=== PATIENT | female | born 1960 | race American Indian/Alaskan Native ===

== ENCOUNTER 2016-11-22 06:56 | Inpatient (IN) | payer MEDICARE ==
[2016-11-22] MEDS ORDERED: ECOTRIN PO ONE (07:26)
[2016-11-22 07:51] LABS: Basophils % (Auto) 0.6 % (0.0-1.8); Eosinophils % (Auto) 2.3 % (0.0-4.3); Hematocrit 30.7 % (30.3-42.9); Hemoglobin 10.2 gm/dl (10.1-14.3); Mean Corpuscular HGB Conc 33 % (30-34); Mean Corpuscular Hemoglobin 29 pg (28-32); Mean Corpuscular Volume 87 fl (79-97); Platelet Count 161 K/mm3 (140-440); Red Blood Count 3.52 M/mm3 (3.65-5.03); Red Cell Distribution Width 13.9 % (13.2-15.2); White Blood Count 5.9 K/mm3 (4.5-11.0)
[2016-11-22 07:53] LABS: INR 1.14 (0.87-1.13)
[2016-11-22 07:54] LABS: BUN/Creatinine Ratio 17.85; Calcium 9.1 mg/dL (8.4-10.2); Potassium 4.9 mmol/L (3.6-5.0)
[2016-11-22] MEDS ORDERED: NACL 0.9% 500 ML 500 ML IV SCH (08:00)
[2016-11-22] MEDS ORDERED: PLAVIX PO ONE (08:56)
[2016-11-22] MEDS ORDERED: NITROGLYCERIN SYRINGE 3 ML ONE (09:05)
[2016-11-22] MEDS ORDERED: VERSED ONE (09:05)
[2016-11-22] MEDS ORDERED: HEPARIN/NS 5000 UNIT/500ML(CATH LAB) 1,000 ML IR ONE (09:05)
[2016-11-22] MEDS ORDERED: XYLOCAINE 2% INFILTRATI ONE (09:05)
[2016-11-22] MEDS ORDERED: HEPARIN/NS 5000 UNIT/500ML(CATH LAB) 500 ML IR ONE (09:05)
[2016-11-22] MEDS: SUBLIMAZE ONE ×3 (10:06→10:37)
[2016-11-22] MEDS: HEPARIN 10,000 UNITS/10 ML ONE ×2 (10:31→10:35)
[2016-11-22] MEDS ORDERED: PLAVIX ONE (10:55)
[2016-11-22] MEDS ORDERED: ALUM-MAG HYDROX-SIMETH 200-200-20MG/5ML ONE (10:55)
--- NOTE | 2016-11-22 12:10 | Cardiac Catherization Report ---
CARDIAC CATHETERIZATION AND CORONARY ANGIOPLASTY REPORT REASON FOR PROCEDURE: The patient is a 56-year-old woman, status post 4-way coronary artery bypass done in 2003. She presents with unstable angina, abnormal outpatient stress test, was recommended for a right and left heart catheterization with bypass grafts. PROCEDURES: 1. Right heart catheterization. 2. Left heart catheterization with coronary angiography. 3. Saphenous vein and left internal mammary artery graft angiography. 4. Left ventriculography. 5. Coronary intervention with coronary stent implantation to the saphenous vein graft to the right coronary artery. The patient was prepped and draped in a sterile fashion after informed consent. The right femoral artery and vein were both entered using the Seldinger technique followed by placement of a 6-Venezuelan sheath in the artery and an 8-Venezuelan sheath in the vein. A [place]-Heri catheterization was performed with a [place]-Heri catheter advanced to the pulmonary artery position. A pigtail catheter was then advanced into the left ventricle. Cardiac output was measured using the thermodilution method. Simultaneous right and left heart filling pressures were then measured. The right heart [place]-Heri catheter was then withdrawn and right-sided filling pressures were measured in the right ventricle and the right atrial positions. Left ventricular angiography was then performed following which the pigtail catheter was withdrawn across the aortic valve and transaortic pressures were measured. Following this, simultaneous left and right coronary angiography was performed using #4 left Gabriela catheter and a #4 right Gabriela catheter. The right Gabriela catheter was then used for saphenous vein angiography. Following this, a left internal mammary artery catheter was used for left internal mammary artery graft angiography. FINDINGS: HEMODYNAMICS: The mean right atrial pressure was 20. Right ventricular pressure was 60/20-25. Pulmonary artery pressure was 60/30. The mean pulmonary artery wedge pressure was 25. Left ventricular end diastolic pressure was 25-30. Ascending aortic pressure was 177/81. There was no significant pressure gradient on pullback across the aortic valve. Cardiac output was 4.8 liters per minute. LEFT VENTRICULAR ANGIOGRAPHY: There was mild left ventricular systolic dysfunction, estimated ejection fraction of 40-45%. CORONARY ANGIOGRAPHY: The left main coronary artery contained mild irregularities. The left anterior descending artery was completely occluded at its ostium. This was a long segment of chronic total occlusion. The left internal mammary artery graft to the LAD was patent with good anastomosis to the mid LAD and good distal runoff. The saphenous vein graft that was described to the diagonal branch of the LAD was occluded at its ostium. The tanacross circumflex was a fairly large system, that terminated in two large obtuse marginal branches. There was a long segment of moderately severe disease of the proximal AV groove circumflex leading to these large terminal obtuse marginals. In the proximal circumflex, there was an up to 75-80% stenosis. The saphenous vein graft to the circumflex system was occluded at its ostium and nonfunctioning. The tanacross right coronary artery was dominant. This vessel was also occluded in its proximal segment. This was a long segment of chronic total occlusion. The saphenous vein graft to the distal right coronary artery contained a proximal, greater than 99% stenosis associated with delayed antegrade flow. CORONARY ANGIOPLASTY AND STENTING: After review of the angiograms, we recommended two targets for percutaneous revascularization. At this setting, we were concerned about subtotal occlusion of the vein graft to the distal right coronary artery. This was recommended for ad hoc coronary intervention followed by staged intervention at a later date to the tanacross proximal circumflex. We selected a right Gabriela guiding catheter and advanced to the ostium of the right coronary vein graft. A 0.014 inch Wine Maker 50 guidewire was then introduced across the stenotic segment. Following wire placement, in a primary stenting maneuver, we deployed a 3.0 x 15 mm Resolute drug-eluting stent, and inflated the stent to optimal pressures. Following stenting, angiograms revealed an excellent angiographic result at the treated segment, 0 residual stenosis and HANK 3 flow was restored down the vein graft. It also revealed that there was diffuse disease of this vein graft, with moderate narrowing of the distal segment before its anastomosis into the right posterior descending branch. No additional interventions were done to the diffuse moderate disease of the distal segments of the vein graft. HANK 3 flow was established and there was an excellent angiographic result at the primary treated lesion at the proximal graft. The procedure was well tolerated by the patient and there were no complications. The catheters were removed, sheath removed, hemostasis achieved using manual compression. The patient was returned to the postprocedure unit in stable condition. CONCLUSIONS: 1. Moderate to severe elevation of the right and left heart filling pressures, moderate to severe pulmonary hypertension. 2. Severe 3-vessel coronary artery disease. 3. Patent left internal mammary artery graft to the LAD. 4. Occluded saphenous vein grafts x 2, intended targets were the diagonal branch of the LAD and the obtuse marginal branch of the circumflex. 5. Subtotal occlusion, 99% stenosis of the proximal segment of the saphenous vein graft to the distal right coronary artery. 6. Mild left ventricular systolic dysfunction, ejection fraction 40-45%. 7. Successful ad hoc angioplasty and stenting of the saphenous vein graft to the right coronary artery, excellent angiographic results following deployment of a 3.0 mm drug-eluting stent. The patient will be recommended for elective staged coronary intervention to the proximal AV groove circumflex. [facility]# [id number] [place]/NT[place]
[2016-11-22] MEDS ORDERED: CATAPRES PO PRN (12:53)
--- NOTE | 2016-11-22 12:57 | Event Note ---
Date: 11/22/16 Outpatient cardiac cath with successful PCI of SVG to RCA, 99% to 0% with 3.0mm DE stent. Admit overnight for post PCI observation. Check Cr level in am before discharge on meds.
[2016-11-22] MEDS ORDERED: NON-FORMULARY (Losartan/Hydrochlorothiazide [Losartan-Hctz 100-25 Mg Tab] 1 EACH) PO SCH (13:00)
[2016-11-22] MEDS: ULTRAM PO PRN ×2 (13:45→17:16)
[2016-11-22] MEDS ORDERED: CATAPRES ONE (14:29)
[2016-11-22] MEDS ORDERED: NACL 0.9% 1000 ML 1,000 ML ONE (15:52)
[2016-11-22] MEDS: NACL 0.9% 1000 ML 1,000 ML IV SCH ×2 (15:55→17:41)
[2016-11-22] MEDS: HCTZ PO SCH (17:17)
[2016-11-22] MEDS: COZAAR PO SCH (17:18)
[2016-11-22] MEDS: IMDUR PO SCH (17:42)
[2016-11-22] MEDS: NORVASC PO SCH (17:42)
[2016-11-22] MEDS ORDERED: NON-FORMULARY (Rosuvastatin (Nf) 10 MG) PO SCH (22:00)
[2016-11-22] MEDS: COREG PO SCH (22:05)
[2016-11-22] MEDS: LASIX PO SCH (22:09)
[2016-11-23] MEDS: ULTRAM PO PRN ×2 (01:36→05:53)
[2016-11-23 07:29] LABS: Basophils % (Auto) 0.9 % (0.0-1.8); Eosinophils % (Auto) 3.4 % (0.0-4.3); Hematocrit 23.8 % (30.3-42.9); Hemoglobin 7.7 gm/dl (10.1-14.3); Mean Corpuscular HGB Conc 32 % (30-34); Mean Corpuscular Hemoglobin 28 pg (28-32); Mean Corpuscular Volume 87 fl (79-97); Platelet Count 135 K/mm3 (140-440); Red Blood Count 2.74 M/mm3 (3.65-5.03); Red Cell Distribution Width 13.7 % (13.2-15.2); White Blood Count 4.1 K/mm3 (4.5-11.0)
--- NOTE | 2016-11-23 07:32 | Admit Criteria Form ---
Admission Criteria Documentation: TELEMETRY CARE Telemetry Admission Guidelines (Place 'X' for any and all applicable criteria): Admission to telemetry [A] may be indicated for ANY ONE of the following(1)(2)(3 )(4)(5): [X ]I. Cardiac disease, including ANY ONE of the following (9)(10)(11)(12)( 13): [ ]a) Postacute [place] [ ]b) Low-risk patients with ST-segment elevation [place] who have undergone successful percutaneous coronary intervention [ ]c) Unstable angina [ ]d) Suspected [place] (until it is ruled out) [ ]e) Post cardiac surgery (first 48 to 72 hours unless complications occur) [ ]f) Acute arrhythmias (including significant tachycardia or bradycardia) [B] [ ]g) Firing of an implantable cardioverter defibrillator [C] [ ]h) Suspected pacemaker or implantable cardioverter defibrillator malfunction (10) [ ]i) New administration or adjustment of an antiarrhythmic drug [D ] [ ]j) Child admitted for acute congestive heart failure [ ]j) Long QT syndrome [ ]k) Advanced heart block (eg, second-degree Mobitz type II, third- degree heart block) [ ]l) Acute myocarditis or pericarditis [X ]m) Short-term (ambulatory or inpatient) monitoring after a cardiac procedure as indicated by ANY ONE of the following [E]: [ ]i) Electrophysiologic studies [X ]ii) Percutaneous coronary intervention with stent placement [ ]iii) Pacemaker placement with cardiac conduction defect [ ]iv) Implantable cardiac defibrillator placement [ ]II. Drug overdose or poisoning with substance that causes arrhythmias or QT prolongation (eg, phenothiazines, sympathomimetic agents, cyclic antidepressants, digitalis, antiarrhythmic drugs)(15) [ ]III. Short-term (ambulatory or inpatient) monitoring after therapeutic or diagnostic procedure requiring conscious sedation or anesthesia (eg, endoscopy, elective cardioversion) [ ]IV. Acute cerebrovascular even[F](18) [ ]V. Massive blood transfusion (eg, at least 10 units of packed red blood cells in 24 hours) [ ]. Variceal bleeding after endoscopy, sclerotherapy, or IV vasopressin [ ]VII. Uncorrected electrolyte abnormalities associated with an increased risk of dangerous arrhythmia [G]; examples include [ ]a) Hyperkalemia with attributable ECG changes [ ]b) Potassium greater than 6.5 mmol/L (mEq/L) in a patient without history of chronic renal disease [ ]c) Prolonged QT attributed to hypokalemia, hypomagnesemia, or hypocalcemia [ ]VIII.Unexplained syncope or other neurologic event suspected of being due to arrhythmia due to a finding that increases risk; examples include(19)(20)(21): [ ]a) High-risk ECG findings (eg, bifascicular block, bradycardia, abnormal QT interval, ventricular pre- excitation) [ ]b) History of previous syncope due to arrhythmia [ ]c) Abnormal ventricular function (eg, reduced ejection fraction ) [ ]d) Exertional or supine syncope [ ]e) Concerning syncope characteristics (eg, sudden loss of consciousness without prodrome) [ ]f) Family history of sudden [ ]g) Use of arrhythmogenic medication [ ]h) Suspected cardiac ischemia [ ]i) Known channelopathy (eg, long QT syndrome, Brugada syndrome, or catecholaminergic paroxysmal ventricular tachycardia) [ ]j) Known structural heart disease (eg, hypertrophic cardiomyopathy , severe valvular disease) [ ]k) Palpitations preceding syncope The original [employer] content created by [employer] has been revised. The portions of the content which have been revised are identified through the use of italic text or in bold, and [email or web address] has neither reviewed nor approved the modified material. All other unmodified content is copyright [employer]. Please see references footnoted in the original [employer] edition 2016 Admission Criteria Met: Yes
[2016-11-23 08:03] LABS: Chloride 106.5 mmol/L (98-107); Potassium 4.9 mmol/L (3.6-5.0)
--- NOTE | 2016-11-23 08:19 | XRay Report ---
AP CHEST : 11/23/16 CLINICAL: Status post PCI. COMPARISON:None FINDINGS: Mild cardiomegaly with redistribution of pulmonary blood flow to the upper lobes. Median sternotomy wires and mediastinal surgical clips. The lungs are normally expanded and clear. The bones and soft tissues are unremarkable. IMPRESSION: Mild cardiomegaly and pulmonary venous hypertension. No pulmonary edema.
[2016-11-23] MEDS: COREG PO SCH ×2 (09:58→22:27)
[2016-11-23] MEDS: IMDUR PO SCH (09:59)
[2016-11-23] MEDS: PLAVIX PO SCH (09:59)
[2016-11-23] MEDS: ECOTRIN PO SCH (09:59)
[2016-11-23] MEDS: COZAAR PO SCH (09:59)
[2016-11-23] MEDS: NORVASC PO SCH (09:59)
[2016-11-23] MEDS: LASIX PO SCH (10:00)
[2016-11-23] MEDS: HCTZ PO SCH (10:00)
--- NOTE | 2016-11-23 10:28 | Progress Note ---
Assessment and Plan Coronary artery disease with prior CABG Right and C findings: moderate to severe elevated left and right heart filling pressures; moderate to severe pulmonary HTN 3 vessel disease ESTRADA to LAD patent SVG x 2 occluded (Diag and OM) subtotal occlusion of proximal segment of SVG to RCA treated with a drug eluting stent EF 40-45% Acute renal failure Acute drop in H&H Ischemic Cardiomyopathy Hypertension Plan: Continue IV hydration. Will repeat a CBC. Daily labs. Subjective Date of service: 11/23/16 Interval history: Patient complains of nausea. Noted an acute drop in H&H. Cath site intact. Patient denies bleeding from any source. Objective Vital Signs Temp Pulse Pulse Pulse Resp BP BP 11/23/16 09:59 57 L 132/63 11/23/16 09:58 58 L 132/63 11/23/16 09:30 98.4 F 56 L 18 132/63 11/23/16 08:36 11/23/16 05:34 98 F 65 20 154/70 11/23/16 00:54 98 F 54 L 22 94/54 11/22/16 20:46 97.4 F L 52 L 20 121/65 11/22/16 17:42 60 11/22/16 17:41 60 11/22/16 17:18 58 L 11/22/16 16:25 97.5 F L 56 L 18 163/83 11/22/16 15:30 57 L 12 151/65 11/22/16 15:15 60 14 123/67 11/22/16 15:00 60 14 123/67 11/22/16 14:55 60 14 123/67 11/22/16 14:45 62 12 165/75 11/22/16 14:32 62 165/75 11/22/16 14:15 59 L 16 165/75 11/22/16 13:45 62 14 176/84 11/22/16 13:15 61 14 11/22/16 13:03 58 L 11/22/16 12:45 62 12 142/76 11/22/16 12:15 60 12 126/72 11/22/16 11:45 60 12 156/71 11/22/16 11:31 59 L 16 155/71 11/22/16 11:16 60 14 156/70 11/22/16 11:02 98.4 F 62 11 L 154/76 Pulse Ox 06/14/17 09:59 11/23/16 09:58 11/23/16 09:30 96 11/23/16 08:36 95 11/23/16 05:34 97 11/23/16 00:54 94 11/22/16 20:46 97 11/22/16 17:42 11/22/16 17:41 11/22/16 17:18 11/22/16 16:25 100 11/22/16 15:30 100 11/22/16 15:15 98 11/22/16 15:00 98 11/22/16 14:55 98 11/22/16 14:45 96 11/22/16 14:32 11/22/16 14:15 100 11/22/16 13:45 100 11/22/16 13:15 100 11/22/16 13:03 11/22/16 12:45 95 11/22/16 12:15 95 11/22/16 11:45 97 11/22/16 11:31 97 11/22/16 11:16 91 11/22/16 11:02 95 - Physical Examination General: No Apparent Distress HEENT: Positive: PERRL Neck: Positive: trachea midline Cardiac: Positive: Reg Rate and Rhythm Incision: Cardiac Cath Site - Labs and Meds CBC 11/23/16 Range/Units 06:49 WBC 4.1 L (4.5-11.0) K/mm3 RBC 2.74 L (3.65-5.03) M/mm3 Hgb 7.7 L (10.1-14.3) gm/dl Hct 23.8 L D (30.3-42.9) % Plt Count 135 L (140-440) K/mm3 Lymph # 1.2 (1.2-5.4) K/mm3 [place] # 0.6 (0.0-0.8) K/mm3 Eos # 0.1 (0.0-0.4) K/mm3 Baso # 0.0 (0.0-0.1) K/mm3 Comprehensive Metabolic Panel 11/23/16 Range/Units 06:49 Sodium 138 (137-145) mmol/L Potassium 4.9 (3.6-5.0) mmol/L Chloride 106.5 (98-107) mmol/L Carbon Dioxide 24 (22-30) mmol/L BUN 27 H (7-17) mg/dL Creatinine 1.8 H (0.7-1.2) mg/dL Glucose 137 H (65-100) mg/dL Calcium 8.0 L (8.4-10.2) mg/dL
[2016-11-23 11:39] LABS: Creatine Kinase MB 2.7 ng/mL (0.0-4.0)
[2016-11-23 11:46] LABS: Basophils % (Auto) 0.8 % (0.0-1.8); Eosinophils % (Auto) 2.7 % (0.0-4.3); Hematocrit 26.3 % (30.3-42.9); Hemoglobin 8.5 gm/dl (10.1-14.3); Mean Corpuscular HGB Conc 32 % (30-34); Mean Corpuscular Hemoglobin 29 pg (28-32); Mean Corpuscular Volume 88 fl (79-97); Platelet Count 150 K/mm3 (140-440); Red Blood Count 2.98 M/mm3 (3.65-5.03); Red Cell Distribution Width 14.2 % (13.2-15.2); White Blood Count 5.4 K/mm3 (4.5-11.0)
[2016-11-23] MEDS ORDERED: ZOFRAN PO PRN (12:00)
[2016-11-23] MEDS: ZOFRAN IV PRN ×2 (12:14→20:45)
[2016-11-23] MEDS: NACL 0.9% 1000 ML 1,000 ML IV SCH (12:56)
[2016-11-24 06:16] LABS: Hematocrit 26.8 % (30.3-42.9); Hemoglobin 8.6 gm/dl (10.1-14.3)
[2016-11-24 06:30] LABS: BUN/Creatinine Ratio 12.22; Calcium 8.4 mg/dL (8.4-10.2); Chloride 106.4 mmol/L (98-107); Potassium 5.9 mmol/L (3.6-5.0)
[2016-11-24 07:36] LABS: ISTAT Base Excess -8; ISTAT HCO3 19.3; ISTAT PCO2 42.6 (35-45); ISTAT PH 7.264 (7.35-7.45); ISTAT PO2 33 (80-105); ISTAT SO2 56; ISTAT TCO2 21
[2016-11-24 07:36] LABS: ISTAT Base Excess -8; ISTAT HCO3 18.8; ISTAT PCO2 39.5 (35-45); ISTAT PH 7.285 (7.35-7.45); ISTAT PO2 64 (80-105); ISTAT SO2 90; ISTAT TCO2 20
--- NOTE | 2016-11-24 07:36 | Cat Scan Report ---
CT HEAD WITHOUT CONTRAST: HISTORY: Altered mental status. No comparison at this facility. A large chronic infarct in the right posterior cerebral artery territory is identified. Chronic lacunar infarct in the right lateral thalamus measures 7 mm. Chronic lacunar infarcts in both sides of the ismael measure up to 7 mm. There is no evidence for hemorrhage, mass, extra-axial fluid collection or large area of acute ischemia on noncontrast CT. Ventricular size is within normal limits. The basal cisterns are clear. The visualized sinuses and mastoid air cells are normal. No calvarial abnormality. IMPRESSION: Multiple chronic infarcts as outlined above. No acute intracranial process is appreciated. If further evaluation is needed, MRI brain without contrast is recommended.
[2016-11-24 07:43] LABS: Albumin 3.5 g/dL (3.9-5); Albumin/Globulin Ratio 1.2 %; BUN/Creatinine Ratio 11.78; Bilirubin,Total 0.6 mg/dL (0.1-1.2); Calcium 8.5 mg/dL (8.4-10.2); Chloride 106.1 mmol/L (98-107); Potassium 5.8 mmol/L (3.6-5.0); Total Protein 6.5 g/dL (6.3-8.2)
--- NOTE | 2016-11-24 08:58 | Progress Note ---
Assessment and Plan Altered mental status Head CT shows no acute intracranial process Hyperkalemia Coronary artery disease with prior CABG Right and LHC findings: moderate to severe elevated left and right heart filling pressures; moderate to severe pulmonary HTN 3 vessel disease ESTRADA to LAD patent SVG x 2 occluded (Diag and OM) subtotal occlusion of proximal segment of SVG to RCA treated with a drug eluting stent EF 40-45% Acute renal failure Acute drop in H&H Ischemic Cardiomyopathy Hypertension Plan: Transfer to CCU for close monitoring. 12 lead ECG. Continue IV hydration. We will treat hyperkalemia with kayexalate 30gm once and get a Nephrology consultation. Monitor labs. Subjective Date of service: 11/24/16 Interval history: Patient reportedly became lethargic after she received zofran for nausea. Patient also noted to have an increase in creatinine and potassium. Objective Vital Signs Temp Pulse Pulse Pulse Pulse Resp BP 11/24/16 04:41 98.3 F 73 18 11/24/16 00:26 97.9 F 69 18 11/23/16 20:34 11/23/16 20:00 98.2 F 62 18 11/23/16 18:19 97.7 F 59 L 18 11/23/16 14:00 98.5 F 63 18 11/23/16 13:44 53 L 11/23/16 13:00 53 L 20 11/23/16 09:59 57 L 132/63 11/23/16 09:58 58 L 132/63 11/23/16 09:30 98.4 F 56 L 18 BP Pulse Ox 11/24/16 04:41 173/75 98 11/24/16 00:26 153/68 98 11/23/16 20:34 96 11/23/16 20:00 141/65 97 11/23/16 18:19 156/74 95 11/23/16 14:00 149/68 92 11/23/16 13:44 11/23/16 13:00 98 11/23/16 09:59 11/23/16 09:58 11/23/16 09:30 132/63 96 - Physical Examination General: No Apparent Distress HEENT: Positive: PERRL Neck: Positive: trachea midline Incision: Cardiac Cath Site - Labs and Meds Cardiac Enzymes 11/23/16 11/24/16 Range/Units 06:49 07:09 AST 100 H (5-40) units/L CK-MB (CK-2) 2.7 (0.0-4.0) ng/mL CBC 11/23/16 11/24/16 Range/Units 11:07 05:28 WBC 5.4 (4.5-11.0) K/mm3 RBC 2.98 L (3.65-5.03) M/mm3 Hgb 8.5 L 8.6 L (10.1-14.3) gm/dl Hct 26.3 L 26.8 L (30.3-42.9) % Plt Count 150 (140-440) K/mm3 Lymph # 1.3 (1.2-5.4) K/mm3 Motley # 0.7 (0.0-0.8) K/mm3 Eos # 0.1 (0.0-0.4) K/mm3 Baso # 0.0 (0.0-0.1) K/mm3 Comprehensive Metabolic Panel 11/24/16 11/24/16 Range/Units 05:28 07:09 Sodium 137 137 (137-145) mmol/L Potassium 5.9 H D 5.8 H (3.6-5.0) mmol/L Chloride 106.4 106.1 (98-107) mmol/L Carbon Dioxide 19 L 20 L (22-30) mmol/L BUN 33 H 33 H (7-17) mg/dL Creatinine 2.7 H 2.8 H (0.7-1.2) mg/dL Glucose 162 H 158 H (65-100) mg/dL Calcium 8.4 8.5 (8.4-10.2) mg/dL AST 100 H (5-40) units/L ALT 118 H (7-56) units/L Alkaline Phosphatase 110 (35-129) units/L Total Protein 6.5 (6.3-8.2) g/dL Albumin 3.5 L (3.9-5) g/dL
[2016-11-24] MEDS: NACL 0.9% 1000 ML 1,000 ML IV SCH ×2 (09:11→20:23)
[2016-11-24] MEDS ORDERED: KIONEX PO ONE (09:30)
--- NOTE | 2016-11-24 09:33 | Consultation ---
History of Present Illness - Reason for Consult Consult date: 11/24/16 - History of Present Illness pt was seen and examined. Discussed with pt's . K- high- hold ARB. Monitor K Medications and Allergies Allergies Allergy/AdvReac Type Severity Reaction Status Date / Time Penicillins Allergy Rash Verified 11/22/16 08:57 Home Medications Medication Instructions Recorded Confirmed Last Taken Type Aspirin [Aspirin TAB] 325 mg PO QDAY 11/22/16 11/22/16 11/22/16 History Carvedilol [Coreg] 25 mg PO BID 11/22/16 11/22/16 11/21/16 History Clopidogrel Bisulfate [Plavix] 75 mg PO DAILY 11/22/16 11/22/16 11/22/16 History Furosemide [Lasix] 20 mg PO BID 11/22/16 11/22/16 11/21/16 History ISOSORBIDE MONOnitrate [Imdur ER] 30 mg PO DAILY 11/22/16 11/22/16 11/21/16 History Insulin Glargine [Lantus] 10 unit SUB-Q QHS 11/22/16 11/22/16 11/21/16 History Losartan/Hydrochlorothiazide 1 each PO DAILY 11/22/16 11/22/16 11/21/16 History [Losartan-Hctz 100-25 mg Tab] Rosuvastatin (Nf) [Crestor] 10 mg PO QHS 11/22/16 11/22/16 11/21/16 History amLODIPine [Norvasc] 5 mg PO DAILY 11/22/16 11/22/16 11/21/16 History cloNIDine [Catapres] 0.1 mg PO DAILY 11/22/16 11/22/16 6 Months Ago History Active Meds: Active Medications Amlodipine Besylate (Norvasc) 5 mg PO DAILY [facility] Last Admin: 11/23/16 09:59 Dose: 5 mg Aspirin (Ecotrin) 325 mg PO QDAY [facility] Last Admin: 11/23/16 09:59 Dose: 325 mg Atorvastatin Calcium (Lipitor) 40 mg PO QHS [facility] Last Admin: 11/23/16 22:28 Dose: Not Given Carvedilol (Coreg) 25 mg PO BID [facility] Last Admin: 11/23/16 22:27 Dose: Not Given Clonidine HCl (Catapres) 0.1 mg PO Q4H PRN PRN Reason: SBP >150 Last Admin: 11/22/16 14:32 Dose: 0.1 mg Clopidogrel Bisulfate (Plavix) 75 mg PO DAILY [facility] Last Admin: 11/23/16 09:59 Dose: 75 mg Sodium Chloride (Nacl 0.9% 1000 Ml) 1,000 mls @ 100 mls/hr IV DIRECT ANGELLA Last Admin: 11/24/16 09:11 Dose: 100 mls/hr Insulin Human Regular (Novolin R) 0 units SUB-Q ACHS ANGELLA PRN Reason: Protocol Last Admin: 11/24/16 09:09 Dose: Not Given Isosorbide Mononitrate (Imdur) 30 mg PO DAILY [facility] Last Admin: 11/23/16 09:59 Dose: 30 mg Losartan Potassium (Cozaar) 100 mg PO QDAY [facility] Last Admin: 11/23/16 09:59 Dose: 100 mg Ondansetron HCl (Zofran) 4 mg IV Q8H PRN PRN Reason: Nausea And Vomiting Last Admin: 11/23/16 20:45 Dose: 4 mg Sodium Polystyrene Sulfonate (Kionex) 30 gm AR ONCE ONE Stop: 11/24/16 09:31 Tramadol HCl (Ultram) 50 mg PO Q4H PRN PRN Reason: Pain, Moderate (4-6) Last Admin: 11/23/16 05:53 Dose: 50 mg Exam - Constitutional Vitals: Temp Pulse Resp BP Pulse Ox 98.3 F 73 18 173/75 97 11/24/16 04:41 11/24/16 04:41 11/24/16 04:41 11/24/16 04:41 11/24/16 09:11 Results - Labs CBC & Chem 7: 11/24/16 05:28 11/24/16 15:24 Labs: Abnormal lab results 11/23/16 11/23/16 11/24/16 Range/Units 11:07 21:24 05:28 RBC 2.98 L (3.65-5.03) M/mm3 Hgb 8.5 L (10.1-14.3) gm/dl Hct 26.3 L (30.3-42.9) % Cottle % (Auto) 13.2 H (0.0-7.3) % POC ABG pH (7.35-7.45) POC ABG pO2 (80-105) Potassium 5.9 H D (3.6-5.0) mmol/L Carbon Dioxide 19 L (22-30) mmol/L BUN 33 H (7-17) mg/dL Creatinine 2.7 H (0.7-1.2) mg/dL Glucose 162 H (65-100) mg/dL POC Glucose 174 H (70-105) AST (5-40) units/L ALT (7-56) units/L Albumin (3.9-5) g/dL 11/24/16 11/24/16 11/24/16 Range/Units 05:28 06:23 07:05 RBC (3.65-5.03) M/mm3 Hgb 8.6 L (10.1-14.3) gm/dl Hct 26.8 L (30.3-42.9) % Cottle % (Auto) (0.0-7.3) % POC ABG pH 7.264 L (7.35-7.45) POC ABG pO2 33 L (80-105) Potassium (3.6-5.0) mmol/L Carbon Dioxide (22-30) mmol/L BUN (7-17) mg/dL Creatinine (0.7-1.2) mg/dL Glucose (65-100) mg/dL POC Glucose 209 H (70-105) AST (5-40) units/L ALT (7-56) units/L Albumin (3.9-5) g/dL 11/24/16 11/24/16 Range/Units 07:09 07:19 RBC (3.65-5.03) M/mm3 Hgb (10.1-14.3) gm/dl Hct (30.3-42.9) % Cottle % (Auto) (0.0-7.3) % POC ABG pH 7.285 L (7.35-7.45) POC ABG pO2 64 L (80-105) Potassium 5.8 H (3.6-5.0) mmol/L Carbon Dioxide 20 L (22-30) mmol/L BUN 33 H (7-17) mg/dL Creatinine 2.8 H (0.7-1.2) mg/dL Glucose 158 H (65-100) mg/dL POC Glucose (70-105) AST 100 H (5-40) units/L ALT 118 H (7-56) units/L Albumin 3.5 L (3.9-5) g/dL
[2016-11-24] MEDS: IMDUR PO SCH (10:00)
[2016-11-24] MEDS ORDERED: KIONEX PR NR (10:00)
[2016-11-24] MEDS: COREG PO SCH ×2 (10:00→23:56)
[2016-11-24] MEDS ORDERED: TRIDIL DRIP 50MG/250ML 50 MG/250 ML BOTTLE IV SCH (11:00)
[2016-11-24] MEDS: ECOTRIN PO SCH (12:58)
[2016-11-24] MEDS: PLAVIX PO SCH (12:59)
[2016-11-24] MEDS ORDERED: D50W (25GM) IV ONE ×2 (13:00→14:00)
[2016-11-24] MEDS ORDERED: NACL 0.9% 500 ML 500 ML IV NR (14:34)
[2016-11-24 16:08] LABS: BUN/Creatinine Ratio 12.33; Calcium 8.9 mg/dL (8.4-10.2); Chloride 105.2 mmol/L (98-107); Potassium 5.2 mmol/L (3.6-5.0)
[2016-11-24] MEDS: NORVASC PO SCH (20:19)
[2016-11-24] MEDS: ZOFRAN IV PRN (23:56)
--- NOTE | 2016-11-25 04:50 | Consultation ---
RENAL CONSULTATION REASON FOR CONSULTATION: Acute renal failure and hyperkalemia. HISTORY OF PRESENT ILLNESS: This 56-year-old -[place] female with a history of coronary artery disease, underwent cardiac catheterization on 11/22/2016 with successful PCI of SVG to RCA with a 3 mm Xience drug eluting stent. On 11/22/2016, BUN was 25, creatinine 1.4. On 11/23/2016, BUN 27, creatinine 1.8. Today on 11/24/2016, BUN 37, creatinine 3.0, potassium 5.2, AST 100, ALT 118. The patient's potassium was 5.8 earlier, which came down to 5.2 now. ABG showed pH of 7.28, pCO2 of 39, pO2 of 64. The patient has been lethargic. Unable to obtain much information from the patient. Discussed with the patient's at bedside. The patient was reported to have nausea and vomiting. CT scan of the head was reported to have no acute findings. She had a drop in hemoglobin and hematocrit from 10.2-8.5 on 11/23/2016. Today, hemoglobin 8.6. PAST MEDICAL HISTORY: Coronary artery disease status post CABG, hypertension, ischemic cardiomyopathy. PERSONAL HISTORY: No history of smoking, alcohol, or drug abuse. FAMILY HISTORY: No family history of kidney failure. ALLERGIES: PENICILLIN. CURRENT MEDICATIONS: Amlodipine 5 mg once a day, aspirin 325 mg once a day, atorvastatin 40 mg once a day, carvedilol 25 mg b.i.d., Plavix 75 mg once a day, insulin, isosorbide 30 mg once a day. REVIEW OF SYSTEMS: The patient is lethargic, unable to obtain much information. No reports of fever or chills or bleeding reported. PHYSICAL EXAMINATION: GENERAL: The patient is lethargic, but arousable, but not participating in conversation. VITAL SIGNS: Blood pressure 148/69, pulse 78, afebrile. HEENT: Head is normocephalic. Conjunctivae pale. Oral mucosa, tongue and lips are dry. NECK: No JVD. No thyroid enlargement. LUNGS: Clear. HEART: S1, S2 regular. A 2/6 systolic murmur along the left sternal border. ABDOMEN: Soft, bowel sounds present, nontender. No masses palpable. EXTREMITIES: No significant edema. DIAGNOSTIC DATA: Hemoglobin 8.6, hematocrit 26.8. Sodium 139, potassium 5.2, chloride 105, CO2 of 20, BUN 37, creatinine 3.0, glucose 144, AST 100, ALT 118, albumin 3.5. ASSESSMENT AND PLAN: 1. Acute on chronic kidney disease stage 3. 2. Status post cardiac catheterization on 11/22/2016. Acute worsening, may be secondary to contrast exposure with possible acute tubular necrosis. 3. Coronary artery disease status post stent. 4. Ischemic cardiomyopathy, left ventricular ejection fraction 40-45%. 5. Hyperkalemia. 6. Hypertension. 7. Anemia. Check urine studies. Adjust medications per renal function. Hold off on ARB at present. Medical treatment for hyperkalemia as ordered. Continue present IV hydration. Hold off on diuretics for now. Abnormal liver enzymes may be due to the above. Avoid hepatotoxic agents. Monitor liver enzymes closely. Discussed with the patient's about the above. Thank you for the consultation. JOB# [id number] REAGAN/TERE
[2016-11-25 04:54] LABS: Bilirubin,Urine NEG (Negative); Blood,Urine NEG (Negative); Ketones,Urine NEG (Negative); Leukocyte Esterase,Urine NEG (Negative); Nitrite,Urine NEG (Negative); Urobilinogen,Urine < 2.0 mg/dL (<2.0)
[2016-11-25 04:57] LABS: Potassium, Urine 70.2 mEq/L
[2016-11-25] MEDS: ZOFRAN IV PRN ×2 (05:15→22:45)
[2016-11-25 07:53] LABS: Basophils % (Auto) 0.4 % (0.0-1.8); Hemoglobin 9.5 gm/dl (10.1-14.3); Mean Corpuscular HGB Conc 33 % (30-34); Mean Corpuscular Hemoglobin 29 pg (28-32); Mean Corpuscular Volume 88 fl (79-97); Platelet Count 119 K/mm3 (140-440); Red Cell Distribution Width 13.8 % (13.2-15.2); White Blood Count 8.5 K/mm3 (4.5-11.0)
[2016-11-25 08:06] LABS: BUN/Creatinine Ratio 14.61; Calcium 8.2 mg/dL (8.4-10.2); Chloride 110.1 mmol/L (98-107); Potassium 4.8 mmol/L (3.6-5.0)
[2016-11-25] MEDS: PLAVIX PO SCH (10:52)
[2016-11-25] MEDS: IMDUR PO SCH (10:52)
[2016-11-25] MEDS: COREG PO SCH ×2 (10:52→22:25)
[2016-11-25] MEDS: ECOTRIN PO SCH (10:52)
[2016-11-25] MEDS: NORVASC PO SCH (10:52)
[2016-11-25] MEDS: NACL 0.9% 1000 ML 1,000 ML IV SCH (10:54)
--- NOTE | 2016-11-25 11:46 | Ultrasound Report ---
ULTRASOUND RENAL BILATERAL HISTORY: Acute renal failure. TECHNIQUE: transabdominal ultrasound with color Doppler interrogation. FINDINGS: The right kidney measures 11.2cm. Right renal cortex: 1.1cm. The left kidney measures 10.6cm. Left renal cortex: 1.0cm. The kidneys are normal size, contour and position. There is increased renal parenchymal echotexture bilaterally. Corticomedullary differentiation is preserved. No evidence for cystic disease, mass, hydronephrosis or perinephric fluid. The bladder is decompressed with a Pond catheter. Trace ascites in Peacock's pouch. IMPRESSION: Renal parenchymal disease. No focal renal lesion or hydronephrosis. Trace ascites.
--- NOTE | 2016-11-25 12:14 | Progress Note ---
Assessment and Plan Impression * Acute kidney injury. Most likely contrast nephropathy * Coronary artery disease. Status post angiogram and angioplasty. Patient also has a history of coronary artery bypass surgery * Uncontrolled Hypertension * Cardiomyopathy with an ejection fraction of 40-45% * Anemia Recommendations * Patient's renal function appears to be stabilizing. * Her baseline creatinine however is approximately 1.4 * Patient is currently nonoliguric * Her urine shows 2+ dipstick protein and fractional excretion of sodium is 0.13 % * Continue gentle hydration. He is also getting acidotic. Shall add bicarbonate to the IV fluid * Her hyperkalemia has been corrected * Avoid nephrotoxins * Monitor patient's renal function, fluid status and electrolytes closely Subjective Date of service: 11/25/16 Interval history: Patient was transferred to ICU yesterday because of uncontrolled hypertension. He is currently on a nitroglycerin drip. Patient denies any shortness of breath or chest pain. No nausea or vomiting Objective - Vital Signs Vital signs: Vital Signs - 12hr 11/25/16 11/25/16 11/25/16 00:16 00:30 00:46 Temperature Pulse Rate 69 68 67 Pulse Rate [ From Monitor] Respiratory 8 L 9 L 8 L Rate Blood Pressure 163/76 163/76 163/76 O2 Sat by Pulse 100 100 100 Oximetry 11/25/16 11/25/16 11/25/16 01:00 01:15 01:30 Temperature Pulse Rate 67 66 67 Pulse Rate [ From Monitor] Respiratory 11 L 11 L 8 L Rate Blood Pressure 153/70 153/74 148/75 O2 Sat by Pulse 99 100 100 Oximetry 11/25/16 11/25/16 11/25/16 01:45 02:00 02:15 Temperature 98.1 F 98 F Pulse Rate 70 69 68 Pulse Rate [ From Monitor] Respiratory 12 10 L 11 L Rate Blood Pressure 143/73 162/78 155/74 O2 Sat by Pulse 98 98 98 Oximetry 11/25/16 11/25/16 11/25/16 02:30 02:45 03:00 Temperature 99 F Pulse Rate 68 71 70 Pulse Rate [ From Monitor] Respiratory 11 L 12 9 L Rate Blood Pressure 155/71 168/75 168/75 O2 Sat by Pulse 97 100 97 Oximetry 11/25/16 11/25/16 11/25/16 03:15 03:30 03:45 Temperature 99 F 99 F Pulse Rate 70 71 70 Pulse Rate [ From Monitor] Respiratory 10 L 12 12 Rate Blood Pressure 166/82 149/74 165/74 O2 Sat by Pulse 97 96 96 Oximetry 11/25/16 11/25/16 11/25/16 04:00 04:15 04:30 Temperature 99 F 99 F Pulse Rate 70 72 71 Pulse Rate [ 69 From Monitor] Respiratory 16 11 L 10 L Rate Blood Pressure 167/78 169/80 166/69 O2 Sat by Pulse 99 94 82 L Oximetry 11/25/16 11/25/16 11/25/16 04:45 05:00 05:15 Temperature 99 F Pulse Rate 70 71 71 Pulse Rate [ From Monitor] Respiratory 10 L 13 12 Rate Blood Pressure 168/60 165/58 156/78 O2 Sat by Pulse 94 96 92 Oximetry 11/25/16 11/25/16 11/25/16 05:30 05:45 06:00 Temperature Pulse Rate 69 71 70 Pulse Rate [ From Monitor] Respiratory 13 10 L 12 Rate Blood Pressure 170/84 177/86 169/83 O2 Sat by Pulse 94 95 92 Oximetry 11/25/16 11/25/16 11/25/16 06:16 06:30 06:45 Temperature Pulse Rate 71 70 69 Pulse Rate [ From Monitor] Respiratory 10 L 11 L 9 L Rate Blood Pressure 165/79 166/80 161/84 O2 Sat by Pulse 90 94 90 Oximetry 11/25/16 11/25/16 11/25/16 07:00 07:16 07:30 Temperature Pulse Rate 75 69 70 Pulse Rate [ From Monitor] Respiratory 19 12 13 Rate Blood Pressure 161/84 161/84 146/72 O2 Sat by Pulse 86 91 98 Oximetry 11/25/16 11/25/16 11/25/16 07:45 08:00 09:15 Temperature 98.5 F Pulse Rate 67 71 Pulse Rate [ From Monitor] Respiratory 11 L 12 Rate Blood Pressure 162/76 157/78 O2 Sat by Pulse 96 96 99 Oximetry 11/25/16 11/25/16 09:28 10:52 Temperature Pulse Rate 71 Pulse Rate [ From Monitor] Respiratory Rate Blood Pressure 157/79 O2 Sat by Pulse 98 Oximetry - General Appearance General appearance: well-developed, well-nourished, appears stated age EENT: PERRL, mucous membranes moist Neck: no JVD, no thyromegaly, no carotid bruit, supple Respiratory: Present: Clear to Ascultation, Decreased Breath Sounds (at the bases) Cardiology: regular, normal heart rate, S1S2, no murmurs Gastrointestinal: normal, normoactive bowel sounds Integumentary: no rash, other (1+ edema) - Lab 11/25/16 07:00 11/25/16 07:00 Most recent lab results Calcium 8.2 mg/dL (8.4-10.2) L 11/25/16 07:00 Urine Creatinine 295.3 mg/dL (0.1-20.0) H 11/24/16 21:57 Urine Sodium 18 mEq/L 11/24/16 21:57
[2016-11-25 12:28] LABS: ISTAT Base Excess -7; ISTAT HCO3 18.6; ISTAT PCO2 35.5 (35-45); ISTAT PH 7.327 (7.35-7.45); ISTAT PO2 96 (80-105); ISTAT SO2 97; ISTAT TCO2 20
--- NOTE | 2016-11-25 12:44 | Progress Note ---
Assessment and Plan Coronary artery disease with prior CABG Right and C findings: moderate to severe elevated left and right heart filling pressures; moderate to severe pulmonary HTN 3 vessel disease ESTRADA to LAD patent SVG x 2 occluded (Diag and OM) subtotal occlusion of proximal segment of SVG to RCA treated with a drug eluting stent EF 40-45% Acute renal failure Acute drop in H&H No hematoma or bruit right groin Ischemic Cardiomyopathy Hypertension on IV nitroglycerin Altered mental status - improving Chronic infarcts on CT but no acute process Recommendations: Continue IV hydration - appreciate renal input Change norvasc to nifedipine for better blood pressure control Wean NTG to off while maintaining SBP < 160 Will continue to monitor closely Recheck labs in am Subjective Date of service: 11/25/16 Principal diagnosis: CAD Interval history: Patient continues to complain of nausea but denies chest pain or abdominal pain Objective Vital Signs Temp Pulse Pulse Pulse Pulse Resp BP 11/25/16 12:05 11/25/16 10:52 71 157/79 11/25/16 09:28 11/25/16 09:15 11/25/16 08:00 98.5 F 71 12 157/78 11/25/16 07:45 67 11 L 162/76 11/25/16 07:30 70 13 146/72 11/25/16 07:16 69 12 161/84 11/25/16 07:00 75 19 161/84 11/25/16 06:45 69 9 L 161/84 11/25/16 06:30 70 11 L 166/80 11/25/16 06:16 71 10 L 165/79 11/25/16 06:00 70 12 169/83 11/25/16 05:45 71 10 L 177/86 11/25/16 05:30 69 13 170/84 11/25/16 05:15 71 12 156/78 11/25/16 05:00 71 13 165/58 11/25/16 04:45 99 F 70 10 L 168/60 11/25/16 04:30 71 10 L 166/69 11/25/16 04:15 99 F 72 11 L 169/80 11/25/16 04:00 99 F 70 69 16 167/78 11/25/16 03:45 99 F 70 12 165/74 11/25/16 03:30 71 12 149/74 06/16/17 03:15 99 F 70 10 L 166/82 11/25/16 03:00 70 9 L 168/75 11/25/16 02:45 99 F 71 12 168/75 11/25/16 02:30 68 11 L 155/71 11/25/16 02:15 98 F 68 11 L 155/74 11/25/16 02:00 98.1 F 69 10 L 162/78 11/25/16 01:45 70 12 143/73 11/25/16 01:30 67 8 L 148/75 11/25/16 01:15 66 11 L 153/74 11/25/16 01:00 67 11 L 153/70 11/25/16 00:46 67 8 L 163/76 11/25/16 00:30 68 9 L 163/76 11/25/16 00:16 69 8 L 163/76 11/25/16 00:00 98.4 F 70 68 8 L 163/76 11/24/16 23:56 69 150/68 11/24/16 23:46 69 9 L 150/68 11/24/16 23:30 70 8 L 150/68 11/24/16 23:16 74 12 150/68 11/24/16 23:00 72 11 L 150/68 11/24/16 22:46 69 10 L 160/73 11/24/16 22:30 71 9 L 160/73 11/24/16 22:16 70 10 L 160/73 11/24/16 22:00 69 74 14 160/73 11/24/16 21:46 68 11 L 141/68 11/24/16 21:43 11/24/16 21:30 69 13 141/68 11/24/16 21:16 70 12 141/68 11/24/16 21:00 67 9 L 141/68 11/24/16 20:50 67 13 11/24/16 20:00 97.8 F 69 18 11/24/16 18:43 97.5 F L 70 18 11/24/16 13:23 97.6 F 74 18 BP Pulse Ox 11/25/16 12:05 100 11/25/16 10:52 11/25/16 09:28 98 11/25/16 09:15 99 11/25/16 08:00 96 11/25/16 07:45 96 11/25/16 07:30 98 11/25/16 07:16 91 11/25/16 07:00 86 11/25/16 06:45 90 11/25/16 06:30 94 11/25/16 06:16 90 11/25/16 06:00 92 11/25/16 05:45 95 11/25/16 05:30 94 11/25/16 05:15 92 11/25/16 05:00 96 11/25/16 04:45 94 11/25/16 04:30 82 L 11/25/16 04:15 94 11/25/16 04:00 99 11/25/16 03:45 96 11/25/16 03:30 96 11/25/16 03:15 97 11/25/16 03:00 97 11/25/16 02:45 100 11/25/16 02:30 97 11/25/16 02:15 98 11/25/16 02:00 98 11/25/16 01:45 98 11/25/16 01:30 100 11/25/16 01:15 100 11/25/16 01:00 99 11/25/16 00:46 100 11/25/16 00:30 100 11/25/16 00:16 100 11/25/16 00:00 99 11/24/16 23:56 11/24/16 23:46 100 11/24/16 23:30 100 11/24/16 23:16 100 11/24/16 23:00 99 11/24/16 22:46 100 11/24/16 22:30 100 11/24/16 22:16 100 11/24/16 22:00 100 11/24/16 21:46 99 11/24/16 21:43 99 11/24/16 21:30 100 11/24/16 21:16 99 11/24/16 21:00 99 11/24/16 20:50 98 11/24/16 20:00 187/86 98 11/24/16 18:43 146/71 99 11/24/16 13:23 169/81 95 - Physical Examination General: No Apparent Distress HEENT: Positive: PERRL Neck: Positive: trachea midline Cardiac: Positive: Reg Rate and Rhythm Lungs: Positive: Normal Exam Abdomen: Positive: Soft Incision: Cardiac Cath Site Extremities: Absent: edema - Labs and Meds CBC 11/25/16 Range/Units 07:00 WBC 8.5 (4.5-11.0) K/mm3 RBC 3.30 L (3.65-5.03) M/mm3 Hgb 9.5 L (10.1-14.3) gm/dl Hct 29.0 L (30.3-42.9) % Plt Count 119 L (140-440) K/mm3 Lymph # 1.2 (1.2-5.4) K/mm3 Starr # 0.8 (0.0-0.8) K/mm3 Eos # 0.3 (0.0-0.4) K/mm3 Baso # 0.0 (0.0-0.1) K/mm3 Comprehensive Metabolic Panel 11/24/16 11/25/16 Range/Units 15:24 07:00 Sodium 139 141 (137-145) mmol/L Potassium 5.2 H 4.8 (3.6-5.0) mmol/L Chloride 105.2 110.1 H (98-107) mmol/L Carbon Dioxide 20 L 18 L (22-30) mmol/L BUN 37 H 38 H (7-17) mg/dL Creatinine 3.0 H 2.6 H (0.7-1.2) mg/dL Glucose 144 H 123 H (65-100) mg/dL Calcium 8.9 8.2 L (8.4-10.2) mg/dL
[2016-11-25] MEDS: NACL 0.45% 1000 ML 1,000 ML with SODIUM BICARBONATE 75 MEQ IV SCH (15:01)
[2016-11-25] MEDS: PROCARDIA XL PO SCH ×2 (15:01→22:50)
[2016-11-25] MEDS ORDERED: LASIX IV ONE (16:00)
--- NOTE | 2016-11-25 17:38 | Consultation ---
History of Present Illness Consult date: 11/25/16 Requesting physician: TRINITY WAITE Reason for consult: other (Acute Coronary Syndrome; PATRIA; Acute Encephalopathy; Obesity) History of present illness: PULMONARY/CCM CONSULT NOTE (Full dictation # [id number]) Please see dictated notes for full details Medications and Allergies Allergies Allergy/AdvReac Type Severity Reaction Status Date / Time Penicillins Allergy Rash Verified 11/22/16 08:57 Home Medications Medication Instructions Recorded Confirmed Last Taken Type Aspirin [Aspirin TAB] 325 mg PO QDAY 11/22/16 11/22/16 11/22/16 History Carvedilol [Coreg] 25 mg PO BID 11/22/16 11/22/16 11/21/16 History Clopidogrel Bisulfate [Plavix] 75 mg PO DAILY 11/22/16 11/22/16 11/22/16 History Furosemide [Lasix] 20 mg PO BID 11/22/16 11/22/16 11/21/16 History ISOSORBIDE MONOnitrate [Imdur ER] 30 mg PO DAILY 11/22/16 11/22/16 11/21/16 History Insulin Glargine [Lantus] 10 unit SUB-Q QHS 11/22/16 11/22/16 11/21/16 History Losartan/Hydrochlorothiazide 1 each PO DAILY 11/22/16 11/22/16 11/21/16 History [Losartan-Hctz 100-25 mg Tab] Rosuvastatin (Nf) [Crestor] 10 mg PO QHS 11/22/16 11/22/16 11/21/16 History amLODIPine [Norvasc] 5 mg PO DAILY 11/22/16 11/22/16 11/21/16 History cloNIDine [Catapres] 0.1 mg PO DAILY 11/22/16 11/22/16 6 Months Ago History Active Meds: Active Medications Aspirin (Ecotrin) 325 mg PO QDAY [facility] Last Admin: 11/25/16 10:52 Dose: 325 mg Atorvastatin Calcium (Lipitor) 40 mg PO QHS [facility] Last Admin: 11/24/16 23:56 Dose: 40 mg Carvedilol (Coreg) 25 mg PO BID [facility] Last Admin: 11/25/16 10:52 Dose: 25 mg Clonidine HCl (Catapres) 0.1 mg PO Q4H PRN PRN Reason: SBP >150 Last Admin: 11/22/16 14:32 Dose: 0.1 mg Clopidogrel Bisulfate (Plavix) 75 mg PO DAILY [facility] Last Admin: 11/25/16 10:52 Dose: 75 mg Famotidine (Pepcid) 20 mg PO QDAY [facility] Heparin Sodium (Porcine) (Heparin) 5,000 unit SUB-Q Q12HR [facility] Nitroglycerin/Dextrose (Tridil Drip 50mg/250ml) 50 mg in 250 mls @ 3 mls/hr IV TITR ANGELLA; 10 MCG/MIN PRN Reason: Protocol Last Admin: 11/25/16 07:00 Dose: 10 mcg/min, 3 mls/hr Sodium Bicarbonate 75 meq/ (Sodium Chloride) 1,075 mls @ 75 mls/hr IV DIRECT ANGELLA Last Admin: 11/25/16 15:01 Dose: 75 mls/hr Insulin Human Regular (Novolin R) 0 units SUB-Q ACHS ANGELL[facility] PRN Reason: Protocol Last Admin: 11/25/16 16:53 Dose: Not Given Isosorbide Mononitrate (Imdur) 30 mg PO DAILY [facility] Last Admin: 11/25/16 10:52 Dose: 30 mg Nifedipine (Procardia Xl) 30 mg PO Q12HR [facility] Last Admin: 11/25/16 15:01 Dose: 30 mg Ondansetron HCl (Zofran) 4 mg IV Q8H PRN PRN Reason: Nausea And Vomiting Last Admin: 11/25/16 05:15 Dose: 4 mg Physical Examination Vital signs: Vital Signs Temp Pulse Resp BP Pulse Ox 98.5 F 60 18 168/81 100 11/22/16 09:27 11/22/16 09:27 11/22/16 09:27 11/22/16 09:27 11/22/16 09:27 Results - Laboratory Findings CBC and BMP: 11/25/16 07:00 11/25/16 07:00 ABG POC ABG pH 7.327 (7.35-7.45) L 11/25/16 12:17 POC ABG pCO2 35.5 (35-45) 11/25/16 12:17 POC ABG pO2 96 (80-105) 11/25/16 12:17 POC ABG HCO3 18.6 11/25/16 12:17 POC ABG Total CO2 20 11/25/16 12:17 POC ABG O2 Sat 97 11/25/16 12:17 PT/INR, D-dimer PT 14.5 Sec. (12.2-14.9) 11/22/16 07:20 INR 1.14 (0.87-1.13) H 11/22/16 07:20 Abnormal lab findings: Abnormal Labs 11/22/16 11/22/16 11/22/16 07:20 07:20 07:20 WBC RBC 3.52 L Hgb Hct Plt Count [place] % (Auto) 11.5 H Seg Neutrophils % INR 1.14 H APTT Activated Clotting Time POC ABG pH POC ABG pO2 Potassium Chloride 108.0 H Carbon Dioxide BUN 25 H Creatinine 1.4 H Glucose POC Glucose Calcium AST ALT Total Creatine Kinase Albumin Urine Creatinine Urine Chloride Crossmatch 11/22/16 11/22/16 11/22/16 07:37 13:13 14:25 WBC RBC Hgb Hct Plt Count [place] % (Auto) Seg Neutrophils % INR APTT 37.7 H Activated Clotting Time 202 H 175 H POC ABG pH POC ABG pO2 Potassium Chloride Carbon Dioxide BUN Creatinine Glucose POC Glucose Calcium AST ALT Total Creatine Kinase Albumin Urine Creatinine Urine Chloride Crossmatch 11/23/16 11/23/16 11/23/16 06:49 06:49 11:07 WBC 4.1 L RBC 2.74 L 2.98 L Hgb 7.7 L 8.5 L Hct 23.8 L D 26.3 L Plt Count 135 L [place] % (Auto) 13.8 H 13.2 H Seg Neutrophils % INR APTT Activated Clotting Time POC ABG pH POC ABG pO2 Potassium Chloride Carbon Dioxide BUN 27 H Creatinine 1.8 H Glucose 137 H POC Glucose Calcium 8.0 L AST ALT Total Creatine Kinase 183 H Albumin Urine Creatinine Urine Chloride Crossmatch 11/23/16 11/23/16 11/23/16 12:45 17:32 21:24 WBC RBC Hgb Hct Plt Count [place] % (Auto) Seg Neutrophils % INR APTT Activated Clotting Time POC ABG pH POC ABG pO2 Potassium Chloride Carbon Dioxide BUN Creatinine Glucose POC Glucose 134 H 171 H 174 H Calcium AST ALT Total Creatine Kinase Albumin Urine Creatinine Urine Chloride Crossmatch 11/24/16 11/24/16 11/24/16 05:28 05:28 06:23 WBC RBC Hgb 8.6 L Hct 26.8 L Plt Count [place] % (Auto) Seg Neutrophils % INR APTT Activated Clotting Time POC ABG pH POC ABG pO2 Potassium 5.9 H D Chloride Carbon Dioxide 19 L BUN 33 H Creatinine 2.7 H Glucose 162 H POC Glucose 209 H Calcium AST ALT Total Creatine Kinase Albumin Urine Creatinine Urine Chloride Crossmatch 11/24/16 11/24/16 11/24/16 07:05 07:09 07:19 WBC RBC Hgb Hct Plt Count [place] % (Auto) Seg Neutrophils % INR APTT Activated Clotting Time POC ABG pH 7.264 L 7.285 L POC ABG pO2 33 L 64 L Potassium 5.8 H Chloride Carbon Dioxide 20 L BUN 33 H Creatinine 2.8 H Glucose 158 H POC Glucose Calcium AST 100 H ALT 118 H Total Creatine Kinase Albumin 3.5 L Urine Creatinine Urine Chloride Crossmatch 11/24/16 11/24/16 11/24/16 15:24 15:32 17:14 WBC RBC Hgb Hct Plt Count [place] % (Auto) Seg Neutrophils % INR APTT Activated Clotting Time POC ABG pH POC ABG pO2 Potassium 5.2 H Chloride Carbon Dioxide 20 L BUN 37 H Creatinine 3.0 H Glucose 144 H POC Glucose 195 H Calcium AST ALT Total Creatine Kinase Albumin Urine Creatinine Urine Chloride Crossmatch See Detail 11/24/16 11/24/16 11/25/16 21:57 23:39 05:30 WBC RBC Hgb Hct Plt Count [place] % (Auto) Seg Neutrophils % INR APTT Activated Clotting Time POC ABG pH POC ABG pO2 Potassium Chloride Carbon Dioxide BUN Creatinine Glucose POC Glucose 112 H 129 H Calcium AST ALT Total Creatine Kinase Albumin Urine Creatinine 295.3 H Urine Chloride 31.3 L Crossmatch 11/25/16 11/25/16 11/25/16 07:00 07:00 12:17 WBC RBC 3.30 L Hgb 9.5 L Hct 29.0 L Plt Count 119 L [place] % (Auto) 9.5 H Seg Neutrophils % 72.7 H INR APTT Activated Clotting Time POC ABG pH 7.327 L POC ABG pO2 Potassium Chloride 110.1 H Carbon Dioxide 18 L BUN 38 H Creatinine 2.6 H Glucose 123 H POC Glucose Calcium 8.2 L AST ALT Total Creatine Kinase Albumin Urine Creatinine Urine Chloride Crossmatch
[2016-11-25 22:30] LABS: ISTAT Base Excess -4; ISTAT HCO3 21.3; ISTAT PCO2 38.1 (35-45); ISTAT PH 7.356 (7.35-7.45); ISTAT PO2 67 (80-105); ISTAT SO2 92; ISTAT TCO2 22
[2016-11-25] MEDS: HEPARIN SUB-Q SCH (22:45)
[2016-11-26 01:25] LABS: Basophils % (Auto) 0.4 % (0.0-1.8); Eosinophils % (Auto) 1.9 % (0.0-4.3); Hematocrit 27.9 % (30.3-42.9); Hemoglobin 9.2 gm/dl (10.1-14.3); Mean Corpuscular HGB Conc 33 % (30-34); Mean Corpuscular Hemoglobin 28 pg (28-32); Mean Corpuscular Volume 86 fl (79-97); Platelet Count 119 K/mm3 (140-440); Red Blood Count 3.23 M/mm3 (3.65-5.03); Red Cell Distribution Width 13.4 % (13.2-15.2); White Blood Count 8.3 K/mm3 (4.5-11.0)
[2016-11-26] MEDS: NACL 0.45% 1000 ML 1,000 ML with SODIUM BICARBONATE 75 MEQ IV SCH ×2 (05:30→22:27)
[2016-11-26 06:48] LABS: BUN/Creatinine Ratio 16.4; Calcium 8.1 mg/dL (8.4-10.2); Chloride 105.2 mmol/L (98-107); Potassium 4.5 mmol/L (3.6-5.0)
--- NOTE | 2016-11-26 07:29 | Consultation ---
CONSULTING PHYSICIAN: Dr. Allred REASON FOR CONSULTATION: 1. Acute coronary syndrome. The patient on nitroglycerin drip. 2. Acute kidney injury. 3. Altered mental status. CHIEF COMPLAINT AND HISTORY OF PRESENT ILLNESS: The patient is a 56-year-old -Cypriot female with history of coronary artery disease, apparently had an outpatient scheduled cardiac catheterization with successful PCI of saphenous vein graft to the right coronary artery. Prior to the procedure her creatinine level was about 1.4. She did proceed to develop an acute kidney injury. Creatinine slowly evan to about 1.8 and then peaked around 2.7. She became lethargic as a result of the Tridil drip and the altered mental status ICU admission was requested for close observation. When I stopped by to see her, she was resting in bed. She was lethargic, but gave appropriate answers when aroused. She denied any acute chest pain. She remained on nitro drip at about 20 mcg per minute at the time I saw her. She denies fevers or chills. She denied nausea, but she had vomited earlier. She denied any cough or expectoration. When asked about tobacco use/abuse history, she had denied any history of tobacco use or abuse whatsoever that really is as much of the history of presentation as I have. PAST MEDICAL HISTORY: Chronic kidney disease, hyperlipidemia, hypertension, coronary artery disease. She had congestive heart failure. A 2D echo 2013, ejection fraction of 40 to 50%. She is also obese. PAST SURGICAL HISTORY: She has had coronary artery bypass graft and quadruple bypass, a cholecystectomy, hysterectomy and she tells me she has also had a valve replaced. MEDICATIONS: She was on at the time I stopped by to see her, according to the medication administration record, included the following: She was on aspirin 325 mg p.o. daily, Lipitor 40 mg p.o. at bedtime, Coreg 25 mg p.o. b.i.d., clonidine 0.1 mg p.o. q.4h. p.r.n. systolic blood pressure greater than 150, Plavix 75 mg p.o. daily, Pepcid 20 mg p.o. daily, heparin 5000 units subQ q.12, insulin in via sliding scale, Imdur 30 mg p.o. daily, nifedipine 30 mg p.o. q.12h., Tridil drip was going at 20 mcg per minute, Zofran 4 mg IV q. 8 hours p.r.n. nausea and vomiting. She was also on a sodium chloride with 75 mEq of bicarbonate going at 75 mL per hour. ALLERGIES: PENICILLIN. Nature of this allergy is unknown. DIET: Obese lady. She denies significant weight loss or gain preceding few weeks to months. FAMILY AND SOCIAL HISTORY: Apparently lives in the community. She denied alcohol, tobacco or illicit drug use or abuse. REVIEW OF SYSTEMS: Difficult to obtain secondary to her mental status. She denies any acute chest pain. She has had some nausea and vomiting. She denies any gross hematochezia or melena since she has been here, no hematemesis. No hemoptysis. Complete review of systems obtained as best as I could. Pertinent positives and/or negatives as in body of history above, otherwise noncontributory. PHYSICAL EXAMINATION: VITAL SIGNS: At presentation, she was afebrile, temperature 98.5, pulse of 62, respiratory rate of 18, blood pressure 168/81, oxygen sats were 100%, inspired oxygen concentration was not recorded. She has remained afebrile. HEAD, EYES, EARS, NOSE AND THROAT: Pupils are equal, round believe about 3 mm reactive to light. Extraocular movements appeared intact. Grossly, there were no palpable lymph nodes in the supraclavicular or submandibular lymph node chains. Oropharynx is a Mallampati #3 oropharynx. No significant posterior oropharyngeal erythema. LUNGS: Auscultation of both lung valdez, diminished bilateral breath sounds, slightly prolonged expiratory phase, faint inspiratory crackles in the bases posteriorly. No wheezing. HEART: Sounds 1 and 2 are heard at the time of my evaluation, regular rate and rhythm. ABDOMEN: Soft, full, bowel sounds are positive, did not appear tender. EXTREMITIES: Without overt digital clubbing, cyanosis or pedal edema. NEUROLOGIC: She was lethargic, but moved all extremities. LABORATORY DATA: From my review are as follows: Admission labs, white cell count was 5900 on admission with a hemoglobin of 10.3, hematocrit of 30.7, platelets 161. INR was 1.14. Serum sodium was 143, potassium 4.9, chloride 108, bicarbonate 25, BUN was 25, creatinine was 1.4, glucose was 82. Post cath her creatinine appears to have peaked at 3.0 yesterday, today it is 2.6. Arterial blood gas was done it showed a pH of 7.33, pCO2 of 36 and pO2 of 96 with a base excess of -7. Microbiology: No microbiology studies, CT scan of the head was done yesterday. I have reviewed the radiologist's interpretation, multiple chronic infarcts, but no acute intracranial process. Chest x-ray was done, I am pulling up the image and I will be reviewing the image. I have reviewed the radiologist's interpretation. It mentions mild cardiomegaly and pulmonary venous hypertension without overt pulmonary edema and I do agree with that. Median sternotomy wires are also evident. No gross pneumothorax, no gross bony fractures. ASSESSMENT AND PLAN: We have a middle-aged lady in with a history of coronary artery disease in with an acute coronary syndrome, status post percutaneous coronary intervention and I believe stenting to the saphenous vein graft to the RCA, but also with an acute kidney injury, which is likely driving her metabolic acidosis and partially responsible for altered mental status at least. Respiratory cross though I do feel there may be an element of obstructive sleep apnea ____ this lady, which will avoid over sedation. Oxygen will be titrated to keep sats greater than or equal to about 92 to 94%. Aspiration precautions will be maintained. I will deploy bilevel positive air pressure ventilation therapy at bedtime, mainly to try and improve ventilatory effort to compensate for the metabolic acidosis, but also to treat in occult sleep apnea and I have recommended, although I will need to reiterate that when she is more alert that she will benefit from Sleep Clinic evaluation. From a cardiovascular standpoint, she remains on the Tridil drip and oral agents have been introduced. We will wean those Nik, Cardiology directions. She is status post catheterization on disease modifying medications. I will defer to Cardiology otherwise while following her clinically. From a renal standpoint, electrolytes are being followed and will be corrected as necessary. Inputs and outputs are also being followed. She is making urine, nonoliguric at this point, but not a whole lot of urine. Nephrology is on the case. I will defer to them. Hopefully, she has peaked and is beginning to show improvement, we may have some post-recovery diuresis down the road. From an infectious disease standpoint, no signs and symptoms of overwhelming sepsis. I doubt that her altered mental status is due to an occult sepsis picture; however, I will get a lactic acid level and a CRP level and if those are significantly elevated. Empiric antibiotics will be given after are cultures drawn. Otherwise, I will follow her clinically. From a [employer] standpoint, the neuro imaging is unremarkable we will watch her in the unit and watch her mental status. The exam is grossly nonfocal though. We will follow her clinically. From a general and hospital healthcare maintenance standpoint, she is going to be on GI and deep venous thrombosis prophylaxis. Flu and pneumonia vaccination will be per protocol. From a gastrointestinal standpoint, oral nutrition will be the feeding modality of choice and we will maintain aspiration precautions. Thank you very much for the consult Dr. Allred. We will follow along and make further recommendations as picture progresses/becomes clearer. At this time, I have spent about 35 minutes of critical care time without overlap and excluding any procedural time that may be necessary. She is critically ill on life-sustaining interventions including the Tridil drip and will be needing noninvasive ventilation and she is at risk for further deterioration including . JOB# [id number] YIFAN/TERE
[2016-11-26] MEDS: PROCARDIA XL PO SCH ×2 (09:59→22:00)
[2016-11-26] MEDS: HEPARIN SUB-Q SCH ×2 (09:59→22:28)
[2016-11-26] MEDS: ECOTRIN PO SCH (09:59)
[2016-11-26] MEDS: IMDUR PO SCH (09:59)
[2016-11-26] MEDS: PLAVIX PO SCH (09:59)
[2016-11-26] MEDS: COREG PO SCH ×2 (09:59→22:00)
[2016-11-26] MEDS: PEPCID PO SCH (09:59)
--- NOTE | 2016-11-26 10:22 | Progress Note ---
Assessment and Plan - Patient Problems (1) PATRIA (acute kidney injury) Current Visit: Yes Status: Acute (2) CKD (chronic kidney disease) Current Visit: Yes Status: Acute Qualifiers: Chronic kidney disease stage: C (3) CAD (coronary artery disease) of artery bypass graft Current Visit: Yes Status: Acute Qualifiers: [place] vs. transplanted heart: N Associated angina: A Plan to address problem: STABLE CV,,,IVFs,,, PER RENAL',,,MONITOR FOR CHF,,,F\U LABS (4) Anemia Current Visit: Yes Status: Acute Qualifiers: Anemia type: A Iron deficiency anemia type: I Vitamin B12 deficiency anemia type: V Folate deficiency anemia type: F Bone marrow failure anemia type: B Hemolytic anemia type: H Other causes of anemia: O Chronic kidney disease stage: C (5) Encephalopathy Current Visit: Yes Status: Acute Subjective Date of service: 11/26/16 Principal diagnosis: CAD Interval history: NO CV C\O,,,CONFUSED Objective Vital Signs Temp Pulse Pulse Pulse Pulse Pulse Pulse 11/26/16 09:15 71 11/26/16 09:00 71 11/26/16 08:45 72 11/26/16 08:30 71 11/26/16 08:15 72 11/26/16 08:00 98.7 F 70 11/26/16 07:45 70 11/26/16 07:30 71 11/26/16 07:15 69 11/26/16 07:00 70 11/26/16 06:45 68 11/26/16 06:30 71 11/26/16 06:15 70 11/26/16 06:00 72 11/26/16 05:51 71 11/26/16 05:45 71 11/26/16 05:30 69 11/26/16 05:15 71 11/26/16 05:00 71 11/26/16 04:45 73 11/26/16 04:30 72 11/26/16 04:15 72 11/26/16 04:00 99.8 F H 74 11/26/16 03:45 72 11/26/16 03:35 76 76 76 76 76 11/26/16 03:30 72 11/26/16 03:15 72 11/26/16 03:00 74 11/26/16 02:45 72 06/17/17 02:30 72 11/26/16 02:15 72 11/26/16 02:00 73 11/26/16 01:45 72 11/26/16 01:30 73 11/26/16 01:15 73 11/26/16 01:00 73 11/26/16 00:45 73 11/26/16 00:30 74 11/26/16 00:15 73 11/26/16 00:00 99.1 F 74 11/25/16 23:52 103 H 103 H 103 H 103 H 103 H 11/25/16 23:50 73 11/25/16 23:45 73 11/25/16 23:39 74 11/25/16 23:30 74 11/25/16 23:15 71 11/25/16 23:11 71 11/25/16 23:00 71 11/25/16 22:45 69 11/25/16 22:30 69 11/25/16 22:25 85 11/25/16 22:16 71 11/25/16 22:00 69 11/25/16 21:45 71 11/25/16 21:30 71 11/25/16 21:15 70 11/25/16 21:00 70 11/25/16 20:46 70 11/25/16 20:30 70 11/25/16 20:15 68 11/25/16 20:08 11/25/16 20:00 69 11/25/16 19:57 99 F 11/25/16 19:45 68 11/25/16 19:30 69 11/25/16 19:15 69 11/25/16 19:00 69 11/25/16 18:45 69 11/25/16 18:30 69 17 18:15 67 11/25/16 18:00 66 11/25/16 17:45 67 17 17:30 68 1617 17:15 68 17 17:00 66 11/25/16 16:45 68 11/25/16 16:30 68 17 16:15 69 11/25/16 16:00 98.0 F 67 11/25/16 15:45 67 1617 15:30 70 1617 15:15 67 17 15:00 68 11/25/16 14:45 69 11/25/16 14:30 69 11/25/16 14:15 67 11/25/16 14:00 69 11/25/16 13:45 69 11/25/16 13:30 67 11/25/16 13:15 67 11/25/16 13:00 70 11/25/16 12:45 67 11/25/16 12:30 69 11/25/16 12:16 47 L 11/25/16 12:05 11/25/16 12:00 98.5 F 68 11/25/16 11:45 70 11/25/16 11:30 69 11/25/16 11:15 71 11/25/16 11:00 70 11/25/16 10:52 71 11/25/16 10:45 71 11/25/16 10:30 72 Resp BP Pulse Ox 11/26/16 09:15 11 L 129/63 93 11/26/16 09:00 12 135/62 90 11/26/16 08:45 14 130/56 93 11/26/16 08:30 14 130/58 93 11/26/16 08:15 13 129/57 88 11/26/16 08:00 13 132/58 93 11/26/16 07:45 14 138/57 91 11/26/16 07:30 14 127/59 92 11/26/16 07:15 11 L 123/53 92 11/26/16 07:00 11 L 130/55 95 11/26/16 06:45 15 125/53 89 11/26/16 06:30 15 132/54 93 11/26/16 06:15 11 L 131/55 94 11/26/16 06:00 13 120/50 94 11/26/16 05:51 11/26/16 05:45 15 120/49 90 11/26/16 05:30 14 117/45 89 11/26/16 05:15 14 138/56 92 11/26/16 05:00 13 132/58 90 11/26/16 04:45 13 141/62 92 11/26/16 04:30 11 L 134/60 91 11/26/16 04:15 13 142/59 90 11/26/16 04:00 13 140/58 89 11/26/16 03:45 15 138/61 96 11/26/16 03:35 98 06/17/17 03:30 11 L 143/64 91 11/26/16 03:15 12 139/63 94 11/26/16 03:00 11 L 138/61 95 11/26/16 02:45 13 138/65 95 11/26/16 02:30 12 126/62 97 11/26/16 02:15 12 143/63 97 11/26/16 02:00 12 140/66 96 11/26/16 01:45 12 149/66 94 11/26/16 01:30 13 149/70 92 11/26/16 01:15 14 143/68 93 11/26/16 01:00 14 134/60 92 11/26/16 00:45 11 L 134/60 95 11/26/16 00:30 11 L 130/57 94 11/26/16 00:15 11 L 124/57 91 11/26/16 00:00 11 L 125/57 92 11/25/16 23:52 50 L 11/25/16 23:50 14 128/60 95 11/25/16 23:45 11 L 128/59 94 11/25/16 23:39 11 L 128/60 96 11/25/16 23:30 14 128/60 94 11/25/16 23:15 12 129/56 93 11/25/16 23:11 12 133/55 97 11/25/16 23:00 11 L 133/55 93 11/25/16 22:45 12 131/57 90 11/25/16 22:30 13 124/52 89 11/25/16 22:25 145/78 11/25/16 22:16 13 136/66 95 11/25/16 22:00 15 135/56 95 11/25/16 21:45 10 L 122/59 91 11/25/16 21:30 12 129/59 94 11/25/16 21:15 12 128/58 92 11/25/16 21:00 11 L 129/60 94 11/25/16 20:46 14 135/64 93 11/25/16 20:30 13 135/64 90 11/25/16 20:15 11 L 138/65 91 11/25/16 20:08 92 11/25/16 20:00 13 134/62 84 11/25/16 19:57 11/25/16 19:45 9 L 142/64 93 11/25/16 19:30 10 L 138/65 91 11/25/16 19:15 10 L 159/73 93 11/25/16 19:00 10 L 164/80 93 11/25/16 18:45 10 L 174/84 92 11/25/16 18:30 10 L 165/82 91 11/25/16 18:15 13 144/68 93 11/25/16 18:00 13 157/70 94 11/25/16 17:45 9 L 151/73 94 11/25/16 17:30 10 L 153/75 94 11/25/16 17:15 18 150/69 93 11/25/16 17:00 11 L 152/71 94 11/25/16 16:45 11 L 151/73 94 11/25/16 16:30 11 L 156/73 96 11/25/16 16:15 11 L 157/72 96 11/25/16 16:00 12 153/74 97 11/25/16 15:45 16 159/74 97 11/25/16 15:30 12 162/79 92 11/25/16 15:15 10 L 156/78 99 11/25/16 15:00 10 L 168/82 94 11/25/16 14:45 11 L 165/75 95 11/25/16 14:30 11 L 155/77 95 11/25/16 14:15 12 157/70 96 11/25/16 14:00 13 151/75 92 11/25/16 13:45 11 L 155/77 94 11/25/16 13:30 14 160/76 92 11/25/16 13:15 12 158/78 94 11/25/16 13:00 13 125/63 93 11/25/16 12:45 12 156/77 95 11/25/16 12:30 11 L 148/74 89 11/25/16 12:16 14 141/59 96 11/25/16 12:05 100 11/25/16 12:00 13 158/81 97 11/25/16 11:45 11 L 166/81 97 11/25/16 11:30 14 160/72 98 11/25/16 11:15 12 163/83 98 11/25/16 11:00 10 L 160/78 98 11/25/16 10:52 157/79 06/16/17 10:45 12 161/80 92 11/25/16 10:30 13 157/79 96 - Physical Examination General: No Apparent Distress, Other (CONFUSED) HEENT: Positive: PERRL Neck: Positive: trachea midline Cardiac: Positive: Reg Rate and Rhythm Lungs: Positive: clear to auscultation Abdomen: Positive: Soft Incision: Cardiac Cath Site Extremities: Present: normal. Absent: edema - Labs and Meds CBC 11/26/16 Range/Units 00:58 WBC 8.3 (4.5-11.0) K/mm3 RBC 3.23 L (3.65-5.03) M/mm3 Hgb 9.2 L (10.1-14.3) gm/dl Hct 27.9 L (30.3-42.9) % Plt Count 119 L (140-440) K/mm3 Lymph # 0.8 L (1.2-5.4) K/mm3 [place] # 0.6 (0.0-0.8) K/mm3 Eos # 0.2 (0.0-0.4) K/mm3 Baso # 0.0 (0.0-0.1) K/mm3 Comprehensive Metabolic Panel 11/26/16 Range/Units 06:11 Sodium 139 (137-145) mmol/L Potassium 4.5 (3.6-5.0) mmol/L Chloride 105.2 (98-107) mmol/L Carbon Dioxide 21 L (22-30) mmol/L BUN 41 H (7-17) mg/dL Creatinine 2.5 H (0.7-1.2) mg/dL Glucose 151 H (65-100) mg/dL Calcium 8.1 L (8.4-10.2) mg/dL
--- NOTE | 2016-11-26 14:16 | Progress Note ---
Assessment and Plan Impression * Acute kidney injury. Most likely contrast nephropathy * Coronary artery disease. Status post angiogram and angioplasty. Patient also has a history of coronary artery bypass surgery * Uncontrolled Hypertension * Cardiomyopathy with an ejection fraction of 40-45% * Anemia Recommendations * Patient's renal function appears to be stabilizing. * Her baseline creatinine however is approximately 1.4 * Patient is currently nonoliguric * Her urine shows 2+ dipstick protein and fractional excretion of sodium is 0.13 % * Continue gentle hydration. Acidosis is improving with bicarbonate drip * Her hyperkalemia has been corrected * Avoid nephrotoxins * Monitor patient's renal function, fluid status and electrolytes closely Subjective Date of service: 11/26/16 Principal diagnosis: CAD Interval history: Patient is comfortable today. Denies any shortness of breath. No nausea vomiting or diarrhea Objective - Vital Signs Vital signs: Vital Signs - 12hr 11/26/16 11/26/16 11/26/16 02:15 02:30 02:45 Temperature Pulse Rate 72 72 72 Pulse Rate [ From Monitor] Pulse Rate [ Left Dorsalis Pedis] Pulse Rate [ Left Radial] Pulse Rate [ Right Dorsalis Pedis] Pulse Rate [ Right Radial] Respiratory 12 12 13 Rate Blood Pressure 143/63 126/62 138/65 O2 Sat by Pulse 97 97 95 Oximetry 11/26/16 11/26/16 11/26/16 03:00 03:15 03:30 Temperature Pulse Rate 74 72 72 Pulse Rate [ From Monitor] Pulse Rate [ Left Dorsalis Pedis] Pulse Rate [ Left Radial] Pulse Rate [ Right Dorsalis Pedis] Pulse Rate [ Right Radial] Respiratory 11 L 12 11 L Rate Blood Pressure 138/61 139/63 143/64 O2 Sat by Pulse 95 94 91 Oximetry 11/26/16 11/26/16 11/26/16 03:35 03:45 04:00 Temperature 99.8 F H Pulse Rate 72 74 Pulse Rate [ 76 From Monitor] Pulse Rate [ 76 Left Dorsalis Pedis] Pulse Rate [ 76 Left Radial] Pulse Rate [ 76 Right Dorsalis Pedis] Pulse Rate [ 76 Right Radial] Respiratory 15 13 Rate Blood Pressure 138/61 140/58 O2 Sat by Pulse 98 96 89 Oximetry 11/26/16 11/26/16 11/26/16 04:15 04:30 04:45 Temperature Pulse Rate 72 72 73 Pulse Rate [ From Monitor] Pulse Rate [ Left Dorsalis Pedis] Pulse Rate [ Left Radial] Pulse Rate [ Right Dorsalis Pedis] Pulse Rate [ Right Radial] Respiratory 13 11 L 13 Rate Blood Pressure 142/59 134/60 141/62 O2 Sat by Pulse 90 91 92 Oximetry 11/26/16 11/26/16 11/26/16 05:00 05:15 05:30 Temperature Pulse Rate 71 71 69 Pulse Rate [ From Monitor] Pulse Rate [ Left Dorsalis Pedis] Pulse Rate [ Left Radial] Pulse Rate [ Right Dorsalis Pedis] Pulse Rate [ Right Radial] Respiratory 13 14 14 Rate Blood Pressure 132/58 138/56 117/45 O2 Sat by Pulse 90 92 89 Oximetry 11/26/16 11/26/16 11/26/16 05:45 05:51 06:00 Temperature Pulse Rate 71 71 72 Pulse Rate [ From Monitor] Pulse Rate [ Left Dorsalis Pedis] Pulse Rate [ Left Radial] Pulse Rate [ Right Dorsalis Pedis] Pulse Rate [ Right Radial] Respiratory 15 13 Rate Blood Pressure 120/49 120/50 O2 Sat by Pulse 90 94 Oximetry 11/26/16 11/26/16 11/26/16 06:15 06:30 06:45 Temperature Pulse Rate 70 71 68 Pulse Rate [ From Monitor] Pulse Rate [ Left Dorsalis Pedis] Pulse Rate [ Left Radial] Pulse Rate [ Right Dorsalis Pedis] Pulse Rate [ Right Radial] Respiratory 11 L 15 15 Rate Blood Pressure 131/55 132/54 125/53 O2 Sat by Pulse 94 93 89 Oximetry 11/26/16 11/26/16 11/26/16 07:00 07:15 07:30 Temperature Pulse Rate 70 69 71 Pulse Rate [ From Monitor] Pulse Rate [ Left Dorsalis Pedis] Pulse Rate [ Left Radial] Pulse Rate [ Right Dorsalis Pedis] Pulse Rate [ Right Radial] Respiratory 11 L 11 L 14 Rate Blood Pressure 130/55 123/53 127/59 O2 Sat by Pulse 95 92 92 Oximetry 11/26/16 11/26/16 11/26/16 07:45 08:00 08:15 Temperature 98.7 F Pulse Rate 70 70 72 Pulse Rate [ From Monitor] Pulse Rate [ Left Dorsalis Pedis] Pulse Rate [ Left Radial] Pulse Rate [ Right Dorsalis Pedis] Pulse Rate [ Right Radial] Respiratory 14 13 13 Rate Blood Pressure 138/57 132/58 129/57 O2 Sat by Pulse 91 93 88 Oximetry 11/26/16 11/26/16 11/26/16 08:30 08:45 09:00 Temperature Pulse Rate 71 72 71 Pulse Rate [ From Monitor] Pulse Rate [ Left Dorsalis Pedis] Pulse Rate [ Left Radial] Pulse Rate [ Right Dorsalis Pedis] Pulse Rate [ Right Radial] Respiratory 14 14 12 Rate Blood Pressure 130/58 130/56 135/62 O2 Sat by Pulse 93 93 90 Oximetry 11/26/16 11/26/16 11/26/16 09:15 09:30 09:46 Temperature Pulse Rate 71 71 70 Pulse Rate [ From Monitor] Pulse Rate [ Left Dorsalis Pedis] Pulse Rate [ Left Radial] Pulse Rate [ Right Dorsalis Pedis] Pulse Rate [ Right Radial] Respiratory 11 L 11 L 23 Rate Blood Pressure 129/63 120/66 130/65 O2 Sat by Pulse 93 93 94 Oximetry 11/26/16 11/26/16 11/26/16 10:00 10:15 10:30 Temperature Pulse Rate 71 71 69 Pulse Rate [ From Monitor] Pulse Rate [ Left Dorsalis Pedis] Pulse Rate [ Left Radial] Pulse Rate [ Right Dorsalis Pedis] Pulse Rate [ Right Radial] Respiratory 12 16 12 Rate Blood Pressure 132/60 136/67 147/66 O2 Sat by Pulse 89 95 92 Oximetry 11/26/16 11/26/16 11/26/16 10:45 11:00 11:15 Temperature Pulse Rate 68 71 69 Pulse Rate [ From Monitor] Pulse Rate [ Left Dorsalis Pedis] Pulse Rate [ Left Radial] Pulse Rate [ Right Dorsalis Pedis] Pulse Rate [ Right Radial] Respiratory 11 L 12 13 Rate Blood Pressure 136/65 143/66 137/56 O2 Sat by Pulse 93 95 92 Oximetry 11/26/16 11/26/16 11/26/16 11:30 11:43 11:45 Temperature Pulse Rate 67 65 Pulse Rate [ From Monitor] Pulse Rate [ Left Dorsalis Pedis] Pulse Rate [ Left Radial] Pulse Rate [ Right Dorsalis Pedis] Pulse Rate [ Right Radial] Respiratory 13 11 L Rate Blood Pressure 133/60 133/60 O2 Sat by Pulse 93 98 92 Oximetry 11/26/16 11/26/16 11/26/16 12:00 12:15 12:30 Temperature 98.8 F Pulse Rate 66 68 66 Pulse Rate [ From Monitor] Pulse Rate [ Left Dorsalis Pedis] Pulse Rate [ Left Radial] Pulse Rate [ Right Dorsalis Pedis] Pulse Rate [ Right Radial] Respiratory 12 17 14 Rate Blood Pressure 124/57 117/58 128/55 O2 Sat by Pulse 90 82 L 94 Oximetry 11/26/16 11/26/16 11/26/16 12:45 13:00 13:15 Temperature Pulse Rate 66 64 67 Pulse Rate [ From Monitor] Pulse Rate [ Left Dorsalis Pedis] Pulse Rate [ Left Radial] Pulse Rate [ Right Dorsalis Pedis] Pulse Rate [ Right Radial] Respiratory 11 L 12 15 Rate Blood Pressure 125/55 120/54 129/60 O2 Sat by Pulse 94 95 91 Oximetry 11/26/16 11/26/16 11/26/16 13:30 13:45 14:00 Temperature Pulse Rate 66 67 68 Pulse Rate [ From Monitor] Pulse Rate [ Left Dorsalis Pedis] Pulse Rate [ Left Radial] Pulse Rate [ Right Dorsalis Pedis] Pulse Rate [ Right Radial] Respiratory 17 19 Rate Blood Pressure 122/56 120/52 119/58 O2 Sat by Pulse 95 94 91 Oximetry - General Appearance General appearance: well-developed, well-nourished, appears stated age EENT: PERRL, mucous membranes moist Neck: no JVD, no thyromegaly, no carotid bruit, supple Respiratory: Present: Clear to Ascultation Cardiology: regular, normal heart rate Gastrointestinal: normal, normoactive bowel sounds Integumentary: no rash, other (no edema) - Lab 11/26/16 00:58 11/26/16 06:11 Most recent lab results Calcium 8.1 mg/dL (8.4-10.2) L 11/26/16 06:11 Urine Creatinine 295.3 mg/dL (0.1-20.0) H 11/24/16 21:57 Urine Sodium 18 mEq/L 11/24/16 21:57
--- NOTE | 2016-11-26 15:59 | Progress Note ---
Assessment and Plan - Patient Problems (1) Acute encephalopathy Current Visit: Yes Status: Acute Plan to address problem: - ventilation improved and can not blame on CO2 narcosis - suspect may be depression related element and may benefit from psychiatric evaluation - CT brain negative for acute process (2) PATRIA (acute kidney injury) Current Visit: Yes Status: Acute Plan to address problem: - non oliguric - element of contrast induced nephropathy - nephrology evaluation ongoing - follow I's & O's and electrolytes (3) Anemia Current Visit: Yes Status: Acute Qualifiers: Anemia type: A Iron deficiency anemia type: I Vitamin B12 deficiency anemia type: V Folate deficiency anemia type: F Bone marrow failure anemia type: B Hemolytic anemia type: H Other causes of anemia: O Chronic kidney disease stage: C Plan to address problem: - likely of chronic disease - iron studies - no acute indication for transfusion (4) CAD (coronary artery disease) of artery bypass graft Current Visit: Yes Status: Acute Qualifiers: [place] vs. transplanted heart: N Associated angina: A Plan to address problem: - s/p PCI with stenting - weaning of nitroglycerine drip - clinically chest pain free - medication adjustments per nutrition aides teacher (5) Discharge planning issues Current Visit: Yes Status: Acute Plan to address problem: - will keep her in ICU overnight as weaned of IV nitro drip and to ensure BIPAP tolerance / avoid CO2 narcosis and further decompensation ...re-evaluate in am & prn Subjective Date of service: 11/26/16 Principal diagnosis: CAD s/p PCI and Stenting; Obesity; Acute Encephaloopathy Interval history: Seen and examined at bedside; 24 hour events reviewed; nursing and respiratory care staff consulted; no adverse overnight events reported to me; resting peacefully in bed; was not placed on BIPAP overnight (due to nausea per RT); son in room; she is stil lethargic; denies acute chest pains or increased SOB Objective Vital Signs - 12hr 11/26/16 11/26/16 11/26/16 04:00 04:15 04:30 Temperature 99.8 F H Pulse Rate 74 72 72 Respiratory 13 13 11 L Rate Blood Pressure 140/58 142/59 134/60 O2 Sat by Pulse 89 90 91 Oximetry 11/26/16 11/26/16 11/26/16 04:45 05:00 05:15 Temperature Pulse Rate 73 71 71 Respiratory 13 13 14 Rate Blood Pressure 141/62 132/58 138/56 O2 Sat by Pulse 92 90 92 Oximetry 11/26/16 11/26/16 11/26/16 05:30 05:45 05:51 Temperature Pulse Rate 69 71 71 Respiratory 14 15 Rate Blood Pressure 117/45 120/49 O2 Sat by Pulse 89 90 Oximetry 11/26/16 11/26/16 11/26/16 06:00 06:15 06:30 Temperature Pulse Rate 72 70 71 Respiratory 13 11 L 15 Rate Blood Pressure 120/50 131/55 132/54 O2 Sat by Pulse 94 94 93 Oximetry 11/26/16 11/26/16 11/26/16 06:45 07:00 07:15 Temperature Pulse Rate 68 70 69 Respiratory 15 11 L 11 L Rate Blood Pressure 125/53 130/55 123/53 O2 Sat by Pulse 89 95 92 Oximetry 11/26/16 11/26/16 11/26/16 07:30 07:45 08:00 Temperature 98.7 F Pulse Rate 71 70 70 Respiratory 14 14 13 Rate Blood Pressure 127/59 138/57 132/58 O2 Sat by Pulse 92 91 93 Oximetry 11/26/16 11/26/16 11/26/16 08:15 08:30 08:45 Temperature Pulse Rate 72 71 72 Respiratory 13 14 14 Rate Blood Pressure 129/57 130/58 130/56 O2 Sat by Pulse 88 93 93 Oximetry 11/26/16 11/26/16 11/26/16 09:00 09:15 09:30 Temperature Pulse Rate 71 71 71 Respiratory 12 11 L 11 L Rate Blood Pressure 135/62 129/63 120/66 O2 Sat by Pulse 90 93 93 Oximetry 11/26/16 11/26/16 11/26/16 09:46 10:00 10:15 Temperature Pulse Rate 70 71 71 Respiratory 23 12 16 Rate Blood Pressure 130/65 132/60 136/67 O2 Sat by Pulse 94 89 95 Oximetry 11/26/16 11/26/16 11/26/16 10:30 10:45 11:00 Temperature Pulse Rate 69 68 71 Respiratory 12 11 L 12 Rate Blood Pressure 147/66 136/65 143/66 O2 Sat by Pulse 92 93 95 Oximetry 11/26/16 11/26/16 11/26/16 11:15 11:30 11:43 Temperature Pulse Rate 69 67 Respiratory 13 13 Rate Blood Pressure 137/56 133/60 O2 Sat by Pulse 92 93 98 Oximetry 11/26/16 11/26/16 11/26/16 11:45 12:00 12:15 Temperature 98.8 F Pulse Rate 65 66 68 Respiratory 11 L 12 17 Rate Blood Pressure 133/60 124/57 117/58 O2 Sat by Pulse 92 90 82 L Oximetry 11/26/16 11/26/16 11/26/16 12:30 12:45 13:00 Temperature Pulse Rate 66 66 64 Respiratory 14 11 L 12 Rate Blood Pressure 128/55 125/55 120/54 O2 Sat by Pulse 94 94 95 Oximetry 11/26/16 11/26/16 11/26/16 13:15 13:30 13:45 Temperature Pulse Rate 67 66 67 Respiratory 15 17 Rate Blood Pressure 129/60 122/56 120/52 O2 Sat by Pulse 91 95 94 Oximetry 11/26/16 11/26/16 11/26/16 14:00 14:15 14:30 Temperature Pulse Rate 68 64 64 Respiratory 19 12 14 Rate Blood Pressure 119/58 119/62 123/59 O2 Sat by Pulse 91 93 94 Oximetry 11/26/16 11/26/16 11/26/16 14:45 15:00 15:15 Temperature Pulse Rate 65 63 61 Respiratory 21 22 19 Rate Blood Pressure 122/59 121/58 126/56 O2 Sat by Pulse 93 93 93 Oximetry 11/26/16 15:30 Temperature Pulse Rate 64 Respiratory 18 Rate Blood Pressure 125/56 O2 Sat by Pulse 93 Oximetry Constitutional: no acute distress, lethargic Eyes: non-icteric ENT: oropharynx moist Neck: supple, no lymphadenopathy Effort: mildly labored Ascultation: Bilateral: diminished breath sounds, rales (scant in posterior bases) Cardiovascular: regular rate and rhythm Gastrointestinal: normoactive bowel sounds, soft, non-tender, non-distended Integumentary: normal Extremities: no cyanosis, no edema, pulses normal, no ischemia or petechiae Neurologic: non-focal exam, pupils equal and round, motor strength normal and, other Psychiatric: other (flat affect) CBC and BMP: 11/26/16 00:58 11/27/16 03:45 ABG, PT/INR, D-dimer: ABG POC ABG pH 7.356 (7.35-7.45) 11/25/16 22:20 POC ABG pCO2 38.1 (35-45) 11/25/16 22:20 POC ABG pO2 67 (80-105) L 11/25/16 22:20 POC ABG HCO3 21.3 11/25/16 22:20 POC ABG Total CO2 22 11/25/16 22:20 POC ABG O2 Sat 92 11/25/16 22:20 PT/INR, D-dimer PT 14.5 Sec. (12.2-14.9) 11/22/16 07:20 INR 1.14 (0.87-1.13) H 11/22/16 07:20 Abnormal lab findings: Abnormal Labs 11/22/16 11/22/16 11/22/16 07:20 07:20 07:20 WBC RBC 3.52 L Hgb Hct Plt Count Lymph % (Auto) [place] % (Auto) 11.5 H Lymph # Seg Neutrophils % INR 1.14 H APTT Activated Clotting Time POC ABG pH POC ABG pO2 Potassium Chloride 108.0 H Carbon Dioxide BUN 25 H Creatinine 1.4 H Glucose POC Glucose Calcium AST ALT Total Creatine Kinase Albumin Urine Creatinine Urine Chloride Crossmatch 11/22/16 11/22/16 11/22/16 07:37 13:13 14:25 WBC RBC Hgb Hct Plt Count Lymph % (Auto) [place] % (Auto) Lymph # Seg Neutrophils % INR APTT 37.7 H Activated Clotting Time 202 H 175 H POC ABG pH POC ABG pO2 Potassium Chloride Carbon Dioxide BUN Creatinine Glucose POC Glucose Calcium AST ALT Total Creatine Kinase Albumin Urine Creatinine Urine Chloride Crossmatch 11/23/16 11/23/16 11/23/16 06:49 06:49 11:07 WBC 4.1 L RBC 2.74 L 2.98 L Hgb 7.7 L 8.5 L Hct 23.8 L D 26.3 L Plt Count 135 L Lymph % (Auto) [place] % (Auto) 13.8 H 13.2 H Lymph # Seg Neutrophils % INR APTT Activated Clotting Time POC ABG pH POC ABG pO2 Potassium Chloride Carbon Dioxide BUN 27 H Creatinine 1.8 H Glucose 137 H POC Glucose Calcium 8.0 L AST ALT Total Creatine Kinase 183 H Albumin Urine Creatinine Urine Chloride Crossmatch 11/23/16 11/23/16 11/23/16 12:45 17:32 21:24 WBC RBC Hgb Hct Plt Count Lymph % (Auto) [place] % (Auto) Lymph # Seg Neutrophils % INR APTT Activated Clotting Time POC ABG pH POC ABG pO2 Potassium Chloride Carbon Dioxide BUN Creatinine Glucose POC Glucose 134 H 171 H 174 H Calcium AST ALT Total Creatine Kinase Albumin Urine Creatinine Urine Chloride Crossmatch 11/24/16 11/24/16 11/24/16 05:28 05:28 06:23 WBC RBC Hgb 8.6 L Hct 26.8 L Plt Count Lymph % (Auto) [place] % (Auto) Lymph # Seg Neutrophils % INR APTT Activated Clotting Time POC ABG pH POC ABG pO2 Potassium 5.9 H D Chloride Carbon Dioxide 19 L BUN 33 H Creatinine 2.7 H Glucose 162 H POC Glucose 209 H Calcium AST ALT Total Creatine Kinase Albumin Urine Creatinine Urine Chloride Crossmatch 11/24/16 11/24/16 11/24/16 07:05 07:09 07:19 WBC RBC Hgb Hct Plt Count Lymph % (Auto) [place] % (Auto) Lymph # Seg Neutrophils % INR APTT Activated Clotting Time POC ABG pH 7.264 L 7.285 L POC ABG pO2 33 L 64 L Potassium 5.8 H Chloride Carbon Dioxide 20 L BUN 33 H Creatinine 2.8 H Glucose 158 H POC Glucose Calcium AST 100 H ALT 118 H Total Creatine Kinase Albumin 3.5 L Urine Creatinine Urine Chloride Crossmatch 11/24/16 11/24/16 11/24/16 08:50 11:45 15:24 WBC RBC Hgb Hct Plt Count Lymph % (Auto) [place] % (Auto) Lymph # Seg Neutrophils % INR APTT Activated Clotting Time POC ABG pH POC ABG pO2 Potassium 5.2 H Chloride Carbon Dioxide 20 L BUN 37 H Creatinine 3.0 H Glucose 144 H POC Glucose 193 H 169 H Calcium AST ALT Total Creatine Kinase Albumin Urine Creatinine Urine Chloride Crossmatch 11/24/16 11/24/16 11/24/16 15:32 17:14 21:57 WBC RBC Hgb Hct Plt Count Lymph % (Auto) [place] % (Auto) Lymph # Seg Neutrophils % INR APTT Activated Clotting Time POC ABG pH POC ABG pO2 Potassium Chloride Carbon Dioxide BUN Creatinine Glucose POC Glucose 195 H Calcium AST ALT Total Creatine Kinase Albumin Urine Creatinine 295.3 H Urine Chloride 31.3 L Crossmatch See Detail 11/24/16 11/25/16 11/25/16 23:39 05:30 07:00 WBC RBC 3.30 L Hgb 9.5 L Hct 29.0 L Plt Count 119 L Lymph % (Auto) [place] % (Auto) 9.5 H Lymph # Seg Neutrophils % 72.7 H INR APTT Activated Clotting Time POC ABG pH POC ABG pO2 Potassium Chloride Carbon Dioxide BUN Creatinine Glucose POC Glucose 112 H 129 H Calcium AST ALT Total Creatine Kinase Albumin Urine Creatinine Urine Chloride Crossmatch 11/25/16 11/25/16 11/25/16 07:00 08:40 11:24 WBC RBC Hgb Hct Plt Count Lymph % (Auto) [place] % (Auto) Lymph # Seg Neutrophils % INR APTT Activated Clotting Time POC ABG pH POC ABG pO2 Potassium Chloride 110.1 H Carbon Dioxide 18 L BUN 38 H Creatinine 2.6 H Glucose 123 H POC Glucose 129 H 142 H Calcium 8.2 L AST ALT Total Creatine Kinase Albumin Urine Creatinine Urine Chloride Crossmatch 11/25/16 11/25/16 11/25/16 12:17 16:16 21:48 WBC RBC Hgb Hct Plt Count Lymph % (Auto) [place] % (Auto) Lymph # Seg Neutrophils % INR APTT Activated Clotting Time POC ABG pH 7.327 L POC ABG pO2 Potassium Chloride Carbon Dioxide BUN Creatinine Glucose POC Glucose 151 H 149 H Calcium AST ALT Total Creatine Kinase Albumin Urine Creatinine Urine Chloride Crossmatch 11/25/16 11/26/16 11/26/16 22:20 00:58 06:11 WBC RBC 3.23 L Hgb 9.2 L Hct 27.9 L Plt Count 119 L Lymph % (Auto) 10.2 L [place] % (Auto) 7.6 H Lymph # 0.8 L Seg Neutrophils % 79.9 H INR APTT Activated Clotting Time POC ABG pH POC ABG pO2 67 L Potassium Chloride Carbon Dioxide 21 L BUN 41 H Creatinine 2.5 H Glucose 151 H POC Glucose Calcium 8.1 L AST ALT Total Creatine Kinase Albumin Urine Creatinine Urine Chloride Crossmatch 11/26/16 11/26/16 07:40 11:28 WBC RBC Hgb Hct Plt Count Lymph % (Auto) [place] % (Auto) Lymph # Seg Neutrophils % INR APTT Activated Clotting Time POC ABG pH POC ABG pO2 Potassium Chloride Carbon Dioxide BUN Creatinine Glucose POC Glucose 144 H 168 H Calcium AST ALT Total Creatine Kinase Albumin Urine Creatinine Urine Chloride Crossmatch Chest x-ray: image reviewed
[2016-11-27 04:45] LABS: BUN/Creatinine Ratio 16.42; Calcium 8.1 mg/dL (8.4-10.2); Chloride 102.6 mmol/L (98-107); Potassium 4.3 mmol/L (3.6-5.0)
[2016-11-27] MEDS ORDERED: SODIUM BICARBONATE 75 MEQ in NACL 0.45% 1000 ML 1,000 ML IV ONE (07:00)
[2016-11-27] MEDS: ECOTRIN PO SCH (09:37)
[2016-11-27] MEDS: IMDUR PO SCH (09:37)
[2016-11-27] MEDS: PLAVIX PO SCH (09:37)
[2016-11-27] MEDS: HEPARIN SUB-Q SCH ×2 (09:38→22:42)
[2016-11-27] MEDS: PEPCID PO SCH (09:38)
[2016-11-27] MEDS: PROCARDIA XL PO SCH ×2 (09:38→22:41)
[2016-11-27] MEDS: COREG PO SCH ×2 (09:38→22:42)
--- NOTE | 2016-11-27 12:45 | Progress Note ---
Assessment and Plan Impression * Acute kidney injury. Most likely contrast nephropathy * Coronary artery disease. Status post angiogram and angioplasty. Patient also has a history of coronary artery bypass surgery * Uncontrolled Hypertension * Cardiomyopathy with an ejection fraction of 40-45% * Anemia Recommendations * Serum creatinine noted to be slightly higher today * Continue gentle hydration * Her baseline creatinine however is approximately 1.4 * Patient is currently nonoliguric * Her urine shows 2+ dipstick protein and fractional excretion of sodium is 0.13 % * Her hyperkalemia has been corrected * Her acidosis has been corrected as well * Avoid nephrotoxins * Monitor patient's renal function, fluid status and electrolytes closely Subjective Date of service: 11/27/16 Principal diagnosis: CAD Interval history: Patient is comfortable. Denies any shortness of breath. No nausea or vomiting Objective - Vital Signs Vital signs: Vital Signs - 12hr 11/27/16 11/27/16 11/27/16 00:46 01:00 01:16 Temperature Pulse Rate 64 65 63 Pulse Rate [ From Monitor] Respiratory 11 L 13 12 Rate Blood Pressure 124/58 129/58 129/58 O2 Sat by Pulse 100 98 100 Oximetry 11/27/16 11/27/16 11/27/16 01:30 01:46 02:00 Temperature Pulse Rate 64 66 63 Pulse Rate [ From Monitor] Respiratory 9 L 13 11 L Rate Blood Pressure 129/58 129/58 125/59 O2 Sat by Pulse 100 100 98 Oximetry 11/27/16 11/27/16 11/27/16 02:16 02:30 02:46 Temperature Pulse Rate 63 64 64 Pulse Rate [ From Monitor] Respiratory 10 L 10 L 12 Rate Blood Pressure 125/59 125/59 125/59 O2 Sat by Pulse 100 100 100 Oximetry 11/27/16 11/27/16 11/27/16 03:00 03:16 03:30 Temperature Pulse Rate 64 62 63 Pulse Rate [ From Monitor] Respiratory 10 L 11 L 12 Rate Blood Pressure 126/62 126/62 126/62 O2 Sat by Pulse 100 100 100 Oximetry 11/27/16 11/27/16 11/27/16 03:46 04:00 04:16 Temperature 99.0 F Pulse Rate 65 65 64 Pulse Rate [ 64 From Monitor] Respiratory 12 14 13 Rate Blood Pressure 126/62 128/64 128/64 O2 Sat by Pulse 99 98 100 Oximetry 0611/27/16 11/27/16 04:30 04:46 05:00 Temperature Pulse Rate 65 66 65 Pulse Rate [ From Monitor] Respiratory 14 12 13 Rate Blood Pressure 128/64 128/64 128/59 O2 Sat by Pulse 99 99 98 Oximetry 11/27/16 11/27/16 11/27/16 05:16 05:30 05:46 Temperature Pulse Rate 67 67 69 Pulse Rate [ From Monitor] Respiratory 15 12 15 Rate Blood Pressure 128/59 128/59 128/59 O2 Sat by Pulse 100 100 87 Oximetry 11/27/16 11/27/16 11/27/16 06:00 06:16 06:30 Temperature Pulse Rate 69 69 68 Pulse Rate [ From Monitor] Respiratory 15 15 14 Rate Blood Pressure 121/63 121/63 121/63 O2 Sat by Pulse 95 96 97 Oximetry 11/27/16 11/27/16 11/27/16 06:46 07:00 07:16 Temperature Pulse Rate 68 67 66 Pulse Rate [ From Monitor] Respiratory 14 13 12 Rate Blood Pressure 121/63 131/59 131/59 O2 Sat by Pulse 97 91 97 Oximetry 11/27/16 11/27/16 11/27/16 07:30 07:46 08:00 Temperature 99 F Pulse Rate 66 66 65 Pulse Rate [ From Monitor] Respiratory 14 12 14 Rate Blood Pressure 131/59 131/59 129/57 O2 Sat by Pulse 93 97 94 Oximetry 11/27/16 11/27/16 11/27/16 08:16 08:30 08:46 Temperature Pulse Rate 67 66 67 Pulse Rate [ From Monitor] Respiratory 18 16 16 Rate Blood Pressure 129/57 129/57 129/57 O2 Sat by Pulse 95 93 87 Oximetry 11/27/16 11/27/16 11/27/16 09:00 09:16 09:30 Temperature Pulse Rate 65 65 65 Pulse Rate [ From Monitor] Respiratory 14 10 L 14 Rate Blood Pressure 134/64 134/64 134/64 O2 Sat by Pulse 77 L 96 97 Oximetry 11/27/16 11/27/16 11/27/16 09:37 09:38 09:46 Temperature Pulse Rate 65 65 68 Pulse Rate [ From Monitor] Respiratory 18 Rate Blood Pressure 134/64 134/64 134/64 O2 Sat by Pulse 97 Oximetry 11/27/16 11/27/16 11/27/16 10:00 10:16 10:30 Temperature Pulse Rate 65 64 65 Pulse Rate [ 65 From Monitor] Respiratory 20 12 17 Rate Blood Pressure 134/58 134/58 134/58 O2 Sat by Pulse 94 97 100 Oximetry 11/27/16 11/27/16 11/27/16 10:46 11:00 11:16 Temperature Pulse Rate 65 64 67 Pulse Rate [ From Monitor] Respiratory 14 15 13 Rate Blood Pressure 134/58 120/51 120/51 O2 Sat by Pulse 100 95 97 Oximetry 11/27/16 11/27/16 11/27/16 11:30 11:46 12:00 Temperature 99 F Pulse Rate 65 65 63 Pulse Rate [ 64 From Monitor] Respiratory 14 13 14 Rate Blood Pressure 120/51 120/51 117/50 O2 Sat by Pulse 97 95 91 Oximetry 11/27/16 12:16 Temperature Pulse Rate 66 Pulse Rate [ From Monitor] Respiratory 11 L Rate Blood Pressure 117/50 O2 Sat by Pulse 95 Oximetry - General Appearance General appearance: well-developed, well-nourished, appears stated age EENT: PERRL, mucous membranes moist Neck: no JVD, no thyromegaly, no carotid bruit, supple Respiratory: Present: Decreased Breath Sounds (at the bases) Cardiology: regular, normal heart rate, S1S2, no murmurs Gastrointestinal: normal, normoactive bowel sounds Integumentary: no rash, other (no edema) - Lab 11/26/16 00:58 11/27/16 03:45 Most recent lab results Calcium 8.1 mg/dL (8.4-10.2) L 11/27/16 03:45 Urine Creatinine 295.3 mg/dL (0.1-20.0) H 11/24/16 21:57 Urine Sodium 18 mEq/L 11/24/16 21:57
--- NOTE | 2016-11-27 14:15 | Progress Note ---
Assessment and Plan - Patient Problems (1) PATRIA (acute kidney injury) Current Visit: Yes Status: Acute (2) CKD (chronic kidney disease) Current Visit: Yes Status: Acute Qualifiers: Chronic kidney disease stage: C (3) CAD (coronary artery disease) of artery bypass graft Current Visit: Yes Status: Acute Qualifiers: [place] vs. transplanted heart: N Associated angina: A Plan to address problem: STABLE CV,,,IVFs,,, PER RENAL',,,MONITOR FOR CHF,,,F\U LABS (4) Anemia Current Visit: Yes Status: Acute Qualifiers: Anemia type: A Iron deficiency anemia type: I Vitamin B12 deficiency anemia type: V Folate deficiency anemia type: F Bone marrow failure anemia type: B Hemolytic anemia type: H Other causes of anemia: O Chronic kidney disease stage: C (5) Encephalopathy Current Visit: Yes Status: Acute Subjective Date of service: 11/27/16 Principal diagnosis: CAD Interval history: NO CV C\O,,,CONFUSED Objective Vital Signs Temp Pulse Pulse Resp BP Pulse Ox 11/27/16 14:00 65 17 115/47 92 11/27/16 13:46 65 14 120/54 95 11/27/16 13:30 64 16 120/54 96 11/27/16 13:16 65 16 120/54 95 11/27/16 13:00 64 15 120/54 92 11/27/16 12:46 65 12 117/50 95 11/27/16 12:30 67 19 117/50 96 11/27/16 12:16 66 11 L 117/50 95 11/27/16 12:00 99 F 63 64 14 117/50 91 11/27/16 11:46 65 13 120/51 95 11/27/16 11:30 65 14 120/51 97 11/27/16 11:16 67 13 120/51 97 11/27/16 11:00 64 15 120/51 95 11/27/16 10:46 65 14 134/58 100 11/27/16 10:30 65 17 134/58 100 11/27/16 10:16 64 12 134/58 97 11/27/16 10:00 65 65 20 134/58 95 11/27/16 09:46 68 18 134/64 97 11/27/16 09:38 65 134/64 11/27/16 09:37 65 134/64 06/18/17 09:30 65 14 134/64 97 18/17 09:16 65 10 L 134/64 96 11/27/16 09:00 65 14 134/64 77 L 17 08:46 67 16 129/57 87 18/17 08:30 66 16 129/57 93 1817 08:16 67 18 129/57 95 1817 08:00 99 F 65 14 129/57 94 17 07:46 66 12 131/59 97 1817 07:30 66 14 131/59 93 17 07:16 66 12 131/59 97 11/27/17 07:00 67 13 131/59 91 11/27/16 06:46 68 14 121/63 97 11/27/16 06:30 68 14 121/63 97 11/27/16 06:16 69 15 121/63 96 11/27/17 06:00 69 15 121/63 95 11/27/16 05:46 69 15 128/59 87 17 05:30 67 12 128/59 100 18/17 05:16 67 15 128/59 100 11/27/17 05:00 65 13 128/59 98 18/17 04:46 66 12 128/64 99 18/17 04:30 65 14 128/64 99 11/27/ 04:16 64 13 128/64 100 17 04:00 99.0 F 65 64 14 128/64 98 18/17 03:46 65 12 126/62 99 18/17 03:30 63 12 126/62 100 1817 03:16 62 11 L 126/62 100 18/17 03:00 64 10 L 126/62 100 18/17 02:46 64 12 125/59 100 18/17 02:30 64 10 L 125/59 100 18/17 02:16 63 10 L 125/59 100 18/17 02:00 63 11 L 125/59 98 18/17 01:46 66 13 129/58 100 18/17 01:30 64 9 L 129/58 100 18/17 01:16 63 12 129/58 100 18/17 01:00 65 13 129/58 98 06/18/17 00:46 64 11 L 124/58 100 11/27/16 00:30 63 9 L 124/58 100 11/27/16 00:16 63 11 L 124/58 100 11/27/16 00:00 98.5 F 65 66 12 124/58 96 11/26/16 23:58 65 11 L 119/56 100 11/26/16 23:46 63 11 L 119/56 100 11/26/16 23:30 64 11 L 119/56 100 11/26/16 23:16 66 13 119/56 100 11/26/16 23:00 64 11 L 119/56 95 11/26/16 22:46 64 9 L 109/52 100 11/26/16 22:40 66 21 109/52 100 11/26/16 22:30 65 13 109/52 94 11/26/16 22:16 62 16 97/40 98 11/26/16 22:00 64 11 L 97/40 96 11/26/16 21:46 64 14 85/38 97 11/26/16 21:30 62 11 L 85/38 95 11/26/16 21:16 62 13 85/38 98 11/26/16 21:00 64 11 L 126/60 11/26/16 20:46 64 11 L 126/60 99 11/26/16 20:30 64 10 L 126/60 99 11/26/16 20:16 63 18 126/60 97 11/26/16 20:00 97.8 F 61 64 12 126/60 98 11/26/16 19:46 66 24 112/49 93 11/26/16 19:39 98 11/26/16 19:30 62 11 L 132/57 94 11/26/16 19:15 61 13 130/57 96 11/26/16 19:00 65 15 125/62 94 11/26/16 18:45 61 13 119/56 93 11/26/16 18:30 62 20 121/56 94 11/26/16 18:15 64 15 121/55 95 11/26/16 18:00 62 18 125/57 91 11/26/16 17:45 63 13 132/61 92 11/26/16 17:30 66 14 126/62 92 11/26/16 17:15 65 12 121/60 94 11/26/16 17:00 69 16 122/61 93 11/26/16 16:45 63 13 124/62 98 11/26/16 16:30 66 13 122/59 94 11/26/16 16:15 65 24 123/57 92 11/26/16 16:00 98.8 F 63 63 18 120/55 94 11/26/16 15:45 64 13 122/56 94 11/26/16 15:30 64 18 125/56 93 11/26/16 15:15 61 19 126/56 93 11/26/16 15:00 63 22 121/58 93 11/26/16 14:45 65 21 122/59 93 11/26/16 14:30 64 14 123/59 94 11/26/16 14:15 64 12 119/62 93 - Physical Examination General: No Apparent Distress, Other (CONFUSED) HEENT: Positive: PERRL Neck: Positive: trachea midline Cardiac: Positive: Reg Rate and Rhythm Lungs: Positive: clear to auscultation Neuro: Positive: Grossly Intact Abdomen: Positive: Soft Incision: Cardiac Cath Site Extremities: Present: normal. Absent: edema - Labs and Meds Comprehensive Metabolic Panel 11/27/16 Range/Units 03:45 Sodium 138 (137-145) mmol/L Potassium 4.3 (3.6-5.0) mmol/L Chloride 102.6 (98-107) mmol/L Carbon Dioxide 25 (22-30) mmol/L BUN 46 H (7-17) mg/dL Creatinine 2.8 H (0.7-1.2) mg/dL Glucose 147 H (65-100) mg/dL Calcium 8.1 L (8.4-10.2) mg/dL
--- NOTE | 2016-11-27 14:26 | Progress Note ---
Assessment and Plan (1) Acute encephalopathy Current Visit: Yes Status: Acute Plan to address problem: - ventilation improved and can not blame on CO2 narcosis - suspect may be depression related element and may benefit from psychiatric evaluation - CT brain negative for acute process - continue qhs BIPAP for likely SDB (2) PATRIA (acute kidney injury) Current Visit: Yes Status: Acute Plan to address problem: - non oliguric - element of contrast induced nephropathy - nephrology evaluation ongoing - follow I's & O's and electrolytes (3) Anemia Current Visit: Yes Status: Acute Qualifiers: Anemia type: A Iron deficiency anemia type: I Vitamin B12 deficiency anemia type: V Folate deficiency anemia type: F Bone marrow failure anemia type: B Hemolytic anemia type: H Other causes of anemia: O Chronic kidney disease stage: C Plan to address problem: - likely of chronic disease - iron studies - no acute indication for transfusion (4) CAD (coronary artery disease) of artery bypass graft Current Visit: Yes Status: Acute Qualifiers: [place] vs. 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 per skin washer (5) Discharge planning issues Current Visit: Yes Status: Acute Plan to address problem: - OK to transfer to telemetry floor ...re-evaluate in am & prn Subjective Date of service: 11/27/16 Principal diagnosis: CAD; Acute Encephalopathy Interval history: Seen and examined at bedside; 24 hour events reviewed; nursing and respiratory care staff consulted; no adverse overnight events reported to me; resting in bed ; used BIPAP overnight; states that she feels better; denies acute chest pains or increased SOB Objective Vital Signs - 12hr 11/27/16 11/27/16 11/27/16 02:30 02:46 03:00 Temperature Pulse Rate 64 64 64 Pulse Rate [ From Monitor] Respiratory 10 L 12 10 L Rate Blood Pressure 125/59 125/59 126/62 O2 Sat by Pulse 100 100 100 Oximetry 11/27/16 11/27/16 11/27/16 03:16 03:30 03:46 Temperature Pulse Rate 62 63 65 Pulse Rate [ From Monitor] Respiratory 11 L 12 12 Rate Blood Pressure 126/62 126/62 126/62 O2 Sat by Pulse 100 100 99 Oximetry 11/27/16 11/27/16 11/27/16 04:00 04:16 04:30 Temperature 99.0 F Pulse Rate 65 64 65 Pulse Rate [ 64 From Monitor] Respiratory 14 13 14 Rate Blood Pressure 128/64 128/64 128/64 O2 Sat by Pulse 98 100 99 Oximetry 11/27/16 11/27/16 11/27/16 04:46 05:00 05:16 Temperature Pulse Rate 66 65 67 Pulse Rate [ From Monitor] Respiratory 12 13 15 Rate Blood Pressure 128/64 128/59 128/59 O2 Sat by Pulse 99 98 100 Oximetry 11/27/16 11/27/16 11/27/16 05:30 05:46 06:00 Temperature Pulse Rate 67 69 69 Pulse Rate [ From Monitor] Respiratory 12 15 15 Rate Blood Pressure 128/59 128/59 121/63 O2 Sat by Pulse 100 87 95 Oximetry 11/27/16 11/27/16 11/27/16 06:16 06:30 06:46 Temperature Pulse Rate 69 68 68 Pulse Rate [ From Monitor] Respiratory 15 14 14 Rate Blood Pressure 121/63 121/63 121/63 O2 Sat by Pulse 96 97 97 Oximetry 11/27/16 11/27/16 11/27/16 07:00 07:16 07:30 Temperature Pulse Rate 67 66 66 Pulse Rate [ From Monitor] Respiratory 13 12 14 Rate Blood Pressure 131/59 131/59 131/59 O2 Sat by Pulse 91 97 93 Oximetry 11/27/16 11/27/16 11/27/16 07:46 08:00 08:16 Temperature 99 F Pulse Rate 66 65 67 Pulse Rate [ From Monitor] Respiratory 12 14 18 Rate Blood Pressure 131/59 129/57 129/57 O2 Sat by Pulse 97 94 95 Oximetry 11/27/16 11/27/16 11/27/16 08:30 08:46 09:00 Temperature Pulse Rate 66 67 65 Pulse Rate [ From Monitor] Respiratory 16 16 14 Rate Blood Pressure 129/57 129/57 134/64 O2 Sat by Pulse 93 87 77 L Oximetry 11/27/16 11/27/16 11/27/16 09:16 09:30 09:37 Temperature Pulse Rate 65 65 65 Pulse Rate [ From Monitor] Respiratory 10 L 14 Rate Blood Pressure 134/64 134/64 134/64 O2 Sat by Pulse 96 97 Oximetry 11/27/16 11/27/16 11/27/16 09:38 09:46 10:00 Temperature Pulse Rate 65 68 65 Pulse Rate [ 65 From Monitor] Respiratory 18 20 Rate Blood Pressure 134/64 134/64 134/58 O2 Sat by Pulse 97 95 Oximetry 11/27/16 11/27/16 11/27/16 10:16 10:30 10:46 Temperature Pulse Rate 64 65 65 Pulse Rate [ From Monitor] Respiratory 12 17 14 Rate Blood Pressure 134/58 134/58 134/58 O2 Sat by Pulse 97 100 100 Oximetry 11/27/16 11/27/16 11/27/16 11:00 11:16 11:30 Temperature Pulse Rate 64 67 65 Pulse Rate [ From Monitor] Respiratory 15 13 14 Rate Blood Pressure 120/51 120/51 120/51 O2 Sat by Pulse 95 97 97 Oximetry 11/27/16 11/27/16 11/27/16 11:46 12:00 12:16 Temperature 99 F Pulse Rate 65 63 66 Pulse Rate [ 64 From Monitor] Respiratory 13 14 11 L Rate Blood Pressure 120/51 117/50 117/50 O2 Sat by Pulse 95 91 95 Oximetry 11/27/16 11/27/16 11/27/16 12:30 12:46 13:00 Temperature Pulse Rate 67 65 64 Pulse Rate [ From Monitor] Respiratory 19 12 15 Rate Blood Pressure 117/50 117/50 120/54 O2 Sat by Pulse 96 95 92 Oximetry 11/27/16 11/27/16 11/27/16 13:16 13:30 13:46 Temperature Pulse Rate 65 64 65 Pulse Rate [ From Monitor] Respiratory 16 16 14 Rate Blood Pressure 120/54 120/54 120/54 O2 Sat by Pulse 95 96 95 Oximetry 11/27/16 14:00 Temperature Pulse Rate 65 Pulse Rate [ From Monitor] Respiratory 17 Rate Blood Pressure 115/47 O2 Sat by Pulse 92 Oximetry Constitutional: no acute distress, other (somnolent) Eyes: non-icteric ENT: oropharynx moist Neck: supple, no lymphadenopathy Effort: normal Ascultation: Bilateral: clear, diminished breath sounds Cardiovascular: regular rate and rhythm Gastrointestinal: normoactive bowel sounds, soft, non-tender, non-distended Integumentary: normal Extremities: no cyanosis, no edema, pulses normal, no ischemia or petechiae Neurologic: normal mental status, non-focal exam, pupils equal and round, motor strength normal and Psychiatric: depressed CBC and BMP: 11/26/16 00:58 11/27/16 03:45 ABG, PT/INR, D-dimer: ABG POC ABG pH 7.356 (7.35-7.45) 11/25/16 22:20 POC ABG pCO2 38.1 (35-45) 11/25/16 22:20 POC ABG pO2 67 (80-105) L 11/25/16 22:20 POC ABG HCO3 21.3 11/25/16 22:20 POC ABG Total CO2 22 11/25/16 22:20 POC ABG O2 Sat 92 11/25/16 22:20 PT/INR, D-dimer PT 14.5 Sec. (12.2-14.9) 11/22/16 07:20 INR 1.14 (0.87-1.13) H 11/22/16 07:20 Abnormal lab findings: Abnormal Labs 11/22/16 11/22/16 11/22/16 07:20 07:20 07:20 WBC RBC 3.52 L Hgb Hct Plt Count Lymph % (Auto) Dunn % (Auto) 11.5 H Lymph # Seg Neutrophils % INR 1.14 H APTT Activated Clotting Time POC ABG pH POC ABG pO2 Potassium Chloride 108.0 H Carbon Dioxide BUN 25 H Creatinine 1.4 H Glucose POC Glucose Calcium AST ALT Total Creatine Kinase Albumin Urine Creatinine Urine Chloride Crossmatch 11/22/16 11/22/16 11/22/16 07:37 13:13 14:25 WBC RBC Hgb Hct Plt Count Lymph % (Auto) Dunn % (Auto) Lymph # Seg Neutrophils % INR APTT 37.7 H Activated Clotting Time 202 H 175 H POC ABG pH POC ABG pO2 Potassium Chloride Carbon Dioxide BUN Creatinine Glucose POC Glucose Calcium AST ALT Total Creatine Kinase Albumin Urine Creatinine Urine Chloride Crossmatch 11/23/16 11/23/16 11/23/16 06:49 06:49 11:07 WBC 4.1 L RBC 2.74 L 2.98 L Hgb 7.7 L 8.5 L Hct 23.8 L D 26.3 L Plt Count 135 L Lymph % (Auto) Dunn % (Auto) 13.8 H 13.2 H Lymph # Seg Neutrophils % INR APTT Activated Clotting Time POC ABG pH POC ABG pO2 Potassium Chloride Carbon Dioxide BUN 27 H Creatinine 1.8 H Glucose 137 H POC Glucose Calcium 8.0 L AST ALT Total Creatine Kinase 183 H Albumin Urine Creatinine Urine Chloride Crossmatch 11/23/16 11/23/16 11/23/16 12:45 17:32 21:24 WBC RBC Hgb Hct Plt Count Lymph % (Auto) Dunn % (Auto) Lymph # Seg Neutrophils % INR APTT Activated Clotting Time POC ABG pH POC ABG pO2 Potassium Chloride Carbon Dioxide BUN Creatinine Glucose POC Glucose 134 H 171 H 174 H Calcium AST ALT Total Creatine Kinase Albumin Urine Creatinine Urine Chloride Crossmatch 11/24/16 11/24/16 11/24/16 05:28 05:28 06:23 WBC RBC Hgb 8.6 L Hct 26.8 L Plt Count Lymph % (Auto) Dunn % (Auto) Lymph # Seg Neutrophils % INR APTT Activated Clotting Time POC ABG pH POC ABG pO2 Potassium 5.9 H D Chloride Carbon Dioxide 19 L BUN 33 H Creatinine 2.7 H Glucose 162 H POC Glucose 209 H Calcium AST ALT Total Creatine Kinase Albumin Urine Creatinine Urine Chloride Crossmatch 11/24/16 11/24/16 11/24/16 07:05 07:09 07:19 WBC RBC Hgb Hct Plt Count Lymph % (Auto) Dunn % (Auto) Lymph # Seg Neutrophils % INR APTT Activated Clotting Time POC ABG pH 7.264 L 7.285 L POC ABG pO2 33 L 64 L Potassium 5.8 H Chloride Carbon Dioxide 20 L BUN 33 H Creatinine 2.8 H Glucose 158 H POC Glucose Calcium AST 100 H ALT 118 H Total Creatine Kinase Albumin 3.5 L Urine Creatinine Urine Chloride Crossmatch 11/24/16 11/24/16 11/24/16 08:50 11:45 15:24 WBC RBC Hgb Hct Plt Count Lymph % (Auto) Dunn % (Auto) Lymph # Seg Neutrophils % INR APTT Activated Clotting Time POC ABG pH POC ABG pO2 Potassium 5.2 H Chloride Carbon Dioxide 20 L BUN 37 H Creatinine 3.0 H Glucose 144 H POC Glucose 193 H 169 H Calcium AST ALT Total Creatine Kinase Albumin Urine Creatinine Urine Chloride Crossmatch 11/24/16 11/24/16 11/24/16 15:32 17:14 21:57 WBC RBC Hgb Hct Plt Count Lymph % (Auto) Dunn % (Auto) Lymph # Seg Neutrophils % INR APTT Activated Clotting Time POC ABG pH POC ABG pO2 Potassium Chloride Carbon Dioxide BUN Creatinine Glucose POC Glucose 195 H Calcium AST ALT Total Creatine Kinase Albumin Urine Creatinine 295.3 H Urine Chloride 31.3 L Crossmatch See Detail 11/24/16 11/25/16 11/25/16 23:39 05:30 07:00 WBC RBC 3.30 L Hgb 9.5 L Hct 29.0 L Plt Count 119 L Lymph % (Auto) Dunn % (Auto) 9.5 H Lymph # Seg Neutrophils % 72.7 H INR APTT Activated Clotting Time POC ABG pH POC ABG pO2 Potassium Chloride Carbon Dioxide BUN Creatinine Glucose POC Glucose 112 H 129 H Calcium AST ALT Total Creatine Kinase Albumin Urine Creatinine Urine Chloride Crossmatch 11/25/16 11/25/16 11/25/16 07:00 08:40 11:24 WBC RBC Hgb Hct Plt Count Lymph % (Auto) Dunn % (Auto) Lymph # Seg Neutrophils % INR APTT Activated Clotting Time POC ABG pH POC ABG pO2 Potassium Chloride 110.1 H Carbon Dioxide 18 L BUN 38 H Creatinine 2.6 H Glucose 123 H POC Glucose 129 H 142 H Calcium 8.2 L AST ALT Total Creatine Kinase Albumin Urine Creatinine Urine Chloride Crossmatch 11/25/16 11/25/16 11/25/16 12:17 16:16 21:48 WBC RBC Hgb Hct Plt Count Lymph % (Auto) Dunn % (Auto) Lymph # Seg Neutrophils % INR APTT Activated Clotting Time POC ABG pH 7.327 L POC ABG pO2 Potassium Chloride Carbon Dioxide BUN Creatinine Glucose POC Glucose 151 H 149 H Calcium AST ALT Total Creatine Kinase Albumin Urine Creatinine Urine Chloride Crossmatch 11/25/16 11/26/16 11/26/16 22:20 00:58 06:11 WBC RBC 3.23 L Hgb 9.2 L Hct 27.9 L Plt Count 119 L Lymph % (Auto) 10.2 L Dunn % (Auto) 7.6 H Lymph # 0.8 L Seg Neutrophils % 79.9 H INR APTT Activated Clotting Time POC ABG pH POC ABG pO2 67 L Potassium Chloride Carbon Dioxide 21 L BUN 41 H Creatinine 2.5 H Glucose 151 H POC Glucose Calcium 8.1 L AST ALT Total Creatine Kinase Albumin Urine Creatinine Urine Chloride Crossmatch 11/26/16 11/26/16 11/26/16 07:40 11:28 15:50 WBC RBC Hgb Hct Plt Count Lymph % (Auto) Dunn % (Auto) Lymph # Seg Neutrophils % INR APTT Activated Clotting Time POC ABG pH POC ABG pO2 Potassium Chloride Carbon Dioxide BUN Creatinine Glucose POC Glucose 144 H 168 H 153 H Calcium AST ALT Total Creatine Kinase Albumin Urine Creatinine Urine Chloride Crossmatch 11/27/16 11/27/16 11/27/16 00:03 03:45 06:26 WBC RBC Hgb Hct Plt Count Lymph % (Auto) Dunn % (Auto) Lymph # Seg Neutrophils % INR APTT Activated Clotting Time POC ABG pH POC ABG pO2 Potassium Chloride Carbon Dioxide BUN 46 H Creatinine 2.8 H Glucose 147 H POC Glucose 183 H 208 H Calcium 8.1 L AST ALT Total Creatine Kinase Albumin Urine Creatinine Urine Chloride Crossmatch 11/27/16 11/27/16 07:32 11:53 WBC RBC Hgb Hct Plt Count Lymph % (Auto) Dunn % (Auto) Lymph # Seg Neutrophils % INR APTT Activated Clotting Time POC ABG pH POC ABG pO2 Potassium Chloride Carbon Dioxide BUN Creatinine Glucose POC Glucose 193 H 180 H Calcium AST ALT Total Creatine Kinase Albumin Urine Creatinine Urine Chloride Crossmatch
[2016-11-27] MEDS: MORPHINE IV PRN (16:22)
[2016-11-28] MEDS: TYLENOL PO PRN (00:20)
[2016-11-28] MEDS: NACL 0.45% 1000 ML 1,000 ML IV SCH (00:21)
[2016-11-28] MEDS: COREG PO SCH ×2 (10:20→23:07)
[2016-11-28] MEDS: PEPCID PO SCH (10:20)
[2016-11-28] MEDS: PLAVIX PO SCH (10:20)
[2016-11-28] MEDS: ECOTRIN PO SCH (10:20)
[2016-11-28 10:21] LABS: Hematocrit 25.3 % (30.3-42.9); Hemoglobin 8.5 gm/dl (10.1-14.3)
[2016-11-28] MEDS: HEPARIN SUB-Q SCH ×2 (10:21→23:11)
--- NOTE | 2016-11-28 10:30 | Progress Note ---
Assessment and Plan Impression * Acute kidney injury. Most likely contrast nephropathy * Coronary artery disease. Status post angiogram and angioplasty. Patient also has a history of coronary artery bypass surgery * Uncontrolled Hypertension * Cardiomyopathy with an ejection fraction of 40-45% * Anemia Recommendations * Serum creatinine 2.8 and stable today, follow up am lytes * follow up daily lytes * Continue gentle hydration * Her baseline creatinine however is approximately 1.4 * Patient is currently nonoliguric * Her urine shows 2+ dipstick protein and fractional excretion of sodium is 0.13 % * Her hyperkalemia has been corrected * Her acidosis has been corrected as well * Avoid nephrotoxins * Monitor patient's renal function, fluid status and electrolytes closely * home once cr is stable or improving from renal standpoint Subjective Date of service: 11/28/16 Principal diagnosis: CAD; Acute Encephalopathy Interval history: resting well in bed today, on acute events Objective - Exam Narrative Exam: General appearance: well-developed, well-nourished, appears stated age EENT: PERRL, mucous membranes moist Neck: no JVD, no thyromegaly, no carotid bruit, supple Respiratory: Present: Decreased Breath Sounds (at the bases) Cardiology: regular, normal heart rate, S1S2, no murmurs Gastrointestinal: normal, normoactive bowel sounds Integumentary: no rash, other (no edema) - Vital Signs Vital signs: Vital Signs - 12hr 11/27/16 11/28/16 11/28/16 22:42 00:00 01:02 Temperature 98.2 F Pulse Rate 62 61 Pulse Rate [ From Monitor] Pulse Rate [ 61 Left Radial] Respiratory 18 20 Rate Blood Pressure 136/71 Blood Pressure 128/66 [Right Arm] O2 Sat by Pulse 97 98 Oximetry 11/28/16 11/28/16 11/28/16 01:08 06:00 06:03 Temperature 98.4 F Pulse Rate 50 L Pulse Rate [ From Monitor] Pulse Rate [ 60 Left Radial] Respiratory 18 Rate Blood Pressure Blood Pressure 102/54 [Right Arm] O2 Sat by Pulse 98 97 Oximetry 11/28/16 11/28/16 11/28/16 08:00 08:34 09:40 Temperature 98.1 F Pulse Rate Pulse Rate [ 59 L From Monitor] Pulse Rate [ Left Radial] Respiratory 20 Rate Blood Pressure Blood Pressure 112/56 [Right Arm] O2 Sat by Pulse 81 L 91 Oximetry 11/28/16 10:20 Temperature Pulse Rate 60 Pulse Rate [ From Monitor] Pulse Rate [ Left Radial] Respiratory Rate Blood Pressure 112/56 Blood Pressure [Right Arm] O2 Sat by Pulse Oximetry - Lab 11/28/16 10:01 11/28/16 10:01 Most recent lab results Calcium 8.1 mg/dL (8.4-10.2) L 11/27/16 03:45 Urine Creatinine 295.3 mg/dL (0.1-20.0) H 11/24/16 21:57 Urine Sodium 18 mEq/L 11/24/16 21:57
[2016-11-28 10:39] LABS: BUN/Creatinine Ratio 17.85; Calcium 8.1 mg/dL (8.4-10.2); Chloride 99.2 mmol/L (98-107); Potassium 4.2 mmol/L (3.6-5.0)
--- NOTE | 2016-11-28 12:25 | Progress Note ---
Assessment and Plan Altered mental status Head CT shows no acute intracranial process Hyperkalemia -resolved Coronary artery disease with prior CABG Right and LHC findings: moderate to severe elevated left and right heart filling pressures; moderate to severe pulmonary HTN 3 vessel disease ESTRADA to LAD patent SVG x 2 occluded (Diag and OM) subtotal occlusion of proximal segment of SVG to RCA treated with a drug eluting stent EF 40-45% Acute renal failure Acute drop in H&H s/p blood transfusion Ischemic Cardiomyopathy Hypertension Subjective Date of service: 11/28/16 Principal diagnosis: CAD; Acute Encephalopathy Interval history: Patient resting in bed comfortably. She has no complaints. Objective Vital Signs Temp Pulse Pulse Pulse Resp BP BP 11/28/16 10:20 60 112/56 11/28/16 09:40 11/28/16 08:34 11/28/16 08:00 98.1 F 59 L 20 112/56 11/28/16 06:03 98.4 F 60 18 102/54 11/28/16 06:00 50 L 11/28/16 01:08 11/28/16 01:02 61 20 11/28/16 00:00 98.2 F 61 18 128/66 11/27/16 22:42 62 136/71 11/27/16 22:00 64 11 L 131/78 11/27/16 21:56 62 17 138/73 11/27/16 21:50 66 15 133/72 11/27/16 21:45 62 15 118/54 11/27/16 21:40 63 10 L 124/61 11/27/16 21:36 63 12 124/61 11/27/16 21:30 60 17 124/61 11/27/16 21:16 64 12 124/61 11/27/16 21:00 65 15 124/61 11/27/16 20:46 63 13 107/45 11/27/16 20:30 61 15 107/45 11/27/16 20:16 64 15 107/45 11/27/16 20:00 97.9 F 64 14 107/45 11/27/16 19:46 64 14 120/44 11/27/16 19:30 64 15 120/44 11/27/16 19:16 64 13 120/44 11/27/16 19:00 63 17 120/44 11/27/16 18:46 63 15 97/44 11/27/16 18:30 63 16 97/44 18 18:16 67 15 97/44 11/27/16 18:00 63 13 97/44 11/27/16 17:46 65 14 112/55 1817 17:30 64 19 112/55 11/27/16 17:16 63 13 112/55 1817 17:00 64 18 112/55 11/27/16 16:46 63 15 104/47 11/27/16 16:30 65 16 104/47 11/27/16 16:16 64 17 104/47 11/27/16 16:00 99.1 F 66 15 104/47 18 15:46 63 16 101/47 11/27/16 15:30 63 15 101/47 11/27/16 15:16 64 17 101/47 11/27/16 15:00 64 20 101/47 1817 14:46 65 19 115/47 11/27/16 14:30 64 19 115/47 11/27/16 14:16 63 16 115/47 11/27/16 14:00 65 17 115/47 11/27/16 13:46 65 14 120/54 11/27/16 13:30 64 16 120/54 11/27/16 13:16 65 16 120/54 11/27/16 13:00 64 15 120/54 11/27/16 12:46 65 12 117/50 11/27/16 12:30 67 19 117/50 Pulse Ox 11/28/16 10:20 11/28/16 09:40 91 11/28/16 08:34 81 L 11/28/16 08:00 11/28/16 06:03 97 11/28/16 06:00 11/28/16 01:08 98 11/28/16 01:02 98 11/28/16 00:00 97 11/27/16 22:42 11/27/16 22:00 90 11/27/16 21:56 94 11/27/16 21:50 87 11/27/16 21:45 91 17 21:40 95 17 21:36 90 11/27/16 21:30 97 11/27/16 21:16 96 11/27/16 21:00 92 11/27/16 20:46 95 11/27/16 20:30 95 11/27/16 20:16 93 11/27/16 20:00 85 11/27/16 19:46 94 11/27/16 19:30 96 11/27/16 19:16 97 11/27/16 19:00 92 11/27/16 18:46 93 11/27/16 18:30 94 11/27/16 18:16 94 11/27/16 18:00 90 11/27/16 17:46 96 11/27/16 17:30 96 11/27/16 17:16 97 11/27/16 17:00 91 11/27/16 16:46 96 11/27/16 16:30 94 11/27/16 16:16 94 11/27/16 16:00 90 11/27/16 15:46 97 11/27/16 15:30 97 11/27/16 15:16 97 11/27/16 15:00 93 11/27/16 14:46 96 11/27/16 14:30 98 11/27/16 14:16 98 11/27/16 14:00 92 11/27/16 13:46 95 11/27/16 13:30 96 11/27/16 13:16 95 11/27/16 13:00 92 11/27/16 12:46 95 11/27/16 12:30 96 - Physical Examination General: No Apparent Distress HEENT: Positive: PERRL Neck: Positive: trachea midline Cardiac: Positive: Reg Rate and Rhythm Lungs: Positive: Decreased Breath Sounds Neuro: Positive: Grossly Intact - Labs and Meds CBC 11/28/16 Range/Units 10:01 Hgb 8.5 L (10.1-14.3) gm/dl Hct 25.3 L (30.3-42.9) % Comprehensive Metabolic Panel 11/28/16 Range/Units 10:01 Sodium 136 L (137-145) mmol/L Potassium 4.2 (3.6-5.0) mmol/L Chloride 99.2 (98-107) mmol/L Carbon Dioxide 25 (22-30) mmol/L BUN 50 H (7-17) mg/dL Creatinine 2.8 H (0.7-1.2) mg/dL Glucose 143 H (65-100) mg/dL Calcium 8.1 L (8.4-10.2) mg/dL
[2016-11-28] MEDS ORDERED: NACL 0.9% 500 ML 500 ML IV ONE ×2 (13:34→17:00)
[2016-11-28] MEDS: PROCARDIA XL PO SCH ×2 (13:43→23:07)
[2016-11-28] MEDS: IMDUR PO SCH (13:45)
[2016-11-28] MEDS ORDERED: BENADRYL IV ONE ×2 (14:00→17:00)
[2016-11-28] MEDS ORDERED: LASIX IV ONE ×2 (14:00→17:00)
[2016-11-28] MEDS ORDERED: NACL 0.9% 1000 ML 1,000 ML ONE (15:57)
--- NOTE | 2016-11-28 23:51 | Progress Note ---
Assessment and Plan Patient sleeping at this time. Patient is on nasal canula 3 litres O2 and O2 saturation 97%. BIPAP standby in the room. - Patient Problems (1) PATRIA (acute kidney injury) Current Visit: Yes Status: Acute Plan to address problem: Management as per nephrology. (2) Acute encephalopathy Current Visit: Yes Status: Acute Plan to address problem: Patient sleeping at this time. (3) Anemia Current Visit: Yes Status: Acute Qualifiers: Anemia type: A Iron deficiency anemia type: I Vitamin B12 deficiency anemia type: V Folate deficiency anemia type: F Bone marrow failure anemia type: B Hemolytic anemia type: H Other causes of anemia: O Chronic kidney disease stage: C Plan to address problem: Management as per primary care. (4) CAD (coronary artery disease) of artery bypass graft Current Visit: Yes Status: Acute Qualifiers: [place] vs. transplanted heart: N Associated angina: A Plan to address problem: Management as per cardiology. (5) Obesity (BMI 30-39.9) Current Visit: Yes Status: Acute Plan to address problem: Weight reduction diet. (6) Sleep apnea Current Visit: Yes Status: Acute Qualifiers: Sleep apnea type: S Plan to address problem: Possible sleep apnea. BIPAP standby in the room. Recommend sleep study. Subjective Date of service: 11/28/16 Principal diagnosis: CAD; Acute Encephalopathy Interval history: Patient sleeping at this time. Patient is on nasal canula 3 litres O2 and O2 saturation 97%. BIPAP standby in the room. Objective Vital Signs - 12hr 11/28/16 11/28/16 11/28/16 13:40 13:45 15:45 Temperature 98.7 F Pulse Rate 61 Pulse Rate [ 63 From Monitor] Pulse Rate [ Left Radial] Pulse Rate [ Right Dorsalis Pedis] Pulse Rate [ 61 Right Radial] Respiratory 20 Rate Blood Pressure 121/56 Blood Pressure 121/56 [Left Arm] Blood Pressure 123/59 [Right Arm] O2 Sat by Pulse Oximetry 11/28/16 11/28/16 11/28/16 18:23 18:38 19:08 Temperature 98.3 F 98.3 F 98.1 F Pulse Rate 65 64 Pulse Rate [ From Monitor] Pulse Rate [ 65 Left Radial] Pulse Rate [ Right Dorsalis Pedis] Pulse Rate [ Right Radial] Respiratory 16 16 18 Rate Blood Pressure 126/63 121/63 Blood Pressure [Left Arm] Blood Pressure 127/62 [Right Arm] O2 Sat by Pulse 96 100 100 Oximetry 11/28/16 11/28/16 11/28/16 19:38 19:49 20:08 Temperature 98.5 F 98.1 F 98.2 F Pulse Rate 65 65 Pulse Rate [ From Monitor] Pulse Rate [ Left Radial] Pulse Rate [ 63 Right Dorsalis Pedis] Pulse Rate [ Right Radial] Respiratory 16 18 18 Rate Blood Pressure 123/64 124/57 Blood Pressure [Left Arm] Blood Pressure 121/63 [Right Arm] O2 Sat by Pulse 98 100 98 Oximetry 11/28/16 11/28/16 11/28/16 20:38 21:24 22:00 Temperature 98.2 F 98.2 F Pulse Rate 65 64 66 Pulse Rate [ From Monitor] Pulse Rate [ Left Radial] Pulse Rate [ Right Dorsalis Pedis] Pulse Rate [ Right Radial] Respiratory 16 18 Rate Blood Pressure 104/58 101/59 Blood Pressure [Left Arm] Blood Pressure [Right Arm] O2 Sat by Pulse 99 100 Oximetry 11/28/16 11/28/16 22:05 23:07 Temperature Pulse Rate 64 Pulse Rate [ From Monitor] Pulse Rate [ Left Radial] Pulse Rate [ Right Dorsalis Pedis] Pulse Rate [ Right Radial] Respiratory Rate Blood Pressure 119/60 Blood Pressure [Left Arm] Blood Pressure [Right Arm] O2 Sat by Pulse 97 Oximetry Constitutional: no acute distress, other (somnolent) Eyes: non-icteric ENT: oropharynx moist Neck: supple, no lymphadenopathy Effort: normal Ascultation: Bilateral: diminished breath sounds, rales (scant in posterior bases) Cardiovascular: regular rate and rhythm Gastrointestinal: normoactive bowel sounds, soft, non-tender, non-distended Integumentary: normal Extremities: no cyanosis, no edema, pulses normal, no ischemia or petechiae Neurologic: normal mental status, non-focal exam, pupils equal and round, motor strength normal and Psychiatric: depressed CBC and BMP: 11/28/16 10:01 11/28/16 10:01 ABG, PT/INR, D-dimer: ABG POC ABG pH 7.356 (7.35-7.45) 11/25/16 22:20 POC ABG pCO2 38.1 (35-45) 11/25/16 22:20 POC ABG pO2 67 (80-105) L 11/25/16 22:20 POC ABG HCO3 21.3 11/25/16 22:20 POC ABG Total CO2 22 11/25/16 22:20 POC ABG O2 Sat 92 11/25/16 22:20 PT/INR, D-dimer PT 14.5 Sec. (12.2-14.9) 11/22/16 07:20 INR 1.14 (0.87-1.13) H 11/22/16 07:20 Abnormal lab findings: Abnormal Labs 11/22/16 11/22/16 11/22/16 07:20 07:20 07:20 WBC RBC 3.52 L Hgb Hct Plt Count Lymph % (Auto) [place] % (Auto) 11.5 H Lymph # Seg Neutrophils % INR 1.14 H APTT Activated Clotting Time POC ABG pH POC ABG pO2 Sodium Potassium Chloride 108.0 H Carbon Dioxide BUN 25 H Creatinine 1.4 H Glucose POC Glucose Calcium AST ALT Total Creatine Kinase Albumin Urine Creatinine Urine Chloride Crossmatch 11/22/16 11/22/16 11/22/16 07:37 10:46 13:13 WBC RBC Hgb Hct Plt Count Lymph % (Auto) [place] % (Auto) Lymph # Seg Neutrophils % INR APTT 37.7 H Activated Clotting Time 327 H 202 H POC ABG pH POC ABG pO2 Sodium Potassium Chloride Carbon Dioxide BUN Creatinine Glucose POC Glucose Calcium AST ALT Total Creatine Kinase Albumin Urine Creatinine Urine Chloride Crossmatch 11/22/16 11/23/16 11/23/16 14:25 06:49 06:49 WBC 4.1 L RBC 2.74 L Hgb 7.7 L Hct 23.8 L D Plt Count 135 L Lymph % (Auto) [place] % (Auto) 13.8 H Lymph # Seg Neutrophils % INR APTT Activated Clotting Time 175 H POC ABG pH POC ABG pO2 Sodium Potassium Chloride Carbon Dioxide BUN 27 H Creatinine 1.8 H Glucose 137 H POC Glucose Calcium 8.0 L AST ALT Total Creatine Kinase 183 H Albumin Urine Creatinine Urine Chloride Crossmatch 11/23/16 11/23/16 11/23/16 11:07 12:45 17:32 WBC RBC 2.98 L Hgb 8.5 L Hct 26.3 L Plt Count Lymph % (Auto) [place] % (Auto) 13.2 H Lymph # Seg Neutrophils % INR APTT Activated Clotting Time POC ABG pH POC ABG pO2 Sodium Potassium Chloride Carbon Dioxide BUN Creatinine Glucose POC Glucose 134 H 171 H Calcium AST ALT Total Creatine Kinase Albumin Urine Creatinine Urine Chloride Crossmatch 11/23/16 11/24/16 11/24/16 21:24 05:28 05:28 WBC RBC Hgb 8.6 L Hct 26.8 L Plt Count Lymph % (Auto) [place] % (Auto) Lymph # Seg Neutrophils % INR APTT Activated Clotting Time POC ABG pH POC ABG pO2 Sodium Potassium 5.9 H D Chloride Carbon Dioxide 19 L BUN 33 H Creatinine 2.7 H Glucose 162 H POC Glucose 174 H Calcium AST ALT Total Creatine Kinase Albumin Urine Creatinine Urine Chloride Crossmatch 11/24/16 11/24/16 11/24/16 06:23 07:05 07:09 WBC RBC Hgb Hct Plt Count Lymph % (Auto) [place] % (Auto) Lymph # Seg Neutrophils % INR APTT Activated Clotting Time POC ABG pH 7.264 L POC ABG pO2 33 L Sodium Potassium 5.8 H Chloride Carbon Dioxide 20 L BUN 33 H Creatinine 2.8 H Glucose 158 H POC Glucose 209 H Calcium AST 100 H ALT 118 H Total Creatine Kinase Albumin 3.5 L Urine Creatinine Urine Chloride Crossmatch 11/24/16 11/24/16 11/24/16 07:19 08:50 11:45 WBC RBC Hgb Hct Plt Count Lymph % (Auto) [place] % (Auto) Lymph # Seg Neutrophils % INR APTT Activated Clotting Time POC ABG pH 7.285 L POC ABG pO2 64 L Sodium Potassium Chloride Carbon Dioxide BUN Creatinine Glucose POC Glucose 193 H 169 H Calcium AST ALT Total Creatine Kinase Albumin Urine Creatinine Urine Chloride Crossmatch 11/24/16 11/24/16 11/24/16 15:24 15:32 17:14 WBC RBC Hgb Hct Plt Count Lymph % (Auto) [place] % (Auto) Lymph # Seg Neutrophils % INR APTT Activated Clotting Time POC ABG pH POC ABG pO2 Sodium Potassium 5.2 H Chloride Carbon Dioxide 20 L BUN 37 H Creatinine 3.0 H Glucose 144 H POC Glucose 195 H Calcium AST ALT Total Creatine Kinase Albumin Urine Creatinine Urine Chloride Crossmatch See Detail 11/24/16 11/24/16 11/25/16 21:57 23:39 05:30 WBC RBC Hgb Hct Plt Count Lymph % (Auto) [place] % (Auto) Lymph # Seg Neutrophils % INR APTT Activated Clotting Time POC ABG pH POC ABG pO2 Sodium Potassium Chloride Carbon Dioxide BUN Creatinine Glucose POC Glucose 112 H 129 H Calcium AST ALT Total Creatine Kinase Albumin Urine Creatinine 295.3 H Urine Chloride 31.3 L Crossmatch 11/25/16 11/25/16 11/25/16 07:00 07:00 08:40 WBC RBC 3.30 L Hgb 9.5 L Hct 29.0 L Plt Count 119 L Lymph % (Auto) [place] % (Auto) 9.5 H Lymph # Seg Neutrophils % 72.7 H INR APTT Activated Clotting Time POC ABG pH POC ABG pO2 Sodium Potassium Chloride 110.1 H Carbon Dioxide 18 L BUN 38 H Creatinine 2.6 H Glucose 123 H POC Glucose 129 H Calcium 8.2 L AST ALT Total Creatine Kinase Albumin Urine Creatinine Urine Chloride Crossmatch 11/25/16 11/25/16 11/25/16 11:24 12:17 16:16 WBC RBC Hgb Hct Plt Count Lymph % (Auto) [place] % (Auto) Lymph # Seg Neutrophils % INR APTT Activated Clotting Time POC ABG pH 7.327 L POC ABG pO2 Sodium Potassium Chloride Carbon Dioxide BUN Creatinine Glucose POC Glucose 142 H 151 H Calcium AST ALT Total Creatine Kinase Albumin Urine Creatinine Urine Chloride Crossmatch 11/25/16 11/25/16 11/26/16 21:48 22:20 00:58 WBC RBC 3.23 L Hgb 9.2 L Hct 27.9 L Plt Count 119 L Lymph % (Auto) 10.2 L [place] % (Auto) 7.6 H Lymph # 0.8 L Seg Neutrophils % 79.9 H INR APTT Activated Clotting Time POC ABG pH POC ABG pO2 67 L Sodium Potassium Chloride Carbon Dioxide BUN Creatinine Glucose POC Glucose 149 H Calcium AST ALT Total Creatine Kinase Albumin Urine Creatinine Urine Chloride Crossmatch 11/26/16 11/26/16 11/26/16 06:11 07:40 11:28 WBC RBC Hgb Hct Plt Count Lymph % (Auto) [place] % (Auto) Lymph # Seg Neutrophils % INR APTT Activated Clotting Time POC ABG pH POC ABG pO2 Sodium Potassium Chloride Carbon Dioxide 21 L BUN 41 H Creatinine 2.5 H Glucose 151 H POC Glucose 144 H 168 H Calcium 8.1 L AST ALT Total Creatine Kinase Albumin Urine Creatinine Urine Chloride Crossmatch 11/26/16 11/27/16 11/27/16 15:50 00:03 03:45 WBC RBC Hgb Hct Plt Count Lymph % (Auto) [place] % (Auto) Lymph # Seg Neutrophils % INR APTT Activated Clotting Time POC ABG pH POC ABG pO2 Sodium Potassium Chloride Carbon Dioxide BUN 46 H Creatinine 2.8 H Glucose 147 H POC Glucose 153 H 183 H Calcium 8.1 L AST ALT Total Creatine Kinase Albumin Urine Creatinine Urine Chloride Crossmatch 11/27/16 11/27/16 11/27/16 06:26 07:32 11:53 WBC RBC Hgb Hct Plt Count Lymph % (Auto) [place] % (Auto) Lymph # Seg Neutrophils % INR APTT Activated Clotting Time POC ABG pH POC ABG pO2 Sodium Potassium Chloride Carbon Dioxide BUN Creatinine Glucose POC Glucose 208 H 193 H 180 H Calcium AST ALT Total Creatine Kinase Albumin Urine Creatinine Urine Chloride Crossmatch 11/27/16 11/27/16 11/28/16 16:42 21:51 08:13 WBC RBC Hgb Hct Plt Count Lymph % (Auto) [place] % (Auto) Lymph # Seg Neutrophils % INR APTT Activated Clotting Time POC ABG pH POC ABG pO2 Sodium Potassium Chloride Carbon Dioxide BUN Creatinine Glucose POC Glucose 161 H 167 H 151 H Calcium AST ALT Total Creatine Kinase Albumin Urine Creatinine Urine Chloride Crossmatch 11/28/16 11/28/16 11/28/16 10:01 10:01 12:30 WBC RBC Hgb 8.5 L Hct 25.3 L Plt Count Lymph % (Auto) [place] % (Auto) Lymph # Seg Neutrophils % INR APTT Activated Clotting Time POC ABG pH POC ABG pO2 Sodium 136 L Potassium Chloride Carbon Dioxide BUN 50 H Creatinine 2.8 H Glucose 143 H POC Glucose 154 H Calcium 8.1 L AST ALT Total Creatine Kinase Albumin Urine Creatinine Urine Chloride Crossmatch 11/28/16 11/28/16 11/28/16 15:22 16:55 20:40 WBC RBC Hgb Hct Plt Count Lymph % (Auto) [place] % (Auto) Lymph # Seg Neutrophils % INR APTT Activated Clotting Time POC ABG pH POC ABG pO2 Sodium Potassium Chloride Carbon Dioxide BUN Creatinine Glucose POC Glucose 191 H 177 H Calcium AST ALT Total Creatine Kinase Albumin Urine Creatinine Urine Chloride Crossmatch See Detail Chest x-ray: report reviewed (Mild cardiomegaly and pulmonary venous hypertension.)
[2016-11-29] MEDS: NACL 0.45% 1000 ML 1,000 ML IV SCH (00:48)
[2016-11-29 07:58] LABS: Hematocrit 28.2 % (30.3-42.9); Hemoglobin 9.5 gm/dl (10.1-14.3)
[2016-11-29 08:38] LABS: BUN/Creatinine Ratio 18.88; Calcium 8.1 mg/dL (8.4-10.2); Chloride 102.2 mmol/L (98-107); Potassium 4.4 mmol/L (3.6-5.0)
[2016-11-29] MEDS: HEPARIN SUB-Q SCH ×2 (10:00→23:23)
--- NOTE | 2016-11-29 10:35 | Progress Note ---
Assessment and Plan Impression * Acute kidney injury. Most likely contrast nephropathy * Coronary artery disease. Status post angiogram and angioplasty. Patient also has a history of coronary artery bypass surgery * Uncontrolled Hypertension * Cardiomyopathy with an ejection fraction of 40-45% * Anemia Recommendations * Serum creatinine 2.7 and stable today, follow up am lytes * follow up daily lytes * stop gentle hydration, but patient was given iv lasix as well * Her baseline creatinine however is approximately 1.4 * Patient is currently nonoliguric * Her urine shows 2+ dipstick protein and fractional excretion of sodium is 0.13 % * Her hyperkalemia has been corrected * Her acidosis has been corrected as well * Avoid nephrotoxins * remove khan, pt to evaluate and treat * Monitor patient's renal function, fluid status and electrolytes closely * ok to dc home-- cr is stable or improving from renal standpoint * no emili or arb upon hospital discharge Subjective Date of service: 11/29/16 Principal diagnosis: CAD; Acute Encephalopathy Interval history: resting well in bed today, on acute events Objective - Exam Narrative Exam: General appearance: well-developed, well-nourished, appears stated age EENT: PERRL, mucous membranes moist Neck: no JVD, no thyromegaly, no carotid bruit, supple Respiratory: Present: Decreased Breath Sounds (at the bases) Cardiology: regular, normal heart rate, S1S2, no murmurs Gastrointestinal: normal, normoactive bowel sounds Integumentary: no rash, other (no edema) - Vital Signs Vital signs: Vital Signs - 12hr 11/28/16 11/29/16 11/29/16 23:07 00:18 01:00 Temperature 98 F Pulse Rate 64 65 Pulse Rate [ 76 Right Dorsalis Pedis] Respiratory 18 22 Rate Blood Pressure 119/60 Blood Pressure [Left Arm] Blood Pressure 118/60 [Right Arm] O2 Sat by Pulse 94 99 Oximetry 11/29/16 11/29/16 11/29/16 05:13 05:48 08:00 Temperature 97.9 F 99.2 F Pulse Rate 65 Pulse Rate [ 64 68 Right Dorsalis Pedis] Respiratory 18 20 Rate Blood Pressure Blood Pressure 118/57 111/59 [Left Arm] Blood Pressure [Right Arm] O2 Sat by Pulse 98 95 Oximetry 11/29/16 10:16 Temperature Pulse Rate Pulse Rate [ Right Dorsalis Pedis] Respiratory Rate Blood Pressure Blood Pressure [Left Arm] Blood Pressure [Right Arm] O2 Sat by Pulse 100 Oximetry - Lab 11/29/16 07:18 11/29/16 07:18 Most recent lab results Calcium 8.1 mg/dL (8.4-10.2) L 11/29/16 07:18 Urine Creatinine 295.3 mg/dL (0.1-20.0) H 11/24/16 21:57 Urine Sodium 18 mEq/L 11/24/16 21:57
[2016-11-29] MEDS: ECOTRIN PO SCH (11:22)
[2016-11-29] MEDS: IMDUR PO SCH (11:22)
[2016-11-29] MEDS: PEPCID PO SCH (11:22)
[2016-11-29] MEDS: PLAVIX PO SCH (11:22)
[2016-11-29] MEDS: PROCARDIA XL PO SCH ×2 (11:23→23:21)
[2016-11-29] MEDS: COREG PO SCH ×2 (11:23→23:21)
--- NOTE | 2016-11-29 12:15 | Progress Note ---
Assessment and Plan Altered mental status Head CT shows no acute intracranial process Hyperkalemia -resolved Coronary artery disease with prior CABG Right and LHC findings: moderate to severe elevated left and right heart filling pressures; moderate to severe pulmonary HTN 3 vessel disease ESTRADA to LAD patent SVG x 2 occluded (Diag and OM) subtotal occlusion of proximal segment of SVG to RCA treated with a drug eluting stent EF 40-45% Acute renal failure Acute drop in H&H s/p blood transfusion Ischemic Cardiomyopathy Hypertension Plan: PT evaluation and treat. Discharge planning in the next 24-48hrs. Subjective Date of service: 11/29/16 Principal diagnosis: CAD; Acute Encephalopathy Interval history: Patient resting in bed comfortably. She has no complaints. Objective Vital Signs Temp Pulse Pulse Pulse Pulse Pulse Resp 11/29/16 10:16 11/29/16 08:00 99.2 F 68 20 11/29/16 05:48 97.9 F 64 18 11/29/16 05:13 65 11/29/16 01:00 65 22 11/29/16 00:18 98 F 76 18 11/28/16 23:07 64 11/28/16 22:05 11/28/16 22:00 66 11/28/16 21:24 98.2 F 64 18 11/28/16 20:38 98.2 F 65 16 11/28/16 20:08 98.2 F 65 18 11/28/16 19:49 98.1 F 63 18 11/28/16 19:38 98.5 F 65 16 11/28/16 19:08 98.1 F 64 18 11/28/16 18:38 98.3 F 65 16 11/28/16 18:23 98.3 F 65 16 11/28/16 15:45 98.7 F 63 20 11/28/16 13:45 61 11/28/16 13:40 61 BP BP BP Pulse Ox 11/29/16 10:16 100 11/29/16 08:00 111/59 95 11/29/16 05:48 118/57 98 11/29/16 05:13 11/29/16 01:00 99 11/29/16 00:18 118/60 94 11/28/16 23:07 119/60 11/28/16 22:05 97 11/28/16 22:00 11/28/16 21:24 101/59 100 06/19/17 20:38 104/58 99 11/28/16 20:08 124/57 98 11/28/16 19:49 121/63 100 11/28/16 19:38 123/64 98 11/28/16 19:08 121/63 100 11/28/16 18:38 126/63 100 11/28/16 18:23 127/62 96 11/28/16 15:45 123/59 11/28/16 13:45 121/56 11/28/16 13:40 121/56 - Physical Examination General: No Apparent Distress Neck: Positive: trachea midline Cardiac: Positive: Reg Rate and Rhythm Lungs: Positive: Decreased Breath Sounds Neuro: Positive: Grossly Intact, Weakness Incision: Cardiac Cath Site Extremities: Absent: edema - Labs and Meds CBC 11/29/16 Range/Units 07:18 Hgb 9.5 L (10.1-14.3) gm/dl Hct 28.2 L (30.3-42.9) % Comprehensive Metabolic Panel 11/29/16 Range/Units 07:18 Sodium 136 L (137-145) mmol/L Potassium 4.4 (3.6-5.0) mmol/L Chloride 102.2 (98-107) mmol/L Carbon Dioxide 22 (22-30) mmol/L BUN 51 H (7-17) mg/dL Creatinine 2.7 H (0.7-1.2) mg/dL Glucose 120 H (65-100) mg/dL Calcium 8.1 L (8.4-10.2) mg/dL
--- NOTE | 2016-11-29 19:55 | Progress Note ---
Assessment and Plan Patient sleeping at this time. Patient is on nasal canula 3 litres O2 and O2 saturation 98%. BIPAP standby in the room. - Patient Problems (1) PATRIA (acute kidney injury) Current Visit: Yes Status: Acute Plan to address problem: Management as per nephrology. (2) Acute encephalopathy Current Visit: Yes Status: Acute Plan to address problem: Patient sleeping at this time. (3) Anemia Current Visit: Yes Status: Acute Qualifiers: Anemia type: A Iron deficiency anemia type: I Vitamin B12 deficiency anemia type: V Folate deficiency anemia type: F Bone marrow failure anemia type: B Hemolytic anemia type: H Other causes of anemia: O Chronic kidney disease stage: C Plan to address problem: Management as per primary care. (4) CAD (coronary artery disease) of artery bypass graft Current Visit: Yes Status: Acute Qualifiers: [place] vs. transplanted heart: N Associated angina: A Plan to address problem: Management as per cardiology. (5) Obesity (BMI 30-39.9) Current Visit: Yes Status: Acute Plan to address problem: Weight reduction diet. (6) Sleep apnea Current Visit: Yes Status: Acute Qualifiers: Sleep apnea type: S Plan to address problem: Possible sleep apnea. BIPAP standby in the room. Recommend sleep study. Subjective Date of service: 11/29/16 Principal diagnosis: CAD; Acute Encephalopathy Interval history: Patient sleeping at this time. Patient is on nasal canula 3 litres O2 and O2 saturation 98%. BIPAP standby in the room. Objective Vital Signs - 12hr 11/29/16 11/29/16 11/29/16 08:00 10:16 13:00 Temperature 99.2 F 98.4 F Pulse Rate Pulse Rate [ 68 74 Right Dorsalis Pedis] Respiratory 20 20 Rate Blood Pressure 111/59 [Left Arm] Blood Pressure 122/72 [Right Arm] O2 Sat by Pulse 95 100 99 Oximetry 11/29/16 11/29/16 17:00 18:30 Temperature 98.9 F Pulse Rate 74 Pulse Rate [ 69 Right Dorsalis Pedis] Respiratory 18 Rate Blood Pressure [Left Arm] Blood Pressure 127/61 [Right Arm] O2 Sat by Pulse 100 Oximetry Constitutional: no acute distress, other (somnolent) Eyes: non-icteric ENT: oropharynx moist Neck: supple, no lymphadenopathy Effort: normal Ascultation: Bilateral: diminished breath sounds, rales (scant in posterior bases) Cardiovascular: regular rate and rhythm Gastrointestinal: normoactive bowel sounds, soft, non-tender, non-distended Integumentary: normal Extremities: no cyanosis, no edema, pulses normal, no ischemia or petechiae Neurologic: normal mental status, non-focal exam, pupils equal and round, motor strength normal and Psychiatric: depressed CBC and BMP: 11/29/16 07:18 11/29/16 07:18 ABG, PT/INR, D-dimer: ABG POC ABG pH 7.356 (7.35-7.45) 11/25/16 22:20 POC ABG pCO2 38.1 (35-45) 11/25/16 22:20 POC ABG pO2 67 (80-105) L 11/25/16 22:20 POC ABG HCO3 21.3 11/25/16 22:20 POC ABG Total CO2 22 11/25/16 22:20 POC ABG O2 Sat 92 11/25/16 22:20 PT/INR, D-dimer PT 14.5 Sec. (12.2-14.9) 11/22/16 07:20 INR 1.14 (0.87-1.13) H 11/22/16 07:20 Abnormal lab findings: Abnormal Labs 11/22/16 11/22/16 11/22/16 07:20 07:20 07:20 WBC RBC 3.52 L Hgb Hct Plt Count Lymph % (Auto) [place] % (Auto) 11.5 H Lymph # Seg Neutrophils % INR 1.14 H APTT Activated Clotting Time POC ABG pH POC ABG pO2 Sodium Potassium Chloride 108.0 H Carbon Dioxide BUN 25 H Creatinine 1.4 H Glucose POC Glucose Calcium AST ALT Total Creatine Kinase Albumin Urine Creatinine Urine Chloride Crossmatch 11/22/16 11/22/16 11/22/16 07:37 10:46 13:13 WBC RBC Hgb Hct Plt Count Lymph % (Auto) [place] % (Auto) Lymph # Seg Neutrophils % INR APTT 37.7 H Activated Clotting Time 327 H 202 H POC ABG pH POC ABG pO2 Sodium Potassium Chloride Carbon Dioxide BUN Creatinine Glucose POC Glucose Calcium AST ALT Total Creatine Kinase Albumin Urine Creatinine Urine Chloride Crossmatch 11/22/16 11/23/16 11/23/16 14:25 06:49 06:49 WBC 4.1 L RBC 2.74 L Hgb 7.7 L Hct 23.8 L D Plt Count 135 L Lymph % (Auto) [place] % (Auto) 13.8 H Lymph # Seg Neutrophils % INR APTT Activated Clotting Time 175 H POC ABG pH POC ABG pO2 Sodium Potassium Chloride Carbon Dioxide BUN 27 H Creatinine 1.8 H Glucose 137 H POC Glucose Calcium 8.0 L AST ALT Total Creatine Kinase 183 H Albumin Urine Creatinine Urine Chloride Crossmatch 11/23/16 11/23/16 11/23/16 11:07 12:45 17:32 WBC RBC 2.98 L Hgb 8.5 L Hct 26.3 L Plt Count Lymph % (Auto) [place] % (Auto) 13.2 H Lymph # Seg Neutrophils % INR APTT Activated Clotting Time POC ABG pH POC ABG pO2 Sodium Potassium Chloride Carbon Dioxide BUN Creatinine Glucose POC Glucose 134 H 171 H Calcium AST ALT Total Creatine Kinase Albumin Urine Creatinine Urine Chloride Crossmatch 11/23/16 11/24/16 11/24/16 21:24 05:28 05:28 WBC RBC Hgb 8.6 L Hct 26.8 L Plt Count Lymph % (Auto) [place] % (Auto) Lymph # Seg Neutrophils % INR APTT Activated Clotting Time POC ABG pH POC ABG pO2 Sodium Potassium 5.9 H D Chloride Carbon Dioxide 19 L BUN 33 H Creatinine 2.7 H Glucose 162 H POC Glucose 174 H Calcium AST ALT Total Creatine Kinase Albumin Urine Creatinine Urine Chloride Crossmatch 11/24/16 11/24/16 11/24/16 06:23 07:05 07:09 WBC RBC Hgb Hct Plt Count Lymph % (Auto) [place] % (Auto) Lymph # Seg Neutrophils % INR APTT Activated Clotting Time POC ABG pH 7.264 L POC ABG pO2 33 L Sodium Potassium 5.8 H Chloride Carbon Dioxide 20 L BUN 33 H Creatinine 2.8 H Glucose 158 H POC Glucose 209 H Calcium AST 100 H ALT 118 H Total Creatine Kinase Albumin 3.5 L Urine Creatinine Urine Chloride Crossmatch 11/24/16 11/24/16 11/24/16 07:19 08:50 11:45 WBC RBC Hgb Hct Plt Count Lymph % (Auto) [place] % (Auto) Lymph # Seg Neutrophils % INR APTT Activated Clotting Time POC ABG pH 7.285 L POC ABG pO2 64 L Sodium Potassium Chloride Carbon Dioxide BUN Creatinine Glucose POC Glucose 193 H 169 H Calcium AST ALT Total Creatine Kinase Albumin Urine Creatinine Urine Chloride Crossmatch 11/24/16 11/24/16 11/24/16 15:24 15:32 17:14 WBC RBC Hgb Hct Plt Count Lymph % (Auto) [place] % (Auto) Lymph # Seg Neutrophils % INR APTT Activated Clotting Time POC ABG pH POC ABG pO2 Sodium Potassium 5.2 H Chloride Carbon Dioxide 20 L BUN 37 H Creatinine 3.0 H Glucose 144 H POC Glucose 195 H Calcium AST ALT Total Creatine Kinase Albumin Urine Creatinine Urine Chloride Crossmatch See Detail 11/24/16 11/24/16 11/25/16 21:57 23:39 05:30 WBC RBC Hgb Hct Plt Count Lymph % (Auto) [place] % (Auto) Lymph # Seg Neutrophils % INR APTT Activated Clotting Time POC ABG pH POC ABG pO2 Sodium Potassium Chloride Carbon Dioxide BUN Creatinine Glucose POC Glucose 112 H 129 H Calcium AST ALT Total Creatine Kinase Albumin Urine Creatinine 295.3 H Urine Chloride 31.3 L Crossmatch 11/25/16 11/25/16 11/25/16 07:00 07:00 08:40 WBC RBC 3.30 L Hgb 9.5 L Hct 29.0 L Plt Count 119 L Lymph % (Auto) [place] % (Auto) 9.5 H Lymph # Seg Neutrophils % 72.7 H INR APTT Activated Clotting Time POC ABG pH POC ABG pO2 Sodium Potassium Chloride 110.1 H Carbon Dioxide 18 L BUN 38 H Creatinine 2.6 H Glucose 123 H POC Glucose 129 H Calcium 8.2 L AST ALT Total Creatine Kinase Albumin Urine Creatinine Urine Chloride Crossmatch 11/25/16 11/25/16 11/25/16 11:24 12:17 16:16 WBC RBC Hgb Hct Plt Count Lymph % (Auto) [place] % (Auto) Lymph # Seg Neutrophils % INR APTT Activated Clotting Time POC ABG pH 7.327 L POC ABG pO2 Sodium Potassium Chloride Carbon Dioxide BUN Creatinine Glucose POC Glucose 142 H 151 H Calcium AST ALT Total Creatine Kinase Albumin Urine Creatinine Urine Chloride Crossmatch 11/25/16 11/25/16 11/26/16 21:48 22:20 00:58 WBC RBC 3.23 L Hgb 9.2 L Hct 27.9 L Plt Count 119 L Lymph % (Auto) 10.2 L [place] % (Auto) 7.6 H Lymph # 0.8 L Seg Neutrophils % 79.9 H INR APTT Activated Clotting Time POC ABG pH POC ABG pO2 67 L Sodium Potassium Chloride Carbon Dioxide BUN Creatinine Glucose POC Glucose 149 H Calcium AST ALT Total Creatine Kinase Albumin Urine Creatinine Urine Chloride Crossmatch 11/26/16 11/26/16 11/26/16 06:11 07:40 11:28 WBC RBC Hgb Hct Plt Count Lymph % (Auto) [place] % (Auto) Lymph # Seg Neutrophils % INR APTT Activated Clotting Time POC ABG pH POC ABG pO2 Sodium Potassium Chloride Carbon Dioxide 21 L BUN 41 H Creatinine 2.5 H Glucose 151 H POC Glucose 144 H 168 H Calcium 8.1 L AST ALT Total Creatine Kinase Albumin Urine Creatinine Urine Chloride Crossmatch 11/26/16 11/27/16 11/27/16 15:50 00:03 03:45 WBC RBC Hgb Hct Plt Count Lymph % (Auto) [place] % (Auto) Lymph # Seg Neutrophils % INR APTT Activated Clotting Time POC ABG pH POC ABG pO2 Sodium Potassium Chloride Carbon Dioxide BUN 46 H Creatinine 2.8 H Glucose 147 H POC Glucose 153 H 183 H Calcium 8.1 L AST ALT Total Creatine Kinase Albumin Urine Creatinine Urine Chloride Crossmatch 11/27/16 11/27/16 11/27/16 06:26 07:32 11:53 WBC RBC Hgb Hct Plt Count Lymph % (Auto) [place] % (Auto) Lymph # Seg Neutrophils % INR APTT Activated Clotting Time POC ABG pH POC ABG pO2 Sodium Potassium Chloride Carbon Dioxide BUN Creatinine Glucose POC Glucose 208 H 193 H 180 H Calcium AST ALT Total Creatine Kinase Albumin Urine Creatinine Urine Chloride Crossmatch 11/27/16 11/27/16 11/28/16 16:42 21:51 08:13 WBC RBC Hgb Hct Plt Count Lymph % (Auto) [place] % (Auto) Lymph # Seg Neutrophils % INR APTT Activated Clotting Time POC ABG pH POC ABG pO2 Sodium Potassium Chloride Carbon Dioxide BUN Creatinine Glucose POC Glucose 161 H 167 H 151 H Calcium AST ALT Total Creatine Kinase Albumin Urine Creatinine Urine Chloride Crossmatch 11/28/16 11/28/16 11/28/16 10:01 10:01 12:30 WBC RBC Hgb 8.5 L Hct 25.3 L Plt Count Lymph % (Auto) [place] % (Auto) Lymph # Seg Neutrophils % INR APTT Activated Clotting Time POC ABG pH POC ABG pO2 Sodium 136 L Potassium Chloride Carbon Dioxide BUN 50 H Creatinine 2.8 H Glucose 143 H POC Glucose 154 H Calcium 8.1 L AST ALT Total Creatine Kinase Albumin Urine Creatinine Urine Chloride Crossmatch 11/28/16 11/28/16 11/28/16 15:22 16:55 20:40 WBC RBC Hgb Hct Plt Count Lymph % (Auto) [place] % (Auto) Lymph # Seg Neutrophils % INR APTT Activated Clotting Time POC ABG pH POC ABG pO2 Sodium Potassium Chloride Carbon Dioxide BUN Creatinine Glucose POC Glucose 191 H 177 H Calcium AST ALT Total Creatine Kinase Albumin Urine Creatinine Urine Chloride Crossmatch See Detail 11/29/16 11/29/16 11/29/16 07:18 07:18 07:31 WBC RBC Hgb 9.5 L Hct 28.2 L Plt Count Lymph % (Auto) [place] % (Auto) Lymph # Seg Neutrophils % INR APTT Activated Clotting Time POC ABG pH POC ABG pO2 Sodium 136 L Potassium Chloride Carbon Dioxide BUN 51 H Creatinine 2.7 H Glucose 120 H POC Glucose 127 H Calcium 8.1 L AST ALT Total Creatine Kinase Albumin Urine Creatinine Urine Chloride Crossmatch 11/29/16 11/29/16 12:49 17:35 WBC RBC Hgb Hct Plt Count Lymph % (Auto) [place] % (Auto) Lymph # Seg Neutrophils % INR APTT Activated Clotting Time POC ABG pH POC ABG pO2 Sodium Potassium Chloride Carbon Dioxide BUN Creatinine Glucose POC Glucose 213 H 179 H Calcium AST ALT Total Creatine Kinase Albumin Urine Creatinine Urine Chloride Crossmatch
--- NOTE | 2016-11-30 10:04 | Progress Note ---
Assessment and Plan Impression * Acute kidney injury. Most likely contrast nephropathy * Coronary artery disease. Status post angiogram and angioplasty. Patient also has a history of coronary artery bypass surgery * Uncontrolled Hypertension * Cardiomyopathy with an ejection fraction of 40-45% * Anemia Recommendations * Serum creatinine 3.0 and worse today, follow up am lytes * follow up daily lytes * stop hydration,give lasix and albumin * check bladder scan * Her baseline creatinine however is approximately 1.4 * Patient is currently nonoliguric * Her urine shows 2+ dipstick protein and fractional excretion of sodium is 0.13 % * Her hyperkalemia has been corrected * Her acidosis has been corrected as well * Avoid nephrotoxins * remove khan, pt to evaluate and treat * Monitor patient's renal function, fluid status and electrolytes closely * would hold discharge * no emili or arb upon hospital discharge Subjective Date of service: 11/30/16 Principal diagnosis: CAD; Acute Encephalopathy Interval history: resting well in bed today, on acute events Objective - Exam Narrative Exam: General appearance: well-developed, well-nourished, appears stated age EENT: PERRL, mucous membranes moist Neck: no JVD, no thyromegaly, no carotid bruit, supple Respiratory: Present: Decreased Breath Sounds (at the bases) Cardiology: regular, normal heart rate, S1S2, no murmurs Gastrointestinal: normal, normoactive bowel sounds Integumentary: no rash, other (no edema) - Vital Signs Vital signs: Vital Signs - 12hr 11/29/16 11/30/16 11/30/16 23:21 01:09 05:00 Temperature 97.9 F Pulse Rate 66 65 Pulse Rate [ 67 Right Dorsalis Pedis] Respiratory 20 Rate Blood Pressure 117/57 Blood Pressure [Left] Blood Pressure 121/99 [Right Arm] O2 Sat by Pulse 100 Oximetry 11/30/16 11/30/16 11/30/16 05:45 08:00 08:39 Temperature 98.2 F 98.5 F Pulse Rate 84 70 Pulse Rate [ Right Dorsalis Pedis] Respiratory 18 18 Rate Blood Pressure Blood Pressure 111/85 127/62 [Left] Blood Pressure [Right Arm] O2 Sat by Pulse 100 96 Oximetry - Lab 11/29/16 07:18 11/30/16 09:52 Most recent lab results Calcium 8.1 mg/dL (8.4-10.2) L 11/29/16 07:18 Urine Creatinine 295.3 mg/dL (0.1-20.0) H 11/24/16 21:57 Urine Sodium 18 mEq/L 11/24/16 21:57
[2016-11-30 10:44] LABS: BUN/Creatinine Ratio 17.33; Potassium 4.1 mmol/L (3.6-5.0)
[2016-11-30 10:49] LABS: Calcium 8.6 mg/dL (8.4-10.2)
[2016-11-30] MEDS: PROCARDIA XL PO SCH ×2 (11:36→22:37)
[2016-11-30] MEDS: PLAVIX PO SCH (11:37)
[2016-11-30] MEDS: COREG PO SCH ×2 (11:37→22:37)
[2016-11-30] MEDS: HEPARIN SUB-Q SCH ×2 (11:37→22:37)
[2016-11-30] MEDS: ECOTRIN PO SCH (11:37)
[2016-11-30] MEDS: PEPCID PO SCH (11:37)
[2016-11-30] MEDS: IMDUR PO SCH (11:37)
[2016-11-30] MEDS ORDERED: ALBURX 25% (ALBUMIN) IV SCH (12:00)
--- NOTE | 2016-11-30 13:27 | Progress Note ---
Assessment and Plan Altered mental status Head CT shows no acute intracranial process Hyperkalemia -resolved Coronary artery disease with prior CABG Right and LHC findings: moderate to severe elevated left and right heart filling pressures; moderate to severe pulmonary HTN 3 vessel disease ESTRADA to LAD patent SVG x 2 occluded (Diag and OM) subtotal occlusion of proximal segment of SVG to RCA treated with a drug eluting stent EF 40-45% Acute renal failure Acute drop in H&H s/p blood transfusion Ischemic Cardiomyopathy Hypertension Deconditioning Agree with nephrology recommendations. Subjective Date of service: 11/30/16 Principal diagnosis: CAD; Acute Encephalopathy Interval history: Patient resting in bed comfortably. She complains of weakness. Elevation of creatinine at 3.0 today. Underwent PT evaluation this morning. Objective Vital Signs Temp Pulse Pulse Resp BP BP BP 11/30/16 12:00 98.7 F 68 20 122/64 11/30/16 08:39 11/30/16 08:00 98.5 F 70 18 127/62 11/30/16 05:45 98.2 F 84 18 111/85 11/30/16 05:00 65 11/30/16 01:09 97.9 F 67 20 121/99 11/29/16 23:21 66 117/57 11/29/16 21:16 11/29/16 20:05 98.2 F 66 18 117/57 11/29/16 18:30 74 11/29/16 17:00 98.9 F 69 18 127/61 Pulse Ox 11/30/16 12:00 100 11/30/16 08:39 96 11/30/16 08:00 100 11/30/16 05:45 11/30/16 05:00 11/30/16 01:09 100 11/29/16 23:21 11/29/16 21:16 98 11/29/16 20:05 97 11/29/16 18:30 11/29/16 17:00 100 - Physical Examination General: No Apparent Distress HEENT: Positive: PERRL Neck: Positive: trachea midline Cardiac: Positive: Reg Rate and Rhythm Lungs: Positive: Decreased Breath Sounds Neuro: Positive: Grossly Intact, Weakness Extremities: Absent: edema - Labs and Meds Comprehensive Metabolic Panel 11/30/16 Range/Units 09:52 Sodium 137 (137-145) mmol/L Potassium 4.1 (3.6-5.0) mmol/L Chloride 100.0 (98-107) mmol/L Carbon Dioxide 26 (22-30) mmol/L BUN 52 H (7-17) mg/dL Creatinine 3.0 H (0.7-1.2) mg/dL Glucose 156 H (65-100) mg/dL Calcium 8.6 (8.4-10.2) mg/dL
--- NOTE | 2016-11-30 15:41 | Ultrasound Report ---
ULTRASOUND BLADDER RESIDUAL: INDICATION: Renal failure. COMPARISON: None similar. FINDINGS: Sonographic estimation of pre- and postvoid urinary bladder volume performed. Prevoid urinary bladder volume is 114 cubic centimeters. Postvoid urinary bladder volume is 13.6 cubic centimeters. CONCLUSION: Small postvoid residual noted, as described. Please correlate. Thank you for the opportunity to participate in this patient's care.
[2016-11-30] MEDS ORDERED: LASIX IV SCH (18:00)
[2016-11-30] MEDS: MORPHINE IV PRN (18:28)
[2016-11-30] MEDS: LASIX IV SCH (18:28)
--- NOTE | 2016-11-30 19:18 | Progress Note ---
Assessment and Plan Patient awake. Patient says feeling sleepy.. Patient is on nasal canula 4 litres O2 and O2 saturation 93%. BIPAP standby in the room. - Patient Problems (1) PATRIA (acute kidney injury) Current Visit: Yes Status: Acute Plan to address problem: Management as per nephrology. (2) Acute encephalopathy Current Visit: Yes Status: Acute Plan to address problem: Patient says feeling sleepy all the time. (3) Anemia Current Visit: Yes Status: Acute Qualifiers: Anemia type: A Iron deficiency anemia type: I Vitamin B12 deficiency anemia type: V Folate deficiency anemia type: F Bone marrow failure anemia type: B Hemolytic anemia type: H Other causes of anemia: O Chronic kidney disease stage: C Plan to address problem: Management as per primary care. (4) CAD (coronary artery disease) of artery bypass graft Current Visit: Yes Status: Acute Qualifiers: [place] vs. transplanted heart: N Associated angina: A Plan to address problem: Management as per cardiology. (5) Obesity (BMI 30-39.9) Current Visit: Yes Status: Acute Plan to address problem: Weight reduction diet. (6) Sleep apnea Current Visit: Yes Status: Acute Qualifiers: Sleep apnea type: S Plan to address problem: Possible sleep apnea. BIPAP standby in the room. Recommend sleep study as out patient. Subjective Date of service: 11/30/16 Principal diagnosis: CAD; Acute Encephalopathy Interval history: Patient awake. Patient says she is sleepy.. Patient is on nasal canula 4 litres O2 and O2 saturation 93%. BIPAP standby in the room. Objective Vital Signs - 12hr 11/30/16 11/30/16 11/30/16 08:00 08:39 10:00 Temperature 98.5 F Pulse Rate 70 Respiratory 18 22 Rate Blood Pressure 127/62 [Left] O2 Sat by Pulse 100 96 97 Oximetry 11/30/16 11/30/16 11/30/16 12:00 13:00 16:30 Temperature 98.7 F 98.5 F Pulse Rate 68 68 66 Respiratory 20 18 Rate Blood Pressure 122/64 117/61 [Left] O2 Sat by Pulse 100 93 Oximetry 11/30/16 18:28 Temperature Pulse Rate Respiratory 22 Rate Blood Pressure [Left] O2 Sat by Pulse Oximetry Constitutional: no acute distress, other (somnolent) Eyes: non-icteric ENT: oropharynx moist Neck: supple, no lymphadenopathy Effort: normal Ascultation: Bilateral: diminished breath sounds, rales (scant in posterior bases) Cardiovascular: regular rate and rhythm Gastrointestinal: normoactive bowel sounds, soft, non-tender, non-distended Integumentary: normal Extremities: no cyanosis, no edema, pulses normal, no ischemia or petechiae Neurologic: normal mental status, non-focal exam, pupils equal and round, motor strength normal and Psychiatric: depressed CBC and BMP: 11/29/16 07:18 11/30/16 09:52 ABG, PT/INR, D-dimer: ABG POC ABG pH 7.356 (7.35-7.45) 11/25/16 22:20 POC ABG pCO2 38.1 (35-45) 11/25/16 22:20 POC ABG pO2 67 (80-105) L 11/25/16 22:20 POC ABG HCO3 21.3 11/25/16 22:20 POC ABG Total CO2 22 11/25/16 22:20 POC ABG O2 Sat 92 11/25/16 22:20 PT/INR, D-dimer PT 14.5 Sec. (12.2-14.9) 11/22/16 07:20 INR 1.14 (0.87-1.13) H 11/22/16 07:20 Abnormal lab findings: Abnormal Labs 11/22/16 11/22/16 11/22/16 07:20 07:20 07:20 WBC RBC 3.52 L Hgb Hct Plt Count Lymph % (Auto) [place] % (Auto) 11.5 H Lymph # Seg Neutrophils % INR 1.14 H APTT Activated Clotting Time POC ABG pH POC ABG pO2 Sodium Potassium Chloride 108.0 H Carbon Dioxide BUN 25 H Creatinine 1.4 H Glucose POC Glucose Calcium AST ALT Total Creatine Kinase Albumin Urine Creatinine Urine Chloride Crossmatch 11/22/16 11/22/16 11/22/16 07:37 10:46 13:13 WBC RBC Hgb Hct Plt Count Lymph % (Auto) [place] % (Auto) Lymph # Seg Neutrophils % INR APTT 37.7 H Activated Clotting Time 327 H 202 H POC ABG pH POC ABG pO2 Sodium Potassium Chloride Carbon Dioxide BUN Creatinine Glucose POC Glucose Calcium AST ALT Total Creatine Kinase Albumin Urine Creatinine Urine Chloride Crossmatch 11/22/16 11/23/16 11/23/16 14:25 06:49 06:49 WBC 4.1 L RBC 2.74 L Hgb 7.7 L Hct 23.8 L D Plt Count 135 L Lymph % (Auto) [place] % (Auto) 13.8 H Lymph # Seg Neutrophils % INR APTT Activated Clotting Time 175 H POC ABG pH POC ABG pO2 Sodium Potassium Chloride Carbon Dioxide BUN 27 H Creatinine 1.8 H Glucose 137 H POC Glucose Calcium 8.0 L AST ALT Total Creatine Kinase 183 H Albumin Urine Creatinine Urine Chloride Crossmatch 11/23/16 11/23/16 11/23/16 11:07 12:45 17:32 WBC RBC 2.98 L Hgb 8.5 L Hct 26.3 L Plt Count Lymph % (Auto) [place] % (Auto) 13.2 H Lymph # Seg Neutrophils % INR APTT Activated Clotting Time POC ABG pH POC ABG pO2 Sodium Potassium Chloride Carbon Dioxide BUN Creatinine Glucose POC Glucose 134 H 171 H Calcium AST ALT Total Creatine Kinase Albumin Urine Creatinine Urine Chloride Crossmatch 11/23/16 11/24/16 11/24/16 21:24 05:28 05:28 WBC RBC Hgb 8.6 L Hct 26.8 L Plt Count Lymph % (Auto) [place] % (Auto) Lymph # Seg Neutrophils % INR APTT Activated Clotting Time POC ABG pH POC ABG pO2 Sodium Potassium 5.9 H D Chloride Carbon Dioxide 19 L BUN 33 H Creatinine 2.7 H Glucose 162 H POC Glucose 174 H Calcium AST ALT Total Creatine Kinase Albumin Urine Creatinine Urine Chloride Crossmatch 11/24/16 11/24/16 11/24/16 06:23 07:05 07:09 WBC RBC Hgb Hct Plt Count Lymph % (Auto) [place] % (Auto) Lymph # Seg Neutrophils % INR APTT Activated Clotting Time POC ABG pH 7.264 L POC ABG pO2 33 L Sodium Potassium 5.8 H Chloride Carbon Dioxide 20 L BUN 33 H Creatinine 2.8 H Glucose 158 H POC Glucose 209 H Calcium AST 100 H ALT 118 H Total Creatine Kinase Albumin 3.5 L Urine Creatinine Urine Chloride Crossmatch 11/24/16 11/24/16 11/24/16 07:19 08:50 11:45 WBC RBC Hgb Hct Plt Count Lymph % (Auto) [place] % (Auto) Lymph # Seg Neutrophils % INR APTT Activated Clotting Time POC ABG pH 7.285 L POC ABG pO2 64 L Sodium Potassium Chloride Carbon Dioxide BUN Creatinine Glucose POC Glucose 193 H 169 H Calcium AST ALT Total Creatine Kinase Albumin Urine Creatinine Urine Chloride Crossmatch 11/24/16 11/24/16 11/24/16 15:24 15:32 17:14 WBC RBC Hgb Hct Plt Count Lymph % (Auto) [place] % (Auto) Lymph # Seg Neutrophils % INR APTT Activated Clotting Time POC ABG pH POC ABG pO2 Sodium Potassium 5.2 H Chloride Carbon Dioxide 20 L BUN 37 H Creatinine 3.0 H Glucose 144 H POC Glucose 195 H Calcium AST ALT Total Creatine Kinase Albumin Urine Creatinine Urine Chloride Crossmatch See Detail 11/24/16 11/24/16 11/25/16 21:57 23:39 05:30 WBC RBC Hgb Hct Plt Count Lymph % (Auto) [place] % (Auto) Lymph # Seg Neutrophils % INR APTT Activated Clotting Time POC ABG pH POC ABG pO2 Sodium Potassium Chloride Carbon Dioxide BUN Creatinine Glucose POC Glucose 112 H 129 H Calcium AST ALT Total Creatine Kinase Albumin Urine Creatinine 295.3 H Urine Chloride 31.3 L Crossmatch 11/25/16 11/25/16 11/25/16 07:00 07:00 08:40 WBC RBC 3.30 L Hgb 9.5 L Hct 29.0 L Plt Count 119 L Lymph % (Auto) [place] % (Auto) 9.5 H Lymph # Seg Neutrophils % 72.7 H INR APTT Activated Clotting Time POC ABG pH POC ABG pO2 Sodium Potassium Chloride 110.1 H Carbon Dioxide 18 L BUN 38 H Creatinine 2.6 H Glucose 123 H POC Glucose 129 H Calcium 8.2 L AST ALT Total Creatine Kinase Albumin Urine Creatinine Urine Chloride Crossmatch 11/25/16 11/25/16 11/25/16 11:24 12:17 16:16 WBC RBC Hgb Hct Plt Count Lymph % (Auto) [place] % (Auto) Lymph # Seg Neutrophils % INR APTT Activated Clotting Time POC ABG pH 7.327 L POC ABG pO2 Sodium Potassium Chloride Carbon Dioxide BUN Creatinine Glucose POC Glucose 142 H 151 H Calcium AST ALT Total Creatine Kinase Albumin Urine Creatinine Urine Chloride Crossmatch 11/25/16 11/25/16 11/26/16 21:48 22:20 00:58 WBC RBC 3.23 L Hgb 9.2 L Hct 27.9 L Plt Count 119 L Lymph % (Auto) 10.2 L [place] % (Auto) 7.6 H Lymph # 0.8 L Seg Neutrophils % 79.9 H INR APTT Activated Clotting Time POC ABG pH POC ABG pO2 67 L Sodium Potassium Chloride Carbon Dioxide BUN Creatinine Glucose POC Glucose 149 H Calcium AST ALT Total Creatine Kinase Albumin Urine Creatinine Urine Chloride Crossmatch 11/26/16 11/26/16 11/26/16 06:11 07:40 11:28 WBC RBC Hgb Hct Plt Count Lymph % (Auto) [place] % (Auto) Lymph # Seg Neutrophils % INR APTT Activated Clotting Time POC ABG pH POC ABG pO2 Sodium Potassium Chloride Carbon Dioxide 21 L BUN 41 H Creatinine 2.5 H Glucose 151 H POC Glucose 144 H 168 H Calcium 8.1 L AST ALT Total Creatine Kinase Albumin Urine Creatinine Urine Chloride Crossmatch 11/26/16 11/27/16 11/27/16 15:50 00:03 03:45 WBC RBC Hgb Hct Plt Count Lymph % (Auto) [place] % (Auto) Lymph # Seg Neutrophils % INR APTT Activated Clotting Time POC ABG pH POC ABG pO2 Sodium Potassium Chloride Carbon Dioxide BUN 46 H Creatinine 2.8 H Glucose 147 H POC Glucose 153 H 183 H Calcium 8.1 L AST ALT Total Creatine Kinase Albumin Urine Creatinine Urine Chloride Crossmatch 11/27/16 11/27/16 11/27/16 06:26 07:32 11:53 WBC RBC Hgb Hct Plt Count Lymph % (Auto) [place] % (Auto) Lymph # Seg Neutrophils % INR APTT Activated Clotting Time POC ABG pH POC ABG pO2 Sodium Potassium Chloride Carbon Dioxide BUN Creatinine Glucose POC Glucose 208 H 193 H 180 H Calcium AST ALT Total Creatine Kinase Albumin Urine Creatinine Urine Chloride Crossmatch 11/27/16 11/27/16 11/28/16 16:42 21:51 08:13 WBC RBC Hgb Hct Plt Count Lymph % (Auto) [place] % (Auto) Lymph # Seg Neutrophils % INR APTT Activated Clotting Time POC ABG pH POC ABG pO2 Sodium Potassium Chloride Carbon Dioxide BUN Creatinine Glucose POC Glucose 161 H 167 H 151 H Calcium AST ALT Total Creatine Kinase Albumin Urine Creatinine Urine Chloride Crossmatch 11/28/16 11/28/16 11/28/16 10:01 10:01 12:30 WBC RBC Hgb 8.5 L Hct 25.3 L Plt Count Lymph % (Auto) [place] % (Auto) Lymph # Seg Neutrophils % INR APTT Activated Clotting Time POC ABG pH POC ABG pO2 Sodium 136 L Potassium Chloride Carbon Dioxide BUN 50 H Creatinine 2.8 H Glucose 143 H POC Glucose 154 H Calcium 8.1 L AST ALT Total Creatine Kinase Albumin Urine Creatinine Urine Chloride Crossmatch 11/28/16 11/28/16 11/28/16 15:22 16:55 20:40 WBC RBC Hgb Hct Plt Count Lymph % (Auto) [place] % (Auto) Lymph # Seg Neutrophils % INR APTT Activated Clotting Time POC ABG pH POC ABG pO2 Sodium Potassium Chloride Carbon Dioxide BUN Creatinine Glucose POC Glucose 191 H 177 H Calcium AST ALT Total Creatine Kinase Albumin Urine Creatinine Urine Chloride Crossmatch See Detail 11/29/16 11/29/16 11/29/16 07:18 07:18 07:31 WBC RBC Hgb 9.5 L Hct 28.2 L Plt Count Lymph % (Auto) [place] % (Auto) Lymph # Seg Neutrophils % INR APTT Activated Clotting Time POC ABG pH POC ABG pO2 Sodium 136 L Potassium Chloride Carbon Dioxide BUN 51 H Creatinine 2.7 H Glucose 120 H POC Glucose 127 H Calcium 8.1 L AST ALT Total Creatine Kinase Albumin Urine Creatinine Urine Chloride Crossmatch 11/29/16 11/29/16 11/29/16 12:49 17:35 20:31 WBC RBC Hgb Hct Plt Count Lymph % (Auto) [place] % (Auto) Lymph # Seg Neutrophils % INR APTT Activated Clotting Time POC ABG pH POC ABG pO2 Sodium Potassium Chloride Carbon Dioxide BUN Creatinine Glucose POC Glucose 213 H 179 H 154 H Calcium AST ALT Total Creatine Kinase Albumin Urine Creatinine Urine Chloride Crossmatch 11/30/16 11/30/16 11/30/16 08:25 09:52 16:07 WBC RBC Hgb Hct Plt Count Lymph % (Auto) [place] % (Auto) Lymph # Seg Neutrophils % INR APTT Activated Clotting Time POC ABG pH POC ABG pO2 Sodium Potassium Chloride Carbon Dioxide BUN 52 H Creatinine 3.0 H Glucose 156 H POC Glucose 127 H 216 H Calcium AST ALT Total Creatine Kinase Albumin Urine Creatinine Urine Chloride Crossmatch
[2016-11-30] MEDS: ALBURX 25% (ALBUMIN) IV SCH (20:22)
[2016-12-01] MEDS: LASIX IV SCH ×2 (06:22→17:33)
[2016-12-01 09:28] LABS: BUN/Creatinine Ratio 16.66; Calcium 8.7 mg/dL (8.4-10.2); Chloride 99.2 mmol/L (98-107); Potassium 4.1 mmol/L (3.6-5.0)
--- NOTE | 2016-12-01 09:57 | Progress Note ---
Assessment and Plan Altered mental status -resolved Head CT shows no acute intracranial process Volume overload Hyperkalemia -resolved Coronary artery disease with prior CABG Right and LHC findings: moderate to severe elevated left and right heart filling pressures; moderate to severe pulmonary HTN 3 vessel disease ESTRADA to LAD patent SVG x 2 occluded (Diag and OM) subtotal occlusion of proximal segment of SVG to RCA treated with a drug eluting stent EF 40-45% Acute renal failure Acute drop in H&H s/p blood transfusion Ischemic Cardiomyopathy Hypertension Deconditioning Subjective Date of service: 12/01/16 Principal diagnosis: CAD; Acute Encephalopathy Interval history: No interval changes. Objective Vital Signs Temp Pulse Resp BP Pulse Ox 12/01/16 09:44 98.1 F 62 20 125/69 12/01/16 05:00 98.1 F 61 20 132/58 100 12/01/16 04:00 61 12/01/16 00:57 98.4 F 62 20 101/59 100 11/30/16 21:14 95 11/30/16 20:00 98.0 F 65 20 119/63 93 11/30/16 18:28 22 11/30/16 16:30 98.5 F 66 18 117/61 93 11/30/16 13:00 68 11/30/16 12:00 98.7 F 68 20 122/64 100 11/30/16 10:00 22 97 - Physical Examination General: No Apparent Distress Cardiac: Positive: Reg Rate and Rhythm Neuro: Positive: Weakness - Labs and Meds Comprehensive Metabolic Panel 11/30/16 12/01/16 Range/Units 09:52 08:34 Sodium 137 136 L (137-145) mmol/L Potassium 4.1 4.1 (3.6-5.0) mmol/L Chloride 100.0 99.2 (98-107) mmol/L Carbon Dioxide 26 24 (22-30) mmol/L BUN 52 H 50 H (7-17) mg/dL Creatinine 3.0 H 3.0 H (0.7-1.2) mg/dL Glucose 156 H 124 H (65-100) mg/dL Calcium 8.6 8.7 (8.4-10.2) mg/dL
[2016-12-01] MEDS: ECOTRIN PO SCH (10:46)
[2016-12-01] MEDS: IMDUR PO SCH (10:46)
[2016-12-01] MEDS: PEPCID PO SCH (10:46)
[2016-12-01] MEDS: PROCARDIA XL PO SCH ×2 (10:46→22:01)
[2016-12-01] MEDS: PLAVIX PO SCH (10:46)
[2016-12-01] MEDS: COREG PO SCH ×2 (10:46→22:01)
[2016-12-01] MEDS: HEPARIN SUB-Q SCH ×2 (10:47→22:00)
--- NOTE | 2016-12-01 11:22 | Progress Note ---
Assessment and Plan Impression * Acute kidney injury on CKD stage 3, Most likely contrast nephropathy * Coronary artery disease. Status post angiogram and angioplasty. Patient also has a history of coronary artery bypass surgery * Uncontrolled Hypertension * Cardiomyopathy with an ejection fraction of 40-45% * Anemia * anasarca Recommendations * Serum creatinine 3.0 and stable today, follow up am lytes * follow up daily lytes * continue iv lasix and albumin, if refractory may need pulp mixer * check bladder scan * Her baseline creatinine however is approximately 1.4 * Patient is currently nonoliguric * Her urine shows 2+ dipstick protein and fractional excretion of sodium is 0.13 % * Her hyperkalemia has been corrected * Her acidosis has been corrected as well * Avoid nephrotoxins * removed bill, pt to evaluate and treat * Monitor patient's renal function, fluid status and electrolytes closely * no emili or arb upon hospital discharge Subjective Date of service: 12/01/16 Principal diagnosis: CAD; Acute Encephalopathy Interval history: resting well in bed today, on acute events Objective - Exam Narrative Exam: General appearance: well-developed, well-nourished, appears stated age EENT: PERRL, mucous membranes moist Neck: no JVD, no thyromegaly, no carotid bruit, supple Respiratory: Present: Decreased Breath Sounds (at the bases) Cardiology: regular, normal heart rate, S1S2, no murmurs Gastrointestinal: normal, normoactive bowel sounds Integumentary: no rash, other (no edema) - Vital Signs Vital signs: Vital Signs - 12hr 12/01/16 12/01/16 12/01/16 00:57 04:00 05:00 Temperature 98.4 F 98.1 F Pulse Rate 62 61 61 Respiratory 20 20 Rate Blood Pressure Blood Pressure 101/59 132/58 [Left] O2 Sat by Pulse 100 100 Oximetry 12/01/16 12/01/16 09:44 10:46 Temperature 98.1 F Pulse Rate 62 62 Respiratory 20 Rate Blood Pressure 125/69 Blood Pressure 125/69 [Left] O2 Sat by Pulse Oximetry - Lab 11/29/16 07:18 12/01/16 08:34 Most recent lab results Calcium 8.7 mg/dL (8.4-10.2) 12/01/16 08:34 Urine Creatinine 295.3 mg/dL (0.1-20.0) H 11/24/16 21:57 Urine Sodium 18 mEq/L 11/24/16 21:57
[2016-12-01] MEDS ORDERED: CEPHULAC PO PRN (13:00)
[2016-12-01] MEDS: ALBURX 25% (ALBUMIN) IV SCH ×2 (14:58→22:33)
--- NOTE | 2016-12-01 15:56 | Progress Note ---
Assessment and Plan - Patient Problems (1) Acute encephalopathy Current Visit: Yes Status: Acute Plan to address problem: Resolved (2) Anemia Current Visit: Yes Status: Acute Qualifiers: Anemia type: A Iron deficiency anemia type: I Vitamin B12 deficiency anemia type: V Folate deficiency anemia type: F Bone marrow failure anemia type: B Hemolytic anemia type: H Other causes of anemia: O Chronic kidney disease stage: C Plan to address problem: Continue to monitor for bleeding and follow counts (3) CKD (chronic kidney disease) Current Visit: Yes Status: Acute Qualifiers: Chronic kidney disease stage: C Plan to address problem: Continue to avoid nephrotoxic agents, adjust all medications for GFR (4) CAD (coronary artery disease) of artery bypass graft Current Visit: Yes Status: Acute Qualifiers: [place] vs. transplanted heart: N Associated angina: A Plan to address problem: Cardioprotective measures (5) Obesity (BMI 30-39.9) Current Visit: Yes Status: Acute Plan to address problem: Lifestyle modifications, weight loss and exercise Subjective Date of service: 12/01/16 Principal diagnosis: CAD; Acute Encephalopathy Interval history: Seen and examined at bedside; 24 hour events reviewed; nursing and respiratory care staff consulted; no adverse overnight events reported to me; resting in bed ; used BIPAP overnight; states that she feels better; denies acute chest pains or increased SOB On oxygen via nasal cannula Objective - Exam Narrative Exam: General appearance: well-developed, well-nourished, appears stated age EENT: PERRL, mucous membranes moist Neck: no JVD, no thyromegaly, no carotid bruit, supple Respiratory: Present: Decreased Breath Sounds (at the bases) Cardiology: regular, normal heart rate, S1S2, no murmurs Gastrointestinal: normal, normoactive bowel sounds Integumentary: no rash,no edema, no cyanosis Pysch: Appropriate mood Vital Signs - 12hr 12/01/16 12/01/16 12/01/16 04:00 05:00 09:44 Temperature 98.1 F 98.1 F Pulse Rate 61 61 62 Pulse Rate [ Apical] Respiratory 20 20 Rate Blood Pressure Blood Pressure 132/58 125/69 [Left] O2 Sat by Pulse 100 Oximetry 12/01/16 12/01/16 12/01/16 10:00 10:46 12:03 Temperature Pulse Rate 62 63 Pulse Rate [ 63 Apical] Respiratory 22 Rate Blood Pressure 125/69 Blood Pressure [Left] O2 Sat by Pulse 100 Oximetry Constitutional: no acute distress, other (somnolent) Eyes: non-icteric ENT: oropharynx moist Neck: supple, no lymphadenopathy Effort: normal Ascultation: Bilateral: clear, diminished breath sounds, rales (scant in posterior bases) Cardiovascular: regular rate and rhythm Gastrointestinal: normoactive bowel sounds, soft, non-tender, non-distended Integumentary: normal Extremities: no cyanosis, no edema, pulses normal, no ischemia or petechiae Neurologic: normal mental status, non-focal exam, pupils equal and round, motor strength normal and Psychiatric: depressed CBC and BMP: 11/29/16 07:18 12/01/16 08:34 ABG, PT/INR, D-dimer: ABG POC ABG pH 7.356 (7.35-7.45) 11/25/16 22:20 POC ABG pCO2 38.1 (35-45) 11/25/16 22:20 POC ABG pO2 67 (80-105) L 11/25/16 22:20 POC ABG HCO3 21.3 11/25/16 22:20 POC ABG Total CO2 22 11/25/16 22:20 POC ABG O2 Sat 92 11/25/16 22:20 PT/INR, D-dimer PT 14.5 Sec. (12.2-14.9) 11/22/16 07:20 INR 1.14 (0.87-1.13) H 11/22/16 07:20 Abnormal lab findings: Abnormal Labs 11/22/16 11/22/16 11/22/16 07:20 07:20 07:20 WBC RBC 3.52 L Hgb Hct Plt Count Lymph % (Auto) [place] % (Auto) 11.5 H Lymph # Seg Neutrophils % INR 1.14 H APTT Activated Clotting Time POC ABG pH POC ABG pO2 Sodium Potassium Chloride 108.0 H Carbon Dioxide BUN 25 H Creatinine 1.4 H Glucose POC Glucose Calcium AST ALT Total Creatine Kinase Albumin Urine Creatinine Urine Chloride Crossmatch 11/22/16 11/22/16 11/22/16 07:37 10:46 13:13 WBC RBC Hgb Hct Plt Count Lymph % (Auto) [place] % (Auto) Lymph # Seg Neutrophils % INR APTT 37.7 H Activated Clotting Time 327 H 202 H POC ABG pH POC ABG pO2 Sodium Potassium Chloride Carbon Dioxide BUN Creatinine Glucose POC Glucose Calcium AST ALT Total Creatine Kinase Albumin Urine Creatinine Urine Chloride Crossmatch 11/22/16 11/23/16 11/23/16 14:25 06:49 06:49 WBC 4.1 L RBC 2.74 L Hgb 7.7 L Hct 23.8 L D Plt Count 135 L Lymph % (Auto) [place] % (Auto) 13.8 H Lymph # Seg Neutrophils % INR APTT Activated Clotting Time 175 H POC ABG pH POC ABG pO2 Sodium Potassium Chloride Carbon Dioxide BUN 27 H Creatinine 1.8 H Glucose 137 H POC Glucose Calcium 8.0 L AST ALT Total Creatine Kinase 183 H Albumin Urine Creatinine Urine Chloride Crossmatch 11/23/16 11/23/16 11/23/16 11:07 12:45 17:32 WBC RBC 2.98 L Hgb 8.5 L Hct 26.3 L Plt Count Lymph % (Auto) [place] % (Auto) 13.2 H Lymph # Seg Neutrophils % INR APTT Activated Clotting Time POC ABG pH POC ABG pO2 Sodium Potassium Chloride Carbon Dioxide BUN Creatinine Glucose POC Glucose 134 H 171 H Calcium AST ALT Total Creatine Kinase Albumin Urine Creatinine Urine Chloride Crossmatch 11/23/16 11/24/16 11/24/16 21:24 05:28 05:28 WBC RBC Hgb 8.6 L Hct 26.8 L Plt Count Lymph % (Auto) [place] % (Auto) Lymph # Seg Neutrophils % INR APTT Activated Clotting Time POC ABG pH POC ABG pO2 Sodium Potassium 5.9 H D Chloride Carbon Dioxide 19 L BUN 33 H Creatinine 2.7 H Glucose 162 H POC Glucose 174 H Calcium AST ALT Total Creatine Kinase Albumin Urine Creatinine Urine Chloride Crossmatch 11/24/16 11/24/16 11/24/16 06:23 07:05 07:09 WBC RBC Hgb Hct Plt Count Lymph % (Auto) [place] % (Auto) Lymph # Seg Neutrophils % INR APTT Activated Clotting Time POC ABG pH 7.264 L POC ABG pO2 33 L Sodium Potassium 5.8 H Chloride Carbon Dioxide 20 L BUN 33 H Creatinine 2.8 H Glucose 158 H POC Glucose 209 H Calcium AST 100 H ALT 118 H Total Creatine Kinase Albumin 3.5 L Urine Creatinine Urine Chloride Crossmatch 11/24/16 11/24/16 11/24/16 07:19 08:50 11:45 WBC RBC Hgb Hct Plt Count Lymph % (Auto) [place] % (Auto) Lymph # Seg Neutrophils % INR APTT Activated Clotting Time POC ABG pH 7.285 L POC ABG pO2 64 L Sodium Potassium Chloride Carbon Dioxide BUN Creatinine Glucose POC Glucose 193 H 169 H Calcium AST ALT Total Creatine Kinase Albumin Urine Creatinine Urine Chloride Crossmatch 11/24/16 11/24/16 11/24/16 15:24 15:32 17:14 WBC RBC Hgb Hct Plt Count Lymph % (Auto) [place] % (Auto) Lymph # Seg Neutrophils % INR APTT Activated Clotting Time POC ABG pH POC ABG pO2 Sodium Potassium 5.2 H Chloride Carbon Dioxide 20 L BUN 37 H Creatinine 3.0 H Glucose 144 H POC Glucose 195 H Calcium AST ALT Total Creatine Kinase Albumin Urine Creatinine Urine Chloride Crossmatch See Detail 11/24/16 11/24/16 11/25/16 21:57 23:39 05:30 WBC RBC Hgb Hct Plt Count Lymph % (Auto) [place] % (Auto) Lymph # Seg Neutrophils % INR APTT Activated Clotting Time POC ABG pH POC ABG pO2 Sodium Potassium Chloride Carbon Dioxide BUN Creatinine Glucose POC Glucose 112 H 129 H Calcium AST ALT Total Creatine Kinase Albumin Urine Creatinine 295.3 H Urine Chloride 31.3 L Crossmatch 11/25/16 11/25/16 11/25/16 07:00 07:00 08:40 WBC RBC 3.30 L Hgb 9.5 L Hct 29.0 L Plt Count 119 L Lymph % (Auto) [place] % (Auto) 9.5 H Lymph # Seg Neutrophils % 72.7 H INR APTT Activated Clotting Time POC ABG pH POC ABG pO2 Sodium Potassium Chloride 110.1 H Carbon Dioxide 18 L BUN 38 H Creatinine 2.6 H Glucose 123 H POC Glucose 129 H Calcium 8.2 L AST ALT Total Creatine Kinase Albumin Urine Creatinine Urine Chloride Crossmatch 11/25/16 11/25/16 11/25/16 11:24 12:17 16:16 WBC RBC Hgb Hct Plt Count Lymph % (Auto) [place] % (Auto) Lymph # Seg Neutrophils % INR APTT Activated Clotting Time POC ABG pH 7.327 L POC ABG pO2 Sodium Potassium Chloride Carbon Dioxide BUN Creatinine Glucose POC Glucose 142 H 151 H Calcium AST ALT Total Creatine Kinase Albumin Urine Creatinine Urine Chloride Crossmatch 11/25/16 11/25/16 11/26/16 21:48 22:20 00:58 WBC RBC 3.23 L Hgb 9.2 L Hct 27.9 L Plt Count 119 L Lymph % (Auto) 10.2 L [place] % (Auto) 7.6 H Lymph # 0.8 L Seg Neutrophils % 79.9 H INR APTT Activated Clotting Time POC ABG pH POC ABG pO2 67 L Sodium Potassium Chloride Carbon Dioxide BUN Creatinine Glucose POC Glucose 149 H Calcium AST ALT Total Creatine Kinase Albumin Urine Creatinine Urine Chloride Crossmatch 11/26/16 11/26/16 11/26/16 06:11 07:40 11:28 WBC RBC Hgb Hct Plt Count Lymph % (Auto) [place] % (Auto) Lymph # Seg Neutrophils % INR APTT Activated Clotting Time POC ABG pH POC ABG pO2 Sodium Potassium Chloride Carbon Dioxide 21 L BUN 41 H Creatinine 2.5 H Glucose 151 H POC Glucose 144 H 168 H Calcium 8.1 L AST ALT Total Creatine Kinase Albumin Urine Creatinine Urine Chloride Crossmatch 11/26/16 11/27/16 11/27/16 15:50 00:03 03:45 WBC RBC Hgb Hct Plt Count Lymph % (Auto) [place] % (Auto) Lymph # Seg Neutrophils % INR APTT Activated Clotting Time POC ABG pH POC ABG pO2 Sodium Potassium Chloride Carbon Dioxide BUN 46 H Creatinine 2.8 H Glucose 147 H POC Glucose 153 H 183 H Calcium 8.1 L AST ALT Total Creatine Kinase Albumin Urine Creatinine Urine Chloride Crossmatch 11/27/16 11/27/16 11/27/16 06:26 07:32 11:53 WBC RBC Hgb Hct Plt Count Lymph % (Auto) [place] % (Auto) Lymph # Seg Neutrophils % INR APTT Activated Clotting Time POC ABG pH POC ABG pO2 Sodium Potassium Chloride Carbon Dioxide BUN Creatinine Glucose POC Glucose 208 H 193 H 180 H Calcium AST ALT Total Creatine Kinase Albumin Urine Creatinine Urine Chloride Crossmatch 11/27/16 11/27/16 11/28/16 16:42 21:51 08:13 WBC RBC Hgb Hct Plt Count Lymph % (Auto) [place] % (Auto) Lymph # Seg Neutrophils % INR APTT Activated Clotting Time POC ABG pH POC ABG pO2 Sodium Potassium Chloride Carbon Dioxide BUN Creatinine Glucose POC Glucose 161 H 167 H 151 H Calcium AST ALT Total Creatine Kinase Albumin Urine Creatinine Urine Chloride Crossmatch 11/28/16 11/28/16 11/28/16 10:01 10:01 12:30 WBC RBC Hgb 8.5 L Hct 25.3 L Plt Count Lymph % (Auto) [place] % (Auto) Lymph # Seg Neutrophils % INR APTT Activated Clotting Time POC ABG pH POC ABG pO2 Sodium 136 L Potassium Chloride Carbon Dioxide BUN 50 H Creatinine 2.8 H Glucose 143 H POC Glucose 154 H Calcium 8.1 L AST ALT Total Creatine Kinase Albumin Urine Creatinine Urine Chloride Crossmatch 11/28/16 11/28/16 11/28/16 15:22 16:55 20:40 WBC RBC Hgb Hct Plt Count Lymph % (Auto) [place] % (Auto) Lymph # Seg Neutrophils % INR APTT Activated Clotting Time POC ABG pH POC ABG pO2 Sodium Potassium Chloride Carbon Dioxide BUN Creatinine Glucose POC Glucose 191 H 177 H Calcium AST ALT Total Creatine Kinase Albumin Urine Creatinine Urine Chloride Crossmatch See Detail 11/29/16 11/29/16 11/29/16 07:18 07:18 07:31 WBC RBC Hgb 9.5 L Hct 28.2 L Plt Count Lymph % (Auto) [place] % (Auto) Lymph # Seg Neutrophils % INR APTT Activated Clotting Time POC ABG pH POC ABG pO2 Sodium 136 L Potassium Chloride Carbon Dioxide BUN 51 H Creatinine 2.7 H Glucose 120 H POC Glucose 127 H Calcium 8.1 L AST ALT Total Creatine Kinase Albumin Urine Creatinine Urine Chloride Crossmatch 11/29/16 11/29/16 11/29/16 12:49 17:35 20:31 WBC RBC Hgb Hct Plt Count Lymph % (Auto) [place] % (Auto) Lymph # Seg Neutrophils % INR APTT Activated Clotting Time POC ABG pH POC ABG pO2 Sodium Potassium Chloride Carbon Dioxide BUN Creatinine Glucose POC Glucose 213 H 179 H 154 H Calcium AST ALT Total Creatine Kinase Albumin Urine Creatinine Urine Chloride Crossmatch 11/30/16 11/30/16 11/30/16 08:25 09:52 16:07 WBC RBC Hgb Hct Plt Count Lymph % (Auto) [place] % (Auto) Lymph # Seg Neutrophils % INR APTT Activated Clotting Time POC ABG pH POC ABG pO2 Sodium Potassium Chloride Carbon Dioxide BUN 52 H Creatinine 3.0 H Glucose 156 H POC Glucose 127 H 216 H Calcium AST ALT Total Creatine Kinase Albumin Urine Creatinine Urine Chloride Crossmatch 11/30/16 12/01/16 12/01/16 20:45 08:34 11:35 WBC RBC Hgb Hct Plt Count Lymph % (Auto) [place] % (Auto) Lymph # Seg Neutrophils % INR APTT Activated Clotting Time POC ABG pH POC ABG pO2 Sodium 136 L Potassium Chloride Carbon Dioxide BUN 50 H Creatinine 3.0 H Glucose 124 H POC Glucose 197 H 205 H Calcium AST ALT Total Creatine Kinase Albumin Urine Creatinine Urine Chloride Crossmatch
[2016-12-02 06:37] LABS: BUN/Creatinine Ratio 17.77; Chloride 98.9 mmol/L (98-107); Potassium 4.2 mmol/L (3.6-5.0)
[2016-12-02] MEDS: LASIX IV SCH ×2 (06:49→19:24)
--- NOTE | 2016-12-02 09:59 | Progress Note ---
Assessment and Plan Altered mental status -resolved Head CT shows no acute intracranial process Volume overload - improving Hyperkalemia - resolved Coronary artery disease with prior CABG Right and LHC findings: moderate to severe elevated left and right heart filling pressures; moderate to severe pulmonary HTN 3 vessel disease ESTRADA to LAD patent SVG x 2 occluded (Diag and OM) subtotal occlusion of proximal segment of SVG to RCA treated with a drug eluting stent EF 40-45% Acute renal failure - renal function seems to have stabilized Acute drop in H&H s/p blood transfusion Ischemic Cardiomyopathy Hypertension Deconditioning Recommendations: Repeat CBC and BMP in am Continue IV diuresis Continue PT/OT Anticipate discharge in 24-48 hours Subjective Date of service: 12/02/16 Principal diagnosis: CAD; Acute Encephalopathy Interval history: Patient denies chest pain or shortness of breath Objective Vital Signs Temp Pulse Pulse Resp BP BP Pulse Ox 12/02/16 07:03 65 12/02/16 04:00 98.4 F 65 18 133/60 98 12/02/16 02:02 22 12/02/16 00:00 98.3 F 63 18 111/65 98 12/01/16 22:01 65 135/71 12/01/16 22:00 97 12/01/16 20:00 98.1 F 65 18 135/71 97 12/01/16 18:31 98.4 F 64 20 134/51 12/01/16 12:03 63 12/01/16 10:46 62 125/69 12/01/16 10:00 63 22 100 - Physical Examination General: No Apparent Distress HEENT: Positive: PERRL Neck: Positive: trachea midline Cardiac: Positive: Reg Rate and Rhythm Lungs: Positive: Rales Neuro: Positive: Weakness Abdomen: Positive: Soft Incision: Cardiac Cath Site Extremities: Absent: edema - Labs and Meds Comprehensive Metabolic Panel 12/02/16 Range/Units 05:52 Sodium 137 (137-145) mmol/L Potassium 4.2 (3.6-5.0) mmol/L Chloride 98.9 (98-107) mmol/L Carbon Dioxide 22 (22-30) mmol/L BUN 48 H (7-17) mg/dL Creatinine 2.7 H (0.7-1.2) mg/dL Glucose 136 H (65-100) mg/dL Calcium 9.0 (8.4-10.2) mg/dL
[2016-12-02] MEDS: PLAVIX PO SCH (10:08)
[2016-12-02] MEDS: COREG PO SCH ×2 (10:09→22:23)
[2016-12-02] MEDS: IMDUR PO SCH (10:09)
[2016-12-02] MEDS: PROCARDIA XL PO SCH (10:09)
[2016-12-02] MEDS: PEPCID PO SCH (10:10)
[2016-12-02] MEDS: ECOTRIN PO SCH (10:10)
[2016-12-02] MEDS: HEPARIN SUB-Q SCH ×2 (10:10→22:24)
--- NOTE | 2016-12-02 11:12 | Progress Note ---
Assessment and Plan - Patient Problems (1) Acute encephalopathy Current Visit: Yes Status: Acute Plan to address problem: Resolved (2) Anemia Current Visit: Yes Status: Acute Qualifiers: Anemia type: A Iron deficiency anemia type: I Vitamin B12 deficiency anemia type: V Folate deficiency anemia type: F Bone marrow failure anemia type: B Hemolytic anemia type: H Other causes of anemia: O Chronic kidney disease stage: C Plan to address problem: Continue to monitor for bleeding and follow counts (3) CKD (chronic kidney disease) Current Visit: Yes Status: Acute Qualifiers: Chronic kidney disease stage: C Plan to address problem: Continue to avoid nephrotoxic agents, adjust all medications for GFR (4) CAD (coronary artery disease) of artery bypass graft Current Visit: Yes Status: Acute Qualifiers: [place] vs. transplanted heart: N Associated angina: A Plan to address problem: Cardioprotective measures (5) Obesity (BMI 30-39.9) Current Visit: Yes Status: Acute Plan to address problem: Lifestyle modifications, weight loss and exercise Subjective Date of service: 12/02/16 Principal diagnosis: CAD; Acute Encephalopathy Interval history: Seen and examined at bedside; 24 hour events reviewed; nursing and respiratory care staff consulted; no adverse overnight events reported to me; resting in bed ; used BIPAP overnight; states that she feels better; denies acute chest pains or increased SOB On oxygen via nasal cannula Objective - Exam Narrative Exam: General appearance: well-developed, well-nourished, appears stated age Legally blind EENT:, mucous membranes moist Neck: no JVD, no thyromegaly, no carotid bruit, supple Respiratory: Present: Decreased Breath Sounds (at the bases) Cardiology: regular, normal heart rate, S1S2, no murmurs Gastrointestinal: normal, normoactive bowel sounds Integumentary: no rash, other (no edema) Vital Signs - 12hr 12/02/16 12/02/16 12/02/16 00:00 02:02 04:00 Temperature 98.3 F 98.4 F Pulse Rate 63 65 Respiratory 18 22 18 Rate Blood Pressure Blood Pressure 111/65 133/60 [Left] O2 Sat by Pulse 98 98 Oximetry 12/02/16 12/02/16 12/02/16 07:03 10:00 10:09 Temperature 98.3 F Pulse Rate 65 64 65 Respiratory 20 Rate Blood Pressure 133/60 Blood Pressure 120/58 [Left] O2 Sat by Pulse 97 Oximetry Constitutional: no acute distress, other (somnolent) Eyes: non-icteric ENT: oropharynx moist Neck: supple, no lymphadenopathy Effort: normal Ascultation: Bilateral: clear, diminished breath sounds, rales (scant in posterior bases) Cardiovascular: regular rate and rhythm Gastrointestinal: normoactive bowel sounds, soft, non-tender, non-distended Integumentary: normal Extremities: no cyanosis, no edema, pulses normal, no ischemia or petechiae Neurologic: normal mental status, non-focal exam, pupils equal and round, motor strength normal and Psychiatric: depressed CBC and BMP: 12/03/16 05:58 12/03/16 05:58 ABG, PT/INR, D-dimer: ABG POC ABG pH 7.356 (7.35-7.45) 11/25/16 22:20 POC ABG pCO2 38.1 (35-45) 11/25/16 22:20 POC ABG pO2 67 (80-105) L 11/25/16 22:20 POC ABG HCO3 21.3 11/25/16 22:20 POC ABG Total CO2 22 11/25/16 22:20 POC ABG O2 Sat 92 11/25/16 22:20 PT/INR, D-dimer PT 14.5 Sec. (12.2-14.9) 11/22/16 07:20 INR 1.14 (0.87-1.13) H 11/22/16 07:20 Abnormal lab findings: Abnormal Labs 11/22/16 11/22/16 11/22/16 07:20 07:20 07:20 WBC RBC 3.52 L Hgb Hct Plt Count Lymph % (Auto) [place] % (Auto) 11.5 H Lymph # Seg Neutrophils % INR 1.14 H APTT Activated Clotting Time POC ABG pH POC ABG pO2 Sodium Potassium Chloride 108.0 H Carbon Dioxide BUN 25 H Creatinine 1.4 H Glucose POC Glucose Calcium AST ALT Total Creatine Kinase Albumin Urine Creatinine Urine Chloride Crossmatch 11/22/16 11/22/16 11/22/16 07:37 10:46 13:13 WBC RBC Hgb Hct Plt Count Lymph % (Auto) [place] % (Auto) Lymph # Seg Neutrophils % INR APTT 37.7 H Activated Clotting Time 327 H 202 H POC ABG pH POC ABG pO2 Sodium Potassium Chloride Carbon Dioxide BUN Creatinine Glucose POC Glucose Calcium AST ALT Total Creatine Kinase Albumin Urine Creatinine Urine Chloride Crossmatch 11/22/16 11/23/16 11/23/16 14:25 06:49 06:49 WBC 4.1 L RBC 2.74 L Hgb 7.7 L Hct 23.8 L D Plt Count 135 L Lymph % (Auto) [place] % (Auto) 13.8 H Lymph # Seg Neutrophils % INR APTT Activated Clotting Time 175 H POC ABG pH POC ABG pO2 Sodium Potassium Chloride Carbon Dioxide BUN 27 H Creatinine 1.8 H Glucose 137 H POC Glucose Calcium 8.0 L AST ALT Total Creatine Kinase 183 H Albumin Urine Creatinine Urine Chloride Crossmatch 11/23/16 11/23/16 11/23/16 11:07 12:45 17:32 WBC RBC 2.98 L Hgb 8.5 L Hct 26.3 L Plt Count Lymph % (Auto) [place] % (Auto) 13.2 H Lymph # Seg Neutrophils % INR APTT Activated Clotting Time POC ABG pH POC ABG pO2 Sodium Potassium Chloride Carbon Dioxide BUN Creatinine Glucose POC Glucose 134 H 171 H Calcium AST ALT Total Creatine Kinase Albumin Urine Creatinine Urine Chloride Crossmatch 11/23/16 11/24/16 11/24/16 21:24 05:28 05:28 WBC RBC Hgb 8.6 L Hct 26.8 L Plt Count Lymph % (Auto) [place] % (Auto) Lymph # Seg Neutrophils % INR APTT Activated Clotting Time POC ABG pH POC ABG pO2 Sodium Potassium 5.9 H D Chloride Carbon Dioxide 19 L BUN 33 H Creatinine 2.7 H Glucose 162 H POC Glucose 174 H Calcium AST ALT Total Creatine Kinase Albumin Urine Creatinine Urine Chloride Crossmatch 11/24/16 11/24/16 11/24/16 06:23 07:05 07:09 WBC RBC Hgb Hct Plt Count Lymph % (Auto) [place] % (Auto) Lymph # Seg Neutrophils % INR APTT Activated Clotting Time POC ABG pH 7.264 L POC ABG pO2 33 L Sodium Potassium 5.8 H Chloride Carbon Dioxide 20 L BUN 33 H Creatinine 2.8 H Glucose 158 H POC Glucose 209 H Calcium AST 100 H ALT 118 H Total Creatine Kinase Albumin 3.5 L Urine Creatinine Urine Chloride Crossmatch 11/24/16 11/24/16 11/24/16 07:19 08:50 11:45 WBC RBC Hgb Hct Plt Count Lymph % (Auto) [place] % (Auto) Lymph # Seg Neutrophils % INR APTT Activated Clotting Time POC ABG pH 7.285 L POC ABG pO2 64 L Sodium Potassium Chloride Carbon Dioxide BUN Creatinine Glucose POC Glucose 193 H 169 H Calcium AST ALT Total Creatine Kinase Albumin Urine Creatinine Urine Chloride Crossmatch 11/24/16 11/24/16 11/24/16 15:24 15:32 17:14 WBC RBC Hgb Hct Plt Count Lymph % (Auto) [place] % (Auto) Lymph # Seg Neutrophils % INR APTT Activated Clotting Time POC ABG pH POC ABG pO2 Sodium Potassium 5.2 H Chloride Carbon Dioxide 20 L BUN 37 H Creatinine 3.0 H Glucose 144 H POC Glucose 195 H Calcium AST ALT Total Creatine Kinase Albumin Urine Creatinine Urine Chloride Crossmatch See Detail 11/24/16 11/24/16 11/25/16 21:57 23:39 05:30 WBC RBC Hgb Hct Plt Count Lymph % (Auto) [place] % (Auto) Lymph # Seg Neutrophils % INR APTT Activated Clotting Time POC ABG pH POC ABG pO2 Sodium Potassium Chloride Carbon Dioxide BUN Creatinine Glucose POC Glucose 112 H 129 H Calcium AST ALT Total Creatine Kinase Albumin Urine Creatinine 295.3 H Urine Chloride 31.3 L Crossmatch 11/25/16 11/25/16 11/25/16 07:00 07:00 08:40 WBC RBC 3.30 L Hgb 9.5 L Hct 29.0 L Plt Count 119 L Lymph % (Auto) [place] % (Auto) 9.5 H Lymph # Seg Neutrophils % 72.7 H INR APTT Activated Clotting Time POC ABG pH POC ABG pO2 Sodium Potassium Chloride 110.1 H Carbon Dioxide 18 L BUN 38 H Creatinine 2.6 H Glucose 123 H POC Glucose 129 H Calcium 8.2 L AST ALT Total Creatine Kinase Albumin Urine Creatinine Urine Chloride Crossmatch 11/25/16 11/25/16 11/25/16 11:24 12:17 16:16 WBC RBC Hgb Hct Plt Count Lymph % (Auto) [place] % (Auto) Lymph # Seg Neutrophils % INR APTT Activated Clotting Time POC ABG pH 7.327 L POC ABG pO2 Sodium Potassium Chloride Carbon Dioxide BUN Creatinine Glucose POC Glucose 142 H 151 H Calcium AST ALT Total Creatine Kinase Albumin Urine Creatinine Urine Chloride Crossmatch 11/25/16 11/25/16 11/26/16 21:48 22:20 00:58 WBC RBC 3.23 L Hgb 9.2 L Hct 27.9 L Plt Count 119 L Lymph % (Auto) 10.2 L [place] % (Auto) 7.6 H Lymph # 0.8 L Seg Neutrophils % 79.9 H INR APTT Activated Clotting Time POC ABG pH POC ABG pO2 67 L Sodium Potassium Chloride Carbon Dioxide BUN Creatinine Glucose POC Glucose 149 H Calcium AST ALT Total Creatine Kinase Albumin Urine Creatinine Urine Chloride Crossmatch 11/26/16 11/26/16 11/26/16 06:11 07:40 11:28 WBC RBC Hgb Hct Plt Count Lymph % (Auto) [place] % (Auto) Lymph # Seg Neutrophils % INR APTT Activated Clotting Time POC ABG pH POC ABG pO2 Sodium Potassium Chloride Carbon Dioxide 21 L BUN 41 H Creatinine 2.5 H Glucose 151 H POC Glucose 144 H 168 H Calcium 8.1 L AST ALT Total Creatine Kinase Albumin Urine Creatinine Urine Chloride Crossmatch 11/26/16 11/27/16 11/27/16 15:50 00:03 03:45 WBC RBC Hgb Hct Plt Count Lymph % (Auto) [place] % (Auto) Lymph # Seg Neutrophils % INR APTT Activated Clotting Time POC ABG pH POC ABG pO2 Sodium Potassium Chloride Carbon Dioxide BUN 46 H Creatinine 2.8 H Glucose 147 H POC Glucose 153 H 183 H Calcium 8.1 L AST ALT Total Creatine Kinase Albumin Urine Creatinine Urine Chloride Crossmatch 11/27/16 11/27/16 11/27/16 06:26 07:32 11:53 WBC RBC Hgb Hct Plt Count Lymph % (Auto) [place] % (Auto) Lymph # Seg Neutrophils % INR APTT Activated Clotting Time POC ABG pH POC ABG pO2 Sodium Potassium Chloride Carbon Dioxide BUN Creatinine Glucose POC Glucose 208 H 193 H 180 H Calcium AST ALT Total Creatine Kinase Albumin Urine Creatinine Urine Chloride Crossmatch 11/27/16 11/27/16 11/28/16 16:42 21:51 08:13 WBC RBC Hgb Hct Plt Count Lymph % (Auto) [place] % (Auto) Lymph # Seg Neutrophils % INR APTT Activated Clotting Time POC ABG pH POC ABG pO2 Sodium Potassium Chloride Carbon Dioxide BUN Creatinine Glucose POC Glucose 161 H 167 H 151 H Calcium AST ALT Total Creatine Kinase Albumin Urine Creatinine Urine Chloride Crossmatch 11/28/16 11/28/16 11/28/16 10:01 10:01 12:30 WBC RBC Hgb 8.5 L Hct 25.3 L Plt Count Lymph % (Auto) [place] % (Auto) Lymph # Seg Neutrophils % INR APTT Activated Clotting Time POC ABG pH POC ABG pO2 Sodium 136 L Potassium Chloride Carbon Dioxide BUN 50 H Creatinine 2.8 H Glucose 143 H POC Glucose 154 H Calcium 8.1 L AST ALT Total Creatine Kinase Albumin Urine Creatinine Urine Chloride Crossmatch 11/28/16 11/28/16 11/28/16 15:22 16:55 20:40 WBC RBC Hgb Hct Plt Count Lymph % (Auto) [place] % (Auto) Lymph # Seg Neutrophils % INR APTT Activated Clotting Time POC ABG pH POC ABG pO2 Sodium Potassium Chloride Carbon Dioxide BUN Creatinine Glucose POC Glucose 191 H 177 H Calcium AST ALT Total Creatine Kinase Albumin Urine Creatinine Urine Chloride Crossmatch See Detail 11/29/16 11/29/16 11/29/16 07:18 07:18 07:31 WBC RBC Hgb 9.5 L Hct 28.2 L Plt Count Lymph % (Auto) [place] % (Auto) Lymph # Seg Neutrophils % INR APTT Activated Clotting Time POC ABG pH POC ABG pO2 Sodium 136 L Potassium Chloride Carbon Dioxide BUN 51 H Creatinine 2.7 H Glucose 120 H POC Glucose 127 H Calcium 8.1 L AST ALT Total Creatine Kinase Albumin Urine Creatinine Urine Chloride Crossmatch 11/29/16 11/29/16 11/29/16 12:49 17:35 20:31 WBC RBC Hgb Hct Plt Count Lymph % (Auto) [place] % (Auto) Lymph # Seg Neutrophils % INR APTT Activated Clotting Time POC ABG pH POC ABG pO2 Sodium Potassium Chloride Carbon Dioxide BUN Creatinine Glucose POC Glucose 213 H 179 H 154 H Calcium AST ALT Total Creatine Kinase Albumin Urine Creatinine Urine Chloride Crossmatch 11/30/16 11/30/16 11/30/16 08:25 09:52 16:07 WBC RBC Hgb Hct Plt Count Lymph % (Auto) [place] % (Auto) Lymph # Seg Neutrophils % INR APTT Activated Clotting Time POC ABG pH POC ABG pO2 Sodium Potassium Chloride Carbon Dioxide BUN 52 H Creatinine 3.0 H Glucose 156 H POC Glucose 127 H 216 H Calcium AST ALT Total Creatine Kinase Albumin Urine Creatinine Urine Chloride Crossmatch 11/30/16 12/01/16 12/01/16 20:45 08:34 08:48 WBC RBC Hgb Hct Plt Count Lymph % (Auto) [place] % (Auto) Lymph # Seg Neutrophils % INR APTT Activated Clotting Time POC ABG pH POC ABG pO2 Sodium 136 L Potassium Chloride Carbon Dioxide BUN 50 H Creatinine 3.0 H Glucose 124 H POC Glucose 197 H 136 H Calcium AST ALT Total Creatine Kinase Albumin Urine Creatinine Urine Chloride Crossmatch 12/01/16 12/01/16 12/02/16 11:35 22:08 05:52 WBC RBC Hgb Hct Plt Count Lymph % (Auto) [place] % (Auto) Lymph # Seg Neutrophils % INR APTT Activated Clotting Time POC ABG pH POC ABG pO2 Sodium Potassium Chloride Carbon Dioxide BUN 48 H Creatinine 2.7 H Glucose 136 H POC Glucose 205 H 157 H Calcium AST ALT Total Creatine Kinase Albumin Urine Creatinine Urine Chloride Crossmatch
--- NOTE | 2016-12-02 11:31 | Progress Note ---
Assessment and Plan Impression * Acute kidney injury on CKD stage 3, Most likely contrast nephropathy * Coronary artery disease. Status post angiogram and angioplasty. Patient also has a history of coronary artery bypass surgery * Uncontrolled Hypertension * Cardiomyopathy with an ejection fraction of 40-45% * Anemia * anasarca Recommendations * Serum creatinine 2.7 and better today, follow up am lytes * follow up daily lytes * continue iv lasix and albumin * check bladder scan * Her baseline creatinine however is approximately 1.4 * Patient is currently nonoliguric * Her urine shows 2+ dipstick protein and fractional excretion of sodium is 0.13 % * Her hyperkalemia has been corrected * Her acidosis has been corrected as well * Avoid nephrotoxins * pt to evaluate and treat * Monitor patient's renal function, fluid status and electrolytes closely * no emili or arb upon hospital discharge * likely ready for dc in next 24 to 48 hrs Subjective Date of service: 12/02/16 Principal diagnosis: CAD; Acute Encephalopathy Interval history: resting well in bed today, on acute events Objective - Exam Narrative Exam: General appearance: well-developed, well-nourished, appears stated age EENT: PERRL, mucous membranes moist Neck: no JVD, no thyromegaly, no carotid bruit, supple Respiratory: Present: Decreased Breath Sounds (at the bases) Cardiology: regular, normal heart rate, S1S2, no murmurs Gastrointestinal: normal, normoactive bowel sounds Integumentary: no rash, other (no edema) - Vital Signs Vital signs: Vital Signs - 12hr 12/02/16 12/02/16 12/02/16 00:00 02:02 04:00 Temperature 98.3 F 98.4 F Pulse Rate 63 65 Respiratory 18 22 18 Rate Blood Pressure Blood Pressure 111/65 133/60 [Left] O2 Sat by Pulse 98 98 Oximetry 12/02/16 12/02/16 12/02/16 07:03 10:00 10:09 Temperature 98.3 F Pulse Rate 65 64 65 Respiratory 20 Rate Blood Pressure 133/60 Blood Pressure 120/58 [Left] O2 Sat by Pulse 97 Oximetry - Lab 11/29/16 07:18 12/02/16 05:52 Most recent lab results Calcium 9.0 mg/dL (8.4-10.2) 12/02/16 05:52 Urine Creatinine 295.3 mg/dL (0.1-20.0) H 11/24/16 21:57 Urine Sodium 18 mEq/L 11/24/16 21:57
[2016-12-02] MEDS: ALBURX 25% (ALBUMIN) IV SCH (12:19)
[2016-12-03] MEDS: ALBURX 25% (ALBUMIN) IV SCH ×3 (04:23→23:30)
[2016-12-03] MEDS: PROCARDIA XL PO SCH ×3 (04:25→21:59)
[2016-12-03] MEDS: CEPHULAC PO PRN (04:26)
[2016-12-03 06:23] LABS: Hematocrit 29.4 % (30.3-42.9); Hemoglobin 9.7 gm/dl (10.1-14.3); Mean Corpuscular HGB Conc 33 % (30-34); Mean Corpuscular Hemoglobin 29 pg (28-32); Mean Corpuscular Volume 87 fl (79-97); Platelet Count 173 K/mm3 (140-440); Red Blood Count 3.37 M/mm3 (3.65-5.03); Red Cell Distribution Width 13.9 % (13.2-15.2); White Blood Count 4.2 K/mm3 (4.5-11.0)
[2016-12-03 06:33] LABS: BUN/Creatinine Ratio 17.4; Calcium 9.2 mg/dL (8.4-10.2); Chloride 98.8 mmol/L (98-107); Potassium 4.1 mmol/L (3.6-5.0)
--- NOTE | 2016-12-03 09:09 | Progress Note ---
Assessment and Plan - Patient Problems (1) Acute encephalopathy Current Visit: Yes Status: Acute Plan to address problem: Resolved (2) Anemia Current Visit: Yes Status: Acute Qualifiers: Anemia type: A Iron deficiency anemia type: I Vitamin B12 deficiency anemia type: V Folate deficiency anemia type: F Bone marrow failure anemia type: B Hemolytic anemia type: H Other causes of anemia: O Chronic kidney disease stage: C Plan to address problem: Continue to monitor for bleeding and follow counts (3) CKD (chronic kidney disease) Current Visit: Yes Status: Acute Qualifiers: Chronic kidney disease stage: C Plan to address problem: Continue to avoid nephrotoxic agents, adjust all medications for GFR (4) CAD (coronary artery disease) of artery bypass graft Current Visit: Yes Status: Acute Qualifiers: [place] vs. transplanted heart: N Associated angina: A Plan to address problem: Cardioprotective measures (5) Obesity (BMI 30-39.9) Current Visit: Yes Status: Acute Plan to address problem: Lifestyle modifications, weight loss and exercise Subjective Date of service: 12/03/16 Principal diagnosis: CAD; Acute Encephalopathy Interval history: Seen and examined at bedside; 24 hour events reviewed; nursing and respiratory care staff consulted; no adverse overnight events reported to me; resting in bed ;did not use BIPAP overnight; states that she feels better; denies acute chest pains or increased SOB On oxygen via nasal cannula Objective - Exam Narrative Exam: General appearance: well-developed, well-nourished, appears stated age Legally blind EENT:, mucous membranes moist Neck: no JVD, no thyromegaly, no carotid bruit, supple Respiratory: Present: Decreased Breath Sounds (at the bases),CTA Post strnotomy scar Cardiology: regular, normal heart rate, S1S2, no murmurs Gastrointestinal: normal, normoactive bowel sounds, NT, ND Integumentary: no rash, other (no edema) Neuro: Non-focal Vital Signs - 12hr 12/02/16 12/03/16 12/03/16 22:23 00:30 04:00 Temperature 98.4 F 97.7 F Pulse Rate 68 Pulse Rate [ 64 63 Apical] Pulse Rate [ 20 L 63 From Monitor] Respiratory 20 20 Rate Blood Pressure 139/72 Blood Pressure 127/59 111/56 [Right Arm] O2 Sat by Pulse 98 97 Oximetry 12/03/16 05:41 Temperature Pulse Rate 68 Pulse Rate [ Apical] Pulse Rate [ From Monitor] Respiratory Rate Blood Pressure Blood Pressure [Right Arm] O2 Sat by Pulse Oximetry Constitutional: no acute distress, other (somnolent) Eyes: non-icteric ENT: oropharynx moist Neck: supple, no lymphadenopathy Effort: normal Ascultation: Bilateral: clear, diminished breath sounds, rales (scant in posterior bases) Cardiovascular: regular rate and rhythm Gastrointestinal: normoactive bowel sounds, soft, non-tender, non-distended Integumentary: normal Extremities: no cyanosis, no edema, pulses normal, no ischemia or petechiae Neurologic: normal mental status, non-focal exam, pupils equal and round, motor strength normal and Psychiatric: depressed CBC and BMP: 12/03/16 05:58 12/03/16 05:58 ABG, PT/INR, D-dimer: ABG POC ABG pH 7.356 (7.35-7.45) 11/25/16 22:20 POC ABG pCO2 38.1 (35-45) 11/25/16 22:20 POC ABG pO2 67 (80-105) L 11/25/16 22:20 POC ABG HCO3 21.3 11/25/16 22:20 POC ABG Total CO2 22 11/25/16 22:20 POC ABG O2 Sat 92 11/25/16 22:20 PT/INR, D-dimer PT 14.5 Sec. (12.2-14.9) 11/22/16 07:20 INR 1.14 (0.87-1.13) H 11/22/16 07:20 Abnormal lab findings: Abnormal Labs 11/22/16 11/22/16 11/22/16 07:20 07:20 07:20 WBC RBC 3.52 L Hgb Hct Plt Count Lymph % (Auto) Bureau % (Auto) 11.5 H Lymph # Seg Neutrophils % INR 1.14 H APTT Activated Clotting Time POC ABG pH POC ABG pO2 Sodium Potassium Chloride 108.0 H Carbon Dioxide BUN 25 H Creatinine 1.4 H Glucose POC Glucose Calcium AST ALT Total Creatine Kinase Albumin Urine Creatinine Urine Chloride Crossmatch 11/22/16 11/22/16 11/22/16 07:37 10:46 13:13 WBC RBC Hgb Hct Plt Count Lymph % (Auto) Bureau % (Auto) Lymph # Seg Neutrophils % INR APTT 37.7 H Activated Clotting Time 327 H 202 H POC ABG pH POC ABG pO2 Sodium Potassium Chloride Carbon Dioxide BUN Creatinine Glucose POC Glucose Calcium AST ALT Total Creatine Kinase Albumin Urine Creatinine Urine Chloride Crossmatch 11/22/16 11/23/16 11/23/16 14:25 06:49 06:49 WBC 4.1 L RBC 2.74 L Hgb 7.7 L Hct 23.8 L D Plt Count 135 L Lymph % (Auto) Bureau % (Auto) 13.8 H Lymph # Seg Neutrophils % INR APTT Activated Clotting Time 175 H POC ABG pH POC ABG pO2 Sodium Potassium Chloride Carbon Dioxide BUN 27 H Creatinine 1.8 H Glucose 137 H POC Glucose Calcium 8.0 L AST ALT Total Creatine Kinase 183 H Albumin Urine Creatinine Urine Chloride Crossmatch 11/23/16 11/23/16 11/23/16 11:07 12:45 17:32 WBC RBC 2.98 L Hgb 8.5 L Hct 26.3 L Plt Count Lymph % (Auto) Bureau % (Auto) 13.2 H Lymph # Seg Neutrophils % INR APTT Activated Clotting Time POC ABG pH POC ABG pO2 Sodium Potassium Chloride Carbon Dioxide BUN Creatinine Glucose POC Glucose 134 H 171 H Calcium AST ALT Total Creatine Kinase Albumin Urine Creatinine Urine Chloride Crossmatch 11/23/16 11/24/16 11/24/16 21:24 05:28 05:28 WBC RBC Hgb 8.6 L Hct 26.8 L Plt Count Lymph % (Auto) Bureau % (Auto) Lymph # Seg Neutrophils % INR APTT Activated Clotting Time POC ABG pH POC ABG pO2 Sodium Potassium 5.9 H D Chloride Carbon Dioxide 19 L BUN 33 H Creatinine 2.7 H Glucose 162 H POC Glucose 174 H Calcium AST ALT Total Creatine Kinase Albumin Urine Creatinine Urine Chloride Crossmatch 11/24/16 11/24/16 11/24/16 06:23 07:05 07:09 WBC RBC Hgb Hct Plt Count Lymph % (Auto) Bureau % (Auto) Lymph # Seg Neutrophils % INR APTT Activated Clotting Time POC ABG pH 7.264 L POC ABG pO2 33 L Sodium Potassium 5.8 H Chloride Carbon Dioxide 20 L BUN 33 H Creatinine 2.8 H Glucose 158 H POC Glucose 209 H Calcium AST 100 H ALT 118 H Total Creatine Kinase Albumin 3.5 L Urine Creatinine Urine Chloride Crossmatch 11/24/16 11/24/16 11/24/16 07:19 08:50 11:45 WBC RBC Hgb Hct Plt Count Lymph % (Auto) Bureau % (Auto) Lymph # Seg Neutrophils % INR APTT Activated Clotting Time POC ABG pH 7.285 L POC ABG pO2 64 L Sodium Potassium Chloride Carbon Dioxide BUN Creatinine Glucose POC Glucose 193 H 169 H Calcium AST ALT Total Creatine Kinase Albumin Urine Creatinine Urine Chloride Crossmatch 11/24/16 11/24/16 11/24/16 15:24 15:32 17:14 WBC RBC Hgb Hct Plt Count Lymph % (Auto) Bureau % (Auto) Lymph # Seg Neutrophils % INR APTT Activated Clotting Time POC ABG pH POC ABG pO2 Sodium Potassium 5.2 H Chloride Carbon Dioxide 20 L BUN 37 H Creatinine 3.0 H Glucose 144 H POC Glucose 195 H Calcium AST ALT Total Creatine Kinase Albumin Urine Creatinine Urine Chloride Crossmatch See Detail 11/24/16 11/24/16 11/25/16 21:57 23:39 05:30 WBC RBC Hgb Hct Plt Count Lymph % (Auto) Bureau % (Auto) Lymph # Seg Neutrophils % INR APTT Activated Clotting Time POC ABG pH POC ABG pO2 Sodium Potassium Chloride Carbon Dioxide BUN Creatinine Glucose POC Glucose 112 H 129 H Calcium AST ALT Total Creatine Kinase Albumin Urine Creatinine 295.3 H Urine Chloride 31.3 L Crossmatch 11/25/16 11/25/16 11/25/16 07:00 07:00 08:40 WBC RBC 3.30 L Hgb 9.5 L Hct 29.0 L Plt Count 119 L Lymph % (Auto) Bureau % (Auto) 9.5 H Lymph # Seg Neutrophils % 72.7 H INR APTT Activated Clotting Time POC ABG pH POC ABG pO2 Sodium Potassium Chloride 110.1 H Carbon Dioxide 18 L BUN 38 H Creatinine 2.6 H Glucose 123 H POC Glucose 129 H Calcium 8.2 L AST ALT Total Creatine Kinase Albumin Urine Creatinine Urine Chloride Crossmatch 11/25/16 11/25/16 11/25/16 11:24 12:17 16:16 WBC RBC Hgb Hct Plt Count Lymph % (Auto) Bureau % (Auto) Lymph # Seg Neutrophils % INR APTT Activated Clotting Time POC ABG pH 7.327 L POC ABG pO2 Sodium Potassium Chloride Carbon Dioxide BUN Creatinine Glucose POC Glucose 142 H 151 H Calcium AST ALT Total Creatine Kinase Albumin Urine Creatinine Urine Chloride Crossmatch 11/25/16 11/25/16 11/26/16 21:48 22:20 00:58 WBC RBC 3.23 L Hgb 9.2 L Hct 27.9 L Plt Count 119 L Lymph % (Auto) 10.2 L Bureau % (Auto) 7.6 H Lymph # 0.8 L Seg Neutrophils % 79.9 H INR APTT Activated Clotting Time POC ABG pH POC ABG pO2 67 L Sodium Potassium Chloride Carbon Dioxide BUN Creatinine Glucose POC Glucose 149 H Calcium AST ALT Total Creatine Kinase Albumin Urine Creatinine Urine Chloride Crossmatch 11/26/16 11/26/16 11/26/16 06:11 07:40 11:28 WBC RBC Hgb Hct Plt Count Lymph % (Auto) Bureau % (Auto) Lymph # Seg Neutrophils % INR APTT Activated Clotting Time POC ABG pH POC ABG pO2 Sodium Potassium Chloride Carbon Dioxide 21 L BUN 41 H Creatinine 2.5 H Glucose 151 H POC Glucose 144 H 168 H Calcium 8.1 L AST ALT Total Creatine Kinase Albumin Urine Creatinine Urine Chloride Crossmatch 11/26/16 11/27/16 11/27/16 15:50 00:03 03:45 WBC RBC Hgb Hct Plt Count Lymph % (Auto) Bureau % (Auto) Lymph # Seg Neutrophils % INR APTT Activated Clotting Time POC ABG pH POC ABG pO2 Sodium Potassium Chloride Carbon Dioxide BUN 46 H Creatinine 2.8 H Glucose 147 H POC Glucose 153 H 183 H Calcium 8.1 L AST ALT Total Creatine Kinase Albumin Urine Creatinine Urine Chloride Crossmatch 11/27/16 11/27/16 11/27/16 06:26 07:32 11:53 WBC RBC Hgb Hct Plt Count Lymph % (Auto) Bureau % (Auto) Lymph # Seg Neutrophils % INR APTT Activated Clotting Time POC ABG pH POC ABG pO2 Sodium Potassium Chloride Carbon Dioxide BUN Creatinine Glucose POC Glucose 208 H 193 H 180 H Calcium AST ALT Total Creatine Kinase Albumin Urine Creatinine Urine Chloride Crossmatch 11/27/16 11/27/16 11/28/16 16:42 21:51 08:13 WBC RBC Hgb Hct Plt Count Lymph % (Auto) Bureau % (Auto) Lymph # Seg Neutrophils % INR APTT Activated Clotting Time POC ABG pH POC ABG pO2 Sodium Potassium Chloride Carbon Dioxide BUN Creatinine Glucose POC Glucose 161 H 167 H 151 H Calcium AST ALT Total Creatine Kinase Albumin Urine Creatinine Urine Chloride Crossmatch 11/28/16 11/28/16 11/28/16 10:01 10:01 12:30 WBC RBC Hgb 8.5 L Hct 25.3 L Plt Count Lymph % (Auto) Bureau % (Auto) Lymph # Seg Neutrophils % INR APTT Activated Clotting Time POC ABG pH POC ABG pO2 Sodium 136 L Potassium Chloride Carbon Dioxide BUN 50 H Creatinine 2.8 H Glucose 143 H POC Glucose 154 H Calcium 8.1 L AST ALT Total Creatine Kinase Albumin Urine Creatinine Urine Chloride Crossmatch 11/28/16 11/28/16 11/28/16 15:22 16:55 20:40 WBC RBC Hgb Hct Plt Count Lymph % (Auto) Bureau % (Auto) Lymph # Seg Neutrophils % INR APTT Activated Clotting Time POC ABG pH POC ABG pO2 Sodium Potassium Chloride Carbon Dioxide BUN Creatinine Glucose POC Glucose 191 H 177 H Calcium AST ALT Total Creatine Kinase Albumin Urine Creatinine Urine Chloride Crossmatch See Detail 11/29/16 11/29/16 11/29/16 07:18 07:18 07:31 WBC RBC Hgb 9.5 L Hct 28.2 L Plt Count Lymph % (Auto) Bureau % (Auto) Lymph # Seg Neutrophils % INR APTT Activated Clotting Time POC ABG pH POC ABG pO2 Sodium 136 L Potassium Chloride Carbon Dioxide BUN 51 H Creatinine 2.7 H Glucose 120 H POC Glucose 127 H Calcium 8.1 L AST ALT Total Creatine Kinase Albumin Urine Creatinine Urine Chloride Crossmatch 11/29/16 11/29/16 11/29/16 12:49 17:35 20:31 WBC RBC Hgb Hct Plt Count Lymph % (Auto) Bureau % (Auto) Lymph # Seg Neutrophils % INR APTT Activated Clotting Time POC ABG pH POC ABG pO2 Sodium Potassium Chloride Carbon Dioxide BUN Creatinine Glucose POC Glucose 213 H 179 H 154 H Calcium AST ALT Total Creatine Kinase Albumin Urine Creatinine Urine Chloride Crossmatch 11/30/16 11/30/16 11/30/16 08:25 09:52 16:07 WBC RBC Hgb Hct Plt Count Lymph % (Auto) Bureau % (Auto) Lymph # Seg Neutrophils % INR APTT Activated Clotting Time POC ABG pH POC ABG pO2 Sodium Potassium Chloride Carbon Dioxide BUN 52 H Creatinine 3.0 H Glucose 156 H POC Glucose 127 H 216 H Calcium AST ALT Total Creatine Kinase Albumin Urine Creatinine Urine Chloride Crossmatch 11/30/16 12/01/16 12/01/16 20:45 08:34 08:48 WBC RBC Hgb Hct Plt Count Lymph % (Auto) Bureau % (Auto) Lymph # Seg Neutrophils % INR APTT Activated Clotting Time POC ABG pH POC ABG pO2 Sodium 136 L Potassium Chloride Carbon Dioxide BUN 50 H Creatinine 3.0 H Glucose 124 H POC Glucose 197 H 136 H Calcium AST ALT Total Creatine Kinase Albumin Urine Creatinine Urine Chloride Crossmatch 12/01/16 12/01/16 12/01/16 11:35 16:56 22:08 WBC RBC Hgb Hct Plt Count Lymph % (Auto) Bureau % (Auto) Lymph # Seg Neutrophils % INR APTT Activated Clotting Time POC ABG pH POC ABG pO2 Sodium Potassium Chloride Carbon Dioxide BUN Creatinine Glucose POC Glucose 205 H 210 H 157 H Calcium AST ALT Total Creatine Kinase Albumin Urine Creatinine Urine Chloride Crossmatch 12/02/16 12/02/16 12/02/16 05:52 08:47 15:16 WBC RBC Hgb Hct Plt Count Lymph % (Auto) Bureau % (Auto) Lymph # Seg Neutrophils % INR APTT Activated Clotting Time POC ABG pH POC ABG pO2 Sodium Potassium Chloride Carbon Dioxide BUN 48 H Creatinine 2.7 H Glucose 136 H POC Glucose 134 H 226 H Calcium AST ALT Total Creatine Kinase Albumin Urine Creatinine Urine Chloride Crossmatch 12/02/16 12/03/16 12/03/16 22:53 05:58 05:58 WBC 4.2 L RBC 3.37 L Hgb 9.7 L Hct 29.4 L Plt Count Lymph % (Auto) Bureau % (Auto) Lymph # Seg Neutrophils % INR APTT Activated Clotting Time POC ABG pH POC ABG pO2 Sodium Potassium Chloride Carbon Dioxide BUN 47 H Creatinine 2.7 H Glucose 142 H POC Glucose 235 H Calcium AST ALT Total Creatine Kinase Albumin Urine Creatinine Urine Chloride Crossmatch
--- NOTE | 2016-12-03 10:02 | Progress Note ---
Assessment and Plan Impression * Acute kidney injury on CKD stage 3, Most likely contrast nephropathy * Coronary artery disease. Status post angiogram and angioplasty. Patient also has a history of coronary artery bypass surgery * Uncontrolled Hypertension * Cardiomyopathy with an ejection fraction of 40-45% * Anemia * anasarca Recommendations * Serum creatinine 2.7 and stable today, follow up am lytes * follow up daily lytes * continue diuresis as an outpatient * Her baseline creatinine however is approximately 1.4 * Patient is currently nonoliguric * Her urine shows 2+ dipstick protein and fractional excretion of sodium is 0.13 % * Her hyperkalemia has been corrected * Her acidosis has been corrected as well * Avoid nephrotoxins * pt to evaluate and treat * Monitor patient's renal function, fluid status and electrolytes closely * no emili or arb upon hospital discharge * likely ready for dc today, home with po diuretics and follow up office one week Subjective Date of service: 12/03/16 Principal diagnosis: CAD; Acute Encephalopathy Interval history: resting well in bed today, on acute events Objective - Exam Narrative Exam: General appearance: well-developed, well-nourished, appears stated age EENT: PERRL, mucous membranes moist Neck: no JVD, no thyromegaly, no carotid bruit, supple Respiratory: Present: Decreased Breath Sounds (at the bases) Cardiology: regular, normal heart rate, S1S2, no murmurs Gastrointestinal: normal, normoactive bowel sounds Integumentary: no rash, other (no edema) - Vital Signs Vital signs: Vital Signs - 12hr 12/02/16 12/03/16 12/03/16 22:23 00:30 04:00 Temperature 98.4 F 97.7 F Pulse Rate 68 Pulse Rate [ 64 63 Apical] Pulse Rate [ 20 L 63 From Monitor] Respiratory 20 20 Rate Blood Pressure 139/72 Blood Pressure 127/59 111/56 [Right Arm] O2 Sat by Pulse 98 97 Oximetry 12/03/16 05:41 Temperature Pulse Rate 68 Pulse Rate [ Apical] Pulse Rate [ From Monitor] Respiratory Rate Blood Pressure Blood Pressure [Right Arm] O2 Sat by Pulse Oximetry - Lab 12/03/16 05:58 12/03/16 05:58 Most recent lab results Calcium 9.2 mg/dL (8.4-10.2) 12/03/16 05:58 Urine Creatinine 295.3 mg/dL (0.1-20.0) H 11/24/16 21:57 Urine Sodium 18 mEq/L 11/24/16 21:57
[2016-12-03] MEDS: COREG PO SCH ×2 (10:37→21:58)
[2016-12-03] MEDS: ECOTRIN PO SCH (10:38)
[2016-12-03] MEDS: HEPARIN SUB-Q SCH ×2 (10:39→21:59)
[2016-12-03] MEDS: IMDUR PO SCH (10:40)
[2016-12-03] MEDS: PEPCID PO SCH (10:40)
[2016-12-03] MEDS: PLAVIX PO SCH (10:41)
--- NOTE | 2016-12-03 11:15 | Progress Note ---
Assessment and Plan 1. Arthrosclerotic heart disease status post CABG. 2. Status post cardiac cath and stenting SVG with a drug-eluting stent 3. Status post acute renal failure probably secondary to contrast nephropathy 4. Ischemic cardiomyopathy LV ejection fraction of 40% 5. Essential hypertension 6. Anemia 7. Legally blind Plan. Cardiac-cross stable continue present management Subjective Date of service: 12/03/16 Principal diagnosis: CAD; Acute Encephalopathy Interval history: No cardiac symptoms. Objective Vital Signs Temp Pulse Pulse Pulse Resp BP BP 12/03/16 10:40 82 102/61 12/03/16 10:37 82 102/61 12/03/16 07:40 98.5 F 63 63 14 102/61 12/03/16 05:41 68 12/03/16 04:00 97.7 F 63 63 20 111/56 12/03/16 00:30 98.4 F 64 20 L 20 127/59 12/02/16 22:23 68 139/72 12/02/16 20:00 97.9 F 62 62 20 115/58 12/02/16 16:00 98.2 F 64 64 18 118/59 12/02/16 12:00 98.6 F 64 64 18 142/60 Pulse Ox 12/03/16 10:40 12/03/16 10:37 12/03/16 07:40 82 L 12/03/16 05:41 12/03/16 04:00 97 12/03/16 00:30 98 12/02/16 22:23 12/02/16 20:00 96 12/02/16 16:00 97 12/02/16 12:00 93 - Physical Examination General: No Apparent Distress HEENT: Positive: PERRL Neck: Positive: neck supple, trachea midline. Negative: JVD/HJR Cardiac: Positive: Regular Rate, S1/S2, PMI, Laterally Displaced Lungs: Positive: clear to auscultation, No Wheeze, Rales, Rhonchi Neuro: Positive: Motor Function Intact, Weakness, No Lateralizing Findings Abdomen: Positive: Soft Incision: Cardiac Cath Site Extremities: Absent: edema - Labs and Meds CBC 12/03/16 Range/Units 05:58 WBC 4.2 L (4.5-11.0) K/mm3 RBC 3.37 L (3.65-5.03) M/mm3 Hgb 9.7 L (10.1-14.3) gm/dl Hct 29.4 L (30.3-42.9) % Plt Count 173 (140-440) K/mm3 Comprehensive Metabolic Panel 12/03/16 Range/Units 05:58 Sodium 139 (137-145) mmol/L Potassium 4.1 (3.6-5.0) mmol/L Chloride 98.8 (98-107) mmol/L Carbon Dioxide 23 (22-30) mmol/L BUN 47 H (7-17) mg/dL Creatinine 2.7 H (0.7-1.2) mg/dL Glucose 142 H (65-100) mg/dL Calcium 9.2 (8.4-10.2) mg/dL
[2016-12-03] MEDS: LASIX IV SCH (17:16)
[2016-12-03] MEDS ORDERED: CITRATE OF MAGNESIA PO ONE ×2 (19:15→21:00)
[2016-12-04] MEDS: LASIX IV SCH ×2 (06:54→18:21)
[2016-12-04] MEDS ORDERED: FLEET PR ONE (09:26)
[2016-12-04] MEDS: ALBURX 25% (ALBUMIN) IV SCH ×2 (09:59→23:06)
[2016-12-04] MEDS: COREG PO SCH ×2 (09:59→22:16)
[2016-12-04] MEDS: ECOTRIN PO SCH (10:00)
[2016-12-04] MEDS: IMDUR PO SCH (10:00)
[2016-12-04] MEDS: PEPCID PO SCH (10:00)
[2016-12-04] MEDS: HEPARIN SUB-Q SCH ×2 (10:00→22:15)
[2016-12-04] MEDS: PROCARDIA XL PO SCH ×2 (10:00→22:16)
[2016-12-04] MEDS: PLAVIX PO SCH (10:00)
--- NOTE | 2016-12-04 10:45 | Progress Note ---
Assessment and Plan 1. Arthrosclerotic heart disease status post CABG. 2. Status post cardiac cath and stenting SVG with a drug-eluting stent 3. Status post acute renal failure probably secondary to contrast nephropathy 4. Ischemic cardiomyopathy LV ejection fraction of 40% 5. Essential hypertension 6. Anemia 7. Legally blind Plan. Cardiac-cross stable continue present management Subjective Date of service: 12/04/16 Principal diagnosis: CAD; Acute Encephalopathy Interval history: No cardiac symptoms. Constipated Objective Vital Signs Temp Pulse Pulse Pulse Resp BP BP 12/04/16 10:00 86 176/80 12/04/16 09:59 86 146/70 12/04/16 08:00 98.2 F 62 18 128/69 12/04/16 04:14 97.6 F 62 20 147/64 12/03/16 23:48 97.3 F L 63 18 132/68 12/03/16 23:45 97.3 F L 63 18 132/68 12/03/16 23:30 97.5 F L 62 18 138/70 12/03/16 21:58 63 119/59 12/03/16 21:50 12/03/16 21:01 98.5 F 63 63 18 119/59 12/03/16 19:05 98.7 F 64 64 12 132/70 12/03/16 13:06 Pulse Ox 12/04/16 10:00 12/04/16 09:59 12/04/16 08:00 100 12/04/16 04:14 97 12/03/16 23:48 93 12/03/16 23:45 12/03/16 23:30 12/03/16 21:58 12/03/16 21:50 98 12/03/16 21:01 97 12/03/16 19:05 99 12/03/16 13:06 95 - Physical Examination General: No Apparent Distress HEENT: Positive: PERRL Neck: Positive: neck supple, trachea midline. Negative: JVD/HJR Cardiac: Positive: Regular Rate, S1/S2, S3 Lungs: Positive: clear to auscultation, No Wheeze, Rales, Rhonchi Neuro: Positive: Motor Function Intact, Weakness, No Lateralizing Findings Abdomen: Positive: Soft Incision: Cardiac Cath Site Extremities: Absent: edema - Telemetry EKG Rhythm: Sinus Rhythm
--- NOTE | 2016-12-04 10:50 | Progress Note ---
Assessment and Plan Impression * Acute kidney injury on CKD stage 3, Most likely contrast nephropathy * Coronary artery disease. Status post angiogram and angioplasty. Patient also has a history of coronary artery bypass surgery * Uncontrolled Hypertension * Cardiomyopathy with an ejection fraction of 40-45% * Anemia * anasarca Recommendations * Serum creatinine 2.7 at last check, labs pending today, follow up am lytes * follow up daily lytes * continue diuresis as an outpatient * Her baseline creatinine however is approximately 1.4 * Patient is currently nonoliguric * Her urine shows 2+ dipstick protein and fractional excretion of sodium is 0.13 % * Her hyperkalemia has been corrected * Her acidosis has been corrected as well * Avoid nephrotoxins * pt to evaluate and treat * Monitor patient's renal function, fluid status and electrolytes closely * no emili or arb upon hospital discharge * likely ready for dc today, home with po diuretics and follow up office one week Subjective Date of service: 12/04/16 Principal diagnosis: CAD; Acute Encephalopathy Interval history: resting well in bed today, on acute events Objective - Exam Narrative Exam: General appearance: well-developed, well-nourished, appears stated age EENT: PERRL, mucous membranes moist Neck: no JVD, no thyromegaly, no carotid bruit, supple Respiratory: Present: Decreased Breath Sounds (at the bases) Cardiology: regular, normal heart rate, S1S2, no murmurs Gastrointestinal: normal, normoactive bowel sounds Integumentary: no rash, other (no edema) - Vital Signs Vital signs: Vital Signs - 12hr 12/03/16 12/03/16 12/03/16 23:30 23:45 23:48 Temperature 97.5 F L 97.3 F L 97.3 F L Pulse Rate 62 63 Pulse Rate [ 63 From Monitor] Respiratory 18 18 18 Rate Blood Pressure 138/70 132/68 Blood Pressure 132/68 [Right Arm] O2 Sat by Pulse 93 Oximetry 12/04/16 12/04/16 12/04/16 04:14 08:00 09:59 Temperature 97.6 F 98.2 F Pulse Rate 86 Pulse Rate [ 62 62 From Monitor] Respiratory 20 18 Rate Blood Pressure 146/70 Blood Pressure 147/64 128/69 [Right Arm] O2 Sat by Pulse 97 100 Oximetry 12/04/16 10:00 Temperature Pulse Rate 86 Pulse Rate [ From Monitor] Respiratory Rate Blood Pressure 176/80 Blood Pressure [Right Arm] O2 Sat by Pulse Oximetry - Lab 12/03/16 05:58 12/03/16 05:58 Most recent lab results Calcium 9.2 mg/dL (8.4-10.2) 12/03/16 05:58 Urine Creatinine 295.3 mg/dL (0.1-20.0) H 11/24/16 21:57 Urine Sodium 18 mEq/L 11/24/16 21:57
[2016-12-04] MEDS ORDERED: CEPHULAC PR PRN (13:30)
--- NOTE | 2016-12-04 13:58 | XRay Report ---
CHEST TWO VIEWS: 12/04/16 CLINICAL: Respiratory failure. COMPARISON: 11/23/16 FINDINGS: Cardiomegaly and new central vascular congestion. The pulmonary vessels are also less distinct than on the prior exam. Patchy opacities in the left lower lobe on the frontal view. The lungs are otherwise clear. The bones and soft tissues are normal. IMPRESSION: Mild CHF.Left lower lobe atelectasis versus pneumonia.
[2016-12-04 14:48] LABS: Bacteria,Urine 2+ /HPF (Negative); Bilirubin,Urine NEG (Negative); Blood,Urine NEG (Negative); Ketones,Urine NEG (Negative); Leukocyte Esterase,Urine NEG (Negative); Nitrite,Urine NEG (Negative); Urobilinogen,Urine < 2.0 mg/dL (<2.0)
--- NOTE | 2016-12-04 17:14 | Progress Note ---
Assessment and Plan - Patient Problems (1) Acute encephalopathy Current Visit: Yes Status: Acute Plan to address problem: Resolved (2) Anemia Current Visit: Yes Status: Acute Qualifiers: Anemia type: A Iron deficiency anemia type: I Vitamin B12 deficiency anemia type: V Folate deficiency anemia type: F Bone marrow failure anemia type: B Hemolytic anemia type: H Other causes of anemia: O Chronic kidney disease stage: C Plan to address problem: Continue to monitor for bleeding and follow counts (3) CKD (chronic kidney disease) Current Visit: Yes Status: Acute Qualifiers: Chronic kidney disease stage: C Plan to address problem: Continue to avoid nephrotoxic agents, adjust all medications for GFR (4) CAD (coronary artery disease) of artery bypass graft Current Visit: Yes Status: Acute Qualifiers: [place] vs. transplanted heart: N Associated angina: A Plan to address problem: Cardioprotective measures (5) Obesity (BMI 30-39.9) Current Visit: Yes Status: Acute Plan to address problem: Lifestyle modifications, weight loss and exercise (6) Constipation Current Visit: Yes Status: Acute Qualifiers: Constipation type: C Plan to address problem: Tap water enema. Subjective Date of service: 12/04/16 Principal diagnosis: CAD; Acute Encephalopathy Interval history: Seen and examined at bedside; 24 hour events reviewed; nursing and respiratory care staff consulted; no adverse overnight events reported to me; resting in bed ; not using BIPAP ; states that she feels better; denies acute chest pains or increased SOB On room air with adequate saturations- complains of constipation. No bowl movements in the last 4 days, feels uncomfortable. Has had laxatives without clinical response Objective - Exam Narrative Exam: General appearance: well-developed, well-nourished, appears stated age Legally blind EENT:, mucous membranes moist Neck: no JVD, no thyromegaly, no carotid bruit, supple Respiratory: Present: Decreased Breath Sounds (at the bases),CTA Post strnotomy scar Cardiology: regular, normal heart rate, S1S2, no murmurs Gastrointestinal: normal, normoactive bowel sounds, NT, ND Integumentary: no rash, other (no edema) Neuro: Non-focal Vital Signs - 12hr 12/04/16 12/04/16 12/04/16 08:00 09:59 10:00 Temperature 98.2 F Pulse Rate 86 86 Pulse Rate [ 62 From Monitor] Respiratory 18 Rate Blood Pressure 146/70 176/80 Blood Pressure 128/69 [Right Arm] O2 Sat by Pulse 100 Oximetry 12/04/16 12:00 Temperature 98.4 F Pulse Rate Pulse Rate [ 63 From Monitor] Respiratory 20 Rate Blood Pressure Blood Pressure 121/57 [Right Arm] O2 Sat by Pulse 100 Oximetry Constitutional: no acute distress, other (somnolent) Eyes: non-icteric ENT: oropharynx moist Neck: supple, no lymphadenopathy Effort: normal Ascultation: Bilateral: clear, diminished breath sounds, rales (scant in posterior bases) Cardiovascular: regular rate and rhythm Gastrointestinal: normoactive bowel sounds, soft, non-tender, non-distended Integumentary: normal Extremities: no cyanosis, no edema, pulses normal, no ischemia or petechiae Neurologic: normal mental status, non-focal exam, pupils equal and round, motor strength normal and Psychiatric: depressed CBC and BMP: 12/03/16 05:58 12/03/16 05:58 ABG, PT/INR, D-dimer: ABG POC ABG pH 7.356 (7.35-7.45) 11/25/16 22:20 POC ABG pCO2 38.1 (35-45) 11/25/16 22:20 POC ABG pO2 67 (80-105) L 11/25/16 22:20 POC ABG HCO3 21.3 11/25/16 22:20 POC ABG Total CO2 22 11/25/16 22:20 POC ABG O2 Sat 92 11/25/16 22:20 PT/INR, D-dimer PT 14.5 Sec. (12.2-14.9) 11/22/16 07:20 INR 1.14 (0.87-1.13) H 11/22/16 07:20 Abnormal lab findings: Abnormal Labs 11/22/16 11/22/16 11/22/16 07:20 07:20 07:20 WBC RBC 3.52 L Hgb Hct Plt Count Lymph % (Auto) Simpson % (Auto) 11.5 H Lymph # Seg Neutrophils % INR 1.14 H APTT Activated Clotting Time POC ABG pH POC ABG pO2 Sodium Potassium Chloride 108.0 H Carbon Dioxide BUN 25 H Creatinine 1.4 H Glucose POC Glucose Calcium AST ALT Total Creatine Kinase Albumin Urine Creatinine Urine Chloride Crossmatch 11/22/16 11/22/16 11/22/16 07:37 10:46 13:13 WBC RBC Hgb Hct Plt Count Lymph % (Auto) Simpson % (Auto) Lymph # Seg Neutrophils % INR APTT 37.7 H Activated Clotting Time 327 H 202 H POC ABG pH POC ABG pO2 Sodium Potassium Chloride Carbon Dioxide BUN Creatinine Glucose POC Glucose Calcium AST ALT Total Creatine Kinase Albumin Urine Creatinine Urine Chloride Crossmatch 11/22/16 11/23/16 11/23/16 14:25 06:49 06:49 WBC 4.1 L RBC 2.74 L Hgb 7.7 L Hct 23.8 L D Plt Count 135 L Lymph % (Auto) Simpson % (Auto) 13.8 H Lymph # Seg Neutrophils % INR APTT Activated Clotting Time 175 H POC ABG pH POC ABG pO2 Sodium Potassium Chloride Carbon Dioxide BUN 27 H Creatinine 1.8 H Glucose 137 H POC Glucose Calcium 8.0 L AST ALT Total Creatine Kinase 183 H Albumin Urine Creatinine Urine Chloride Crossmatch 11/23/16 11/23/16 11/23/16 11:07 12:45 17:32 WBC RBC 2.98 L Hgb 8.5 L Hct 26.3 L Plt Count Lymph % (Auto) Simpson % (Auto) 13.2 H Lymph # Seg Neutrophils % INR APTT Activated Clotting Time POC ABG pH POC ABG pO2 Sodium Potassium Chloride Carbon Dioxide BUN Creatinine Glucose POC Glucose 134 H 171 H Calcium AST ALT Total Creatine Kinase Albumin Urine Creatinine Urine Chloride Crossmatch 11/23/16 11/24/16 11/24/16 21:24 05:28 05:28 WBC RBC Hgb 8.6 L Hct 26.8 L Plt Count Lymph % (Auto) Simpson % (Auto) Lymph # Seg Neutrophils % INR APTT Activated Clotting Time POC ABG pH POC ABG pO2 Sodium Potassium 5.9 H D Chloride Carbon Dioxide 19 L BUN 33 H Creatinine 2.7 H Glucose 162 H POC Glucose 174 H Calcium AST ALT Total Creatine Kinase Albumin Urine Creatinine Urine Chloride Crossmatch 11/24/16 11/24/16 11/24/16 06:23 07:05 07:09 WBC RBC Hgb Hct Plt Count Lymph % (Auto) Simpson % (Auto) Lymph # Seg Neutrophils % INR APTT Activated Clotting Time POC ABG pH 7.264 L POC ABG pO2 33 L Sodium Potassium 5.8 H Chloride Carbon Dioxide 20 L BUN 33 H Creatinine 2.8 H Glucose 158 H POC Glucose 209 H Calcium AST 100 H ALT 118 H Total Creatine Kinase Albumin 3.5 L Urine Creatinine Urine Chloride Crossmatch 11/24/16 11/24/16 11/24/16 07:19 08:50 11:45 WBC RBC Hgb Hct Plt Count Lymph % (Auto) Simpson % (Auto) Lymph # Seg Neutrophils % INR APTT Activated Clotting Time POC ABG pH 7.285 L POC ABG pO2 64 L Sodium Potassium Chloride Carbon Dioxide BUN Creatinine Glucose POC Glucose 193 H 169 H Calcium AST ALT Total Creatine Kinase Albumin Urine Creatinine Urine Chloride Crossmatch 11/24/16 11/24/16 11/24/16 15:24 15:32 17:14 WBC RBC Hgb Hct Plt Count Lymph % (Auto) Simpson % (Auto) Lymph # Seg Neutrophils % INR APTT Activated Clotting Time POC ABG pH POC ABG pO2 Sodium Potassium 5.2 H Chloride Carbon Dioxide 20 L BUN 37 H Creatinine 3.0 H Glucose 144 H POC Glucose 195 H Calcium AST ALT Total Creatine Kinase Albumin Urine Creatinine Urine Chloride Crossmatch See Detail 11/24/16 11/24/16 11/25/16 21:57 23:39 05:30 WBC RBC Hgb Hct Plt Count Lymph % (Auto) Simpson % (Auto) Lymph # Seg Neutrophils % INR APTT Activated Clotting Time POC ABG pH POC ABG pO2 Sodium Potassium Chloride Carbon Dioxide BUN Creatinine Glucose POC Glucose 112 H 129 H Calcium AST ALT Total Creatine Kinase Albumin Urine Creatinine 295.3 H Urine Chloride 31.3 L Crossmatch 11/25/16 11/25/16 11/25/16 07:00 07:00 08:40 WBC RBC 3.30 L Hgb 9.5 L Hct 29.0 L Plt Count 119 L Lymph % (Auto) Simpson % (Auto) 9.5 H Lymph # Seg Neutrophils % 72.7 H INR APTT Activated Clotting Time POC ABG pH POC ABG pO2 Sodium Potassium Chloride 110.1 H Carbon Dioxide 18 L BUN 38 H Creatinine 2.6 H Glucose 123 H POC Glucose 129 H Calcium 8.2 L AST ALT Total Creatine Kinase Albumin Urine Creatinine Urine Chloride Crossmatch 11/25/16 11/25/16 11/25/16 11:24 12:17 16:16 WBC RBC Hgb Hct Plt Count Lymph % (Auto) Simpson % (Auto) Lymph # Seg Neutrophils % INR APTT Activated Clotting Time POC ABG pH 7.327 L POC ABG pO2 Sodium Potassium Chloride Carbon Dioxide BUN Creatinine Glucose POC Glucose 142 H 151 H Calcium AST ALT Total Creatine Kinase Albumin Urine Creatinine Urine Chloride Crossmatch 11/25/16 11/25/16 11/26/16 21:48 22:20 00:58 WBC RBC 3.23 L Hgb 9.2 L Hct 27.9 L Plt Count 119 L Lymph % (Auto) 10.2 L Simpson % (Auto) 7.6 H Lymph # 0.8 L Seg Neutrophils % 79.9 H INR APTT Activated Clotting Time POC ABG pH POC ABG pO2 67 L Sodium Potassium Chloride Carbon Dioxide BUN Creatinine Glucose POC Glucose 149 H Calcium AST ALT Total Creatine Kinase Albumin Urine Creatinine Urine Chloride Crossmatch 11/26/16 11/26/16 11/26/16 06:11 07:40 11:28 WBC RBC Hgb Hct Plt Count Lymph % (Auto) Simpson % (Auto) Lymph # Seg Neutrophils % INR APTT Activated Clotting Time POC ABG pH POC ABG pO2 Sodium Potassium Chloride Carbon Dioxide 21 L BUN 41 H Creatinine 2.5 H Glucose 151 H POC Glucose 144 H 168 H Calcium 8.1 L AST ALT Total Creatine Kinase Albumin Urine Creatinine Urine Chloride Crossmatch 11/26/16 11/27/16 11/27/16 15:50 00:03 03:45 WBC RBC Hgb Hct Plt Count Lymph % (Auto) Simpson % (Auto) Lymph # Seg Neutrophils % INR APTT Activated Clotting Time POC ABG pH POC ABG pO2 Sodium Potassium Chloride Carbon Dioxide BUN 46 H Creatinine 2.8 H Glucose 147 H POC Glucose 153 H 183 H Calcium 8.1 L AST ALT Total Creatine Kinase Albumin Urine Creatinine Urine Chloride Crossmatch 11/27/16 11/27/16 11/27/16 06:26 07:32 11:53 WBC RBC Hgb Hct Plt Count Lymph % (Auto) Simpson % (Auto) Lymph # Seg Neutrophils % INR APTT Activated Clotting Time POC ABG pH POC ABG pO2 Sodium Potassium Chloride Carbon Dioxide BUN Creatinine Glucose POC Glucose 208 H 193 H 180 H Calcium AST ALT Total Creatine Kinase Albumin Urine Creatinine Urine Chloride Crossmatch 11/27/16 11/27/16 11/28/16 16:42 21:51 08:13 WBC RBC Hgb Hct Plt Count Lymph % (Auto) Simpson % (Auto) Lymph # Seg Neutrophils % INR APTT Activated Clotting Time POC ABG pH POC ABG pO2 Sodium Potassium Chloride Carbon Dioxide BUN Creatinine Glucose POC Glucose 161 H 167 H 151 H Calcium AST ALT Total Creatine Kinase Albumin Urine Creatinine Urine Chloride Crossmatch 11/28/16 11/28/16 11/28/16 10:01 10:01 12:30 WBC RBC Hgb 8.5 L Hct 25.3 L Plt Count Lymph % (Auto) Simpson % (Auto) Lymph # Seg Neutrophils % INR APTT Activated Clotting Time POC ABG pH POC ABG pO2 Sodium 136 L Potassium Chloride Carbon Dioxide BUN 50 H Creatinine 2.8 H Glucose 143 H POC Glucose 154 H Calcium 8.1 L AST ALT Total Creatine Kinase Albumin Urine Creatinine Urine Chloride Crossmatch 11/28/16 11/28/16 11/28/16 15:22 16:55 20:40 WBC RBC Hgb Hct Plt Count Lymph % (Auto) Simpson % (Auto) Lymph # Seg Neutrophils % INR APTT Activated Clotting Time POC ABG pH POC ABG pO2 Sodium Potassium Chloride Carbon Dioxide BUN Creatinine Glucose POC Glucose 191 H 177 H Calcium AST ALT Total Creatine Kinase Albumin Urine Creatinine Urine Chloride Crossmatch See Detail 11/29/16 11/29/16 11/29/16 07:18 07:18 07:31 WBC RBC Hgb 9.5 L Hct 28.2 L Plt Count Lymph % (Auto) Simpson % (Auto) Lymph # Seg Neutrophils % INR APTT Activated Clotting Time POC ABG pH POC ABG pO2 Sodium 136 L Potassium Chloride Carbon Dioxide BUN 51 H Creatinine 2.7 H Glucose 120 H POC Glucose 127 H Calcium 8.1 L AST ALT Total Creatine Kinase Albumin Urine Creatinine Urine Chloride Crossmatch 11/29/16 11/29/16 11/29/16 12:49 17:35 20:31 WBC RBC Hgb Hct Plt Count Lymph % (Auto) Simpson % (Auto) Lymph # Seg Neutrophils % INR APTT Activated Clotting Time POC ABG pH POC ABG pO2 Sodium Potassium Chloride Carbon Dioxide BUN Creatinine Glucose POC Glucose 213 H 179 H 154 H Calcium AST ALT Total Creatine Kinase Albumin Urine Creatinine Urine Chloride Crossmatch 11/30/16 11/30/16 11/30/16 08:25 09:52 16:07 WBC RBC Hgb Hct Plt Count Lymph % (Auto) Simpson % (Auto) Lymph # Seg Neutrophils % INR APTT Activated Clotting Time POC ABG pH POC ABG pO2 Sodium Potassium Chloride Carbon Dioxide BUN 52 H Creatinine 3.0 H Glucose 156 H POC Glucose 127 H 216 H Calcium AST ALT Total Creatine Kinase Albumin Urine Creatinine Urine Chloride Crossmatch 11/30/16 12/01/16 12/01/16 20:45 08:34 08:48 WBC RBC Hgb Hct Plt Count Lymph % (Auto) Simpson % (Auto) Lymph # Seg Neutrophils % INR APTT Activated Clotting Time POC ABG pH POC ABG pO2 Sodium 136 L Potassium Chloride Carbon Dioxide BUN 50 H Creatinine 3.0 H Glucose 124 H POC Glucose 197 H 136 H Calcium AST ALT Total Creatine Kinase Albumin Urine Creatinine Urine Chloride Crossmatch 12/01/16 12/01/16 12/01/16 11:35 16:56 22:08 WBC RBC Hgb Hct Plt Count Lymph % (Auto) Simpson % (Auto) Lymph # Seg Neutrophils % INR APTT Activated Clotting Time POC ABG pH POC ABG pO2 Sodium Potassium Chloride Carbon Dioxide BUN Creatinine Glucose POC Glucose 205 H 210 H 157 H Calcium AST ALT Total Creatine Kinase Albumin Urine Creatinine Urine Chloride Crossmatch 12/02/16 12/02/16 12/02/16 05:52 08:47 15:16 WBC RBC Hgb Hct Plt Count Lymph % (Auto) Simpson % (Auto) Lymph # Seg Neutrophils % INR APTT Activated Clotting Time POC ABG pH POC ABG pO2 Sodium Potassium Chloride Carbon Dioxide BUN 48 H Creatinine 2.7 H Glucose 136 H POC Glucose 134 H 226 H Calcium AST ALT Total Creatine Kinase Albumin Urine Creatinine Urine Chloride Crossmatch 12/02/16 12/03/16 12/03/16 22:53 05:58 05:58 WBC 4.2 L RBC 3.37 L Hgb 9.7 L Hct 29.4 L Plt Count Lymph % (Auto) Simpson % (Auto) Lymph # Seg Neutrophils % INR APTT Activated Clotting Time POC ABG pH POC ABG pO2 Sodium Potassium Chloride Carbon Dioxide BUN 47 H Creatinine 2.7 H Glucose 142 H POC Glucose 235 H Calcium AST ALT Total Creatine Kinase Albumin Urine Creatinine Urine Chloride Crossmatch 12/03/16 12/03/16 12/03/16 13:04 16:47 21:50 WBC RBC Hgb Hct Plt Count Lymph % (Auto) Simpson % (Auto) Lymph # Seg Neutrophils % INR APTT Activated Clotting Time POC ABG pH POC ABG pO2 Sodium Potassium Chloride Carbon Dioxide BUN Creatinine Glucose POC Glucose 135 H 140 H 170 H Calcium AST ALT Total Creatine Kinase Albumin Urine Creatinine Urine Chloride Crossmatch 12/04/16 12/04/16 07:26 12:21 WBC RBC Hgb Hct Plt Count Lymph % (Auto) Simpson % (Auto) Lymph # Seg Neutrophils % INR APTT Activated Clotting Time POC ABG pH POC ABG pO2 Sodium Potassium Chloride Carbon Dioxide BUN Creatinine Glucose POC Glucose 145 H 203 H Calcium AST ALT Total Creatine Kinase Albumin Urine Creatinine Urine Chloride Crossmatch
[2016-12-05] MEDS: LASIX IV SCH ×2 (05:50→18:52)
--- NOTE | 2016-12-05 07:15 | Progress Note ---
Subjective Principal diagnosis: CAD; Acute Encephalopathy Interval history: Patient was seen today for follow-up and multiple renal-related issuevaround 7: 45 in the morning laying in bed comfortably, no acute distress Denies any acute complaints Vitals labs, Intake output and medications were reviewed HEENT: Oral mucosa moist Neck: Supple. No thyromegaly or JVD Chest: Clear to auscultation. No crackles, rales or wheezes Heart: Regular rate and rhythm, S1, S2 normal Abdomen: Soft, nontender, bowel sounds present Extremity: Edema less than 1+ dry skin assessment and plan Acute kidney injury due to contrast-induced nephropathy, monitor renal function closely no acute emergent indication for renal replacement therapy avoid any follow-up nephrotoxic medication monitor renal function closely while on Lasix list of medication was reviewed today Patient needs lab done today Accelerated hypertension patient may likely have underlying renovascular hypertension given that she has a history of coronary artery disease Renal ultrasonogram shows evidence of renal parenchymal disease November 2006 She was taking losartan and hydrochlorothiazide in the outpatient setting which needs to be avoided for now Ejection fraction in the range of 40% Baseline creatinine has been around 1.4 currently between 2 and 3 Patient has been adequately counseled and educated regarding the severity of renal disorder Counseling and education was done regarding all renal-related issues. Patient does have good understanding of the renal-related issues. Well continue to follow and make recommendation from renal standpoint Objective - Vital Signs Vital signs: Vital Signs - 12hr 12/04/16 12/04/16 12/04/16 20:31 20:55 22:16 Temperature 97.6 F Pulse Rate 58 L 59 L Pulse Rate [ 59 L From Monitor] Respiratory 20 Rate Blood Pressure 121/77 Blood Pressure 121/68 [Right Arm] O2 Sat by Pulse 97 Oximetry 12/05/16 12/05/16 12/05/16 01:21 02:31 05:34 Temperature 98.2 F 98.2 F Pulse Rate Pulse Rate [ 58 L 58 L 54 L From Monitor] Respiratory 18 20 20 Rate Blood Pressure Blood Pressure 119/67 126/64 [Right Arm] O2 Sat by Pulse 98 98 98 Oximetry - Lab 12/05/16 07:54 12/05/16 07:54 Most recent lab results Calcium 9.2 mg/dL (8.4-10.2) 12/03/16 05:58 Urine Creatinine 295.3 mg/dL (0.1-20.0) H 11/24/16 21:57 Urine Sodium 18 mEq/L 11/24/16 21:57
[2016-12-05 08:24] LABS: Basophils % (Auto) 0.8 % (0.0-1.8); Eosinophils % (Auto) 5.3 % (0.0-4.3); Hematocrit 26.9 % (30.3-42.9); Mean Corpuscular HGB Conc 33 % (30-34); Mean Corpuscular Hemoglobin 29 pg (28-32); Mean Corpuscular Volume 87 fl (79-97); Platelet Count 193 K/mm3 (140-440); Red Cell Distribution Width 13.7 % (13.2-15.2); White Blood Count 4.5 K/mm3 (4.5-11.0)
[2016-12-05 08:34] LABS: BUN/Creatinine Ratio 13.78; Calcium 9.1 mg/dL (8.4-10.2); Chloride 99.3 mmol/L (98-107); Potassium 4.5 mmol/L (3.6-5.0)
[2016-12-05] MEDS: PLAVIX PO SCH (10:10)
[2016-12-05] MEDS: PROCARDIA XL PO SCH ×2 (10:10→22:05)
[2016-12-05] MEDS: COREG PO SCH ×2 (10:10→22:05)
[2016-12-05] MEDS: ECOTRIN PO SCH (10:10)
[2016-12-05] MEDS: IMDUR PO SCH (10:12)
[2016-12-05] MEDS: PEPCID PO SCH (10:12)
[2016-12-05] MEDS: ALBURX 25% (ALBUMIN) IV SCH ×2 (10:14→22:04)
[2016-12-05] MEDS: HEPARIN SUB-Q SCH ×2 (10:14→22:05)
--- NOTE | 2016-12-05 13:27 | Progress Note ---
Assessment and Plan Altered mental status -resolved Head CT shows no acute intracranial process Volume overload Hyperkalemia -resolved Coronary artery disease with prior CABG Right and LHC findings: moderate to severe elevated left and right heart filling pressures; moderate to severe pulmonary HTN 3 vessel disease ESTRADA to LAD patent SVG x 2 occluded (Diag and OM) subtotal occlusion of proximal segment of SVG to RCA treated with a drug eluting stent EF 40-45% Acute renal failure secondary to contrast nephropathy Acute drop in H&H s/p blood transfusion Ischemic Cardiomyopathy Hypertension Deconditioning Continue medical therapy for coronary artery disease, including dual oral antiplatelet therapy for recent coronary stent. Awaits nephrology recommendations. Discharge planning in process. Subjective Date of service: 12/05/16 Principal diagnosis: CAD; Acute Encephalopathy Interval history: Patient has no complaints. Noted a rise in creatinine from 2.7 to 3.7 today. Objective Vital Signs Temp Pulse Pulse Resp BP BP Pulse Ox 12/05/16 10:12 62 125/52 12/05/16 10:10 62 125/52 12/05/16 09:55 98.4 F 62 18 125/52 12/05/16 05:34 98.2 F 54 L 20 126/64 98 12/05/16 02:31 58 L 20 98 12/05/16 01:21 98.2 F 58 L 18 119/67 98 12/04/16 22:16 59 L 121/77 12/04/16 20:55 58 L 12/04/16 20:31 97.6 F 59 L 20 121/68 97 12/04/16 17:00 98.2 F 60 20 122/60 100 - Physical Examination General: No Apparent Distress Neck: Positive: trachea midline Cardiac: Positive: Reg Rate and Rhythm Neuro: Positive: Motor Function Intact, Weakness Extremities: Absent: edema - Labs and Meds CBC 12/05/16 Range/Units 07:54 WBC 4.5 (4.5-11.0) K/mm3 RBC 3.10 L (3.65-5.03) M/mm3 Hgb 9.0 L (10.1-14.3) gm/dl Hct 26.9 L (30.3-42.9) % Plt Count 193 (140-440) K/mm3 Lymph # 1.1 L (1.2-5.4) K/mm3 Clare # 0.6 (0.0-0.8) K/mm3 Eos # 0.2 (0.0-0.4) K/mm3 Baso # 0.0 (0.0-0.1) K/mm3 Comprehensive Metabolic Panel 12/05/16 Range/Units 07:54 Sodium 139 (137-145) mmol/L Potassium 4.5 (3.6-5.0) mmol/L Chloride 99.3 (98-107) mmol/L Carbon Dioxide 25 (22-30) mmol/L BUN 51 H (7-17) mg/dL Creatinine 3.7 H (0.7-1.2) mg/dL Glucose 132 H (65-100) mg/dL Calcium 9.1 (8.4-10.2) mg/dL
[2016-12-05] MEDS: MYLICON PO PRN ×2 (14:38→20:33)
--- NOTE | 2016-12-05 18:44 | Progress Note ---
Assessment and Plan Patient awake. Sitting by the side of the bed.No acute respiratory distress.. Patient is on room air at this time and O2 saturation 92%. - Patient Problems (1) PATRIA (acute kidney injury) Current Visit: Yes Status: Acute Plan to address problem: Management as per nephrology. (2) Acute encephalopathy Current Visit: Yes Status: Acute Plan to address problem: Patient more alert. Encephalopathy improving. (3) Anemia Current Visit: Yes Status: Acute Qualifiers: Anemia type: A Iron deficiency anemia type: I Vitamin B12 deficiency anemia type: V Folate deficiency anemia type: F Bone marrow failure anemia type: B Hemolytic anemia type: H Other causes of anemia: O Chronic kidney disease stage: C Plan to address problem: Management as per primary care. (4) CAD (coronary artery disease) of artery bypass graft Current Visit: Yes Status: Acute Qualifiers: [place] vs. transplanted heart: N Associated angina: A Plan to address problem: Management as per cardiology. (5) Obesity (BMI 30-39.9) Current Visit: Yes Status: Acute Plan to address problem: Weight reduction diet. (6) Sleep apnea Current Visit: Yes Status: Acute Qualifiers: Sleep apnea type: S Plan to address problem: Possible sleep apnea. BIPAP standby in the room. Recommend sleep study as out patient. Subjective Date of service: 12/05/16 Principal diagnosis: CAD; Acute Encephalopathy Interval history: Patient awake. Sitting by the side of the bed.No acute respiratory distress.. Patient is on room air at this time and O2 saturation 92%. Objective Vital Signs - 12hr 12/05/16 12/05/16 12/05/16 09:55 10:10 10:12 Temperature 98.4 F Pulse Rate 62 62 Pulse Rate [ 62 From Monitor] Respiratory 18 Rate Blood Pressure 125/52 125/52 Blood Pressure 125/52 [Right Arm] 12/05/16 12/05/16 13:47 17:39 Temperature 98.0 F 98.4 F Pulse Rate Pulse Rate [ 62 60 From Monitor] Respiratory 18 20 Rate Blood Pressure Blood Pressure 125/67 124/62 [Right Arm] Constitutional: no acute distress, other (somnolent) Eyes: non-icteric ENT: oropharynx moist Neck: supple, no lymphadenopathy Effort: normal Ascultation: Bilateral: diminished breath sounds, rales (scant in posterior bases) Cardiovascular: regular rate and rhythm Gastrointestinal: normoactive bowel sounds, soft, non-tender, non-distended Integumentary: normal Extremities: no cyanosis, no edema, pulses normal, no ischemia or petechiae Neurologic: normal mental status, non-focal exam, pupils equal and round, motor strength normal and Psychiatric: depressed CBC and BMP: 12/05/16 07:54 12/05/16 07:54 ABG, PT/INR, D-dimer: ABG POC ABG pH 7.356 (7.35-7.45) 11/25/16 22:20 POC ABG pCO2 38.1 (35-45) 11/25/16 22:20 POC ABG pO2 67 (80-105) L 11/25/16 22:20 POC ABG HCO3 21.3 11/25/16 22:20 POC ABG Total CO2 22 11/25/16 22:20 POC ABG O2 Sat 92 11/25/16 22:20 PT/INR, D-dimer PT 14.5 Sec. (12.2-14.9) 11/22/16 07:20 INR 1.14 (0.87-1.13) H 11/22/16 07:20 Abnormal lab findings: Abnormal Labs 11/22/16 11/22/16 11/22/16 07:20 07:20 07:20 WBC RBC 3.52 L Hgb Hct Plt Count Lymph % (Auto) [place] % (Auto) 11.5 H Eos % (Auto) Lymph # Seg Neutrophils % INR 1.14 H APTT Activated Clotting Time POC ABG pH POC ABG pO2 Sodium Potassium Chloride 108.0 H Carbon Dioxide BUN 25 H Creatinine 1.4 H Glucose POC Glucose Calcium AST ALT Total Creatine Kinase Albumin Urine Creatinine Urine Chloride Crossmatch 11/22/16 11/22/16 11/22/16 07:37 10:46 13:13 WBC RBC Hgb Hct Plt Count Lymph % (Auto) [place] % (Auto) Eos % (Auto) Lymph # Seg Neutrophils % INR APTT 37.7 H Activated Clotting Time 327 H 202 H POC ABG pH POC ABG pO2 Sodium Potassium Chloride Carbon Dioxide BUN Creatinine Glucose POC Glucose Calcium AST ALT Total Creatine Kinase Albumin Urine Creatinine Urine Chloride Crossmatch 11/22/16 11/23/16 11/23/16 14:25 06:49 06:49 WBC 4.1 L RBC 2.74 L Hgb 7.7 L Hct 23.8 L D Plt Count 135 L Lymph % (Auto) [place] % (Auto) 13.8 H Eos % (Auto) Lymph # Seg Neutrophils % INR APTT Activated Clotting Time 175 H POC ABG pH POC ABG pO2 Sodium Potassium Chloride Carbon Dioxide BUN 27 H Creatinine 1.8 H Glucose 137 H POC Glucose Calcium 8.0 L AST ALT Total Creatine Kinase 183 H Albumin Urine Creatinine Urine Chloride Crossmatch 11/23/16 11/23/16 11/23/16 11:07 12:45 17:32 WBC RBC 2.98 L Hgb 8.5 L Hct 26.3 L Plt Count Lymph % (Auto) [place] % (Auto) 13.2 H Eos % (Auto) Lymph # Seg Neutrophils % INR APTT Activated Clotting Time POC ABG pH POC ABG pO2 Sodium Potassium Chloride Carbon Dioxide BUN Creatinine Glucose POC Glucose 134 H 171 H Calcium AST ALT Total Creatine Kinase Albumin Urine Creatinine Urine Chloride Crossmatch 11/23/16 11/24/16 11/24/16 21:24 05:28 05:28 WBC RBC Hgb 8.6 L Hct 26.8 L Plt Count Lymph % (Auto) [place] % (Auto) Eos % (Auto) Lymph # Seg Neutrophils % INR APTT Activated Clotting Time POC ABG pH POC ABG pO2 Sodium Potassium 5.9 H D Chloride Carbon Dioxide 19 L BUN 33 H Creatinine 2.7 H Glucose 162 H POC Glucose 174 H Calcium AST ALT Total Creatine Kinase Albumin Urine Creatinine Urine Chloride Crossmatch 11/24/16 11/24/16 11/24/16 06:23 07:05 07:09 WBC RBC Hgb Hct Plt Count Lymph % (Auto) [place] % (Auto) Eos % (Auto) Lymph # Seg Neutrophils % INR APTT Activated Clotting Time POC ABG pH 7.264 L POC ABG pO2 33 L Sodium Potassium 5.8 H Chloride Carbon Dioxide 20 L BUN 33 H Creatinine 2.8 H Glucose 158 H POC Glucose 209 H Calcium AST 100 H ALT 118 H Total Creatine Kinase Albumin 3.5 L Urine Creatinine Urine Chloride Crossmatch 11/24/16 11/24/16 11/24/16 07:19 08:50 11:45 WBC RBC Hgb Hct Plt Count Lymph % (Auto) [place] % (Auto) Eos % (Auto) Lymph # Seg Neutrophils % INR APTT Activated Clotting Time POC ABG pH 7.285 L POC ABG pO2 64 L Sodium Potassium Chloride Carbon Dioxide BUN Creatinine Glucose POC Glucose 193 H 169 H Calcium AST ALT Total Creatine Kinase Albumin Urine Creatinine Urine Chloride Crossmatch 11/24/16 11/24/16 11/24/16 15:24 15:32 17:14 WBC RBC Hgb Hct Plt Count Lymph % (Auto) [place] % (Auto) Eos % (Auto) Lymph # Seg Neutrophils % INR APTT Activated Clotting Time POC ABG pH POC ABG pO2 Sodium Potassium 5.2 H Chloride Carbon Dioxide 20 L BUN 37 H Creatinine 3.0 H Glucose 144 H POC Glucose 195 H Calcium AST ALT Total Creatine Kinase Albumin Urine Creatinine Urine Chloride Crossmatch See Detail 11/24/16 11/24/16 11/25/16 21:57 23:39 05:30 WBC RBC Hgb Hct Plt Count Lymph % (Auto) [place] % (Auto) Eos % (Auto) Lymph # Seg Neutrophils % INR APTT Activated Clotting Time POC ABG pH POC ABG pO2 Sodium Potassium Chloride Carbon Dioxide BUN Creatinine Glucose POC Glucose 112 H 129 H Calcium AST ALT Total Creatine Kinase Albumin Urine Creatinine 295.3 H Urine Chloride 31.3 L Crossmatch 11/25/16 11/25/16 11/25/16 07:00 07:00 08:40 WBC RBC 3.30 L Hgb 9.5 L Hct 29.0 L Plt Count 119 L Lymph % (Auto) [place] % (Auto) 9.5 H Eos % (Auto) Lymph # Seg Neutrophils % 72.7 H INR APTT Activated Clotting Time POC ABG pH POC ABG pO2 Sodium Potassium Chloride 110.1 H Carbon Dioxide 18 L BUN 38 H Creatinine 2.6 H Glucose 123 H POC Glucose 129 H Calcium 8.2 L AST ALT Total Creatine Kinase Albumin Urine Creatinine Urine Chloride Crossmatch 11/25/16 11/25/16 11/25/16 11:24 12:17 16:16 WBC RBC Hgb Hct Plt Count Lymph % (Auto) [place] % (Auto) Eos % (Auto) Lymph # Seg Neutrophils % INR APTT Activated Clotting Time POC ABG pH 7.327 L POC ABG pO2 Sodium Potassium Chloride Carbon Dioxide BUN Creatinine Glucose POC Glucose 142 H 151 H Calcium AST ALT Total Creatine Kinase Albumin Urine Creatinine Urine Chloride Crossmatch 11/25/16 11/25/16 11/26/16 21:48 22:20 00:58 WBC RBC 3.23 L Hgb 9.2 L Hct 27.9 L Plt Count 119 L Lymph % (Auto) 10.2 L [place] % (Auto) 7.6 H Eos % (Auto) Lymph # 0.8 L Seg Neutrophils % 79.9 H INR APTT Activated Clotting Time POC ABG pH POC ABG pO2 67 L Sodium Potassium Chloride Carbon Dioxide BUN Creatinine Glucose POC Glucose 149 H Calcium AST ALT Total Creatine Kinase Albumin Urine Creatinine Urine Chloride Crossmatch 11/26/16 11/26/16 11/26/16 06:11 07:40 11:28 WBC RBC Hgb Hct Plt Count Lymph % (Auto) [place] % (Auto) Eos % (Auto) Lymph # Seg Neutrophils % INR APTT Activated Clotting Time POC ABG pH POC ABG pO2 Sodium Potassium Chloride Carbon Dioxide 21 L BUN 41 H Creatinine 2.5 H Glucose 151 H POC Glucose 144 H 168 H Calcium 8.1 L AST ALT Total Creatine Kinase Albumin Urine Creatinine Urine Chloride Crossmatch 11/26/16 11/27/16 11/27/16 15:50 00:03 03:45 WBC RBC Hgb Hct Plt Count Lymph % (Auto) [place] % (Auto) Eos % (Auto) Lymph # Seg Neutrophils % INR APTT Activated Clotting Time POC ABG pH POC ABG pO2 Sodium Potassium Chloride Carbon Dioxide BUN 46 H Creatinine 2.8 H Glucose 147 H POC Glucose 153 H 183 H Calcium 8.1 L AST ALT Total Creatine Kinase Albumin Urine Creatinine Urine Chloride Crossmatch 11/27/16 11/27/16 11/27/16 06:26 07:32 11:53 WBC RBC Hgb Hct Plt Count Lymph % (Auto) [place] % (Auto) Eos % (Auto) Lymph # Seg Neutrophils % INR APTT Activated Clotting Time POC ABG pH POC ABG pO2 Sodium Potassium Chloride Carbon Dioxide BUN Creatinine Glucose POC Glucose 208 H 193 H 180 H Calcium AST ALT Total Creatine Kinase Albumin Urine Creatinine Urine Chloride Crossmatch 11/27/16 11/27/16 11/28/16 16:42 21:51 08:13 WBC RBC Hgb Hct Plt Count Lymph % (Auto) [place] % (Auto) Eos % (Auto) Lymph # Seg Neutrophils % INR APTT Activated Clotting Time POC ABG pH POC ABG pO2 Sodium Potassium Chloride Carbon Dioxide BUN Creatinine Glucose POC Glucose 161 H 167 H 151 H Calcium AST ALT Total Creatine Kinase Albumin Urine Creatinine Urine Chloride Crossmatch 11/28/16 11/28/16 11/28/16 10:01 10:01 12:30 WBC RBC Hgb 8.5 L Hct 25.3 L Plt Count Lymph % (Auto) [place] % (Auto) Eos % (Auto) Lymph # Seg Neutrophils % INR APTT Activated Clotting Time POC ABG pH POC ABG pO2 Sodium 136 L Potassium Chloride Carbon Dioxide BUN 50 H Creatinine 2.8 H Glucose 143 H POC Glucose 154 H Calcium 8.1 L AST ALT Total Creatine Kinase Albumin Urine Creatinine Urine Chloride Crossmatch 11/28/16 11/28/16 11/28/16 15:22 16:55 20:40 WBC RBC Hgb Hct Plt Count Lymph % (Auto) [place] % (Auto) Eos % (Auto) Lymph # Seg Neutrophils % INR APTT Activated Clotting Time POC ABG pH POC ABG pO2 Sodium Potassium Chloride Carbon Dioxide BUN Creatinine Glucose POC Glucose 191 H 177 H Calcium AST ALT Total Creatine Kinase Albumin Urine Creatinine Urine Chloride Crossmatch See Detail 11/29/16 11/29/16 11/29/16 07:18 07:18 07:31 WBC RBC Hgb 9.5 L Hct 28.2 L Plt Count Lymph % (Auto) [place] % (Auto) Eos % (Auto) Lymph # Seg Neutrophils % INR APTT Activated Clotting Time POC ABG pH POC ABG pO2 Sodium 136 L Potassium Chloride Carbon Dioxide BUN 51 H Creatinine 2.7 H Glucose 120 H POC Glucose 127 H Calcium 8.1 L AST ALT Total Creatine Kinase Albumin Urine Creatinine Urine Chloride Crossmatch 11/29/16 11/29/16 11/29/16 12:49 17:35 20:31 WBC RBC Hgb Hct Plt Count Lymph % (Auto) [place] % (Auto) Eos % (Auto) Lymph # Seg Neutrophils % INR APTT Activated Clotting Time POC ABG pH POC ABG pO2 Sodium Potassium Chloride Carbon Dioxide BUN Creatinine Glucose POC Glucose 213 H 179 H 154 H Calcium AST ALT Total Creatine Kinase Albumin Urine Creatinine Urine Chloride Crossmatch 11/30/16 11/30/16 11/30/16 08:25 09:52 16:07 WBC RBC Hgb Hct Plt Count Lymph % (Auto) [place] % (Auto) Eos % (Auto) Lymph # Seg Neutrophils % INR APTT Activated Clotting Time POC ABG pH POC ABG pO2 Sodium Potassium Chloride Carbon Dioxide BUN 52 H Creatinine 3.0 H Glucose 156 H POC Glucose 127 H 216 H Calcium AST ALT Total Creatine Kinase Albumin Urine Creatinine Urine Chloride Crossmatch 11/30/16 12/01/16 12/01/16 20:45 08:34 08:48 WBC RBC Hgb Hct Plt Count Lymph % (Auto) [place] % (Auto) Eos % (Auto) Lymph # Seg Neutrophils % INR APTT Activated Clotting Time POC ABG pH POC ABG pO2 Sodium 136 L Potassium Chloride Carbon Dioxide BUN 50 H Creatinine 3.0 H Glucose 124 H POC Glucose 197 H 136 H Calcium AST ALT Total Creatine Kinase Albumin Urine Creatinine Urine Chloride Crossmatch 12/01/16 12/01/16 12/01/16 11:35 16:56 22:08 WBC RBC Hgb Hct Plt Count Lymph % (Auto) [place] % (Auto) Eos % (Auto) Lymph # Seg Neutrophils % INR APTT Activated Clotting Time POC ABG pH POC ABG pO2 Sodium Potassium Chloride Carbon Dioxide BUN Creatinine Glucose POC Glucose 205 H 210 H 157 H Calcium AST ALT Total Creatine Kinase Albumin Urine Creatinine Urine Chloride Crossmatch 12/02/16 12/02/16 12/02/16 05:52 08:47 15:16 WBC RBC Hgb Hct Plt Count Lymph % (Auto) [place] % (Auto) Eos % (Auto) Lymph # Seg Neutrophils % INR APTT Activated Clotting Time POC ABG pH POC ABG pO2 Sodium Potassium Chloride Carbon Dioxide BUN 48 H Creatinine 2.7 H Glucose 136 H POC Glucose 134 H 226 H Calcium AST ALT Total Creatine Kinase Albumin Urine Creatinine Urine Chloride Crossmatch 12/02/16 12/03/16 12/03/16 22:53 05:58 05:58 WBC 4.2 L RBC 3.37 L Hgb 9.7 L Hct 29.4 L Plt Count Lymph % (Auto) [place] % (Auto) Eos % (Auto) Lymph # Seg Neutrophils % INR APTT Activated Clotting Time POC ABG pH POC ABG pO2 Sodium Potassium Chloride Carbon Dioxide BUN 47 H Creatinine 2.7 H Glucose 142 H POC Glucose 235 H Calcium AST ALT Total Creatine Kinase Albumin Urine Creatinine Urine Chloride Crossmatch 12/03/16 12/03/16 12/03/16 13:04 16:47 21:50 WBC RBC Hgb Hct Plt Count Lymph % (Auto) [place] % (Auto) Eos % (Auto) Lymph # Seg Neutrophils % INR APTT Activated Clotting Time POC ABG pH POC ABG pO2 Sodium Potassium Chloride Carbon Dioxide BUN Creatinine Glucose POC Glucose 135 H 140 H 170 H Calcium AST ALT Total Creatine Kinase Albumin Urine Creatinine Urine Chloride Crossmatch 12/04/16 12/04/16 12/04/16 07:26 12:21 16:43 WBC RBC Hgb Hct Plt Count Lymph % (Auto) [place] % (Auto) Eos % (Auto) Lymph # Seg Neutrophils % INR APTT Activated Clotting Time POC ABG pH POC ABG pO2 Sodium Potassium Chloride Carbon Dioxide BUN Creatinine Glucose POC Glucose 145 H 203 H 210 H Calcium AST ALT Total Creatine Kinase Albumin Urine Creatinine Urine Chloride Crossmatch 12/04/16 12/05/16 12/05/16 21:41 07:54 07:54 WBC RBC 3.10 L Hgb 9.0 L Hct 26.9 L Plt Count Lymph % (Auto) [place] % (Auto) 13.8 H Eos % (Auto) 5.3 H Lymph # 1.1 L Seg Neutrophils % INR APTT Activated Clotting Time POC ABG pH POC ABG pO2 Sodium Potassium Chloride Carbon Dioxide BUN 51 H Creatinine 3.7 H Glucose 132 H POC Glucose 211 H Calcium AST ALT Total Creatine Kinase Albumin Urine Creatinine Urine Chloride Crossmatch 12/05/16 12/05/16 08:30 11:46 WBC RBC Hgb Hct Plt Count Lymph % (Auto) [place] % (Auto) Eos % (Auto) Lymph # Seg Neutrophils % INR APTT Activated Clotting Time POC ABG pH POC ABG pO2 Sodium Potassium Chloride Carbon Dioxide BUN Creatinine Glucose POC Glucose 140 H 225 H Calcium AST ALT Total Creatine Kinase Albumin Urine Creatinine Urine Chloride Crossmatch Chest x-ray: report reviewed (Mild CHF. Left lower lobe atelectasis or pneumonia.)
[2016-12-06] MEDS: TYLENOL PO PRN (05:01)
[2016-12-06] MEDS: MYLICON PO PRN (05:02)
[2016-12-06] MEDS: ALBURX 25% (ALBUMIN) IV SCH (05:04)
[2016-12-06] MEDS: LASIX IV SCH (06:20)
--- NOTE | 2016-12-06 09:37 | Progress Note ---
Subjective Principal diagnosis: CAD; Acute Encephalopathy Interval history: Patient was seen today for follow-up and multiple renal-related issues Patient denies any complaints of chest pain pressure or shortness of breath Events of 24 hours vitals labs intake output medications were reviewed Social history: Reviewed Family history: Reviewed Allergies: Reviewed Physical examination Vitals reviewed HEENT: Mild pallor no icterus Neck: Supple no JVD Chest: Clear to auscultation Heart: Regular rate and rhythm Abdomen soft nontender no renal bruit no CVA tenderness Extremity: Mild edema right skin Assessment and plan Acute kidney injury patient's creatinine is worse as of yesterday Like to discontinue albumen of Lasix Discussed with cardiology team Also will order labs today to evaluate Patient was adequately counseled and educated regarding renal-related issues All renal-related questions were answered We'll continue to follow and make recommendation from renal standpoint Objective - Vital Signs Vital signs: Vital Signs - 12hr 12/05/16 12/06/16 12/06/16 22:40 01:30 06:35 Temperature 98.0 F 98.2 F Pulse Rate [ 0 L 0 L From Monitor] Pulse Rate [ 61 62 Right Radial] Respiratory 20 20 Rate Blood Pressure 131/63 133/62 [Right Arm] O2 Sat by Pulse 100 93 91 Oximetry - Lab 12/05/16 07:54 12/05/16 07:54 Most recent lab results Calcium 9.1 mg/dL (8.4-10.2) 12/05/16 07:54 Urine Creatinine 295.3 mg/dL (0.1-20.0) H 11/24/16 21:57 Urine Sodium 18 mEq/L 11/24/16 21:57
--- NOTE | 2016-12-06 10:10 | Progress Note ---
Assessment and Plan Altered mental status -resolved Head CT shows no acute intracranial process Volume overload - improving Hyperkalemia - resolved Coronary artery disease with prior CABG Right and LHC findings: moderate to severe elevated left and right heart filling pressures; moderate to severe pulmonary HTN 3 vessel disease ESTRADA to LAD patent SVG x 2 occluded (Diag and OM) subtotal occlusion of proximal segment of SVG to RCA treated with a drug eluting stent EF 40-45% Acute renal failure Acute drop in H&H s/p blood transfusion Ischemic Cardiomyopathy Hypertension Deconditioning Recommendations: Repeat BMP If creatinine is trending down, will discharge patient home (discussed with Dr Pang) Discharge meds:asa, plavix, lipitor, coreg, imdur, nifedipine NO ACEi due to acute on chronic renal failure Follow-up cardiology and nephrology within 1 week post discharge Subjective Date of service: 12/06/16 Principal diagnosis: CAD; Acute Encephalopathy Interval history: Patient is doing well. She denies chest pain or shortness of breath. She wants to go home Objective Vital Signs Temp Pulse Pulse Pulse Resp BP BP 12/06/16 09:37 98.1 F 62 62 18 134/74 12/06/16 06:35 98.2 F 0 L 62 20 133/62 12/06/16 01:30 98.0 F 0 L 61 20 131/63 12/05/16 22:40 12/05/16 21:20 98.1 F 0 L 67 20 113/57 12/05/16 20:00 66 12/05/16 17:39 98.4 F 60 20 124/62 12/05/16 13:47 98.0 F 62 18 125/67 12/05/16 10:12 62 125/52 12/05/16 10:10 62 125/52 Pulse Ox 12/06/16 09:37 12/06/16 06:35 91 12/06/16 01:30 93 12/05/16 22:40 100 12/05/16 21:20 92 12/05/16 20:00 12/05/16 17:39 12/05/16 13:47 12/05/16 10:12 12/05/16 10:10 - Physical Examination General: No Apparent Distress HEENT: Positive: PERRL Neck: Positive: trachea midline Cardiac: Positive: Reg Rate and Rhythm Lungs: Positive: Decreased Breath Sounds (right base) Neuro: Positive: Motor Function Intact, Weakness Abdomen: Positive: Soft Incision: Cardiac Cath Site Extremities: Absent: edema
[2016-12-06 10:14] LABS: BUN/Creatinine Ratio 13.15; Calcium 9.5 mg/dL (8.4-10.2); Chloride 97.6 mmol/L (98-107); Potassium 4.4 mmol/L (3.6-5.0)
[2016-12-06] MEDS ORDERED: NACL 0.9% 1000 ML 1,000 ML IV SCH (11:00)
[2016-12-06] MEDS: ECOTRIN PO SCH (11:26)
[2016-12-06] MEDS: PLAVIX PO SCH (11:27)
[2016-12-06] MEDS: IMDUR PO SCH (11:27)
[2016-12-06] MEDS: PEPCID PO SCH (11:27)
[2016-12-06] MEDS: HEPARIN SUB-Q SCH ×2 (11:27→23:30)
[2016-12-06] MEDS: COREG PO SCH ×2 (11:28→23:29)
[2016-12-06] MEDS: PROCARDIA XL PO SCH ×2 (11:28→23:30)
--- NOTE | 2016-12-06 13:49 | Progress Note ---
Assessment and Plan Patient awake. Resting on 2 litres O2..No complaint of chest pain or shortness of breath.. O2 saturation 91%. - Patient Problems (1) PATRIA (acute kidney injury) Current Visit: Yes Status: Acute Plan to address problem: Management as per nephrology. (2) Acute encephalopathy Current Visit: Yes Status: Acute Plan to address problem: Patient more alert. Encephalopathy improving. (3) Anemia Current Visit: Yes Status: Acute Qualifiers: Anemia type: A Iron deficiency anemia type: I Vitamin B12 deficiency anemia type: V Folate deficiency anemia type: F Bone marrow failure anemia type: B Hemolytic anemia type: H Other causes of anemia: O Chronic kidney disease stage: C Plan to address problem: Management as per primary care. (4) CAD (coronary artery disease) of artery bypass graft Current Visit: Yes Status: Acute Qualifiers: [place] vs. transplanted heart: N Associated angina: A Plan to address problem: Management as per cardiology. (5) Obesity (BMI 30-39.9) Current Visit: Yes Status: Acute Plan to address problem: Weight reduction diet. (6) Sleep apnea Current Visit: Yes Status: Acute Qualifiers: Sleep apnea type: S Plan to address problem: Possible sleep apnea. BIPAP standby in the room. Recommend sleep study as out patient. Subjective Date of service: 12/06/16 Principal diagnosis: CAD; Acute Encephalopathy Interval history: Patient awake. Resting on 2 litres O2..No complaint of chest pain or shortness of breath.. O2 saturation 91%. Objective Vital Signs - 12hr 12/06/16 12/06/16 06:35 09:37 Temperature 98.2 F 98.1 F Pulse Rate [ 0 L 62 From Monitor] Pulse Rate [ 62 62 Right Radial] Respiratory 20 18 Rate Blood Pressure 133/62 134/74 [Right Arm] O2 Sat by Pulse 91 Oximetry Constitutional: no acute distress, other (somnolent) Eyes: non-icteric ENT: oropharynx moist Neck: supple, no lymphadenopathy Effort: normal Ascultation: Bilateral: diminished breath sounds, rales (scant in posterior bases) Cardiovascular: regular rate and rhythm Gastrointestinal: normoactive bowel sounds, soft, non-tender, non-distended Integumentary: normal Extremities: no cyanosis, no edema, pulses normal, no ischemia or petechiae Neurologic: normal mental status, non-focal exam, pupils equal and round, motor strength normal and Psychiatric: depressed CBC and BMP: 12/05/16 07:54 12/06/16 09:10 ABG, PT/INR, D-dimer: ABG POC ABG pH 7.356 (7.35-7.45) 11/25/16 22:20 POC ABG pCO2 38.1 (35-45) 11/25/16 22:20 POC ABG pO2 67 (80-105) L 11/25/16 22:20 POC ABG HCO3 21.3 11/25/16 22:20 POC ABG Total CO2 22 11/25/16 22:20 POC ABG O2 Sat 92 11/25/16 22:20 PT/INR, D-dimer PT 14.5 Sec. (12.2-14.9) 11/22/16 07:20 INR 1.14 (0.87-1.13) H 11/22/16 07:20 Abnormal lab findings: Abnormal Labs 11/22/16 11/22/16 11/22/16 07:20 07:20 07:20 WBC RBC 3.52 L Hgb Hct Plt Count Lymph % (Auto) [place] % (Auto) 11.5 H Eos % (Auto) Lymph # Seg Neutrophils % INR 1.14 H APTT Activated Clotting Time POC ABG pH POC ABG pO2 Sodium Potassium Chloride 108.0 H Carbon Dioxide BUN 25 H Creatinine 1.4 H Glucose POC Glucose Uric Acid Calcium AST ALT Total Creatine Kinase Albumin Urine Creatinine Urine Chloride Crossmatch 11/22/16 11/22/16 11/22/16 07:37 10:46 13:13 WBC RBC Hgb Hct Plt Count Lymph % (Auto) [place] % (Auto) Eos % (Auto) Lymph # Seg Neutrophils % INR APTT 37.7 H Activated Clotting Time 327 H 202 H POC ABG pH POC ABG pO2 Sodium Potassium Chloride Carbon Dioxide BUN Creatinine Glucose POC Glucose Uric Acid Calcium AST ALT Total Creatine Kinase Albumin Urine Creatinine Urine Chloride Crossmatch 11/22/16 11/23/16 11/23/16 14:25 06:49 06:49 WBC 4.1 L RBC 2.74 L Hgb 7.7 L Hct 23.8 L D Plt Count 135 L Lymph % (Auto) [place] % (Auto) 13.8 H Eos % (Auto) Lymph # Seg Neutrophils % INR APTT Activated Clotting Time 175 H POC ABG pH POC ABG pO2 Sodium Potassium Chloride Carbon Dioxide BUN 27 H Creatinine 1.8 H Glucose 137 H POC Glucose Uric Acid Calcium 8.0 L AST ALT Total Creatine Kinase 183 H Albumin Urine Creatinine Urine Chloride Crossmatch 11/23/16 11/23/16 11/23/16 11:07 12:45 17:32 WBC RBC 2.98 L Hgb 8.5 L Hct 26.3 L Plt Count Lymph % (Auto) [place] % (Auto) 13.2 H Eos % (Auto) Lymph # Seg Neutrophils % INR APTT Activated Clotting Time POC ABG pH POC ABG pO2 Sodium Potassium Chloride Carbon Dioxide BUN Creatinine Glucose POC Glucose 134 H 171 H Uric Acid Calcium AST ALT Total Creatine Kinase Albumin Urine Creatinine Urine Chloride Crossmatch 11/23/16 11/24/16 11/24/16 21:24 05:28 05:28 WBC RBC Hgb 8.6 L Hct 26.8 L Plt Count Lymph % (Auto) [place] % (Auto) Eos % (Auto) Lymph # Seg Neutrophils % INR APTT Activated Clotting Time POC ABG pH POC ABG pO2 Sodium Potassium 5.9 H D Chloride Carbon Dioxide 19 L BUN 33 H Creatinine 2.7 H Glucose 162 H POC Glucose 174 H Uric Acid Calcium AST ALT Total Creatine Kinase Albumin Urine Creatinine Urine Chloride Crossmatch 11/24/16 11/24/16 11/24/16 06:23 07:05 07:09 WBC RBC Hgb Hct Plt Count Lymph % (Auto) [place] % (Auto) Eos % (Auto) Lymph # Seg Neutrophils % INR APTT Activated Clotting Time POC ABG pH 7.264 L POC ABG pO2 33 L Sodium Potassium 5.8 H Chloride Carbon Dioxide 20 L BUN 33 H Creatinine 2.8 H Glucose 158 H POC Glucose 209 H Uric Acid Calcium AST 100 H ALT 118 H Total Creatine Kinase Albumin 3.5 L Urine Creatinine Urine Chloride Crossmatch 11/24/16 11/24/16 11/24/16 07:19 08:50 11:45 WBC RBC Hgb Hct Plt Count Lymph % (Auto) [place] % (Auto) Eos % (Auto) Lymph # Seg Neutrophils % INR APTT Activated Clotting Time POC ABG pH 7.285 L POC ABG pO2 64 L Sodium Potassium Chloride Carbon Dioxide BUN Creatinine Glucose POC Glucose 193 H 169 H Uric Acid Calcium AST ALT Total Creatine Kinase Albumin Urine Creatinine Urine Chloride Crossmatch 11/24/16 11/24/16 11/24/16 15:24 15:32 17:14 WBC RBC Hgb Hct Plt Count Lymph % (Auto) [place] % (Auto) Eos % (Auto) Lymph # Seg Neutrophils % INR APTT Activated Clotting Time POC ABG pH POC ABG pO2 Sodium Potassium 5.2 H Chloride Carbon Dioxide 20 L BUN 37 H Creatinine 3.0 H Glucose 144 H POC Glucose 195 H Uric Acid Calcium AST ALT Total Creatine Kinase Albumin Urine Creatinine Urine Chloride Crossmatch See Detail 11/24/16 11/24/16 11/25/16 21:57 23:39 05:30 WBC RBC Hgb Hct Plt Count Lymph % (Auto) [place] % (Auto) Eos % (Auto) Lymph # Seg Neutrophils % INR APTT Activated Clotting Time POC ABG pH POC ABG pO2 Sodium Potassium Chloride Carbon Dioxide BUN Creatinine Glucose POC Glucose 112 H 129 H Uric Acid Calcium AST ALT Total Creatine Kinase Albumin Urine Creatinine 295.3 H Urine Chloride 31.3 L Crossmatch 11/25/16 11/25/16 11/25/16 07:00 07:00 08:40 WBC RBC 3.30 L Hgb 9.5 L Hct 29.0 L Plt Count 119 L Lymph % (Auto) [place] % (Auto) 9.5 H Eos % (Auto) Lymph # Seg Neutrophils % 72.7 H INR APTT Activated Clotting Time POC ABG pH POC ABG pO2 Sodium Potassium Chloride 110.1 H Carbon Dioxide 18 L BUN 38 H Creatinine 2.6 H Glucose 123 H POC Glucose 129 H Uric Acid Calcium 8.2 L AST ALT Total Creatine Kinase Albumin Urine Creatinine Urine Chloride Crossmatch 11/25/16 11/25/16 11/25/16 11:24 12:17 16:16 WBC RBC Hgb Hct Plt Count Lymph % (Auto) [place] % (Auto) Eos % (Auto) Lymph # Seg Neutrophils % INR APTT Activated Clotting Time POC ABG pH 7.327 L POC ABG pO2 Sodium Potassium Chloride Carbon Dioxide BUN Creatinine Glucose POC Glucose 142 H 151 H Uric Acid Calcium AST ALT Total Creatine Kinase Albumin Urine Creatinine Urine Chloride Crossmatch 11/25/16 11/25/16 11/26/16 21:48 22:20 00:58 WBC RBC 3.23 L Hgb 9.2 L Hct 27.9 L Plt Count 119 L Lymph % (Auto) 10.2 L [place] % (Auto) 7.6 H Eos % (Auto) Lymph # 0.8 L Seg Neutrophils % 79.9 H INR APTT Activated Clotting Time POC ABG pH POC ABG pO2 67 L Sodium Potassium Chloride Carbon Dioxide BUN Creatinine Glucose POC Glucose 149 H Uric Acid Calcium AST ALT Total Creatine Kinase Albumin Urine Creatinine Urine Chloride Crossmatch 11/26/16 11/26/16 11/26/16 06:11 07:40 11:28 WBC RBC Hgb Hct Plt Count Lymph % (Auto) [place] % (Auto) Eos % (Auto) Lymph # Seg Neutrophils % INR APTT Activated Clotting Time POC ABG pH POC ABG pO2 Sodium Potassium Chloride Carbon Dioxide 21 L BUN 41 H Creatinine 2.5 H Glucose 151 H POC Glucose 144 H 168 H Uric Acid Calcium 8.1 L AST ALT Total Creatine Kinase Albumin Urine Creatinine Urine Chloride Crossmatch 11/26/16 11/27/16 11/27/16 15:50 00:03 03:45 WBC RBC Hgb Hct Plt Count Lymph % (Auto) [place] % (Auto) Eos % (Auto) Lymph # Seg Neutrophils % INR APTT Activated Clotting Time POC ABG pH POC ABG pO2 Sodium Potassium Chloride Carbon Dioxide BUN 46 H Creatinine 2.8 H Glucose 147 H POC Glucose 153 H 183 H Uric Acid Calcium 8.1 L AST ALT Total Creatine Kinase Albumin Urine Creatinine Urine Chloride Crossmatch 11/27/16 11/27/16 11/27/16 06:26 07:32 11:53 WBC RBC Hgb Hct Plt Count Lymph % (Auto) [place] % (Auto) Eos % (Auto) Lymph # Seg Neutrophils % INR APTT Activated Clotting Time POC ABG pH POC ABG pO2 Sodium Potassium Chloride Carbon Dioxide BUN Creatinine Glucose POC Glucose 208 H 193 H 180 H Uric Acid Calcium AST ALT Total Creatine Kinase Albumin Urine Creatinine Urine Chloride Crossmatch 11/27/16 11/27/16 11/28/16 16:42 21:51 08:13 WBC RBC Hgb Hct Plt Count Lymph % (Auto) [place] % (Auto) Eos % (Auto) Lymph # Seg Neutrophils % INR APTT Activated Clotting Time POC ABG pH POC ABG pO2 Sodium Potassium Chloride Carbon Dioxide BUN Creatinine Glucose POC Glucose 161 H 167 H 151 H Uric Acid Calcium AST ALT Total Creatine Kinase Albumin Urine Creatinine Urine Chloride Crossmatch 11/28/16 11/28/16 11/28/16 10:01 10:01 12:30 WBC RBC Hgb 8.5 L Hct 25.3 L Plt Count Lymph % (Auto) [place] % (Auto) Eos % (Auto) Lymph # Seg Neutrophils % INR APTT Activated Clotting Time POC ABG pH POC ABG pO2 Sodium 136 L Potassium Chloride Carbon Dioxide BUN 50 H Creatinine 2.8 H Glucose 143 H POC Glucose 154 H Uric Acid Calcium 8.1 L AST ALT Total Creatine Kinase Albumin Urine Creatinine Urine Chloride Crossmatch 11/28/16 11/28/16 11/28/16 15:22 16:55 20:40 WBC RBC Hgb Hct Plt Count Lymph % (Auto) [place] % (Auto) Eos % (Auto) Lymph # Seg Neutrophils % INR APTT Activated Clotting Time POC ABG pH POC ABG pO2 Sodium Potassium Chloride Carbon Dioxide BUN Creatinine Glucose POC Glucose 191 H 177 H Uric Acid Calcium AST ALT Total Creatine Kinase Albumin Urine Creatinine Urine Chloride Crossmatch See Detail 11/29/16 11/29/16 11/29/16 07:18 07:18 07:31 WBC RBC Hgb 9.5 L Hct 28.2 L Plt Count Lymph % (Auto) [place] % (Auto) Eos % (Auto) Lymph # Seg Neutrophils % INR APTT Activated Clotting Time POC ABG pH POC ABG pO2 Sodium 136 L Potassium Chloride Carbon Dioxide BUN 51 H Creatinine 2.7 H Glucose 120 H POC Glucose 127 H Uric Acid Calcium 8.1 L AST ALT Total Creatine Kinase Albumin Urine Creatinine Urine Chloride Crossmatch 11/29/16 11/29/16 11/29/16 12:49 17:35 20:31 WBC RBC Hgb Hct Plt Count Lymph % (Auto) [place] % (Auto) Eos % (Auto) Lymph # Seg Neutrophils % INR APTT Activated Clotting Time POC ABG pH POC ABG pO2 Sodium Potassium Chloride Carbon Dioxide BUN Creatinine Glucose POC Glucose 213 H 179 H 154 H Uric Acid Calcium AST ALT Total Creatine Kinase Albumin Urine Creatinine Urine Chloride Crossmatch 11/30/16 11/30/16 11/30/16 08:25 09:52 16:07 WBC RBC Hgb Hct Plt Count Lymph % (Auto) [place] % (Auto) Eos % (Auto) Lymph # Seg Neutrophils % INR APTT Activated Clotting Time POC ABG pH POC ABG pO2 Sodium Potassium Chloride Carbon Dioxide BUN 52 H Creatinine 3.0 H Glucose 156 H POC Glucose 127 H 216 H Uric Acid Calcium AST ALT Total Creatine Kinase Albumin Urine Creatinine Urine Chloride Crossmatch 11/30/16 12/01/16 12/01/16 20:45 08:34 08:48 WBC RBC Hgb Hct Plt Count Lymph % (Auto) [place] % (Auto) Eos % (Auto) Lymph # Seg Neutrophils % INR APTT Activated Clotting Time POC ABG pH POC ABG pO2 Sodium 136 L Potassium Chloride Carbon Dioxide BUN 50 H Creatinine 3.0 H Glucose 124 H POC Glucose 197 H 136 H Uric Acid Calcium AST ALT Total Creatine Kinase Albumin Urine Creatinine Urine Chloride Crossmatch 12/01/16 12/01/16 12/01/16 11:35 16:56 22:08 WBC RBC Hgb Hct Plt Count Lymph % (Auto) [place] % (Auto) Eos % (Auto) Lymph # Seg Neutrophils % INR APTT Activated Clotting Time POC ABG pH POC ABG pO2 Sodium Potassium Chloride Carbon Dioxide BUN Creatinine Glucose POC Glucose 205 H 210 H 157 H Uric Acid Calcium AST ALT Total Creatine Kinase Albumin Urine Creatinine Urine Chloride Crossmatch 12/02/16 12/02/16 12/02/16 05:52 08:47 15:16 WBC RBC Hgb Hct Plt Count Lymph % (Auto) [place] % (Auto) Eos % (Auto) Lymph # Seg Neutrophils % INR APTT Activated Clotting Time POC ABG pH POC ABG pO2 Sodium Potassium Chloride Carbon Dioxide BUN 48 H Creatinine 2.7 H Glucose 136 H POC Glucose 134 H 226 H Uric Acid Calcium AST ALT Total Creatine Kinase Albumin Urine Creatinine Urine Chloride Crossmatch 12/02/16 12/03/16 12/03/16 22:53 05:58 05:58 WBC 4.2 L RBC 3.37 L Hgb 9.7 L Hct 29.4 L Plt Count Lymph % (Auto) [place] % (Auto) Eos % (Auto) Lymph # Seg Neutrophils % INR APTT Activated Clotting Time POC ABG pH POC ABG pO2 Sodium Potassium Chloride Carbon Dioxide BUN 47 H Creatinine 2.7 H Glucose 142 H POC Glucose 235 H Uric Acid Calcium AST ALT Total Creatine Kinase Albumin Urine Creatinine Urine Chloride Crossmatch 12/03/16 12/03/16 12/03/16 13:04 16:47 21:50 WBC RBC Hgb Hct Plt Count Lymph % (Auto) [place] % (Auto) Eos % (Auto) Lymph # Seg Neutrophils % INR APTT Activated Clotting Time POC ABG pH POC ABG pO2 Sodium Potassium Chloride Carbon Dioxide BUN Creatinine Glucose POC Glucose 135 H 140 H 170 H Uric Acid Calcium AST ALT Total Creatine Kinase Albumin Urine Creatinine Urine Chloride Crossmatch 12/04/16 12/04/16 12/04/16 07:26 12:21 16:43 WBC RBC Hgb Hct Plt Count Lymph % (Auto) [place] % (Auto) Eos % (Auto) Lymph # Seg Neutrophils % INR APTT Activated Clotting Time POC ABG pH POC ABG pO2 Sodium Potassium Chloride Carbon Dioxide BUN Creatinine Glucose POC Glucose 145 H 203 H 210 H Uric Acid Calcium AST ALT Total Creatine Kinase Albumin Urine Creatinine Urine Chloride Crossmatch 12/04/16 12/05/16 12/05/16 21:41 07:54 07:54 WBC RBC 3.10 L Hgb 9.0 L Hct 26.9 L Plt Count Lymph % (Auto) [place] % (Auto) 13.8 H Eos % (Auto) 5.3 H Lymph # 1.1 L Seg Neutrophils % INR APTT Activated Clotting Time POC ABG pH POC ABG pO2 Sodium Potassium Chloride Carbon Dioxide BUN 51 H Creatinine 3.7 H Glucose 132 H POC Glucose 211 H Uric Acid Calcium AST ALT Total Creatine Kinase Albumin Urine Creatinine Urine Chloride Crossmatch 12/05/16 12/05/16 12/05/16 08:30 11:46 22:02 WBC RBC Hgb Hct Plt Count Lymph % (Auto) [place] % (Auto) Eos % (Auto) Lymph # Seg Neutrophils % INR APTT Activated Clotting Time POC ABG pH POC ABG pO2 Sodium Potassium Chloride Carbon Dioxide BUN Creatinine Glucose POC Glucose 140 H 225 H 165 H Uric Acid Calcium AST ALT Total Creatine Kinase Albumin Urine Creatinine Urine Chloride Crossmatch 12/06/16 12/06/16 09:10 09:10 WBC RBC Hgb Hct Plt Count Lymph % (Auto) [place] % (Auto) Eos % (Auto) Lymph # Seg Neutrophils % INR APTT Activated Clotting Time POC ABG pH POC ABG pO2 Sodium Potassium Chloride 97.6 L Carbon Dioxide BUN 50 H Creatinine 3.8 H Glucose 126 H POC Glucose Uric Acid 10.0 H Calcium AST ALT Total Creatine Kinase Albumin Urine Creatinine Urine Chloride Crossmatch
[2016-12-07 09:29] LABS: BUN/Creatinine Ratio 12.38; Calcium 9.3 mg/dL (8.4-10.2); Chloride 97.9 mmol/L (98-107); Potassium 4.8 mmol/L (3.6-5.0)
--- NOTE | 2016-12-07 09:41 | Progress Note ---
Assessment and Plan Altered mental status -resolved Head CT shows no acute intracranial process Volume overload Hyperkalemia -resolved Coronary artery disease with prior CABG Right and LHC findings: moderate to severe elevated left and right heart filling pressures; moderate to severe pulmonary HTN 3 vessel disease ESTRADA to LAD patent SVG x 2 occluded (Diag and OM) subtotal occlusion of proximal segment of SVG to RCA treated with a drug eluting stent EF 40-45% Acute renal failure secondary to contrast nephropathy Acute drop in H&H s/p blood transfusion Ischemic Cardiomyopathy Hypertension Deconditioning Continue medical therapy for coronary artery disease, including dual oral antiplatelet therapy for recent coronary stent. Awaits nephrology recommendations. Subjective Date of service: 12/07/16 Principal diagnosis: CAD; Acute Encephalopathy Interval history: Patient reports distended abdomen, edema upper and lower extremities and decreased urine output. Creatinine elevated from 3.7 yesterday to 4.2 today. Objective Vital Signs Temp Pulse Pulse Pulse Resp BP BP 12/07/16 06:43 98.2 F 0 L 67 20 118/64 12/07/16 01:21 98.3 F 0 L 65 20 130/58 12/06/16 23:29 61 123/60 12/06/16 22:04 98.0 F 0 L 61 20 123/60 12/06/16 22:00 20 12/06/16 19:17 97.8 F 62 62 18 113/64 12/06/16 14:50 98.4 F 60 60 18 148/64 12/06/16 10:00 20 12/06/16 09:37 98.1 F 62 62 18 134/74 Pulse Ox 12/07/16 06:43 94 12/07/16 01:21 93 12/06/16 23:29 12/06/16 22:04 98 12/06/16 22:00 97 12/06/16 19:17 12/06/16 14:50 12/06/16 10:00 97 12/06/16 09:37 - Physical Examination General: No Apparent Distress HEENT: Positive: PERRL Neck: Positive: trachea midline Cardiac: Positive: Reg Rate and Rhythm Neuro: Positive: Weakness Abdomen: Positive: Distended Extremities: Present: +1 Edema - Labs and Meds Comprehensive Metabolic Panel 12/06/16 12/07/16 Range/Units 09:10 08:49 Sodium 139 139 (137-145) mmol/L Potassium 4.4 4.8 (3.6-5.0) mmol/L Chloride 97.6 L 97.9 L (98-107) mmol/L Carbon Dioxide 26 23 (22-30) mmol/L BUN 50 H 52 H (7-17) mg/dL Creatinine 3.8 H 4.2 H (0.7-1.2) mg/dL Glucose 126 H 105 H (65-100) mg/dL Calcium 9.5 9.3 (8.4-10.2) mg/dL
--- NOTE | 2016-12-07 09:48 | Progress Note ---
Subjective Principal diagnosis: CAD; Acute Encephalopathy Interval history: Patient was seen today for follow-up and multiple renal-related issues She has been noted to have low urine output does complain of some abdominal discomfort Straight cath done yesterday and did not have much of urine output Patient denies any complaints of chest pain pressure or shortness of breath Events of 24 hours vitals labs intake output medications were reviewed Social history: Reviewed Family history: Reviewed Allergies: Reviewed Physical examination Vitals reviewed HEENT: Mild pallor no icterus Neck: Supple no JVD Chest: Clear to auscultation Heart: Regular rate and rhythm Abdomen soft nontender no renal bruit no CVA tenderness, dullness in the flank Extremity: Mild edema right skin Assessment and plan Acute kidney injury patient appears to have worsening of renal function, urine output has markedly declined Her Lasix and albumen has already been discontinued, patient likely may require renal replacement therapy in my opinion Ultrasonogram shows some evidence of ascites kidney is unremarkable We had a detailed discussion with patient as well as her at bedside today Plan is to start renal replacement therapy with the Vas-Cath as patient's urine output has markedly declined at renal function is rapidly deteriorating Patient as well as the agrees to start with renal replacement therapy procedure and procedure related complications were also discussed with patient Patient does appear to have ascites and in my opinion will benefit from GI evaluation and further workup unless it is felt to be due to right-sided heart failure. Cardiology to comment She will need more labs today Urine sodium was a little lower side only 18 Patient likely has acute tubular necrosis resulting from renal ischemia and radiocontrast Her renal prognosis is currently guarded to poor She should not be discharged with declining renal function at this time Will need daily labs I have discussed with patient about dialysis access as well as hemodialysis process The pressure is adequately controlled Patient was adequately counseled and educated regarding renal-related issues All renal-related questions were answered We'll continue to follow and make recommendation from renal standpoint Objective - Vital Signs Vital signs: Vital Signs - 12hr 12/06/16 12/06/16 12/06/16 22:00 22:04 23:29 Temperature 98.0 F Pulse Rate 61 Pulse Rate [ 0 L From Monitor] Pulse Rate [ 61 Right Radial] Respiratory 20 20 Rate Blood Pressure 123/60 Blood Pressure 123/60 [Right Arm] O2 Sat by Pulse 97 98 Oximetry 12/07/16 12/07/16 01:21 06:43 Temperature 98.3 F 98.2 F Pulse Rate Pulse Rate [ 0 L 0 L From Monitor] Pulse Rate [ 65 67 Right Radial] Respiratory 20 20 Rate Blood Pressure Blood Pressure 130/58 118/64 [Right Arm] O2 Sat by Pulse 93 94 Oximetry - Lab 12/05/16 07:54 12/07/16 08:49 Most recent lab results Calcium 9.3 mg/dL (8.4-10.2) 12/07/16 08:49 Urine Creatinine 295.3 mg/dL (0.1-20.0) H 11/24/16 21:57 Urine Sodium 18 mEq/L 11/24/16 21:57
[2016-12-07] MEDS: IMDUR PO SCH (09:53)
[2016-12-07] MEDS: COREG PO SCH ×2 (09:54→23:12)
[2016-12-07] MEDS: PLAVIX PO SCH (09:54)
[2016-12-07] MEDS: ECOTRIN PO SCH (09:54)
[2016-12-07] MEDS: PROCARDIA XL PO SCH ×2 (09:54→23:11)
[2016-12-07] MEDS: PEPCID PO SCH (09:54)
[2016-12-07] MEDS: HEPARIN SUB-Q SCH ×2 (09:55→23:13)
[2016-12-07 11:16] LABS: Uric Acid 10.3 mg/dL (3.5-7.6)
[2016-12-07] MEDS ORDERED: NACL 0.9% 100 ML IV PRN (12:39)
[2016-12-07 17:45] LABS: Bilirubin,Urine NEG (Negative); Blood,Urine NEG (Negative); Ketones,Urine NEG (Negative); Leukocyte Esterase,Urine NEG (Negative); Nitrite,Urine NEG (Negative); Urobilinogen,Urine < 2.0 mg/dL (<2.0)
--- NOTE | 2016-12-07 19:33 | Progress Note ---
Assessment and Plan Patient awake. No complaint of chest pain or shortness of breath..Patient is on room air and O2 saturation 91%.Recommend to stay on O2 2 litres. - Patient Problems (1) PATRIA (acute kidney injury) Current Visit: Yes Status: Acute Plan to address problem: Management as per nephrology. (2) Acute encephalopathy Current Visit: Yes Status: Acute Plan to address problem: Patient more alert. Encephalopathy improving. (3) Anemia Current Visit: Yes Status: Acute Qualifiers: Anemia type: A Iron deficiency anemia type: I Vitamin B12 deficiency anemia type: V Folate deficiency anemia type: F Bone marrow failure anemia type: B Hemolytic anemia type: H Other causes of anemia: O Chronic kidney disease stage: C Plan to address problem: Management as per primary care. (4) CAD (coronary artery disease) of artery bypass graft Current Visit: Yes Status: Acute Qualifiers: [place] vs. transplanted heart: N Associated angina: A Plan to address problem: Management as per cardiology. (5) Obesity (BMI 30-39.9) Current Visit: Yes Status: Acute Plan to address problem: Weight reduction diet. (6) Sleep apnea Current Visit: Yes Status: Acute Qualifiers: Sleep apnea type: S Plan to address problem: Possible sleep apnea. BIPAP standby in the room. Recommend sleep study as out patient. Subjective Date of service: 12/07/16 Principal diagnosis: CAD; Acute Encephalopathy Interval history: Patient awake. No complaint of chest pain or shortness of breath..Patient is on room air and O2 saturation 91%.Recommend to stay on O2 2 litres. Objective Vital Signs - 12hr 12/07/16 12/07/16 12/07/16 08:00 08:48 09:53 Temperature 97.5 F L Pulse Rate 66 76 Pulse Rate [ 67 Apical] Pulse Rate [ 67 From Monitor] Pulse Rate [ 67 Left Dorsalis Pedis] Pulse Rate [ 67 Left Radial] Pulse Rate [ 67 Right Dorsalis Pedis] Pulse Rate [ 67 Right Radial] Respiratory 18 Rate Blood Pressure 164/99 Blood Pressure 126/61 [Right Arm] O2 Sat by Pulse 93 Oximetry 12/07/16 12/07/16 12/07/16 10:00 12:00 16:00 Temperature 97.7 F 98.3 F Pulse Rate Pulse Rate [ 65 62 Apical] Pulse Rate [ 65 62 From Monitor] Pulse Rate [ 65 62 Left Dorsalis Pedis] Pulse Rate [ 65 62 Left Radial] Pulse Rate [ 65 62 Right Dorsalis Pedis] Pulse Rate [ 65 62 Right Radial] Respiratory 20 20 Rate Blood Pressure Blood Pressure 135/60 120/60 [Right Arm] O2 Sat by Pulse 97 95 97 Oximetry Constitutional: no acute distress, other (somnolent) Eyes: non-icteric ENT: oropharynx moist Neck: supple, no lymphadenopathy Effort: normal Ascultation: Bilateral: diminished breath sounds, rales (scant in posterior bases) Cardiovascular: regular rate and rhythm Gastrointestinal: normoactive bowel sounds, soft, non-tender, non-distended Integumentary: normal Extremities: no cyanosis, no edema, pulses normal, no ischemia or petechiae Neurologic: normal mental status, non-focal exam, pupils equal and round, motor strength normal and Psychiatric: depressed CBC and BMP: 12/05/16 07:54 12/07/16 08:49 ABG, PT/INR, D-dimer: ABG POC ABG pH 7.356 (7.35-7.45) 11/25/16 22:20 POC ABG pCO2 38.1 (35-45) 11/25/16 22:20 POC ABG pO2 67 (80-105) L 11/25/16 22:20 POC ABG HCO3 21.3 11/25/16 22:20 POC ABG Total CO2 22 11/25/16 22:20 POC ABG O2 Sat 92 11/25/16 22:20 PT/INR, D-dimer PT 14.5 Sec. (12.2-14.9) 11/22/16 07:20 INR 1.14 (0.87-1.13) H 11/22/16 07:20 Abnormal lab findings: Abnormal Labs 11/22/16 11/22/16 11/22/16 07:20 07:20 07:20 WBC RBC 3.52 L Hgb Hct Plt Count Lymph % (Auto) [place] % (Auto) 11.5 H Eos % (Auto) Lymph # Seg Neutrophils % INR 1.14 H APTT Activated Clotting Time POC ABG pH POC ABG pO2 Sodium Potassium Chloride 108.0 H Carbon Dioxide BUN 25 H Creatinine 1.4 H Glucose POC Glucose Uric Acid Calcium AST ALT Total Creatine Kinase Albumin Urine WBC (Auto) Urine Creatinine Urine Chloride Crossmatch 0611/22/16 11/22/16 07:37 10:46 13:13 WBC RBC Hgb Hct Plt Count Lymph % (Auto) [place] % (Auto) Eos % (Auto) Lymph # Seg Neutrophils % INR APTT 37.7 H Activated Clotting Time 327 H 202 H POC ABG pH POC ABG pO2 Sodium Potassium Chloride Carbon Dioxide BUN Creatinine Glucose POC Glucose Uric Acid Calcium AST ALT Total Creatine Kinase Albumin Urine WBC (Auto) Urine Creatinine Urine Chloride Crossmatch 11/22/16 11/23/16 11/23/16 14:25 06:49 06:49 WBC 4.1 L RBC 2.74 L Hgb 7.7 L Hct 23.8 L D Plt Count 135 L Lymph % (Auto) [place] % (Auto) 13.8 H Eos % (Auto) Lymph # Seg Neutrophils % INR APTT Activated Clotting Time 175 H POC ABG pH POC ABG pO2 Sodium Potassium Chloride Carbon Dioxide BUN 27 H Creatinine 1.8 H Glucose 137 H POC Glucose Uric Acid Calcium 8.0 L AST ALT Total Creatine Kinase 183 H Albumin Urine WBC (Auto) Urine Creatinine Urine Chloride Crossmatch 11/23/16 11/23/16 11/23/16 11:07 12:45 17:32 WBC RBC 2.98 L Hgb 8.5 L Hct 26.3 L Plt Count Lymph % (Auto) [place] % (Auto) 13.2 H Eos % (Auto) Lymph # Seg Neutrophils % INR APTT Activated Clotting Time POC ABG pH POC ABG pO2 Sodium Potassium Chloride Carbon Dioxide BUN Creatinine Glucose POC Glucose 134 H 171 H Uric Acid Calcium AST ALT Total Creatine Kinase Albumin Urine WBC (Auto) Urine Creatinine Urine Chloride Crossmatch 11/23/16 11/24/16 11/24/16 21:24 05:28 05:28 WBC RBC Hgb 8.6 L Hct 26.8 L Plt Count Lymph % (Auto) [place] % (Auto) Eos % (Auto) Lymph # Seg Neutrophils % INR APTT Activated Clotting Time POC ABG pH POC ABG pO2 Sodium Potassium 5.9 H D Chloride Carbon Dioxide 19 L BUN 33 H Creatinine 2.7 H Glucose 162 H POC Glucose 174 H Uric Acid Calcium AST ALT Total Creatine Kinase Albumin Urine WBC (Auto) Urine Creatinine Urine Chloride Crossmatch 11/24/16 11/24/16 11/24/16 06:23 07:05 07:09 WBC RBC Hgb Hct Plt Count Lymph % (Auto) [place] % (Auto) Eos % (Auto) Lymph # Seg Neutrophils % INR APTT Activated Clotting Time POC ABG pH 7.264 L POC ABG pO2 33 L Sodium Potassium 5.8 H Chloride Carbon Dioxide 20 L BUN 33 H Creatinine 2.8 H Glucose 158 H POC Glucose 209 H Uric Acid Calcium AST 100 H ALT 118 H Total Creatine Kinase Albumin 3.5 L Urine WBC (Auto) Urine Creatinine Urine Chloride Crossmatch 11/24/16 11/24/16 11/24/16 07:19 08:50 11:45 WBC RBC Hgb Hct Plt Count Lymph % (Auto) [place] % (Auto) Eos % (Auto) Lymph # Seg Neutrophils % INR APTT Activated Clotting Time POC ABG pH 7.285 L POC ABG pO2 64 L Sodium Potassium Chloride Carbon Dioxide BUN Creatinine Glucose POC Glucose 193 H 169 H Uric Acid Calcium AST ALT Total Creatine Kinase Albumin Urine WBC (Auto) Urine Creatinine Urine Chloride Crossmatch 11/24/16 11/24/16 11/24/16 15:24 15:32 17:14 WBC RBC Hgb Hct Plt Count Lymph % (Auto) [place] % (Auto) Eos % (Auto) Lymph # Seg Neutrophils % INR APTT Activated Clotting Time POC ABG pH POC ABG pO2 Sodium Potassium 5.2 H Chloride Carbon Dioxide 20 L BUN 37 H Creatinine 3.0 H Glucose 144 H POC Glucose 195 H Uric Acid Calcium AST ALT Total Creatine Kinase Albumin Urine WBC (Auto) Urine Creatinine Urine Chloride Crossmatch See Detail 11/24/16 11/24/16 11/25/16 21:57 23:39 05:30 WBC RBC Hgb Hct Plt Count Lymph % (Auto) [place] % (Auto) Eos % (Auto) Lymph # Seg Neutrophils % INR APTT Activated Clotting Time POC ABG pH POC ABG pO2 Sodium Potassium Chloride Carbon Dioxide BUN Creatinine Glucose POC Glucose 112 H 129 H Uric Acid Calcium AST ALT Total Creatine Kinase Albumin Urine WBC (Auto) Urine Creatinine 295.3 H Urine Chloride 31.3 L Crossmatch 11/25/16 11/25/16 11/25/16 07:00 07:00 08:40 WBC RBC 3.30 L Hgb 9.5 L Hct 29.0 L Plt Count 119 L Lymph % (Auto) [place] % (Auto) 9.5 H Eos % (Auto) Lymph # Seg Neutrophils % 72.7 H INR APTT Activated Clotting Time POC ABG pH POC ABG pO2 Sodium Potassium Chloride 110.1 H Carbon Dioxide 18 L BUN 38 H Creatinine 2.6 H Glucose 123 H POC Glucose 129 H Uric Acid Calcium 8.2 L AST ALT Total Creatine Kinase Albumin Urine WBC (Auto) Urine Creatinine Urine Chloride Crossmatch 11/25/16 11/25/16 11/25/16 11:24 12:17 16:16 WBC RBC Hgb Hct Plt Count Lymph % (Auto) [place] % (Auto) Eos % (Auto) Lymph # Seg Neutrophils % INR APTT Activated Clotting Time POC ABG pH 7.327 L POC ABG pO2 Sodium Potassium Chloride Carbon Dioxide BUN Creatinine Glucose POC Glucose 142 H 151 H Uric Acid Calcium AST ALT Total Creatine Kinase Albumin Urine WBC (Auto) Urine Creatinine Urine Chloride Crossmatch 11/25/16 11/25/16 11/26/16 21:48 22:20 00:58 WBC RBC 3.23 L Hgb 9.2 L Hct 27.9 L Plt Count 119 L Lymph % (Auto) 10.2 L [place] % (Auto) 7.6 H Eos % (Auto) Lymph # 0.8 L Seg Neutrophils % 79.9 H INR APTT Activated Clotting Time POC ABG pH POC ABG pO2 67 L Sodium Potassium Chloride Carbon Dioxide BUN Creatinine Glucose POC Glucose 149 H Uric Acid Calcium AST ALT Total Creatine Kinase Albumin Urine WBC (Auto) Urine Creatinine Urine Chloride Crossmatch 11/26/16 11/26/16 11/26/16 06:11 07:40 11:28 WBC RBC Hgb Hct Plt Count Lymph % (Auto) [place] % (Auto) Eos % (Auto) Lymph # Seg Neutrophils % INR APTT Activated Clotting Time POC ABG pH POC ABG pO2 Sodium Potassium Chloride Carbon Dioxide 21 L BUN 41 H Creatinine 2.5 H Glucose 151 H POC Glucose 144 H 168 H Uric Acid Calcium 8.1 L AST ALT Total Creatine Kinase Albumin Urine WBC (Auto) Urine Creatinine Urine Chloride Crossmatch 11/26/16 11/27/16 11/27/16 15:50 00:03 03:45 WBC RBC Hgb Hct Plt Count Lymph % (Auto) [place] % (Auto) Eos % (Auto) Lymph # Seg Neutrophils % INR APTT Activated Clotting Time POC ABG pH POC ABG pO2 Sodium Potassium Chloride Carbon Dioxide BUN 46 H Creatinine 2.8 H Glucose 147 H POC Glucose 153 H 183 H Uric Acid Calcium 8.1 L AST ALT Total Creatine Kinase Albumin Urine WBC (Auto) Urine Creatinine Urine Chloride Crossmatch 11/27/16 11/27/16 11/27/16 06:26 07:32 11:53 WBC RBC Hgb Hct Plt Count Lymph % (Auto) [place] % (Auto) Eos % (Auto) Lymph # Seg Neutrophils % INR APTT Activated Clotting Time POC ABG pH POC ABG pO2 Sodium Potassium Chloride Carbon Dioxide BUN Creatinine Glucose POC Glucose 208 H 193 H 180 H Uric Acid Calcium AST ALT Total Creatine Kinase Albumin Urine WBC (Auto) Urine Creatinine Urine Chloride Crossmatch 11/27/16 11/27/16 11/28/16 16:42 21:51 08:13 WBC RBC Hgb Hct Plt Count Lymph % (Auto) [place] % (Auto) Eos % (Auto) Lymph # Seg Neutrophils % INR APTT Activated Clotting Time POC ABG pH POC ABG pO2 Sodium Potassium Chloride Carbon Dioxide BUN Creatinine Glucose POC Glucose 161 H 167 H 151 H Uric Acid Calcium AST ALT Total Creatine Kinase Albumin Urine WBC (Auto) Urine Creatinine Urine Chloride Crossmatch 11/28/16 11/28/16 11/28/16 10:01 10:01 12:30 WBC RBC Hgb 8.5 L Hct 25.3 L Plt Count Lymph % (Auto) [place] % (Auto) Eos % (Auto) Lymph # Seg Neutrophils % INR APTT Activated Clotting Time POC ABG pH POC ABG pO2 Sodium 136 L Potassium Chloride Carbon Dioxide BUN 50 H Creatinine 2.8 H Glucose 143 H POC Glucose 154 H Uric Acid Calcium 8.1 L AST ALT Total Creatine Kinase Albumin Urine WBC (Auto) Urine Creatinine Urine Chloride Crossmatch 11/28/16 11/28/16 11/28/16 15:22 16:55 20:40 WBC RBC Hgb Hct Plt Count Lymph % (Auto) [place] % (Auto) Eos % (Auto) Lymph # Seg Neutrophils % INR APTT Activated Clotting Time POC ABG pH POC ABG pO2 Sodium Potassium Chloride Carbon Dioxide BUN Creatinine Glucose POC Glucose 191 H 177 H Uric Acid Calcium AST ALT Total Creatine Kinase Albumin Urine WBC (Auto) Urine Creatinine Urine Chloride Crossmatch See Detail 11/29/16 11/29/16 11/29/16 07:18 07:18 07:31 WBC RBC Hgb 9.5 L Hct 28.2 L Plt Count Lymph % (Auto) [place] % (Auto) Eos % (Auto) Lymph # Seg Neutrophils % INR APTT Activated Clotting Time POC ABG pH POC ABG pO2 Sodium 136 L Potassium Chloride Carbon Dioxide BUN 51 H Creatinine 2.7 H Glucose 120 H POC Glucose 127 H Uric Acid Calcium 8.1 L AST ALT Total Creatine Kinase Albumin Urine WBC (Auto) Urine Creatinine Urine Chloride Crossmatch 11/29/16 11/29/16 11/29/16 12:49 17:35 20:31 WBC RBC Hgb Hct Plt Count Lymph % (Auto) [place] % (Auto) Eos % (Auto) Lymph # Seg Neutrophils % INR APTT Activated Clotting Time POC ABG pH POC ABG pO2 Sodium Potassium Chloride Carbon Dioxide BUN Creatinine Glucose POC Glucose 213 H 179 H 154 H Uric Acid Calcium AST ALT Total Creatine Kinase Albumin Urine WBC (Auto) Urine Creatinine Urine Chloride Crossmatch 11/30/16 11/30/16 11/30/16 08:25 09:52 16:07 WBC RBC Hgb Hct Plt Count Lymph % (Auto) [place] % (Auto) Eos % (Auto) Lymph # Seg Neutrophils % INR APTT Activated Clotting Time POC ABG pH POC ABG pO2 Sodium Potassium Chloride Carbon Dioxide BUN 52 H Creatinine 3.0 H Glucose 156 H POC Glucose 127 H 216 H Uric Acid Calcium AST ALT Total Creatine Kinase Albumin Urine WBC (Auto) Urine Creatinine Urine Chloride Crossmatch 11/30/16 12/01/16 12/01/16 20:45 08:34 08:48 WBC RBC Hgb Hct Plt Count Lymph % (Auto) [place] % (Auto) Eos % (Auto) Lymph # Seg Neutrophils % INR APTT Activated Clotting Time POC ABG pH POC ABG pO2 Sodium 136 L Potassium Chloride Carbon Dioxide BUN 50 H Creatinine 3.0 H Glucose 124 H POC Glucose 197 H 136 H Uric Acid Calcium AST ALT Total Creatine Kinase Albumin Urine WBC (Auto) Urine Creatinine Urine Chloride Crossmatch 12/01/16 12/01/16 12/01/16 11:35 16:56 22:08 WBC RBC Hgb Hct Plt Count Lymph % (Auto) [place] % (Auto) Eos % (Auto) Lymph # Seg Neutrophils % INR APTT Activated Clotting Time POC ABG pH POC ABG pO2 Sodium Potassium Chloride Carbon Dioxide BUN Creatinine Glucose POC Glucose 205 H 210 H 157 H Uric Acid Calcium AST ALT Total Creatine Kinase Albumin Urine WBC (Auto) Urine Creatinine Urine Chloride Crossmatch 12/02/16 12/02/16 12/02/16 05:52 08:47 15:16 WBC RBC Hgb Hct Plt Count Lymph % (Auto) [place] % (Auto) Eos % (Auto) Lymph # Seg Neutrophils % INR APTT Activated Clotting Time POC ABG pH POC ABG pO2 Sodium Potassium Chloride Carbon Dioxide BUN 48 H Creatinine 2.7 H Glucose 136 H POC Glucose 134 H 226 H Uric Acid Calcium AST ALT Total Creatine Kinase Albumin Urine WBC (Auto) Urine Creatinine Urine Chloride Crossmatch 12/02/16 12/03/16 12/03/16 22:53 05:58 05:58 WBC 4.2 L RBC 3.37 L Hgb 9.7 L Hct 29.4 L Plt Count Lymph % (Auto) [place] % (Auto) Eos % (Auto) Lymph # Seg Neutrophils % INR APTT Activated Clotting Time POC ABG pH POC ABG pO2 Sodium Potassium Chloride Carbon Dioxide BUN 47 H Creatinine 2.7 H Glucose 142 H POC Glucose 235 H Uric Acid Calcium AST ALT Total Creatine Kinase Albumin Urine WBC (Auto) Urine Creatinine Urine Chloride Crossmatch 12/03/16 12/03/16 12/03/16 13:04 16:47 21:50 WBC RBC Hgb Hct Plt Count Lymph % (Auto) [place] % (Auto) Eos % (Auto) Lymph # Seg Neutrophils % INR APTT Activated Clotting Time POC ABG pH POC ABG pO2 Sodium Potassium Chloride Carbon Dioxide BUN Creatinine Glucose POC Glucose 135 H 140 H 170 H Uric Acid Calcium AST ALT Total Creatine Kinase Albumin Urine WBC (Auto) Urine Creatinine Urine Chloride Crossmatch 12/04/16 12/04/16 12/04/16 07:26 12:21 16:43 WBC RBC Hgb Hct Plt Count Lymph % (Auto) [place] % (Auto) Eos % (Auto) Lymph # Seg Neutrophils % INR APTT Activated Clotting Time POC ABG pH POC ABG pO2 Sodium Potassium Chloride Carbon Dioxide BUN Creatinine Glucose POC Glucose 145 H 203 H 210 H Uric Acid Calcium AST ALT Total Creatine Kinase Albumin Urine WBC (Auto) Urine Creatinine Urine Chloride Crossmatch 12/04/16 12/05/16 12/05/16 21:41 07:54 07:54 WBC RBC 3.10 L Hgb 9.0 L Hct 26.9 L Plt Count Lymph % (Auto) [place] % (Auto) 13.8 H Eos % (Auto) 5.3 H Lymph # 1.1 L Seg Neutrophils % INR APTT Activated Clotting Time POC ABG pH POC ABG pO2 Sodium Potassium Chloride Carbon Dioxide BUN 51 H Creatinine 3.7 H Glucose 132 H POC Glucose 211 H Uric Acid Calcium AST ALT Total Creatine Kinase Albumin Urine WBC (Auto) Urine Creatinine Urine Chloride Crossmatch 12/05/16 12/05/16 12/05/16 08:30 11:46 22:02 WBC RBC Hgb Hct Plt Count Lymph % (Auto) [place] % (Auto) Eos % (Auto) Lymph # Seg Neutrophils % INR APTT Activated Clotting Time POC ABG pH POC ABG pO2 Sodium Potassium Chloride Carbon Dioxide BUN Creatinine Glucose POC Glucose 140 H 225 H 165 H Uric Acid Calcium AST ALT Total Creatine Kinase Albumin Urine WBC (Auto) Urine Creatinine Urine Chloride Crossmatch 12/06/16 12/06/16 12/06/16 08:17 09:10 09:10 WBC RBC Hgb Hct Plt Count Lymph % (Auto) [place] % (Auto) Eos % (Auto) Lymph # Seg Neutrophils % INR APTT Activated Clotting Time POC ABG pH POC ABG pO2 Sodium Potassium Chloride 97.6 L Carbon Dioxide BUN 50 H Creatinine 3.8 H Glucose 126 H POC Glucose 166 H Uric Acid 10.0 H Calcium AST ALT Total Creatine Kinase Albumin Urine WBC (Auto) Urine Creatinine Urine Chloride Crossmatch 12/06/16 12/06/16 12/06/16 12:18 17:39 22:31 WBC RBC Hgb Hct Plt Count Lymph % (Auto) [place] % (Auto) Eos % (Auto) Lymph # Seg Neutrophils % INR APTT Activated Clotting Time POC ABG pH POC ABG pO2 Sodium Potassium Chloride Carbon Dioxide BUN Creatinine Glucose POC Glucose 188 H 176 H 157 H Uric Acid Calcium AST ALT Total Creatine Kinase Albumin Urine WBC (Auto) Urine Creatinine Urine Chloride Crossmatch 12/07/16 12/07/16 12/07/16 08:48 08:49 17:25 WBC RBC Hgb Hct Plt Count Lymph % (Auto) [place] % (Auto) Eos % (Auto) Lymph # Seg Neutrophils % INR APTT Activated Clotting Time POC ABG pH POC ABG pO2 Sodium Potassium Chloride 97.9 L Carbon Dioxide BUN 52 H Creatinine 4.2 H Glucose 105 H POC Glucose Uric Acid 10.3 H Calcium AST ALT Total Creatine Kinase 188 H Albumin Urine WBC (Auto) 9.0 H Urine Creatinine Urine Chloride Crossmatch 12/07/16 17:25 WBC RBC Hgb Hct Plt Count Lymph % (Auto) [place] % (Auto) Eos % (Auto) Lymph # Seg Neutrophils % INR APTT Activated Clotting Time POC ABG pH POC ABG pO2 Sodium Potassium Chloride Carbon Dioxide BUN Creatinine Glucose POC Glucose Uric Acid Calcium AST ALT Total Creatine Kinase Albumin Urine WBC (Auto) Urine Creatinine 336.8 H Urine Chloride Crossmatch
[2016-12-07] MEDS: ZOFRAN IV PRN (20:33)
--- NOTE | 2016-12-08 07:39 | Progress Note ---
Subjective Principal diagnosis: CAD; Acute Encephalopathy Objective - Vital Signs Vital signs: Vital Signs - 12hr 12/07/16 12/07/16 12/08/16 20:00 23:12 00:00 Temperature 98.7 F 98.2 F Pulse Rate 62 Pulse Rate [ 62 63 Apical] Pulse Rate [ 62 63 From Monitor] Pulse Rate [ 62 63 Left Dorsalis Pedis] Pulse Rate [ 62 63 Left Radial] Pulse Rate [ 62 63 Right Dorsalis Pedis] Pulse Rate [ 62 63 Right Radial] Respiratory 20 20 Rate Blood Pressure 115/61 Blood Pressure 115/61 117/59 [Right Arm] O2 Sat by Pulse 95 95 Oximetry 12/08/16 05:48 Temperature 98.2 F Pulse Rate Pulse Rate [ 62 Apical] Pulse Rate [ 62 From Monitor] Pulse Rate [ 62 Left Dorsalis Pedis] Pulse Rate [ 62 Left Radial] Pulse Rate [ 62 Right Dorsalis Pedis] Pulse Rate [ 62 Right Radial] Respiratory 20 Rate Blood Pressure Blood Pressure 111/55 [Right Arm] O2 Sat by Pulse 93 Oximetry - Lab 12/05/16 07:54 12/07/16 08:49 Most recent lab results Calcium 9.3 mg/dL (8.4-10.2) 12/07/16 08:49 Urine Creatinine 336.8 mg/dL (0.1-20.0) H 12/07/16 17:25 Urine Sodium 13 mEq/L 12/07/16 17:25
--- NOTE | 2016-12-08 08:21 | XRay Report ---
KUB: 12/07/16 17:53:00 CLINICAL: Abdominal distention. FINDINGS: Obese body habitus. Mild distention of the transverse colon and stomach. No small bowel distention. Mild gas in the rectum. Surgical clips in the right upper quadrant. No mass or suspicious calcifications. Arthritis of the hips. IMPRESSION: Negative abdomen with nonspecific distention of the transverse colon.
--- NOTE | 2016-12-08 08:37 | Event Note ---
Date: 12/08/16 This is a 56 year old female with multiple comorbidities including acute kidney injury. Her renal function and urine output have both been acutely declining. Nephrology has requested a Vas Cath placement. This will be done today. Relevant labs and history were reviewed.
[2016-12-08 08:38] LABS: Calcium 9.3 mg/dL (8.4-10.2); Chloride 99.3 mmol/L (98-107)
--- NOTE | 2016-12-08 09:30 | Progress Note ---
Subjective Principal diagnosis: CAD; Acute Encephalopathy Interval history: Patient was seen today for follow-up on multiple renal related issues She still continues to complain of some abdominal discomfort and distention Events of 24 hours vitals labs intake output medications were reviewed Patient is currently and uric She is currently pending Vas-Cath placement for initiation of renal replacement therapy Social history: Reviewed Family history: Reviewed Allergies: Reviewed Physical examination Vitals reviewed HEENT: Mild pallor no icterus Neck: Supple no JVD Chest: Clear to auscultation Heart: Regular rate and rhythm Abdomen soft nontender dullness in the flank some abdominal wall edema Extremity : Mild edema right skin Assessment and plan Acute kidney injury patient appears to have worsening of renal function, urine output has markedly declined Ultrasonogram shows evidence of chronic kidney disease/baseline creatinine however is around 1.4 Patient will need to be initiated on renal replacement therapy pending Vas-Cath placement Likely she will require daily dialysis for next few days to be evaluated in the morning as well Taken off Lasix as well as albumin which she was on/ urine protein was approximately 100 mg She does appear to have ascites that needs to be further worked up Patient agrees to proceed with renal placement therapy Likely etiology of her renal failure appears to be due to radiocontrast nephropathy rule out other causes some labs currently pending Patient as well as agreed for initiation renal placement therapy knowing the risk and benefit Would avoid any form of nephrotoxic medication Monitor for renal function recovery We'll continue to follow and make recommendation from renal standpoint All renal-related questions were answered Objective - Vital Signs Vital signs: Vital Signs - 12hr 12/07/16 12/08/16 12/08/16 23:12 00:00 05:48 Temperature 98.2 F 98.2 F Pulse Rate 62 Pulse Rate [ 63 62 Apical] Pulse Rate [ 63 62 From Monitor] Pulse Rate [ 63 62 Left Dorsalis Pedis] Pulse Rate [ 63 62 Left Radial] Pulse Rate [ 63 62 Right Dorsalis Pedis] Pulse Rate [ 63 62 Right Radial] Respiratory 20 20 Rate Blood Pressure 115/61 Blood Pressure 117/59 111/55 [Right Arm] O2 Sat by Pulse 95 93 Oximetry 12/08/16 08:00 Temperature Pulse Rate 63 Pulse Rate [ Apical] Pulse Rate [ From Monitor] Pulse Rate [ Left Dorsalis Pedis] Pulse Rate [ Left Radial] Pulse Rate [ Right Dorsalis Pedis] Pulse Rate [ Right Radial] Respiratory Rate Blood Pressure Blood Pressure [Right Arm] O2 Sat by Pulse Oximetry - Lab 12/05/16 07:54 12/08/16 08:05 Most recent lab results Calcium 9.3 mg/dL (8.4-10.2) 12/08/16 08:05 Urine Creatinine 336.8 mg/dL (0.1-20.0) H 12/07/16 17:25 Urine Sodium 13 mEq/L 12/07/16 17:25
--- NOTE | 2016-12-08 09:40 | Progress Note ---
Assessment and Plan Altered mental status -resolved Head CT shows no acute intracranial process Volume overload Hyperkalemia -resolved Coronary artery disease with prior CABG Right and LHC findings: moderate to severe elevated left and right heart filling pressures; moderate to severe pulmonary HTN 3 vessel disease ESTRADA to LAD patent SVG x 2 occluded (Diag and OM) subtotal occlusion of proximal segment of SVG to RCA treated with a drug eluting stent EF 40-45% Acute renal failure secondary to contrast nephropathy Acute drop in H&H s/p blood transfusion Ischemic Cardiomyopathy Hypertension Deconditioning Continue medical therapy for coronary artery disease, including dual oral antiplatelet therapy for recent coronary stent. Subjective Date of service: 12/08/16 Principal diagnosis: CAD; Acute Encephalopathy Interval history: Patient has multiple comorbidities, hospitalist agrees to take over primary care needs. She denies chest pain and shortness of breath. Awaits vas-cath placement. Objective Vital Signs Temp Pulse Pulse Pulse Pulse Pulse Pulse 12/08/16 08:00 63 12/08/16 05:48 98.2 F 62 62 62 62 62 12/08/16 00:00 98.2 F 63 63 63 63 63 12/07/16 23:12 62 12/07/16 20:00 98.7 F 62 62 62 62 62 12/07/16 16:00 98.3 F 62 62 62 62 62 12/07/16 12:00 97.7 F 65 65 65 65 65 12/07/16 10:00 12/07/16 09:53 76 Pulse Resp BP BP Pulse Ox 12/08/16 08:00 12/08/16 05:48 62 20 111/55 93 12/08/16 00:00 63 20 117/59 95 12/07/16 23:12 115/61 12/07/16 20:00 62 20 115/61 95 12/07/16 16:00 62 20 120/60 97 12/07/16 12:00 65 20 135/60 95 12/07/16 10:00 97 12/07/16 09:53 164/99 - Physical Examination General: No Apparent Distress Neck: Positive: trachea midline Cardiac: Positive: Reg Rate and Rhythm Lungs: Positive: Decreased Breath Sounds Neuro: Positive: Weakness Abdomen: Positive: Distended Extremities: Present: +1 Edema - Labs and Meds Comprehensive Metabolic Panel 12/08/16 Range/Units 08:05 Sodium 141 (137-145) mmol/L Potassium 5.0 (3.6-5.0) mmol/L Chloride 99.3 (98-107) mmol/L Carbon Dioxide 28 (22-30) mmol/L BUN 55 H (7-17) mg/dL Creatinine 5.0 H (0.7-1.2) mg/dL Glucose 142 H (65-100) mg/dL Calcium 9.3 (8.4-10.2) mg/dL
[2016-12-08] MEDS: COREG PO SCH ×2 (10:22→23:41)
[2016-12-08] MEDS: PROCARDIA XL PO SCH ×2 (10:24→23:41)
[2016-12-08] MEDS: IMDUR PO SCH (10:30)
[2016-12-08] MEDS: HEPARIN SUB-Q SCH ×2 (10:31→23:41)
[2016-12-08] MEDS: ECOTRIN PO SCH (10:33)
[2016-12-08] MEDS: PEPCID PO SCH (10:34)
[2016-12-08] MEDS: PLAVIX PO SCH (11:57)
--- NOTE | 2016-12-08 12:41 | Progress Note ---
Assessment and Plan (1) Acute encephalopathy Current Visit: Yes Status: Acute Plan to address problem: - ventilation improved and can not blame on CO2 narcosis - suspect may be depression related element and may benefit from psychiatric evaluation - CT brain negative for acute process - continue qhs BIPAP for likely SDB (2) PATRIA (acute kidney injury) Current Visit: Yes Status: Acute Plan to address problem: - element of contrast induced nephropathy - nephrology evaluation ongoing - follow I's & O's and electrolytes - tentatively to begin dialysis (3) Anemia Current Visit: Yes Status: Acute Qualifiers: Anemia type: A Iron deficiency anemia type: I Vitamin B12 deficiency anemia type: V Folate deficiency anemia type: F Bone marrow failure anemia type: B Hemolytic anemia type: H Other causes of anemia: O Chronic kidney disease stage: C Plan to address problem: - likely of chronic disease - iron studies - no acute indication for transfusion (4) CAD (coronary artery disease) of artery bypass graft Current Visit: Yes Status: Acute Qualifiers: [place] vs. 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 (5) Discharge planning issues Current Visit: Yes Status: Acute Plan to address problem: - to remains on telemetry; hopefully no volume overload issues down the line Subjective Date of service: 12/08/16 Principal diagnosis: CAD; Acute Encephalopathy Interval history: Seen and examined at bedside; 24 hour events reviewed; nursing and respiratory care staff consulted; no adverse overnight events reported to me; still with flat affect mostly; denies acute chest pains or increased SOB; No N/V/F/C; PATRIA is worsening with reduced urine output Objective Vital Signs - 12hr 12/08/16 12/08/16 12/08/16 05:48 08:00 09:53 Temperature 98.2 F 98.1 F Pulse Rate 63 Pulse Rate [ 62 Apical] Pulse Rate [ 62 From Monitor] Pulse Rate [ 62 Left Dorsalis Pedis] Pulse Rate [ 62 62 Left Radial] Pulse Rate [ 62 Right Dorsalis Pedis] Pulse Rate [ 62 Right Radial] Respiratory 20 16 Rate Blood Pressure 119/62 [Left Radial Artery] Blood Pressure 111/55 [Right Arm] O2 Sat by Pulse 93 0 L Oximetry Constitutional: no acute distress, other (somnolent) Eyes: non-icteric ENT: oropharynx moist Neck: supple, no lymphadenopathy Effort: normal Ascultation: Bilateral: diminished breath sounds, rales (scant in posterior bases) Cardiovascular: regular rate and rhythm Gastrointestinal: normoactive bowel sounds, soft, non-tender, non-distended Integumentary: normal Extremities: no cyanosis, no edema, pulses normal, no ischemia or petechiae Neurologic: normal mental status, non-focal exam, pupils equal and round, motor strength normal and Psychiatric: depressed CBC and BMP: 12/10/16 06:00 12/11/16 06:02 ABG, PT/INR, D-dimer: ABG POC ABG pH 7.356 (7.35-7.45) 11/25/16 22:20 POC ABG pCO2 38.1 (35-45) 11/25/16 22:20 POC ABG pO2 67 (80-105) L 11/25/16 22:20 POC ABG HCO3 21.3 11/25/16 22:20 POC ABG Total CO2 22 11/25/16 22:20 POC ABG O2 Sat 92 11/25/16 22:20 PT/INR, D-dimer PT 14.5 Sec. (12.2-14.9) 11/22/16 07:20 INR 1.14 (0.87-1.13) H 11/22/16 07:20 Abnormal lab findings: Abnormal Labs 11/22/16 11/22/16 11/22/16 07:20 07:20 07:20 WBC RBC 3.52 L Hgb Hct Plt Count Lymph % (Auto) Casey % (Auto) 11.5 H Eos % (Auto) Lymph # Seg Neutrophils % INR 1.14 H APTT Activated Clotting Time POC ABG pH POC ABG pO2 Sodium Potassium Chloride 108.0 H Carbon Dioxide BUN 25 H Creatinine 1.4 H Glucose POC Glucose Uric Acid Calcium AST ALT Total Creatine Kinase Albumin Urine WBC (Auto) Urine Creatinine Urine Chloride Crossmatch 11/22/16 11/22/16 11/22/16 07:37 10:46 13:13 WBC RBC Hgb Hct Plt Count Lymph % (Auto) Casey % (Auto) Eos % (Auto) Lymph # Seg Neutrophils % INR APTT 37.7 H Activated Clotting Time 327 H 202 H POC ABG pH POC ABG pO2 Sodium Potassium Chloride Carbon Dioxide BUN Creatinine Glucose POC Glucose Uric Acid Calcium AST ALT Total Creatine Kinase Albumin Urine WBC (Auto) Urine Creatinine Urine Chloride Crossmatch 11/22/16 11/23/16 11/23/16 14:25 06:49 06:49 WBC 4.1 L RBC 2.74 L Hgb 7.7 L Hct 23.8 L D Plt Count 135 L Lymph % (Auto) Casey % (Auto) 13.8 H Eos % (Auto) Lymph # Seg Neutrophils % INR APTT Activated Clotting Time 175 H POC ABG pH POC ABG pO2 Sodium Potassium Chloride Carbon Dioxide BUN 27 H Creatinine 1.8 H Glucose 137 H POC Glucose Uric Acid Calcium 8.0 L AST ALT Total Creatine Kinase 183 H Albumin Urine WBC (Auto) Urine Creatinine Urine Chloride Crossmatch 11/23/16 11/23/16 11/23/16 11:07 12:45 17:32 WBC RBC 2.98 L Hgb 8.5 L Hct 26.3 L Plt Count Lymph % (Auto) Casey % (Auto) 13.2 H Eos % (Auto) Lymph # Seg Neutrophils % INR APTT Activated Clotting Time POC ABG pH POC ABG pO2 Sodium Potassium Chloride Carbon Dioxide BUN Creatinine Glucose POC Glucose 134 H 171 H Uric Acid Calcium AST ALT Total Creatine Kinase Albumin Urine WBC (Auto) Urine Creatinine Urine Chloride Crossmatch 11/23/16 11/24/16 11/24/16 21:24 05:28 05:28 WBC RBC Hgb 8.6 L Hct 26.8 L Plt Count Lymph % (Auto) Casey % (Auto) Eos % (Auto) Lymph # Seg Neutrophils % INR APTT Activated Clotting Time POC ABG pH POC ABG pO2 Sodium Potassium 5.9 H D Chloride Carbon Dioxide 19 L BUN 33 H Creatinine 2.7 H Glucose 162 H POC Glucose 174 H Uric Acid Calcium AST ALT Total Creatine Kinase Albumin Urine WBC (Auto) Urine Creatinine Urine Chloride Crossmatch 11/24/16 11/24/16 11/24/16 06:23 07:05 07:09 WBC RBC Hgb Hct Plt Count Lymph % (Auto) Casey % (Auto) Eos % (Auto) Lymph # Seg Neutrophils % INR APTT Activated Clotting Time POC ABG pH 7.264 L POC ABG pO2 33 L Sodium Potassium 5.8 H Chloride Carbon Dioxide 20 L BUN 33 H Creatinine 2.8 H Glucose 158 H POC Glucose 209 H Uric Acid Calcium AST 100 H ALT 118 H Total Creatine Kinase Albumin 3.5 L Urine WBC (Auto) Urine Creatinine Urine Chloride Crossmatch 11/24/16 11/24/16 11/24/16 07:19 08:50 11:45 WBC RBC Hgb Hct Plt Count Lymph % (Auto) Casey % (Auto) Eos % (Auto) Lymph # Seg Neutrophils % INR APTT Activated Clotting Time POC ABG pH 7.285 L POC ABG pO2 64 L Sodium Potassium Chloride Carbon Dioxide BUN Creatinine Glucose POC Glucose 193 H 169 H Uric Acid Calcium AST ALT Total Creatine Kinase Albumin Urine WBC (Auto) Urine Creatinine Urine Chloride Crossmatch 11/24/16 11/24/16 11/24/16 15:24 15:32 17:14 WBC RBC Hgb Hct Plt Count Lymph % (Auto) Casey % (Auto) Eos % (Auto) Lymph # Seg Neutrophils % INR APTT Activated Clotting Time POC ABG pH POC ABG pO2 Sodium Potassium 5.2 H Chloride Carbon Dioxide 20 L BUN 37 H Creatinine 3.0 H Glucose 144 H POC Glucose 195 H Uric Acid Calcium AST ALT Total Creatine Kinase Albumin Urine WBC (Auto) Urine Creatinine Urine Chloride Crossmatch See Detail 11/24/16 11/24/16 11/25/16 21:57 23:39 05:30 WBC RBC Hgb Hct Plt Count Lymph % (Auto) Casey % (Auto) Eos % (Auto) Lymph # Seg Neutrophils % INR APTT Activated Clotting Time POC ABG pH POC ABG pO2 Sodium Potassium Chloride Carbon Dioxide BUN Creatinine Glucose POC Glucose 112 H 129 H Uric Acid Calcium AST ALT Total Creatine Kinase Albumin Urine WBC (Auto) Urine Creatinine 295.3 H Urine Chloride 31.3 L Crossmatch 11/25/16 11/25/16 11/25/16 07:00 07:00 08:40 WBC RBC 3.30 L Hgb 9.5 L Hct 29.0 L Plt Count 119 L Lymph % (Auto) Casey % (Auto) 9.5 H Eos % (Auto) Lymph # Seg Neutrophils % 72.7 H INR APTT Activated Clotting Time POC ABG pH POC ABG pO2 Sodium Potassium Chloride 110.1 H Carbon Dioxide 18 L BUN 38 H Creatinine 2.6 H Glucose 123 H POC Glucose 129 H Uric Acid Calcium 8.2 L AST ALT Total Creatine Kinase Albumin Urine WBC (Auto) Urine Creatinine Urine Chloride Crossmatch 11/25/16 11/25/1617 11:24 12:17 16:16 WBC RBC Hgb Hct Plt Count Lymph % (Auto) Casey % (Auto) Eos % (Auto) Lymph # Seg Neutrophils % INR APTT Activated Clotting Time POC ABG pH 7.327 L POC ABG pO2 Sodium Potassium Chloride Carbon Dioxide BUN Creatinine Glucose POC Glucose 142 H 151 H Uric Acid Calcium AST ALT Total Creatine Kinase Albumin Urine WBC (Auto) Urine Creatinine Urine Chloride Crossmatch 11/25/16 11/25/16 11/26/16 21:48 22:20 00:58 WBC RBC 3.23 L Hgb 9.2 L Hct 27.9 L Plt Count 119 L Lymph % (Auto) 10.2 L Casey % (Auto) 7.6 H Eos % (Auto) Lymph # 0.8 L Seg Neutrophils % 79.9 H INR APTT Activated Clotting Time POC ABG pH POC ABG pO2 67 L Sodium Potassium Chloride Carbon Dioxide BUN Creatinine Glucose POC Glucose 149 H Uric Acid Calcium AST ALT Total Creatine Kinase Albumin Urine WBC (Auto) Urine Creatinine Urine Chloride Crossmatch 11/26/16 11/26/16 11/26/16 06:11 07:40 11:28 WBC RBC Hgb Hct Plt Count Lymph % (Auto) Casey % (Auto) Eos % (Auto) Lymph # Seg Neutrophils % INR APTT Activated Clotting Time POC ABG pH POC ABG pO2 Sodium Potassium Chloride Carbon Dioxide 21 L BUN 41 H Creatinine 2.5 H Glucose 151 H POC Glucose 144 H 168 H Uric Acid Calcium 8.1 L AST ALT Total Creatine Kinase Albumin Urine WBC (Auto) Urine Creatinine Urine Chloride Crossmatch 11/26/16 11/27/16 11/27/16 15:50 00:03 03:45 WBC RBC Hgb Hct Plt Count Lymph % (Auto) Casey % (Auto) Eos % (Auto) Lymph # Seg Neutrophils % INR APTT Activated Clotting Time POC ABG pH POC ABG pO2 Sodium Potassium Chloride Carbon Dioxide BUN 46 H Creatinine 2.8 H Glucose 147 H POC Glucose 153 H 183 H Uric Acid Calcium 8.1 L AST ALT Total Creatine Kinase Albumin Urine WBC (Auto) Urine Creatinine Urine Chloride Crossmatch 11/27/16 11/27/16 11/27/16 06:26 07:32 11:53 WBC RBC Hgb Hct Plt Count Lymph % (Auto) Casey % (Auto) Eos % (Auto) Lymph # Seg Neutrophils % INR APTT Activated Clotting Time POC ABG pH POC ABG pO2 Sodium Potassium Chloride Carbon Dioxide BUN Creatinine Glucose POC Glucose 208 H 193 H 180 H Uric Acid Calcium AST ALT Total Creatine Kinase Albumin Urine WBC (Auto) Urine Creatinine Urine Chloride Crossmatch 11/27/16 11/27/16 11/28/16 16:42 21:51 08:13 WBC RBC Hgb Hct Plt Count Lymph % (Auto) [place] % (Auto) Eos % (Auto) Lymph # Seg Neutrophils % INR APTT Activated Clotting Time POC ABG pH POC ABG pO2 Sodium Potassium Chloride Carbon Dioxide BUN Creatinine Glucose POC Glucose 161 H 167 H 151 H Uric Acid Calcium AST ALT Total Creatine Kinase Albumin Urine WBC (Auto) Urine Creatinine Urine Chloride Crossmatch 11/28/16 11/28/16 11/28/16 10:01 10:01 12:30 WBC RBC Hgb 8.5 L Hct 25.3 L Plt Count Lymph % (Auto) Casey % (Auto) Eos % (Auto) Lymph # Seg Neutrophils % INR APTT Activated Clotting Time POC ABG pH POC ABG pO2 Sodium 136 L Potassium Chloride Carbon Dioxide BUN 50 H Creatinine 2.8 H Glucose 143 H POC Glucose 154 H Uric Acid Calcium 8.1 L AST ALT Total Creatine Kinase Albumin Urine WBC (Auto) Urine Creatinine Urine Chloride Crossmatch 11/28/16 11/28/16 11/28/16 15:22 16:55 20:40 WBC RBC Hgb Hct Plt Count Lymph % (Auto) Casey % (Auto) Eos % (Auto) Lymph # Seg Neutrophils % INR APTT Activated Clotting Time POC ABG pH POC ABG pO2 Sodium Potassium Chloride Carbon Dioxide BUN Creatinine Glucose POC Glucose 191 H 177 H Uric Acid Calcium AST ALT Total Creatine Kinase Albumin Urine WBC (Auto) Urine Creatinine Urine Chloride Crossmatch See Detail 11/29/16 11/29/16 11/29/16 07:18 07:18 07:31 WBC RBC Hgb 9.5 L Hct 28.2 L Plt Count Lymph % (Auto) Casey % (Auto) Eos % (Auto) Lymph # Seg Neutrophils % INR APTT Activated Clotting Time POC ABG pH POC ABG pO2 Sodium 136 L Potassium Chloride Carbon Dioxide BUN 51 H Creatinine 2.7 H Glucose 120 H POC Glucose 127 H Uric Acid Calcium 8.1 L AST ALT Total Creatine Kinase Albumin Urine WBC (Auto) Urine Creatinine Urine Chloride Crossmatch 11/29/16 11/29/16 11/29/16 12:49 17:35 20:31 WBC RBC Hgb Hct Plt Count Lymph % (Auto) Casey % (Auto) Eos % (Auto) Lymph # Seg Neutrophils % INR APTT Activated Clotting Time POC ABG pH POC ABG pO2 Sodium Potassium Chloride Carbon Dioxide BUN Creatinine Glucose POC Glucose 213 H 179 H 154 H Uric Acid Calcium AST ALT Total Creatine Kinase Albumin Urine WBC (Auto) Urine Creatinine Urine Chloride Crossmatch 11/30/16 11/30/16 11/30/16 08:25 09:52 16:07 WBC RBC Hgb Hct Plt Count Lymph % (Auto) Casey % (Auto) Eos % (Auto) Lymph # Seg Neutrophils % INR APTT Activated Clotting Time POC ABG pH POC ABG pO2 Sodium Potassium Chloride Carbon Dioxide BUN 52 H Creatinine 3.0 H Glucose 156 H POC Glucose 127 H 216 H Uric Acid Calcium AST ALT Total Creatine Kinase Albumin Urine WBC (Auto) Urine Creatinine Urine Chloride Crossmatch 11/30/16 12/01/16 12/01/16 20:45 08:34 08:48 WBC RBC Hgb Hct Plt Count Lymph % (Auto) Casey % (Auto) Eos % (Auto) Lymph # Seg Neutrophils % INR APTT Activated Clotting Time POC ABG pH POC ABG pO2 Sodium 136 L Potassium Chloride Carbon Dioxide BUN 50 H Creatinine 3.0 H Glucose 124 H POC Glucose 197 H 136 H Uric Acid Calcium AST ALT Total Creatine Kinase Albumin Urine WBC (Auto) Urine Creatinine Urine Chloride Crossmatch 12/01/16 12/01/16 12/01/16 11:35 16:56 22:08 WBC RBC Hgb Hct Plt Count Lymph % (Auto) [place] % (Auto) Eos % (Auto) Lymph # Seg Neutrophils % INR APTT Activated Clotting Time POC ABG pH POC ABG pO2 Sodium Potassium Chloride Carbon Dioxide BUN Creatinine Glucose POC Glucose 205 H 210 H 157 H Uric Acid Calcium AST ALT Total Creatine Kinase Albumin Urine WBC (Auto) Urine Creatinine Urine Chloride Crossmatch 12/02/16 12/02/16 12/02/16 05:52 08:47 15:16 WBC RBC Hgb Hct Plt Count Lymph % (Auto) [place] % (Auto) Eos % (Auto) Lymph # Seg Neutrophils % INR APTT Activated Clotting Time POC ABG pH POC ABG pO2 Sodium Potassium Chloride Carbon Dioxide BUN 48 H Creatinine 2.7 H Glucose 136 H POC Glucose 134 H 226 H Uric Acid Calcium AST ALT Total Creatine Kinase Albumin Urine WBC (Auto) Urine Creatinine Urine Chloride Crossmatch 12/02/16 12/03/16 12/03/16 22:53 05:58 05:58 WBC 4.2 L RBC 3.37 L Hgb 9.7 L Hct 29.4 L Plt Count Lymph % (Auto) [place] % (Auto) Eos % (Auto) Lymph # Seg Neutrophils % INR APTT Activated Clotting Time POC ABG pH POC ABG pO2 Sodium Potassium Chloride Carbon Dioxide BUN 47 H Creatinine 2.7 H Glucose 142 H POC Glucose 235 H Uric Acid Calcium AST ALT Total Creatine Kinase Albumin Urine WBC (Auto) Urine Creatinine Urine Chloride Crossmatch 12/03/16 12/03/16 12/03/16 13:04 16:47 21:50 WBC RBC Hgb Hct Plt Count Lymph % (Auto) [place] % (Auto) Eos % (Auto) Lymph # Seg Neutrophils % INR APTT Activated Clotting Time POC ABG pH POC ABG pO2 Sodium Potassium Chloride Carbon Dioxide BUN Creatinine Glucose POC Glucose 135 H 140 H 170 H Uric Acid Calcium AST ALT Total Creatine Kinase Albumin Urine WBC (Auto) Urine Creatinine Urine Chloride Crossmatch 12/04/16 12/04/16 12/04/16 07:26 12:21 16:43 WBC RBC Hgb Hct Plt Count Lymph % (Auto) Casey % (Auto) Eos % (Auto) Lymph # Seg Neutrophils % INR APTT Activated Clotting Time POC ABG pH POC ABG pO2 Sodium Potassium Chloride Carbon Dioxide BUN Creatinine Glucose POC Glucose 145 H 203 H 210 H Uric Acid Calcium AST ALT Total Creatine Kinase Albumin Urine WBC (Auto) Urine Creatinine Urine Chloride Crossmatch 12/04/16 12/05/16 12/05/16 21:41 07:54 07:54 WBC RBC 3.10 L Hgb 9.0 L Hct 26.9 L Plt Count Lymph % (Auto) [place] % (Auto) 13.8 H Eos % (Auto) 5.3 H Lymph # 1.1 L Seg Neutrophils % INR APTT Activated Clotting Time POC ABG pH POC ABG pO2 Sodium Potassium Chloride Carbon Dioxide BUN 51 H Creatinine 3.7 H Glucose 132 H POC Glucose 211 H Uric Acid Calcium AST ALT Total Creatine Kinase Albumin Urine WBC (Auto) Urine Creatinine Urine Chloride Crossmatch 12/05/16 12/05/16 12/05/16 08:30 11:46 22:02 WBC RBC Hgb Hct Plt Count Lymph % (Auto) Casey % (Auto) Eos % (Auto) Lymph # Seg Neutrophils % INR APTT Activated Clotting Time POC ABG pH POC ABG pO2 Sodium Potassium Chloride Carbon Dioxide BUN Creatinine Glucose POC Glucose 140 H 225 H 165 H Uric Acid Calcium AST ALT Total Creatine Kinase Albumin Urine WBC (Auto) Urine Creatinine Urine Chloride Crossmatch 12/06/16 12/06/16 12/06/16 08:17 09:10 09:10 WBC RBC Hgb Hct Plt Count Lymph % (Auto) [place] % (Auto) Eos % (Auto) Lymph # Seg Neutrophils % INR APTT Activated Clotting Time POC ABG pH POC ABG pO2 Sodium Potassium Chloride 97.6 L Carbon Dioxide BUN 50 H Creatinine 3.8 H Glucose 126 H POC Glucose 166 H Uric Acid 10.0 H Calcium AST ALT Total Creatine Kinase Albumin Urine WBC (Auto) Urine Creatinine Urine Chloride Crossmatch 12/06/16 12/06/16 12/06/16 12:18 17:39 22:31 WBC RBC Hgb Hct Plt Count Lymph % (Auto) Casey % (Auto) Eos % (Auto) Lymph # Seg Neutrophils % INR APTT Activated Clotting Time POC ABG pH POC ABG pO2 Sodium Potassium Chloride Carbon Dioxide BUN Creatinine Glucose POC Glucose 188 H 176 H 157 H Uric Acid Calcium AST ALT Total Creatine Kinase Albumin Urine WBC (Auto) Urine Creatinine Urine Chloride Crossmatch 12/07/16 12/07/16 12/07/16 08:48 08:49 09:01 WBC RBC Hgb Hct Plt Count Lymph % (Auto) Casey % (Auto) Eos % (Auto) Lymph # Seg Neutrophils % INR APTT Activated Clotting Time POC ABG pH POC ABG pO2 Sodium Potassium Chloride 97.9 L Carbon Dioxide BUN 52 H Creatinine 4.2 H Glucose 105 H POC Glucose 107 H Uric Acid 10.3 H Calcium AST ALT Total Creatine Kinase 188 H Albumin Urine WBC (Auto) Urine Creatinine Urine Chloride Crossmatch 12/07/16 12/07/16 12/07/16 12:27 16:59 17:25 WBC RBC Hgb Hct Plt Count Lymph % (Auto) Casey % (Auto) Eos % (Auto) Lymph # Seg Neutrophils % INR APTT Activated Clotting Time POC ABG pH POC ABG pO2 Sodium Potassium Chloride Carbon Dioxide BUN Creatinine Glucose POC Glucose 163 H 124 H Uric Acid Calcium AST ALT Total Creatine Kinase Albumin Urine WBC (Auto) 9.0 H Urine Creatinine Urine Chloride Crossmatch 12/07/16 12/07/16 12/08/16 17:25 22:04 07:53 WBC RBC Hgb Hct Plt Count Lymph % (Auto) [place] % (Auto) Eos % (Auto) Lymph # Seg Neutrophils % INR APTT Activated Clotting Time POC ABG pH POC ABG pO2 Sodium Potassium Chloride Carbon Dioxide BUN Creatinine Glucose POC Glucose 133 H 168 H Uric Acid Calcium AST ALT Total Creatine Kinase Albumin Urine WBC (Auto) Urine Creatinine 336.8 H Urine Chloride Crossmatch 12/08/16 08:05 WBC RBC Hgb Hct Plt Count Lymph % (Auto) [place] % (Auto) Eos % (Auto) Lymph # Seg Neutrophils % INR APTT Activated Clotting Time POC ABG pH POC ABG pO2 Sodium Potassium Chloride Carbon Dioxide BUN 55 H Creatinine 5.0 H Glucose 142 H POC Glucose Uric Acid Calcium AST ALT Total Creatine Kinase Albumin Urine WBC (Auto) Urine Creatinine Urine Chloride Crossmatch
[2016-12-08] MEDS ORDERED: VANCOMYCIN/NS 1 GM/250 ML 1 GM/250 ML BAG IV ONE (14:45)
[2016-12-08] MEDS ORDERED: SUBLIMAZE ONE (15:01)
[2016-12-08] MEDS ORDERED: XYLOCAINE 2% INFILTRATI ONE (15:01)
[2016-12-08] MEDS ORDERED: VERSED ONE (15:01)
[2016-12-08] MEDS ORDERED: HEPARIN/NS 5000 UNIT/500ML(CATH LAB) 500 ML IR ONE (15:01)
[2016-12-08] MEDS: HEPARIN 10,000 UNITS/10 ML ONE ×2 (15:19→15:20)
[2016-12-08] MEDS ORDERED: HEPARIN IV PRN (16:55)
[2016-12-08] MEDS ORDERED: NACL 0.9% 100 ML IV PRN (16:56)
--- NOTE | 2016-12-08 17:08 | Gastroenterology Consultation ---
History of Present Illness - Reason for Consult Consult date: 12/08/16 abdominal distention Requesting physician: SANDRA MARTINEZ - History of Present Illness Patient is a 56 yo female with h/o ischemic cardiomyopathy initially presenting with AMS and volume overload. Patient reports symptoms of abdominal bloating since hospitalization. She denies h/o liver disease. She reports constipation during hospitalization. C/o nausea. Past History Past Medical History: anemia, CAD, heart failure, hypertension Social history: no significant social history Family history: no significant family history Medications and Allergies Allergies Allergy/AdvReac Type Severity Reaction Status Date / Time Penicillins Allergy Rash Verified 11/22/16 08:57 Home Medications Medication Instructions Recorded Confirmed Last Taken Type Aspirin [Aspirin TAB] 325 mg PO QDAY 11/22/16 11/22/16 11/22/16 History Carvedilol [Coreg] 25 mg PO BID 11/22/16 11/22/16 11/21/16 History Clopidogrel Bisulfate [Plavix] 75 mg PO DAILY 11/22/16 11/22/16 11/22/16 History Furosemide [Lasix] 20 mg PO BID 11/22/16 11/22/16 11/21/16 History ISOSORBIDE MONOnitrate [Imdur ER] 30 mg PO DAILY 11/22/16 11/22/16 11/21/16 History Insulin Glargine [Lantus] 10 unit SUB-Q QHS 11/22/16 11/22/16 11/21/16 History Losartan/Hydrochlorothiazide 1 each PO DAILY 11/22/16 11/22/16 11/21/16 History [Losartan-Hctz 100-25 mg Tab] Rosuvastatin (Nf) [Crestor] 10 mg PO QHS 11/22/16 11/22/16 11/21/16 History amLODIPine [Norvasc] 5 mg PO DAILY 11/22/16 11/22/16 11/21/16 History cloNIDine [Catapres] 0.1 mg PO DAILY 11/22/16 11/22/16 6 Months Ago History Active Meds: Active Medications Acetaminophen (Tylenol) 650 mg PO Q6H PRN PRN Reason: Pain, Mild (1-3) Last Admin: 12/06/16 05:01 Dose: 650 mg Aspirin (Ecotrin) 325 mg PO QDAY [facility] Last Admin: 12/08/16 10:33 Dose: 325 mg Atorvastatin Calcium (Lipitor) 40 mg PO QHS [facility] Last Admin: 12/07/16 23:11 Dose: 40 mg Carvedilol (Coreg) 25 mg PO BID [facility] Last Admin: 12/08/16 10:22 Dose: Not Given Clonidine HCl (Catapres) 0.1 mg PO Q4H PRN PRN Reason: SBP >150 Last Admin: 11/22/16 14:32 Dose: 0.1 mg Clopidogrel Bisulfate (Plavix) 75 mg PO DAILY [facility] Last Admin: 12/08/16 11:57 Dose: Not Given Famotidine (Pepcid) 20 mg PO QDAY [facility] Last Admin: 12/08/16 10:34 Dose: 20 mg Heparin Sodium (Porcine) (Heparin) 5,000 unit SUB-Q Q12HR [facility] Last Admin: 12/08/16 10:31 Dose: Not Given Heparin Sodium (Porcine) (Heparin) 5,000 unit IV GINNY PRN PRN Reason: hemodialysis Sodium Chloride (Nacl 0.9% 1000 Ml) 1,000 mls @ 50 mls/hr IV DIRECT [facility] Last Admin: 12/06/16 11:26 Dose: 50 mls/hr Sodium Chloride (Nacl 0.9%) 100 mls @ 999 mls/hr IV GINNY PRN PRN Reason: Hypotension Insulin Human Regular (Novolin R) 0 units SUB-Q ACHS ANGELLA PRN Reason: Protocol Last Admin: 12/08/16 11:57 Dose: Not Given Isosorbide Mononitrate (Imdur) 30 mg PO DAILY [facility] Last Admin: 12/08/16 10:30 Dose: Not Given Lactulose (Cephulac) 20 gm PO Q6H PRN PRN Reason: Constipation Last Admin: 12/03/16 04:26 Dose: 20 gm Lactulose (Cephulac) 200 gm DE ONCE PRN PRN Reason: Constipation Morphine Sulfate (Morphine) 4 mg IV Q4H PRN PRN Reason: Pain , Severe (7-10) Last Admin: 11/30/16 18:28 Dose: 4 mg Nifedipine (Procardia Xl) 30 mg PO Q12HR [facility] Last Admin: 12/08/16 10:24 Dose: Not Given Ondansetron HCl (Zofran) 4 mg IV Q8H PRN PRN Reason: Nausea And Vomiting Last Admin: 12/07/16 20:33 Dose: 4 mg Simethicone (Mylicon) 80 mg PO Q6H PRN PRN Reason: Gas pain Last Admin: 12/06/16 05:02 Dose: 80 mg Review of Systems - Review of Systems All systems: negative Constitutional: fatigue, weakness, poor appetite Exam - Constitutional Vital Signs: Temp Pulse Resp BP Pulse Ox 98.8 F 67 20 153/70 100 12/08/16 15:45 12/08/16 16:45 12/08/16 15:45 12/08/16 16:45 12/08/16 14:01 General appearance: no acute distress - EENT Eyes: PERRL, EOM intact - Respiratory Respiratory effort: normal Respiratory: bilateral: CTA - Cardiovascular Rhythm: regular Heart Sounds: Present: S1 & S2 Extremity abnormal: edema - Gastrointestinal General gastrointestinal: Present: non-tender, distended, hypoactive bowel sounds - Neurologic Neurological: alert and oriented x3 - Psychiatric Psychiatric: appropriate mood/affect - Labs CBC & Chem 7: 12/05/16 07:54 12/08/16 08:05 Lab Results: Laboratory Results - last 24 hr 12/07/16 12/07/16 12/07/16 09:01 12:27 16:59 Sodium Potassium Chloride Carbon Dioxide Anion Gap BUN Creatinine Estimated GFR BUN/Creatinine Ratio Glucose POC Glucose 107 H 163 H 124 H Calcium Urine Color Urine Turbidity Urine pH Ur Specific [place] Urine Protein Urine Glucose (UA) Urine Ketones Urine Blood Urine Nitrite Urine Bilirubin Urine Urobilinogen Ur Leukocyte Esterase Urine WBC (Auto) Urine RBC (Auto) U Epithel Cells (Auto) Amorphous Crystals Hyaline Casts Urine Creatinine Urine Sodium 12/07/16 12/07/16 12/07/16 17:25 17:25 22:04 Sodium Potassium Chloride Carbon Dioxide Anion Gap BUN Creatinine Estimated GFR BUN/Creatinine Ratio Glucose POC Glucose 133 H Calcium Urine Color Yellow Urine Turbidity Slightly-cloudy Urine pH 5.0 Ur Specific [place] 1.018 Urine Protein 100 mg/dl Urine Glucose (UA) Neg Urine Ketones Neg Urine Blood Neg Urine Nitrite Neg Urine Bilirubin Neg Urine Urobilinogen < 2.0 Ur Leukocyte Esterase Neg Urine WBC (Auto) 9.0 H Urine RBC (Auto) 1.0 U Epithel Cells (Auto) 5.0 Amorphous Crystals Few Hyaline Casts 22 Urine Creatinine 336.8 H Urine Sodium 13 12/08/16 12/08/16 12/08/16 07:53 08:05 12:17 Sodium 141 Potassium 5.0 Chloride 99.3 Carbon Dioxide 28 Anion Gap 19 BUN 55 H Creatinine 5.0 H Estimated GFR 11 BUN/Creatinine Ratio 11.00 Glucose 142 H POC Glucose 168 H 140 H Calcium 9.3 Urine Color Urine Turbidity Urine pH Ur Specific [place] Urine Protein Urine Glucose (UA) Urine Ketones Urine Blood Urine Nitrite Urine Bilirubin Urine Urobilinogen Ur Leukocyte Esterase Urine WBC (Auto) Urine RBC (Auto) U Epithel Cells (Auto) Amorphous Crystals Hyaline Casts Urine Creatinine Urine Sodium Assessment and Plan Abdominal distention - obtain KUB for possible ileus. Abdominal/RUQ US to evaluate for liver disease or ascites. Start bowel regimen daily. Further recommendations following radiology results.
[2016-12-08] MEDS ORDERED: NACL 0.9 (PRIMING MACHINE ONLY DIALYSIS) MC ONE (17:25)
--- NOTE | 2016-12-08 18:14 | Consultation ---
History of Present Illness - Reason for Consult Consult date: 12/08/16 Gen. medical management, hypertension, abdominal pain Requesting physician: ÓSCAR JORGENSEN - History of Present Illness Patient is a 56-year-old female with past medical history of CKD with baseline creatnine of 1.8, hyperlipidemia, hypertension CAD and also congestive heart failure with ejection fraction of 40-50% in 2013 and also ischemic cardiomyopathy. Presented for an outpatient cardiac catheterization chest without PCI of SVG to RCA with 99% to 0% with 3.0 mm DE stent. Patient was kept overnight in the hospital to monitor creatinine before discharge. Repeat labs in the morning did reveal an increase in creatinine around 2.7. Patient was also lethargic with altered sensorium and was placed in the ICU for close observation. She was also on nitro drip but with no fever blood pressure was adequately controlled. Subsequently the Lasix was discontinued and HERO inhibitor due to the rise in creatinine. Nephrology was consulted and also pulmonary aspiration and ICU observation. Due to rising creatinine and it was determined that the patient will benefit from dialysis. Patient was subsequent transferred out of the ICU to the floor she remained stable. We'll being consulted to assist with management of other medical conditions for this patient. This morning on my exam the patient remains lethargic but with no further encephalopathy noted. She is awaiting access for dialysis. She did complain of mild abdominal pain for which of consulted GI to further assess and also obtained a KUB. She reports no bowel movement past 2 days. Which is abnormal for her. Family is at the bedside and patient denies again any chest pain, nausea, vomiting or diarrhea. No bright red blood per rectum. ROS Constitutional: No fever, fatigue or weight loss. Skin: No rash. Eyes: No recent vision problems or eye pain. ENT: No congestion, ear pain, or sore throat. Endocrine: No thyroid problems. Cardiovascular: No chest pain. Respiratory: No cough, shortness of breath, congestion, or wheezing. Gastrointestinal: Abdominal pain, constipation, no nausea, vomiting, or diarrhea. Genitourinary: No dysuria. Musculoskeletal: No joint swelling. Neurologic: No seizures. Hematologic: No unusual bruising or bleeding. Psychiatric: No psychiatric problems, hallucinations or depression. All other systems reviewed and otherwise negative. Past History Past Medical History: anemia, CAD, heart failure, hypertension, other (ckd, ischemic cardiomyopathy) Past Surgical History: PTCA Social history: no significant social history Family history: no significant family history Medications and Allergies Allergies Allergy/AdvReac Type Severity Reaction Status Date / Time Penicillins Allergy Rash Verified 11/22/16 08:57 Home Medications Medication Instructions Recorded Confirmed Last Taken Type Aspirin [Aspirin TAB] 325 mg PO QDAY 11/22/16 11/22/16 11/22/16 History Carvedilol [Coreg] 25 mg PO BID 11/22/16 11/22/16 11/21/16 History Clopidogrel Bisulfate [Plavix] 75 mg PO DAILY 11/22/16 11/22/16 11/22/16 History Furosemide [Lasix] 20 mg PO BID 11/22/16 11/22/16 11/21/16 History ISOSORBIDE MONOnitrate [Imdur ER] 30 mg PO DAILY 11/22/16 11/22/16 11/21/16 History Insulin Glargine [Lantus] 10 unit SUB-Q QHS 11/22/16 11/22/16 11/21/16 History Losartan/Hydrochlorothiazide 1 each PO DAILY 11/22/16 11/22/16 11/21/16 History [Losartan-Hctz 100-25 mg Tab] Rosuvastatin (Nf) [Crestor] 10 mg PO QHS 11/22/16 11/22/16 11/21/16 History amLODIPine [Norvasc] 5 mg PO DAILY 11/22/16 11/22/16 11/21/16 History cloNIDine [Catapres] 0.1 mg PO DAILY 11/22/16 11/22/16 6 Months Ago History Active Meds: Active Medications Acetaminophen (Tylenol) 650 mg PO Q6H PRN PRN Reason: Pain, Mild (1-3) Last Admin: 12/06/16 05:01 Dose: 650 mg Aspirin (Ecotrin) 325 mg PO QDAY [facility] Last Admin: 12/08/16 10:33 Dose: 325 mg Atorvastatin Calcium (Lipitor) 40 mg PO QHS [facility] Last Admin: 12/07/16 23:11 Dose: 40 mg Carvedilol (Coreg) 25 mg PO BID [facility] Last Admin: 12/08/16 10:22 Dose: Not Given Clonidine HCl (Catapres) 0.1 mg PO Q4H PRN PRN Reason: SBP >150 Last Admin: 11/22/16 14:32 Dose: 0.1 mg Clopidogrel Bisulfate (Plavix) 75 mg PO DAILY [facility] Last Admin: 12/08/16 11:57 Dose: Not Given Famotidine (Pepcid) 20 mg PO QDAY [facility] Last Admin: 12/08/16 10:34 Dose: 20 mg Heparin Sodium (Porcine) (Heparin) 5,000 unit SUB-Q Q12HR [facility] Last Admin: 12/08/16 10:31 Dose: Not Given Heparin Sodium (Porcine) (Heparin) 5,000 unit IV GINNY PRN PRN Reason: hemodialysis Sodium Chloride (Nacl 0.9% 1000 Ml) 1,000 mls @ 50 mls/hr IV DIRECT [facility] Last Admin: 12/06/16 11:26 Dose: 50 mls/hr Sodium Chloride (Nacl 0.9%) 100 mls @ 999 mls/hr IV GINNY PRN PRN Reason: Hypotension Insulin Human Regular (Novolin R) 0 units SUB-Q ACHS ANGELLA PRN Reason: Protocol Last Admin: 12/08/16 11:57 Dose: Not Given Isosorbide Mononitrate (Imdur) 30 mg PO DAILY [facility] Last Admin: 12/08/16 10:30 Dose: Not Given Lactulose (Cephulac) 20 gm PO Q6H PRN PRN Reason: Constipation Last Admin: 12/03/16 04:26 Dose: 20 gm Lactulose (Cephulac) 200 gm VT ONCE PRN PRN Reason: Constipation Morphine Sulfate (Morphine) 4 mg IV Q4H PRN PRN Reason: Pain , Severe (7-10) Last Admin: 11/30/16 18:28 Dose: 4 mg Nifedipine (Procardia Xl) 30 mg PO Q12HR [facility] Last Admin: 12/08/16 10:24 Dose: Not Given Ondansetron HCl (Zofran) 4 mg IV Q8H PRN PRN Reason: Nausea And Vomiting Last Admin: 12/07/16 20:33 Dose: 4 mg Simethicone (Mylicon) 80 mg PO Q6H PRN PRN Reason: Gas pain Last Admin: 12/06/16 05:02 Dose: 80 mg Exam - Physical Exam Narrative exam: VITAL SIGNS: Reviewed. GENERAL: The patient appeared well nourished and normally developed. Vital signs as documented. HEAD: No signs of head trauma. EYES: Pupils are equal. Extraocular motions intact. EARS: Hearing grossly intact. MOUTH: Oropharynx is normal. NECK: No adenopathy, no JVD. CHEST: Chest with clear breath sounds bilaterally. No wheezes, rales, or rhonchi. CARDIAC: Regular rate and rhythm. S1 and S2, without murmurs, gallops, or rubs. VASCULAR: Mild pitting edema. Peripheral pulses normal and equal in all extremities. ABDOMEN: Soft, without detectable tenderness. No sign of distention. No rebound or guarding, and no masses palpated. Bowel Sounds normal. MUSCULOSKELETAL: Good range of motion of all major joints. Extremities without clubbing, cyanosis or bilateral nonpitting edema. NEUROLOGIC EXAM: Alert and oriented x 3. No focal sensory or strength deficits. Speech normal. Follows commands. PSYCHIATRIC: Mood depressed. SKIN: Amol C hypotension for access intact with no overt drainage noted.. - Constitutional Vitals: Temp Pulse Resp BP Pulse Ox 98.8 F 69 20 161/71 100 12/08/16 15:45 12/08/16 18:00 12/08/16 15:45 12/08/16 18:00 12/08/16 14:01 Results - Labs CBC & Chem 7: 12/05/16 07:54 12/08/16 08:05 Labs: Abnormal lab results 12/07/16 12/07/16 12/07/16 Range/Units 09:01 12:27 16:59 BUN (7-17) mg/dL Creatinine (0.7-1.2) mg/dL Glucose (65-100) mg/dL POC Glucose 107 H 163 H 124 H (70-105) 12/07/16 12/08/16 12/08/16 Range/Units 22:04 07:53 08:05 BUN 55 H (7-17) mg/dL Creatinine 5.0 H (0.7-1.2) mg/dL Glucose 142 H (65-100) mg/dL POC Glucose 133 H 168 H (70-105) 12/08/16 Range/Units 12:17 BUN (7-17) mg/dL Creatinine (0.7-1.2) mg/dL Glucose (65-100) mg/dL POC Glucose 140 H (70-105) - Imaging and Cardiology Abdominal x-ray: image reviewed (mild distention of the transverse colon no overt obstruction noted.) Assessment and Plan Patient is a 56-year-old female with past medical history of CKD with baseline creatnine of 1.8, hyperlipidemia, hypertension CAD and also congestive heart failure with ejection fraction of 40-50% in 2013 and also ischemic cardiomyopathy. Presented for an outpatient cardiac catheterization chest without PCI of SVG to RCA with 99% to 0% with 3.0 mm DE stent. Patient was kept overnight in the hospital to monitor creatinine before discharge. Repeat labs in the morning did reveal an increase in creatinine around 2.7. Patient was also lethargic with altered sensorium and was placed in the ICU for close observation. She was also on nitro drip but with no fever blood pressure was adequately controlled. Subsequently the Lasix was discontinued and HERO inhibitor due to the rise in creatinine. Nephrology was consulted and also pulmonary aspiration and ICU observation. Due to rising creatinine and it was determined that the patient will benefit from dialysis. Patient was subsequent transferred out of the ICU to the floor she remained stable. We'll being consulted to assist with management of other medical conditions for this patient. This morning on my exam the patient remains lethargic but with no further encephalopathy noted. She is awaiting access for dialysis. She did complain of mild abdominal pain for which of consulted GI to further assess and also obtained a KUB. She reports no bowel movement past 2 days. Which is abnormal for her. Family is at the bedside and patient denies again any chest pain, nausea, vomiting or diarrhea. No bright red blood per rectum. * Ischemic cardiomyopathy status post PCI of SVG TO RCA: Cardiology following. Continue dual antiplatelet therapy * Abdominal pain: Likely constipation, no ascities noted as previously suspected , GI Consulted * Acute kidney injury on chronic kidney disease stage III likely contrast nephropathy.-Starting on dialysis, access to be placed today. Nephrology following. PER Nephrology no ACEI OR ARBS on DISCHARGE. * Acute toxic Metabolic encephalopathy- Resolved CT of the brain negative. * Acute blood loss anemia- S/P 2 units packed red blood cell transfusion. Hemoglobin is stable. We'll check intermittent. No GI bleed noted. * Hypertension * Anasarca-patient was initially treated with IV Lasix and albumin this has been since discontinued. Expect improvement with dialysis. * Moderate to severe pulmonary hypertension * DVT and GI prophylaxis * Plan of care discussed in detail with the patient and . We'll continue to follow.
[2016-12-08] MEDS: TYLENOL PO PRN (20:06)
[2016-12-09 08:16] LABS: BUN/Creatinine Ratio 7.41; Calcium 8.9 mg/dL (8.4-10.2); Potassium 4.7 mmol/L (3.6-5.0)
--- NOTE | 2016-12-09 08:36 | Progress Note ---
Assessment and Plan Assessment: * Oliguric PATRIA secondary to contrast induced nephropathy on Stage III CKD- HD initiation 12/08 --Baseline SCr 1.4mg/dL * CAD s/p LHC w/ PCI * Probable ileus * Cardiomyopathy - EF 40-43% * Hypertension * Anemia Plan: * Hemodialysis today and tomorrow; UF as tolerated * GI following - KUB pending * Transfuse pRBC per primary team * Avoid potential nephrotoxins * Dose medications for renal function * Monitor for evidence of recovery Subjective Date of service: 12/09/16 Principal diagnosis: CAD; Acute Encephalopathy Interval history: Patient denies SOB and nausea. States that she cannot recall yesterday's events. Objective - Vital Signs Vital signs: Vital Signs - 12hr 12/09/16 12/09/16 00:35 06:26 Temperature 99.3 F 98.9 F Pulse Rate [ 69 70 Left Radial] Respiratory 20 20 Rate Blood Pressure 130/62 134/64 [Left Radial Artery] O2 Sat by Pulse 100 99 Oximetry - General Appearance General appearance: well-developed, well-nourished EENT: ATNC Respiratory: Present: Decreased Breath Sounds Cardiology: regular, S1S2 Gastrointestinal: no tenderness, no distended, obese Integumentary: no rash Musculoskeletal: other (+edema) Psychiatric: cooperative - Lab 12/09/16 08:41 12/09/16 08:41 Most recent lab results Calcium 8.9 mg/dL (8.4-10.2) 12/09/16 06:40 Urine Creatinine 336.8 mg/dL (0.1-20.0) H 12/07/16 17:25 Urine Sodium 13 mEq/L 12/07/16 17:25
[2016-12-09 09:08] LABS: Hemoglobin 8.8 gm/dl (10.1-14.3); Mean Corpuscular HGB Conc 33 % (30-34); Mean Corpuscular Hemoglobin 29 pg (28-32); Mean Corpuscular Volume 88 fl (79-97); Platelet Count 186 K/mm3 (140-440); Red Blood Count 3.09 M/mm3 (3.65-5.03); Red Cell Distribution Width 14.2 % (13.2-15.2); White Blood Count 5.1 K/mm3 (4.5-11.0)
[2016-12-09 09:18] LABS: BUN/Creatinine Ratio 7.66; Calcium 8.8 mg/dL (8.4-10.2); Chloride 100.5 mmol/L (98-107); Potassium 4.5 mmol/L (3.6-5.0)
[2016-12-09 10:27] LABS: Blastocytes % (Manual) 0 %
[2016-12-09 10:28] LABS: Anisocytosis 1+; Diff Status Complete; Ovalocytes Few; Tear Drop Cells Few
[2016-12-09] MEDS: HEPARIN SUB-Q SCH ×2 (10:30→22:27)
[2016-12-09] MEDS: COREG PO SCH ×2 (10:30→22:27)
[2016-12-09] MEDS: IMDUR PO SCH (10:31)
[2016-12-09] MEDS: PROCARDIA XL PO SCH ×2 (10:32→22:27)
[2016-12-09] MEDS: PEPCID PO SCH (10:35)
[2016-12-09] MEDS: PLAVIX PO SCH (10:36)
[2016-12-09] MEDS: ECOTRIN PO SCH (10:36)
--- NOTE | 2016-12-09 10:52 | Progress Note ---
Assessment and Plan Assessment and plan: Patient is a 56-year-old female with past medical history of CKD with baseline creatnine of 1.8, hyperlipidemia, hypertension CAD and also congestive heart failure with ejection fraction of 40-50% in 2013 and also ischemic cardiomyopathy. Presented for an outpatient cardiac catheterization chest without PCI of SVG to RCA with 99% to 0% with 3.0 mm DE stent. Patient was kept overnight in the hospital to monitor creatinine before discharge. Repeat labs in the morning did reveal an increase in creatinine around 2.7. Patient was also lethargic with altered sensorium and was placed in the ICU for close observation. She was also on nitro drip but with no fever blood pressure was adequately controlled. Subsequently the Lasix was discontinued and HERO inhibitor due to the rise in creatinine. Nephrology was consulted and also pulmonary aspiration and ICU observation. Due to rising creatinine and it was determined that the patient will benefit from dialysis. Patient was subsequent transferred out of the ICU to the floor she remained stable. We'll being consulted to assist with management of other medical conditions for this patient. This morning on my exam the patient remains lethargic but with no further encephalopathy noted. She is awaiting access for dialysis. She did complain of mild abdominal pain for which of consulted GI to further assess and also obtained a KUB. She reports no bowel movement past 2 days. Which is abnormal for her. Family is at the bedside and patient denies again any chest pain, nausea, vomiting or diarrhea. No bright red blood per rectum. * Ischemic cardiomyopathy status post PCI of SVG TO RCA: Cardiology following. Continue dual antiplatelet therapy * Abdominal pain: Likely constipation, start on lactulose prn and also fleet enema. no ascities noted as previously suspected, GI Consulted * Acute kidney injury on chronic kidney disease stage III likely contrast nephropathy.-Starting on dialysis, creatinine improved to 3.1 postdialysis today. Patient with some urine output.. Nephrology following. PER Nephrology no ACEI OR ARBS on DISCHARGE. * Acute toxic Metabolic encephalopathy- Resolved CT of the brain negative. * Acute blood loss anemia- S/P 2 units packed red blood cell transfusion. Hemoglobin is stable. We'll check intermittent. No GI bleed noted. * Hypertension * Anasarca-patient was initially treated with IV Lasix and albumin this has been since discontinued. Expect improvement with dialysis. * Moderate to severe pulmonary hypertension * DVT and GI prophylaxis * Plan of care discussed in detail with the patient and . We'll continue to follow. History Interval history: Patient seen and examined today, reports some improvement. Denies any chest pain , still with constipation. No other adverse event reported. Hospitalist Physical - Physical exam Narrative exam: VITAL SIGNS: Reviewed. GENERAL: The patient appeared well nourished and normally developed. Vital signs as documented. HEAD: No signs of head trauma. EYES: Pupils are equal. Legally bleed EARS: Hearing grossly intact. MOUTH: Oropharynx is normal. NECK: No adenopathy, no JVD. CHEST: Chest with clear breath sounds bilaterally. No wheezes, rales, or rhonchi. CARDIAC: Regular rate and rhythm. S1 and S2, without murmurs, gallops, or rubs. VASCULAR: Mild pitting edema. Peripheral pulses normal and equal in all extremities. ABDOMEN: Soft, without detectable tenderness. No sign of distention. No rebound or guarding, and no masses palpated. Bowel Sounds normal. MUSCULOSKELETAL: Good range of motion of all major joints. Extremities without clubbing, cyanosis or bilateral nonpitting edema. NEUROLOGIC EXAM: Alert and oriented x 3. No focal sensory or strength deficits. Speech normal. Follows commands. PSYCHIATRIC: Mood depressed. SKIN: Access intact with no overt drainage noted. - Constitutional Vitals: Temp Pulse Resp BP Pulse Ox 99.0 F 64 16 149/68 98 12/09/16 09:11 12/09/16 09:11 12/09/16 09:11 12/09/16 09:11 12/09/16 09:11 Results - Labs CBC & Chem 7: 12/09/16 08:41 12/09/16 08:41 Labs: Laboratory Last Values WBC 5.1 K/mm3 (4.5-11.0) 12/09/16 08:41 RBC 3.09 M/mm3 (3.65-5.03) L 12/09/16 08:41 Hgb 8.8 gm/dl (10.1-14.3) L 12/09/16 08:41 Hct 27.0 % (30.3-42.9) L 12/09/16 08:41 MCV 88 fl (79-97) 12/09/16 08:41 MCH 29 pg (28-32) 12/09/16 08:41 MCHC 33 % (30-34) 12/09/16 08:41 RDW 14.2 % (13.2-15.2) 12/09/16 08:41 Plt Count 186 K/mm3 (140-440) 12/09/16 08:41 Lymph % (Auto) 23.2 % (13.4-35.0) 12/05/16 07:54 [place] % (Auto) Nurseryperson 12/09/16 08:41 Eos % (Auto) 5.3 % (0.0-4.3) H 12/05/16 07:54 Baso % (Auto) 0.8 % (0.0-1.8) 12/05/16 07:54 Lymph # 1.1 K/mm3 (1.2-5.4) L 12/05/16 07:54 [place] # 0.6 K/mm3 (0.0-0.8) 12/05/16 07:54 Eos # 0.2 K/mm3 (0.0-0.4) 12/05/16 07:54 Baso # 0.0 K/mm3 (0.0-0.1) 12/05/16 07:54 Add Manual Diff Complete 12/09/16 08:41 Total Counted 100 12/09/16 08:41 Seg Neutrophils % 56.9 % (40.0-70.0) 12/05/16 07:54 Seg Neuts % (Manual) 75.0 % (40.0-70.0) H 12/09/16 08:41 Band Neutrophils % 0 % 12/09/16 08:41 Lymphocytes % (Manual) 13.0 % (13.4-35.0) L 12/09/16 08:41 Reactive Lymphs % (Man) 0 % 12/09/16 08:41 Monocytes % (Manual) 8.0 % (0.0-7.3) H 12/09/16 08:41 Eosinophils % (Manual) 3.0 % (0.0-4.3) 12/09/16 08:41 Basophils % (Manual) 1.0 % (0.0-1.8) 12/09/16 08:41 Metamyelocytes % 0 % 12/09/16 08:41 Myelocytes % 0 % 12/09/16 08:41 Promyelocytes % 0 % 12/09/16 08:41 Blast Cells % 0 % 12/09/16 08:41 Nucleated RBC % Not Reportable 12/09/16 08:41 Seg Neutrophils # 2.6 K/mm3 (1.8-7.7) 12/05/16 07:54 Seg Neutrophils # Man 3.8 K/mm3 (1.8-7.7) 12/09/16 08:41 Band Neutrophils # 0.0 K/mm3 12/09/16 08:41 Lymphocytes # (Manual) 0.7 K/mm3 (1.2-5.4) L 12/09/16 08:41 Abs React Lymphs (Man) 0.0 K/mm3 12/09/16 08:41 Monocytes # (Manual) 0.4 K/mm3 (0.0-0.8) 12/09/16 08:41 Eosinophils # (Manual) 0.2 K/mm3 (0.0-0.4) 12/09/16 08:41 Basophils # (Manual) 0.1 K/mm3 (0.0-0.1) 12/09/16 08:41 Metamyelocytes # 0.0 K/mm3 12/09/16 08:41 Myelocytes # 0.0 K/mm3 12/09/16 08:41 Promyelocytes # 0.0 K/mm3 12/09/16 08:41 Blast Cells # 0.0 K/mm3 12/09/16 08:41 WBC Morphology Not Reportable 12/09/16 08:41 Hypersegmented Neuts Not Reportable 12/09/16 08:41 Hyposegmented Neuts Not Reportable 12/09/16 08:41 Hypogranular Neuts Not Reportable 12/09/16 08:41 Smudge Cells Not Reportable 12/09/16 08:41 Toxic Granulation Not Reportable 12/09/16 08:41 Toxic Vacuolation Not Reportable 12/09/16 08:41 Dohle Bodies Not Reportable 12/09/16 08:41 Pelger-Huet Anomaly Not Reportable 12/09/16 08:41 Rich Rods Not Reportable 12/09/16 08:41 Platelet Estimate Appears normal 12/09/16 08:41 Clumped Platelets Not Reportable 12/09/16 08:41 Plt Clumps, EDTA Not Reportable 12/09/16 08:41 Large Platelets Not Reportable 12/09/16 08:41 Giant Platelets Not Reportable 12/09/16 08:41 Platelet Satelliting Not Reportable 12/09/16 08:41 Plt Morphology Comment Not Reportable 12/09/16 08:41 RBC Morphology Not Reportable 12/09/16 08:41 Dimorphic RBCs Not Reportable 12/09/16 08:41 Polychromasia Not Reportable 12/09/16 08:41 Hypochromasia Not Reportable 12/09/16 08:41 Poikilocytosis Not Reportable 12/09/16 08:41 Anisocytosis 1+ 12/09/16 08:41 Microcytosis Not Reportable 12/09/16 08:41 Macrocytosis Not Reportable 12/09/16 08:41 Spherocytes Not Reportable 12/09/16 08:41 Pappenheimer Bodies Not Reportable 12/09/16 08:41 Sickle Cells Not Reportable 12/09/16 08:41 Target Cells Not Reportable 12/09/16 08:41 Tear Drop Cells Few 12/09/16 08:41 Ovalocytes Few 12/09/16 08:41 Helmet Cells Not Reportable 12/09/16 08:41 Beltran-Red [place]et Bodies Not Reportable 12/09/16 08:41 Rosman Rings Not Reportable 12/09/16 08:41 Dona Cells Not Reportable 12/09/16 08:41 Bite Cells Not Reportable 12/09/16 08:41 Crenated Cell Not Reportable 12/09/16 08:41 Elliptocytes Not Reportable 12/09/16 08:41 Acanthocytes (Spur) Not Reportable 12/09/16 08:41 Rouleaux Not Reportable 12/09/16 08:41 Hemoglobin C Crystals Not Reportable 12/09/16 08:41 Schistocytes Not Reportable 12/09/16 08:41 Malaria parasites Not Reportable 12/09/16 08:41 Gabe Bodies Not Reportable 12/09/16 08:41 Hem Pathologist Commnt No 12/09/16 08:41 PT 14.5 Sec. (12.2-14.9) 11/22/16 07:20 INR 1.14 (0.87-1.13) H 11/22/16 07:20 APTT 37.7 Sec. (24.2-36.6) H 11/22/16 07:37 Activated Clotting Time 175 (74-137) H 11/22/16 14:25 POC ABG pH 7.356 (7.35-7.45) 11/25/16 22:20 POC ABG pCO2 38.1 (35-45) 11/25/16 22:20 POC ABG pO2 67 (80-105) L 11/25/16 22:20 POC ABG HCO3 21.3 11/25/16 22:20 POC ABG Total CO2 22 11/25/16 22:20 POC ABG O2 Sat 92 11/25/16 22:20 POC ABG Base Excess -4 11/25/16 22:20 FiO2 32 % 11/25/16 22:20 Sodium 141 mmol/L (137-145) 12/09/16 08:41 Potassium 4.5 mmol/L (3.6-5.0) 12/09/16 08:41 Chloride 100.5 mmol/L (98-107) 12/09/16 08:41 Carbon Dioxide 27 mmol/L (22-30) 12/09/16 08:41 Anion Gap 18 mmol/L 12/09/16 08:41 BUN 23 mg/dL (7-17) H 12/09/16 08:41 Creatinine 3.0 mg/dL (0.7-1.2) H 12/09/16 08:41 Estimated GFR 19 ml/min 12/09/16 08:41 BUN/Creatinine Ratio 7.66 % 12/09/16 08:41 Glucose 108 mg/dL (65-100) H 12/09/16 08:41 POC Glucose 115 (70-105) H 12/09/16 07:47 Osmolality 304 Mosm/kg 12/07/16 10:49 Lactic Acid 1.00 mmol/L (0.7-2.0) 11/26/16 06:11 Uric Acid 10.3 mg/dL (3.5-7.6) H 12/07/16 08:48 Calcium 8.8 mg/dL (8.4-10.2) 12/09/16 08:41 Total Bilirubin 0.60 mg/dL (0.1-1.2) 11/24/16 07:09 AST 100 units/L (5-40) H 11/24/16 07:09 ALT 118 units/L (7-56) H 11/24/16 07:09 Alkaline Phosphatase 110 units/L (35-129) 11/24/16 07:09 Total Creatine Kinase 188 units/L (30-135) H 12/07/16 08:48 CK-MB (CK-2) 2.7 ng/mL (0.0-4.0) 11/23/16 06:49 CK-MB (CK-2) Rel Index 1.4 (0-4) 11/23/16 06:49 Troponin T 0.012 ng/mL (0.00-0.029) 11/23/16 06:49 C-Reactive Protein 1.20 mg/dL (0.00-1.30) 11/25/16 13:02 Total Protein 6.5 g/dL (6.3-8.2) 11/24/16 07:09 Albumin 3.5 g/dL (3.9-5) L 11/24/16 07:09 Albumin/Globulin Ratio 1.2 % 11/24/16 07:09 TSH 0.610 mlU/mL (0.270-4.200) 11/25/16 20:44 Urine Color Yellow (Yellow) 12/07/16 17:25 Urine Turbidity Slightly-cloudy (Clear) 12/07/16 17:25 Urine pH 5.0 (5.0-7.0) 12/07/16 17:25 Ur Specific [place] 1.018 (1.003-1.030) 12/07/16 17:25 Urine Protein 100 mg/dl mg/dL (Negative) 12/07/16 17:25 Urine Glucose (UA) Neg mg/dL (Negative) 12/07/16 17:25 Urine Ketones Neg mg/dL (Negative) 12/07/16 17:25 Urine Blood Neg (Negative) 12/07/16 17:25 Urine Nitrite Neg (Negative) 12/07/16 17:25 Urine Bilirubin Neg (Negative) 12/07/16 17:25 Urine Urobilinogen < 2.0 mg/dL (<2.0) 12/07/16 17:25 Ur Leukocyte Esterase Neg (Negative) 12/07/16 17:25 Urine WBC (Auto) 9.0 /HPF (0.0-6.0) H 12/07/16 17:25 Urine RBC (Auto) 1.0 /HPF (0.0-6.0) 12/07/16 17:25 U Epithel Cells (Auto) 5.0 /HPF (0-13.0) 12/07/16 17:25 Urine Bacteria (Auto) 2+ /HPF (Negative) 12/04/16 14:30 Amorphous Crystals Few 12/07/16 17:25 Hyaline Casts 22 /LPF 12/07/16 17:25 Urine Eosinophils None seen (None Seen) 12/04/16 14:30 Urine Creatinine 336.8 mg/dL (0.1-20.0) H 12/07/16 17:25 Urine Sodium 13 mEq/L 12/07/16 17:25 Urine Potassium 70.20 mEq/L 11/24/16 21:57 Urine Chloride 31.3 mEq/L (110-250) L 11/24/16 21:57 Blood Type O POSITIVE 11/28/16 15:22 Antibody Screen TNR 11/28/16 15:22 HUDSON Antibody Screen Negative 11/28/16 15:22 Crossmatch See Detail 11/28/16 15:22
--- NOTE | 2016-12-09 11:22 | Progress Note ---
Assessment and Plan Altered mental status -resolved Head CT shows no acute intracranial process Volume overload Hyperkalemia -resolved Coronary artery disease with prior CABG Right and LHC findings: moderate to severe elevated left and right heart filling pressures; moderate to severe pulmonary HTN 3 vessel disease ESTRADA to LAD patent SVG x 2 occluded (Diag and OM) subtotal occlusion of proximal segment of SVG to RCA treated with a drug eluting stent EF 40-45% Acute renal failure secondary to contrast nephropathy initiated on dialysis Acute drop in H&H s/p blood transfusion Ischemic Cardiomyopathy Hypertension Deconditioning Continue medical therapy for coronary artery disease, including dual oral antiplatelet therapy for recent coronary stent. Subjective Date of service: 12/09/16 Principal diagnosis: CAD; Acute Encephalopathy Interval history: Patient dialyzed overnight. Creatinine down to 3.0 today. Patient has no chest pain or shortness of breath. Objective Vital Signs Temp Pulse Pulse Pulse Resp BP BP 12/09/16 09:11 99.0 F 64 16 149/68 12/09/16 06:26 98.9 F 70 20 134/64 12/09/16 00:35 99.3 F 69 20 130/62 12/08/16 20:05 85 12/08/16 19:25 98.8 F 71 20 152/65 12/08/16 19:15 98.4 F 85 16 168/91 12/08/16 19:00 71 156/70 12/08/16 18:45 70 151/76 12/08/16 18:30 71 156/73 12/08/16 18:15 69 160/75 12/08/16 18:00 69 161/71 12/08/16 17:45 69 154/70 12/08/16 17:30 69 150/71 12/08/16 17:15 67 162/73 12/08/16 17:00 67 153/70 12/08/16 16:45 67 153/70 12/08/16 16:30 66 145/73 12/08/16 16:15 66 158/70 12/08/16 16:00 72 156/69 12/08/16 15:45 98.8 F 64 20 147/78 12/08/16 14:01 65 F L 82 18 129/64 12/08/16 13:43 99.3 F 67 67 18 139/68 Pulse Ox 12/09/16 09:11 98 12/09/16 06:26 99 12/09/16 00:35 100 12/08/16 20:05 12/08/16 19:25 100 12/08/16 19:15 12/08/16 19:00 12/08/16 18:45 12/08/16 18:30 12/08/16 18:15 12/08/16 18:00 12/08/16 17:45 12/08/16 17:30 12/08/16 17:15 12/08/16 17:00 12/08/16 16:45 12/08/16 16:30 12/08/16 16:15 12/08/16 16:00 12/08/16 15:45 12/08/16 14:01 100 12/08/16 13:43 94 - Physical Examination General: No Apparent Distress HEENT: Positive: PERRL Neck: Positive: trachea midline Cardiac: Positive: Reg Rate and Rhythm Lungs: Positive: Decreased Breath Sounds Neuro: Positive: Weakness Abdomen: Positive: Distended Extremities: Present: +1 Edema - Labs and Meds CBC 12/09/16 Range/Units 08:41 WBC 5.1 (4.5-11.0) K/mm3 RBC 3.09 L (3.65-5.03) M/mm3 Hgb 8.8 L (10.1-14.3) gm/dl Hct 27.0 L (30.3-42.9) % Plt Count 186 (140-440) K/mm3 Comprehensive Metabolic Panel 12/09/16 12/09/16 Range/Units 06:40 08:41 Sodium 142 141 (137-145) mmol/L Potassium 4.7 4.5 (3.6-5.0) mmol/L Chloride 101.0 100.5 (98-107) mmol/L Carbon Dioxide 28 27 (22-30) mmol/L BUN 23 H 23 H (7-17) mg/dL Creatinine 3.1 H 3.0 H (0.7-1.2) mg/dL Glucose 108 H 108 H (65-100) mg/dL Calcium 8.9 8.8 (8.4-10.2) mg/dL
[2016-12-09] MEDS ORDERED: NACL 0.9% 100 ML IV PRN (11:29)
--- NOTE | 2016-12-09 11:45 | Progress Note ---
Assessment and Plan (1) Acute encephalopathy Current Visit: Yes Status: Acute Plan to address problem: - ventilation improved and can not blame on CO2 narcosis - suspect may be depression related element and may benefit from psychiatric evaluation - CT brain negative for acute process - continue qhs BIPAP for likely SDB (2) PATRIA (acute kidney injury) Current Visit: Yes Status: Acute Plan to address problem: - element of contrast induced nephropathy - nephrology evaluation ongoing - follow I's & O's and electrolytes - tentatively to begin dialysis (3) Anemia Current Visit: Yes Status: Acute Qualifiers: Anemia type: A Iron deficiency anemia type: I Vitamin B12 deficiency anemia type: V Folate deficiency anemia type: F Bone marrow failure anemia type: B Hemolytic anemia type: H Other causes of anemia: O Chronic kidney disease stage: C Plan to address problem: - likely of chronic disease - iron studies - no acute indication for transfusion (4) CAD (coronary artery disease) of artery bypass graft Current Visit: Yes Status: Acute Qualifiers: [place] vs. 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 per vocational teacher (5) Discharge planning issues Current Visit: Yes Status: Acute Plan to address problem: - to remains on telemetry; hopefully no volume overload issues down the line - clinical exam suggestspulmonary edema which should hopefully improve with HD/ UF; will repeat CXR next 24-48hrs Subjective Date of service: 12/09/16 Principal diagnosis: CAD; Acute Encephalopathy Interval history: Seen and examined at bedside; 24 hour events reviewed; nursing and respiratory care staff consulted; no adverse overnight events reported to me; HD/UF today; resting in bed; no N/V/F/C Objective Vital Signs - 12hr 12/09/16 12/09/16 12/09/16 00:35 06:26 09:11 Temperature 99.3 F 98.9 F 99.0 F Pulse Rate [ 69 70 64 Left Radial] Respiratory 20 20 16 Rate Blood Pressure 130/62 134/64 149/68 [Left Radial Artery] O2 Sat by Pulse 100 99 98 Oximetry Constitutional: no acute distress, other (somnolent) Eyes: non-icteric ENT: oropharynx moist Neck: supple, no lymphadenopathy Effort: normal Ascultation: Bilateral: diminished breath sounds, rales (scant in posterior bases) Cardiovascular: regular rate and rhythm Gastrointestinal: normoactive bowel sounds, soft, non-tender, non-distended Integumentary: normal Extremities: no cyanosis, no edema, pulses normal, no ischemia or petechiae Neurologic: normal mental status, non-focal exam, pupils equal and round, motor strength normal and Psychiatric: depressed CBC and BMP: 12/10/16 06:00 12/11/16 06:02 ABG, PT/INR, D-dimer: ABG POC ABG pH 7.356 (7.35-7.45) 11/25/16 22:20 POC ABG pCO2 38.1 (35-45) 11/25/16 22:20 POC ABG pO2 67 (80-105) L 11/25/16 22:20 POC ABG HCO3 21.3 11/25/16 22:20 POC ABG Total CO2 22 11/25/16 22:20 POC ABG O2 Sat 92 11/25/16 22:20 PT/INR, D-dimer PT 14.5 Sec. (12.2-14.9) 11/22/16 07:20 INR 1.14 (0.87-1.13) H 11/22/16 07:20 Abnormal lab findings: Abnormal Labs 11/22/16 11/22/16 11/22/16 07:20 07:20 07:20 WBC RBC 3.52 L Hgb Hct Plt Count Lymph % (Auto) [place] % (Auto) 11.5 H Eos % (Auto) Lymph # Seg Neutrophils % Seg Neuts % (Manual) Lymphocytes % (Manual) Monocytes % (Manual) Lymphocytes # (Manual) INR 1.14 H APTT Activated Clotting Time POC ABG pH POC ABG pO2 Sodium Potassium Chloride 108.0 H Carbon Dioxide BUN 25 H Creatinine 1.4 H Glucose POC Glucose Uric Acid Calcium AST ALT Total Creatine Kinase Albumin Urine WBC (Auto) Urine Creatinine Urine Chloride Crossmatch 11/22/16 11/22/16 11/22/16 07:37 10:46 13:13 WBC RBC Hgb Hct Plt Count Lymph % (Auto) [place] % (Auto) Eos % (Auto) Lymph # Seg Neutrophils % Seg Neuts % (Manual) Lymphocytes % (Manual) Monocytes % (Manual) Lymphocytes # (Manual) INR APTT 37.7 H Activated Clotting Time 327 H 202 H POC ABG pH POC ABG pO2 Sodium Potassium Chloride Carbon Dioxide BUN Creatinine Glucose POC Glucose Uric Acid Calcium AST ALT Total Creatine Kinase Albumin Urine WBC (Auto) Urine Creatinine Urine Chloride Crossmatch 11/22/16 11/23/16 11/23/16 14:25 06:49 06:49 WBC 4.1 L RBC 2.74 L Hgb 7.7 L Hct 23.8 L D Plt Count 135 L Lymph % (Auto) [place] % (Auto) 13.8 H Eos % (Auto) Lymph # Seg Neutrophils % Seg Neuts % (Manual) Lymphocytes % (Manual) Monocytes % (Manual) Lymphocytes # (Manual) INR APTT Activated Clotting Time 175 H POC ABG pH POC ABG pO2 Sodium Potassium Chloride Carbon Dioxide BUN 27 H Creatinine 1.8 H Glucose 137 H POC Glucose Uric Acid Calcium 8.0 L AST ALT Total Creatine Kinase 183 H Albumin Urine WBC (Auto) Urine Creatinine Urine Chloride Crossmatch 11/23/16 11/23/16 11/23/16 11:07 12:45 17:32 WBC RBC 2.98 L Hgb 8.5 L Hct 26.3 L Plt Count Lymph % (Auto) [place] % (Auto) 13.2 H Eos % (Auto) Lymph # Seg Neutrophils % Seg Neuts % (Manual) Lymphocytes % (Manual) Monocytes % (Manual) Lymphocytes # (Manual) INR APTT Activated Clotting Time POC ABG pH POC ABG pO2 Sodium Potassium Chloride Carbon Dioxide BUN Creatinine Glucose POC Glucose 134 H 171 H Uric Acid Calcium AST ALT Total Creatine Kinase Albumin Urine WBC (Auto) Urine Creatinine Urine Chloride Crossmatch 11/23/16 11/24/16 11/24/16 21:24 05:28 05:28 WBC RBC Hgb 8.6 L Hct 26.8 L Plt Count Lymph % (Auto) [place] % (Auto) Eos % (Auto) Lymph # Seg Neutrophils % Seg Neuts % (Manual) Lymphocytes % (Manual) Monocytes % (Manual) Lymphocytes # (Manual) INR APTT Activated Clotting Time POC ABG pH POC ABG pO2 Sodium Potassium 5.9 H D Chloride Carbon Dioxide 19 L BUN 33 H Creatinine 2.7 H Glucose 162 H POC Glucose 174 H Uric Acid Calcium AST ALT Total Creatine Kinase Albumin Urine WBC (Auto) Urine Creatinine Urine Chloride Crossmatch 11/24/16 11/24/16 11/24/16 06:23 07:05 07:09 WBC RBC Hgb Hct Plt Count Lymph % (Auto) [place] % (Auto) Eos % (Auto) Lymph # Seg Neutrophils % Seg Neuts % (Manual) Lymphocytes % (Manual) Monocytes % (Manual) Lymphocytes # (Manual) INR APTT Activated Clotting Time POC ABG pH 7.264 L POC ABG pO2 33 L Sodium Potassium 5.8 H Chloride Carbon Dioxide 20 L BUN 33 H Creatinine 2.8 H Glucose 158 H POC Glucose 209 H Uric Acid Calcium AST 100 H ALT 118 H Total Creatine Kinase Albumin 3.5 L Urine WBC (Auto) Urine Creatinine Urine Chloride Crossmatch 11/24/16 11/24/16 11/24/16 07:19 08:50 11:45 WBC RBC Hgb Hct Plt Count Lymph % (Auto) [place] % (Auto) Eos % (Auto) Lymph # Seg Neutrophils % Seg Neuts % (Manual) Lymphocytes % (Manual) Monocytes % (Manual) Lymphocytes # (Manual) INR APTT Activated Clotting Time POC ABG pH 7.285 L POC ABG pO2 64 L Sodium Potassium Chloride Carbon Dioxide BUN Creatinine Glucose POC Glucose 193 H 169 H Uric Acid Calcium AST ALT Total Creatine Kinase Albumin Urine WBC (Auto) Urine Creatinine Urine Chloride Crossmatch 11/24/16 11/24/16 11/24/16 15:24 15:32 17:14 WBC RBC Hgb Hct Plt Count Lymph % (Auto) [place] % (Auto) Eos % (Auto) Lymph # Seg Neutrophils % Seg Neuts % (Manual) Lymphocytes % (Manual) Monocytes % (Manual) Lymphocytes # (Manual) INR APTT Activated Clotting Time POC ABG pH POC ABG pO2 Sodium Potassium 5.2 H Chloride Carbon Dioxide 20 L BUN 37 H Creatinine 3.0 H Glucose 144 H POC Glucose 195 H Uric Acid Calcium AST ALT Total Creatine Kinase Albumin Urine WBC (Auto) Urine Creatinine Urine Chloride Crossmatch See Detail 11/24/16 11/24/16 11/25/16 21:57 23:39 05:30 WBC RBC Hgb Hct Plt Count Lymph % (Auto) [place] % (Auto) Eos % (Auto) Lymph # Seg Neutrophils % Seg Neuts % (Manual) Lymphocytes % (Manual) Monocytes % (Manual) Lymphocytes # (Manual) INR APTT Activated Clotting Time POC ABG pH POC ABG pO2 Sodium Potassium Chloride Carbon Dioxide BUN Creatinine Glucose POC Glucose 112 H 129 H Uric Acid Calcium AST ALT Total Creatine Kinase Albumin Urine WBC (Auto) Urine Creatinine 295.3 H Urine Chloride 31.3 L Crossmatch 11/25/16 11/25/16 11/25/16 07:00 07:00 08:40 WBC RBC 3.30 L Hgb 9.5 L Hct 29.0 L Plt Count 119 L Lymph % (Auto) [place] % (Auto) 9.5 H Eos % (Auto) Lymph # Seg Neutrophils % 72.7 H Seg Neuts % (Manual) Lymphocytes % (Manual) Monocytes % (Manual) Lymphocytes # (Manual) INR APTT Activated Clotting Time POC ABG pH POC ABG pO2 Sodium Potassium Chloride 110.1 H Carbon Dioxide 18 L BUN 38 H Creatinine 2.6 H Glucose 123 H POC Glucose 129 H Uric Acid Calcium 8.2 L AST ALT Total Creatine Kinase Albumin Urine WBC (Auto) Urine Creatinine Urine Chloride Crossmatch 11/25/16 11/25/16 11/25/16 11:24 12:17 16:16 WBC RBC Hgb Hct Plt Count Lymph % (Auto) [place] % (Auto) Eos % (Auto) Lymph # Seg Neutrophils % Seg Neuts % (Manual) Lymphocytes % (Manual) Monocytes % (Manual) Lymphocytes # (Manual) INR APTT Activated Clotting Time POC ABG pH 7.327 L POC ABG pO2 Sodium Potassium Chloride Carbon Dioxide BUN Creatinine Glucose POC Glucose 142 H 151 H Uric Acid Calcium AST ALT Total Creatine Kinase Albumin Urine WBC (Auto) Urine Creatinine Urine Chloride Crossmatch 11/25/16 11/25/16 11/26/16 21:48 22:20 00:58 WBC RBC 3.23 L Hgb 9.2 L Hct 27.9 L Plt Count 119 L Lymph % (Auto) 10.2 L [place] % (Auto) 7.6 H Eos % (Auto) Lymph # 0.8 L Seg Neutrophils % 79.9 H Seg Neuts % (Manual) Lymphocytes % (Manual) Monocytes % (Manual) Lymphocytes # (Manual) INR APTT Activated Clotting Time POC ABG pH POC ABG pO2 67 L Sodium Potassium Chloride Carbon Dioxide BUN Creatinine Glucose POC Glucose 149 H Uric Acid Calcium AST ALT Total Creatine Kinase Albumin Urine WBC (Auto) Urine Creatinine Urine Chloride Crossmatch 11/26/16 11/26/16 11/26/16 06:11 07:40 11:28 WBC RBC Hgb Hct Plt Count Lymph % (Auto) [place] % (Auto) Eos % (Auto) Lymph # Seg Neutrophils % Seg Neuts % (Manual) Lymphocytes % (Manual) Monocytes % (Manual) Lymphocytes # (Manual) INR APTT Activated Clotting Time POC ABG pH POC ABG pO2 Sodium Potassium Chloride Carbon Dioxide 21 L BUN 41 H Creatinine 2.5 H Glucose 151 H POC Glucose 144 H 168 H Uric Acid Calcium 8.1 L AST ALT Total Creatine Kinase Albumin Urine WBC (Auto) Urine Creatinine Urine Chloride Crossmatch 11/26/16 11/27/16 11/27/16 15:50 00:03 03:45 WBC RBC Hgb Hct Plt Count Lymph % (Auto) [place] % (Auto) Eos % (Auto) Lymph # Seg Neutrophils % Seg Neuts % (Manual) Lymphocytes % (Manual) Monocytes % (Manual) Lymphocytes # (Manual) INR APTT Activated Clotting Time POC ABG pH POC ABG pO2 Sodium Potassium Chloride Carbon Dioxide BUN 46 H Creatinine 2.8 H Glucose 147 H POC Glucose 153 H 183 H Uric Acid Calcium 8.1 L AST ALT Total Creatine Kinase Albumin Urine WBC (Auto) Urine Creatinine Urine Chloride Crossmatch 11/27/16 11/27/16 11/27/16 06:26 07:32 11:53 WBC RBC Hgb Hct Plt Count Lymph % (Auto) [place] % (Auto) Eos % (Auto) Lymph # Seg Neutrophils % Seg Neuts % (Manual) Lymphocytes % (Manual) Monocytes % (Manual) Lymphocytes # (Manual) INR APTT Activated Clotting Time POC ABG pH POC ABG pO2 Sodium Potassium Chloride Carbon Dioxide BUN Creatinine Glucose POC Glucose 208 H 193 H 180 H Uric Acid Calcium AST ALT Total Creatine Kinase Albumin Urine WBC (Auto) Urine Creatinine Urine Chloride Crossmatch 11/27/16 11/27/16 11/28/16 16:42 21:51 08:13 WBC RBC Hgb Hct Plt Count Lymph % (Auto) [place] % (Auto) Eos % (Auto) Lymph # Seg Neutrophils % Seg Neuts % (Manual) Lymphocytes % (Manual) Monocytes % (Manual) Lymphocytes # (Manual) INR APTT Activated Clotting Time POC ABG pH POC ABG pO2 Sodium Potassium Chloride Carbon Dioxide BUN Creatinine Glucose POC Glucose 161 H 167 H 151 H Uric Acid Calcium AST ALT Total Creatine Kinase Albumin Urine WBC (Auto) Urine Creatinine Urine Chloride Crossmatch 11/28/16 11/28/16 11/28/16 10:01 10:01 12:30 WBC RBC Hgb 8.5 L Hct 25.3 L Plt Count Lymph % (Auto) [place] % (Auto) Eos % (Auto) Lymph # Seg Neutrophils % Seg Neuts % (Manual) Lymphocytes % (Manual) Monocytes % (Manual) Lymphocytes # (Manual) INR APTT Activated Clotting Time POC ABG pH POC ABG pO2 Sodium 136 L Potassium Chloride Carbon Dioxide BUN 50 H Creatinine 2.8 H Glucose 143 H POC Glucose 154 H Uric Acid Calcium 8.1 L AST ALT Total Creatine Kinase Albumin Urine WBC (Auto) Urine Creatinine Urine Chloride Crossmatch 11/28/16 11/28/16 11/28/16 15:22 16:55 20:40 WBC RBC Hgb Hct Plt Count Lymph % (Auto) [place] % (Auto) Eos % (Auto) Lymph # Seg Neutrophils % Seg Neuts % (Manual) Lymphocytes % (Manual) Monocytes % (Manual) Lymphocytes # (Manual) INR APTT Activated Clotting Time POC ABG pH POC ABG pO2 Sodium Potassium Chloride Carbon Dioxide BUN Creatinine Glucose POC Glucose 191 H 177 H Uric Acid Calcium AST ALT Total Creatine Kinase Albumin Urine WBC (Auto) Urine Creatinine Urine Chloride Crossmatch See Detail 11/29/16 11/29/16 11/29/16 07:18 07:18 07:31 WBC RBC Hgb 9.5 L Hct 28.2 L Plt Count Lymph % (Auto) [place] % (Auto) Eos % (Auto) Lymph # Seg Neutrophils % Seg Neuts % (Manual) Lymphocytes % (Manual) Monocytes % (Manual) Lymphocytes # (Manual) INR APTT Activated Clotting Time POC ABG pH POC ABG pO2 Sodium 136 L Potassium Chloride Carbon Dioxide BUN 51 H Creatinine 2.7 H Glucose 120 H POC Glucose 127 H Uric Acid Calcium 8.1 L AST ALT Total Creatine Kinase Albumin Urine WBC (Auto) Urine Creatinine Urine Chloride Crossmatch 11/29/16 11/29/16 11/29/16 12:49 17:35 20:31 WBC RBC Hgb Hct Plt Count Lymph % (Auto) [place] % (Auto) Eos % (Auto) Lymph # Seg Neutrophils % Seg Neuts % (Manual) Lymphocytes % (Manual) Monocytes % (Manual) Lymphocytes # (Manual) INR APTT Activated Clotting Time POC ABG pH POC ABG pO2 Sodium Potassium Chloride Carbon Dioxide BUN Creatinine Glucose POC Glucose 213 H 179 H 154 H Uric Acid Calcium AST ALT Total Creatine Kinase Albumin Urine WBC (Auto) Urine Creatinine Urine Chloride Crossmatch 11/30/16 11/30/16 11/30/16 08:25 09:52 16:07 WBC RBC Hgb Hct Plt Count Lymph % (Auto) [place] % (Auto) Eos % (Auto) Lymph # Seg Neutrophils % Seg Neuts % (Manual) Lymphocytes % (Manual) Monocytes % (Manual) Lymphocytes # (Manual) INR APTT Activated Clotting Time POC ABG pH POC ABG pO2 Sodium Potassium Chloride Carbon Dioxide BUN 52 H Creatinine 3.0 H Glucose 156 H POC Glucose 127 H 216 H Uric Acid Calcium AST ALT Total Creatine Kinase Albumin Urine WBC (Auto) Urine Creatinine Urine Chloride Crossmatch 11/30/16 12/01/16 12/01/16 20:45 08:34 08:48 WBC RBC Hgb Hct Plt Count Lymph % (Auto) [place] % (Auto) Eos % (Auto) Lymph # Seg Neutrophils % Seg Neuts % (Manual) Lymphocytes % (Manual) Monocytes % (Manual) Lymphocytes # (Manual) INR APTT Activated Clotting Time POC ABG pH POC ABG pO2 Sodium 136 L Potassium Chloride Carbon Dioxide BUN 50 H Creatinine 3.0 H Glucose 124 H POC Glucose 197 H 136 H Uric Acid Calcium AST ALT Total Creatine Kinase Albumin Urine WBC (Auto) Urine Creatinine Urine Chloride Crossmatch 12/01/16 12/01/16 12/01/16 11:35 16:56 22:08 WBC RBC Hgb Hct Plt Count Lymph % (Auto) [place] % (Auto) Eos % (Auto) Lymph # Seg Neutrophils % Seg Neuts % (Manual) Lymphocytes % (Manual) Monocytes % (Manual) Lymphocytes # (Manual) INR APTT Activated Clotting Time POC ABG pH POC ABG pO2 Sodium Potassium Chloride Carbon Dioxide BUN Creatinine Glucose POC Glucose 205 H 210 H 157 H Uric Acid Calcium AST ALT Total Creatine Kinase Albumin Urine WBC (Auto) Urine Creatinine Urine Chloride Crossmatch 12/02/16 12/02/16 12/02/16 05:52 08:47 15:16 WBC RBC Hgb Hct Plt Count Lymph % (Auto) [place] % (Auto) Eos % (Auto) Lymph # Seg Neutrophils % Seg Neuts % (Manual) Lymphocytes % (Manual) Monocytes % (Manual) Lymphocytes # (Manual) INR APTT Activated Clotting Time POC ABG pH POC ABG pO2 Sodium Potassium Chloride Carbon Dioxide BUN 48 H Creatinine 2.7 H Glucose 136 H POC Glucose 134 H 226 H Uric Acid Calcium AST ALT Total Creatine Kinase Albumin Urine WBC (Auto) Urine Creatinine Urine Chloride Crossmatch 12/02/16 12/03/16 12/03/16 22:53 05:58 05:58 WBC 4.2 L RBC 3.37 L Hgb 9.7 L Hct 29.4 L Plt Count Lymph % (Auto) [place] % (Auto) Eos % (Auto) Lymph # Seg Neutrophils % Seg Neuts % (Manual) Lymphocytes % (Manual) Monocytes % (Manual) Lymphocytes # (Manual) INR APTT Activated Clotting Time POC ABG pH POC ABG pO2 Sodium Potassium Chloride Carbon Dioxide BUN 47 H Creatinine 2.7 H Glucose 142 H POC Glucose 235 H Uric Acid Calcium AST ALT Total Creatine Kinase Albumin Urine WBC (Auto) Urine Creatinine Urine Chloride Crossmatch 12/03/16 12/03/16 12/03/16 13:04 16:47 21:50 WBC RBC Hgb Hct Plt Count Lymph % (Auto) [place] % (Auto) Eos % (Auto) Lymph # Seg Neutrophils % Seg Neuts % (Manual) Lymphocytes % (Manual) Monocytes % (Manual) Lymphocytes # (Manual) INR APTT Activated Clotting Time POC ABG pH POC ABG pO2 Sodium Potassium Chloride Carbon Dioxide BUN Creatinine Glucose POC Glucose 135 H 140 H 170 H Uric Acid Calcium AST ALT Total Creatine Kinase Albumin Urine WBC (Auto) Urine Creatinine Urine Chloride Crossmatch 12/04/16 12/04/16 12/04/16 07:26 12:21 16:43 WBC RBC Hgb Hct Plt Count Lymph % (Auto) [place] % (Auto) Eos % (Auto) Lymph # Seg Neutrophils % Seg Neuts % (Manual) Lymphocytes % (Manual) Monocytes % (Manual) Lymphocytes # (Manual) INR APTT Activated Clotting Time POC ABG pH POC ABG pO2 Sodium Potassium Chloride Carbon Dioxide BUN Creatinine Glucose POC Glucose 145 H 203 H 210 H Uric Acid Calcium AST ALT Total Creatine Kinase Albumin Urine WBC (Auto) Urine Creatinine Urine Chloride Crossmatch 12/04/16 12/05/16 12/05/16 21:41 07:54 07:54 WBC RBC 3.10 L Hgb 9.0 L Hct 26.9 L Plt Count Lymph % (Auto) [place] % (Auto) 13.8 H Eos % (Auto) 5.3 H Lymph # 1.1 L Seg Neutrophils % Seg Neuts % (Manual) Lymphocytes % (Manual) Monocytes % (Manual) Lymphocytes # (Manual) INR APTT Activated Clotting Time POC ABG pH POC ABG pO2 Sodium Potassium Chloride Carbon Dioxide BUN 51 H Creatinine 3.7 H Glucose 132 H POC Glucose 211 H Uric Acid Calcium AST ALT Total Creatine Kinase Albumin Urine WBC (Auto) Urine Creatinine Urine Chloride Crossmatch 12/05/16 12/05/16 12/05/16 08:30 11:46 22:02 WBC RBC Hgb Hct Plt Count Lymph % (Auto) [place] % (Auto) Eos % (Auto) Lymph # Seg Neutrophils % Seg Neuts % (Manual) Lymphocytes % (Manual) Monocytes % (Manual) Lymphocytes # (Manual) INR APTT Activated Clotting Time POC ABG pH POC ABG pO2 Sodium Potassium Chloride Carbon Dioxide BUN Creatinine Glucose POC Glucose 140 H 225 H 165 H Uric Acid Calcium AST ALT Total Creatine Kinase Albumin Urine WBC (Auto) Urine Creatinine Urine Chloride Crossmatch 12/06/16 12/06/16 12/06/16 08:17 09:10 09:10 WBC RBC Hgb Hct Plt Count Lymph % (Auto) [place] % (Auto) Eos % (Auto) Lymph # Seg Neutrophils % Seg Neuts % (Manual) Lymphocytes % (Manual) Monocytes % (Manual) Lymphocytes # (Manual) INR APTT Activated Clotting Time POC ABG pH POC ABG pO2 Sodium Potassium Chloride 97.6 L Carbon Dioxide BUN 50 H Creatinine 3.8 H Glucose 126 H POC Glucose 166 H Uric Acid 10.0 H Calcium AST ALT Total Creatine Kinase Albumin Urine WBC (Auto) Urine Creatinine Urine Chloride Crossmatch 12/06/16 12/06/16 12/06/16 12:18 17:39 22:31 WBC RBC Hgb Hct Plt Count Lymph % (Auto) [place] % (Auto) Eos % (Auto) Lymph # Seg Neutrophils % Seg Neuts % (Manual) Lymphocytes % (Manual) Monocytes % (Manual) Lymphocytes # (Manual) INR APTT Activated Clotting Time POC ABG pH POC ABG pO2 Sodium Potassium Chloride Carbon Dioxide BUN Creatinine Glucose POC Glucose 188 H 176 H 157 H Uric Acid Calcium AST ALT Total Creatine Kinase Albumin Urine WBC (Auto) Urine Creatinine Urine Chloride Crossmatch 12/07/16 12/07/16 12/07/16 08:48 08:49 09:01 WBC RBC Hgb Hct Plt Count Lymph % (Auto) [place] % (Auto) Eos % (Auto) Lymph # Seg Neutrophils % Seg Neuts % (Manual) Lymphocytes % (Manual) Monocytes % (Manual) Lymphocytes # (Manual) INR APTT Activated Clotting Time POC ABG pH POC ABG pO2 Sodium Potassium Chloride 97.9 L Carbon Dioxide BUN 52 H Creatinine 4.2 H Glucose 105 H POC Glucose 107 H Uric Acid 10.3 H Calcium AST ALT Total Creatine Kinase 188 H Albumin Urine WBC (Auto) Urine Creatinine Urine Chloride Crossmatch 12/07/16 12/07/16 12/07/16 12:27 16:59 17:25 WBC RBC Hgb Hct Plt Count Lymph % (Auto) [place] % (Auto) Eos % (Auto) Lymph # Seg Neutrophils % Seg Neuts % (Manual) Lymphocytes % (Manual) Monocytes % (Manual) Lymphocytes # (Manual) INR APTT Activated Clotting Time POC ABG pH POC ABG pO2 Sodium Potassium Chloride Carbon Dioxide BUN Creatinine Glucose POC Glucose 163 H 124 H Uric Acid Calcium AST ALT Total Creatine Kinase Albumin Urine WBC (Auto) 9.0 H Urine Creatinine Urine Chloride Crossmatch 12/07/16 12/07/16 12/08/16 17:25 22:04 07:53 WBC RBC Hgb Hct Plt Count Lymph % (Auto) [place] % (Auto) Eos % (Auto) Lymph # Seg Neutrophils % Seg Neuts % (Manual) Lymphocytes % (Manual) Monocytes % (Manual) Lymphocytes # (Manual) INR APTT Activated Clotting Time POC ABG pH POC ABG pO2 Sodium Potassium Chloride Carbon Dioxide BUN Creatinine Glucose POC Glucose 133 H 168 H Uric Acid Calcium AST ALT Total Creatine Kinase Albumin Urine WBC (Auto) Urine Creatinine 336.8 H Urine Chloride Crossmatch 12/08/16 12/08/16 12/08/16 08:05 12:17 22:09 WBC RBC Hgb Hct Plt Count Lymph % (Auto) [place] % (Auto) Eos % (Auto) Lymph # Seg Neutrophils % Seg Neuts % (Manual) Lymphocytes % (Manual) Monocytes % (Manual) Lymphocytes # (Manual) INR APTT Activated Clotting Time POC ABG pH POC ABG pO2 Sodium Potassium Chloride Carbon Dioxide BUN 55 H Creatinine 5.0 H Glucose 142 H POC Glucose 140 H 154 H Uric Acid Calcium AST ALT Total Creatine Kinase Albumin Urine WBC (Auto) Urine Creatinine Urine Chloride Crossmatch 12/09/16 12/09/16 12/09/16 06:40 07:47 08:41 WBC RBC 3.09 L Hgb 8.8 L Hct 27.0 L Plt Count Lymph % (Auto) [place] % (Auto) Eos % (Auto) Lymph # Seg Neutrophils % Seg Neuts % (Manual) 75.0 H Lymphocytes % (Manual) 13.0 L Monocytes % (Manual) 8.0 H Lymphocytes # (Manual) 0.7 L INR APTT Activated Clotting Time POC ABG pH POC ABG pO2 Sodium Potassium Chloride Carbon Dioxide BUN 23 H Creatinine 3.1 H Glucose 108 H POC Glucose 115 H Uric Acid Calcium AST ALT Total Creatine Kinase Albumin Urine WBC (Auto) Urine Creatinine Urine Chloride Crossmatch 12/09/16 08:41 WBC RBC Hgb Hct Plt Count Lymph % (Auto) [place] % (Auto) Eos % (Auto) Lymph # Seg Neutrophils % Seg Neuts % (Manual) Lymphocytes % (Manual) Monocytes % (Manual) Lymphocytes # (Manual) INR APTT Activated Clotting Time POC ABG pH POC ABG pO2 Sodium Potassium Chloride Carbon Dioxide BUN 23 H Creatinine 3.0 H Glucose 108 H POC Glucose Uric Acid Calcium AST ALT Total Creatine Kinase Albumin Urine WBC (Auto) Urine Creatinine Urine Chloride Crossmatch
--- NOTE | 2016-12-09 11:55 | Gastroenterology Progress Note ---
Assessment and Plan 1. ascites-abdominal distention -etiology of abdominal distention most likely due to volume overload from PATRIA and cardiomyopathy -vas cath placed with HD yesterday -KUB negative -denies recent BM-continue bowel regimen - will order abd u/s and check LFTs for evaluation of liver disease -further recommendations to follow Subjective Date of service: 12/09/16 Principal diagnosis: ascites Interval history: Patient resting in bed, family at bedside. No acute distress. Denies abd pain or N/V today. Objective - Constitutional Vitals: Temp Pulse Resp BP Pulse Ox 99.0 F 64 16 149/68 98 12/09/16 09:11 12/09/16 09:11 12/09/16 09:11 12/09/16 09:11 12/09/16 09:11 General appearance: no acute distress - EENT Eyes: PERRL, EOM intact ENT: hearing intact - Neck Neck: supple, normal ROM - Respiratory Respiratory: bilateral: diminished - Cardiovascular Rhythm: regular Heart Sounds: Present: S1 & S2 - Extremities Extremity abnormal: edema (+1 BLE), other - Gastrointestinal General gastrointestinal: Present: non-tender, distended, normal bowel sounds - Integumentary Integumentary: Present: warm, dry - Neurologic Neurological: alert and oriented x3 - Labs CBC & Chem 7: 12/09/16 08:41 12/09/16 08:41 Labs: Laboratory Results - last 24 hr 12/08/16 12/08/16 12/09/16 12:17 22:09 06:40 WBC RBC Hgb Hct MCV MCH MCHC RDW Plt Count [place] % (Auto) Add Manual Diff Total Counted Seg Neuts % (Manual) Band Neutrophils % Lymphocytes % (Manual) Reactive Lymphs % (Man) Monocytes % (Manual) Eosinophils % (Manual) Basophils % (Manual) Metamyelocytes % Myelocytes % Promyelocytes % Blast Cells % Nucleated RBC % Seg Neutrophils # Man Band Neutrophils # Lymphocytes # (Manual) Abs React Lymphs (Man) Monocytes # (Manual) Eosinophils # (Manual) Basophils # (Manual) Metamyelocytes # Myelocytes # Promyelocytes # Blast Cells # WBC Morphology Hypersegmented Neuts Hyposegmented Neuts Hypogranular Neuts Smudge Cells Toxic Granulation Toxic Vacuolation Dohle Bodies Pelger-Huet Anomaly Rich Rods Platelet Estimate Clumped Platelets Plt Clumps, EDTA Large Platelets Giant Platelets Platelet Satelliting Plt Morphology Comment RBC Morphology Dimorphic RBCs Polychromasia Hypochromasia Poikilocytosis Anisocytosis Microcytosis Macrocytosis Spherocytes Pappenheimer Bodies Sickle Cells Target Cells Tear Drop Cells Ovalocytes Helmet Cells Beltran-[place] Bodies [place] Rings [place] Cells Bite Cells Crenated Cell Elliptocytes Acanthocytes (Spur) Rouleaux Hemoglobin C Crystals Schistocytes Malaria parasites Gabe Bodies Hem Pathologist Commnt Sodium 142 Potassium 4.7 Chloride 101.0 Carbon Dioxide 28 Anion Gap 18 BUN 23 H Creatinine 3.1 H Estimated GFR 19 BUN/Creatinine Ratio 7.41 Glucose 108 H POC Glucose 140 H 154 H Calcium 8.9 12/09/16 12/09/16 12/09/16 07:47 08:41 08:41 WBC 5.1 RBC 3.09 L Hgb 8.8 L Hct 27.0 L MCV 88 MCH 29 MCHC 33 RDW 14.2 Plt Count 186 [place] % (Auto) Television Picture Tube Rebuilder Add Manual Diff Complete Total Counted 100 Seg Neuts % (Manual) 75.0 H Band Neutrophils % 0 Lymphocytes % (Manual) 13.0 L Reactive Lymphs % (Man) 0 Monocytes % (Manual) 8.0 H Eosinophils % (Manual) 3.0 Basophils % (Manual) 1.0 Metamyelocytes % 0 Myelocytes % 0 Promyelocytes % 0 Blast Cells % 0 Nucleated RBC % Not Reportable Seg Neutrophils # Man 3.8 Band Neutrophils # 0.0 Lymphocytes # (Manual) 0.7 L Abs React Lymphs (Man) 0.0 Monocytes # (Manual) 0.4 Eosinophils # (Manual) 0.2 Basophils # (Manual) 0.1 Metamyelocytes # 0.0 Myelocytes # 0.0 Promyelocytes # 0.0 Blast Cells # 0.0 WBC Morphology Not Reportable Hypersegmented Neuts Not Reportable Hyposegmented Neuts Not Reportable Hypogranular Neuts Not Reportable Smudge Cells Not Reportable Toxic Granulation Not Reportable Toxic Vacuolation Not Reportable Dohle Bodies Not Reportable Pelger-Huet Anomaly Not Reportable Rich Rods Not Reportable Platelet Estimate Appears normal Clumped Platelets Not Reportable Plt Clumps, EDTA Not Reportable Large Platelets Not Reportable Giant Platelets Not Reportable Platelet Satelliting Not Reportable Plt Morphology Comment Not Reportable RBC Morphology Not Reportable Dimorphic RBCs Not Reportable Polychromasia Not Reportable Hypochromasia Not Reportable Poikilocytosis Not Reportable Anisocytosis 1+ Microcytosis Not Reportable Macrocytosis Not Reportable Spherocytes Not Reportable Pappenheimer Bodies Not Reportable Sickle Cells Not Reportable Target Cells Not Reportable Tear Drop Cells Few Ovalocytes Few Helmet Cells Not Reportable Beltran-[place] Bodies Not Reportable [place] Rings Not Reportable Dona Cells Not Reportable Bite Cells Not Reportable Crenated Cell Not Reportable Elliptocytes Not Reportable Acanthocytes (Spur) Not Reportable Rouleaux Not Reportable Hemoglobin C Crystals Not Reportable Schistocytes Not Reportable Malaria parasites Not Reportable Gabe Bodies Not Reportable Hem Pathologist Commnt No Sodium 141 Potassium 4.5 Chloride 100.5 Carbon Dioxide 27 Anion Gap 18 BUN 23 H Creatinine 3.0 H Estimated GFR 19 BUN/Creatinine Ratio 7.66 Glucose 108 H POC Glucose 115 H Calcium 8.8
[2016-12-09] MEDS ORDERED: FLEET PR ONE (13:00)
--- NOTE | 2016-12-09 15:39 | Vascular Lab Report ---
MISCELLANEOUS VESSEL IDENTIFICATION: COMMENTS ON THE SCAN: The right internal jugular vein was identified and under real-time ultrasound guidance was cannulated. IMPRESSION: Successful ultrasound guided vein cannulation.
[2016-12-09] MEDS ORDERED: NACL 0.9 (PRIMING MACHINE ONLY DIALYSIS) MC ONE (19:17)
[2016-12-09] MEDS: CEPHULAC PO PRN (22:26)
[2016-12-10 06:35] LABS: Hematocrit 30.4 % (30.3-42.9); Hemoglobin 9.8 gm/dl (10.1-14.3); Mean Corpuscular HGB Conc 32 % (30-34); Mean Corpuscular Hemoglobin 28 pg (28-32); Mean Corpuscular Volume 88 fl (79-97); Platelet Count 204 K/mm3 (140-440); Red Blood Count 3.47 M/mm3 (3.65-5.03); Red Cell Distribution Width 14.2 % (13.2-15.2); White Blood Count 5.8 K/mm3 (4.5-11.0)
[2016-12-10 06:58] LABS: BUN/Creatinine Ratio 5.26; Calcium 9.3 mg/dL (8.4-10.2); Chloride 99.5 mmol/L (98-107); Potassium 4.1 mmol/L (3.6-5.0)
[2016-12-10 06:59] LABS: Albumin 5.1 g/dL (3.9-5); Albumin/Globulin Ratio 1.8 %; BUN/Creatinine Ratio 5.26; Bilirubin,Total 1.1 mg/dL (0.1-1.2); Calcium 9.4 mg/dL (8.4-10.2); Chloride 99.9 mmol/L (98-107); Total Protein 7.9 g/dL (6.3-8.2)
--- NOTE | 2016-12-10 09:42 | Progress Note ---
Assessment and Plan Altered mental status -resolved Head CT shows no acute intracranial process Volume overload Hyperkalemia -resolved Coronary artery disease with prior CABG Right and LHC findings: moderate to severe elevated left and right heart filling pressures; moderate to severe pulmonary HTN 3 vessel disease ESTRADA to LAD patent SVG x 2 occluded (Diag and OM) subtotal occlusion of proximal segment of SVG to RCA treated with a drug eluting stent EF 40-45% Acute renal failure secondary to contrast nephropathy initiated on dialysis Acute drop in H&H s/p blood transfusion Ischemic Cardiomyopathy Hypertension Deconditioning Ascites Continue medical therapy for coronary artery disease, including dual oral antiplatelet therapy for recent coronary stent. Subjective Date of service: 12/10/16 Principal diagnosis: ascites Interval history: No events overnight Objective Vital Signs Temp Pulse Pulse Resp BP BP Pulse Ox 12/10/16 08:00 97.8 F 64 18 131/65 94 12/10/16 05:43 97.8 F 61 20 131/58 96 12/10/16 04:00 97.8 F 61 20 131/58 96 12/10/16 01:37 99.1 F 66 20 144/65 93 12/09/16 20:45 71 12/09/16 20:06 100.2 F H 71 20 124/67 12/09/16 20:05 99.6 F 70 20 136/72 95 12/09/16 19:00 71 132/66 12/09/16 18:45 71 138/65 12/09/16 18:30 68 131/70 12/09/16 18:15 68 124/71 12/09/16 18:00 70 134/66 12/09/16 17:45 68 138/69 12/09/16 17:30 69 138/69 12/09/16 17:15 69 132/73 12/09/16 17:00 68 127/67 12/09/16 16:45 66 132/64 12/09/16 16:30 62 133/68 12/09/16 16:15 59 L 138/72 12/09/16 16:00 67 141/75 12/09/16 15:45 66 147/73 12/09/16 15:30 100.2 F H 66 20 145/73 12/09/16 14:05 98.9 F 69 16 139/67 98 12/09/16 10:00 98 - Physical Examination General: No Apparent Distress HEENT: Positive: PERRL, Normocephaly Neck: Positive: neck supple, trachea midline Cardiac: Positive: Reg Rate and Rhythm Lungs: Positive: clear to auscultation Neuro: Positive: Grossly Intact, Weakness Abdomen: Positive: Distended Incision: Cardiac Cath Site Extremities: Present: +1 Edema - Labs and Meds Cardiac Enzymes 12/10/16 Range/Units 06:00 AST 25 (5-40) units/L CBC 12/10/16 Range/Units 06:00 WBC 5.8 (4.5-11.0) K/mm3 RBC 3.47 L (3.65-5.03) M/mm3 Hgb 9.8 L (10.1-14.3) gm/dl Hct 30.4 (30.3-42.9) % Plt Count 204 (140-440) K/mm3 Comprehensive Metabolic Panel 12/10/16 12/10/16 Range/Units 06:00 06:00 Sodium 143 143 (137-145) mmol/L Potassium 4.1 4.0 (3.6-5.0) mmol/L Chloride 99.5 99.9 (98-107) mmol/L Carbon Dioxide 30 30 (22-30) mmol/L BUN 10 10 (7-17) mg/dL Creatinine 1.9 H 1.9 H (0.7-1.2) mg/dL Glucose 120 H 120 H (65-100) mg/dL Calcium 9.3 9.4 (8.4-10.2) mg/dL AST 25 (5-40) units/L ALT 25 (7-56) units/L Alkaline Phosphatase 84 (35-129) units/L Total Protein 7.9 (6.3-8.2) g/dL Albumin 5.1 H (3.9-5) g/dL
[2016-12-10] MEDS: PEPCID PO SCH (10:50)
--- NOTE | 2016-12-10 11:49 | Progress Note ---
Assessment and Plan Assessment and plan: Patient is a 56-year-old female with past medical history of CKD with baseline creatnine of 1.8, hyperlipidemia, hypertension CAD and also congestive heart failure with ejection fraction of 40-50% in 2013 and also ischemic cardiomyopathy. Presented for an outpatient cardiac catheterization chest without PCI of SVG to RCA with 99% to 0% with 3.0 mm DE stent. Patient was kept overnight in the hospital to monitor creatinine before discharge. Repeat labs in the morning did reveal an increase in creatinine around 2.7. Patient was also lethargic with altered sensorium and was placed in the ICU for close observation. She was also on nitro drip but with no fever blood pressure was adequately controlled. Subsequently the Lasix was discontinued and HERO inhibitor due to the rise in creatinine. Nephrology was consulted and also pulmonary aspiration and ICU observation. Due to rising creatinine and it was determined that the patient will benefit from dialysis. Patient was subsequent transferred out of the ICU to the floor she remained stable. We'll being consulted to assist with management of other medical conditions for this patient. This morning on my exam the patient remains lethargic but with no further encephalopathy noted. She is awaiting access for dialysis. She did complain of mild abdominal pain for which of consulted GI to further assess and also obtained a KUB. She reports no bowel movement past 2 days. Which is abnormal for her. Family is at the bedside and patient denies again any chest pain, nausea, vomiting or diarrhea. No bright red blood per rectum. * Ischemic cardiomyopathy status post PCI of SVG TO RCA: Cardiology following. Continue dual antiplatelet therapy * Abdominal pain: Likely constipation, resolved. lactulose prn and also fleet enema. no ascities noted as previously suspected, GI Consulted * Acute kidney injury on chronic kidney disease stage III likely contrast nephropathy.-improving, down to 1.9 today. Await Nephrology input, creatinine is Patient with some urine output. Nephrology following. PER Nephrology no ACEI OR ARBS on DISCHARGE. * Acute toxic Metabolic encephalopathy- Resolved CT of the brain negative. * Acute blood loss anemia- S/P 2 units packed red blood cell transfusion. Hemoglobin is stable. We'll check intermittent. No GI bleed noted. * Hypertension- Stable * Anasarca-patient was initially treated with IV Lasix and albumin this has been since discontinued. Expect improvement with dialysis. * Moderate to severe pulmonary hypertension- cardiology following. * DVT and GI prophylaxis * Plan of care discussed in detail with the patient and . We'll continue to follow. History Interval history: Patient seen and examined today, she was sitting up, and reports no further abdominal pain, she reports BM and urine output. She is very grateful. No other adverse events as reported. Hospitalist Physical - Physical exam Narrative exam: VITAL SIGNS: Reviewed. GENERAL: The patient appeared well nourished and normally developed. Vital signs as documented. HEAD: No signs of head trauma. EYES: Pupils are equal. Legally bleed EARS: Hearing grossly intact. MOUTH: Oropharynx is normal. NECK: No adenopathy, no JVD. CHEST: Chest with clear breath sounds bilaterally. No wheezes, rales, or rhonchi. CARDIAC: Regular rate and rhythm. S1 and S2, without murmurs, gallops, or rubs. VASCULAR: Mild pitting edema. Peripheral pulses normal and equal in all extremities. ABDOMEN: Soft, without detectable tenderness. No sign of distention. No rebound or guarding, and no masses palpated. Bowel Sounds normal. MUSCULOSKELETAL: Good range of motion of all major joints. Extremities without clubbing, cyanosis or bilateral nonpitting edema. NEUROLOGIC EXAM: Alert and oriented x 3. No focal sensory or strength deficits. Speech normal. Follows commands. PSYCHIATRIC: Mood depressed. SKIN: Access intact with no overt drainage noted. - Constitutional Vitals: Temp Pulse Resp BP Pulse Ox 97.8 F 64 18 131/65 94 12/10/16 08:00 12/10/16 08:00 12/10/16 08:00 12/10/16 08:00 12/10/16 08:00 Results - Labs CBC & Chem 7: 12/10/16 06:00 12/10/16 06:00 Labs: Laboratory Last Values WBC 5.8 K/mm3 (4.5-11.0) 12/10/16 06:00 RBC 3.47 M/mm3 (3.65-5.03) L 12/10/16 06:00 Hgb 9.8 gm/dl (10.1-14.3) L 12/10/16 06:00 Hct 30.4 % (30.3-42.9) 12/10/16 06:00 MCV 88 fl (79-97) 12/10/16 06:00 MCH 28 pg (28-32) 12/10/16 06:00 MCHC 32 % (30-34) 12/10/16 06:00 RDW 14.2 % (13.2-15.2) 12/10/16 06:00 Plt Count 204 K/mm3 (140-440) 12/10/16 06:00 Lymph % (Auto) 23.2 % (13.4-35.0) 12/05/16 07:54 [place] % (Auto) Bottom Filler 12/09/16 08:41 Eos % (Auto) 5.3 % (0.0-4.3) H 12/05/16 07:54 Baso % (Auto) 0.8 % (0.0-1.8) 12/05/16 07:54 Lymph # 1.1 K/mm3 (1.2-5.4) L 12/05/16 07:54 [place] # 0.6 K/mm3 (0.0-0.8) 12/05/16 07:54 Eos # 0.2 K/mm3 (0.0-0.4) 12/05/16 07:54 Baso # 0.0 K/mm3 (0.0-0.1) 12/05/16 07:54 Add Manual Diff Complete 12/09/16 08:41 Total Counted 100 12/09/16 08:41 Seg Neutrophils % 56.9 % (40.0-70.0) 12/05/16 07:54 Seg Neuts % (Manual) 75.0 % (40.0-70.0) H 12/09/16 08:41 Band Neutrophils % 0 % 12/09/16 08:41 Lymphocytes % (Manual) 13.0 % (13.4-35.0) L 12/09/16 08:41 Reactive Lymphs % (Man) 0 % 12/09/16 08:41 Monocytes % (Manual) 8.0 % (0.0-7.3) H 12/09/16 08:41 Eosinophils % (Manual) 3.0 % (0.0-4.3) 12/09/16 08:41 Basophils % (Manual) 1.0 % (0.0-1.8) 12/09/16 08:41 Metamyelocytes % 0 % 12/09/16 08:41 Myelocytes % 0 % 12/09/16 08:41 Promyelocytes % 0 % 12/09/16 08:41 Blast Cells % 0 % 12/09/16 08:41 Nucleated RBC % Not Reportable 12/09/16 08:41 Seg Neutrophils # 2.6 K/mm3 (1.8-7.7) 12/05/16 07:54 Seg Neutrophils # Man 3.8 K/mm3 (1.8-7.7) 12/09/16 08:41 Band Neutrophils # 0.0 K/mm3 12/09/16 08:41 Lymphocytes # (Manual) 0.7 K/mm3 (1.2-5.4) L 12/09/16 08:41 Abs React Lymphs (Man) 0.0 K/mm3 12/09/16 08:41 Monocytes # (Manual) 0.4 K/mm3 (0.0-0.8) 12/09/16 08:41 Eosinophils # (Manual) 0.2 K/mm3 (0.0-0.4) 12/09/16 08:41 Basophils # (Manual) 0.1 K/mm3 (0.0-0.1) 12/09/16 08:41 Metamyelocytes # 0.0 K/mm3 12/09/16 08:41 Myelocytes # 0.0 K/mm3 12/09/16 08:41 Promyelocytes # 0.0 K/mm3 12/09/16 08:41 Blast Cells # 0.0 K/mm3 12/09/16 08:41 WBC Morphology Not Reportable 12/09/16 08:41 Hypersegmented Neuts Not Reportable 12/09/16 08:41 Hyposegmented Neuts Not Reportable 12/09/16 08:41 Hypogranular Neuts Not Reportable 12/09/16 08:41 Smudge Cells Not Reportable 12/09/16 08:41 Toxic Granulation Not Reportable 12/09/16 08:41 Toxic Vacuolation Not Reportable 12/09/16 08:41 Dohle Bodies Not Reportable 12/09/16 08:41 Pelger-Huet Anomaly Not Reportable 12/09/16 08:41 Rich Rods Not Reportable 12/09/16 08:41 Platelet Estimate Appears normal 12/09/16 08:41 Clumped Platelets Not Reportable 12/09/16 08:41 Plt Clumps, EDTA Not Reportable 12/09/16 08:41 Large Platelets Not Reportable 12/09/16 08:41 Giant Platelets Not Reportable 12/09/16 08:41 Platelet Satelliting Not Reportable 12/09/16 08:41 Plt Morphology Comment Not Reportable 12/09/16 08:41 RBC Morphology Not Reportable 12/09/16 08:41 Dimorphic RBCs Not Reportable 12/09/16 08:41 Polychromasia Not Reportable 12/09/16 08:41 Hypochromasia Not Reportable 12/09/16 08:41 Poikilocytosis Not Reportable 12/09/16 08:41 Anisocytosis 1+ 12/09/16 08:41 Microcytosis Not Reportable 12/09/16 08:41 Macrocytosis Not Reportable 12/09/16 08:41 Spherocytes Not Reportable 12/09/16 08:41 Pappenheimer Bodies Not Reportable 12/09/16 08:41 Sickle Cells Not Reportable 12/09/16 08:41 Target Cells Not Reportable 12/09/16 08:41 Tear Drop Cells Few 12/09/16 08:41 Ovalocytes Few 12/09/16 08:41 Helmet Cells Not Reportable 12/09/16 08:41 [place] Bodies Not Reportable 12/09/16 08:41 [place] Rings Not Reportable 12/09/16 08:41 Dona Cells Not Reportable 12/09/16 08:41 Bite Cells Not Reportable 12/09/16 08:41 Crenated Cell Not Reportable 12/09/16 08:41 Elliptocytes Not Reportable 12/09/16 08:41 Acanthocytes (Spur) Not Reportable 12/09/16 08:41 Rouleaux Not Reportable 12/09/16 08:41 Hemoglobin C Crystals Not Reportable 12/09/16 08:41 Schistocytes Not Reportable 12/09/16 08:41 Malaria parasites Not Reportable 12/09/16 08:41 Gabe Bodies Not Reportable 12/09/16 08:41 Hem Pathologist Commnt No 12/09/16 08:41 PT 14.5 Sec. (12.2-14.9) 11/22/16 07:20 INR 1.14 (0.87-1.13) H 11/22/16 07:20 APTT 37.7 Sec. (24.2-36.6) H 11/22/16 07:37 Activated Clotting Time 175 (74-137) H 11/22/16 14:25 POC ABG pH 7.356 (7.35-7.45) 11/25/16 22:20 POC ABG pCO2 38.1 (35-45) 11/25/16 22:20 POC ABG pO2 67 (80-105) L 11/25/16 22:20 POC ABG HCO3 21.3 11/25/16 22:20 POC ABG Total CO2 22 11/25/16 22:20 POC ABG O2 Sat 92 11/25/16 22:20 POC ABG Base Excess -4 11/25/16 22:20 FiO2 32 % 11/25/16 22:20 Sodium 143 mmol/L (137-145) 12/10/16 06:00 Potassium 4.0 mmol/L (3.6-5.0) 12/10/16 06:00 Chloride 99.9 mmol/L (98-107) 12/10/16 06:00 Carbon Dioxide 30 mmol/L (22-30) 12/10/16 06:00 Anion Gap 17 mmol/L 12/10/16 06:00 BUN 10 mg/dL (7-17) 12/10/16 06:00 Creatinine 1.9 mg/dL (0.7-1.2) H 12/10/16 06:00 Estimated GFR 33 ml/min 12/10/16 06:00 BUN/Creatinine Ratio 5.26 % 12/10/16 06:00 Glucose 120 mg/dL (65-100) H 12/10/16 06:00 POC Glucose 137 (70-105) H 12/10/16 08:34 Osmolality 304 Mosm/kg 12/07/16 10:49 Lactic Acid 1.00 mmol/L (0.7-2.0) 11/26/16 06:11 Uric Acid 10.3 mg/dL (3.5-7.6) H 12/07/16 08:48 Calcium 9.4 mg/dL (8.4-10.2) 12/10/16 06:00 Total Bilirubin 1.10 mg/dL (0.1-1.2) 12/10/16 06:00 AST 25 units/L (5-40) 12/10/16 06:00 ALT 25 units/L (7-56) 12/10/16 06:00 Alkaline Phosphatase 84 units/L (35-129) 12/10/16 06:00 Total Creatine Kinase 188 units/L (30-135) H 12/07/16 08:48 CK-MB (CK-2) 2.7 ng/mL (0.0-4.0) 11/23/16 06:49 CK-MB (CK-2) Rel Index 1.4 (0-4) 11/23/16 06:49 Troponin T 0.012 ng/mL (0.00-0.029) 11/23/16 06:49 C-Reactive Protein 1.20 mg/dL (0.00-1.30) 11/25/16 13:02 Total Protein 7.9 g/dL (6.3-8.2) 12/10/16 06:00 Albumin 5.1 g/dL (3.9-5) H 12/10/16 06:00 Albumin/Globulin Ratio 1.8 % 12/10/16 06:00 TSH 0.610 mlU/mL (0.270-4.200) 11/25/16 20:44 Urine Color Yellow (Yellow) 12/07/16 17:25 Urine Turbidity Slightly-cloudy (Clear) 12/07/16 17:25 Urine pH 5.0 (5.0-7.0) 12/07/16 17:25 Ur Specific [place] 1.018 (1.003-1.030) 12/07/16 17:25 Urine Protein 100 mg/dl mg/dL (Negative) 12/07/16 17:25 Urine Glucose (UA) Neg mg/dL (Negative) 12/07/16 17:25 Urine Ketones Neg mg/dL (Negative) 12/07/16 17:25 Urine Blood Neg (Negative) 12/07/16 17:25 Urine Nitrite Neg (Negative) 12/07/16 17:25 Urine Bilirubin Neg (Negative) 12/07/16 17:25 Urine Urobilinogen < 2.0 mg/dL (<2.0) 12/07/16 17:25 Ur Leukocyte Esterase Neg (Negative) 12/07/16 17:25 Urine WBC (Auto) 9.0 /HPF (0.0-6.0) H 12/07/16 17:25 Urine RBC (Auto) 1.0 /HPF (0.0-6.0) 12/07/16 17:25 U Epithel Cells (Auto) 5.0 /HPF (0-13.0) 12/07/16 17:25 Urine Bacteria (Auto) 2+ /HPF (Negative) 12/04/16 14:30 Amorphous Crystals Few 12/07/16 17:25 Hyaline Casts 22 /LPF 12/07/16 17:25 Urine Eosinophils None seen (None Seen) 12/04/16 14:30 Urine Creatinine 336.8 mg/dL (0.1-20.0) H 12/07/16 17:25 Urine Sodium 13 mEq/L 12/07/16 17:25 Urine Potassium 70.20 mEq/L 11/24/16 21:57 Urine Chloride 31.3 mEq/L (110-250) L 11/24/16 21:57 Blood Type O POSITIVE 11/28/16 15:22 Antibody Screen TNR 11/28/16 15:22 [place]DSON Antibody Screen Negative 11/28/16 15:22 Crossmatch See Detail 11/28/16 15:22
[2016-12-10] MEDS ORDERED: NACL 0.9 (PRIMING MACHINE ONLY DIALYSIS) MC ONE (12:35)
--- NOTE | 2016-12-10 14:42 | Progress Note ---
Assessment and Plan Assessment: * Oliguric PATRIA secondary to contrast induced nephropathy on Stage III CKD- HD initiation 12/08 --Baseline SCr 1.4mg/dL * CAD s/p LHC w/ PCI * Probable ileus * Cardiomyopathy - EF 40-43% * Hypertension * Anemia Plan: * Hemodialysis today; UF as tolerated * SCr improved due to dialysis. Monitor UOP for evidence of recovery. * Reassess for HD on Monday * Transfuse pRBC per primary team * Cardiology recommendations noted * Avoid potential nephrotoxins * Dose medications for renal function * Monitor for evidence of recovery Subjective Date of service: 12/10/16 Principal diagnosis: ascites Interval history: Patient feels weak after dialysis today. Objective - Vital Signs Vital signs: Vital Signs - 12hr 12/10/16 12/10/16 12/10/16 04:00 05:43 08:00 Temperature 97.8 F 97.8 F 97.8 F Pulse Rate Pulse Rate [ 61 61 64 Left Radial] Respiratory 20 20 18 Rate Blood Pressure Blood Pressure 131/58 131/58 131/65 [Left Radial Artery] O2 Sat by Pulse 96 96 94 Oximetry 12/10/16 12/10/16 12/10/16 11:00 11:15 11:30 Temperature 98.2 F Pulse Rate 66 66 67 Pulse Rate [ Left Radial] Respiratory 18 Rate Blood Pressure 138/81 136/68 139/77 Blood Pressure [Left Radial Artery] O2 Sat by Pulse Oximetry 12/10/16 12/10/16 12/10/16 11:45 12:00 12:15 Temperature Pulse Rate 67 73 76 Pulse Rate [ Left Radial] Respiratory Rate Blood Pressure 147/75 153/75 163/62 Blood Pressure [Left Radial Artery] O2 Sat by Pulse Oximetry 12/10/16 12:30 Temperature Pulse Rate 69 Pulse Rate [ Left Radial] Respiratory Rate Blood Pressure 145/72 Blood Pressure [Left Radial Artery] O2 Sat by Pulse Oximetry - General Appearance General appearance: well-developed, well-nourished EENT: ATNC Respiratory: Present: Clear to Ascultation Cardiology: regular, S1S2 Gastrointestinal: obese Integumentary: no rash Musculoskeletal: other (+edema) Psychiatric: mood/affect appropriate, cooperative - Lab 12/10/16 06:00 12/10/16 06:00 Most recent lab results Calcium 9.4 mg/dL (8.4-10.2) 12/10/16 06:00 Urine Creatinine 336.8 mg/dL (0.1-20.0) H 12/07/16 17:25 Urine Sodium 13 mEq/L 12/07/16 17:25
--- NOTE | 2016-12-10 14:59 | Progress Note ---
Assessment and Plan (1) Acute encephalopathy Current Visit: Yes Status: Acute Plan to address problem: - ventilation improved and can not blame on CO2 narcosis - suspect may be depression related element and may benefit from psychiatric evaluation - CT brain negative for acute process - continue qhs BIPAP for likely SDB (2) PATRIA (acute kidney injury) Current Visit: Yes Status: Acute Plan to address problem: - element of contrast induced nephropathy - nephrology evaluation ongoing - follow I's & O's and electrolytes - tentatively to begin dialysis (3) Anemia Current Visit: Yes Status: Acute Qualifiers: Anemia type: A Iron deficiency anemia type: I Vitamin B12 deficiency anemia type: V Folate deficiency anemia type: F Bone marrow failure anemia type: B Hemolytic anemia type: H Other causes of anemia: O Chronic kidney disease stage: C Plan to address problem: - likely of chronic disease - iron studies - no acute indication for transfusion (4) CAD (coronary artery disease) of artery bypass graft Current Visit: Yes Status: Acute Qualifiers: [place] vs. 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 (5) Discharge planning issues Current Visit: Yes Status: Acute Plan to address problem: - to remain on telemetry; hopefully no volume overload issues down the line - clinical exam suggests pulmonary edema which should hopefully improve with HD/ UF; will repeat CXR next 24-48hrs Subjective Date of service: 12/10/16 Principal diagnosis: Acute Encephalopathy; PATRIA on Dialysis; CAD s/p PCI and stenting Interval history: Seen and examined at bedside; 24 hour events reviewed; nursing and respiratory care staff consulted; no adverse overnight events reported to me; looks depressed; denies acute chest pains or increased SOB; no emesis or overt aspiration Objective Vital Signs - 12hr 12/10/16 12/10/16 12/10/16 04:00 05:43 08:00 Temperature 97.8 F 97.8 F 97.8 F Pulse Rate Pulse Rate [ 61 61 64 Left Radial] Respiratory 20 20 18 Rate Blood Pressure Blood Pressure 131/58 131/58 131/65 [Left Radial Artery] O2 Sat by Pulse 96 96 94 Oximetry 12/10/16 12/10/16 12/10/16 11:00 11:15 11:30 Temperature 98.2 F Pulse Rate 66 66 67 Pulse Rate [ Left Radial] Respiratory 18 Rate Blood Pressure 138/81 136/68 139/77 Blood Pressure [Left Radial Artery] O2 Sat by Pulse Oximetry 12/10/16 12/10/16 12/10/16 11:45 12:00 12:15 Temperature Pulse Rate 67 73 76 Pulse Rate [ Left Radial] Respiratory Rate Blood Pressure 147/75 153/75 163/62 Blood Pressure [Left Radial Artery] O2 Sat by Pulse Oximetry 12/10/16 12:30 Temperature Pulse Rate 69 Pulse Rate [ Left Radial] Respiratory Rate Blood Pressure 145/72 Blood Pressure [Left Radial Artery] O2 Sat by Pulse Oximetry Constitutional: no acute distress, other (somnolent) Eyes: non-icteric ENT: oropharynx moist Neck: supple, no lymphadenopathy Effort: normal Ascultation: Bilateral: diminished breath sounds, rales (scant in posterior bases) Cardiovascular: regular rate and rhythm Gastrointestinal: normoactive bowel sounds, soft, non-tender, non-distended Integumentary: normal Extremities: no cyanosis, no edema, pulses normal, no ischemia or petechiae Neurologic: normal mental status, non-focal exam, pupils equal and round, motor strength normal and Psychiatric: depressed CBC and BMP: 12/17/16 07:52 12/17/16 07:52 ABG, PT/INR, D-dimer: ABG POC ABG pH 7.356 (7.35-7.45) 11/25/16 22:20 POC ABG pCO2 38.1 (35-45) 11/25/16 22:20 POC ABG pO2 67 (80-105) L 11/25/16 22:20 POC ABG HCO3 21.3 11/25/16 22:20 POC ABG Total CO2 22 11/25/16 22:20 POC ABG O2 Sat 92 11/25/16 22:20 PT/INR, D-dimer PT 14.5 Sec. (12.2-14.9) 11/22/16 07:20 INR 1.14 (0.87-1.13) H 11/22/16 07:20 Abnormal lab findings: Abnormal Labs 11/22/16 11/22/16 11/22/16 07:20 07:20 07:20 WBC RBC 3.52 L Hgb Hct Plt Count Lymph % (Auto) [place] % (Auto) 11.5 H Eos % (Auto) Lymph # Seg Neutrophils % Seg Neuts % (Manual) Lymphocytes % (Manual) Monocytes % (Manual) Lymphocytes # (Manual) INR 1.14 H APTT Activated Clotting Time POC ABG pH POC ABG pO2 Sodium Potassium Chloride 108.0 H Carbon Dioxide BUN 25 H Creatinine 1.4 H Glucose POC Glucose Uric Acid Calcium AST ALT Total Creatine Kinase Albumin Urine WBC (Auto) Urine Creatinine Urine Chloride Crossmatch 11/22/16 11/22/16 11/22/16 07:37 10:46 13:13 WBC RBC Hgb Hct Plt Count Lymph % (Auto) [place] % (Auto) Eos % (Auto) Lymph # Seg Neutrophils % Seg Neuts % (Manual) Lymphocytes % (Manual) Monocytes % (Manual) Lymphocytes # (Manual) INR APTT 37.7 H Activated Clotting Time 327 H 202 H POC ABG pH POC ABG pO2 Sodium Potassium Chloride Carbon Dioxide BUN Creatinine Glucose POC Glucose Uric Acid Calcium AST ALT Total Creatine Kinase Albumin Urine WBC (Auto) Urine Creatinine Urine Chloride Crossmatch 11/22/16 11/23/16 11/23/16 14:25 06:49 06:49 WBC 4.1 L RBC 2.74 L Hgb 7.7 L Hct 23.8 L D Plt Count 135 L Lymph % (Auto) [place] % (Auto) 13.8 H Eos % (Auto) Lymph # Seg Neutrophils % Seg Neuts % (Manual) Lymphocytes % (Manual) Monocytes % (Manual) Lymphocytes # (Manual) INR APTT Activated Clotting Time 175 H POC ABG pH POC ABG pO2 Sodium Potassium Chloride Carbon Dioxide BUN 27 H Creatinine 1.8 H Glucose 137 H POC Glucose Uric Acid Calcium 8.0 L AST ALT Total Creatine Kinase 183 H Albumin Urine WBC (Auto) Urine Creatinine Urine Chloride Crossmatch 11/23/16 11/23/16 11/23/16 11:07 12:45 17:32 WBC RBC 2.98 L Hgb 8.5 L Hct 26.3 L Plt Count Lymph % (Auto) [place] % (Auto) 13.2 H Eos % (Auto) Lymph # Seg Neutrophils % Seg Neuts % (Manual) Lymphocytes % (Manual) Monocytes % (Manual) Lymphocytes # (Manual) INR APTT Activated Clotting Time POC ABG pH POC ABG pO2 Sodium Potassium Chloride Carbon Dioxide BUN Creatinine Glucose POC Glucose 134 H 171 H Uric Acid Calcium AST ALT Total Creatine Kinase Albumin Urine WBC (Auto) Urine Creatinine Urine Chloride Crossmatch 11/23/16 11/24/16 11/24/16 21:24 05:28 05:28 WBC RBC Hgb 8.6 L Hct 26.8 L Plt Count Lymph % (Auto) [place] % (Auto) Eos % (Auto) Lymph # Seg Neutrophils % Seg Neuts % (Manual) Lymphocytes % (Manual) Monocytes % (Manual) Lymphocytes # (Manual) INR APTT Activated Clotting Time POC ABG pH POC ABG pO2 Sodium Potassium 5.9 H D Chloride Carbon Dioxide 19 L BUN 33 H Creatinine 2.7 H Glucose 162 H POC Glucose 174 H Uric Acid Calcium AST ALT Total Creatine Kinase Albumin Urine WBC (Auto) Urine Creatinine Urine Chloride Crossmatch 11/24/16 11/24/16 11/24/16 06:23 07:05 07:09 WBC RBC Hgb Hct Plt Count Lymph % (Auto) [place] % (Auto) Eos % (Auto) Lymph # Seg Neutrophils % Seg Neuts % (Manual) Lymphocytes % (Manual) Monocytes % (Manual) Lymphocytes # (Manual) INR APTT Activated Clotting Time POC ABG pH 7.264 L POC ABG pO2 33 L Sodium Potassium 5.8 H Chloride Carbon Dioxide 20 L BUN 33 H Creatinine 2.8 H Glucose 158 H POC Glucose 209 H Uric Acid Calcium AST 100 H ALT 118 H Total Creatine Kinase Albumin 3.5 L Urine WBC (Auto) Urine Creatinine Urine Chloride Crossmatch 11/24/16 11/24/16 11/24/16 07:19 08:50 11:45 WBC RBC Hgb Hct Plt Count Lymph % (Auto) [place] % (Auto) Eos % (Auto) Lymph # Seg Neutrophils % Seg Neuts % (Manual) Lymphocytes % (Manual) Monocytes % (Manual) Lymphocytes # (Manual) INR APTT Activated Clotting Time POC ABG pH 7.285 L POC ABG pO2 64 L Sodium Potassium Chloride Carbon Dioxide BUN Creatinine Glucose POC Glucose 193 H 169 H Uric Acid Calcium AST ALT Total Creatine Kinase Albumin Urine WBC (Auto) Urine Creatinine Urine Chloride Crossmatch 11/24/16 11/24/16 11/24/16 15:24 15:32 17:14 WBC RBC Hgb Hct Plt Count Lymph % (Auto) [place] % (Auto) Eos % (Auto) Lymph # Seg Neutrophils % Seg Neuts % (Manual) Lymphocytes % (Manual) Monocytes % (Manual) Lymphocytes # (Manual) INR APTT Activated Clotting Time POC ABG pH POC ABG pO2 Sodium Potassium 5.2 H Chloride Carbon Dioxide 20 L BUN 37 H Creatinine 3.0 H Glucose 144 H POC Glucose 195 H Uric Acid Calcium AST ALT Total Creatine Kinase Albumin Urine WBC (Auto) Urine Creatinine Urine Chloride Crossmatch See Detail 11/24/16 11/24/16 11/25/16 21:57 23:39 05:30 WBC RBC Hgb Hct Plt Count Lymph % (Auto) [place] % (Auto) Eos % (Auto) Lymph # Seg Neutrophils % Seg Neuts % (Manual) Lymphocytes % (Manual) Monocytes % (Manual) Lymphocytes # (Manual) INR APTT Activated Clotting Time POC ABG pH POC ABG pO2 Sodium Potassium Chloride Carbon Dioxide BUN Creatinine Glucose POC Glucose 112 H 129 H Uric Acid Calcium AST ALT Total Creatine Kinase Albumin Urine WBC (Auto) Urine Creatinine 295.3 H Urine Chloride 31.3 L Crossmatch 11/25/16 11/25/16 11/25/16 07:00 07:00 08:40 WBC RBC 3.30 L Hgb 9.5 L Hct 29.0 L Plt Count 119 L Lymph % (Auto) [place] % (Auto) 9.5 H Eos % (Auto) Lymph # Seg Neutrophils % 72.7 H Seg Neuts % (Manual) Lymphocytes % (Manual) Monocytes % (Manual) Lymphocytes # (Manual) INR APTT Activated Clotting Time POC ABG pH POC ABG pO2 Sodium Potassium Chloride 110.1 H Carbon Dioxide 18 L BUN 38 H Creatinine 2.6 H Glucose 123 H POC Glucose 129 H Uric Acid Calcium 8.2 L AST ALT Total Creatine Kinase Albumin Urine WBC (Auto) Urine Creatinine Urine Chloride Crossmatch 11/25/16 11/25/16 11/25/16 11:24 12:17 16:16 WBC RBC Hgb Hct Plt Count Lymph % (Auto) [place] % (Auto) Eos % (Auto) Lymph # Seg Neutrophils % Seg Neuts % (Manual) Lymphocytes % (Manual) Monocytes % (Manual) Lymphocytes # (Manual) INR APTT Activated Clotting Time POC ABG pH 7.327 L POC ABG pO2 Sodium Potassium Chloride Carbon Dioxide BUN Creatinine Glucose POC Glucose 142 H 151 H Uric Acid Calcium AST ALT Total Creatine Kinase Albumin Urine WBC (Auto) Urine Creatinine Urine Chloride Crossmatch 11/25/16 11/25/16 11/26/16 21:48 22:20 00:58 WBC RBC 3.23 L Hgb 9.2 L Hct 27.9 L Plt Count 119 L Lymph % (Auto) 10.2 L [place] % (Auto) 7.6 H Eos % (Auto) Lymph # 0.8 L Seg Neutrophils % 79.9 H Seg Neuts % (Manual) Lymphocytes % (Manual) Monocytes % (Manual) Lymphocytes # (Manual) INR APTT Activated Clotting Time POC ABG pH POC ABG pO2 67 L Sodium Potassium Chloride Carbon Dioxide BUN Creatinine Glucose POC Glucose 149 H Uric Acid Calcium AST ALT Total Creatine Kinase Albumin Urine WBC (Auto) Urine Creatinine Urine Chloride Crossmatch 11/26/16 11/26/16 11/26/16 06:11 07:40 11:28 WBC RBC Hgb Hct Plt Count Lymph % (Auto) [place] % (Auto) Eos % (Auto) Lymph # Seg Neutrophils % Seg Neuts % (Manual) Lymphocytes % (Manual) Monocytes % (Manual) Lymphocytes # (Manual) INR APTT Activated Clotting Time POC ABG pH POC ABG pO2 Sodium Potassium Chloride Carbon Dioxide 21 L BUN 41 H Creatinine 2.5 H Glucose 151 H POC Glucose 144 H 168 H Uric Acid Calcium 8.1 L AST ALT Total Creatine Kinase Albumin Urine WBC (Auto) Urine Creatinine Urine Chloride Crossmatch 11/26/16 11/27/16 11/27/16 15:50 00:03 03:45 WBC RBC Hgb Hct Plt Count Lymph % (Auto) [place] % (Auto) Eos % (Auto) Lymph # Seg Neutrophils % Seg Neuts % (Manual) Lymphocytes % (Manual) Monocytes % (Manual) Lymphocytes # (Manual) INR APTT Activated Clotting Time POC ABG pH POC ABG pO2 Sodium Potassium Chloride Carbon Dioxide BUN 46 H Creatinine 2.8 H Glucose 147 H POC Glucose 153 H 183 H Uric Acid Calcium 8.1 L AST ALT Total Creatine Kinase Albumin Urine WBC (Auto) Urine Creatinine Urine Chloride Crossmatch 11/27/16 11/27/16 11/27/16 06:26 07:32 11:53 WBC RBC Hgb Hct Plt Count Lymph % (Auto) [place] % (Auto) Eos % (Auto) Lymph # Seg Neutrophils % Seg Neuts % (Manual) Lymphocytes % (Manual) Monocytes % (Manual) Lymphocytes # (Manual) INR APTT Activated Clotting Time POC ABG pH POC ABG pO2 Sodium Potassium Chloride Carbon Dioxide BUN Creatinine Glucose POC Glucose 208 H 193 H 180 H Uric Acid Calcium AST ALT Total Creatine Kinase Albumin Urine WBC (Auto) Urine Creatinine Urine Chloride Crossmatch 11/27/16 11/27/16 11/28/16 16:42 21:51 08:13 WBC RBC Hgb Hct Plt Count Lymph % (Auto) [place] % (Auto) Eos % (Auto) Lymph # Seg Neutrophils % Seg Neuts % (Manual) Lymphocytes % (Manual) Monocytes % (Manual) Lymphocytes # (Manual) INR APTT Activated Clotting Time POC ABG pH POC ABG pO2 Sodium Potassium Chloride Carbon Dioxide BUN Creatinine Glucose POC Glucose 161 H 167 H 151 H Uric Acid Calcium AST ALT Total Creatine Kinase Albumin Urine WBC (Auto) Urine Creatinine Urine Chloride Crossmatch 11/28/16 11/28/16 11/28/16 10:01 10:01 12:30 WBC RBC Hgb 8.5 L Hct 25.3 L Plt Count Lymph % (Auto) [place] % (Auto) Eos % (Auto) Lymph # Seg Neutrophils % Seg Neuts % (Manual) Lymphocytes % (Manual) Monocytes % (Manual) Lymphocytes # (Manual) INR APTT Activated Clotting Time POC ABG pH POC ABG pO2 Sodium 136 L Potassium Chloride Carbon Dioxide BUN 50 H Creatinine 2.8 H Glucose 143 H POC Glucose 154 H Uric Acid Calcium 8.1 L AST ALT Total Creatine Kinase Albumin Urine WBC (Auto) Urine Creatinine Urine Chloride Crossmatch 11/28/16 11/28/16 11/28/16 15:22 16:55 20:40 WBC RBC Hgb Hct Plt Count Lymph % (Auto) [place] % (Auto) Eos % (Auto) Lymph # Seg Neutrophils % Seg Neuts % (Manual) Lymphocytes % (Manual) Monocytes % (Manual) Lymphocytes # (Manual) INR APTT Activated Clotting Time POC ABG pH POC ABG pO2 Sodium Potassium Chloride Carbon Dioxide BUN Creatinine Glucose POC Glucose 191 H 177 H Uric Acid Calcium AST ALT Total Creatine Kinase Albumin Urine WBC (Auto) Urine Creatinine Urine Chloride Crossmatch See Detail 11/29/16 11/29/16 11/29/16 07:18 07:18 07:31 WBC RBC Hgb 9.5 L Hct 28.2 L Plt Count Lymph % (Auto) [place] % (Auto) Eos % (Auto) Lymph # Seg Neutrophils % Seg Neuts % (Manual) Lymphocytes % (Manual) Monocytes % (Manual) Lymphocytes # (Manual) INR APTT Activated Clotting Time POC ABG pH POC ABG pO2 Sodium 136 L Potassium Chloride Carbon Dioxide BUN 51 H Creatinine 2.7 H Glucose 120 H POC Glucose 127 H Uric Acid Calcium 8.1 L AST ALT Total Creatine Kinase Albumin Urine WBC (Auto) Urine Creatinine Urine Chloride Crossmatch 11/29/16 11/29/16 11/29/16 12:49 17:35 20:31 WBC RBC Hgb Hct Plt Count Lymph % (Auto) [place] % (Auto) Eos % (Auto) Lymph # Seg Neutrophils % Seg Neuts % (Manual) Lymphocytes % (Manual) Monocytes % (Manual) Lymphocytes # (Manual) INR APTT Activated Clotting Time POC ABG pH POC ABG pO2 Sodium Potassium Chloride Carbon Dioxide BUN Creatinine Glucose POC Glucose 213 H 179 H 154 H Uric Acid Calcium AST ALT Total Creatine Kinase Albumin Urine WBC (Auto) Urine Creatinine Urine Chloride Crossmatch 11/30/16 11/30/16 11/30/16 08:25 09:52 16:07 WBC RBC Hgb Hct Plt Count Lymph % (Auto) [place] % (Auto) Eos % (Auto) Lymph # Seg Neutrophils % Seg Neuts % (Manual) Lymphocytes % (Manual) Monocytes % (Manual) Lymphocytes # (Manual) INR APTT Activated Clotting Time POC ABG pH POC ABG pO2 Sodium Potassium Chloride Carbon Dioxide BUN 52 H Creatinine 3.0 H Glucose 156 H POC Glucose 127 H 216 H Uric Acid Calcium AST ALT Total Creatine Kinase Albumin Urine WBC (Auto) Urine Creatinine Urine Chloride Crossmatch 11/30/16 12/01/16 12/01/16 20:45 08:34 08:48 WBC RBC Hgb Hct Plt Count Lymph % (Auto) [place] % (Auto) Eos % (Auto) Lymph # Seg Neutrophils % Seg Neuts % (Manual) Lymphocytes % (Manual) Monocytes % (Manual) Lymphocytes # (Manual) INR APTT Activated Clotting Time POC ABG pH POC ABG pO2 Sodium 136 L Potassium Chloride Carbon Dioxide BUN 50 H Creatinine 3.0 H Glucose 124 H POC Glucose 197 H 136 H Uric Acid Calcium AST ALT Total Creatine Kinase Albumin Urine WBC (Auto) Urine Creatinine Urine Chloride Crossmatch 12/01/16 12/01/16 12/01/16 11:35 16:56 22:08 WBC RBC Hgb Hct Plt Count Lymph % (Auto) [place] % (Auto) Eos % (Auto) Lymph # Seg Neutrophils % Seg Neuts % (Manual) Lymphocytes % (Manual) Monocytes % (Manual) Lymphocytes # (Manual) INR APTT Activated Clotting Time POC ABG pH POC ABG pO2 Sodium Potassium Chloride Carbon Dioxide BUN Creatinine Glucose POC Glucose 205 H 210 H 157 H Uric Acid Calcium AST ALT Total Creatine Kinase Albumin Urine WBC (Auto) Urine Creatinine Urine Chloride Crossmatch 12/02/16 12/02/16 12/02/16 05:52 08:47 15:16 WBC RBC Hgb Hct Plt Count Lymph % (Auto) [place] % (Auto) Eos % (Auto) Lymph # Seg Neutrophils % Seg Neuts % (Manual) Lymphocytes % (Manual) Monocytes % (Manual) Lymphocytes # (Manual) INR APTT Activated Clotting Time POC ABG pH POC ABG pO2 Sodium Potassium Chloride Carbon Dioxide BUN 48 H Creatinine 2.7 H Glucose 136 H POC Glucose 134 H 226 H Uric Acid Calcium AST ALT Total Creatine Kinase Albumin Urine WBC (Auto) Urine Creatinine Urine Chloride Crossmatch 12/02/16 12/03/16 12/03/16 22:53 05:58 05:58 WBC 4.2 L RBC 3.37 L Hgb 9.7 L Hct 29.4 L Plt Count Lymph % (Auto) [place] % (Auto) Eos % (Auto) Lymph # Seg Neutrophils % Seg Neuts % (Manual) Lymphocytes % (Manual) Monocytes % (Manual) Lymphocytes # (Manual) INR APTT Activated Clotting Time POC ABG pH POC ABG pO2 Sodium Potassium Chloride Carbon Dioxide BUN 47 H Creatinine 2.7 H Glucose 142 H POC Glucose 235 H Uric Acid Calcium AST ALT Total Creatine Kinase Albumin Urine WBC (Auto) Urine Creatinine Urine Chloride Crossmatch 12/03/16 12/03/16 12/03/16 13:04 16:47 21:50 WBC RBC Hgb Hct Plt Count Lymph % (Auto) [place] % (Auto) Eos % (Auto) Lymph # Seg Neutrophils % Seg Neuts % (Manual) Lymphocytes % (Manual) Monocytes % (Manual) Lymphocytes # (Manual) INR APTT Activated Clotting Time POC ABG pH POC ABG pO2 Sodium Potassium Chloride Carbon Dioxide BUN Creatinine Glucose POC Glucose 135 H 140 H 170 H Uric Acid Calcium AST ALT Total Creatine Kinase Albumin Urine WBC (Auto) Urine Creatinine Urine Chloride Crossmatch 12/04/16 12/04/16 12/04/16 07:26 12:21 16:43 WBC RBC Hgb Hct Plt Count Lymph % (Auto) [place] % (Auto) Eos % (Auto) Lymph # Seg Neutrophils % Seg Neuts % (Manual) Lymphocytes % (Manual) Monocytes % (Manual) Lymphocytes # (Manual) INR APTT Activated Clotting Time POC ABG pH POC ABG pO2 Sodium Potassium Chloride Carbon Dioxide BUN Creatinine Glucose POC Glucose 145 H 203 H 210 H Uric Acid Calcium AST ALT Total Creatine Kinase Albumin Urine WBC (Auto) Urine Creatinine Urine Chloride Crossmatch 12/04/16 12/05/16 12/05/16 21:41 07:54 07:54 WBC RBC 3.10 L Hgb 9.0 L Hct 26.9 L Plt Count Lymph % (Auto) [place] % (Auto) 13.8 H Eos % (Auto) 5.3 H Lymph # 1.1 L Seg Neutrophils % Seg Neuts % (Manual) Lymphocytes % (Manual) Monocytes % (Manual) Lymphocytes # (Manual) INR APTT Activated Clotting Time POC ABG pH POC ABG pO2 Sodium Potassium Chloride Carbon Dioxide BUN 51 H Creatinine 3.7 H Glucose 132 H POC Glucose 211 H Uric Acid Calcium AST ALT Total Creatine Kinase Albumin Urine WBC (Auto) Urine Creatinine Urine Chloride Crossmatch 12/05/16 12/05/16 12/05/16 08:30 11:46 22:02 WBC RBC Hgb Hct Plt Count Lymph % (Auto) [place] % (Auto) Eos % (Auto) Lymph # Seg Neutrophils % Seg Neuts % (Manual) Lymphocytes % (Manual) Monocytes % (Manual) Lymphocytes # (Manual) INR APTT Activated Clotting Time POC ABG pH POC ABG pO2 Sodium Potassium Chloride Carbon Dioxide BUN Creatinine Glucose POC Glucose 140 H 225 H 165 H Uric Acid Calcium AST ALT Total Creatine Kinase Albumin Urine WBC (Auto) Urine Creatinine Urine Chloride Crossmatch 12/06/16 12/06/16 12/06/16 08:17 09:10 09:10 WBC RBC Hgb Hct Plt Count Lymph % (Auto) [place] % (Auto) Eos % (Auto) Lymph # Seg Neutrophils % Seg Neuts % (Manual) Lymphocytes % (Manual) Monocytes % (Manual) Lymphocytes # (Manual) INR APTT Activated Clotting Time POC ABG pH POC ABG pO2 Sodium Potassium Chloride 97.6 L Carbon Dioxide BUN 50 H Creatinine 3.8 H Glucose 126 H POC Glucose 166 H Uric Acid 10.0 H Calcium AST ALT Total Creatine Kinase Albumin Urine WBC (Auto) Urine Creatinine Urine Chloride Crossmatch 12/06/16 12/06/16 12/06/16 12:18 17:39 22:31 WBC RBC Hgb Hct Plt Count Lymph % (Auto) [place] % (Auto) Eos % (Auto) Lymph # Seg Neutrophils % Seg Neuts % (Manual) Lymphocytes % (Manual) Monocytes % (Manual) Lymphocytes # (Manual) INR APTT Activated Clotting Time POC ABG pH POC ABG pO2 Sodium Potassium Chloride Carbon Dioxide BUN Creatinine Glucose POC Glucose 188 H 176 H 157 H Uric Acid Calcium AST ALT Total Creatine Kinase Albumin Urine WBC (Auto) Urine Creatinine Urine Chloride Crossmatch 12/07/16 12/07/16 12/07/16 08:48 08:49 09:01 WBC RBC Hgb Hct Plt Count Lymph % (Auto) [place] % (Auto) Eos % (Auto) Lymph # Seg Neutrophils % Seg Neuts % (Manual) Lymphocytes % (Manual) Monocytes % (Manual) Lymphocytes # (Manual) INR APTT Activated Clotting Time POC ABG pH POC ABG pO2 Sodium Potassium Chloride 97.9 L Carbon Dioxide BUN 52 H Creatinine 4.2 H Glucose 105 H POC Glucose 107 H Uric Acid 10.3 H Calcium AST ALT Total Creatine Kinase 188 H Albumin Urine WBC (Auto) Urine Creatinine Urine Chloride Crossmatch 12/07/16 12/07/16 12/07/16 12:27 16:59 17:25 WBC RBC Hgb Hct Plt Count Lymph % (Auto) [place] % (Auto) Eos % (Auto) Lymph # Seg Neutrophils % Seg Neuts % (Manual) Lymphocytes % (Manual) Monocytes % (Manual) Lymphocytes # (Manual) INR APTT Activated Clotting Time POC ABG pH POC ABG pO2 Sodium Potassium Chloride Carbon Dioxide BUN Creatinine Glucose POC Glucose 163 H 124 H Uric Acid Calcium AST ALT Total Creatine Kinase Albumin Urine WBC (Auto) 9.0 H Urine Creatinine Urine Chloride Crossmatch 12/07/16 12/07/16 12/08/16 17:25 22:04 07:53 WBC RBC Hgb Hct Plt Count Lymph % (Auto) [place] % (Auto) Eos % (Auto) Lymph # Seg Neutrophils % Seg Neuts % (Manual) Lymphocytes % (Manual) Monocytes % (Manual) Lymphocytes # (Manual) INR APTT Activated Clotting Time POC ABG pH POC ABG pO2 Sodium Potassium Chloride Carbon Dioxide BUN Creatinine Glucose POC Glucose 133 H 168 H Uric Acid Calcium AST ALT Total Creatine Kinase Albumin Urine WBC (Auto) Urine Creatinine 336.8 H Urine Chloride Crossmatch 12/08/16 12/08/16 12/08/16 08:05 12:17 22:09 WBC RBC Hgb Hct Plt Count Lymph % (Auto) [place] % (Auto) Eos % (Auto) Lymph # Seg Neutrophils % Seg Neuts % (Manual) Lymphocytes % (Manual) Monocytes % (Manual) Lymphocytes # (Manual) INR APTT Activated Clotting Time POC ABG pH POC ABG pO2 Sodium Potassium Chloride Carbon Dioxide BUN 55 H Creatinine 5.0 H Glucose 142 H POC Glucose 140 H 154 H Uric Acid Calcium AST ALT Total Creatine Kinase Albumin Urine WBC (Auto) Urine Creatinine Urine Chloride Crossmatch 12/09/16 12/09/16 12/09/16 06:40 07:47 08:41 WBC RBC 3.09 L Hgb 8.8 L Hct 27.0 L Plt Count Lymph % (Auto) [place] % (Auto) Eos % (Auto) Lymph # Seg Neutrophils % Seg Neuts % (Manual) 75.0 H Lymphocytes % (Manual) 13.0 L Monocytes % (Manual) 8.0 H Lymphocytes # (Manual) 0.7 L INR APTT Activated Clotting Time POC ABG pH POC ABG pO2 Sodium Potassium Chloride Carbon Dioxide BUN 23 H Creatinine 3.1 H Glucose 108 H POC Glucose 115 H Uric Acid Calcium AST ALT Total Creatine Kinase Albumin Urine WBC (Auto) Urine Creatinine Urine Chloride Crossmatch 12/09/16 12/09/16 12/09/16 08:41 12:26 22:19 WBC RBC Hgb Hct Plt Count Lymph % (Auto) [place] % (Auto) Eos % (Auto) Lymph # Seg Neutrophils % Seg Neuts % (Manual) Lymphocytes % (Manual) Monocytes % (Manual) Lymphocytes # (Manual) INR APTT Activated Clotting Time POC ABG pH POC ABG pO2 Sodium Potassium Chloride Carbon Dioxide BUN 23 H Creatinine 3.0 H Glucose 108 H POC Glucose 140 H 139 H Uric Acid Calcium AST ALT Total Creatine Kinase Albumin Urine WBC (Auto) Urine Creatinine Urine Chloride Crossmatch 12/10/16 12/10/16 12/10/16 06:00 06:00 06:00 WBC RBC 3.47 L Hgb 9.8 L Hct Plt Count Lymph % (Auto) [place] % (Auto) Eos % (Auto) Lymph # Seg Neutrophils % Seg Neuts % (Manual) Lymphocytes % (Manual) Monocytes % (Manual) Lymphocytes # (Manual) INR APTT Activated Clotting Time POC ABG pH POC ABG pO2 Sodium Potassium Chloride Carbon Dioxide BUN Creatinine 1.9 H 1.9 H Glucose 120 H 120 H POC Glucose Uric Acid Calcium AST ALT Total Creatine Kinase Albumin 5.1 H Urine WBC (Auto) Urine Creatinine Urine Chloride Crossmatch 12/10/16 08:34 WBC RBC Hgb Hct Plt Count Lymph % (Auto) [place] % (Auto) Eos % (Auto) Lymph # Seg Neutrophils % Seg Neuts % (Manual) Lymphocytes % (Manual) Monocytes % (Manual) Lymphocytes # (Manual) INR APTT Activated Clotting Time POC ABG pH POC ABG pO2 Sodium Potassium Chloride Carbon Dioxide BUN Creatinine Glucose POC Glucose 137 H Uric Acid Calcium AST ALT Total Creatine Kinase Albumin Urine WBC (Auto) Urine Creatinine Urine Chloride Crossmatch
[2016-12-10] MEDS: IMDUR PO SCH (15:30)
[2016-12-10] MEDS: COREG PO SCH ×2 (15:30→22:50)
[2016-12-10] MEDS: PLAVIX PO SCH (15:30)
[2016-12-10] MEDS: ECOTRIN PO SCH (15:30)
[2016-12-10] MEDS: PROCARDIA XL PO SCH ×2 (15:31→22:50)
[2016-12-10] MEDS: HEPARIN SUB-Q SCH ×2 (15:33→22:50)
--- NOTE | 2016-12-10 15:45 | Progress Note ---
Assessment and Plan 1. Abd bloating - etiology unclear. Pt has gained over 20# over the last several months. May be due to edema as well. - awaiting U/S results 2. Substernal burning - initiate PPI instead of H2 blockers. Likely due to weight gain. Subjective Date of service: 12/10/16 Principal diagnosis: ascites Interval history: Pt complains of mild SS burning discomfort. No abd pain. Objective - Constitutional Vitals: Vital Signs - 12hr 12/10/16 12/10/16 12/10/16 04:00 05:43 08:00 Temperature 97.8 F 97.8 F 97.8 F Pulse Rate Pulse Rate [ 61 61 64 Left Radial] Respiratory 20 20 18 Rate Blood Pressure Blood Pressure 131/58 131/58 131/65 [Left Radial Artery] O2 Sat by Pulse 96 96 94 Oximetry 12/10/16 12/10/16 12/10/16 11:00 11:15 11:30 Temperature 98.2 F Pulse Rate 66 66 67 Pulse Rate [ Left Radial] Respiratory 18 Rate Blood Pressure 138/81 136/68 139/77 Blood Pressure [Left Radial Artery] O2 Sat by Pulse Oximetry 12/10/16 12/10/16 12/10/16 11:45 12:00 12:15 Temperature Pulse Rate 67 73 76 Pulse Rate [ Left Radial] Respiratory Rate Blood Pressure 147/75 153/75 163/62 Blood Pressure [Left Radial Artery] O2 Sat by Pulse Oximetry 12/10/16 12:30 Temperature Pulse Rate 69 Pulse Rate [ Left Radial] Respiratory Rate Blood Pressure 145/72 Blood Pressure [Left Radial Artery] O2 Sat by Pulse Oximetry General appearance: Present: no acute distress - EENT Eyes: no PERRL (L eye blind, R eye RRL) ENT: hearing intact - Respiratory Respiratory effort: normal Extremity abnormal: edema (2+ edema) - Gastrointestinal General gastrointestinal: Present: soft, non-tender - Labs CBC & Chem 7: 12/10/16 06:00 12/10/16 06:00 Labs: Abnormal lab results 12/09/16 12/10/16 12/10/16 Range/Units 22:19 06:00 06:00 RBC 3.47 L (3.65-5.03) M/mm3 Hgb 9.8 L (10.1-14.3) gm/dl Creatinine 1.9 H (0.7-1.2) mg/dL Glucose 120 H (65-100) mg/dL POC Glucose 139 H (70-105) Albumin (3.9-5) g/dL 12/10/16 12/10/16 Range/Units 06:00 08:34 RBC (3.65-5.03) M/mm3 Hgb (10.1-14.3) gm/dl Creatinine 1.9 H (0.7-1.2) mg/dL Glucose 120 H (65-100) mg/dL POC Glucose 137 H (70-105) Albumin 5.1 H (3.9-5) g/dL
[2016-12-10] MEDS: HEPARIN IV PRN (16:23)
[2016-12-10] MEDS: TYLENOL PO PRN (17:12)
[2016-12-11 05:21] LABS: Albumin 4.3 g/dL (3.8-4.8); Gamma Globulin 0.8 g/dL (0.8-1.7)
[2016-12-11 07:13] LABS: BUN/Creatinine Ratio 3.47; Calcium 9.2 mg/dL (8.4-10.2); Potassium 4.2 mmol/L (3.6-5.0)
--- NOTE | 2016-12-11 10:02 | Progress Note ---
Assessment and Plan Altered mental status -resolved Head CT shows no acute intracranial process Volume overload Hyperkalemia -resolved Coronary artery disease with prior CABG Right and LHC findings: moderate to severe elevated left and right heart filling pressures; moderate to severe pulmonary HTN 3 vessel disease ESTRADA to LAD patent SVG x 2 occluded (Diag and OM) subtotal occlusion of proximal segment of SVG to RCA treated with a drug eluting stent EF 40-45% Acute renal failure secondary to contrast nephropathy initiated on dialysis Acute drop in H&H s/p blood transfusion Ischemic Cardiomyopathy Hypertension Deconditioning Ascites Continue medical therapy for coronary artery disease, including dual oral antiplatelet therapy for recent coronary stent. Subjective Date of service: 12/11/16 Principal diagnosis: ascites Interval history: No events overnight Objective Vital Signs Temp Pulse Pulse Resp BP BP Pulse Ox 12/11/16 05:57 98.1 F 61 20 99/54 100 12/11/16 00:10 98.6 F 63 20 129/68 100 12/10/16 22:50 69 120/59 12/10/16 20:00 99.5 F 72 20 120/59 96 12/10/16 17:45 63 12/10/16 16:00 100 F H 74 18 108/72 95 12/10/16 15:30 74 160/54 12/10/16 14:40 98.4 F 70 18 150/70 12/10/16 14:30 70 150/70 12/10/16 14:15 72 157/72 12/10/16 14:00 71 149/79 12/10/16 13:45 71 152/81 12/10/16 13:30 70 148/74 12/10/16 13:15 70 135/76 12/10/16 13:00 70 152/76 12/10/16 12:45 69 144/84 12/10/16 12:30 69 145/72 12/10/16 12:15 76 163/62 12/10/16 12:00 73 153/75 12/10/16 11:45 67 147/75 12/10/16 11:30 67 139/77 12/10/16 11:15 66 136/68 12/10/16 11:00 98.2 F 66 74 18 138/81 98 - Physical Examination Narrative exam: vitals reviewed No acute distress HENT- carotids no bruit CVS- S1 S2 heard no significant murmur RS- NVBS heard P/A- Soft BS heard [employer] - non focal Extremities- edema 2+ General: No Apparent Distress HEENT: Positive: PERRL, Normocephaly Neck: Positive: neck supple, trachea midline Neuro: Positive: Grossly Intact, Weakness Abdomen: Positive: Distended Incision: Cardiac Cath Site Extremities: Present: +1 Edema - Labs and Meds Comprehensive Metabolic Panel 12/07/16 12/11/16 Range/Units 10:49 06:02 Sodium 139 (137-145) mmol/L Potassium 4.2 (3.6-5.0) mmol/L Chloride 97.0 L (98-107) mmol/L Carbon Dioxide 31 H (22-30) mmol/L BUN 8 (7-17) mg/dL Creatinine 2.3 H (0.7-1.2) mg/dL Glucose 133 H (65-100) mg/dL Calcium 9.2 (8.4-10.2) mg/dL Albumin 4.3 (3.8-4.8) g/dL
[2016-12-11] MEDS: IMDUR PO SCH (10:15)
[2016-12-11] MEDS: ECOTRIN PO SCH (10:15)
[2016-12-11] MEDS: PLAVIX PO SCH (10:16)
[2016-12-11] MEDS: PROTONIX PO SCH (10:16)
[2016-12-11] MEDS: PROCARDIA XL PO SCH (10:17)
[2016-12-11] MEDS: HEPARIN SUB-Q SCH ×2 (10:18→22:36)
[2016-12-11] MEDS: COREG PO SCH ×2 (10:20→21:26)
--- NOTE | 2016-12-11 10:28 | Ultrasound Report ---
ULTRASOUND ABDOMEN COMPLETE: Technique: Transabdominal ultrasound with color Doppler interrogation. History: Ascites. Findings: The liver is normal size, contour and echotexture. The gallbladder has been surgically removed. The CBD measures 4.8 mm there is no biliary dilatation. The visualized portions of the pancreas including the head and proximal body are within normal limits. Both kidneys are slightly echogenic but normal size and position. No focal renal lesion or hydronephrosis. The spleen and aorta are within normal limits. No aneurysmal dilatation is noted. Trace ascites in all 4 quadrants and small right pleural effusion are noted. IMPRESSION: Trace ascites. Small right pleural effusion. Renal parenchymal disease.
--- NOTE | 2016-12-11 12:39 | Progress Note ---
Assessment and Plan 1. Abd bloating - etiology unclear, but likely due to volume overload and subQ edema. Also, pt has gained over 20# over the last several months, which could also be due to volume overload. - adjust dialysis appropriately 2. Substernal burning - Resolved on PPI. No further GI recommendations. Will sign off. Subjective Date of service: 12/11/16 Principal diagnosis: ascites Interval history: Pt feels well. Denies heartburn. Objective - Constitutional Vitals: Vital Signs - 12hr 12/11/16 12/11/16 12/11/16 05:57 08:00 10:15 Temperature 98.1 F 98.2 F Pulse Rate 68 Pulse Rate [ 61 68 Left Radial] Respiratory 20 18 Rate Blood Pressure 107/53 Blood Pressure 99/54 107/53 [Left Radial Artery] O2 Sat by Pulse 100 99 Oximetry 12/11/16 10:20 Temperature Pulse Rate 68 Pulse Rate [ Left Radial] Respiratory Rate Blood Pressure 107/53 Blood Pressure [Left Radial Artery] O2 Sat by Pulse Oximetry General appearance: Present: no acute distress - EENT ENT: hearing intact Extremity abnormal: edema (2+) - Gastrointestinal General gastrointestinal: Present: soft, non-tender - Labs CBC & Chem 7: 12/10/16 06:00 12/11/16 06:02 Labs: Abnormal lab results 12/10/16 12/11/16 Range/Units 21:00 06:02 Chloride 97.0 L (98-107) mmol/L Carbon Dioxide 31 H (22-30) mmol/L Creatinine 2.3 H (0.7-1.2) mg/dL Glucose 133 H (65-100) mg/dL POC Glucose 155 H (70-105)
--- NOTE | 2016-12-11 13:30 | Progress Note ---
Assessment and Plan Assessment and plan: Patient is a 56-year-old female with past medical history of CKD with baseline creatnine of 1.8, hyperlipidemia, hypertension CAD and also congestive heart failure with ejection fraction of 40-50% in 2013 and also ischemic cardiomyopathy. Presented for an outpatient cardiac catheterization chest without PCI of SVG to RCA with 99% to 0% with 3.0 mm DE stent. Patient was kept overnight in the hospital to monitor creatinine before discharge. Repeat labs in the morning did reveal an increase in creatinine around 2.7. Patient was also lethargic with altered sensorium and was placed in the ICU for close observation. She was also on nitro drip but with no fever blood pressure was adequately controlled. Subsequently the Lasix was discontinued and HERO inhibitor due to the rise in creatinine. Nephrology was consulted and also pulmonary aspiration and ICU observation. Due to rising creatinine and it was determined that the patient will benefit from dialysis. Patient was subsequent transferred out of the ICU to the floor she remained stable. We'll being consulted to assist with management of other medical conditions for this patient. This morning on my exam the patient remains lethargic but with no further encephalopathy noted. She is awaiting access for dialysis. She did complain of mild abdominal pain for which of consulted GI to further assess and also obtained a KUB. She reports no bowel movement past 2 days. Which is abnormal for her. Family is at the bedside and patient denies again any chest pain, nausea, vomiting or diarrhea. No bright red blood per rectum. * Ischemic cardiomyopathy status post PCI of SVG TO RCA: Cardiology following. Continue dual antiplatelet therapy * Abdominal pain: Likely constipation, resolved. lactulose prn and also fleet enema. no ascities noted as previously suspected, GI Consulted * Acute kidney injury on chronic kidney disease stage III likely contrast nephropathy.-improving, down to 1.9 today. Await Nephrology input, creatinine is Patient with some urine output. Nephrology following. PER Nephrology no ACEI OR ARBS on DISCHARGE. * Acute toxic Metabolic encephalopathy- Resolved CT of the brain negative. * Acute blood loss anemia- S/P 2 units packed red blood cell transfusion. Hemoglobin is stable. We'll check intermittent. No GI bleed noted. * Hypertension- Stable * Anasarca-patient was initially treated with IV Lasix and albumin this has been since discontinued. Expect improvement with dialysis. * Moderate to severe pulmonary hypertension- cardiology following. * DVT and GI prophylaxis * Plan of care discussed in detail with the patient and . We'll continue to follow. History Interval history: Patient seen and examined today, she was sitting up, and reports no further abdominal pain, she reports BM and urine output. Hospitalist Physical - Physical exam Narrative exam: VITAL SIGNS: Reviewed. GENERAL: The patient appeared well nourished and normally developed. Vital signs as documented. HEAD: No signs of head trauma. EYES: Pupils are equal. Legally bleed EARS: Hearing grossly intact. MOUTH: Oropharynx is normal. NECK: No adenopathy, no JVD. CHEST: Chest with clear breath sounds bilaterally. No wheezes, rales, or rhonchi. CARDIAC: Regular rate and rhythm. S1 and S2, without murmurs, gallops, or rubs. VASCULAR: Mild pitting edema. Peripheral pulses normal and equal in all extremities. ABDOMEN: Soft, without detectable tenderness. No sign of distention. No rebound or guarding, and no masses palpated. Bowel Sounds normal. MUSCULOSKELETAL: Good range of motion of all major joints. Extremities without clubbing, cyanosis or bilateral nonpitting edema. NEUROLOGIC EXAM: Alert and oriented x 3. No focal sensory or strength deficits. Speech normal. Follows commands. PSYCHIATRIC: Mood depressed. SKIN: Access intact with no overt drainage noted. - Constitutional Vitals: Temp Pulse Resp BP Pulse Ox 98.2 F 68 18 107/53 99 12/11/16 08:00 12/11/16 10:20 12/11/16 08:00 12/11/16 10:20 12/11/16 08:00 General appearance: Present: no acute distress Results - Labs CBC & Chem 7: 12/10/16 06:00 12/12/16 05:58 Labs: Laboratory Last Values WBC 5.8 K/mm3 (4.5-11.0) 12/10/16 06:00 RBC 3.47 M/mm3 (3.65-5.03) L 12/10/16 06:00 Hgb 9.8 gm/dl (10.1-14.3) L 12/10/16 06:00 Hct 30.4 % (30.3-42.9) 12/10/16 06:00 MCV 88 fl (79-97) 12/10/16 06:00 MCH 28 pg (28-32) 12/10/16 06:00 MCHC 32 % (30-34) 12/10/16 06:00 RDW 14.2 % (13.2-15.2) 12/10/16 06:00 Plt Count 204 K/mm3 (140-440) 12/10/16 06:00 Lymph % (Auto) 23.2 % (13.4-35.0) 12/05/16 07:54 Rogers % (Auto) Activated Sludge Operator 12/09/16 08:41 Eos % (Auto) 5.3 % (0.0-4.3) H 12/05/16 07:54 Baso % (Auto) 0.8 % (0.0-1.8) 12/05/16 07:54 Lymph # 1.1 K/mm3 (1.2-5.4) L 12/05/16 07:54 Rogers # 0.6 K/mm3 (0.0-0.8) 12/05/16 07:54 Eos # 0.2 K/mm3 (0.0-0.4) 12/05/16 07:54 Baso # 0.0 K/mm3 (0.0-0.1) 12/05/16 07:54 Add Manual Diff Complete 12/09/16 08:41 Total Counted 100 12/09/16 08:41 Seg Neutrophils % 56.9 % (40.0-70.0) 12/05/16 07:54 Seg Neuts % (Manual) 75.0 % (40.0-70.0) H 12/09/16 08:41 Band Neutrophils % 0 % 12/09/16 08:41 Lymphocytes % (Manual) 13.0 % (13.4-35.0) L 12/09/16 08:41 Reactive Lymphs % (Man) 0 % 12/09/16 08:41 Monocytes % (Manual) 8.0 % (0.0-7.3) H 12/09/16 08:41 Eosinophils % (Manual) 3.0 % (0.0-4.3) 12/09/16 08:41 Basophils % (Manual) 1.0 % (0.0-1.8) 12/09/16 08:41 Metamyelocytes % 0 % 12/09/16 08:41 Myelocytes % 0 % 12/09/16 08:41 Promyelocytes % 0 % 12/09/16 08:41 Blast Cells % 0 % 12/09/16 08:41 Nucleated RBC % Not Reportable 12/09/16 08:41 Seg Neutrophils # 2.6 K/mm3 (1.8-7.7) 12/05/16 07:54 Seg Neutrophils # Man 3.8 K/mm3 (1.8-7.7) 12/09/16 08:41 Band Neutrophils # 0.0 K/mm3 12/09/16 08:41 Lymphocytes # (Manual) 0.7 K/mm3 (1.2-5.4) L 12/09/16 08:41 Abs React Lymphs (Man) 0.0 K/mm3 12/09/16 08:41 Monocytes # (Manual) 0.4 K/mm3 (0.0-0.8) 12/09/16 08:41 Eosinophils # (Manual) 0.2 K/mm3 (0.0-0.4) 12/09/16 08:41 Basophils # (Manual) 0.1 K/mm3 (0.0-0.1) 12/09/16 08:41 Metamyelocytes # 0.0 K/mm3 12/09/16 08:41 Myelocytes # 0.0 K/mm3 12/09/16 08:41 Promyelocytes # 0.0 K/mm3 12/09/16 08:41 Blast Cells # 0.0 K/mm3 12/09/16 08:41 WBC Morphology Not Reportable 12/09/16 08:41 Hypersegmented Neuts Not Reportable 12/09/16 08:41 Hyposegmented Neuts Not Reportable 12/09/16 08:41 Hypogranular Neuts Not Reportable 12/09/16 08:41 Smudge Cells Not Reportable 12/09/16 08:41 Toxic Granulation Not Reportable 12/09/16 08:41 Toxic Vacuolation Not Reportable 12/09/16 08:41 Dohle Bodies Not Reportable 12/09/16 08:41 Pelger-Huet Anomaly Not Reportable 12/09/16 08:41 Rich Rods Not Reportable 12/09/16 08:41 Platelet Estimate Appears normal 12/09/16 08:41 Clumped Platelets Not Reportable 12/09/16 08:41 Plt Clumps, EDTA Not Reportable 12/09/16 08:41 Large Platelets Not Reportable 12/09/16 08:41 Giant Platelets Not Reportable 12/09/16 08:41 Platelet Satelliting Not Reportable 12/09/16 08:41 Plt Morphology Comment Not Reportable 12/09/16 08:41 RBC Morphology Not Reportable 12/09/16 08:41 Dimorphic RBCs Not Reportable 12/09/16 08:41 Polychromasia Not Reportable 12/09/16 08:41 Hypochromasia Not Reportable 12/09/16 08:41 Poikilocytosis Not Reportable 12/09/16 08:41 Anisocytosis 1+ 12/09/16 08:41 Microcytosis Not Reportable 12/09/16 08:41 Macrocytosis Not Reportable 12/09/16 08:41 Spherocytes Not Reportable 12/09/16 08:41 Pappenheimer Bodies Not Reportable 12/09/16 08:41 Sickle Cells Not Reportable 12/09/16 08:41 Target Cells Not Reportable 12/09/16 08:41 Tear Drop Cells Few 12/09/16 08:41 Ovalocytes Few 12/09/16 08:41 Helmet Cells Not Reportable 12/09/16 08:41 [place] Bodies Not Reportable 12/09/16 08:41 [place] Rings Not Reportable 12/09/16 08:41 Dona Cells Not Reportable 12/09/16 08:41 Bite Cells Not Reportable 12/09/16 08:41 Crenated Cell Not Reportable 12/09/16 08:41 Elliptocytes Not Reportable 12/09/16 08:41 Acanthocytes (Spur) Not Reportable 12/09/16 08:41 Rouleaux Not Reportable 12/09/16 08:41 Hemoglobin C Crystals Not Reportable 12/09/16 08:41 Schistocytes Not Reportable 12/09/16 08:41 Malaria parasites Not Reportable 12/09/16 08:41 Gabe Bodies Not Reportable 12/09/16 08:41 Hem Pathologist Commnt No 12/09/16 08:41 PT 14.5 Sec. (12.2-14.9) 11/22/16 07:20 INR 1.14 (0.87-1.13) H 11/22/16 07:20 APTT 37.7 Sec. (24.2-36.6) H 11/22/16 07:37 Activated Clotting Time 175 (74-137) H 11/22/16 14:25 POC ABG pH 7.356 (7.35-7.45) 11/25/16 22:20 POC ABG pCO2 38.1 (35-45) 11/25/16 22:20 POC ABG pO2 67 (80-105) L 11/25/16 22:20 POC ABG HCO3 21.3 11/25/16 22:20 POC ABG Total CO2 22 11/25/16 22:20 POC ABG O2 Sat 92 11/25/16 22:20 POC ABG Base Excess -4 11/25/16 22:20 FiO2 32 % 11/25/16 22:20 Sodium 139 mmol/L (137-145) 12/11/16 06:02 Potassium 4.2 mmol/L (3.6-5.0) 12/11/16 06:02 Chloride 97.0 mmol/L (98-107) L 12/11/16 06:02 Carbon Dioxide 31 mmol/L (22-30) H 12/11/16 06:02 Anion Gap 15 mmol/L 12/11/16 06:02 BUN 8 mg/dL (7-17) 12/11/16 06:02 Creatinine 2.3 mg/dL (0.7-1.2) H 12/11/16 06:02 Estimated GFR 26 ml/min 12/11/16 06:02 BUN/Creatinine Ratio 3.47 % 12/11/16 06:02 Glucose 133 mg/dL (65-100) H 12/11/16 06:02 POC Glucose 155 (70-105) H 12/10/16 21:00 Osmolality 304 Mosm/kg 12/07/16 10:49 Lactic Acid 1.00 mmol/L (0.7-2.0) 11/26/16 06:11 Uric Acid 10.3 mg/dL (3.5-7.6) H 12/07/16 08:48 Calcium 9.2 mg/dL (8.4-10.2) 12/11/16 06:02 Total Bilirubin 1.10 mg/dL (0.1-1.2) 12/10/16 06:00 AST 25 units/L (5-40) 12/10/16 06:00 ALT 25 units/L (7-56) 12/10/16 06:00 Alkaline Phosphatase 84 units/L (35-129) 12/10/16 06:00 Total Creatine Kinase 188 units/L (30-135) H 12/07/16 08:48 CK-MB (CK-2) 2.7 ng/mL (0.0-4.0) 11/23/16 06:49 CK-MB (CK-2) Rel Index 1.4 (0-4) 11/23/16 06:49 Troponin T 0.012 ng/mL (0.00-0.029) 11/23/16 06:49 C-Reactive Protein 1.20 mg/dL (0.00-1.30) 11/25/16 13:02 Serum Total Protein 6.7 g/dL (6.1-8.1) 12/07/16 10:49 Total Protein 7.9 g/dL (6.3-8.2) 12/10/16 06:00 Albumin 5.1 g/dL (3.9-5) H 12/10/16 06:00 Albumin/Globulin Ratio 1.8 % 12/10/16 06:00 Vduny-3-Yniaflhag 0.3 g/dL (0.2-0.3) 12/07/16 10:49 Rtzml-9-Bxhueajns 0.7 g/dL (0.5-0.9) 12/07/16 10:49 Beta Globulins 0.2 g/dL (0.2-0.5) 12/07/16 10:49 Gamma Globulins 0.8 g/dL (0.8-1.7) 12/07/16 10:49 Abnorm Protein Band 1 see below 12/07/16 10:49 PEP Interpretation see below 12/07/16 10:49 TSH 0.610 mlU/mL (0.270-4.200) 11/25/16 20:44 Urine Color Yellow (Yellow) 12/07/16 17:25 Urine Turbidity Slightly-cloudy (Clear) 12/07/16 17:25 Urine pH 5.0 (5.0-7.0) 12/07/16 17:25 Ur Specific [place] 1.018 (1.003-1.030) 12/07/16 17:25 Urine Protein 100 mg/dl mg/dL (Negative) 12/07/16 17:25 Urine Glucose (UA) Neg mg/dL (Negative) 12/07/16 17:25 Urine Ketones Neg mg/dL (Negative) 12/07/16 17:25 Urine Blood Neg (Negative) 12/07/16 17:25 Urine Nitrite Neg (Negative) 12/07/16 17:25 Urine Bilirubin Neg (Negative) 12/07/16 17:25 Urine Urobilinogen < 2.0 mg/dL (<2.0) 12/07/16 17:25 Ur Leukocyte Esterase Neg (Negative) 12/07/16 17:25 Urine WBC (Auto) 9.0 /HPF (0.0-6.0) H 12/07/16 17:25 Urine RBC (Auto) 1.0 /HPF (0.0-6.0) 12/07/16 17:25 U Epithel Cells (Auto) 5.0 /HPF (0-13.0) 12/07/16 17:25 Urine Bacteria (Auto) 2+ /HPF (Negative) 12/04/16 14:30 Amorphous Crystals Few 12/07/16 17:25 Hyaline Casts 22 /LPF 12/07/16 17:25 Urine Eosinophils None seen (None Seen) 12/04/16 14:30 Urine Creatinine 336.8 mg/dL (0.1-20.0) H 12/07/16 17:25 Urine Sodium 13 mEq/L 12/07/16 17:25 Urine Potassium 70.20 mEq/L 11/24/16 21:57 Urine Chloride 31.3 mEq/L (110-250) L 11/24/16 21:57 Blood Type O POSITIVE 11/28/16 15:22 Antibody Screen TNR 11/28/16 15:22 HUDSON Antibody Screen Negative 11/28/16 15:22 Crossmatch See Detail 11/28/16 15:22
--- NOTE | 2016-12-11 14:28 | Progress Note ---
Assessment and Plan Assessment: * Oliguric PATRIA secondary to contrast induced nephropathy on Stage III CKD- HD initiation 12/08 --Baseline SCr 1.4mg/dL * CAD s/p LHC w/ PCI * Cardiomyopathy - EF 40-43% * Hypertension * Anemia Plan: * Patient is s/p HD yesterday - no acute need for HD today * Reassess for HD on Monday * Transfuse pRBC per primary team * BP noted SBP in 90-100s - will decrease frequency of Nifedipine from BID to daily * Cardiology recommendations noted * Avoid potential nephrotoxins * Dose medications for renal function * Monitor for evidence of recovery * AM labs ordered Subjective Date of service: 12/11/16 Principal diagnosis: ascites Interval history: Patient requests food. Denies SOB. Feeling better. Objective - Vital Signs Vital signs: Vital Signs - 12hr 12/11/16 12/11/16 12/11/16 05:57 08:00 10:15 Temperature 98.1 F 98.2 F Pulse Rate 68 Pulse Rate [ 61 68 Left Radial] Respiratory 20 18 Rate Blood Pressure 107/53 Blood Pressure 99/54 107/53 [Left Radial Artery] O2 Sat by Pulse 100 99 Oximetry 12/11/16 12/11/16 10:20 12:00 Temperature 99.0 F Pulse Rate 68 Pulse Rate [ 67 Left Radial] Respiratory 18 Rate Blood Pressure 107/53 Blood Pressure 110/58 [Left Radial Artery] O2 Sat by Pulse 100 Oximetry - General Appearance General appearance: well-developed, well-nourished EENT: ATNC Respiratory: Present: Clear to Ascultation Cardiology: regular, S1S2 Gastrointestinal: no tenderness, no distended, obese Integumentary: no rash Musculoskeletal: other (trace edema) Psychiatric: cooperative - Lab 12/10/16 06:00 12/11/16 06:02 Most recent lab results Calcium 9.2 mg/dL (8.4-10.2) 12/11/16 06:02 Urine Creatinine 336.8 mg/dL (0.1-20.0) H 12/07/16 17:25 Urine Sodium 13 mEq/L 12/07/16 17:25
--- NOTE | 2016-12-11 15:45 | Progress Note ---
Assessment and Plan (1) Acute encephalopathy Current Visit: Yes Status: Acute Plan to address problem: - ventilation improved and can not blame on CO2 narcosis - suspect may be depression related element and may benefit from psychiatric evaluation - CT brain negative for acute process - continue qhs BIPAP for likely SDB - started effexor re: depression (2) PATRIA (acute kidney injury) Current Visit: Yes Status: Acute Plan to address problem: - element of contrast induced nephropathy - nephrology evaluation ongoing - follow I's & O's and electrolytes - tolerating dialysis well so far (3) Anemia Current Visit: Yes Status: Acute Qualifiers: Anemia type: A Iron deficiency anemia type: I Vitamin B12 deficiency anemia type: V Folate deficiency anemia type: F Bone marrow failure anemia type: B Hemolytic anemia type: H Other causes of anemia: O Chronic kidney disease stage: C Plan to address problem: - likely of chronic disease - iron studies - no acute indication for transfusion (4) CAD (coronary artery disease) of artery bypass graft Current Visit: Yes Status: Acute Qualifiers: [place] vs. 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 per horse buyer (5) Discharge planning issues Current Visit: Yes Status: Acute Plan to address problem: - to remain on telemetry; hopefully no volume overload issues down the line Subjective Date of service: 12/11/16 Principal diagnosis: ACS; PATRIA; Acute Encephalopathy Interval history: Seen and examined at bedside; 24 hour events reviewed; nursing and respiratory care staff consulted; no adverse overnight events reported to me; resting in bed ; admits to element of depression and wants to try anti-depressant; denies acute chest pains or increased SOB Objective Vital Signs - 12hr 12/11/16 12/11/16 12/11/16 05:57 08:00 10:15 Temperature 98.1 F 98.2 F Pulse Rate 68 Pulse Rate [ 61 68 Left Radial] Respiratory 20 18 Rate Blood Pressure 107/53 Blood Pressure 99/54 107/53 [Left Radial Artery] O2 Sat by Pulse 100 99 Oximetry 12/11/16 12/11/16 10:20 12:00 Temperature 99.0 F Pulse Rate 68 Pulse Rate [ 67 Left Radial] Respiratory 18 Rate Blood Pressure 107/53 Blood Pressure 110/58 [Left Radial Artery] O2 Sat by Pulse 100 Oximetry Constitutional: no acute distress, other (somnolent) Eyes: non-icteric ENT: oropharynx moist Neck: supple, no lymphadenopathy Effort: normal Ascultation: Bilateral: diminished breath sounds, rales (scant in posterior bases) Cardiovascular: regular rate and rhythm Gastrointestinal: normoactive bowel sounds, soft, non-tender, non-distended Integumentary: normal Extremities: no cyanosis, no edema, pulses normal, no ischemia or petechiae Neurologic: normal mental status, non-focal exam, pupils equal and round, motor strength normal and Psychiatric: depressed CBC and BMP: 12/17/16 07:52 12/17/16 07:52 ABG, PT/INR, D-dimer: ABG POC ABG pH 7.356 (7.35-7.45) 11/25/16 22:20 POC ABG pCO2 38.1 (35-45) 11/25/16 22:20 POC ABG pO2 67 (80-105) L 11/25/16 22:20 POC ABG HCO3 21.3 11/25/16 22:20 POC ABG Total CO2 22 11/25/16 22:20 POC ABG O2 Sat 92 11/25/16 22:20 PT/INR, D-dimer PT 14.5 Sec. (12.2-14.9) 11/22/16 07:20 INR 1.14 (0.87-1.13) H 11/22/16 07:20 Abnormal lab findings: Abnormal Labs 11/22/16 11/22/16 11/22/16 07:20 07:20 07:20 WBC RBC 3.52 L Hgb Hct Plt Count Lymph % (Auto) Stephens % (Auto) 11.5 H Eos % (Auto) Lymph # Seg Neutrophils % Seg Neuts % (Manual) Lymphocytes % (Manual) Monocytes % (Manual) Lymphocytes # (Manual) INR 1.14 H APTT Activated Clotting Time POC ABG pH POC ABG pO2 Sodium Potassium Chloride 108.0 H Carbon Dioxide BUN 25 H Creatinine 1.4 H Glucose POC Glucose Uric Acid Calcium AST ALT Total Creatine Kinase Albumin Urine WBC (Auto) Urine Creatinine Urine Chloride Crossmatch 11/22/16 11/22/16 11/22/16 07:37 10:46 13:13 WBC RBC Hgb Hct Plt Count Lymph % (Auto) Stephens % (Auto) Eos % (Auto) Lymph # Seg Neutrophils % Seg Neuts % (Manual) Lymphocytes % (Manual) Monocytes % (Manual) Lymphocytes # (Manual) INR APTT 37.7 H Activated Clotting Time 327 H 202 H POC ABG pH POC ABG pO2 Sodium Potassium Chloride Carbon Dioxide BUN Creatinine Glucose POC Glucose Uric Acid Calcium AST ALT Total Creatine Kinase Albumin Urine WBC (Auto) Urine Creatinine Urine Chloride Crossmatch 11/22/16 11/23/16 11/23/16 14:25 06:49 06:49 WBC 4.1 L RBC 2.74 L Hgb 7.7 L Hct 23.8 L D Plt Count 135 L Lymph % (Auto) Stephens % (Auto) 13.8 H Eos % (Auto) Lymph # Seg Neutrophils % Seg Neuts % (Manual) Lymphocytes % (Manual) Monocytes % (Manual) Lymphocytes # (Manual) INR APTT Activated Clotting Time 175 H POC ABG pH POC ABG pO2 Sodium Potassium Chloride Carbon Dioxide BUN 27 H Creatinine 1.8 H Glucose 137 H POC Glucose Uric Acid Calcium 8.0 L AST ALT Total Creatine Kinase 183 H Albumin Urine WBC (Auto) Urine Creatinine Urine Chloride Crossmatch 11/23/16 11/23/16 11/23/16 11:07 12:45 17:32 WBC RBC 2.98 L Hgb 8.5 L Hct 26.3 L Plt Count Lymph % (Auto) Stephens % (Auto) 13.2 H Eos % (Auto) Lymph # Seg Neutrophils % Seg Neuts % (Manual) Lymphocytes % (Manual) Monocytes % (Manual) Lymphocytes # (Manual) INR APTT Activated Clotting Time POC ABG pH POC ABG pO2 Sodium Potassium Chloride Carbon Dioxide BUN Creatinine Glucose POC Glucose 134 H 171 H Uric Acid Calcium AST ALT Total Creatine Kinase Albumin Urine WBC (Auto) Urine Creatinine Urine Chloride Crossmatch 11/23/16 11/24/16 11/24/16 21:24 05:28 05:28 WBC RBC Hgb 8.6 L Hct 26.8 L Plt Count Lymph % (Auto) Stephens % (Auto) Eos % (Auto) Lymph # Seg Neutrophils % Seg Neuts % (Manual) Lymphocytes % (Manual) Monocytes % (Manual) Lymphocytes # (Manual) INR APTT Activated Clotting Time POC ABG pH POC ABG pO2 Sodium Potassium 5.9 H D Chloride Carbon Dioxide 19 L BUN 33 H Creatinine 2.7 H Glucose 162 H POC Glucose 174 H Uric Acid Calcium AST ALT Total Creatine Kinase Albumin Urine WBC (Auto) Urine Creatinine Urine Chloride Crossmatch 11/24/16 11/24/16 11/24/16 06:23 07:05 07:09 WBC RBC Hgb Hct Plt Count Lymph % (Auto) Stephens % (Auto) Eos % (Auto) Lymph # Seg Neutrophils % Seg Neuts % (Manual) Lymphocytes % (Manual) Monocytes % (Manual) Lymphocytes # (Manual) INR APTT Activated Clotting Time POC ABG pH 7.264 L POC ABG pO2 33 L Sodium Potassium 5.8 H Chloride Carbon Dioxide 20 L BUN 33 H Creatinine 2.8 H Glucose 158 H POC Glucose 209 H Uric Acid Calcium AST 100 H ALT 118 H Total Creatine Kinase Albumin 3.5 L Urine WBC (Auto) Urine Creatinine Urine Chloride Crossmatch 11/24/16 11/24/16 11/24/16 07:19 08:50 11:45 WBC RBC Hgb Hct Plt Count Lymph % (Auto) Stephens % (Auto) Eos % (Auto) Lymph # Seg Neutrophils % Seg Neuts % (Manual) Lymphocytes % (Manual) Monocytes % (Manual) Lymphocytes # (Manual) INR APTT Activated Clotting Time POC ABG pH 7.285 L POC ABG pO2 64 L Sodium Potassium Chloride Carbon Dioxide BUN Creatinine Glucose POC Glucose 193 H 169 H Uric Acid Calcium AST ALT Total Creatine Kinase Albumin Urine WBC (Auto) Urine Creatinine Urine Chloride Crossmatch 11/24/16 11/24/16 11/24/16 15:24 15:32 17:14 WBC RBC Hgb Hct Plt Count Lymph % (Auto) Stephens % (Auto) Eos % (Auto) Lymph # Seg Neutrophils % Seg Neuts % (Manual) Lymphocytes % (Manual) Monocytes % (Manual) Lymphocytes # (Manual) INR APTT Activated Clotting Time POC ABG pH POC ABG pO2 Sodium Potassium 5.2 H Chloride Carbon Dioxide 20 L BUN 37 H Creatinine 3.0 H Glucose 144 H POC Glucose 195 H Uric Acid Calcium AST ALT Total Creatine Kinase Albumin Urine WBC (Auto) Urine Creatinine Urine Chloride Crossmatch See Detail 11/24/16 11/24/16 11/25/16 21:57 23:39 05:30 WBC RBC Hgb Hct Plt Count Lymph % (Auto) Stephens % (Auto) Eos % (Auto) Lymph # Seg Neutrophils % Seg Neuts % (Manual) Lymphocytes % (Manual) Monocytes % (Manual) Lymphocytes # (Manual) INR APTT Activated Clotting Time POC ABG pH POC ABG pO2 Sodium Potassium Chloride Carbon Dioxide BUN Creatinine Glucose POC Glucose 112 H 129 H Uric Acid Calcium AST ALT Total Creatine Kinase Albumin Urine WBC (Auto) Urine Creatinine 295.3 H Urine Chloride 31.3 L Crossmatch 11/25/16 11/25/16 11/25/16 07:00 07:00 08:40 WBC RBC 3.30 L Hgb 9.5 L Hct 29.0 L Plt Count 119 L Lymph % (Auto) Stephens % (Auto) 9.5 H Eos % (Auto) Lymph # Seg Neutrophils % 72.7 H Seg Neuts % (Manual) Lymphocytes % (Manual) Monocytes % (Manual) Lymphocytes # (Manual) INR APTT Activated Clotting Time POC ABG pH POC ABG pO2 Sodium Potassium Chloride 110.1 H Carbon Dioxide 18 L BUN 38 H Creatinine 2.6 H Glucose 123 H POC Glucose 129 H Uric Acid Calcium 8.2 L AST ALT Total Creatine Kinase Albumin Urine WBC (Auto) Urine Creatinine Urine Chloride Crossmatch 11/25/16 11/25/16 11/25/16 11:24 12:17 16:16 WBC RBC Hgb Hct Plt Count Lymph % (Auto) Stephens % (Auto) Eos % (Auto) Lymph # Seg Neutrophils % Seg Neuts % (Manual) Lymphocytes % (Manual) Monocytes % (Manual) Lymphocytes # (Manual) INR APTT Activated Clotting Time POC ABG pH 7.327 L POC ABG pO2 Sodium Potassium Chloride Carbon Dioxide BUN Creatinine Glucose POC Glucose 142 H 151 H Uric Acid Calcium AST ALT Total Creatine Kinase Albumin Urine WBC (Auto) Urine Creatinine Urine Chloride Crossmatch 11/25/16 11/25/16 11/26/16 21:48 22:20 00:58 WBC RBC 3.23 L Hgb 9.2 L Hct 27.9 L Plt Count 119 L Lymph % (Auto) 10.2 L Stephens % (Auto) 7.6 H Eos % (Auto) Lymph # 0.8 L Seg Neutrophils % 79.9 H Seg Neuts % (Manual) Lymphocytes % (Manual) Monocytes % (Manual) Lymphocytes # (Manual) INR APTT Activated Clotting Time POC ABG pH POC ABG pO2 67 L Sodium Potassium Chloride Carbon Dioxide BUN Creatinine Glucose POC Glucose 149 H Uric Acid Calcium AST ALT Total Creatine Kinase Albumin Urine WBC (Auto) Urine Creatinine Urine Chloride Crossmatch 11/26/16 11/26/16 11/26/16 06:11 07:40 11:28 WBC RBC Hgb Hct Plt Count Lymph % (Auto) [place] % (Auto) Eos % (Auto) Lymph # Seg Neutrophils % Seg Neuts % (Manual) Lymphocytes % (Manual) Monocytes % (Manual) Lymphocytes # (Manual) INR APTT Activated Clotting Time POC ABG pH POC ABG pO2 Sodium Potassium Chloride Carbon Dioxide 21 L BUN 41 H Creatinine 2.5 H Glucose 151 H POC Glucose 144 H 168 H Uric Acid Calcium 8.1 L AST ALT Total Creatine Kinase Albumin Urine WBC (Auto) Urine Creatinine Urine Chloride Crossmatch 11/26/16 11/27/16 11/27/16 15:50 00:03 03:45 WBC RBC Hgb Hct Plt Count Lymph % (Auto) Stephens % (Auto) Eos % (Auto) Lymph # Seg Neutrophils % Seg Neuts % (Manual) Lymphocytes % (Manual) Monocytes % (Manual) Lymphocytes # (Manual) INR APTT Activated Clotting Time POC ABG pH POC ABG pO2 Sodium Potassium Chloride Carbon Dioxide BUN 46 H Creatinine 2.8 H Glucose 147 H POC Glucose 153 H 183 H Uric Acid Calcium 8.1 L AST ALT Total Creatine Kinase Albumin Urine WBC (Auto) Urine Creatinine Urine Chloride Crossmatch 11/27/16 11/27/16 11/27/16 06:26 07:32 11:53 WBC RBC Hgb Hct Plt Count Lymph % (Auto) Stephens % (Auto) Eos % (Auto) Lymph # Seg Neutrophils % Seg Neuts % (Manual) Lymphocytes % (Manual) Monocytes % (Manual) Lymphocytes # (Manual) INR APTT Activated Clotting Time POC ABG pH POC ABG pO2 Sodium Potassium Chloride Carbon Dioxide BUN Creatinine Glucose POC Glucose 208 H 193 H 180 H Uric Acid Calcium AST ALT Total Creatine Kinase Albumin Urine WBC (Auto) Urine Creatinine Urine Chloride Crossmatch 11/27/16 11/27/16 11/28/16 16:42 21:51 08:13 WBC RBC Hgb Hct Plt Count Lymph % (Auto) Stephens % (Auto) Eos % (Auto) Lymph # Seg Neutrophils % Seg Neuts % (Manual) Lymphocytes % (Manual) Monocytes % (Manual) Lymphocytes # (Manual) INR APTT Activated Clotting Time POC ABG pH POC ABG pO2 Sodium Potassium Chloride Carbon Dioxide BUN Creatinine Glucose POC Glucose 161 H 167 H 151 H Uric Acid Calcium AST ALT Total Creatine Kinase Albumin Urine WBC (Auto) Urine Creatinine Urine Chloride Crossmatch 11/28/16 11/28/16 11/28/16 10:01 10:01 12:30 WBC RBC Hgb 8.5 L Hct 25.3 L Plt Count Lymph % (Auto) Stephens % (Auto) Eos % (Auto) Lymph # Seg Neutrophils % Seg Neuts % (Manual) Lymphocytes % (Manual) Monocytes % (Manual) Lymphocytes # (Manual) INR APTT Activated Clotting Time POC ABG pH POC ABG pO2 Sodium 136 L Potassium Chloride Carbon Dioxide BUN 50 H Creatinine 2.8 H Glucose 143 H POC Glucose 154 H Uric Acid Calcium 8.1 L AST ALT Total Creatine Kinase Albumin Urine WBC (Auto) Urine Creatinine Urine Chloride Crossmatch 11/28/16 11/28/16 11/28/16 15:22 16:55 20:40 WBC RBC Hgb Hct Plt Count Lymph % (Auto) Stephens % (Auto) Eos % (Auto) Lymph # Seg Neutrophils % Seg Neuts % (Manual) Lymphocytes % (Manual) Monocytes % (Manual) Lymphocytes # (Manual) INR APTT Activated Clotting Time POC ABG pH POC ABG pO2 Sodium Potassium Chloride Carbon Dioxide BUN Creatinine Glucose POC Glucose 191 H 177 H Uric Acid Calcium AST ALT Total Creatine Kinase Albumin Urine WBC (Auto) Urine Creatinine Urine Chloride Crossmatch See Detail 11/29/16 11/29/16 11/29/16 07:18 07:18 07:31 WBC RBC Hgb 9.5 L Hct 28.2 L Plt Count Lymph % (Auto) Stephens % (Auto) Eos % (Auto) Lymph # Seg Neutrophils % Seg Neuts % (Manual) Lymphocytes % (Manual) Monocytes % (Manual) Lymphocytes # (Manual) INR APTT Activated Clotting Time POC ABG pH POC ABG pO2 Sodium 136 L Potassium Chloride Carbon Dioxide BUN 51 H Creatinine 2.7 H Glucose 120 H POC Glucose 127 H Uric Acid Calcium 8.1 L AST ALT Total Creatine Kinase Albumin Urine WBC (Auto) Urine Creatinine Urine Chloride Crossmatch 11/29/16 11/29/16 11/29/16 12:49 17:35 20:31 WBC RBC Hgb Hct Plt Count Lymph % (Auto) Stephens % (Auto) Eos % (Auto) Lymph # Seg Neutrophils % Seg Neuts % (Manual) Lymphocytes % (Manual) Monocytes % (Manual) Lymphocytes # (Manual) INR APTT Activated Clotting Time POC ABG pH POC ABG pO2 Sodium Potassium Chloride Carbon Dioxide BUN Creatinine Glucose POC Glucose 213 H 179 H 154 H Uric Acid Calcium AST ALT Total Creatine Kinase Albumin Urine WBC (Auto) Urine Creatinine Urine Chloride Crossmatch 11/30/16 11/30/16 11/30/16 08:25 09:52 16:07 WBC RBC Hgb Hct Plt Count Lymph % (Auto) Stephens % (Auto) Eos % (Auto) Lymph # Seg Neutrophils % Seg Neuts % (Manual) Lymphocytes % (Manual) Monocytes % (Manual) Lymphocytes # (Manual) INR APTT Activated Clotting Time POC ABG pH POC ABG pO2 Sodium Potassium Chloride Carbon Dioxide BUN 52 H Creatinine 3.0 H Glucose 156 H POC Glucose 127 H 216 H Uric Acid Calcium AST ALT Total Creatine Kinase Albumin Urine WBC (Auto) Urine Creatinine Urine Chloride Crossmatch 11/30/16 12/01/16 12/01/16 20:45 08:34 08:48 WBC RBC Hgb Hct Plt Count Lymph % (Auto) Stephens % (Auto) Eos % (Auto) Lymph # Seg Neutrophils % Seg Neuts % (Manual) Lymphocytes % (Manual) Monocytes % (Manual) Lymphocytes # (Manual) INR APTT Activated Clotting Time POC ABG pH POC ABG pO2 Sodium 136 L Potassium Chloride Carbon Dioxide BUN 50 H Creatinine 3.0 H Glucose 124 H POC Glucose 197 H 136 H Uric Acid Calcium AST ALT Total Creatine Kinase Albumin Urine WBC (Auto) Urine Creatinine Urine Chloride Crossmatch 12/01/16 12/01/16 12/01/16 11:35 16:56 22:08 WBC RBC Hgb Hct Plt Count Lymph % (Auto) Stephens % (Auto) Eos % (Auto) Lymph # Seg Neutrophils % Seg Neuts % (Manual) Lymphocytes % (Manual) Monocytes % (Manual) Lymphocytes # (Manual) INR APTT Activated Clotting Time POC ABG pH POC ABG pO2 Sodium Potassium Chloride Carbon Dioxide BUN Creatinine Glucose POC Glucose 205 H 210 H 157 H Uric Acid Calcium AST ALT Total Creatine Kinase Albumin Urine WBC (Auto) Urine Creatinine Urine Chloride Crossmatch 12/02/16 12/02/16 12/02/16 05:52 08:47 15:16 WBC RBC Hgb Hct Plt Count Lymph % (Auto) Stephens % (Auto) Eos % (Auto) Lymph # Seg Neutrophils % Seg Neuts % (Manual) Lymphocytes % (Manual) Monocytes % (Manual) Lymphocytes # (Manual) INR APTT Activated Clotting Time POC ABG pH POC ABG pO2 Sodium Potassium Chloride Carbon Dioxide BUN 48 H Creatinine 2.7 H Glucose 136 H POC Glucose 134 H 226 H Uric Acid Calcium AST ALT Total Creatine Kinase Albumin Urine WBC (Auto) Urine Creatinine Urine Chloride Crossmatch 12/02/16 12/03/16 12/03/16 22:53 05:58 05:58 WBC 4.2 L RBC 3.37 L Hgb 9.7 L Hct 29.4 L Plt Count Lymph % (Auto) Stephens % (Auto) Eos % (Auto) Lymph # Seg Neutrophils % Seg Neuts % (Manual) Lymphocytes % (Manual) Monocytes % (Manual) Lymphocytes # (Manual) INR APTT Activated Clotting Time POC ABG pH POC ABG pO2 Sodium Potassium Chloride Carbon Dioxide BUN 47 H Creatinine 2.7 H Glucose 142 H POC Glucose 235 H Uric Acid Calcium AST ALT Total Creatine Kinase Albumin Urine WBC (Auto) Urine Creatinine Urine Chloride Crossmatch 12/03/16 12/03/16 12/03/16 13:04 16:47 21:50 WBC RBC Hgb Hct Plt Count Lymph % (Auto) Stephens % (Auto) Eos % (Auto) Lymph # Seg Neutrophils % Seg Neuts % (Manual) Lymphocytes % (Manual) Monocytes % (Manual) Lymphocytes # (Manual) INR APTT Activated Clotting Time POC ABG pH POC ABG pO2 Sodium Potassium Chloride Carbon Dioxide BUN Creatinine Glucose POC Glucose 135 H 140 H 170 H Uric Acid Calcium AST ALT Total Creatine Kinase Albumin Urine WBC (Auto) Urine Creatinine Urine Chloride Crossmatch 12/04/16 12/04/16 12/04/16 07:26 12:21 16:43 WBC RBC Hgb Hct Plt Count Lymph % (Auto) Stephens % (Auto) Eos % (Auto) Lymph # Seg Neutrophils % Seg Neuts % (Manual) Lymphocytes % (Manual) Monocytes % (Manual) Lymphocytes # (Manual) INR APTT Activated Clotting Time POC ABG pH POC ABG pO2 Sodium Potassium Chloride Carbon Dioxide BUN Creatinine Glucose POC Glucose 145 H 203 H 210 H Uric Acid Calcium AST ALT Total Creatine Kinase Albumin Urine WBC (Auto) Urine Creatinine Urine Chloride Crossmatch 12/04/16 12/05/16 12/05/16 21:41 07:54 07:54 WBC RBC 3.10 L Hgb 9.0 L Hct 26.9 L Plt Count Lymph % (Auto) Stephens % (Auto) 13.8 H Eos % (Auto) 5.3 H Lymph # 1.1 L Seg Neutrophils % Seg Neuts % (Manual) Lymphocytes % (Manual) Monocytes % (Manual) Lymphocytes # (Manual) INR APTT Activated Clotting Time POC ABG pH POC ABG pO2 Sodium Potassium Chloride Carbon Dioxide BUN 51 H Creatinine 3.7 H Glucose 132 H POC Glucose 211 H Uric Acid Calcium AST ALT Total Creatine Kinase Albumin Urine WBC (Auto) Urine Creatinine Urine Chloride Crossmatch 12/05/16 12/05/16 12/05/16 08:30 11:46 22:02 WBC RBC Hgb Hct Plt Count Lymph % (Auto) Stephens % (Auto) Eos % (Auto) Lymph # Seg Neutrophils % Seg Neuts % (Manual) Lymphocytes % (Manual) Monocytes % (Manual) Lymphocytes # (Manual) INR APTT Activated Clotting Time POC ABG pH POC ABG pO2 Sodium Potassium Chloride Carbon Dioxide BUN Creatinine Glucose POC Glucose 140 H 225 H 165 H Uric Acid Calcium AST ALT Total Creatine Kinase Albumin Urine WBC (Auto) Urine Creatinine Urine Chloride Crossmatch 12/06/16 12/06/16 12/06/16 08:17 09:10 09:10 WBC RBC Hgb Hct Plt Count Lymph % (Auto) Stephens % (Auto) Eos % (Auto) Lymph # Seg Neutrophils % Seg Neuts % (Manual) Lymphocytes % (Manual) Monocytes % (Manual) Lymphocytes # (Manual) INR APTT Activated Clotting Time POC ABG pH POC ABG pO2 Sodium Potassium Chloride 97.6 L Carbon Dioxide BUN 50 H Creatinine 3.8 H Glucose 126 H POC Glucose 166 H Uric Acid 10.0 H Calcium AST ALT Total Creatine Kinase Albumin Urine WBC (Auto) Urine Creatinine Urine Chloride Crossmatch 12/06/16 12/06/16 12/06/16 12:18 17:39 22:31 WBC RBC Hgb Hct Plt Count Lymph % (Auto) Stephens % (Auto) Eos % (Auto) Lymph # Seg Neutrophils % Seg Neuts % (Manual) Lymphocytes % (Manual) Monocytes % (Manual) Lymphocytes # (Manual) INR APTT Activated Clotting Time POC ABG pH POC ABG pO2 Sodium Potassium Chloride Carbon Dioxide BUN Creatinine Glucose POC Glucose 188 H 176 H 157 H Uric Acid Calcium AST ALT Total Creatine Kinase Albumin Urine WBC (Auto) Urine Creatinine Urine Chloride Crossmatch 12/07/16 12/07/16 12/07/16 08:48 08:49 09:01 WBC RBC Hgb Hct Plt Count Lymph % (Auto) Stephens % (Auto) Eos % (Auto) Lymph # Seg Neutrophils % Seg Neuts % (Manual) Lymphocytes % (Manual) Monocytes % (Manual) Lymphocytes # (Manual) INR APTT Activated Clotting Time POC ABG pH POC ABG pO2 Sodium Potassium Chloride 97.9 L Carbon Dioxide BUN 52 H Creatinine 4.2 H Glucose 105 H POC Glucose 107 H Uric Acid 10.3 H Calcium AST ALT Total Creatine Kinase 188 H Albumin Urine WBC (Auto) Urine Creatinine Urine Chloride Crossmatch 12/07/16 12/07/16 12/07/16 12:27 16:59 17:25 WBC RBC Hgb Hct Plt Count Lymph % (Auto) Stephens % (Auto) Eos % (Auto) Lymph # Seg Neutrophils % Seg Neuts % (Manual) Lymphocytes % (Manual) Monocytes % (Manual) Lymphocytes # (Manual) INR APTT Activated Clotting Time POC ABG pH POC ABG pO2 Sodium Potassium Chloride Carbon Dioxide BUN Creatinine Glucose POC Glucose 163 H 124 H Uric Acid Calcium AST ALT Total Creatine Kinase Albumin Urine WBC (Auto) 9.0 H Urine Creatinine Urine Chloride Crossmatch 12/07/16 12/07/16 12/08/16 17:25 22:04 07:53 WBC RBC Hgb Hct Plt Count Lymph % (Auto) Stephens % (Auto) Eos % (Auto) Lymph # Seg Neutrophils % Seg Neuts % (Manual) Lymphocytes % (Manual) Monocytes % (Manual) Lymphocytes # (Manual) INR APTT Activated Clotting Time POC ABG pH POC ABG pO2 Sodium Potassium Chloride Carbon Dioxide BUN Creatinine Glucose POC Glucose 133 H 168 H Uric Acid Calcium AST ALT Total Creatine Kinase Albumin Urine WBC (Auto) Urine Creatinine 336.8 H Urine Chloride Crossmatch 12/08/16 12/08/16 12/08/16 08:05 12:17 22:09 WBC RBC Hgb Hct Plt Count Lymph % (Auto) Stephens % (Auto) Eos % (Auto) Lymph # Seg Neutrophils % Seg Neuts % (Manual) Lymphocytes % (Manual) Monocytes % (Manual) Lymphocytes # (Manual) INR APTT Activated Clotting Time POC ABG pH POC ABG pO2 Sodium Potassium Chloride Carbon Dioxide BUN 55 H Creatinine 5.0 H Glucose 142 H POC Glucose 140 H 154 H Uric Acid Calcium AST ALT Total Creatine Kinase Albumin Urine WBC (Auto) Urine Creatinine Urine Chloride Crossmatch 12/09/16 12/09/16 12/09/16 06:40 07:47 08:41 WBC RBC 3.09 L Hgb 8.8 L Hct 27.0 L Plt Count Lymph % (Auto) Stephens % (Auto) Eos % (Auto) Lymph # Seg Neutrophils % Seg Neuts % (Manual) 75.0 H Lymphocytes % (Manual) 13.0 L Monocytes % (Manual) 8.0 H Lymphocytes # (Manual) 0.7 L INR APTT Activated Clotting Time POC ABG pH POC ABG pO2 Sodium Potassium Chloride Carbon Dioxide BUN 23 H Creatinine 3.1 H Glucose 108 H POC Glucose 115 H Uric Acid Calcium AST ALT Total Creatine Kinase Albumin Urine WBC (Auto) Urine Creatinine Urine Chloride Crossmatch 12/09/16 12/09/16 12/09/16 08:41 12:26 22:19 WBC RBC Hgb Hct Plt Count Lymph % (Auto) Stephens % (Auto) Eos % (Auto) Lymph # Seg Neutrophils % Seg Neuts % (Manual) Lymphocytes % (Manual) Monocytes % (Manual) Lymphocytes # (Manual) INR APTT Activated Clotting Time POC ABG pH POC ABG pO2 Sodium Potassium Chloride Carbon Dioxide BUN 23 H Creatinine 3.0 H Glucose 108 H POC Glucose 140 H 139 H Uric Acid Calcium AST ALT Total Creatine Kinase Albumin Urine WBC (Auto) Urine Creatinine Urine Chloride Crossmatch 12/10/16 12/10/16 12/10/16 06:00 06:00 06:00 WBC RBC 3.47 L Hgb 9.8 L Hct Plt Count Lymph % (Auto) Stephens % (Auto) Eos % (Auto) Lymph # Seg Neutrophils % Seg Neuts % (Manual) Lymphocytes % (Manual) Monocytes % (Manual) Lymphocytes # (Manual) INR APTT Activated Clotting Time POC ABG pH POC ABG pO2 Sodium Potassium Chloride Carbon Dioxide BUN Creatinine 1.9 H 1.9 H Glucose 120 H 120 H POC Glucose Uric Acid Calcium AST ALT Total Creatine Kinase Albumin 5.1 H Urine WBC (Auto) Urine Creatinine Urine Chloride Crossmatch 12/10/16 12/10/16 12/11/16 08:34 21:00 06:02 WBC RBC Hgb Hct Plt Count Lymph % (Auto) Stephens % (Auto) Eos % (Auto) Lymph # Seg Neutrophils % Seg Neuts % (Manual) Lymphocytes % (Manual) Monocytes % (Manual) Lymphocytes # (Manual) INR APTT Activated Clotting Time POC ABG pH POC ABG pO2 Sodium Potassium Chloride 97.0 L Carbon Dioxide 31 H BUN Creatinine 2.3 H Glucose 133 H POC Glucose 137 H 155 H Uric Acid Calcium AST ALT Total Creatine Kinase Albumin Urine WBC (Auto) Urine Creatinine Urine Chloride Crossmatch
--- NOTE | 2016-12-11 16:37 | XRay Report ---
FINAL REPORT PROCEDURE: Chest. TECHNIQUE: Portable AP view. HISTORY: Shortness of breath, pulmonary edema. COMPARISON: No prior studies are available for comparison. FINDINGS: The heart size is borderline. The lungs are clear and well expanded. There are no pleural effusions. There is a right internal jugular venous dialysis type catheter that terminates in the right atrium. The soft tissues are unremarkable. Median sternotomy wires are present. IMPRESSION: No evidence of acute disease.
[2016-12-11] MEDS: ZOFRAN ODT PO PRN ×2 (17:56→21:21)
[2016-12-11] MEDS: EFFEXOR XR PO SCH (17:56)
[2016-12-11] MEDS ORDERED: PHENERGAN PO PRN (23:52)
[2016-12-12 07:23] LABS: BUN/Creatinine Ratio 3.14; Calcium 9.2 mg/dL (8.4-10.2); Chloride 98.1 mmol/L (98-107); Potassium 4.3 mmol/L (3.6-5.0)
--- NOTE | 2016-12-12 08:26 | Progress Note ---
Assessment and Plan Assessment: * Oliguric PATRIA secondary to contrast induced nephropathy on Stage III CKD- HD initiation 12/08 --Baseline SCr 1.4mg/dL * CAD s/p LHC w/ PCI * Cardiomyopathy - EF 40-43% * Hypertension * Anemia Plan: * No evidence of renal recovery - SCr increasing between HD treatments. ?UOP not documented * Patient last dialyzed on Monday. No indication for HD today - will plan for dialysis tomorrow - continue TTS schedule * Transfuse pRBC per primary team * Cardiology recommendations noted * Avoid potential nephrotoxins * Dose medications for renal function * Monitor for evidence of recovery * AM labs ordered * Strict I/O - discussed with RN at bedside Subjective Date of service: 12/12/16 Principal diagnosis: ascites Interval history: Per RN, patient with vomiting overnight. Patient reports that she is making "a little urine" Objective - Vital Signs Vital signs: Vital Signs - 12hr 12/11/16 12/11/16 12/11/16 21:04 21:26 22:00 Temperature 99.2 F Pulse Rate 70 Pulse Rate [ 70 Left Radial] Respiratory 20 Rate Blood Pressure 124/60 Blood Pressure 121/58 [Left Radial Artery] O2 Sat by Pulse 100 94 Oximetry 12/12/16 12/12/16 12/12/16 00:32 01:56 06:00 Temperature 98.3 F Pulse Rate 60 70 Pulse Rate [ 68 Left Radial] Respiratory 20 Rate Blood Pressure Blood Pressure 115/57 [Left Radial Artery] O2 Sat by Pulse 95 Oximetry 12/12/16 06:41 Temperature 98.5 F Pulse Rate Pulse Rate [ 67 Left Radial] Respiratory 20 Rate Blood Pressure Blood Pressure 124/60 [Left Radial Artery] O2 Sat by Pulse 95 Oximetry - General Appearance General appearance: well-developed, well-nourished EENT: ATNC Respiratory: Present: Clear to Ascultation Cardiology: regular, S1S2 Gastrointestinal: no tenderness, obese Integumentary: no rash Musculoskeletal: other (no edema) Psychiatric: cooperative - Lab 12/10/16 06:00 12/12/16 05:58 Most recent lab results Calcium 9.2 mg/dL (8.4-10.2) 12/12/16 05:58 Urine Creatinine 336.8 mg/dL (0.1-20.0) H 12/07/16 17:25 Urine Sodium 13 mEq/L 12/07/16 17:25
[2016-12-12] MEDS: HEPARIN SUB-Q SCH ×2 (09:09→22:35)
[2016-12-12] MEDS: PROCARDIA XL PO SCH (09:14)
[2016-12-12] MEDS: EFFEXOR XR PO SCH (09:15)
[2016-12-12] MEDS: COREG PO SCH ×2 (09:15→22:34)
[2016-12-12] MEDS: IMDUR PO SCH (09:15)
[2016-12-12] MEDS: PROTONIX PO SCH (09:15)
[2016-12-12] MEDS: PLAVIX PO SCH (09:15)
[2016-12-12] MEDS: ECOTRIN PO SCH (09:15)
[2016-12-12] MEDS ORDERED: NACL 0.9% 100 ML IV PRN (09:48)
--- NOTE | 2016-12-12 10:38 | Progress Note ---
Assessment and Plan Altered mental status -resolved Head CT shows no acute intracranial process Volume overload Hyperkalemia -resolved Coronary artery disease with prior CABG Right and LHC findings: moderate to severe elevated left and right heart filling pressures; moderate to severe pulmonary HTN 3 vessel disease ESTRADA to LAD patent SVG x 2 occluded (Diag and OM) subtotal occlusion of proximal segment of SVG to RCA treated with a drug eluting stent EF 40-45% Acute renal failure secondary to contrast nephropathy initiated on dialysis Acute drop in H&H s/p blood transfusion Ischemic Cardiomyopathy Hypertension Deconditioning Continue medical therapy for coronary artery disease, including dual oral antiplatelet therapy for recent coronary stent. Subjective Date of service: 12/12/16 Principal diagnosis: ascites Interval history: Patient has no chest pain or shortness of breath. Objective Vital Signs Temp Pulse Pulse Resp BP BP Pulse Ox 12/12/16 09:56 100 12/12/16 09:54 98.8 F 68 16 147/71 95 12/12/16 09:15 67 140/67 12/12/16 06:41 98.5 F 67 20 124/60 95 12/12/16 06:00 70 12/12/16 01:56 98.3 F 68 20 115/57 95 12/12/16 00:32 60 12/11/16 22:00 94 12/11/16 21:26 70 124/60 12/11/16 21:04 99.2 F 70 20 121/58 100 12/11/16 18:25 98.7 F 67 18 117/56 100 12/11/16 17:00 65 12/11/16 12:00 99.0 F 67 18 110/58 100 - Physical Examination General: No Apparent Distress HEENT: Positive: PERRL Neck: Positive: trachea midline Cardiac: Positive: Reg Rate and Rhythm Neuro: Positive: Grossly Intact, Weakness Abdomen: Positive: Distended Extremities: Present: +1 Edema - Labs and Meds Comprehensive Metabolic Panel 12/12/16 Range/Units 05:58 Sodium 139 (137-145) mmol/L Potassium 4.3 (3.6-5.0) mmol/L Chloride 98.1 (98-107) mmol/L Carbon Dioxide 26 (22-30) mmol/L BUN 11 (7-17) mg/dL Creatinine 3.5 H D (0.7-1.2) mg/dL Glucose 127 H (65-100) mg/dL Calcium 9.2 (8.4-10.2) mg/dL
[2016-12-12] MEDS: ZOFRAN IV PRN ×2 (11:57→17:15)
--- NOTE | 2016-12-12 17:08 | Progress Note ---
Assessment and Plan Assessment and plan: Patient is a 56-year-old female with past medical history of CKD with baseline creatnine of 1.8, hyperlipidemia, hypertension CAD and also congestive heart failure with ejection fraction of 40-50% in 2013 and also ischemic cardiomyopathy. Presented for an outpatient cardiac catheterization chest without PCI of SVG to RCA with 99% to 0% with 3.0 mm DE stent. Patient was kept overnight in the hospital to monitor creatinine before discharge. Repeat labs in the morning did reveal an increase in creatinine around 2.7. Patient was also lethargic with altered sensorium and was placed in the ICU for close observation. She was also on nitro drip but with no fever blood pressure was adequately controlled. Subsequently the Lasix was discontinued and HERO inhibitor due to the rise in creatinine. Nephrology was consulted and also pulmonary aspiration and ICU observation. Due to rising creatinine and it was determined that the patient will benefit from dialysis. Patient was subsequent transferred out of the ICU to the floor she remained stable. We'll being consulted to assist with management of other medical conditions for this patient. This morning on my exam the patient remains lethargic but with no further encephalopathy noted. She is awaiting access for dialysis. She did complain of mild abdominal pain for which of consulted GI to further assess and also obtained a KUB. She reports no bowel movement past 2 days. Which is abnormal for her. Family is at the bedside and patient denies again any chest pain, nausea, vomiting or diarrhea. No bright red blood per rectum. * Ischemic cardiomyopathy status post PCI of SVG TO RCA: Cardiology following. Continue dual antiplatelet therapy * Abdominal pain: Resolved. Likely constipation, lactulose prn and also fleet enema. no ascities noted as previously suspected, GI Consulted * Acute kidney injury on chronic kidney disease stage III likely contrast nephropathy.-Creatinine 1 back up to 3 with no clear evidence of renal recovery. Still a little uric, Nephrology following. PER Nephrology no ACEI OR ARBS on DISCHARGE. * Acute toxic Metabolic encephalopathy- Resolved CT of the brain negative. * Acute blood loss anemia- S/P 2 units packed red blood cell transfusion. Hemoglobin is stable. We'll check intermittent. No GI bleed noted. * Hypertension- Stable * Dialysis planned for tomorrow. We'll check a.m. labs. * Anasarca-improved. Patient was initially treated with IV Lasix and albumin this has been since discontinued. Expect improvement with dialysis. * Moderate to severe pulmonary hypertension- cardiology following. * DVT and GI prophylaxis * Plan of care discussed in detail with the patient and . We'll continue to follow. History Interval history: Patient seen and examined today, plus nausea with vomiting yesterday. This has since resolved. Continues to have BM but very little urine output. No other adverse events reported by nursing staff Hospitalist Physical - Physical exam Narrative exam: VITAL SIGNS: Reviewed. GENERAL: The patient appeared well nourished and normally developed. Vital signs as documented. HEAD: No signs of head trauma. EYES: Pupils are equal. Legally bleed EARS: Hearing grossly intact. MOUTH: Oropharynx is normal. NECK: No adenopathy, no JVD. CHEST: Chest with clear breath sounds bilaterally. No wheezes, rales, or rhonchi. CARDIAC: Regular rate and rhythm. S1 and S2, without murmurs, gallops, or rubs. VASCULAR: No edema. Peripheral pulses normal and equal in all extremities. ABDOMEN: Soft, without detectable tenderness. No sign of distention. No rebound or guarding, and no masses palpated. Bowel Sounds normal. MUSCULOSKELETAL: Good range of motion of all major joints. Extremities without clubbing, cyanosis, no edema. NEUROLOGIC EXAM: Alert and oriented x 3. No focal sensory or strength deficits. Speech normal. Follows commands. PSYCHIATRIC: Mood depressed. SKIN: Access intact with no overt drainage noted. - Constitutional Vitals: Temp Pulse Resp BP Pulse Ox 98.2 F 65 18 138/65 94 12/12/16 13:49 12/12/16 13:49 12/12/16 13:49 12/12/16 13:49 12/12/16 13:49 General appearance: Present: no acute distress Results - Labs CBC & Chem 7: 12/10/16 06:00 12/12/16 05:58 Labs: Laboratory Last Values WBC 5.8 K/mm3 (4.5-11.0) 12/10/16 06:00 RBC 3.47 M/mm3 (3.65-5.03) L 12/10/16 06:00 Hgb 9.8 gm/dl (10.1-14.3) L 12/10/16 06:00 Hct 30.4 % (30.3-42.9) 12/10/16 06:00 MCV 88 fl (79-97) 12/10/16 06:00 MCH 28 pg (28-32) 12/10/16 06:00 MCHC 32 % (30-34) 12/10/16 06:00 RDW 14.2 % (13.2-15.2) 12/10/16 06:00 Plt Count 204 K/mm3 (140-440) 12/10/16 06:00 Lymph % (Auto) 23.2 % (13.4-35.0) 12/05/16 07:54 [place] % (Auto) [place] Tender 12/09/16 08:41 Eos % (Auto) 5.3 % (0.0-4.3) H 12/05/16 07:54 Baso % (Auto) 0.8 % (0.0-1.8) 12/05/16 07:54 Lymph # 1.1 K/mm3 (1.2-5.4) L 12/05/16 07:54 [place] # 0.6 K/mm3 (0.0-0.8) 12/05/16 07:54 Eos # 0.2 K/mm3 (0.0-0.4) 12/05/16 07:54 Baso # 0.0 K/mm3 (0.0-0.1) 12/05/16 07:54 Add Manual Diff Complete 12/09/16 08:41 Total Counted 100 12/09/16 08:41 Seg Neutrophils % 56.9 % (40.0-70.0) 12/05/16 07:54 Seg Neuts % (Manual) 75.0 % (40.0-70.0) H 12/09/16 08:41 Band Neutrophils % 0 % 12/09/16 08:41 Lymphocytes % (Manual) 13.0 % (13.4-35.0) L 12/09/16 08:41 Reactive Lymphs % (Man) 0 % 12/09/16 08:41 Monocytes % (Manual) 8.0 % (0.0-7.3) H 12/09/16 08:41 Eosinophils % (Manual) 3.0 % (0.0-4.3) 12/09/16 08:41 Basophils % (Manual) 1.0 % (0.0-1.8) 12/09/16 08:41 Metamyelocytes % 0 % 12/09/16 08:41 Myelocytes % 0 % 12/09/16 08:41 Promyelocytes % 0 % 12/09/16 08:41 Blast Cells % 0 % 12/09/16 08:41 Nucleated RBC % Not Reportable 12/09/16 08:41 Seg Neutrophils # 2.6 K/mm3 (1.8-7.7) 12/05/16 07:54 Seg Neutrophils # Man 3.8 K/mm3 (1.8-7.7) 12/09/16 08:41 Band Neutrophils # 0.0 K/mm3 12/09/16 08:41 Lymphocytes # (Manual) 0.7 K/mm3 (1.2-5.4) L 12/09/16 08:41 Abs React Lymphs (Man) 0.0 K/mm3 12/09/16 08:41 Monocytes # (Manual) 0.4 K/mm3 (0.0-0.8) 12/09/16 08:41 Eosinophils # (Manual) 0.2 K/mm3 (0.0-0.4) 12/09/16 08:41 Basophils # (Manual) 0.1 K/mm3 (0.0-0.1) 12/09/16 08:41 Metamyelocytes # 0.0 K/mm3 12/09/16 08:41 Myelocytes # 0.0 K/mm3 12/09/16 08:41 Promyelocytes # 0.0 K/mm3 12/09/16 08:41 Blast Cells # 0.0 K/mm3 12/09/16 08:41 WBC Morphology Not Reportable 12/09/16 08:41 Hypersegmented Neuts Not Reportable 12/09/16 08:41 Hyposegmented Neuts Not Reportable 12/09/16 08:41 Hypogranular Neuts Not Reportable 12/09/16 08:41 Smudge Cells Not Reportable 12/09/16 08:41 Toxic Granulation Not Reportable 12/09/16 08:41 Toxic Vacuolation Not Reportable 12/09/16 08:41 Dohle Bodies Not Reportable 12/09/16 08:41 Pelger-Huet Anomaly Not Reportable 12/09/16 08:41 Rich Rods Not Reportable 12/09/16 08:41 Platelet Estimate Appears normal 12/09/16 08:41 Clumped Platelets Not Reportable 12/09/16 08:41 Plt Clumps, EDTA Not Reportable 12/09/16 08:41 Large Platelets Not Reportable 12/09/16 08:41 Giant Platelets Not Reportable 12/09/16 08:41 Platelet Satelliting Not Reportable 12/09/16 08:41 Plt Morphology Comment Not Reportable 12/09/16 08:41 RBC Morphology Not Reportable 12/09/16 08:41 Dimorphic RBCs Not Reportable 12/09/16 08:41 Polychromasia Not Reportable 12/09/16 08:41 Hypochromasia Not Reportable 12/09/16 08:41 Poikilocytosis Not Reportable 12/09/16 08:41 Anisocytosis 1+ 12/09/16 08:41 Microcytosis Not Reportable 12/09/16 08:41 Macrocytosis Not Reportable 12/09/16 08:41 Spherocytes Not Reportable 12/09/16 08:41 Pappenheimer Bodies Not Reportable 12/09/16 08:41 Sickle Cells Not Reportable 12/09/16 08:41 Target Cells Not Reportable 12/09/16 08:41 Tear Drop Cells Few 12/09/16 08:41 Ovalocytes Few 12/09/16 08:41 Helmet Cells Not Reportable 12/09/16 08:41 Beltran-Pepin Bodies Not Reportable 12/09/16 08:41 [place] Rings Not Reportable 12/09/16 08:41 Dona Cells Not Reportable 12/09/16 08:41 Bite Cells Not Reportable 12/09/16 08:41 Crenated Cell Not Reportable 12/09/16 08:41 Elliptocytes Not Reportable 12/09/16 08:41 Acanthocytes (Spur) Not Reportable 12/09/16 08:41 Rouleaux Not Reportable 12/09/16 08:41 Hemoglobin C Crystals Not Reportable 12/09/16 08:41 Schistocytes Not Reportable 12/09/16 08:41 Malaria parasites Not Reportable 12/09/16 08:41 Gabe Bodies Not Reportable 12/09/16 08:41 Hem Pathologist Commnt No 12/09/16 08:41 PT 14.5 Sec. (12.2-14.9) 11/22/16 07:20 INR 1.14 (0.87-1.13) H 11/22/16 07:20 APTT 37.7 Sec. (24.2-36.6) H 11/22/16 07:37 Activated Clotting Time 175 (74-137) H 11/22/16 14:25 POC ABG pH 7.356 (7.35-7.45) 11/25/16 22:20 POC ABG pCO2 38.1 (35-45) 11/25/16 22:20 POC ABG pO2 67 (80-105) L 11/25/16 22:20 POC ABG HCO3 21.3 11/25/16 22:20 POC ABG Total CO2 22 11/25/16 22:20 POC ABG O2 Sat 92 11/25/16 22:20 POC ABG Base Excess -4 11/25/16 22:20 FiO2 32 % 11/25/16 22:20 Sodium 139 mmol/L (137-145) 12/12/16 05:58 Potassium 4.3 mmol/L (3.6-5.0) 12/12/16 05:58 Chloride 98.1 mmol/L (98-107) 12/12/16 05:58 Carbon Dioxide 26 mmol/L (22-30) 12/12/16 05:58 Anion Gap 19 mmol/L 12/12/16 05:58 BUN 11 mg/dL (7-17) 12/12/16 05:58 Creatinine 3.5 mg/dL (0.7-1.2) H D 12/12/16 05:58 Estimated GFR 16 ml/min 12/12/16 05:58 BUN/Creatinine Ratio 3.14 % 12/12/16 05:58 Glucose 127 mg/dL (65-100) H 12/12/16 05:58 POC Glucose 167 (70-105) H 12/12/16 15:55 Osmolality 304 Mosm/kg 12/07/16 10:49 Lactic Acid 1.00 mmol/L (0.7-2.0) 11/26/16 06:11 Uric Acid 10.3 mg/dL (3.5-7.6) H 12/07/16 08:48 Calcium 9.2 mg/dL (8.4-10.2) 12/12/16 05:58 Total Bilirubin 1.10 mg/dL (0.1-1.2) 12/10/16 06:00 AST 25 units/L (5-40) 12/10/16 06:00 ALT 25 units/L (7-56) 12/10/16 06:00 Alkaline Phosphatase 84 units/L (35-129) 12/10/16 06:00 Total Creatine Kinase 188 units/L (30-135) H 12/07/16 08:48 CK-MB (CK-2) 2.7 ng/mL (0.0-4.0) 11/23/16 06:49 CK-MB (CK-2) Rel Index 1.4 (0-4) 11/23/16 06:49 Troponin T 0.012 ng/mL (0.00-0.029) 11/23/16 06:49 C-Reactive Protein 1.20 mg/dL (0.00-1.30) 11/25/16 13:02 Serum Total Protein 6.7 g/dL (6.1-8.1) 12/07/16 10:49 Total Protein 7.9 g/dL (6.3-8.2) 12/10/16 06:00 Albumin 5.1 g/dL (3.9-5) H 12/10/16 06:00 Albumin/Globulin Ratio 1.8 % 12/10/16 06:00 Crkfe-5-Izzuqkyde 0.3 g/dL (0.2-0.3) 12/07/16 10:49 Gjpqv-2-Mttydswhw 0.7 g/dL (0.5-0.9) 12/07/16 10:49 Beta Globulins 0.2 g/dL (0.2-0.5) 12/07/16 10:49 Gamma Globulins 0.8 g/dL (0.8-1.7) 12/07/16 10:49 Abnorm Protein Band 1 see below 12/07/16 10:49 PEP Interpretation see below 12/07/16 10:49 TSH 0.610 mlU/mL (0.270-4.200) 11/25/16 20:44 Urine Color Yellow (Yellow) 12/07/16 17:25 Urine Turbidity Slightly-cloudy (Clear) 12/07/16 17:25 Urine pH 5.0 (5.0-7.0) 12/07/16 17:25 Ur Specific [place] 1.018 (1.003-1.030) 12/07/16 17:25 Urine Protein 100 mg/dl mg/dL (Negative) 12/07/16 17:25 Urine Glucose (UA) Neg mg/dL (Negative) 12/07/16 17:25 Urine Ketones Neg mg/dL (Negative) 12/07/16 17:25 Urine Blood Neg (Negative) 12/07/16 17:25 Urine Nitrite Neg (Negative) 12/07/16 17:25 Urine Bilirubin Neg (Negative) 12/07/16 17:25 Urine Urobilinogen < 2.0 mg/dL (<2.0) 12/07/16 17:25 Ur Leukocyte Esterase Neg (Negative) 12/07/16 17:25 Urine WBC (Auto) 9.0 /HPF (0.0-6.0) H 12/07/16 17:25 Urine RBC (Auto) 1.0 /HPF (0.0-6.0) 12/07/16 17:25 U Epithel Cells (Auto) 5.0 /HPF (0-13.0) 12/07/16 17:25 Urine Bacteria (Auto) 2+ /HPF (Negative) 12/04/16 14:30 Amorphous Crystals Few 12/07/16 17:25 Hyaline Casts 22 /LPF 12/07/16 17:25 Urine Eosinophils None seen (None Seen) 12/04/16 14:30 Urine Creatinine 336.8 mg/dL (0.1-20.0) H 12/07/16 17:25 Urine Sodium 13 mEq/L 12/07/16 17:25 Urine Potassium 70.20 mEq/L 11/24/16 21:57 Urine Chloride 31.3 mEq/L (110-250) L 11/24/16 21:57 BENJI Screen Negative (Negative) 12/07/16 10:49 Blood Type O POSITIVE 11/28/16 15:22 Antibody Screen TNR 11/28/16 15:22 HUDSON Antibody Screen Negative 11/28/16 15:22 Crossmatch See Detail 11/28/16 15:22
[2016-12-13 05:28] LABS: Basophils % (Auto) 0.7 % (0.0-1.8); Eosinophils % (Auto) 3.1 % (0.0-4.3); Hematocrit 28.9 % (30.3-42.9); Hemoglobin 9.4 gm/dl (10.1-14.3); Mean Corpuscular HGB Conc 33 % (30-34); Mean Corpuscular Hemoglobin 29 pg (28-32); Mean Corpuscular Volume 88 fl (79-97); Platelet Count 164 K/mm3 (140-440); Red Blood Count 3.29 M/mm3 (3.65-5.03); Red Cell Distribution Width 13.9 % (13.2-15.2); White Blood Count 5.3 K/mm3 (4.5-11.0)
[2016-12-13 05:58] LABS: BUN/Creatinine Ratio 3.54; Calcium 9.4 mg/dL (8.4-10.2); Chloride 99.7 mmol/L (98-107); Potassium 4.3 mmol/L (3.6-5.0)
--- NOTE | 2016-12-13 07:46 | Progress Note ---
Assessment and Plan Altered mental status -resolved Head CT shows no acute intracranial process Volume overload - diuresis as tolerated Hyperkalemia -resolved Coronary artery disease with prior CABG Right and LHC findings: moderate to severe elevated left and right heart filling pressures; moderate to severe pulmonary HTN 3 vessel disease ESTRADA to LAD patent, SVG x 2 occluded (Diag and OM), subtotal occlusion of proximal segment of SVG to RCA treated with a drug eluting stent EF 40-45% continue medical therapy with BB, statin, and DAPT. Acute renal failure secondary to contrast nephropathy initiated on dialysis Acute drop in H&H s/p blood transfusion Ischemic Cardiomyopathy with EF 40-45% Continue medical therapy with BB. No ACEi secondary to renal dysfunction maximize medical therapy Hypertension - continue continue medical therapy and maximize as tolerated Subjective Date of service: 12/13/16 Principal diagnosis: ascites Interval history: No acute events. Resting comfortably. No chest pain or SOB. Objective Vital Signs Temp Pulse Pulse Resp BP BP Pulse Ox 12/13/16 06:01 97.8 F 64 20 125/60 91 12/13/16 01:24 98.7 F 66 18 114/64 93 12/12/16 22:34 65 115/57 12/12/16 21:16 97.8 F 65 20 115/57 96 12/12/16 18:38 82 12/12/16 17:04 98.2 F 67 14 133/63 96 12/12/16 13:49 98.2 F 65 18 138/65 91 12/12/16 09:56 100 12/12/16 09:54 98.8 F 68 16 147/71 95 12/12/16 09:15 67 140/67 - Physical Examination General: No Apparent Distress HEENT: Positive: PERRL Neck: Positive: trachea midline Cardiac: Positive: Reg Rate and Rhythm, S1/S2 Lungs: Positive: clear to auscultation Neuro: Positive: Grossly Intact, Weakness Abdomen: Positive: Soft, Distended Incision: Cardiac Cath Site Extremities: Present: +1 Edema - Labs and Meds CBC 12/13/16 Range/Units 04:31 WBC 5.3 (4.5-11.0) K/mm3 RBC 3.29 L (3.65-5.03) M/mm3 Hgb 9.4 L (10.1-14.3) gm/dl Hct 28.9 L (30.3-42.9) % Plt Count 164 (140-440) K/mm3 Lymph # 1.1 L (1.2-5.4) K/mm3 [place] # 0.5 (0.0-0.8) K/mm3 Eos # 0.2 (0.0-0.4) K/mm3 Baso # 0.0 (0.0-0.1) K/mm3 Comprehensive Metabolic Panel 12/13/16 Range/Units 04:31 Carbon Dioxide 27 (22-30) mmol/L BUN 17 (7-17) mg/dL Creatinine 4.8 H (0.7-1.2) mg/dL Glucose 119 H (65-100) mg/dL Calcium 9.4 (8.4-10.2) mg/dL
[2016-12-13] MEDS: EFFEXOR XR PO SCH (10:25)
[2016-12-13] MEDS: IMDUR PO SCH (10:25)
[2016-12-13] MEDS: PROCARDIA XL PO SCH (10:25)
[2016-12-13] MEDS: PLAVIX PO SCH (10:25)
[2016-12-13] MEDS: COREG PO SCH ×2 (10:25→21:29)
[2016-12-13] MEDS: HEPARIN SUB-Q SCH ×2 (10:25→21:30)
[2016-12-13] MEDS: PROTONIX PO SCH (10:25)
[2016-12-13] MEDS: ECOTRIN PO SCH (10:49)
[2016-12-13] MEDS ORDERED: NACL 0.9 (PRIMING MACHINE ONLY DIALYSIS) MC ONE (11:34)
--- NOTE | 2016-12-13 13:12 | Progress Note ---
Assessment and Plan Assessment: * Oligoanuric PATRIA secondary to contrast induced nephropathy on Stage III CKD- HD initiation 12/08 --Baseline SCr 1.4mg/dL * CAD s/p LHC w/ PCI * Cardiomyopathy - EF 40-43% * Hypertension * Anemia Plan: * No evidence of renal recovery - SCr increasing between HD treatments. Continue to monitor for evidence of recovery * Hemodialysis today - continue TTS schedule * Transfuse pRBC per primary team * Cardiology recommendations noted * Avoid potential nephrotoxins * Dose medications for renal function * Strict I/O Subjective Date of service: 12/13/16 Principal diagnosis: ascites Objective - Vital Signs Vital signs: Vital Signs - 12hr 12/13/16 12/13/16 12/13/16 01:24 06:01 10:10 Temperature 98.7 F 97.8 F 97.2 F L Pulse Rate 66 Pulse Rate [ 66 64 Left Radial] Respiratory 18 20 18 Rate Blood Pressure 143/72 Blood Pressure 114/64 125/60 [Left Radial Artery] O2 Sat by Pulse 93 91 Oximetry 12/13/16 12/13/16 12/13/16 10:15 10:30 10:39 Temperature 97.7 F Pulse Rate 66 65 Pulse Rate [ 104 H Left Radial] Respiratory 20 Rate Blood Pressure 143/72 156/75 Blood Pressure 131/73 [Left Radial Artery] O2 Sat by Pulse Oximetry 12/13/16 12/13/16 12/13/16 10:45 11:00 11:15 Temperature Pulse Rate 44 L 65 65 Pulse Rate [ Left Radial] Respiratory Rate Blood Pressure 142/76 151/77 154/80 Blood Pressure [Left Radial Artery] O2 Sat by Pulse Oximetry 12/13/16 12/13/16 12/13/16 11:30 11:45 12:00 Temperature Pulse Rate 66 66 66 Pulse Rate [ Left Radial] Respiratory Rate Blood Pressure 156/77 141/76 141/77 Blood Pressure [Left Radial Artery] O2 Sat by Pulse Oximetry 12/13/16 12/13/16 12:15 12:30 Temperature Pulse Rate 65 66 Pulse Rate [ Left Radial] Respiratory Rate Blood Pressure 152/78 151/72 Blood Pressure [Left Radial Artery] O2 Sat by Pulse Oximetry - General Appearance General appearance: well-developed, well-nourished EENT: ATNC Respiratory: Present: Clear to Ascultation Cardiology: regular, S1S2 Gastrointestinal: no tenderness, no distended, obese Integumentary: no rash Musculoskeletal: other (trace edema) Psychiatric: cooperative - Lab 12/13/16 04:31 12/13/16 04:31 Most recent lab results Calcium 9.4 mg/dL (8.4-10.2) 12/13/16 04:31 Urine Creatinine 336.8 mg/dL (0.1-20.0) H 12/07/16 17:25 Urine Sodium 13 mEq/L 12/07/16 17:25
[2016-12-13] MEDS: ZOFRAN IV PRN ×2 (14:00→21:29)
--- NOTE | 2016-12-13 14:35 | Progress Note ---
Assessment and Plan Patient awake. No complaint of chest pain or shortness of breath..Patient is on room air and O2 saturation 100%.Patient has dialysis today. - Patient Problems (1) PATRIA (acute kidney injury) Current Visit: Yes Status: Acute Plan to address problem: Patient has dialysis today. Management as per nephrology. (2) Acute encephalopathy Current Visit: Yes Status: Acute Plan to address problem: Patient more alert. Encephalopathy improving. (3) Anemia Current Visit: Yes Status: Acute Qualifiers: Anemia type: A Iron deficiency anemia type: I Vitamin B12 deficiency anemia type: V Folate deficiency anemia type: F Bone marrow failure anemia type: B Hemolytic anemia type: H Other causes of anemia: O Chronic kidney disease stage: C Plan to address problem: Management as per primary care. (4) CAD (coronary artery disease) of artery bypass graft Current Visit: Yes Status: Acute Qualifiers: [place] vs. transplanted heart: N Associated angina: A Plan to address problem: Management as per cardiology. (5) Obesity (BMI 30-39.9) Current Visit: Yes Status: Acute Plan to address problem: Weight reduction diet. (6) Sleep apnea Current Visit: Yes Status: Acute Qualifiers: Sleep apnea type: S Plan to address problem: Possible sleep apnea. BIPAP standby in the room. Recommend sleep study as out patient. Subjective Date of service: 12/13/16 Principal diagnosis: ascites Interval history: Patient awake. No complaint of chest pain or shortness of breath..Patient is on room air and O2 saturation 100%.Patient has dialysis today. Objective Vital Signs - 12hr 12/13/16 12/13/16 12/13/16 06:01 10:10 10:15 Temperature 97.8 F 97.2 F L Pulse Rate 66 66 Pulse Rate [ 64 Left Radial] Respiratory 20 18 Rate Blood Pressure 143/72 143/72 Blood Pressure 125/60 [Left Radial Artery] O2 Sat by Pulse 91 Oximetry 12/13/16 12/13/16 12/13/16 10:30 10:39 10:45 Temperature 97.7 F Pulse Rate 65 44 L Pulse Rate [ 104 H Left Radial] Respiratory 20 Rate Blood Pressure 156/75 142/76 Blood Pressure 131/73 [Left Radial Artery] O2 Sat by Pulse Oximetry 12/13/16 12/13/16 12/13/16 11:00 11:15 11:30 Temperature Pulse Rate 65 65 66 Pulse Rate [ Left Radial] Respiratory Rate Blood Pressure 151/77 154/80 156/77 Blood Pressure [Left Radial Artery] O2 Sat by Pulse Oximetry 12/13/16 12/13/16 12/13/16 11:45 12:00 12:15 Temperature Pulse Rate 66 66 65 Pulse Rate [ Left Radial] Respiratory Rate Blood Pressure 141/76 141/77 152/78 Blood Pressure [Left Radial Artery] O2 Sat by Pulse Oximetry 12/13/16 12:30 Temperature Pulse Rate 66 Pulse Rate [ Left Radial] Respiratory Rate Blood Pressure 151/72 Blood Pressure [Left Radial Artery] O2 Sat by Pulse Oximetry Constitutional: no acute distress, other (somnolent) Eyes: non-icteric ENT: oropharynx moist Neck: supple, no lymphadenopathy Effort: normal Ascultation: Bilateral: diminished breath sounds, rales (scant in posterior bases) Cardiovascular: regular rate and rhythm Gastrointestinal: normoactive bowel sounds, soft, non-tender, non-distended Integumentary: normal Extremities: no cyanosis, no edema, pulses normal, no ischemia or petechiae Neurologic: normal mental status, non-focal exam, pupils equal and round, motor strength normal and Psychiatric: depressed CBC and BMP: 12/13/16 04:31 12/13/16 04:31 ABG, PT/INR, D-dimer: ABG POC ABG pH 7.356 (7.35-7.45) 11/25/16 22:20 POC ABG pCO2 38.1 (35-45) 11/25/16 22:20 POC ABG pO2 67 (80-105) L 11/25/16 22:20 POC ABG HCO3 21.3 11/25/16 22:20 POC ABG Total CO2 22 11/25/16 22:20 POC ABG O2 Sat 92 11/25/16 22:20 PT/INR, D-dimer PT 14.5 Sec. (12.2-14.9) 11/22/16 07:20 INR 1.14 (0.87-1.13) H 11/22/16 07:20 Abnormal lab findings: Abnormal Labs 11/22/16 11/22/16 11/22/16 07:20 07:20 07:20 WBC RBC 3.52 L Hgb Hct Plt Count Lymph % (Auto) [place] % (Auto) 11.5 H Eos % (Auto) Lymph # Seg Neutrophils % Seg Neuts % (Manual) Lymphocytes % (Manual) Monocytes % (Manual) Lymphocytes # (Manual) INR 1.14 H APTT Activated Clotting Time POC ABG pH POC ABG pO2 Sodium Potassium Chloride 108.0 H Carbon Dioxide BUN 25 H Creatinine 1.4 H Glucose POC Glucose Uric Acid Calcium AST ALT Total Creatine Kinase Albumin Urine WBC (Auto) Urine Creatinine Urine Chloride Crossmatch 11/22/16 11/22/16 11/22/16 07:37 10:46 13:13 WBC RBC Hgb Hct Plt Count Lymph % (Auto) [place] % (Auto) Eos % (Auto) Lymph # Seg Neutrophils % Seg Neuts % (Manual) Lymphocytes % (Manual) Monocytes % (Manual) Lymphocytes # (Manual) INR APTT 37.7 H Activated Clotting Time 327 H 202 H POC ABG pH POC ABG pO2 Sodium Potassium Chloride Carbon Dioxide BUN Creatinine Glucose POC Glucose Uric Acid Calcium AST ALT Total Creatine Kinase Albumin Urine WBC (Auto) Urine Creatinine Urine Chloride Crossmatch 11/22/16 11/23/16 11/23/16 14:25 06:49 06:49 WBC 4.1 L RBC 2.74 L Hgb 7.7 L Hct 23.8 L D Plt Count 135 L Lymph % (Auto) [place] % (Auto) 13.8 H Eos % (Auto) Lymph # Seg Neutrophils % Seg Neuts % (Manual) Lymphocytes % (Manual) Monocytes % (Manual) Lymphocytes # (Manual) INR APTT Activated Clotting Time 175 H POC ABG pH POC ABG pO2 Sodium Potassium Chloride Carbon Dioxide BUN 27 H Creatinine 1.8 H Glucose 137 H POC Glucose Uric Acid Calcium 8.0 L AST ALT Total Creatine Kinase 183 H Albumin Urine WBC (Auto) Urine Creatinine Urine Chloride Crossmatch 11/23/16 11/23/16 11/23/16 11:07 12:45 17:32 WBC RBC 2.98 L Hgb 8.5 L Hct 26.3 L Plt Count Lymph % (Auto) [place] % (Auto) 13.2 H Eos % (Auto) Lymph # Seg Neutrophils % Seg Neuts % (Manual) Lymphocytes % (Manual) Monocytes % (Manual) Lymphocytes # (Manual) INR APTT Activated Clotting Time POC ABG pH POC ABG pO2 Sodium Potassium Chloride Carbon Dioxide BUN Creatinine Glucose POC Glucose 134 H 171 H Uric Acid Calcium AST ALT Total Creatine Kinase Albumin Urine WBC (Auto) Urine Creatinine Urine Chloride Crossmatch 11/23/16 11/24/16 11/24/16 21:24 05:28 05:28 WBC RBC Hgb 8.6 L Hct 26.8 L Plt Count Lymph % (Auto) [place] % (Auto) Eos % (Auto) Lymph # Seg Neutrophils % Seg Neuts % (Manual) Lymphocytes % (Manual) Monocytes % (Manual) Lymphocytes # (Manual) INR APTT Activated Clotting Time POC ABG pH POC ABG pO2 Sodium Potassium 5.9 H D Chloride Carbon Dioxide 19 L BUN 33 H Creatinine 2.7 H Glucose 162 H POC Glucose 174 H Uric Acid Calcium AST ALT Total Creatine Kinase Albumin Urine WBC (Auto) Urine Creatinine Urine Chloride Crossmatch 11/24/16 11/24/16 11/24/16 06:23 07:05 07:09 WBC RBC Hgb Hct Plt Count Lymph % (Auto) [place] % (Auto) Eos % (Auto) Lymph # Seg Neutrophils % Seg Neuts % (Manual) Lymphocytes % (Manual) Monocytes % (Manual) Lymphocytes # (Manual) INR APTT Activated Clotting Time POC ABG pH 7.264 L POC ABG pO2 33 L Sodium Potassium 5.8 H Chloride Carbon Dioxide 20 L BUN 33 H Creatinine 2.8 H Glucose 158 H POC Glucose 209 H Uric Acid Calcium AST 100 H ALT 118 H Total Creatine Kinase Albumin 3.5 L Urine WBC (Auto) Urine Creatinine Urine Chloride Crossmatch 11/24/16 11/24/16 11/24/16 07:19 08:50 11:45 WBC RBC Hgb Hct Plt Count Lymph % (Auto) [place] % (Auto) Eos % (Auto) Lymph # Seg Neutrophils % Seg Neuts % (Manual) Lymphocytes % (Manual) Monocytes % (Manual) Lymphocytes # (Manual) INR APTT Activated Clotting Time POC ABG pH 7.285 L POC ABG pO2 64 L Sodium Potassium Chloride Carbon Dioxide BUN Creatinine Glucose POC Glucose 193 H 169 H Uric Acid Calcium AST ALT Total Creatine Kinase Albumin Urine WBC (Auto) Urine Creatinine Urine Chloride Crossmatch 11/24/16 11/24/16 11/24/16 15:24 15:32 17:14 WBC RBC Hgb Hct Plt Count Lymph % (Auto) [place] % (Auto) Eos % (Auto) Lymph # Seg Neutrophils % Seg Neuts % (Manual) Lymphocytes % (Manual) Monocytes % (Manual) Lymphocytes # (Manual) INR APTT Activated Clotting Time POC ABG pH POC ABG pO2 Sodium Potassium 5.2 H Chloride Carbon Dioxide 20 L BUN 37 H Creatinine 3.0 H Glucose 144 H POC Glucose 195 H Uric Acid Calcium AST ALT Total Creatine Kinase Albumin Urine WBC (Auto) Urine Creatinine Urine Chloride Crossmatch See Detail 11/24/16 11/24/16 11/25/16 21:57 23:39 05:30 WBC RBC Hgb Hct Plt Count Lymph % (Auto) [place] % (Auto) Eos % (Auto) Lymph # Seg Neutrophils % Seg Neuts % (Manual) Lymphocytes % (Manual) Monocytes % (Manual) Lymphocytes # (Manual) INR APTT Activated Clotting Time POC ABG pH POC ABG pO2 Sodium Potassium Chloride Carbon Dioxide BUN Creatinine Glucose POC Glucose 112 H 129 H Uric Acid Calcium AST ALT Total Creatine Kinase Albumin Urine WBC (Auto) Urine Creatinine 295.3 H Urine Chloride 31.3 L Crossmatch 11/25/16 11/25/16 11/25/16 07:00 07:00 08:40 WBC RBC 3.30 L Hgb 9.5 L Hct 29.0 L Plt Count 119 L Lymph % (Auto) [place] % (Auto) 9.5 H Eos % (Auto) Lymph # Seg Neutrophils % 72.7 H Seg Neuts % (Manual) Lymphocytes % (Manual) Monocytes % (Manual) Lymphocytes # (Manual) INR APTT Activated Clotting Time POC ABG pH POC ABG pO2 Sodium Potassium Chloride 110.1 H Carbon Dioxide 18 L BUN 38 H Creatinine 2.6 H Glucose 123 H POC Glucose 129 H Uric Acid Calcium 8.2 L AST ALT Total Creatine Kinase Albumin Urine WBC (Auto) Urine Creatinine Urine Chloride Crossmatch 11/25/16 11/25/16 11/25/16 11:24 12:17 16:16 WBC RBC Hgb Hct Plt Count Lymph % (Auto) [place] % (Auto) Eos % (Auto) Lymph # Seg Neutrophils % Seg Neuts % (Manual) Lymphocytes % (Manual) Monocytes % (Manual) Lymphocytes # (Manual) INR APTT Activated Clotting Time POC ABG pH 7.327 L POC ABG pO2 Sodium Potassium Chloride Carbon Dioxide BUN Creatinine Glucose POC Glucose 142 H 151 H Uric Acid Calcium AST ALT Total Creatine Kinase Albumin Urine WBC (Auto) Urine Creatinine Urine Chloride Crossmatch 11/25/16 11/25/16 11/26/16 21:48 22:20 00:58 WBC RBC 3.23 L Hgb 9.2 L Hct 27.9 L Plt Count 119 L Lymph % (Auto) 10.2 L [place] % (Auto) 7.6 H Eos % (Auto) Lymph # 0.8 L Seg Neutrophils % 79.9 H Seg Neuts % (Manual) Lymphocytes % (Manual) Monocytes % (Manual) Lymphocytes # (Manual) INR APTT Activated Clotting Time POC ABG pH POC ABG pO2 67 L Sodium Potassium Chloride Carbon Dioxide BUN Creatinine Glucose POC Glucose 149 H Uric Acid Calcium AST ALT Total Creatine Kinase Albumin Urine WBC (Auto) Urine Creatinine Urine Chloride Crossmatch 11/26/16 11/26/16 11/26/16 06:11 07:40 11:28 WBC RBC Hgb Hct Plt Count Lymph % (Auto) [place] % (Auto) Eos % (Auto) Lymph # Seg Neutrophils % Seg Neuts % (Manual) Lymphocytes % (Manual) Monocytes % (Manual) Lymphocytes # (Manual) INR APTT Activated Clotting Time POC ABG pH POC ABG pO2 Sodium Potassium Chloride Carbon Dioxide 21 L BUN 41 H Creatinine 2.5 H Glucose 151 H POC Glucose 144 H 168 H Uric Acid Calcium 8.1 L AST ALT Total Creatine Kinase Albumin Urine WBC (Auto) Urine Creatinine Urine Chloride Crossmatch 11/26/16 11/27/16 11/27/16 15:50 00:03 03:45 WBC RBC Hgb Hct Plt Count Lymph % (Auto) [place] % (Auto) Eos % (Auto) Lymph # Seg Neutrophils % Seg Neuts % (Manual) Lymphocytes % (Manual) Monocytes % (Manual) Lymphocytes # (Manual) INR APTT Activated Clotting Time POC ABG pH POC ABG pO2 Sodium Potassium Chloride Carbon Dioxide BUN 46 H Creatinine 2.8 H Glucose 147 H POC Glucose 153 H 183 H Uric Acid Calcium 8.1 L AST ALT Total Creatine Kinase Albumin Urine WBC (Auto) Urine Creatinine Urine Chloride Crossmatch 11/27/16 11/27/16 11/27/16 06:26 07:32 11:53 WBC RBC Hgb Hct Plt Count Lymph % (Auto) [place] % (Auto) Eos % (Auto) Lymph # Seg Neutrophils % Seg Neuts % (Manual) Lymphocytes % (Manual) Monocytes % (Manual) Lymphocytes # (Manual) INR APTT Activated Clotting Time POC ABG pH POC ABG pO2 Sodium Potassium Chloride Carbon Dioxide BUN Creatinine Glucose POC Glucose 208 H 193 H 180 H Uric Acid Calcium AST ALT Total Creatine Kinase Albumin Urine WBC (Auto) Urine Creatinine Urine Chloride Crossmatch 11/27/16 11/27/16 11/28/16 16:42 21:51 08:13 WBC RBC Hgb Hct Plt Count Lymph % (Auto) [place] % (Auto) Eos % (Auto) Lymph # Seg Neutrophils % Seg Neuts % (Manual) Lymphocytes % (Manual) Monocytes % (Manual) Lymphocytes # (Manual) INR APTT Activated Clotting Time POC ABG pH POC ABG pO2 Sodium Potassium Chloride Carbon Dioxide BUN Creatinine Glucose POC Glucose 161 H 167 H 151 H Uric Acid Calcium AST ALT Total Creatine Kinase Albumin Urine WBC (Auto) Urine Creatinine Urine Chloride Crossmatch 11/28/16 11/28/16 11/28/16 10:01 10:01 12:30 WBC RBC Hgb 8.5 L Hct 25.3 L Plt Count Lymph % (Auto) [place] % (Auto) Eos % (Auto) Lymph # Seg Neutrophils % Seg Neuts % (Manual) Lymphocytes % (Manual) Monocytes % (Manual) Lymphocytes # (Manual) INR APTT Activated Clotting Time POC ABG pH POC ABG pO2 Sodium 136 L Potassium Chloride Carbon Dioxide BUN 50 H Creatinine 2.8 H Glucose 143 H POC Glucose 154 H Uric Acid Calcium 8.1 L AST ALT Total Creatine Kinase Albumin Urine WBC (Auto) Urine Creatinine Urine Chloride Crossmatch 11/28/16 11/28/16 11/28/16 15:22 16:55 20:40 WBC RBC Hgb Hct Plt Count Lymph % (Auto) [place] % (Auto) Eos % (Auto) Lymph # Seg Neutrophils % Seg Neuts % (Manual) Lymphocytes % (Manual) Monocytes % (Manual) Lymphocytes # (Manual) INR APTT Activated Clotting Time POC ABG pH POC ABG pO2 Sodium Potassium Chloride Carbon Dioxide BUN Creatinine Glucose POC Glucose 191 H 177 H Uric Acid Calcium AST ALT Total Creatine Kinase Albumin Urine WBC (Auto) Urine Creatinine Urine Chloride Crossmatch See Detail 11/29/16 11/29/16 11/29/16 07:18 07:18 07:31 WBC RBC Hgb 9.5 L Hct 28.2 L Plt Count Lymph % (Auto) [place] % (Auto) Eos % (Auto) Lymph # Seg Neutrophils % Seg Neuts % (Manual) Lymphocytes % (Manual) Monocytes % (Manual) Lymphocytes # (Manual) INR APTT Activated Clotting Time POC ABG pH POC ABG pO2 Sodium 136 L Potassium Chloride Carbon Dioxide BUN 51 H Creatinine 2.7 H Glucose 120 H POC Glucose 127 H Uric Acid Calcium 8.1 L AST ALT Total Creatine Kinase Albumin Urine WBC (Auto) Urine Creatinine Urine Chloride Crossmatch 11/29/16 11/29/16 11/29/16 12:49 17:35 20:31 WBC RBC Hgb Hct Plt Count Lymph % (Auto) [place] % (Auto) Eos % (Auto) Lymph # Seg Neutrophils % Seg Neuts % (Manual) Lymphocytes % (Manual) Monocytes % (Manual) Lymphocytes # (Manual) INR APTT Activated Clotting Time POC ABG pH POC ABG pO2 Sodium Potassium Chloride Carbon Dioxide BUN Creatinine Glucose POC Glucose 213 H 179 H 154 H Uric Acid Calcium AST ALT Total Creatine Kinase Albumin Urine WBC (Auto) Urine Creatinine Urine Chloride Crossmatch 11/30/16 11/30/16 11/30/16 08:25 09:52 16:07 WBC RBC Hgb Hct Plt Count Lymph % (Auto) [place] % (Auto) Eos % (Auto) Lymph # Seg Neutrophils % Seg Neuts % (Manual) Lymphocytes % (Manual) Monocytes % (Manual) Lymphocytes # (Manual) INR APTT Activated Clotting Time POC ABG pH POC ABG pO2 Sodium Potassium Chloride Carbon Dioxide BUN 52 H Creatinine 3.0 H Glucose 156 H POC Glucose 127 H 216 H Uric Acid Calcium AST ALT Total Creatine Kinase Albumin Urine WBC (Auto) Urine Creatinine Urine Chloride Crossmatch 11/30/16 12/01/16 12/01/16 20:45 08:34 08:48 WBC RBC Hgb Hct Plt Count Lymph % (Auto) [place] % (Auto) Eos % (Auto) Lymph # Seg Neutrophils % Seg Neuts % (Manual) Lymphocytes % (Manual) Monocytes % (Manual) Lymphocytes # (Manual) INR APTT Activated Clotting Time POC ABG pH POC ABG pO2 Sodium 136 L Potassium Chloride Carbon Dioxide BUN 50 H Creatinine 3.0 H Glucose 124 H POC Glucose 197 H 136 H Uric Acid Calcium AST ALT Total Creatine Kinase Albumin Urine WBC (Auto) Urine Creatinine Urine Chloride Crossmatch 12/01/16 12/01/16 12/01/16 11:35 16:56 22:08 WBC RBC Hgb Hct Plt Count Lymph % (Auto) [place] % (Auto) Eos % (Auto) Lymph # Seg Neutrophils % Seg Neuts % (Manual) Lymphocytes % (Manual) Monocytes % (Manual) Lymphocytes # (Manual) INR APTT Activated Clotting Time POC ABG pH POC ABG pO2 Sodium Potassium Chloride Carbon Dioxide BUN Creatinine Glucose POC Glucose 205 H 210 H 157 H Uric Acid Calcium AST ALT Total Creatine Kinase Albumin Urine WBC (Auto) Urine Creatinine Urine Chloride Crossmatch 12/02/16 12/02/16 12/02/16 05:52 08:47 15:16 WBC RBC Hgb Hct Plt Count Lymph % (Auto) [place] % (Auto) Eos % (Auto) Lymph # Seg Neutrophils % Seg Neuts % (Manual) Lymphocytes % (Manual) Monocytes % (Manual) Lymphocytes # (Manual) INR APTT Activated Clotting Time POC ABG pH POC ABG pO2 Sodium Potassium Chloride Carbon Dioxide BUN 48 H Creatinine 2.7 H Glucose 136 H POC Glucose 134 H 226 H Uric Acid Calcium AST ALT Total Creatine Kinase Albumin Urine WBC (Auto) Urine Creatinine Urine Chloride Crossmatch 12/02/16 12/03/16 12/03/16 22:53 05:58 05:58 WBC 4.2 L RBC 3.37 L Hgb 9.7 L Hct 29.4 L Plt Count Lymph % (Auto) [place] % (Auto) Eos % (Auto) Lymph # Seg Neutrophils % Seg Neuts % (Manual) Lymphocytes % (Manual) Monocytes % (Manual) Lymphocytes # (Manual) INR APTT Activated Clotting Time POC ABG pH POC ABG pO2 Sodium Potassium Chloride Carbon Dioxide BUN 47 H Creatinine 2.7 H Glucose 142 H POC Glucose 235 H Uric Acid Calcium AST ALT Total Creatine Kinase Albumin Urine WBC (Auto) Urine Creatinine Urine Chloride Crossmatch 12/03/16 12/03/16 12/03/16 13:04 16:47 21:50 WBC RBC Hgb Hct Plt Count Lymph % (Auto) [place] % (Auto) Eos % (Auto) Lymph # Seg Neutrophils % Seg Neuts % (Manual) Lymphocytes % (Manual) Monocytes % (Manual) Lymphocytes # (Manual) INR APTT Activated Clotting Time POC ABG pH POC ABG pO2 Sodium Potassium Chloride Carbon Dioxide BUN Creatinine Glucose POC Glucose 135 H 140 H 170 H Uric Acid Calcium AST ALT Total Creatine Kinase Albumin Urine WBC (Auto) Urine Creatinine Urine Chloride Crossmatch 12/04/16 12/04/16 12/04/16 07:26 12:21 16:43 WBC RBC Hgb Hct Plt Count Lymph % (Auto) [place] % (Auto) Eos % (Auto) Lymph # Seg Neutrophils % Seg Neuts % (Manual) Lymphocytes % (Manual) Monocytes % (Manual) Lymphocytes # (Manual) INR APTT Activated Clotting Time POC ABG pH POC ABG pO2 Sodium Potassium Chloride Carbon Dioxide BUN Creatinine Glucose POC Glucose 145 H 203 H 210 H Uric Acid Calcium AST ALT Total Creatine Kinase Albumin Urine WBC (Auto) Urine Creatinine Urine Chloride Crossmatch 12/04/16 12/05/16 12/05/16 21:41 07:54 07:54 WBC RBC 3.10 L Hgb 9.0 L Hct 26.9 L Plt Count Lymph % (Auto) [place] % (Auto) 13.8 H Eos % (Auto) 5.3 H Lymph # 1.1 L Seg Neutrophils % Seg Neuts % (Manual) Lymphocytes % (Manual) Monocytes % (Manual) Lymphocytes # (Manual) INR APTT Activated Clotting Time POC ABG pH POC ABG pO2 Sodium Potassium Chloride Carbon Dioxide BUN 51 H Creatinine 3.7 H Glucose 132 H POC Glucose 211 H Uric Acid Calcium AST ALT Total Creatine Kinase Albumin Urine WBC (Auto) Urine Creatinine Urine Chloride Crossmatch 12/05/16 12/05/16 12/05/16 08:30 11:46 22:02 WBC RBC Hgb Hct Plt Count Lymph % (Auto) [place] % (Auto) Eos % (Auto) Lymph # Seg Neutrophils % Seg Neuts % (Manual) Lymphocytes % (Manual) Monocytes % (Manual) Lymphocytes # (Manual) INR APTT Activated Clotting Time POC ABG pH POC ABG pO2 Sodium Potassium Chloride Carbon Dioxide BUN Creatinine Glucose POC Glucose 140 H 225 H 165 H Uric Acid Calcium AST ALT Total Creatine Kinase Albumin Urine WBC (Auto) Urine Creatinine Urine Chloride Crossmatch 12/06/16 12/06/16 12/06/16 08:17 09:10 09:10 WBC RBC Hgb Hct Plt Count Lymph % (Auto) [place] % (Auto) Eos % (Auto) Lymph # Seg Neutrophils % Seg Neuts % (Manual) Lymphocytes % (Manual) Monocytes % (Manual) Lymphocytes # (Manual) INR APTT Activated Clotting Time POC ABG pH POC ABG pO2 Sodium Potassium Chloride 97.6 L Carbon Dioxide BUN 50 H Creatinine 3.8 H Glucose 126 H POC Glucose 166 H Uric Acid 10.0 H Calcium AST ALT Total Creatine Kinase Albumin Urine WBC (Auto) Urine Creatinine Urine Chloride Crossmatch 12/06/16 12/06/16 12/06/16 12:18 17:39 22:31 WBC RBC Hgb Hct Plt Count Lymph % (Auto) [place] % (Auto) Eos % (Auto) Lymph # Seg Neutrophils % Seg Neuts % (Manual) Lymphocytes % (Manual) Monocytes % (Manual) Lymphocytes # (Manual) INR APTT Activated Clotting Time POC ABG pH POC ABG pO2 Sodium Potassium Chloride Carbon Dioxide BUN Creatinine Glucose POC Glucose 188 H 176 H 157 H Uric Acid Calcium AST ALT Total Creatine Kinase Albumin Urine WBC (Auto) Urine Creatinine Urine Chloride Crossmatch 12/07/16 12/07/16 12/07/16 08:48 08:49 09:01 WBC RBC Hgb Hct Plt Count Lymph % (Auto) [place] % (Auto) Eos % (Auto) Lymph # Seg Neutrophils % Seg Neuts % (Manual) Lymphocytes % (Manual) Monocytes % (Manual) Lymphocytes # (Manual) INR APTT Activated Clotting Time POC ABG pH POC ABG pO2 Sodium Potassium Chloride 97.9 L Carbon Dioxide BUN 52 H Creatinine 4.2 H Glucose 105 H POC Glucose 107 H Uric Acid 10.3 H Calcium AST ALT Total Creatine Kinase 188 H Albumin Urine WBC (Auto) Urine Creatinine Urine Chloride Crossmatch 12/07/16 12/07/16 12/07/16 12:27 16:59 17:25 WBC RBC Hgb Hct Plt Count Lymph % (Auto) [place] % (Auto) Eos % (Auto) Lymph # Seg Neutrophils % Seg Neuts % (Manual) Lymphocytes % (Manual) Monocytes % (Manual) Lymphocytes # (Manual) INR APTT Activated Clotting Time POC ABG pH POC ABG pO2 Sodium Potassium Chloride Carbon Dioxide BUN Creatinine Glucose POC Glucose 163 H 124 H Uric Acid Calcium AST ALT Total Creatine Kinase Albumin Urine WBC (Auto) 9.0 H Urine Creatinine Urine Chloride Crossmatch 12/07/16 12/07/16 12/08/16 17:25 22:04 07:53 WBC RBC Hgb Hct Plt Count Lymph % (Auto) [place] % (Auto) Eos % (Auto) Lymph # Seg Neutrophils % Seg Neuts % (Manual) Lymphocytes % (Manual) Monocytes % (Manual) Lymphocytes # (Manual) INR APTT Activated Clotting Time POC ABG pH POC ABG pO2 Sodium Potassium Chloride Carbon Dioxide BUN Creatinine Glucose POC Glucose 133 H 168 H Uric Acid Calcium AST ALT Total Creatine Kinase Albumin Urine WBC (Auto) Urine Creatinine 336.8 H Urine Chloride Crossmatch 12/08/16 12/08/16 12/08/16 08:05 12:17 22:09 WBC RBC Hgb Hct Plt Count Lymph % (Auto) [place] % (Auto) Eos % (Auto) Lymph # Seg Neutrophils % Seg Neuts % (Manual) Lymphocytes % (Manual) Monocytes % (Manual) Lymphocytes # (Manual) INR APTT Activated Clotting Time POC ABG pH POC ABG pO2 Sodium Potassium Chloride Carbon Dioxide BUN 55 H Creatinine 5.0 H Glucose 142 H POC Glucose 140 H 154 H Uric Acid Calcium AST ALT Total Creatine Kinase Albumin Urine WBC (Auto) Urine Creatinine Urine Chloride Crossmatch 12/09/16 12/09/16 12/09/16 06:40 07:47 08:41 WBC RBC 3.09 L Hgb 8.8 L Hct 27.0 L Plt Count Lymph % (Auto) [place] % (Auto) Eos % (Auto) Lymph # Seg Neutrophils % Seg Neuts % (Manual) 75.0 H Lymphocytes % (Manual) 13.0 L Monocytes % (Manual) 8.0 H Lymphocytes # (Manual) 0.7 L INR APTT Activated Clotting Time POC ABG pH POC ABG pO2 Sodium Potassium Chloride Carbon Dioxide BUN 23 H Creatinine 3.1 H Glucose 108 H POC Glucose 115 H Uric Acid Calcium AST ALT Total Creatine Kinase Albumin Urine WBC (Auto) Urine Creatinine Urine Chloride Crossmatch 12/09/16 12/09/16 12/09/16 08:41 12:26 22:19 WBC RBC Hgb Hct Plt Count Lymph % (Auto) [place] % (Auto) Eos % (Auto) Lymph # Seg Neutrophils % Seg Neuts % (Manual) Lymphocytes % (Manual) Monocytes % (Manual) Lymphocytes # (Manual) INR APTT Activated Clotting Time POC ABG pH POC ABG pO2 Sodium Potassium Chloride Carbon Dioxide BUN 23 H Creatinine 3.0 H Glucose 108 H POC Glucose 140 H 139 H Uric Acid Calcium AST ALT Total Creatine Kinase Albumin Urine WBC (Auto) Urine Creatinine Urine Chloride Crossmatch 12/10/16 12/10/16 12/10/16 06:00 06:00 06:00 WBC RBC 3.47 L Hgb 9.8 L Hct Plt Count Lymph % (Auto) [place] % (Auto) Eos % (Auto) Lymph # Seg Neutrophils % Seg Neuts % (Manual) Lymphocytes % (Manual) Monocytes % (Manual) Lymphocytes # (Manual) INR APTT Activated Clotting Time POC ABG pH POC ABG pO2 Sodium Potassium Chloride Carbon Dioxide BUN Creatinine 1.9 H 1.9 H Glucose 120 H 120 H POC Glucose Uric Acid Calcium AST ALT Total Creatine Kinase Albumin 5.1 H Urine WBC (Auto) Urine Creatinine Urine Chloride Crossmatch 12/10/16 12/10/16 12/10/16 08:34 16:38 21:00 WBC RBC Hgb Hct Plt Count Lymph % (Auto) [place] % (Auto) Eos % (Auto) Lymph # Seg Neutrophils % Seg Neuts % (Manual) Lymphocytes % (Manual) Monocytes % (Manual) Lymphocytes # (Manual) INR APTT Activated Clotting Time POC ABG pH POC ABG pO2 Sodium Potassium Chloride Carbon Dioxide BUN Creatinine Glucose POC Glucose 137 H 109 H 155 H Uric Acid Calcium AST ALT Total Creatine Kinase Albumin Urine WBC (Auto) Urine Creatinine Urine Chloride Crossmatch 12/11/16 12/11/16 12/11/16 06:02 12:33 17:36 WBC RBC Hgb Hct Plt Count Lymph % (Auto) [place] % (Auto) Eos % (Auto) Lymph # Seg Neutrophils % Seg Neuts % (Manual) Lymphocytes % (Manual) Monocytes % (Manual) Lymphocytes # (Manual) INR APTT Activated Clotting Time POC ABG pH POC ABG pO2 Sodium Potassium Chloride 97.0 L Carbon Dioxide 31 H BUN Creatinine 2.3 H Glucose 133 H POC Glucose 131 H 145 H Uric Acid Calcium AST ALT Total Creatine Kinase Albumin Urine WBC (Auto) Urine Creatinine Urine Chloride Crossmatch 12/11/16 12/12/16 12/12/16 21:50 05:58 07:46 WBC RBC Hgb Hct Plt Count Lymph % (Auto) [place] % (Auto) Eos % (Auto) Lymph # Seg Neutrophils % Seg Neuts % (Manual) Lymphocytes % (Manual) Monocytes % (Manual) Lymphocytes # (Manual) INR APTT Activated Clotting Time POC ABG pH POC ABG pO2 Sodium Potassium Chloride Carbon Dioxide BUN Creatinine 3.5 H D Glucose 127 H POC Glucose 158 H 148 H Uric Acid Calcium AST ALT Total Creatine Kinase Albumin Urine WBC (Auto) Urine Creatinine Urine Chloride Crossmatch 12/12/16 12/12/16 12/12/16 11:42 15:55 21:56 WBC RBC Hgb Hct Plt Count Lymph % (Auto) [place] % (Auto) Eos % (Auto) Lymph # Seg Neutrophils % Seg Neuts % (Manual) Lymphocytes % (Manual) Monocytes % (Manual) Lymphocytes # (Manual) INR APTT Activated Clotting Time POC ABG pH POC ABG pO2 Sodium Potassium Chloride Carbon Dioxide BUN Creatinine Glucose POC Glucose 189 H 167 H 160 H Uric Acid Calcium AST ALT Total Creatine Kinase Albumin Urine WBC (Auto) Urine Creatinine Urine Chloride Crossmatch 12/13/16 12/13/16 12/13/16 04:31 04:31 08:03 WBC RBC 3.29 L Hgb 9.4 L Hct 28.9 L Plt Count Lymph % (Auto) [place] % (Auto) 9.2 H Eos % (Auto) Lymph # 1.1 L Seg Neutrophils % Seg Neuts % (Manual) Lymphocytes % (Manual) Monocytes % (Manual) Lymphocytes # (Manual) INR APTT Activated Clotting Time POC ABG pH POC ABG pO2 Sodium Potassium Chloride Carbon Dioxide BUN Creatinine 4.8 H Glucose 119 H POC Glucose 128 H Uric Acid Calcium AST ALT Total Creatine Kinase Albumin Urine WBC (Auto) Urine Creatinine Urine Chloride Crossmatch Chest x-ray: report reviewed (Reported no evidence of acute disease.)
[2016-12-13] MEDS: HEPARIN IV PRN (14:52)
[2016-12-13] MEDS: PROCRIT IV PRN (17:02)
--- NOTE | 2016-12-13 18:42 | Progress Note ---
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 She had PCI of SVG to RCA with 99% to 0% with 3.0 mm DE stent. Patient was kept overnight in the hospital to monitor creatinine before discharge. Repeat labs in the morning did reveal an increase in creatinine around 2.7. Patient was also lethargic with altered sensorium and was placed in the ICU for close observation. She was also on nitro drip but with no fever blood pressure was adequately controlled. Subsequently the Lasix was discontinued and HERO inhibitor discontinue due to the rise in creatinine. Nephrology and pulmonology/ ccm were consulted. It was determined that the patient will benefit from dialysis. Patient was subsequent transferred out of the ICU to the floor as she remained stable. -Ischemic cardiomyopathy status post PCI of SVG TO RCA: Cardiology following. Continue dual antiplatelet therapy -Abdominal pain: Resolved. Likely constipation, lactulose prn and also fleet enema. no ascities noted as previously suspected, GI Consulted -Acute kidney injury on chronic kidney disease stage III likely contrast nephropathy.-Creatinine 1 back up to 3 with no clear evidence of renal recovery. Still a little uric, Nephrology following. PER Nephrology no ACEI OR ARBS on DISCHARGE. -Acute toxic Metabolic encephalopathy- Resolved CT of the brain negative. -Acute blood loss anemia- S/P 2 units packed red blood cell transfusion. Hemoglobin is stable. We'll check intermittent. No GI bleed noted. -Hypertension- Stable -Anasarca-improved. Patient was initially treated with IV Lasix and albumin this has been since discontinued. Expect improvement with dialysis. -Moderate to severe pulmonary hypertension- cardiology following. -DVT and GI prophylaxis -Plan of care discussed in detail with the patient and (over the phone per wishes). Awaiting to see if she has progressed to ESRD. History Interval history: Patient seen and examined. Follow up on acute renal failure. Overnight uneventful. No cp, sob, n/v or severe headaches. Imaging, old records, testing, labs, nursing notes reviewed. Hospitalist Physical - Physical exam Narrative exam: GEN: WDWN, NAD, AWAKE, ALERT, ORIENTATED x 3 CVS: RRR, NORMAL S1S2 LUNGS/CHEST: NORMAL CHEST EXPANSION B, GOOD AIR ENTRY B ABD: SOFT, NTND, GBS, NO REBOUND OR GUARDING MSK: FROM X 4 EXTREMITIES NEURO: CN 2-12 GROSSLY INTACT except left eye blindness, NO new FOCAL DEFICITS PSY: CALM - Constitutional Vitals: Temp Pulse Resp BP Pulse Ox 97.7 F 71 18 157/76 97 12/13/16 13:57 12/13/16 13:57 12/13/16 13:57 12/13/16 13:57 12/13/16 10:00 General appearance: Present: no acute distress Results - Labs CBC & Chem 7: 12/13/16 04:31 12/13/16 04:31 Labs: Laboratory Last Values WBC 5.3 K/mm3 (4.5-11.0) 12/13/16 04:31 RBC 3.29 M/mm3 (3.65-5.03) L 12/13/16 04:31 Hgb 9.4 gm/dl (10.1-14.3) L 12/13/16 04:31 Hct 28.9 % (30.3-42.9) L 12/13/16 04:31 MCV 88 fl (79-97) 12/13/16 04:31 MCH 29 pg (28-32) 12/13/16 04:31 MCHC 33 % (30-34) 12/13/16 04:31 RDW 13.9 % (13.2-15.2) 12/13/16 04:31 Plt Count 164 K/mm3 (140-440) 12/13/16 04:31 Lymph % (Auto) 20.9 % (13.4-35.0) 12/13/16 04:31 [place] % (Auto) 9.2 % (0.0-7.3) H 12/13/16 04:31 Eos % (Auto) 3.1 % (0.0-4.3) 12/13/16 04:31 Baso % (Auto) 0.7 % (0.0-1.8) 12/13/16 04:31 Lymph # 1.1 K/mm3 (1.2-5.4) L 12/13/16 04:31 Bucks # 0.5 K/mm3 (0.0-0.8) 12/13/16 04:31 Eos # 0.2 K/mm3 (0.0-0.4) 12/13/16 04:31 Baso # 0.0 K/mm3 (0.0-0.1) 12/13/16 04:31 Add Manual Diff Complete 12/09/16 08:41 Total Counted 100 12/09/16 08:41 Seg Neutrophils % 66.1 % (40.0-70.0) 12/13/16 04:31 Seg Neuts % (Manual) 75.0 % (40.0-70.0) H 12/09/16 08:41 Band Neutrophils % 0 % 12/09/16 08:41 Lymphocytes % (Manual) 13.0 % (13.4-35.0) L 12/09/16 08:41 Reactive Lymphs % (Man) 0 % 12/09/16 08:41 Monocytes % (Manual) 8.0 % (0.0-7.3) H 12/09/16 08:41 Eosinophils % (Manual) 3.0 % (0.0-4.3) 12/09/16 08:41 Basophils % (Manual) 1.0 % (0.0-1.8) 12/09/16 08:41 Metamyelocytes % 0 % 12/09/16 08:41 Myelocytes % 0 % 12/09/16 08:41 Promyelocytes % 0 % 12/09/16 08:41 Blast Cells % 0 % 12/09/16 08:41 Nucleated RBC % Not Reportable 12/09/16 08:41 Seg Neutrophils # 3.5 K/mm3 (1.8-7.7) 12/13/16 04:31 Seg Neutrophils # Man 3.8 K/mm3 (1.8-7.7) 12/09/16 08:41 Band Neutrophils # 0.0 K/mm3 12/09/16 08:41 Lymphocytes # (Manual) 0.7 K/mm3 (1.2-5.4) L 12/09/16 08:41 Abs React Lymphs (Man) 0.0 K/mm3 12/09/16 08:41 Monocytes # (Manual) 0.4 K/mm3 (0.0-0.8) 12/09/16 08:41 Eosinophils # (Manual) 0.2 K/mm3 (0.0-0.4) 12/09/16 08:41 Basophils # (Manual) 0.1 K/mm3 (0.0-0.1) 12/09/16 08:41 Metamyelocytes # 0.0 K/mm3 12/09/16 08:41 Myelocytes # 0.0 K/mm3 12/09/16 08:41 Promyelocytes # 0.0 K/mm3 12/09/16 08:41 Blast Cells # 0.0 K/mm3 12/09/16 08:41 WBC Morphology Not Reportable 12/09/16 08:41 Hypersegmented Neuts Not Reportable 12/09/16 08:41 Hyposegmented Neuts Not Reportable 12/09/16 08:41 Hypogranular Neuts Not Reportable 12/09/16 08:41 Smudge Cells Not Reportable 12/09/16 08:41 Toxic Granulation Not Reportable 12/09/16 08:41 Toxic Vacuolation Not Reportable 12/09/16 08:41 Dohle Bodies Not Reportable 12/09/16 08:41 Pelger-Huet Anomaly Not Reportable 12/09/16 08:41 Rich Rods Not Reportable 12/09/16 08:41 Platelet Estimate Appears normal 12/09/16 08:41 Clumped Platelets Not Reportable 12/09/16 08:41 Plt Clumps, EDTA Not Reportable 12/09/16 08:41 Large Platelets Not Reportable 12/09/16 08:41 Giant Platelets Not Reportable 12/09/16 08:41 Platelet Satelliting Not Reportable 12/09/16 08:41 Plt Morphology Comment Not Reportable 12/09/16 08:41 RBC Morphology Not Reportable 12/09/16 08:41 Dimorphic RBCs Not Reportable 12/09/16 08:41 Polychromasia Not Reportable 12/09/16 08:41 Hypochromasia Not Reportable 12/09/16 08:41 Poikilocytosis Not Reportable 12/09/16 08:41 Anisocytosis 1+ 12/09/16 08:41 Microcytosis Not Reportable 12/09/16 08:41 Macrocytosis Not Reportable 12/09/16 08:41 Spherocytes Not Reportable 12/09/16 08:41 Pappenheimer Bodies Not Reportable 12/09/16 08:41 Sickle Cells Not Reportable 12/09/16 08:41 Target Cells Not Reportable 12/09/16 08:41 Tear Drop Cells Few 12/09/16 08:41 Ovalocytes Few 12/09/16 08:41 Helmet Cells Not Reportable 12/09/16 08:41 Beltran-Scott Bodies Not Reportable 12/09/16 08:41 Clayton Rings Not Reportable 12/09/16 08:41 Dona Cells Not Reportable 12/09/16 08:41 Bite Cells Not Reportable 12/09/16 08:41 Crenated Cell Not Reportable 12/09/16 08:41 Elliptocytes Not Reportable 12/09/16 08:41 Acanthocytes (Spur) Not Reportable 12/09/16 08:41 Rouleaux Not Reportable 12/09/16 08:41 Hemoglobin C Crystals Not Reportable 12/09/16 08:41 Schistocytes Not Reportable 12/09/16 08:41 Malaria parasites Not Reportable 12/09/16 08:41 Gabe Bodies Not Reportable 12/09/16 08:41 Hem Pathologist Commnt No 12/09/16 08:41 PT 14.5 Sec. (12.2-14.9) 11/22/16 07:20 INR 1.14 (0.87-1.13) H 11/22/16 07:20 APTT 37.7 Sec. (24.2-36.6) H 11/22/16 07:37 Activated Clotting Time 175 (74-137) H 11/22/16 14:25 POC ABG pH 7.356 (7.35-7.45) 11/25/16 22:20 POC ABG pCO2 38.1 (35-45) 11/25/16 22:20 POC ABG pO2 67 (80-105) L 11/25/16 22:20 POC ABG HCO3 21.3 11/25/16 22:20 POC ABG Total CO2 22 11/25/16 22:20 POC ABG O2 Sat 92 11/25/16 22:20 POC ABG Base Excess -4 11/25/16 22:20 FiO2 32 % 11/25/16 22:20 Sodium 139 mmol/L (137-145) 12/12/16 05:58 Potassium 4.3 mmol/L (3.6-5.0) 12/12/16 05:58 Chloride 98.1 mmol/L (98-107) 12/12/16 05:58 Carbon Dioxide 27 mmol/L (22-30) 12/13/16 04:31 Anion Gap 19 mmol/L 12/12/16 05:58 BUN 17 mg/dL (7-17) 12/13/16 04:31 Creatinine 4.8 mg/dL (0.7-1.2) H 12/13/16 04:31 Estimated GFR 11 ml/min 12/13/16 04:31 BUN/Creatinine Ratio 3.54 % 12/13/16 04:31 Glucose 119 mg/dL (65-100) H 12/13/16 04:31 POC Glucose 128 (70-105) H 12/13/16 08:03 Osmolality 304 Mosm/kg 12/07/16 10:49 Lactic Acid 1.00 mmol/L (0.7-2.0) 11/26/16 06:11 Uric Acid 10.3 mg/dL (3.5-7.6) H 12/07/16 08:48 Calcium 9.4 mg/dL (8.4-10.2) 12/13/16 04:31 Total Bilirubin 1.10 mg/dL (0.1-1.2) 12/10/16 06:00 AST 25 units/L (5-40) 12/10/16 06:00 ALT 25 units/L (7-56) 12/10/16 06:00 Alkaline Phosphatase 84 units/L (35-129) 12/10/16 06:00 Total Creatine Kinase 188 units/L (30-135) H 12/07/16 08:48 CK-MB (CK-2) 2.7 ng/mL (0.0-4.0) 11/23/16 06:49 CK-MB (CK-2) Rel Index 1.4 (0-4) 11/23/16 06:49 Troponin T 0.012 ng/mL (0.00-0.029) 11/23/16 06:49 C-Reactive Protein 1.20 mg/dL (0.00-1.30) 11/25/16 13:02 Serum Total Protein 6.7 g/dL (6.1-8.1) 12/07/16 10:49 Total Protein 7.9 g/dL (6.3-8.2) 12/10/16 06:00 Albumin 5.1 g/dL (3.9-5) H 12/10/16 06:00 Albumin/Globulin Ratio 1.8 % 12/10/16 06:00 Wciud-2-Wqmjhljsq 0.3 g/dL (0.2-0.3) 12/07/16 10:49 Xmxwn-9-Tlunawhvu 0.7 g/dL (0.5-0.9) 12/07/16 10:49 Beta Globulins 0.2 g/dL (0.2-0.5) 12/07/16 10:49 Gamma Globulins 0.8 g/dL (0.8-1.7) 12/07/16 10:49 Abnorm Protein Band 1 see below 12/07/16 10:49 PEP Interpretation see below 12/07/16 10:49 TSH 0.610 mlU/mL (0.270-4.200) 11/25/16 20:44 Urine Color Yellow (Yellow) 12/07/16 17:25 Urine Turbidity Slightly-cloudy (Clear) 12/07/16 17:25 Urine pH 5.0 (5.0-7.0) 12/07/16 17:25 Ur Specific Ophiem 1.018 (1.003-1.030) 12/07/16 17:25 Urine Protein 100 mg/dl mg/dL (Negative) 12/07/16 17:25 Urine Glucose (UA) Neg mg/dL (Negative) 12/07/16 17:25 Urine Ketones Neg mg/dL (Negative) 12/07/16 17:25 Urine Blood Neg (Negative) 12/07/16 17:25 Urine Nitrite Neg (Negative) 12/07/16 17:25 Urine Bilirubin Neg (Negative) 12/07/16 17:25 Urine Urobilinogen < 2.0 mg/dL (<2.0) 12/07/16 17:25 Ur Leukocyte Esterase Neg (Negative) 12/07/16 17:25 Urine WBC (Auto) 9.0 /HPF (0.0-6.0) H 12/07/16 17:25 Urine RBC (Auto) 1.0 /HPF (0.0-6.0) 12/07/16 17:25 U Epithel Cells (Auto) 5.0 /HPF (0-13.0) 12/07/16 17:25 Urine Bacteria (Auto) 2+ /HPF (Negative) 12/04/16 14:30 Amorphous Crystals Few 12/07/16 17:25 Hyaline Casts 22 /LPF 12/07/16 17:25 Urine Eosinophils None seen (None Seen) 12/04/16 14:30 Urine Creatinine 336.8 mg/dL (0.1-20.0) H 12/07/16 17:25 Urine Sodium 13 mEq/L 12/07/16 17:25 Urine Potassium 70.20 mEq/L 11/24/16 21:57 Urine Chloride 31.3 mEq/L (110-250) L 11/24/16 21:57 BENJI Screen Negative (Negative) 12/07/16 10:49 Blood Type O POSITIVE 11/28/16 15:22 Antibody Screen TNR 11/28/16 15:22 HUDSON Antibody Screen Negative 11/28/16 15:22 Crossmatch See Detail 11/28/16 15:22
[2016-12-14 06:38] LABS: Basophils % (Auto) 0.8 % (0.0-1.8); Hemoglobin 9.7 gm/dl (10.1-14.3); Mean Corpuscular HGB Conc 32 % (30-34); Mean Corpuscular Hemoglobin 28 pg (28-32); Mean Corpuscular Volume 88 fl (79-97); Platelet Count 172 K/mm3 (140-440); Red Cell Distribution Width 14.4 % (13.2-15.2); White Blood Count 6.7 K/mm3 (4.5-11.0)
[2016-12-14 07:01] LABS: BUN/Creatinine Ratio 3.57; Calcium 8.9 mg/dL (8.4-10.2); Chloride 99.3 mmol/L (98-107); Potassium 4.2 mmol/L (3.6-5.0)
--- NOTE | 2016-12-14 08:35 | Progress Note ---
Assessment and Plan Assessment: * Oligoanuric PATRIA secondary to contrast induced nephropathy on Stage III CKD- HD initiation 12/08 --Baseline SCr 1.4mg/dL * CAD s/p LHC w/ PCI * Cardiomyopathy - EF 40-43% * Hypertension * Anemia Plan: * No evidence of renal recovery - SCr increasing between HD treatments and UOP minimal. Continue to monitor for evidence of recovery * Hemodialysis TTS schedule * Consulted vascular surgery for permcath placement * CM assisting in outpatient HD placement * Avoid potential nephrotoxins * Dose medications for renal function * Strict I/O * at bedside - updated Subjective Date of service: 12/14/16 Principal diagnosis: ascites Interval history: Patient c/o nausea. Objective - Vital Signs Vital signs: Vital Signs - 12hr 12/13/16 12/13/16 12/14/16 21:29 22:00 00:00 Temperature 98.4 F Pulse Rate 70 70 Pulse Rate [ 68 Left Radial] Respiratory 18 Rate Blood Pressure 159/79 Blood Pressure 173/86 [Left Radial Artery] O2 Sat by Pulse 98 98 Oximetry 12/14/16 04:00 Temperature 98.3 F Pulse Rate Pulse Rate [ 68 Left Radial] Respiratory 18 Rate Blood Pressure Blood Pressure 184/85 [Left Radial Artery] O2 Sat by Pulse 96 Oximetry - General Appearance General appearance: well-developed, well-nourished EENT: ATNC Respiratory: Present: Clear to Ascultation Cardiology: regular, S1S2 Gastrointestinal: no tenderness, no distended, obese Integumentary: no rash Neurologic: alert and oriented x3 Musculoskeletal: other (no edema) Psychiatric: cooperative - Lab 12/14/16 05:57 12/14/16 05:57 Most recent lab results Calcium 8.9 mg/dL (8.4-10.2) 12/14/16 05:57 Urine Creatinine 336.8 mg/dL (0.1-20.0) H 12/07/16 17:25 Urine Sodium 13 mEq/L 12/07/16 17:25
[2016-12-14] MEDS: IMDUR PO SCH (10:08)
[2016-12-14] MEDS: PROTONIX PO SCH (10:09)
[2016-12-14] MEDS: ECOTRIN PO SCH (10:09)
[2016-12-14] MEDS: PROCARDIA XL PO SCH (10:09)
[2016-12-14] MEDS: COREG PO SCH ×2 (10:09→23:23)
[2016-12-14] MEDS: PLAVIX PO SCH (10:09)
[2016-12-14] MEDS: HEPARIN SUB-Q SCH ×2 (10:10→23:23)
[2016-12-14] MEDS: EFFEXOR XR PO SCH (10:22)
--- NOTE | 2016-12-14 10:58 | Event Note ---
Date: 12/14/16 The nephrology service has requested that this patient's temporary dialysis catheter be converted into a tunneled dialysis catheter. Informed consent was obtained, and this will be performed today.
--- NOTE | 2016-12-14 11:00 | Operative Report ---
Operative Report Operative Report: Procedure: 1. Right internal jugular non-tunneled dialysis catheter placement 2. Ultrasound guided puncture of the right internal jugular vein. Date: 12/09/2016 Physician: Bob Li MD Indication: 56 year old female with renal failure, in need of dialysis. Technique: The patient was placed in the supine position and prepped and draped in the usual sterile fashion. A timeout was performed. Local anesthetic was administered. Under direct ultrasound guidance, the right internal jugular vein was accessed with a 21-gauge needle. This was exchanged over a mandrel wire for a 4 [place]ian exchange dilator. Via the exchange dilator, and 035 wire was advanced into the IVC. After serial tissue dilation, the dialysis catheter was advanced, until the tip was in the right atrium. Vacuum aspiration and flushing was performed. Each lumen was instilled with heparin. The catheter was secured to the skin with 2-0 Ethilon suture. Sterile dressings were placed, and the patient was transported from the procedure area in stable condition. Findings: 1. Ultrasound demonstrates a patent and compressible right internal jugular vein. 2. There is successful placement of a MedComp 16cm non-tunneled dialysis catheter via the right internal jugular vein. 3. Each lumen flushes and aspirates briskly. 4. Positioning of the catheter tip within the right atrium is confirmed by fluoroscopy. The catheter is ready for use.
[2016-12-14] MEDS ORDERED: XYLOCAINE 1%/ EPI 1:100,000 INFILTRATI ONE (11:01)
[2016-12-14] MEDS ORDERED: HEPARIN 10,000 UNITS/10 ML ONE (11:01)
[2016-12-14] MEDS ORDERED: VANCOMYCIN/NS 1 GM/250 ML 1 GM/250 ML BAG IV ONE (11:01)
[2016-12-14] MEDS ORDERED: HEPARIN/NS 5000 UNIT/500ML(CATH LAB) 500 ML IR ONE (11:02)
[2016-12-14] MEDS ORDERED: SUBLIMAZE ONE ×2 (11:23→11:48)
--- NOTE | 2016-12-14 12:18 | Operative Report ---
Operative Report Operative Report: Procedure: 1. Right internal jugular tunneled dialysis catheter placement 2. Right internal jugular vein temporary dialysis catheter removal Date: 12/14/2016 Physician: Bob Li MD Indication: 56 year old female with end stage renal disease, in need of dialysis. Technique: The patient was placed in the supine position and prepped and draped in the usual sterile fashion. A timeout was performed. Local anesthetic was administered. The pre-existing temporary dialysis catheter was removed over an 035 wire, which was advanced into the IVC. Attention was then turned to the right chest wall. An appropriate catheter exit site was chosen, and local anesthetic was again administered. A skin charles was made, and the catheter was tunneled under the skin from the exit site to the venotomy. After serial tissue dilation, the dialysis catheter was advanced through a peel- away sheath, until the tip was in the right atrium. Vacuum aspiration and flushing was performed. Each lumen was instilled with heparin. The catheter was secured to the skin with 2-0 Ethilon suture. The venotomy site was closed with 4-0 Monocryl , sterile dressings were placed, and the patient was transported from the procedure area in stable condition. Findings: 1. There is successful placement of a MedComp 23cm tunneled dialysis catheter via the right internal jugular vein. 2. Each lumen flushes and aspirates briskly. 3. Positioning of the catheter tip within the right atrium is confirmed by fluoroscopy. The catheter is ready for use.
--- NOTE | 2016-12-14 14:00 | Progress Note ---
Assessment and Plan Altered mental status -resolved Head CT shows no acute intracranial process Volume overload Hyperkalemia -resolved Coronary artery disease with prior CABG Right and LHC findings: moderate to severe elevated left and right heart filling pressures; moderate to severe pulmonary HTN 3 vessel disease ESTRADA to LAD patent SVG x 2 occluded (Diag and OM) subtotal occlusion of proximal segment of SVG to RCA treated with a drug eluting stent EF 40-45% Acute renal failure secondary to contrast nephropathy initiated on dialysis Acute drop in H&H s/p blood transfusion Ischemic Cardiomyopathy Hypertension Deconditioning Continue medical therapy for coronary artery disease, including dual oral antiplatelet therapy for recent coronary stent. Subjective Date of service: 12/14/16 Principal diagnosis: ascites Interval history: Patient has no chest pain or shortness of breath. Objective Vital Signs Temp Pulse Pulse Resp BP BP Pulse Ox 12/14/16 10:09 68 172/76 12/14/16 10:08 68 172/76 12/14/16 09:14 98.7 F 68 18 172/76 100 12/14/16 04:00 98.3 F 68 18 184/85 96 12/14/16 00:00 98.4 F 68 18 173/86 98 12/13/16 22:00 70 98 12/13/16 21:29 70 159/79 12/13/16 19:48 98.6 F 71 18 159/79 98 12/13/16 18:51 97.5 F L 68 18 165/77 95 - Physical Examination General: No Apparent Distress HEENT: Positive: PERRL Neck: Positive: trachea midline Cardiac: Positive: Reg Rate and Rhythm - Labs and Meds CBC 12/14/16 Range/Units 05:57 WBC 6.7 (4.5-11.0) K/mm3 RBC 3.40 L (3.65-5.03) M/mm3 Hgb 9.7 L (10.1-14.3) gm/dl Hct 30.0 L (30.3-42.9) % Plt Count 172 (140-440) K/mm3 Lymph # 1.3 (1.2-5.4) K/mm3 Dawson # 0.8 (0.0-0.8) K/mm3 Eos # 0.2 (0.0-0.4) K/mm3 Baso # 0.1 (0.0-0.1) K/mm3 Comprehensive Metabolic Panel 12/14/16 Range/Units 05:57 Sodium 143 (137-145) mmol/L Potassium 4.2 (3.6-5.0) mmol/L Chloride 99.3 (98-107) mmol/L Carbon Dioxide 28 (22-30) mmol/L BUN 10 (7-17) mg/dL Creatinine 2.8 H (0.7-1.2) mg/dL Glucose 91 (65-100) mg/dL Calcium 8.9 (8.4-10.2) mg/dL
--- NOTE | 2016-12-14 14:20 | Progress Note ---
Assessment and Plan Assessment and plan: Patient is a 56-year-old woman with a history of CKD 3 with baseline cr of 1.8, hyperlipidemia, hypertension, CAD, CHF with ejection fraction of 40-50% in 2013 and ischemic cardiomyopathy who presented for an outpatient cardiac catheterization 11/22/16 and had PCI of SVG to RCA with 99% to 0% with 3.0 mm DE stent. Patient was admitted by Cardiology in the hospital to monitor creatinine before discharge. Repeat labs in the morning did reveal an increase in creatinine around 2.7. Patient was also lethargic with altered sensorium and was placed in the ICU for close observation. Hospitalist consulted and . She was also on nitro drip but with no fever blood pressure was adequately controlled. Subsequently the Lasix was discontinued and HERO inhibitor discontinue due to the rise in creatinine. Nephrology and pulmonology/ ccm were consulted. It was determined that the patient will benefit from dialysis. Patient was subsequent transferred out of the ICU to the floor as she remained stable. D/w Dr. Arrieta who was seeing until 12/13/16, sometime between and now, we became primary attending. I really dont know details. -Ischemic cardiomyopathy status post PCI of SVG TO RCA: Cardiology following. Continue dual antiplatelet therapy -Abdominal pain: Resolved. Likely constipation, lactulose prn and also fleet enema. no ascities noted as previously suspected, GI Consulted -Acute kidney injury on chronic kidney disease stage III likely contrast nephropathy.-Creatinine 1 back up to 3 with no clear evidence of renal recovery. Still a little uric, Nephrology following. PER Nephrology no ACEI OR ARBS on DISCHARGE. -Acute toxic Metabolic encephalopathy- Resolved CT of the brain negative. -Acute blood loss anemia- S/P 2 units packed red blood cell transfusion. Hemoglobin is stable. We'll check intermittent. No GI bleed noted. -Hypertension- Stable -Anasarca-improved. Patient was initially treated with IV Lasix and albumin this has been since discontinued. Expect improvement with dialysis. -Moderate to severe pulmonary hypertension- cardiology following. -DVT and GI prophylaxis -Plan of care discussed in detail with the patient and (over the phone per wishes). Awaiting to see if she has progressed to ESRD to setup outpt Hemodialysis History Interval history: Patient seen and examined. Follow up on acute renal failure. Overnight uneventful. No cp, sob, n/v or severe headaches. Imaging, old records, testing, labs, nursing notes reviewed. Hospitalist Physical - Physical exam Narrative exam: GEN: WDWN, NAD, AWAKE, ALERT, ORIENTATED x 3 CVS: RRR, NORMAL S1S2 LUNGS/CHEST: NORMAL CHEST EXPANSION B, GOOD AIR ENTRY B ABD: SOFT, NTND, GBS, NO REBOUND OR GUARDING MSK: FROM X 4 EXTREMITIES NEURO: CN 2-12 GROSSLY INTACT except left eye blindness, NO new FOCAL DEFICITS PSY: CALM - Constitutional Vitals: Temp Pulse Resp BP Pulse Ox 98.7 F 68 18 172/76 100 12/14/16 09:14 12/14/16 10:09 12/14/16 09:14 12/14/16 10:09 12/14/16 09:14 General appearance: Present: no acute distress Results - Labs CBC & Chem 7: 12/14/16 05:57 12/14/16 05:57 Labs: Laboratory Last Values WBC 6.7 K/mm3 (4.5-11.0) 12/14/16 05:57 RBC 3.40 M/mm3 (3.65-5.03) L 12/14/16 05:57 Hgb 9.7 gm/dl (10.1-14.3) L 12/14/16 05:57 Hct 30.0 % (30.3-42.9) L 12/14/16 05:57 MCV 88 fl (79-97) 12/14/16 05:57 MCH 28 pg (28-32) 12/14/16 05:57 MCHC 32 % (30-34) 12/14/16 05:57 RDW 14.4 % (13.2-15.2) 12/14/16 05:57 Plt Count 172 K/mm3 (140-440) 12/14/16 05:57 Lymph % (Auto) 19.2 % (13.4-35.0) 12/14/16 05:57 [place] % (Auto) 11.2 % (0.0-7.3) H 12/14/16 05:57 Eos % (Auto) 3.0 % (0.0-4.3) 12/14/16 05:57 Baso % (Auto) 0.8 % (0.0-1.8) 12/14/16 05:57 Lymph # 1.3 K/mm3 (1.2-5.4) 12/14/16 05:57 Waller # 0.8 K/mm3 (0.0-0.8) 12/14/16 05:57 Eos # 0.2 K/mm3 (0.0-0.4) 12/14/16 05:57 Baso # 0.1 K/mm3 (0.0-0.1) 12/14/16 05:57 Add Manual Diff Complete 12/09/16 08:41 Total Counted 100 12/09/16 08:41 Seg Neutrophils % 65.8 % (40.0-70.0) 12/14/16 05:57 Seg Neuts % (Manual) 75.0 % (40.0-70.0) H 12/09/16 08:41 Band Neutrophils % 0 % 12/09/16 08:41 Lymphocytes % (Manual) 13.0 % (13.4-35.0) L 12/09/16 08:41 Reactive Lymphs % (Man) 0 % 12/09/16 08:41 Monocytes % (Manual) 8.0 % (0.0-7.3) H 12/09/16 08:41 Eosinophils % (Manual) 3.0 % (0.0-4.3) 12/09/16 08:41 Basophils % (Manual) 1.0 % (0.0-1.8) 12/09/16 08:41 Metamyelocytes % 0 % 12/09/16 08:41 Myelocytes % 0 % 12/09/16 08:41 Promyelocytes % 0 % 12/09/16 08:41 Blast Cells % 0 % 12/09/16 08:41 Nucleated RBC % Not Reportable 12/09/16 08:41 Seg Neutrophils # 4.4 K/mm3 (1.8-7.7) 12/14/16 05:57 Seg Neutrophils # Man 3.8 K/mm3 (1.8-7.7) 12/09/16 08:41 Band Neutrophils # 0.0 K/mm3 12/09/16 08:41 Lymphocytes # (Manual) 0.7 K/mm3 (1.2-5.4) L 12/09/16 08:41 Abs React Lymphs (Man) 0.0 K/mm3 12/09/16 08:41 Monocytes # (Manual) 0.4 K/mm3 (0.0-0.8) 12/09/16 08:41 Eosinophils # (Manual) 0.2 K/mm3 (0.0-0.4) 12/09/16 08:41 Basophils # (Manual) 0.1 K/mm3 (0.0-0.1) 12/09/16 08:41 Metamyelocytes # 0.0 K/mm3 12/09/16 08:41 Myelocytes # 0.0 K/mm3 12/09/16 08:41 Promyelocytes # 0.0 K/mm3 12/09/16 08:41 Blast Cells # 0.0 K/mm3 12/09/16 08:41 WBC Morphology Not Reportable 12/09/16 08:41 Hypersegmented Neuts Not Reportable 12/09/16 08:41 Hyposegmented Neuts Not Reportable 12/09/16 08:41 Hypogranular Neuts Not Reportable 12/09/16 08:41 Smudge Cells Not Reportable 12/09/16 08:41 Toxic Granulation Not Reportable 12/09/16 08:41 Toxic Vacuolation Not Reportable 12/09/16 08:41 Dohle Bodies Not Reportable 12/09/16 08:41 Pelger-Huet Anomaly Not Reportable 12/09/16 08:41 Rich Rods Not Reportable 12/09/16 08:41 Platelet Estimate Appears normal 12/09/16 08:41 Clumped Platelets Not Reportable 12/09/16 08:41 Plt Clumps, EDTA Not Reportable 12/09/16 08:41 Large Platelets Not Reportable 12/09/16 08:41 Giant Platelets Not Reportable 12/09/16 08:41 Platelet Satelliting Not Reportable 12/09/16 08:41 Plt Morphology Comment Not Reportable 12/09/16 08:41 RBC Morphology Not Reportable 12/09/16 08:41 Dimorphic RBCs Not Reportable 12/09/16 08:41 Polychromasia Not Reportable 12/09/16 08:41 Hypochromasia Not Reportable 12/09/16 08:41 Poikilocytosis Not Reportable 12/09/16 08:41 Anisocytosis 1+ 12/09/16 08:41 Microcytosis Not Reportable 12/09/16 08:41 Macrocytosis Not Reportable 12/09/16 08:41 Spherocytes Not Reportable 12/09/16 08:41 Pappenheimer Bodies Not Reportable 12/09/16 08:41 Sickle Cells Not Reportable 12/09/16 08:41 Target Cells Not Reportable 12/09/16 08:41 Tear Drop Cells Few 12/09/16 08:41 Ovalocytes Few 12/09/16 08:41 Helmet Cells Not Reportable 12/09/16 08:41 [place] Bodies Not Reportable 12/09/16 08:41 [place] Rings Not Reportable 12/09/16 08:41 Dona Cells Not Reportable 12/09/16 08:41 Bite Cells Not Reportable 12/09/16 08:41 Crenated Cell Not Reportable 12/09/16 08:41 Elliptocytes Not Reportable 12/09/16 08:41 Acanthocytes (Spur) Not Reportable 12/09/16 08:41 Rouleaux Not Reportable 12/09/16 08:41 Hemoglobin C Crystals Not Reportable 12/09/16 08:41 Schistocytes Not Reportable 12/09/16 08:41 Malaria parasites Not Reportable 12/09/16 08:41 Gabe Bodies Not Reportable 12/09/16 08:41 Hem Pathologist Commnt No 12/09/16 08:41 PT 14.5 Sec. (12.2-14.9) 11/22/16 07:20 INR 1.14 (0.87-1.13) H 11/22/16 07:20 APTT 37.7 Sec. (24.2-36.6) H 11/22/16 07:37 Activated Clotting Time 175 (74-137) H 11/22/16 14:25 POC ABG pH 7.356 (7.35-7.45) 11/25/16 22:20 POC ABG pCO2 38.1 (35-45) 11/25/16 22:20 POC ABG pO2 67 (80-105) L 11/25/16 22:20 POC ABG HCO3 21.3 11/25/16 22:20 POC ABG Total CO2 22 11/25/16 22:20 POC ABG O2 Sat 92 11/25/16 22:20 POC ABG Base Excess -4 11/25/16 22:20 FiO2 32 % 11/25/16 22:20 Sodium 143 mmol/L (137-145) 12/14/16 05:57 Potassium 4.2 mmol/L (3.6-5.0) 12/14/16 05:57 Chloride 99.3 mmol/L (98-107) 12/14/16 05:57 Carbon Dioxide 28 mmol/L (22-30) 12/14/16 05:57 Anion Gap 20 mmol/L 12/14/16 05:57 BUN 10 mg/dL (7-17) 12/14/16 05:57 Creatinine 2.8 mg/dL (0.7-1.2) H 12/14/16 05:57 Estimated GFR 21 ml/min 12/14/16 05:57 BUN/Creatinine Ratio 3.57 % 12/14/16 05:57 Glucose 91 mg/dL (65-100) 12/14/16 05:57 POC Glucose 158 (70-105) H 12/13/16 21:37 Osmolality 304 Mosm/kg 12/07/16 10:49 Lactic Acid 1.00 mmol/L (0.7-2.0) 11/26/16 06:11 Uric Acid 10.3 mg/dL (3.5-7.6) H 12/07/16 08:48 Calcium 8.9 mg/dL (8.4-10.2) 12/14/16 05:57 Total Bilirubin 1.10 mg/dL (0.1-1.2) 12/10/16 06:00 AST 25 units/L (5-40) 12/10/16 06:00 ALT 25 units/L (7-56) 12/10/16 06:00 Alkaline Phosphatase 84 units/L (35-129) 12/10/16 06:00 Total Creatine Kinase 188 units/L (30-135) H 12/07/16 08:48 CK-MB (CK-2) 2.7 ng/mL (0.0-4.0) 11/23/16 06:49 CK-MB (CK-2) Rel Index 1.4 (0-4) 11/23/16 06:49 Troponin T 0.012 ng/mL (0.00-0.029) 11/23/16 06:49 C-Reactive Protein 1.20 mg/dL (0.00-1.30) 11/25/16 13:02 Serum Total Protein 6.7 g/dL (6.1-8.1) 12/07/16 10:49 Total Protein 7.9 g/dL (6.3-8.2) 12/10/16 06:00 Albumin 5.1 g/dL (3.9-5) H 12/10/16 06:00 Albumin/Globulin Ratio 1.8 % 12/10/16 06:00 Jgmql-1-Azowfmuoi 0.3 g/dL (0.2-0.3) 12/07/16 10:49 Fhgxj-2-Bchpihdbf 0.7 g/dL (0.5-0.9) 12/07/16 10:49 Beta Globulins 0.2 g/dL (0.2-0.5) 12/07/16 10:49 Gamma Globulins 0.8 g/dL (0.8-1.7) 12/07/16 10:49 Abnorm Protein Band 1 see below 12/07/16 10:49 PEP Interpretation see below 12/07/16 10:49 TSH 0.610 mlU/mL (0.270-4.200) 11/25/16 20:44 Urine Color Yellow (Yellow) 12/07/16 17:25 Urine Turbidity Slightly-cloudy (Clear) 12/07/16 17:25 Urine pH 5.0 (5.0-7.0) 12/07/16 17:25 Ur Specific [place] 1.018 (1.003-1.030) 12/07/16 17:25 Urine Protein 100 mg/dl mg/dL (Negative) 12/07/16 17:25 Urine Glucose (UA) Neg mg/dL (Negative) 12/07/16 17:25 Urine Ketones Neg mg/dL (Negative) 12/07/16 17:25 Urine Blood Neg (Negative) 12/07/16 17:25 Urine Nitrite Neg (Negative) 12/07/16 17:25 Urine Bilirubin Neg (Negative) 12/07/16 17:25 Urine Urobilinogen < 2.0 mg/dL (<2.0) 12/07/16 17:25 Ur Leukocyte Esterase Neg (Negative) 12/07/16 17:25 Urine WBC (Auto) 9.0 /HPF (0.0-6.0) H 12/07/16 17:25 Urine RBC (Auto) 1.0 /HPF (0.0-6.0) 12/07/16 17:25 U Epithel Cells (Auto) 5.0 /HPF (0-13.0) 12/07/16 17:25 Urine Bacteria (Auto) 2+ /HPF (Negative) 12/04/16 14:30 Amorphous Crystals Few 12/07/16 17:25 Hyaline Casts 22 /LPF 12/07/16 17:25 Urine Eosinophils None seen (None Seen) 12/04/16 14:30 Urine Creatinine 336.8 mg/dL (0.1-20.0) H 12/07/16 17:25 Urine Sodium 13 mEq/L 12/07/16 17:25 Urine Potassium 70.20 mEq/L 11/24/16 21:57 Urine Chloride 31.3 mEq/L (110-250) L 11/24/16 21:57 BENJI Screen Negative (Negative) 12/07/16 10:49 Blood Type O POSITIVE 11/28/16 15:22 Antibody Screen TNR 11/28/16 15:22 HUDSON Antibody Screen Negative 11/28/16 15:22 Crossmatch See Detail 11/28/16 15:22
[2016-12-14] MEDS ORDERED: DULCOLAX PR ONE (15:00)
[2016-12-14] MEDS: TYLENOL PO PRN ×2 (16:14→19:46)
--- NOTE | 2016-12-14 19:18 | Progress Note ---
Assessment and Plan Patient Sleeping at this time.. No acute respiratory distress..Patient is on room air and O2 saturation 100%. - Patient Problems (1) PATRIA (acute kidney injury) Current Visit: Yes Status: Acute Plan to address problem: Patient has dialysis today. Management as per nephrology. (2) Acute encephalopathy Current Visit: Yes Status: Acute Plan to address problem: Patient more alert. Encephalopathy improving. (3) Anemia Current Visit: Yes Status: Acute Qualifiers: Anemia type: A Iron deficiency anemia type: I Vitamin B12 deficiency anemia type: V Folate deficiency anemia type: F Bone marrow failure anemia type: B Hemolytic anemia type: H Other causes of anemia: O Chronic kidney disease stage: C Plan to address problem: Management as per primary care. (4) CAD (coronary artery disease) of artery bypass graft Current Visit: Yes Status: Acute Qualifiers: [place] vs. transplanted heart: N Associated angina: A Plan to address problem: Management as per cardiology. (5) Obesity (BMI 30-39.9) Current Visit: Yes Status: Acute Plan to address problem: Weight reduction diet. (6) Sleep apnea Current Visit: Yes Status: Acute Qualifiers: Sleep apnea type: S Plan to address problem: Possible sleep apnea. BIPAP standby in the room. Recommend sleep study as out patient. Subjective Date of service: 12/14/16 Principal diagnosis: ascites Interval history: Patient Sleeping at this time.. No acute respiratory distress..Patient is on room air and O2 saturation 100%. Objective Vital Signs - 12hr 12/14/16 12/14/16 12/14/16 09:14 10:08 10:09 Temperature 98.7 F Pulse Rate 68 68 Pulse Rate [ 68 Left Radial] Respiratory 18 Rate Blood Pressure 172/76 172/76 Blood Pressure 172/76 [Left Radial Artery] O2 Sat by Pulse 100 Oximetry 12/14/16 12/14/16 17:39 18:35 Temperature 99.0 F Pulse Rate 69 Pulse Rate [ 68 Left Radial] Respiratory 18 Rate Blood Pressure Blood Pressure 135/65 [Left Radial Artery] O2 Sat by Pulse 100 Oximetry Constitutional: no acute distress, asleep Eyes: non-icteric ENT: oropharynx moist Neck: supple, no lymphadenopathy Effort: normal Ascultation: Bilateral: diminished breath sounds, rales (scant in posterior bases) Cardiovascular: regular rate and rhythm Gastrointestinal: normoactive bowel sounds, soft, non-tender, non-distended Integumentary: normal Extremities: no cyanosis, no edema, pulses normal, no ischemia or petechiae Neurologic: normal mental status, non-focal exam, pupils equal and round, motor strength normal and Psychiatric: depressed CBC and BMP: 12/14/16 05:57 12/14/16 05:57 ABG, PT/INR, D-dimer: ABG POC ABG pH 7.356 (7.35-7.45) 11/25/16 22:20 POC ABG pCO2 38.1 (35-45) 11/25/16 22:20 POC ABG pO2 67 (80-105) L 11/25/16 22:20 POC ABG HCO3 21.3 11/25/16 22:20 POC ABG Total CO2 22 11/25/16 22:20 POC ABG O2 Sat 92 11/25/16 22:20 PT/INR, D-dimer PT 14.5 Sec. (12.2-14.9) 11/22/16 07:20 INR 1.14 (0.87-1.13) H 11/22/16 07:20 Abnormal lab findings: Abnormal Labs 11/22/16 11/22/16 11/22/16 07:20 07:20 07:20 WBC RBC 3.52 L Hgb Hct Plt Count Lymph % (Auto) [place] % (Auto) 11.5 H Eos % (Auto) Lymph # Seg Neutrophils % Seg Neuts % (Manual) Lymphocytes % (Manual) Monocytes % (Manual) Lymphocytes # (Manual) INR 1.14 H APTT Activated Clotting Time POC ABG pH POC ABG pO2 Sodium Potassium Chloride 108.0 H Carbon Dioxide BUN 25 H Creatinine 1.4 H Glucose POC Glucose Uric Acid Calcium AST ALT Total Creatine Kinase Albumin Urine WBC (Auto) Urine Creatinine Urine Chloride Crossmatch 11/22/16 11/22/16 11/22/16 07:37 10:46 13:13 WBC RBC Hgb Hct Plt Count Lymph % (Auto) [place] % (Auto) Eos % (Auto) Lymph # Seg Neutrophils % Seg Neuts % (Manual) Lymphocytes % (Manual) Monocytes % (Manual) Lymphocytes # (Manual) INR APTT 37.7 H Activated Clotting Time 327 H 202 H POC ABG pH POC ABG pO2 Sodium Potassium Chloride Carbon Dioxide BUN Creatinine Glucose POC Glucose Uric Acid Calcium AST ALT Total Creatine Kinase Albumin Urine WBC (Auto) Urine Creatinine Urine Chloride Crossmatch 11/22/16 11/23/16 11/23/16 14:25 06:49 06:49 WBC 4.1 L RBC 2.74 L Hgb 7.7 L Hct 23.8 L D Plt Count 135 L Lymph % (Auto) [place] % (Auto) 13.8 H Eos % (Auto) Lymph # Seg Neutrophils % Seg Neuts % (Manual) Lymphocytes % (Manual) Monocytes % (Manual) Lymphocytes # (Manual) INR APTT Activated Clotting Time 175 H POC ABG pH POC ABG pO2 Sodium Potassium Chloride Carbon Dioxide BUN 27 H Creatinine 1.8 H Glucose 137 H POC Glucose Uric Acid Calcium 8.0 L AST ALT Total Creatine Kinase 183 H Albumin Urine WBC (Auto) Urine Creatinine Urine Chloride Crossmatch 11/23/16 11/23/16 11/23/16 11:07 12:45 17:32 WBC RBC 2.98 L Hgb 8.5 L Hct 26.3 L Plt Count Lymph % (Auto) [place] % (Auto) 13.2 H Eos % (Auto) Lymph # Seg Neutrophils % Seg Neuts % (Manual) Lymphocytes % (Manual) Monocytes % (Manual) Lymphocytes # (Manual) INR APTT Activated Clotting Time POC ABG pH POC ABG pO2 Sodium Potassium Chloride Carbon Dioxide BUN Creatinine Glucose POC Glucose 134 H 171 H Uric Acid Calcium AST ALT Total Creatine Kinase Albumin Urine WBC (Auto) Urine Creatinine Urine Chloride Crossmatch 11/23/16 11/24/16 11/24/16 21:24 05:28 05:28 WBC RBC Hgb 8.6 L Hct 26.8 L Plt Count Lymph % (Auto) [place] % (Auto) Eos % (Auto) Lymph # Seg Neutrophils % Seg Neuts % (Manual) Lymphocytes % (Manual) Monocytes % (Manual) Lymphocytes # (Manual) INR APTT Activated Clotting Time POC ABG pH POC ABG pO2 Sodium Potassium 5.9 H D Chloride Carbon Dioxide 19 L BUN 33 H Creatinine 2.7 H Glucose 162 H POC Glucose 174 H Uric Acid Calcium AST ALT Total Creatine Kinase Albumin Urine WBC (Auto) Urine Creatinine Urine Chloride Crossmatch 11/24/16 11/24/16 11/24/16 06:23 07:05 07:09 WBC RBC Hgb Hct Plt Count Lymph % (Auto) [place] % (Auto) Eos % (Auto) Lymph # Seg Neutrophils % Seg Neuts % (Manual) Lymphocytes % (Manual) Monocytes % (Manual) Lymphocytes # (Manual) INR APTT Activated Clotting Time POC ABG pH 7.264 L POC ABG pO2 33 L Sodium Potassium 5.8 H Chloride Carbon Dioxide 20 L BUN 33 H Creatinine 2.8 H Glucose 158 H POC Glucose 209 H Uric Acid Calcium AST 100 H ALT 118 H Total Creatine Kinase Albumin 3.5 L Urine WBC (Auto) Urine Creatinine Urine Chloride Crossmatch 11/24/16 11/24/16 11/24/16 07:19 08:50 11:45 WBC RBC Hgb Hct Plt Count Lymph % (Auto) [place] % (Auto) Eos % (Auto) Lymph # Seg Neutrophils % Seg Neuts % (Manual) Lymphocytes % (Manual) Monocytes % (Manual) Lymphocytes # (Manual) INR APTT Activated Clotting Time POC ABG pH 7.285 L POC ABG pO2 64 L Sodium Potassium Chloride Carbon Dioxide BUN Creatinine Glucose POC Glucose 193 H 169 H Uric Acid Calcium AST ALT Total Creatine Kinase Albumin Urine WBC (Auto) Urine Creatinine Urine Chloride Crossmatch 11/24/16 11/24/16 11/24/16 15:24 15:32 17:14 WBC RBC Hgb Hct Plt Count Lymph % (Auto) [place] % (Auto) Eos % (Auto) Lymph # Seg Neutrophils % Seg Neuts % (Manual) Lymphocytes % (Manual) Monocytes % (Manual) Lymphocytes # (Manual) INR APTT Activated Clotting Time POC ABG pH POC ABG pO2 Sodium Potassium 5.2 H Chloride Carbon Dioxide 20 L BUN 37 H Creatinine 3.0 H Glucose 144 H POC Glucose 195 H Uric Acid Calcium AST ALT Total Creatine Kinase Albumin Urine WBC (Auto) Urine Creatinine Urine Chloride Crossmatch See Detail 11/24/16 11/24/16 11/25/16 21:57 23:39 05:30 WBC RBC Hgb Hct Plt Count Lymph % (Auto) [place] % (Auto) Eos % (Auto) Lymph # Seg Neutrophils % Seg Neuts % (Manual) Lymphocytes % (Manual) Monocytes % (Manual) Lymphocytes # (Manual) INR APTT Activated Clotting Time POC ABG pH POC ABG pO2 Sodium Potassium Chloride Carbon Dioxide BUN Creatinine Glucose POC Glucose 112 H 129 H Uric Acid Calcium AST ALT Total Creatine Kinase Albumin Urine WBC (Auto) Urine Creatinine 295.3 H Urine Chloride 31.3 L Crossmatch 11/25/16 11/25/16 11/25/16 07:00 07:00 08:40 WBC RBC 3.30 L Hgb 9.5 L Hct 29.0 L Plt Count 119 L Lymph % (Auto) [place] % (Auto) 9.5 H Eos % (Auto) Lymph # Seg Neutrophils % 72.7 H Seg Neuts % (Manual) Lymphocytes % (Manual) Monocytes % (Manual) Lymphocytes # (Manual) INR APTT Activated Clotting Time POC ABG pH POC ABG pO2 Sodium Potassium Chloride 110.1 H Carbon Dioxide 18 L BUN 38 H Creatinine 2.6 H Glucose 123 H POC Glucose 129 H Uric Acid Calcium 8.2 L AST ALT Total Creatine Kinase Albumin Urine WBC (Auto) Urine Creatinine Urine Chloride Crossmatch 11/25/16 11/25/16 11/25/16 11:24 12:17 16:16 WBC RBC Hgb Hct Plt Count Lymph % (Auto) [place] % (Auto) Eos % (Auto) Lymph # Seg Neutrophils % Seg Neuts % (Manual) Lymphocytes % (Manual) Monocytes % (Manual) Lymphocytes # (Manual) INR APTT Activated Clotting Time POC ABG pH 7.327 L POC ABG pO2 Sodium Potassium Chloride Carbon Dioxide BUN Creatinine Glucose POC Glucose 142 H 151 H Uric Acid Calcium AST ALT Total Creatine Kinase Albumin Urine WBC (Auto) Urine Creatinine Urine Chloride Crossmatch 11/25/16 11/25/16 11/26/16 21:48 22:20 00:58 WBC RBC 3.23 L Hgb 9.2 L Hct 27.9 L Plt Count 119 L Lymph % (Auto) 10.2 L [place] % (Auto) 7.6 H Eos % (Auto) Lymph # 0.8 L Seg Neutrophils % 79.9 H Seg Neuts % (Manual) Lymphocytes % (Manual) Monocytes % (Manual) Lymphocytes # (Manual) INR APTT Activated Clotting Time POC ABG pH POC ABG pO2 67 L Sodium Potassium Chloride Carbon Dioxide BUN Creatinine Glucose POC Glucose 149 H Uric Acid Calcium AST ALT Total Creatine Kinase Albumin Urine WBC (Auto) Urine Creatinine Urine Chloride Crossmatch 11/26/16 11/26/16 11/26/16 06:11 07:40 11:28 WBC RBC Hgb Hct Plt Count Lymph % (Auto) [place] % (Auto) Eos % (Auto) Lymph # Seg Neutrophils % Seg Neuts % (Manual) Lymphocytes % (Manual) Monocytes % (Manual) Lymphocytes # (Manual) INR APTT Activated Clotting Time POC ABG pH POC ABG pO2 Sodium Potassium Chloride Carbon Dioxide 21 L BUN 41 H Creatinine 2.5 H Glucose 151 H POC Glucose 144 H 168 H Uric Acid Calcium 8.1 L AST ALT Total Creatine Kinase Albumin Urine WBC (Auto) Urine Creatinine Urine Chloride Crossmatch 11/26/16 11/27/16 11/27/16 15:50 00:03 03:45 WBC RBC Hgb Hct Plt Count Lymph % (Auto) [place] % (Auto) Eos % (Auto) Lymph # Seg Neutrophils % Seg Neuts % (Manual) Lymphocytes % (Manual) Monocytes % (Manual) Lymphocytes # (Manual) INR APTT Activated Clotting Time POC ABG pH POC ABG pO2 Sodium Potassium Chloride Carbon Dioxide BUN 46 H Creatinine 2.8 H Glucose 147 H POC Glucose 153 H 183 H Uric Acid Calcium 8.1 L AST ALT Total Creatine Kinase Albumin Urine WBC (Auto) Urine Creatinine Urine Chloride Crossmatch 11/27/16 11/27/16 11/27/16 06:26 07:32 11:53 WBC RBC Hgb Hct Plt Count Lymph % (Auto) [place] % (Auto) Eos % (Auto) Lymph # Seg Neutrophils % Seg Neuts % (Manual) Lymphocytes % (Manual) Monocytes % (Manual) Lymphocytes # (Manual) INR APTT Activated Clotting Time POC ABG pH POC ABG pO2 Sodium Potassium Chloride Carbon Dioxide BUN Creatinine Glucose POC Glucose 208 H 193 H 180 H Uric Acid Calcium AST ALT Total Creatine Kinase Albumin Urine WBC (Auto) Urine Creatinine Urine Chloride Crossmatch 11/27/16 11/27/16 11/28/16 16:42 21:51 08:13 WBC RBC Hgb Hct Plt Count Lymph % (Auto) [place] % (Auto) Eos % (Auto) Lymph # Seg Neutrophils % Seg Neuts % (Manual) Lymphocytes % (Manual) Monocytes % (Manual) Lymphocytes # (Manual) INR APTT Activated Clotting Time POC ABG pH POC ABG pO2 Sodium Potassium Chloride Carbon Dioxide BUN Creatinine Glucose POC Glucose 161 H 167 H 151 H Uric Acid Calcium AST ALT Total Creatine Kinase Albumin Urine WBC (Auto) Urine Creatinine Urine Chloride Crossmatch 11/28/16 11/28/16 11/28/16 10:01 10:01 12:30 WBC RBC Hgb 8.5 L Hct 25.3 L Plt Count Lymph % (Auto) [place] % (Auto) Eos % (Auto) Lymph # Seg Neutrophils % Seg Neuts % (Manual) Lymphocytes % (Manual) Monocytes % (Manual) Lymphocytes # (Manual) INR APTT Activated Clotting Time POC ABG pH POC ABG pO2 Sodium 136 L Potassium Chloride Carbon Dioxide BUN 50 H Creatinine 2.8 H Glucose 143 H POC Glucose 154 H Uric Acid Calcium 8.1 L AST ALT Total Creatine Kinase Albumin Urine WBC (Auto) Urine Creatinine Urine Chloride Crossmatch 11/28/16 11/28/16 11/28/16 15:22 16:55 20:40 WBC RBC Hgb Hct Plt Count Lymph % (Auto) [place] % (Auto) Eos % (Auto) Lymph # Seg Neutrophils % Seg Neuts % (Manual) Lymphocytes % (Manual) Monocytes % (Manual) Lymphocytes # (Manual) INR APTT Activated Clotting Time POC ABG pH POC ABG pO2 Sodium Potassium Chloride Carbon Dioxide BUN Creatinine Glucose POC Glucose 191 H 177 H Uric Acid Calcium AST ALT Total Creatine Kinase Albumin Urine WBC (Auto) Urine Creatinine Urine Chloride Crossmatch See Detail 11/29/16 11/29/16 11/29/16 07:18 07:18 07:31 WBC RBC Hgb 9.5 L Hct 28.2 L Plt Count Lymph % (Auto) [place] % (Auto) Eos % (Auto) Lymph # Seg Neutrophils % Seg Neuts % (Manual) Lymphocytes % (Manual) Monocytes % (Manual) Lymphocytes # (Manual) INR APTT Activated Clotting Time POC ABG pH POC ABG pO2 Sodium 136 L Potassium Chloride Carbon Dioxide BUN 51 H Creatinine 2.7 H Glucose 120 H POC Glucose 127 H Uric Acid Calcium 8.1 L AST ALT Total Creatine Kinase Albumin Urine WBC (Auto) Urine Creatinine Urine Chloride Crossmatch 11/29/16 11/29/16 11/29/16 12:49 17:35 20:31 WBC RBC Hgb Hct Plt Count Lymph % (Auto) [place] % (Auto) Eos % (Auto) Lymph # Seg Neutrophils % Seg Neuts % (Manual) Lymphocytes % (Manual) Monocytes % (Manual) Lymphocytes # (Manual) INR APTT Activated Clotting Time POC ABG pH POC ABG pO2 Sodium Potassium Chloride Carbon Dioxide BUN Creatinine Glucose POC Glucose 213 H 179 H 154 H Uric Acid Calcium AST ALT Total Creatine Kinase Albumin Urine WBC (Auto) Urine Creatinine Urine Chloride Crossmatch 11/30/16 11/30/16 11/30/16 08:25 09:52 16:07 WBC RBC Hgb Hct Plt Count Lymph % (Auto) [place] % (Auto) Eos % (Auto) Lymph # Seg Neutrophils % Seg Neuts % (Manual) Lymphocytes % (Manual) Monocytes % (Manual) Lymphocytes # (Manual) INR APTT Activated Clotting Time POC ABG pH POC ABG pO2 Sodium Potassium Chloride Carbon Dioxide BUN 52 H Creatinine 3.0 H Glucose 156 H POC Glucose 127 H 216 H Uric Acid Calcium AST ALT Total Creatine Kinase Albumin Urine WBC (Auto) Urine Creatinine Urine Chloride Crossmatch 11/30/16 12/01/16 12/01/16 20:45 08:34 08:48 WBC RBC Hgb Hct Plt Count Lymph % (Auto) [place] % (Auto) Eos % (Auto) Lymph # Seg Neutrophils % Seg Neuts % (Manual) Lymphocytes % (Manual) Monocytes % (Manual) Lymphocytes # (Manual) INR APTT Activated Clotting Time POC ABG pH POC ABG pO2 Sodium 136 L Potassium Chloride Carbon Dioxide BUN 50 H Creatinine 3.0 H Glucose 124 H POC Glucose 197 H 136 H Uric Acid Calcium AST ALT Total Creatine Kinase Albumin Urine WBC (Auto) Urine Creatinine Urine Chloride Crossmatch 12/01/16 12/01/16 12/01/16 11:35 16:56 22:08 WBC RBC Hgb Hct Plt Count Lymph % (Auto) [place] % (Auto) Eos % (Auto) Lymph # Seg Neutrophils % Seg Neuts % (Manual) Lymphocytes % (Manual) Monocytes % (Manual) Lymphocytes # (Manual) INR APTT Activated Clotting Time POC ABG pH POC ABG pO2 Sodium Potassium Chloride Carbon Dioxide BUN Creatinine Glucose POC Glucose 205 H 210 H 157 H Uric Acid Calcium AST ALT Total Creatine Kinase Albumin Urine WBC (Auto) Urine Creatinine Urine Chloride Crossmatch 12/02/16 12/02/16 12/02/16 05:52 08:47 15:16 WBC RBC Hgb Hct Plt Count Lymph % (Auto) [place] % (Auto) Eos % (Auto) Lymph # Seg Neutrophils % Seg Neuts % (Manual) Lymphocytes % (Manual) Monocytes % (Manual) Lymphocytes # (Manual) INR APTT Activated Clotting Time POC ABG pH POC ABG pO2 Sodium Potassium Chloride Carbon Dioxide BUN 48 H Creatinine 2.7 H Glucose 136 H POC Glucose 134 H 226 H Uric Acid Calcium AST ALT Total Creatine Kinase Albumin Urine WBC (Auto) Urine Creatinine Urine Chloride Crossmatch 12/02/16 12/03/16 12/03/16 22:53 05:58 05:58 WBC 4.2 L RBC 3.37 L Hgb 9.7 L Hct 29.4 L Plt Count Lymph % (Auto) [place] % (Auto) Eos % (Auto) Lymph # Seg Neutrophils % Seg Neuts % (Manual) Lymphocytes % (Manual) Monocytes % (Manual) Lymphocytes # (Manual) INR APTT Activated Clotting Time POC ABG pH POC ABG pO2 Sodium Potassium Chloride Carbon Dioxide BUN 47 H Creatinine 2.7 H Glucose 142 H POC Glucose 235 H Uric Acid Calcium AST ALT Total Creatine Kinase Albumin Urine WBC (Auto) Urine Creatinine Urine Chloride Crossmatch 12/03/16 12/03/16 12/03/16 13:04 16:47 21:50 WBC RBC Hgb Hct Plt Count Lymph % (Auto) [place] % (Auto) Eos % (Auto) Lymph # Seg Neutrophils % Seg Neuts % (Manual) Lymphocytes % (Manual) Monocytes % (Manual) Lymphocytes # (Manual) INR APTT Activated Clotting Time POC ABG pH POC ABG pO2 Sodium Potassium Chloride Carbon Dioxide BUN Creatinine Glucose POC Glucose 135 H 140 H 170 H Uric Acid Calcium AST ALT Total Creatine Kinase Albumin Urine WBC (Auto) Urine Creatinine Urine Chloride Crossmatch 12/04/16 12/04/16 12/04/16 07:26 12:21 16:43 WBC RBC Hgb Hct Plt Count Lymph % (Auto) [place] % (Auto) Eos % (Auto) Lymph # Seg Neutrophils % Seg Neuts % (Manual) Lymphocytes % (Manual) Monocytes % (Manual) Lymphocytes # (Manual) INR APTT Activated Clotting Time POC ABG pH POC ABG pO2 Sodium Potassium Chloride Carbon Dioxide BUN Creatinine Glucose POC Glucose 145 H 203 H 210 H Uric Acid Calcium AST ALT Total Creatine Kinase Albumin Urine WBC (Auto) Urine Creatinine Urine Chloride Crossmatch 12/04/16 12/05/16 12/05/16 21:41 07:54 07:54 WBC RBC 3.10 L Hgb 9.0 L Hct 26.9 L Plt Count Lymph % (Auto) [place] % (Auto) 13.8 H Eos % (Auto) 5.3 H Lymph # 1.1 L Seg Neutrophils % Seg Neuts % (Manual) Lymphocytes % (Manual) Monocytes % (Manual) Lymphocytes # (Manual) INR APTT Activated Clotting Time POC ABG pH POC ABG pO2 Sodium Potassium Chloride Carbon Dioxide BUN 51 H Creatinine 3.7 H Glucose 132 H POC Glucose 211 H Uric Acid Calcium AST ALT Total Creatine Kinase Albumin Urine WBC (Auto) Urine Creatinine Urine Chloride Crossmatch 12/05/16 12/05/16 12/05/16 08:30 11:46 22:02 WBC RBC Hgb Hct Plt Count Lymph % (Auto) [place] % (Auto) Eos % (Auto) Lymph # Seg Neutrophils % Seg Neuts % (Manual) Lymphocytes % (Manual) Monocytes % (Manual) Lymphocytes # (Manual) INR APTT Activated Clotting Time POC ABG pH POC ABG pO2 Sodium Potassium Chloride Carbon Dioxide BUN Creatinine Glucose POC Glucose 140 H 225 H 165 H Uric Acid Calcium AST ALT Total Creatine Kinase Albumin Urine WBC (Auto) Urine Creatinine Urine Chloride Crossmatch 12/06/16 12/06/16 12/06/16 08:17 09:10 09:10 WBC RBC Hgb Hct Plt Count Lymph % (Auto) [place] % (Auto) Eos % (Auto) Lymph # Seg Neutrophils % Seg Neuts % (Manual) Lymphocytes % (Manual) Monocytes % (Manual) Lymphocytes # (Manual) INR APTT Activated Clotting Time POC ABG pH POC ABG pO2 Sodium Potassium Chloride 97.6 L Carbon Dioxide BUN 50 H Creatinine 3.8 H Glucose 126 H POC Glucose 166 H Uric Acid 10.0 H Calcium AST ALT Total Creatine Kinase Albumin Urine WBC (Auto) Urine Creatinine Urine Chloride Crossmatch 12/06/16 12/06/16 12/06/16 12:18 17:39 22:31 WBC RBC Hgb Hct Plt Count Lymph % (Auto) [place] % (Auto) Eos % (Auto) Lymph # Seg Neutrophils % Seg Neuts % (Manual) Lymphocytes % (Manual) Monocytes % (Manual) Lymphocytes # (Manual) INR APTT Activated Clotting Time POC ABG pH POC ABG pO2 Sodium Potassium Chloride Carbon Dioxide BUN Creatinine Glucose POC Glucose 188 H 176 H 157 H Uric Acid Calcium AST ALT Total Creatine Kinase Albumin Urine WBC (Auto) Urine Creatinine Urine Chloride Crossmatch 12/07/16 12/07/16 12/07/16 08:48 08:49 09:01 WBC RBC Hgb Hct Plt Count Lymph % (Auto) [place] % (Auto) Eos % (Auto) Lymph # Seg Neutrophils % Seg Neuts % (Manual) Lymphocytes % (Manual) Monocytes % (Manual) Lymphocytes # (Manual) INR APTT Activated Clotting Time POC ABG pH POC ABG pO2 Sodium Potassium Chloride 97.9 L Carbon Dioxide BUN 52 H Creatinine 4.2 H Glucose 105 H POC Glucose 107 H Uric Acid 10.3 H Calcium AST ALT Total Creatine Kinase 188 H Albumin Urine WBC (Auto) Urine Creatinine Urine Chloride Crossmatch 12/07/16 12/07/16 12/07/16 12:27 16:59 17:25 WBC RBC Hgb Hct Plt Count Lymph % (Auto) [place] % (Auto) Eos % (Auto) Lymph # Seg Neutrophils % Seg Neuts % (Manual) Lymphocytes % (Manual) Monocytes % (Manual) Lymphocytes # (Manual) INR APTT Activated Clotting Time POC ABG pH POC ABG pO2 Sodium Potassium Chloride Carbon Dioxide BUN Creatinine Glucose POC Glucose 163 H 124 H Uric Acid Calcium AST ALT Total Creatine Kinase Albumin Urine WBC (Auto) 9.0 H Urine Creatinine Urine Chloride Crossmatch 12/07/16 12/07/16 12/08/16 17:25 22:04 07:53 WBC RBC Hgb Hct Plt Count Lymph % (Auto) [place] % (Auto) Eos % (Auto) Lymph # Seg Neutrophils % Seg Neuts % (Manual) Lymphocytes % (Manual) Monocytes % (Manual) Lymphocytes # (Manual) INR APTT Activated Clotting Time POC ABG pH POC ABG pO2 Sodium Potassium Chloride Carbon Dioxide BUN Creatinine Glucose POC Glucose 133 H 168 H Uric Acid Calcium AST ALT Total Creatine Kinase Albumin Urine WBC (Auto) Urine Creatinine 336.8 H Urine Chloride Crossmatch 12/08/16 12/08/16 12/08/16 08:05 12:17 22:09 WBC RBC Hgb Hct Plt Count Lymph % (Auto) [place] % (Auto) Eos % (Auto) Lymph # Seg Neutrophils % Seg Neuts % (Manual) Lymphocytes % (Manual) Monocytes % (Manual) Lymphocytes # (Manual) INR APTT Activated Clotting Time POC ABG pH POC ABG pO2 Sodium Potassium Chloride Carbon Dioxide BUN 55 H Creatinine 5.0 H Glucose 142 H POC Glucose 140 H 154 H Uric Acid Calcium AST ALT Total Creatine Kinase Albumin Urine WBC (Auto) Urine Creatinine Urine Chloride Crossmatch 12/09/16 12/09/16 12/09/16 06:40 07:47 08:41 WBC RBC 3.09 L Hgb 8.8 L Hct 27.0 L Plt Count Lymph % (Auto) [place] % (Auto) Eos % (Auto) Lymph # Seg Neutrophils % Seg Neuts % (Manual) 75.0 H Lymphocytes % (Manual) 13.0 L Monocytes % (Manual) 8.0 H Lymphocytes # (Manual) 0.7 L INR APTT Activated Clotting Time POC ABG pH POC ABG pO2 Sodium Potassium Chloride Carbon Dioxide BUN 23 H Creatinine 3.1 H Glucose 108 H POC Glucose 115 H Uric Acid Calcium AST ALT Total Creatine Kinase Albumin Urine WBC (Auto) Urine Creatinine Urine Chloride Crossmatch 12/09/16 12/09/16 12/09/16 08:41 12:26 22:19 WBC RBC Hgb Hct Plt Count Lymph % (Auto) [place] % (Auto) Eos % (Auto) Lymph # Seg Neutrophils % Seg Neuts % (Manual) Lymphocytes % (Manual) Monocytes % (Manual) Lymphocytes # (Manual) INR APTT Activated Clotting Time POC ABG pH POC ABG pO2 Sodium Potassium Chloride Carbon Dioxide BUN 23 H Creatinine 3.0 H Glucose 108 H POC Glucose 140 H 139 H Uric Acid Calcium AST ALT Total Creatine Kinase Albumin Urine WBC (Auto) Urine Creatinine Urine Chloride Crossmatch 12/10/16 12/10/16 12/10/16 06:00 06:00 06:00 WBC RBC 3.47 L Hgb 9.8 L Hct Plt Count Lymph % (Auto) [place] % (Auto) Eos % (Auto) Lymph # Seg Neutrophils % Seg Neuts % (Manual) Lymphocytes % (Manual) Monocytes % (Manual) Lymphocytes # (Manual) INR APTT Activated Clotting Time POC ABG pH POC ABG pO2 Sodium Potassium Chloride Carbon Dioxide BUN Creatinine 1.9 H 1.9 H Glucose 120 H 120 H POC Glucose Uric Acid Calcium AST ALT Total Creatine Kinase Albumin 5.1 H Urine WBC (Auto) Urine Creatinine Urine Chloride Crossmatch 12/10/16 12/10/16 12/10/16 08:34 16:38 21:00 WBC RBC Hgb Hct Plt Count Lymph % (Auto) [place] % (Auto) Eos % (Auto) Lymph # Seg Neutrophils % Seg Neuts % (Manual) Lymphocytes % (Manual) Monocytes % (Manual) Lymphocytes # (Manual) INR APTT Activated Clotting Time POC ABG pH POC ABG pO2 Sodium Potassium Chloride Carbon Dioxide BUN Creatinine Glucose POC Glucose 137 H 109 H 155 H Uric Acid Calcium AST ALT Total Creatine Kinase Albumin Urine WBC (Auto) Urine Creatinine Urine Chloride Crossmatch 12/11/16 12/11/16 12/11/16 06:02 12:33 17:36 WBC RBC Hgb Hct Plt Count Lymph % (Auto) [place] % (Auto) Eos % (Auto) Lymph # Seg Neutrophils % Seg Neuts % (Manual) Lymphocytes % (Manual) Monocytes % (Manual) Lymphocytes # (Manual) INR APTT Activated Clotting Time POC ABG pH POC ABG pO2 Sodium Potassium Chloride 97.0 L Carbon Dioxide 31 H BUN Creatinine 2.3 H Glucose 133 H POC Glucose 131 H 145 H Uric Acid Calcium AST ALT Total Creatine Kinase Albumin Urine WBC (Auto) Urine Creatinine Urine Chloride Crossmatch 12/11/16 12/12/16 12/12/16 21:50 05:58 07:46 WBC RBC Hgb Hct Plt Count Lymph % (Auto) [place] % (Auto) Eos % (Auto) Lymph # Seg Neutrophils % Seg Neuts % (Manual) Lymphocytes % (Manual) Monocytes % (Manual) Lymphocytes # (Manual) INR APTT Activated Clotting Time POC ABG pH POC ABG pO2 Sodium Potassium Chloride Carbon Dioxide BUN Creatinine 3.5 H D Glucose 127 H POC Glucose 158 H 148 H Uric Acid Calcium AST ALT Total Creatine Kinase Albumin Urine WBC (Auto) Urine Creatinine Urine Chloride Crossmatch 12/12/16 12/12/16 12/12/16 11:42 15:55 21:56 WBC RBC Hgb Hct Plt Count Lymph % (Auto) [place] % (Auto) Eos % (Auto) Lymph # Seg Neutrophils % Seg Neuts % (Manual) Lymphocytes % (Manual) Monocytes % (Manual) Lymphocytes # (Manual) INR APTT Activated Clotting Time POC ABG pH POC ABG pO2 Sodium Potassium Chloride Carbon Dioxide BUN Creatinine Glucose POC Glucose 189 H 167 H 160 H Uric Acid Calcium AST ALT Total Creatine Kinase Albumin Urine WBC (Auto) Urine Creatinine Urine Chloride Crossmatch 12/13/16 12/13/16 12/13/16 04:31 04:31 08:03 WBC RBC 3.29 L Hgb 9.4 L Hct 28.9 L Plt Count Lymph % (Auto) [place] % (Auto) 9.2 H Eos % (Auto) Lymph # 1.1 L Seg Neutrophils % Seg Neuts % (Manual) Lymphocytes % (Manual) Monocytes % (Manual) Lymphocytes # (Manual) INR APTT Activated Clotting Time POC ABG pH POC ABG pO2 Sodium Potassium Chloride Carbon Dioxide BUN Creatinine 4.8 H Glucose 119 H POC Glucose 128 H Uric Acid Calcium AST ALT Total Creatine Kinase Albumin Urine WBC (Auto) Urine Creatinine Urine Chloride Crossmatch 12/13/16 12/14/16 12/14/16 21:37 05:57 05:57 WBC RBC 3.40 L Hgb 9.7 L Hct 30.0 L Plt Count Lymph % (Auto) [place] % (Auto) 11.2 H Eos % (Auto) Lymph # Seg Neutrophils % Seg Neuts % (Manual) Lymphocytes % (Manual) Monocytes % (Manual) Lymphocytes # (Manual) INR APTT Activated Clotting Time POC ABG pH POC ABG pO2 Sodium Potassium Chloride Carbon Dioxide BUN Creatinine 2.8 H Glucose POC Glucose 158 H Uric Acid Calcium AST ALT Total Creatine Kinase Albumin Urine WBC (Auto) Urine Creatinine Urine Chloride Crossmatch
[2016-12-14] MEDS: MORPHINE IV PRN (23:24)
[2016-12-15 06:07] LABS: BUN/Creatinine Ratio 5.35; Calcium 8.7 mg/dL (8.4-10.2); Chloride 98.6 mmol/L (98-107); Potassium 3.9 mmol/L (3.6-5.0)
[2016-12-15 08:22] LABS: Basophils % (Auto) 0.6 % (0.0-1.8); Eosinophils % (Auto) 3.1 % (0.0-4.3); Hematocrit 27.6 % (30.3-42.9); Hemoglobin 8.9 gm/dl (10.1-14.3); Mean Corpuscular HGB Conc 32 % (30-34); Mean Corpuscular Hemoglobin 29 pg (28-32); Mean Corpuscular Volume 89 fl (79-97); Platelet Count 162 K/mm3 (140-440); Red Blood Count 3.09 M/mm3 (3.65-5.03); Red Cell Distribution Width 13.9 % (13.2-15.2); White Blood Count 5.4 K/mm3 (4.5-11.0)
[2016-12-15] MEDS: COREG PO SCH ×2 (10:00→22:50)
[2016-12-15] MEDS: HEPARIN SUB-Q SCH ×2 (10:00→22:50)
--- NOTE | 2016-12-15 10:27 | Progress Note ---
Subjective Principal diagnosis: ascites Interval history: Patient was seen today for follow-up on multiple renal related issues Events noted, she has been initiated on renal replacement therapy which she's been tolerating well No acute distress Vitals labs intake output medications reviewed Social history: Reviewed Family history: Reviewed Physical examination Vitals: Reviewed HEENT: Oral mucosa moist Neck: Supple no JVD Chest: Clear to auscultation no crackles Heart: Regular rate and rhythm S1 and S2 heard Abdomen: Soft nontender bowel sounds present Extremity: Mild edema dry skin Dermatology; dry skin Psychiatry: No evidence of agitation or aggression Assessment and plan; Acute kidney injury in a patient who is currently dialysis dependent without any significant improvement of renal function Patient will continue to dialyze at least 3-4 times per week for now and continue to monitor for recovery of renal function Hypertension has been satisfactorily controlled at this point Anemia currently hemoglobin 8.9 Patient will need to continue with renal placement therapy we will continue to monitor for any signs of improvement in renal function Continue with supportive care Patient has been adequately counseled and educated regarding renal related issues all questions have been answered Periodically monitor renal related labs We'll continue to follow and make recommendation from renal standpoin Objective - Vital Signs Vital signs: Vital Signs - 12hr 12/14/16 12/14/16 12/15/16 23:24 23:54 05:00 Temperature Pulse Rate 70 Pulse Rate [ Left Radial] Respiratory 18 20 Rate Blood Pressure [Left Radial Artery] O2 Sat by Pulse Oximetry 12/15/16 12/15/16 12/15/16 05:57 07:01 08:22 Temperature 98.6 F 98.8 F Pulse Rate 68 Pulse Rate [ 65 68 Left Radial] Respiratory 20 18 Rate Blood Pressure 125/60 146/67 [Left Radial Artery] O2 Sat by Pulse 91 99 Oximetry 12/15/16 12/15/16 09:20 10:13 Temperature 98.8 F 98.8 F Pulse Rate Pulse Rate [ 68 68 Left Radial] Respiratory 20 18 Rate Blood Pressure 147/69 147/69 [Left Radial Artery] O2 Sat by Pulse 99 100 Oximetry - Lab 12/15/16 08:06 12/15/16 05:30 Most recent lab results Calcium 8.7 mg/dL (8.4-10.2) 12/15/16 05:30 Urine Creatinine 336.8 mg/dL (0.1-20.0) H 12/07/16 17:25 Urine Sodium 13 mEq/L 12/07/16 17:25
--- NOTE | 2016-12-15 10:38 | XRay Report ---
Chest 2 views: Compared to 12/11/16. History: Sleep apnea. Findings: Borderline cardiomegaly. Trachea is midline. Stable large bore right venous catheter. No consolidation, pneumothorax or pleural effusion. No significant interval change. No significant interval change.
--- NOTE | 2016-12-15 10:49 | Progress Note ---
Assessment and Plan Altered mental status -resolved Head CT shows no acute intracranial process Volume overload Hyperkalemia -resolved Coronary artery disease with prior CABG Right and LHC findings: moderate to severe elevated left and right heart filling pressures; moderate to severe pulmonary HTN 3 vessel disease ESTRADA to LAD patent SVG x 2 occluded (Diag and OM) subtotal occlusion of proximal segment of SVG to RCA treated with a drug eluting stent EF 40-45% Acute renal failure secondary to contrast nephropathy initiated on dialysis Acute drop in H&H s/p blood transfusion Ischemic Cardiomyopathy Hypertension Deconditioning Continue medical therapy for coronary artery disease, including dual oral antiplatelet therapy for recent coronary stent. Subjective Date of service: 12/15/16 Principal diagnosis: ascites Interval history: Patient has no complaints. Objective Vital Signs Temp Pulse Pulse Resp Resp BP Pulse Ox 12/15/16 10:13 98.8 F 68 18 147/69 100 12/15/16 09:20 98.8 F 68 20 147/69 99 12/15/16 08:22 68 12/15/16 07:01 98.8 F 68 18 146/67 99 12/15/16 05:57 98.6 F 65 20 125/60 91 12/15/16 05:00 70 12/14/16 23:54 20 12/14/16 23:24 18 12/14/16 22:00 22 12/14/16 20:46 20 12/14/16 20:00 97.7 F 65 20 129/60 100 12/14/16 18:35 99.0 F 68 18 135/65 100 12/14/16 17:39 69 - Physical Examination General: No Apparent Distress HEENT: Positive: PERRL Neck: Positive: trachea midline Cardiac: Positive: Reg Rate and Rhythm Lungs: Positive: Decreased Breath Sounds Neuro: Positive: Grossly Intact, Weakness Extremities: Present: +1 Edema - Labs and Meds CBC 12/15/16 Range/Units 08:06 WBC 5.4 (4.5-11.0) K/mm3 RBC 3.09 L (3.65-5.03) M/mm3 Hgb 8.9 L (10.1-14.3) gm/dl Hct 27.6 L (30.3-42.9) % Plt Count 162 (140-440) K/mm3 Lymph # 1.0 L (1.2-5.4) K/mm3 [place] # 0.7 (0.0-0.8) K/mm3 Eos # 0.2 (0.0-0.4) K/mm3 Baso # 0.0 (0.0-0.1) K/mm3 Comprehensive Metabolic Panel 12/15/16 Range/Units 05:30 Sodium 137 (137-145) mmol/L Potassium 3.9 (3.6-5.0) mmol/L Chloride 98.6 (98-107) mmol/L Carbon Dioxide 28 (22-30) mmol/L BUN 15 (7-17) mg/dL Creatinine 2.8 H (0.7-1.2) mg/dL Glucose 105 H (65-100) mg/dL Calcium 8.7 (8.4-10.2) mg/dL
[2016-12-15] MEDS ORDERED: NACL 0.9 (PRIMING MACHINE ONLY DIALYSIS) MC ONE (11:31)
--- NOTE | 2016-12-15 13:10 | Progress Note ---
Assessment and Plan (1) Acute encephalopathy Current Visit: Yes Status: Acute Plan to address problem: - doing better overall - suspect may be depression related element and may benefit from psychiatric evaluation - CT brain negative for acute process - continue qhs BIPAP for likely SDB - continue effexor re: depression (2) PATRIA (acute kidney injury) Current Visit: Yes Status: Acute Plan to address problem: - element of contrast induced nephropathy - nephrology evaluation ongoing - follow I's & O's and electrolytes - tolerating dialysis well so far (3) Anemia Current Visit: Yes Status: Acute Qualifiers: Anemia type: A Iron deficiency anemia type: I Vitamin B12 deficiency anemia type: V Folate deficiency anemia type: F Bone marrow failure anemia type: B Hemolytic anemia type: H Other causes of anemia: O Chronic kidney disease stage: C Plan to address problem: - likely of chronic disease - iron studies - no acute indication for transfusion (4) CAD (coronary artery disease) of artery bypass graft Current Visit: Yes Status: Acute Qualifiers: [place] vs. 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 per long term care administrator (5) Discharge planning issues Current Visit: Yes Status: Acute Plan to address problem: - to remain on telemetry; hopefully no volume overload issues down the line Subjective Date of service: 12/15/16 Principal diagnosis: Acute Encephalopathy; PATRIA on Dialysis; CAD s/p PCI and stenting Interval history: Seen and examined at bedside; 24 hour events reviewed; nursing and respiratory care staff consulted; no adverse overnight events reported to me; sitting in bed ; on supplemental oxygen; denies acute chest pains or increased SOB; wants to go home Objective Vital Signs - 12hr 12/15/16 12/15/16 12/15/16 05:00 05:57 07:01 Temperature 98.6 F 98.8 F Pulse Rate 70 Pulse Rate [ 65 68 Left Radial] Respiratory 20 18 Rate Blood Pressure Blood Pressure 125/60 146/67 [Left Radial Artery] O2 Sat by Pulse 91 99 Oximetry 12/15/16 12/15/16 12/15/16 08:22 09:20 10:00 Temperature 98.8 F Pulse Rate 68 Pulse Rate [ 68 68 Left Radial] Respiratory 20 18 Rate Blood Pressure Blood Pressure 147/69 [Left Radial Artery] O2 Sat by Pulse 99 99 Oximetry 12/15/16 12/15/16 12/15/16 10:13 10:45 11:00 Temperature 98.8 F 98.4 F Pulse Rate 64 66 Pulse Rate [ 68 Left Radial] Respiratory 18 18 Rate Blood Pressure 149/81 141/73 Blood Pressure 147/69 [Left Radial Artery] O2 Sat by Pulse 100 Oximetry 12/15/16 12/15/16 12/15/16 11:15 11:30 11:45 Temperature Pulse Rate 66 66 68 Pulse Rate [ Left Radial] Respiratory Rate Blood Pressure 143/74 146/73 151/76 Blood Pressure [Left Radial Artery] O2 Sat by Pulse Oximetry 12/15/16 12/15/16 12/15/16 12:00 12:15 12:30 Temperature Pulse Rate 68 66 69 Pulse Rate [ Left Radial] Respiratory Rate Blood Pressure 140/79 146/75 155/78 Blood Pressure [Left Radial Artery] O2 Sat by Pulse Oximetry 12/15/16 12:45 Temperature Pulse Rate 68 Pulse Rate [ Left Radial] Respiratory Rate Blood Pressure 142/80 Blood Pressure [Left Radial Artery] O2 Sat by Pulse Oximetry Constitutional: no acute distress, alert Eyes: non-icteric ENT: oropharynx moist Neck: supple, no lymphadenopathy Effort: normal Ascultation: Bilateral: clear, diminished breath sounds Cardiovascular: regular rate and rhythm Gastrointestinal: normoactive bowel sounds, soft, non-tender, non-distended Integumentary: normal Extremities: no cyanosis, no edema, pulses normal, no ischemia or petechiae Neurologic: normal mental status, non-focal exam, pupils equal and round, motor strength normal and Psychiatric: depressed CBC and BMP: 12/17/16 07:52 12/17/16 07:52 ABG, PT/INR, D-dimer: ABG POC ABG pH 7.356 (7.35-7.45) 11/25/16 22:20 POC ABG pCO2 38.1 (35-45) 11/25/16 22:20 POC ABG pO2 67 (80-105) L 11/25/16 22:20 POC ABG HCO3 21.3 11/25/16 22:20 POC ABG Total CO2 22 11/25/16 22:20 POC ABG O2 Sat 92 11/25/16 22:20 PT/INR, D-dimer PT 14.5 Sec. (12.2-14.9) 11/22/16 07:20 INR 1.14 (0.87-1.13) H 11/22/16 07:20 Abnormal lab findings: Abnormal Labs 11/22/16 11/22/16 11/22/16 07:20 07:20 07:20 WBC RBC 3.52 L Hgb Hct Plt Count Lymph % (Auto) [place] % (Auto) 11.5 H Eos % (Auto) Lymph # Seg Neutrophils % Seg Neuts % (Manual) Lymphocytes % (Manual) Monocytes % (Manual) Lymphocytes # (Manual) INR 1.14 H APTT Activated Clotting Time POC ABG pH POC ABG pO2 Sodium Potassium Chloride 108.0 H Carbon Dioxide BUN 25 H Creatinine 1.4 H Glucose POC Glucose Uric Acid Calcium AST ALT Total Creatine Kinase Albumin Urine WBC (Auto) Urine Creatinine Urine Chloride Crossmatch 11/22/16 11/22/16 11/22/16 07:37 10:46 13:13 WBC RBC Hgb Hct Plt Count Lymph % (Auto) [place] % (Auto) Eos % (Auto) Lymph # Seg Neutrophils % Seg Neuts % (Manual) Lymphocytes % (Manual) Monocytes % (Manual) Lymphocytes # (Manual) INR APTT 37.7 H Activated Clotting Time 327 H 202 H POC ABG pH POC ABG pO2 Sodium Potassium Chloride Carbon Dioxide BUN Creatinine Glucose POC Glucose Uric Acid Calcium AST ALT Total Creatine Kinase Albumin Urine WBC (Auto) Urine Creatinine Urine Chloride Crossmatch 11/22/16 11/23/16 11/23/16 14:25 06:49 06:49 WBC 4.1 L RBC 2.74 L Hgb 7.7 L Hct 23.8 L D Plt Count 135 L Lymph % (Auto) [place] % (Auto) 13.8 H Eos % (Auto) Lymph # Seg Neutrophils % Seg Neuts % (Manual) Lymphocytes % (Manual) Monocytes % (Manual) Lymphocytes # (Manual) INR APTT Activated Clotting Time 175 H POC ABG pH POC ABG pO2 Sodium Potassium Chloride Carbon Dioxide BUN 27 H Creatinine 1.8 H Glucose 137 H POC Glucose Uric Acid Calcium 8.0 L AST ALT Total Creatine Kinase 183 H Albumin Urine WBC (Auto) Urine Creatinine Urine Chloride Crossmatch 11/23/16 11/23/16 11/23/16 11:07 12:45 17:32 WBC RBC 2.98 L Hgb 8.5 L Hct 26.3 L Plt Count Lymph % (Auto) [place] % (Auto) 13.2 H Eos % (Auto) Lymph # Seg Neutrophils % Seg Neuts % (Manual) Lymphocytes % (Manual) Monocytes % (Manual) Lymphocytes # (Manual) INR APTT Activated Clotting Time POC ABG pH POC ABG pO2 Sodium Potassium Chloride Carbon Dioxide BUN Creatinine Glucose POC Glucose 134 H 171 H Uric Acid Calcium AST ALT Total Creatine Kinase Albumin Urine WBC (Auto) Urine Creatinine Urine Chloride Crossmatch 11/23/16 11/24/16 11/24/16 21:24 05:28 05:28 WBC RBC Hgb 8.6 L Hct 26.8 L Plt Count Lymph % (Auto) [place] % (Auto) Eos % (Auto) Lymph # Seg Neutrophils % Seg Neuts % (Manual) Lymphocytes % (Manual) Monocytes % (Manual) Lymphocytes # (Manual) INR APTT Activated Clotting Time POC ABG pH POC ABG pO2 Sodium Potassium 5.9 H D Chloride Carbon Dioxide 19 L BUN 33 H Creatinine 2.7 H Glucose 162 H POC Glucose 174 H Uric Acid Calcium AST ALT Total Creatine Kinase Albumin Urine WBC (Auto) Urine Creatinine Urine Chloride Crossmatch 11/24/16 11/24/16 11/24/16 06:23 07:05 07:09 WBC RBC Hgb Hct Plt Count Lymph % (Auto) [place] % (Auto) Eos % (Auto) Lymph # Seg Neutrophils % Seg Neuts % (Manual) Lymphocytes % (Manual) Monocytes % (Manual) Lymphocytes # (Manual) INR APTT Activated Clotting Time POC ABG pH 7.264 L POC ABG pO2 33 L Sodium Potassium 5.8 H Chloride Carbon Dioxide 20 L BUN 33 H Creatinine 2.8 H Glucose 158 H POC Glucose 209 H Uric Acid Calcium AST 100 H ALT 118 H Total Creatine Kinase Albumin 3.5 L Urine WBC (Auto) Urine Creatinine Urine Chloride Crossmatch 11/24/16 11/24/16 11/24/16 07:19 08:50 11:45 WBC RBC Hgb Hct Plt Count Lymph % (Auto) [place] % (Auto) Eos % (Auto) Lymph # Seg Neutrophils % Seg Neuts % (Manual) Lymphocytes % (Manual) Monocytes % (Manual) Lymphocytes # (Manual) INR APTT Activated Clotting Time POC ABG pH 7.285 L POC ABG pO2 64 L Sodium Potassium Chloride Carbon Dioxide BUN Creatinine Glucose POC Glucose 193 H 169 H Uric Acid Calcium AST ALT Total Creatine Kinase Albumin Urine WBC (Auto) Urine Creatinine Urine Chloride Crossmatch 11/24/16 11/24/16 11/24/16 15:24 15:32 17:14 WBC RBC Hgb Hct Plt Count Lymph % (Auto) [place] % (Auto) Eos % (Auto) Lymph # Seg Neutrophils % Seg Neuts % (Manual) Lymphocytes % (Manual) Monocytes % (Manual) Lymphocytes # (Manual) INR APTT Activated Clotting Time POC ABG pH POC ABG pO2 Sodium Potassium 5.2 H Chloride Carbon Dioxide 20 L BUN 37 H Creatinine 3.0 H Glucose 144 H POC Glucose 195 H Uric Acid Calcium AST ALT Total Creatine Kinase Albumin Urine WBC (Auto) Urine Creatinine Urine Chloride Crossmatch See Detail 11/24/16 11/24/16 11/25/16 21:57 23:39 05:30 WBC RBC Hgb Hct Plt Count Lymph % (Auto) [place] % (Auto) Eos % (Auto) Lymph # Seg Neutrophils % Seg Neuts % (Manual) Lymphocytes % (Manual) Monocytes % (Manual) Lymphocytes # (Manual) INR APTT Activated Clotting Time POC ABG pH POC ABG pO2 Sodium Potassium Chloride Carbon Dioxide BUN Creatinine Glucose POC Glucose 112 H 129 H Uric Acid Calcium AST ALT Total Creatine Kinase Albumin Urine WBC (Auto) Urine Creatinine 295.3 H Urine Chloride 31.3 L Crossmatch 11/25/16 11/25/16 11/25/16 07:00 07:00 08:40 WBC RBC 3.30 L Hgb 9.5 L Hct 29.0 L Plt Count 119 L Lymph % (Auto) [place] % (Auto) 9.5 H Eos % (Auto) Lymph # Seg Neutrophils % 72.7 H Seg Neuts % (Manual) Lymphocytes % (Manual) Monocytes % (Manual) Lymphocytes # (Manual) INR APTT Activated Clotting Time POC ABG pH POC ABG pO2 Sodium Potassium Chloride 110.1 H Carbon Dioxide 18 L BUN 38 H Creatinine 2.6 H Glucose 123 H POC Glucose 129 H Uric Acid Calcium 8.2 L AST ALT Total Creatine Kinase Albumin Urine WBC (Auto) Urine Creatinine Urine Chloride Crossmatch 11/25/16 11/25/16 11/25/16 11:24 12:17 16:16 WBC RBC Hgb Hct Plt Count Lymph % (Auto) [place] % (Auto) Eos % (Auto) Lymph # Seg Neutrophils % Seg Neuts % (Manual) Lymphocytes % (Manual) Monocytes % (Manual) Lymphocytes # (Manual) INR APTT Activated Clotting Time POC ABG pH 7.327 L POC ABG pO2 Sodium Potassium Chloride Carbon Dioxide BUN Creatinine Glucose POC Glucose 142 H 151 H Uric Acid Calcium AST ALT Total Creatine Kinase Albumin Urine WBC (Auto) Urine Creatinine Urine Chloride Crossmatch 11/25/16 11/25/16 11/26/16 21:48 22:20 00:58 WBC RBC 3.23 L Hgb 9.2 L Hct 27.9 L Plt Count 119 L Lymph % (Auto) 10.2 L [place] % (Auto) 7.6 H Eos % (Auto) Lymph # 0.8 L Seg Neutrophils % 79.9 H Seg Neuts % (Manual) Lymphocytes % (Manual) Monocytes % (Manual) Lymphocytes # (Manual) INR APTT Activated Clotting Time POC ABG pH POC ABG pO2 67 L Sodium Potassium Chloride Carbon Dioxide BUN Creatinine Glucose POC Glucose 149 H Uric Acid Calcium AST ALT Total Creatine Kinase Albumin Urine WBC (Auto) Urine Creatinine Urine Chloride Crossmatch 11/26/16 11/26/16 11/26/16 06:11 07:40 11:28 WBC RBC Hgb Hct Plt Count Lymph % (Auto) [place] % (Auto) Eos % (Auto) Lymph # Seg Neutrophils % Seg Neuts % (Manual) Lymphocytes % (Manual) Monocytes % (Manual) Lymphocytes # (Manual) INR APTT Activated Clotting Time POC ABG pH POC ABG pO2 Sodium Potassium Chloride Carbon Dioxide 21 L BUN 41 H Creatinine 2.5 H Glucose 151 H POC Glucose 144 H 168 H Uric Acid Calcium 8.1 L AST ALT Total Creatine Kinase Albumin Urine WBC (Auto) Urine Creatinine Urine Chloride Crossmatch 11/26/16 11/27/16 11/27/16 15:50 00:03 03:45 WBC RBC Hgb Hct Plt Count Lymph % (Auto) [place] % (Auto) Eos % (Auto) Lymph # Seg Neutrophils % Seg Neuts % (Manual) Lymphocytes % (Manual) Monocytes % (Manual) Lymphocytes # (Manual) INR APTT Activated Clotting Time POC ABG pH POC ABG pO2 Sodium Potassium Chloride Carbon Dioxide BUN 46 H Creatinine 2.8 H Glucose 147 H POC Glucose 153 H 183 H Uric Acid Calcium 8.1 L AST ALT Total Creatine Kinase Albumin Urine WBC (Auto) Urine Creatinine Urine Chloride Crossmatch 11/27/16 11/27/16 11/27/16 06:26 07:32 11:53 WBC RBC Hgb Hct Plt Count Lymph % (Auto) [place] % (Auto) Eos % (Auto) Lymph # Seg Neutrophils % Seg Neuts % (Manual) Lymphocytes % (Manual) Monocytes % (Manual) Lymphocytes # (Manual) INR APTT Activated Clotting Time POC ABG pH POC ABG pO2 Sodium Potassium Chloride Carbon Dioxide BUN Creatinine Glucose POC Glucose 208 H 193 H 180 H Uric Acid Calcium AST ALT Total Creatine Kinase Albumin Urine WBC (Auto) Urine Creatinine Urine Chloride Crossmatch 11/27/16 11/27/16 11/28/16 16:42 21:51 08:13 WBC RBC Hgb Hct Plt Count Lymph % (Auto) [place] % (Auto) Eos % (Auto) Lymph # Seg Neutrophils % Seg Neuts % (Manual) Lymphocytes % (Manual) Monocytes % (Manual) Lymphocytes # (Manual) INR APTT Activated Clotting Time POC ABG pH POC ABG pO2 Sodium Potassium Chloride Carbon Dioxide BUN Creatinine Glucose POC Glucose 161 H 167 H 151 H Uric Acid Calcium AST ALT Total Creatine Kinase Albumin Urine WBC (Auto) Urine Creatinine Urine Chloride Crossmatch 11/28/16 11/28/16 11/28/16 10:01 10:01 12:30 WBC RBC Hgb 8.5 L Hct 25.3 L Plt Count Lymph % (Auto) [place] % (Auto) Eos % (Auto) Lymph # Seg Neutrophils % Seg Neuts % (Manual) Lymphocytes % (Manual) Monocytes % (Manual) Lymphocytes # (Manual) INR APTT Activated Clotting Time POC ABG pH POC ABG pO2 Sodium 136 L Potassium Chloride Carbon Dioxide BUN 50 H Creatinine 2.8 H Glucose 143 H POC Glucose 154 H Uric Acid Calcium 8.1 L AST ALT Total Creatine Kinase Albumin Urine WBC (Auto) Urine Creatinine Urine Chloride Crossmatch 11/28/16 11/28/16 11/28/16 15:22 16:55 20:40 WBC RBC Hgb Hct Plt Count Lymph % (Auto) [place] % (Auto) Eos % (Auto) Lymph # Seg Neutrophils % Seg Neuts % (Manual) Lymphocytes % (Manual) Monocytes % (Manual) Lymphocytes # (Manual) INR APTT Activated Clotting Time POC ABG pH POC ABG pO2 Sodium Potassium Chloride Carbon Dioxide BUN Creatinine Glucose POC Glucose 191 H 177 H Uric Acid Calcium AST ALT Total Creatine Kinase Albumin Urine WBC (Auto) Urine Creatinine Urine Chloride Crossmatch See Detail 11/29/16 11/29/16 11/29/16 07:18 07:18 07:31 WBC RBC Hgb 9.5 L Hct 28.2 L Plt Count Lymph % (Auto) [place] % (Auto) Eos % (Auto) Lymph # Seg Neutrophils % Seg Neuts % (Manual) Lymphocytes % (Manual) Monocytes % (Manual) Lymphocytes # (Manual) INR APTT Activated Clotting Time POC ABG pH POC ABG pO2 Sodium 136 L Potassium Chloride Carbon Dioxide BUN 51 H Creatinine 2.7 H Glucose 120 H POC Glucose 127 H Uric Acid Calcium 8.1 L AST ALT Total Creatine Kinase Albumin Urine WBC (Auto) Urine Creatinine Urine Chloride Crossmatch 11/29/16 11/29/16 11/29/16 12:49 17:35 20:31 WBC RBC Hgb Hct Plt Count Lymph % (Auto) [place] % (Auto) Eos % (Auto) Lymph # Seg Neutrophils % Seg Neuts % (Manual) Lymphocytes % (Manual) Monocytes % (Manual) Lymphocytes # (Manual) INR APTT Activated Clotting Time POC ABG pH POC ABG pO2 Sodium Potassium Chloride Carbon Dioxide BUN Creatinine Glucose POC Glucose 213 H 179 H 154 H Uric Acid Calcium AST ALT Total Creatine Kinase Albumin Urine WBC (Auto) Urine Creatinine Urine Chloride Crossmatch 11/30/16 11/30/16 11/30/16 08:25 09:52 16:07 WBC RBC Hgb Hct Plt Count Lymph % (Auto) [place] % (Auto) Eos % (Auto) Lymph # Seg Neutrophils % Seg Neuts % (Manual) Lymphocytes % (Manual) Monocytes % (Manual) Lymphocytes # (Manual) INR APTT Activated Clotting Time POC ABG pH POC ABG pO2 Sodium Potassium Chloride Carbon Dioxide BUN 52 H Creatinine 3.0 H Glucose 156 H POC Glucose 127 H 216 H Uric Acid Calcium AST ALT Total Creatine Kinase Albumin Urine WBC (Auto) Urine Creatinine Urine Chloride Crossmatch 11/30/16 12/01/16 12/01/16 20:45 08:34 08:48 WBC RBC Hgb Hct Plt Count Lymph % (Auto) [place] % (Auto) Eos % (Auto) Lymph # Seg Neutrophils % Seg Neuts % (Manual) Lymphocytes % (Manual) Monocytes % (Manual) Lymphocytes # (Manual) INR APTT Activated Clotting Time POC ABG pH POC ABG pO2 Sodium 136 L Potassium Chloride Carbon Dioxide BUN 50 H Creatinine 3.0 H Glucose 124 H POC Glucose 197 H 136 H Uric Acid Calcium AST ALT Total Creatine Kinase Albumin Urine WBC (Auto) Urine Creatinine Urine Chloride Crossmatch 12/01/16 12/01/16 12/01/16 11:35 16:56 22:08 WBC RBC Hgb Hct Plt Count Lymph % (Auto) [place] % (Auto) Eos % (Auto) Lymph # Seg Neutrophils % Seg Neuts % (Manual) Lymphocytes % (Manual) Monocytes % (Manual) Lymphocytes # (Manual) INR APTT Activated Clotting Time POC ABG pH POC ABG pO2 Sodium Potassium Chloride Carbon Dioxide BUN Creatinine Glucose POC Glucose 205 H 210 H 157 H Uric Acid Calcium AST ALT Total Creatine Kinase Albumin Urine WBC (Auto) Urine Creatinine Urine Chloride Crossmatch 12/02/16 12/02/16 12/02/16 05:52 08:47 15:16 WBC RBC Hgb Hct Plt Count Lymph % (Auto) [place] % (Auto) Eos % (Auto) Lymph # Seg Neutrophils % Seg Neuts % (Manual) Lymphocytes % (Manual) Monocytes % (Manual) Lymphocytes # (Manual) INR APTT Activated Clotting Time POC ABG pH POC ABG pO2 Sodium Potassium Chloride Carbon Dioxide BUN 48 H Creatinine 2.7 H Glucose 136 H POC Glucose 134 H 226 H Uric Acid Calcium AST ALT Total Creatine Kinase Albumin Urine WBC (Auto) Urine Creatinine Urine Chloride Crossmatch 12/02/16 12/03/16 12/03/16 22:53 05:58 05:58 WBC 4.2 L RBC 3.37 L Hgb 9.7 L Hct 29.4 L Plt Count Lymph % (Auto) [place] % (Auto) Eos % (Auto) Lymph # Seg Neutrophils % Seg Neuts % (Manual) Lymphocytes % (Manual) Monocytes % (Manual) Lymphocytes # (Manual) INR APTT Activated Clotting Time POC ABG pH POC ABG pO2 Sodium Potassium Chloride Carbon Dioxide BUN 47 H Creatinine 2.7 H Glucose 142 H POC Glucose 235 H Uric Acid Calcium AST ALT Total Creatine Kinase Albumin Urine WBC (Auto) Urine Creatinine Urine Chloride Crossmatch 12/03/16 12/03/16 12/03/16 13:04 16:47 21:50 WBC RBC Hgb Hct Plt Count Lymph % (Auto) [place] % (Auto) Eos % (Auto) Lymph # Seg Neutrophils % Seg Neuts % (Manual) Lymphocytes % (Manual) Monocytes % (Manual) Lymphocytes # (Manual) INR APTT Activated Clotting Time POC ABG pH POC ABG pO2 Sodium Potassium Chloride Carbon Dioxide BUN Creatinine Glucose POC Glucose 135 H 140 H 170 H Uric Acid Calcium AST ALT Total Creatine Kinase Albumin Urine WBC (Auto) Urine Creatinine Urine Chloride Crossmatch 12/04/16 12/04/16 12/04/16 07:26 12:21 16:43 WBC RBC Hgb Hct Plt Count Lymph % (Auto) [place] % (Auto) Eos % (Auto) Lymph # Seg Neutrophils % Seg Neuts % (Manual) Lymphocytes % (Manual) Monocytes % (Manual) Lymphocytes # (Manual) INR APTT Activated Clotting Time POC ABG pH POC ABG pO2 Sodium Potassium Chloride Carbon Dioxide BUN Creatinine Glucose POC Glucose 145 H 203 H 210 H Uric Acid Calcium AST ALT Total Creatine Kinase Albumin Urine WBC (Auto) Urine Creatinine Urine Chloride Crossmatch 12/04/16 12/05/16 12/05/16 21:41 07:54 07:54 WBC RBC 3.10 L Hgb 9.0 L Hct 26.9 L Plt Count Lymph % (Auto) [place] % (Auto) 13.8 H Eos % (Auto) 5.3 H Lymph # 1.1 L Seg Neutrophils % Seg Neuts % (Manual) Lymphocytes % (Manual) Monocytes % (Manual) Lymphocytes # (Manual) INR APTT Activated Clotting Time POC ABG pH POC ABG pO2 Sodium Potassium Chloride Carbon Dioxide BUN 51 H Creatinine 3.7 H Glucose 132 H POC Glucose 211 H Uric Acid Calcium AST ALT Total Creatine Kinase Albumin Urine WBC (Auto) Urine Creatinine Urine Chloride Crossmatch 12/05/16 12/05/16 12/05/16 08:30 11:46 22:02 WBC RBC Hgb Hct Plt Count Lymph % (Auto) [place] % (Auto) Eos % (Auto) Lymph # Seg Neutrophils % Seg Neuts % (Manual) Lymphocytes % (Manual) Monocytes % (Manual) Lymphocytes # (Manual) INR APTT Activated Clotting Time POC ABG pH POC ABG pO2 Sodium Potassium Chloride Carbon Dioxide BUN Creatinine Glucose POC Glucose 140 H 225 H 165 H Uric Acid Calcium AST ALT Total Creatine Kinase Albumin Urine WBC (Auto) Urine Creatinine Urine Chloride Crossmatch 12/06/16 12/06/16 12/06/16 08:17 09:10 09:10 WBC RBC Hgb Hct Plt Count Lymph % (Auto) [place] % (Auto) Eos % (Auto) Lymph # Seg Neutrophils % Seg Neuts % (Manual) Lymphocytes % (Manual) Monocytes % (Manual) Lymphocytes # (Manual) INR APTT Activated Clotting Time POC ABG pH POC ABG pO2 Sodium Potassium Chloride 97.6 L Carbon Dioxide BUN 50 H Creatinine 3.8 H Glucose 126 H POC Glucose 166 H Uric Acid 10.0 H Calcium AST ALT Total Creatine Kinase Albumin Urine WBC (Auto) Urine Creatinine Urine Chloride Crossmatch 12/06/16 12/06/16 12/06/16 12:18 17:39 22:31 WBC RBC Hgb Hct Plt Count Lymph % (Auto) [place] % (Auto) Eos % (Auto) Lymph # Seg Neutrophils % Seg Neuts % (Manual) Lymphocytes % (Manual) Monocytes % (Manual) Lymphocytes # (Manual) INR APTT Activated Clotting Time POC ABG pH POC ABG pO2 Sodium Potassium Chloride Carbon Dioxide BUN Creatinine Glucose POC Glucose 188 H 176 H 157 H Uric Acid Calcium AST ALT Total Creatine Kinase Albumin Urine WBC (Auto) Urine Creatinine Urine Chloride Crossmatch 12/07/16 12/07/16 12/07/16 08:48 08:49 09:01 WBC RBC Hgb Hct Plt Count Lymph % (Auto) [place] % (Auto) Eos % (Auto) Lymph # Seg Neutrophils % Seg Neuts % (Manual) Lymphocytes % (Manual) Monocytes % (Manual) Lymphocytes # (Manual) INR APTT Activated Clotting Time POC ABG pH POC ABG pO2 Sodium Potassium Chloride 97.9 L Carbon Dioxide BUN 52 H Creatinine 4.2 H Glucose 105 H POC Glucose 107 H Uric Acid 10.3 H Calcium AST ALT Total Creatine Kinase 188 H Albumin Urine WBC (Auto) Urine Creatinine Urine Chloride Crossmatch 12/07/16 12/07/16 12/07/16 12:27 16:59 17:25 WBC RBC Hgb Hct Plt Count Lymph % (Auto) [place] % (Auto) Eos % (Auto) Lymph # Seg Neutrophils % Seg Neuts % (Manual) Lymphocytes % (Manual) Monocytes % (Manual) Lymphocytes # (Manual) INR APTT Activated Clotting Time POC ABG pH POC ABG pO2 Sodium Potassium Chloride Carbon Dioxide BUN Creatinine Glucose POC Glucose 163 H 124 H Uric Acid Calcium AST ALT Total Creatine Kinase Albumin Urine WBC (Auto) 9.0 H Urine Creatinine Urine Chloride Crossmatch 12/07/16 12/07/16 12/08/16 17:25 22:04 07:53 WBC RBC Hgb Hct Plt Count Lymph % (Auto) [place] % (Auto) Eos % (Auto) Lymph # Seg Neutrophils % Seg Neuts % (Manual) Lymphocytes % (Manual) Monocytes % (Manual) Lymphocytes # (Manual) INR APTT Activated Clotting Time POC ABG pH POC ABG pO2 Sodium Potassium Chloride Carbon Dioxide BUN Creatinine Glucose POC Glucose 133 H 168 H Uric Acid Calcium AST ALT Total Creatine Kinase Albumin Urine WBC (Auto) Urine Creatinine 336.8 H Urine Chloride Crossmatch 12/08/16 12/08/16 12/08/16 08:05 12:17 22:09 WBC RBC Hgb Hct Plt Count Lymph % (Auto) [place] % (Auto) Eos % (Auto) Lymph # Seg Neutrophils % Seg Neuts % (Manual) Lymphocytes % (Manual) Monocytes % (Manual) Lymphocytes # (Manual) INR APTT Activated Clotting Time POC ABG pH POC ABG pO2 Sodium Potassium Chloride Carbon Dioxide BUN 55 H Creatinine 5.0 H Glucose 142 H POC Glucose 140 H 154 H Uric Acid Calcium AST ALT Total Creatine Kinase Albumin Urine WBC (Auto) Urine Creatinine Urine Chloride Crossmatch 12/09/16 12/09/16 12/09/16 06:40 07:47 08:41 WBC RBC 3.09 L Hgb 8.8 L Hct 27.0 L Plt Count Lymph % (Auto) [place] % (Auto) Eos % (Auto) Lymph # Seg Neutrophils % Seg Neuts % (Manual) 75.0 H Lymphocytes % (Manual) 13.0 L Monocytes % (Manual) 8.0 H Lymphocytes # (Manual) 0.7 L INR APTT Activated Clotting Time POC ABG pH POC ABG pO2 Sodium Potassium Chloride Carbon Dioxide BUN 23 H Creatinine 3.1 H Glucose 108 H POC Glucose 115 H Uric Acid Calcium AST ALT Total Creatine Kinase Albumin Urine WBC (Auto) Urine Creatinine Urine Chloride Crossmatch 12/09/16 12/09/16 12/09/16 08:41 12:26 22:19 WBC RBC Hgb Hct Plt Count Lymph % (Auto) [place] % (Auto) Eos % (Auto) Lymph # Seg Neutrophils % Seg Neuts % (Manual) Lymphocytes % (Manual) Monocytes % (Manual) Lymphocytes # (Manual) INR APTT Activated Clotting Time POC ABG pH POC ABG pO2 Sodium Potassium Chloride Carbon Dioxide BUN 23 H Creatinine 3.0 H Glucose 108 H POC Glucose 140 H 139 H Uric Acid Calcium AST ALT Total Creatine Kinase Albumin Urine WBC (Auto) Urine Creatinine Urine Chloride Crossmatch 12/10/16 12/10/16 12/10/16 06:00 06:00 06:00 WBC RBC 3.47 L Hgb 9.8 L Hct Plt Count Lymph % (Auto) [place] % (Auto) Eos % (Auto) Lymph # Seg Neutrophils % Seg Neuts % (Manual) Lymphocytes % (Manual) Monocytes % (Manual) Lymphocytes # (Manual) INR APTT Activated Clotting Time POC ABG pH POC ABG pO2 Sodium Potassium Chloride Carbon Dioxide BUN Creatinine 1.9 H 1.9 H Glucose 120 H 120 H POC Glucose Uric Acid Calcium AST ALT Total Creatine Kinase Albumin 5.1 H Urine WBC (Auto) Urine Creatinine Urine Chloride Crossmatch 12/10/16 12/10/16 12/10/16 08:34 16:38 21:00 WBC RBC Hgb Hct Plt Count Lymph % (Auto) [place] % (Auto) Eos % (Auto) Lymph # Seg Neutrophils % Seg Neuts % (Manual) Lymphocytes % (Manual) Monocytes % (Manual) Lymphocytes # (Manual) INR APTT Activated Clotting Time POC ABG pH POC ABG pO2 Sodium Potassium Chloride Carbon Dioxide BUN Creatinine Glucose POC Glucose 137 H 109 H 155 H Uric Acid Calcium AST ALT Total Creatine Kinase Albumin Urine WBC (Auto) Urine Creatinine Urine Chloride Crossmatch 12/11/16 12/11/16 12/11/16 06:02 12:33 17:36 WBC RBC Hgb Hct Plt Count Lymph % (Auto) [place] % (Auto) Eos % (Auto) Lymph # Seg Neutrophils % Seg Neuts % (Manual) Lymphocytes % (Manual) Monocytes % (Manual) Lymphocytes # (Manual) INR APTT Activated Clotting Time POC ABG pH POC ABG pO2 Sodium Potassium Chloride 97.0 L Carbon Dioxide 31 H BUN Creatinine 2.3 H Glucose 133 H POC Glucose 131 H 145 H Uric Acid Calcium AST ALT Total Creatine Kinase Albumin Urine WBC (Auto) Urine Creatinine Urine Chloride Crossmatch 12/11/16 12/12/16 12/12/16 21:50 05:58 07:46 WBC RBC Hgb Hct Plt Count Lymph % (Auto) [place] % (Auto) Eos % (Auto) Lymph # Seg Neutrophils % Seg Neuts % (Manual) Lymphocytes % (Manual) Monocytes % (Manual) Lymphocytes # (Manual) INR APTT Activated Clotting Time POC ABG pH POC ABG pO2 Sodium Potassium Chloride Carbon Dioxide BUN Creatinine 3.5 H D Glucose 127 H POC Glucose 158 H 148 H Uric Acid Calcium AST ALT Total Creatine Kinase Albumin Urine WBC (Auto) Urine Creatinine Urine Chloride Crossmatch 12/12/16 12/12/16 12/12/16 11:42 15:55 21:56 WBC RBC Hgb Hct Plt Count Lymph % (Auto) [place] % (Auto) Eos % (Auto) Lymph # Seg Neutrophils % Seg Neuts % (Manual) Lymphocytes % (Manual) Monocytes % (Manual) Lymphocytes # (Manual) INR APTT Activated Clotting Time POC ABG pH POC ABG pO2 Sodium Potassium Chloride Carbon Dioxide BUN Creatinine Glucose POC Glucose 189 H 167 H 160 H Uric Acid Calcium AST ALT Total Creatine Kinase Albumin Urine WBC (Auto) Urine Creatinine Urine Chloride Crossmatch 12/13/16 12/13/16 12/13/16 04:31 04:31 08:03 WBC RBC 3.29 L Hgb 9.4 L Hct 28.9 L Plt Count Lymph % (Auto) [place] % (Auto) 9.2 H Eos % (Auto) Lymph # 1.1 L Seg Neutrophils % Seg Neuts % (Manual) Lymphocytes % (Manual) Monocytes % (Manual) Lymphocytes # (Manual) INR APTT Activated Clotting Time POC ABG pH POC ABG pO2 Sodium Potassium Chloride Carbon Dioxide BUN Creatinine 4.8 H Glucose 119 H POC Glucose 128 H Uric Acid Calcium AST ALT Total Creatine Kinase Albumin Urine WBC (Auto) Urine Creatinine Urine Chloride Crossmatch 12/13/16 12/13/16 12/14/16 17:16 21:37 05:57 WBC RBC 3.40 L Hgb 9.7 L Hct 30.0 L Plt Count Lymph % (Auto) [place] % (Auto) 11.2 H Eos % (Auto) Lymph # Seg Neutrophils % Seg Neuts % (Manual) Lymphocytes % (Manual) Monocytes % (Manual) Lymphocytes # (Manual) INR APTT Activated Clotting Time POC ABG pH POC ABG pO2 Sodium Potassium Chloride Carbon Dioxide BUN Creatinine Glucose POC Glucose 122 H 158 H Uric Acid Calcium AST ALT Total Creatine Kinase Albumin Urine WBC (Auto) Urine Creatinine Urine Chloride Crossmatch 12/14/16 12/14/16 12/14/16 05:57 08:29 12:53 WBC RBC Hgb Hct Plt Count Lymph % (Auto) [place] % (Auto) Eos % (Auto) Lymph # Seg Neutrophils % Seg Neuts % (Manual) Lymphocytes % (Manual) Monocytes % (Manual) Lymphocytes # (Manual) INR APTT Activated Clotting Time POC ABG pH POC ABG pO2 Sodium Potassium Chloride Carbon Dioxide BUN Creatinine 2.8 H Glucose POC Glucose 124 H 181 H Uric Acid Calcium AST ALT Total Creatine Kinase Albumin Urine WBC (Auto) Urine Creatinine Urine Chloride Crossmatch 12/14/16 12/14/16 12/15/16 17:50 22:59 05:30 WBC RBC Hgb Hct Plt Count Lymph % (Auto) [place] % (Auto) Eos % (Auto) Lymph # Seg Neutrophils % Seg Neuts % (Manual) Lymphocytes % (Manual) Monocytes % (Manual) Lymphocytes # (Manual) INR APTT Activated Clotting Time POC ABG pH POC ABG pO2 Sodium Potassium Chloride Carbon Dioxide BUN Creatinine 2.8 H Glucose 105 H POC Glucose 121 H 108 H Uric Acid Calcium AST ALT Total Creatine Kinase Albumin Urine WBC (Auto) Urine Creatinine Urine Chloride Crossmatch 12/15/16 08:06 WBC RBC 3.09 L Hgb 8.9 L Hct 27.6 L Plt Count Lymph % (Auto) [place] % (Auto) 12.4 H Eos % (Auto) Lymph # 1.0 L Seg Neutrophils % Seg Neuts % (Manual) Lymphocytes % (Manual) Monocytes % (Manual) Lymphocytes # (Manual) INR APTT Activated Clotting Time POC ABG pH POC ABG pO2 Sodium Potassium Chloride Carbon Dioxide BUN Creatinine Glucose POC Glucose Uric Acid Calcium AST ALT Total Creatine Kinase Albumin Urine WBC (Auto) Urine Creatinine Urine Chloride Crossmatch
[2016-12-15] MEDS: PROCRIT IV PRN (14:00)
--- NOTE | 2016-12-15 14:11 | Progress Note ---
Assessment and Plan Assessment and plan: Patient is a 56-year-old woman with a history of CKD 3 with baseline cr of 1.8, hyperlipidemia, hypertension, CAD, CHF with ejection fraction of 40-50% in 2013 and ischemic cardiomyopathy who presented for an outpatient cardiac catheterization 11/22/16 and had PCI of SVG to RCA with 99% to 0% with 3.0 mm DE stent. Patient was admitted by Cardiology in the hospital to monitor creatinine before discharge. Repeat labs in the morning did reveal an increase in creatinine around 2.7. Patient was also lethargic with altered sensorium and was placed in the ICU for close observation. Hospitalist consulted and . She was also on nitro drip but with no fever blood pressure was adequately controlled. Subsequently the Lasix was discontinued and HERO inhibitor discontinue due to the rise in creatinine. Nephrology and pulmonology/ ccm were consulted. It was determined that the patient will benefit from dialysis. Patient was subsequent transferred out of the ICU to the floor as she remained stable. D/w Dr. Arrieta who was seeing her until 12/13/16, sometime between 12/08/16 and 12/12/16, we became primary attending. I really don't know details. -Ischemic cardiomyopathy status post PCI of SVG TO RCA: Cardiology following. Continue dual antiplatelet therapy -Abdominal pain: Resolved. Likely constipation, lactulose prn and also fleet enema. no ascities noted as previously suspected, GI Consulted -Acute kidney injury on chronic kidney disease stage III likely contrast nephropathy.-Creatinine 1 back up to 3 with no clear evidence of renal recovery. Still a little uric, Nephrology following. PER Nephrology no ACEI OR ARBS on DISCHARGE. -Acute toxic Metabolic encephalopathy- Resolved CT of the brain negative. -Acute blood loss anemia- S/P 2 units packed red blood cell transfusion. Hemoglobin is stable. We'll check intermittent. No GI bleed noted. -Hypertension- Stable -Anasarca-improved. Patient was initially treated with IV Lasix and albumin this has been since discontinued. Expect improvement with dialysis. -Moderate to severe pulmonary hypertension- cardiology following. -DVT and GI prophylaxis -Plan of care discussed in detail with the patient and (over the phone per wishes). Awaiting to see if she has progressed to ESRD to setup outpt Hemodialysis History Interval history: Patient seen and examined. Follow up on acute renal failure. Overnight uneventful. No cp, sob, n/v or severe headaches. Imaging, old records, testing, labs, nursing notes reviewed. Hospitalist Physical - Physical exam Narrative exam: GEN: WDWN, NAD, AWAKE, ALERT, ORIENTATED x 3 CVS: RRR, NORMAL S1S2 LUNGS/CHEST: NORMAL CHEST EXPANSION B, GOOD AIR ENTRY B ABD: SOFT, NTND, GBS, NO REBOUND OR GUARDING MSK: FROM X 4 EXTREMITIES NEURO: CN 2-12 GROSSLY INTACT except left eye blindness, NO new FOCAL DEFICITS PSY: CALM - Constitutional Vitals: Temp Pulse Resp BP Pulse Ox 98.4 F 68 18 142/80 100 12/15/16 10:45 12/15/16 12:45 12/15/16 10:45 12/15/16 12:45 12/15/16 10:13 General appearance: Present: no acute distress Results - Labs CBC & Chem 7: 12/15/16 08:06 12/15/16 05:30 Labs: Laboratory Last Values WBC 5.4 K/mm3 (4.5-11.0) 12/15/16 08:06 RBC 3.09 M/mm3 (3.65-5.03) L 12/15/16 08:06 Hgb 8.9 gm/dl (10.1-14.3) L 12/15/16 08:06 Hct 27.6 % (30.3-42.9) L 12/15/16 08:06 MCV 89 fl (79-97) 12/15/16 08:06 MCH 29 pg (28-32) 12/15/16 08:06 MCHC 32 % (30-34) 12/15/16 08:06 RDW 13.9 % (13.2-15.2) 12/15/16 08:06 Plt Count 162 K/mm3 (140-440) 12/15/16 08:06 Lymph % (Auto) 18.9 % (13.4-35.0) 12/15/16 08:06 [place] % (Auto) 12.4 % (0.0-7.3) H 12/15/16 08:06 Eos % (Auto) 3.1 % (0.0-4.3) 12/15/16 08:06 Baso % (Auto) 0.6 % (0.0-1.8) 12/15/16 08:06 Lymph # 1.0 K/mm3 (1.2-5.4) L 12/15/16 08:06 [place] # 0.7 K/mm3 (0.0-0.8) 12/15/16 08:06 Eos # 0.2 K/mm3 (0.0-0.4) 12/15/16 08:06 Baso # 0.0 K/mm3 (0.0-0.1) 12/15/16 08:06 Add Manual Diff Complete 12/09/16 08:41 Total Counted 100 12/09/16 08:41 Seg Neutrophils % 65.0 % (40.0-70.0) 12/15/16 08:06 Seg Neuts % (Manual) 75.0 % (40.0-70.0) H 12/09/16 08:41 Band Neutrophils % 0 % 12/09/16 08:41 Lymphocytes % (Manual) 13.0 % (13.4-35.0) L 12/09/16 08:41 Reactive Lymphs % (Man) 0 % 12/09/16 08:41 Monocytes % (Manual) 8.0 % (0.0-7.3) H 12/09/16 08:41 Eosinophils % (Manual) 3.0 % (0.0-4.3) 12/09/16 08:41 Basophils % (Manual) 1.0 % (0.0-1.8) 12/09/16 08:41 Metamyelocytes % 0 % 12/09/16 08:41 Myelocytes % 0 % 12/09/16 08:41 Promyelocytes % 0 % 12/09/16 08:41 Blast Cells % 0 % 12/09/16 08:41 Nucleated RBC % Not Reportable 12/09/16 08:41 Seg Neutrophils # 3.5 K/mm3 (1.8-7.7) 12/15/16 08:06 Seg Neutrophils # Man 3.8 K/mm3 (1.8-7.7) 12/09/16 08:41 Band Neutrophils # 0.0 K/mm3 12/09/16 08:41 Lymphocytes # (Manual) 0.7 K/mm3 (1.2-5.4) L 12/09/16 08:41 Abs React Lymphs (Man) 0.0 K/mm3 12/09/16 08:41 Monocytes # (Manual) 0.4 K/mm3 (0.0-0.8) 12/09/16 08:41 Eosinophils # (Manual) 0.2 K/mm3 (0.0-0.4) 12/09/16 08:41 Basophils # (Manual) 0.1 K/mm3 (0.0-0.1) 12/09/16 08:41 Metamyelocytes # 0.0 K/mm3 12/09/16 08:41 Myelocytes # 0.0 K/mm3 12/09/16 08:41 Promyelocytes # 0.0 K/mm3 12/09/16 08:41 Blast Cells # 0.0 K/mm3 12/09/16 08:41 WBC Morphology Not Reportable 12/09/16 08:41 Hypersegmented Neuts Not Reportable 12/09/16 08:41 Hyposegmented Neuts Not Reportable 12/09/16 08:41 Hypogranular Neuts Not Reportable 12/09/16 08:41 Smudge Cells Not Reportable 12/09/16 08:41 Toxic Granulation Not Reportable 12/09/16 08:41 Toxic Vacuolation Not Reportable 12/09/16 08:41 Dohle Bodies Not Reportable 12/09/16 08:41 Pelger-Huet Anomaly Not Reportable 12/09/16 08:41 Rich Rods Not Reportable 12/09/16 08:41 Platelet Estimate Appears normal 12/09/16 08:41 Clumped Platelets Not Reportable 12/09/16 08:41 Plt Clumps, EDTA Not Reportable 12/09/16 08:41 Large Platelets Not Reportable 12/09/16 08:41 Giant Platelets Not Reportable 12/09/16 08:41 Platelet Satelliting Not Reportable 12/09/16 08:41 Plt Morphology Comment Not Reportable 12/09/16 08:41 RBC Morphology Not Reportable 12/09/16 08:41 Dimorphic RBCs Not Reportable 12/09/16 08:41 Polychromasia Not Reportable 12/09/16 08:41 Hypochromasia Not Reportable 12/09/16 08:41 Poikilocytosis Not Reportable 12/09/16 08:41 Anisocytosis 1+ 12/09/16 08:41 Microcytosis Not Reportable 12/09/16 08:41 Macrocytosis Not Reportable 12/09/16 08:41 Spherocytes Not Reportable 12/09/16 08:41 Pappenheimer Bodies Not Reportable 12/09/16 08:41 Sickle Cells Not Reportable 12/09/16 08:41 Target Cells Not Reportable 12/09/16 08:41 Tear Drop Cells Few 12/09/16 08:41 Ovalocytes Few 12/09/16 08:41 Helmet Cells Not Reportable 12/09/16 08:41 [place] Bodies Not Reportable 12/09/16 08:41 [employer] Rings Not Reportable 12/09/16 08:41 [place] Cells Not Reportable 12/09/16 08:41 Bite Cells Not Reportable 12/09/16 08:41 Crenated Cell Not Reportable 12/09/16 08:41 Elliptocytes Not Reportable 12/09/16 08:41 Acanthocytes (Spur) Not Reportable 12/09/16 08:41 Rouleaux Not Reportable 12/09/16 08:41 Hemoglobin C Crystals Not Reportable 12/09/16 08:41 Schistocytes Not Reportable 12/09/16 08:41 Malaria parasites Not Reportable 12/09/16 08:41 Gabe Bodies Not Reportable 12/09/16 08:41 Hem Pathologist Commnt No 12/09/16 08:41 PT 14.5 Sec. (12.2-14.9) 11/22/16 07:20 INR 1.14 (0.87-1.13) H 11/22/16 07:20 APTT 37.7 Sec. (24.2-36.6) H 11/22/16 07:37 Activated Clotting Time 175 (74-137) H 11/22/16 14:25 POC ABG pH 7.356 (7.35-7.45) 11/25/16 22:20 POC ABG pCO2 38.1 (35-45) 11/25/16 22:20 POC ABG pO2 67 (80-105) L 11/25/16 22:20 POC ABG HCO3 21.3 11/25/16 22:20 POC ABG Total CO2 22 11/25/16 22:20 POC ABG O2 Sat 92 11/25/16 22:20 POC ABG Base Excess -4 11/25/16 22:20 FiO2 32 % 11/25/16 22:20 Sodium 137 mmol/L (137-145) 12/15/16 05:30 Potassium 3.9 mmol/L (3.6-5.0) 12/15/16 05:30 Chloride 98.6 mmol/L (98-107) 12/15/16 05:30 Carbon Dioxide 28 mmol/L (22-30) 12/15/16 05:30 Anion Gap 14 mmol/L 12/15/16 05:30 BUN 15 mg/dL (7-17) 12/15/16 05:30 Creatinine 2.8 mg/dL (0.7-1.2) H 12/15/16 05:30 Estimated GFR 21 ml/min 12/15/16 05:30 BUN/Creatinine Ratio 5.35 % 12/15/16 05:30 Glucose 105 mg/dL (65-100) H 12/15/16 05:30 POC Glucose 156 (70-105) H 12/15/16 08:49 Osmolality 304 Mosm/kg 12/07/16 10:49 Lactic Acid 1.00 mmol/L (0.7-2.0) 11/26/16 06:11 Uric Acid 10.3 mg/dL (3.5-7.6) H 12/07/16 08:48 Calcium 8.7 mg/dL (8.4-10.2) 12/15/16 05:30 Total Bilirubin 1.10 mg/dL (0.1-1.2) 12/10/16 06:00 AST 25 units/L (5-40) 12/10/16 06:00 ALT 25 units/L (7-56) 12/10/16 06:00 Alkaline Phosphatase 84 units/L (35-129) 12/10/16 06:00 Total Creatine Kinase 188 units/L (30-135) H 12/07/16 08:48 CK-MB (CK-2) 2.7 ng/mL (0.0-4.0) 11/23/16 06:49 CK-MB (CK-2) Rel Index 1.4 (0-4) 11/23/16 06:49 Troponin T 0.012 ng/mL (0.00-0.029) 11/23/16 06:49 C-Reactive Protein 1.20 mg/dL (0.00-1.30) 11/25/16 13:02 Serum Total Protein 6.7 g/dL (6.1-8.1) 12/07/16 10:49 Total Protein 7.9 g/dL (6.3-8.2) 12/10/16 06:00 Albumin 5.1 g/dL (3.9-5) H 12/10/16 06:00 Albumin/Globulin Ratio 1.8 % 12/10/16 06:00 Ykgwd-1-Eoggmcyzb 0.3 g/dL (0.2-0.3) 12/07/16 10:49 Xbbhq-8-Smxftakrr 0.7 g/dL (0.5-0.9) 12/07/16 10:49 Beta Globulins 0.2 g/dL (0.2-0.5) 12/07/16 10:49 Gamma Globulins 0.8 g/dL (0.8-1.7) 12/07/16 10:49 Abnorm Protein Band 1 see below 12/07/16 10:49 PEP Interpretation see below 12/07/16 10:49 TSH 0.610 mlU/mL (0.270-4.200) 11/25/16 20:44 Urine Color Yellow (Yellow) 12/07/16 17:25 Urine Turbidity Slightly-cloudy (Clear) 12/07/16 17:25 Urine pH 5.0 (5.0-7.0) 12/07/16 17:25 Ur Specific [place] 1.018 (1.003-1.030) 12/07/16 17:25 Urine Protein 100 mg/dl mg/dL (Negative) 12/07/16 17:25 Urine Glucose (UA) Neg mg/dL (Negative) 12/07/16 17:25 Urine Ketones Neg mg/dL (Negative) 12/07/16 17:25 Urine Blood Neg (Negative) 12/07/16 17:25 Urine Nitrite Neg (Negative) 12/07/16 17:25 Urine Bilirubin Neg (Negative) 12/07/16 17:25 Urine Urobilinogen < 2.0 mg/dL (<2.0) 12/07/16 17:25 Ur Leukocyte Esterase Neg (Negative) 12/07/16 17:25 Urine WBC (Auto) 9.0 /HPF (0.0-6.0) H 12/07/16 17:25 Urine RBC (Auto) 1.0 /HPF (0.0-6.0) 12/07/16 17:25 U Epithel Cells (Auto) 5.0 /HPF (0-13.0) 12/07/16 17:25 Urine Bacteria (Auto) 2+ /HPF (Negative) 12/04/16 14:30 Amorphous Crystals Few 12/07/16 17:25 Hyaline Casts 22 /LPF 12/07/16 17:25 Urine Eosinophils None seen (None Seen) 12/04/16 14:30 Urine Creatinine 336.8 mg/dL (0.1-20.0) H 12/07/16 17:25 Urine Sodium 13 mEq/L 12/07/16 17:25 Urine Potassium 70.20 mEq/L 11/24/16 21:57 Urine Chloride 31.3 mEq/L (110-250) L 11/24/16 21:57 BENJI Screen Negative (Negative) 12/07/16 10:49 Blood Type O POSITIVE 11/28/16 15:22 Antibody Screen TNR 11/28/16 15:22 HUDSON Antibody Screen Negative 11/28/16 15:22 Crossmatch See Detail 11/28/16 15:22
[2016-12-15] MEDS: HEPARIN IV PRN (14:15)
[2016-12-15 18:33] LABS: ISTAT Base Excess 5; ISTAT DEVICE 0; ISTAT PCO2 41.3 (35-45); ISTAT PH 7.456 (7.35-7.45); ISTAT PO2 61 (80-105); ISTAT SO2 92; ISTAT TCO2 30
[2016-12-15] MEDS: PROTONIX PO SCH (18:58)
[2016-12-15] MEDS: EFFEXOR XR PO SCH (18:58)
[2016-12-15] MEDS: PLAVIX PO SCH (18:58)
[2016-12-15] MEDS: PROCARDIA XL PO SCH (18:58)
[2016-12-15] MEDS: IMDUR PO SCH (18:58)
[2016-12-15] MEDS: ECOTRIN PO SCH (18:58)
[2016-12-16 06:27] LABS: Basophils % (Auto) 0.9 % (0.0-1.8); Eosinophils % (Auto) 1.5 % (0.0-4.3); Hematocrit 25.7 % (30.3-42.9); Hemoglobin 8.3 gm/dl (10.1-14.3); Mean Corpuscular HGB Conc 33 % (30-34); Mean Corpuscular Hemoglobin 29 pg (28-32); Mean Corpuscular Volume 88 fl (79-97); Platelet Count 147 K/mm3 (140-440); Red Blood Count 2.91 M/mm3 (3.65-5.03)
[2016-12-16 06:51] LABS: BUN/Creatinine Ratio 4.28; Calcium 8.4 mg/dL (8.4-10.2); Chloride 98.3 mmol/L (98-107); Potassium 3.9 mmol/L (3.6-5.0)
--- NOTE | 2016-12-16 10:09 | Progress Note ---
Subjective Principal diagnosis: ascites Interval history: Patient was seen today for follow-up on multiple renal related issues Events noted, she has been initiated on renal replacement therapy which she's been tolerating well patient tolerated her hemodialysis treatment well yesterday She has very poor understanding of her dialysis renal failure and wants to go home No acute distress Vitals labs intake output medications reviewed Social history: Reviewed Family history: Reviewed Physical examination Vitals: Reviewed HEENT: Oral mucosa moist Neck: Supple no JVD Chest: Clear to auscultation no crackles Heart: Regular rate and rhythm S1 and S2 heard Abdomen: Soft nontender bowel sounds present Extremity: Mild edema dry skin Dermatology; dry skin Psychiatry: No evidence of agitation or aggression Assessment and plan; Acute kidney injury in a patient who is currently dialysis dependent without any significant improvement of renal function patient needs to monitor her urine output closely advised her to collect urine and give it to nurse every time she urinates She thinks she urinated 2-3 times yesterday Will need reevaluation for hemodialysis in the morning Patient will continue to dialyze at least 3-4 times per week for now and continue to monitor for recovery of renal function Hypertension has been satisfactorily controlled at this point Anemia currently hemoglobin 8.9 Patient will need to continue with renal placement therapy we will continue to monitor for any signs of improvement in renal function Continue with supportive care Patient has been adequately counseled and educated regarding renal related issues all questions have been answered Periodically monitor renal related labs We'll continue to follow and make recommendation from renal standpoin Objective - Vital Signs Vital signs: Vital Signs - 12hr 12/15/16 12/15/16 12/16/16 22:42 22:50 00:00 Temperature 98.9 F Pulse Rate 73 Pulse Rate [ 68 Left Radial] Respiratory 20 Rate Blood Pressure 173/81 Blood Pressure 137/70 [Left Radial Artery] O2 Sat by Pulse 98 100 Oximetry 12/16/16 05:41 Temperature 98.6 F Pulse Rate Pulse Rate [ 67 Left Radial] Respiratory 20 Rate Blood Pressure Blood Pressure 113/59 [Left Radial Artery] O2 Sat by Pulse 100 Oximetry - Lab 12/16/16 06:16 12/16/16 06:16 Most recent lab results Calcium 8.4 mg/dL (8.4-10.2) 12/16/16 06:16 Urine Creatinine 336.8 mg/dL (0.1-20.0) H 12/07/16 17:25 Urine Sodium 13 mEq/L 12/07/16 17:25
--- NOTE | 2016-12-16 10:40 | Progress Note ---
Assessment and Plan Altered mental status -resolved Head CT shows no acute intracranial process Volume overload Hyperkalemia -resolved Coronary artery disease with prior CABG Right and LHC findings: moderate to severe elevated left and right heart filling pressures; moderate to severe pulmonary HTN 3 vessel disease ESTRADA to LAD patent SVG x 2 occluded (Diag and OM) subtotal occlusion of proximal segment of SVG to RCA treated with a drug eluting stent EF 40-45% Acute renal failure secondary to contrast nephropathy initiated on dialysis Acute drop in H&H s/p blood transfusion Ischemic Cardiomyopathy Hypertension Deconditioning Continue medical therapy for coronary artery disease, including dual oral antiplatelet therapy for recent coronary stent. Subjective Date of service: 12/16/16 Principal diagnosis: ascites Interval history: Patient has no complaints. Wants to go home. Objective Vital Signs Temp Pulse Pulse Resp BP BP Pulse Ox 12/16/16 10:10 98.2 F 67 18 142/26 97 12/16/16 05:41 98.6 F 67 20 113/59 100 12/16/16 00:00 98.9 F 68 20 137/70 100 12/15/16 22:50 73 173/81 12/15/16 22:42 98 12/15/16 22:00 18 100 12/15/16 20:00 99.7 F H 72 73 20 173/81 100 12/15/16 18:37 97.8 F 75 16 186/80 95 12/15/16 14:20 99.0 F 72 18 141/70 12/15/16 14:15 70 153/78 12/15/16 14:00 71 141/81 12/15/16 13:45 71 156/80 12/15/16 13:30 78 150/77 12/15/16 13:15 70 149/78 12/15/16 13:00 69 146/68 12/15/16 12:45 68 142/80 12/15/16 12:30 69 155/78 12/15/16 12:15 66 146/75 12/15/16 12:00 68 140/79 12/15/16 11:45 68 151/76 12/15/16 11:30 66 146/73 12/15/16 11:15 66 143/74 12/15/16 11:00 66 141/73 12/15/16 10:45 98.4 F 64 18 149/81 - Physical Examination General: No Apparent Distress HEENT: Positive: PERRL Neck: Positive: trachea midline Cardiac: Positive: Reg Rate and Rhythm Lungs: Positive: Decreased Breath Sounds Neuro: Positive: Grossly Intact, Weakness - Labs and Meds CBC 12/16/16 Range/Units 06:16 WBC 5.0 (4.5-11.0) K/mm3 RBC 2.91 L (3.65-5.03) M/mm3 Hgb 8.3 L (10.1-14.3) gm/dl Hct 25.7 L (30.3-42.9) % Plt Count 147 (140-440) K/mm3 Lymph # 0.9 L (1.2-5.4) K/mm3 [place] # 0.8 (0.0-0.8) K/mm3 Eos # 0.1 (0.0-0.4) K/mm3 Baso # 0.0 (0.0-0.1) K/mm3 Comprehensive Metabolic Panel 12/16/16 Range/Units 06:16 Sodium 139 (137-145) mmol/L Potassium 3.9 (3.6-5.0) mmol/L Chloride 98.3 (98-107) mmol/L Carbon Dioxide 31 H (22-30) mmol/L BUN 9 (7-17) mg/dL Creatinine 2.1 H (0.7-1.2) mg/dL Glucose 175 H (65-100) mg/dL Calcium 8.4 (8.4-10.2) mg/dL
[2016-12-16] MEDS: IMDUR PO SCH (10:46)
[2016-12-16] MEDS: ECOTRIN PO SCH (10:46)
[2016-12-16] MEDS: PLAVIX PO SCH (10:47)
[2016-12-16] MEDS: EFFEXOR XR PO SCH (10:47)
[2016-12-16] MEDS: PROTONIX PO SCH (10:48)
[2016-12-16] MEDS: PROCARDIA XL PO SCH (10:48)
[2016-12-16] MEDS: COREG PO SCH ×2 (10:48→22:42)
[2016-12-16] MEDS: HEPARIN SUB-Q SCH ×2 (10:54→22:44)
--- NOTE | 2016-12-16 13:48 | Progress Note ---
Assessment and Plan (1) Acute encephalopathy Current Visit: Yes Status: Acute Plan to address problem: - doing better overall - suspect may be depression related element and may benefit from psychiatric evaluation - CT brain negative for acute process - continue qhs BIPAP for likely SDB - continue effexor re: depression (2) PATRIA (acute kidney injury) Current Visit: Yes Status: Acute Plan to address problem: - element of contrast induced nephropathy - nephrology evaluation ongoing - follow I's & O's and electrolytes - tolerating dialysis well so far - outpatient sessions and f/up being addressed by social work case manager - continue HD/UF to prevent volume overload (CXR reviewed and no acute process) (3) Anemia Current Visit: Yes Status: Acute Qualifiers: Anemia type: A Iron deficiency anemia type: I Vitamin B12 deficiency anemia type: V Folate deficiency anemia type: F Bone marrow failure anemia type: B Hemolytic anemia type: H Other causes of anemia: O Chronic kidney disease stage: C Plan to address problem: - likely of chronic disease - iron studies - no acute indication for transfusion (4) CAD (coronary artery disease) of artery bypass graft Current Visit: Yes Status: Acute Qualifiers: [place] vs. 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 per back pad inspector (5) Discharge planning issues Current Visit: Yes Status: Acute Plan to address problem: - d/c planning ongoing Subjective Date of service: 12/16/16 Principal diagnosis: Acute Encephalopathy; PATRIA on Dialysis; CAD s/p PCI and stenting Interval history: Seen and examined at bedside; 24 hour events reviewed; nursing and respiratory care staff consulted; no adverse overnight events reported to me; explained that she needs outpatient dialysis set-up before discharge; + cough no expectoration; denies acute chest pains or increased SOB; No N/V/F/C Objective Vital Signs - 12hr 12/16/16 12/16/16 12/16/16 05:41 10:10 10:46 Temperature 98.6 F 98.2 F Pulse Rate 67 Pulse Rate [ 67 67 Left Radial] Respiratory 20 18 Rate Blood Pressure 142/26 Blood Pressure 113/59 142/26 [Left Radial Artery] O2 Sat by Pulse 100 97 Oximetry 12/16/16 10:48 Temperature Pulse Rate 67 Pulse Rate [ Left Radial] Respiratory Rate Blood Pressure 142/26 Blood Pressure [Left Radial Artery] O2 Sat by Pulse Oximetry Constitutional: no acute distress, asleep Eyes: non-icteric ENT: oropharynx moist Neck: supple, no lymphadenopathy Effort: normal Ascultation: Bilateral: diminished breath sounds, rales (scant in posterior bases) Cardiovascular: regular rate and rhythm Gastrointestinal: normoactive bowel sounds, soft, non-tender, non-distended Integumentary: normal Extremities: no cyanosis, no edema, pulses normal, no ischemia or petechiae Neurologic: normal mental status, non-focal exam, pupils equal and round, motor strength normal and Psychiatric: depressed CBC and BMP: 12/17/16 07:52 12/17/16 07:52 ABG, PT/INR, D-dimer: ABG POC ABG pH 7.456 (7.35-7.45) H 12/15/16 16:50 POC ABG pCO2 41.3 (35-45) 12/15/16 16:50 POC ABG pO2 61 (80-105) L 12/15/16 16:50 POC ABG HCO3 29.0 12/15/16 16:50 POC ABG Total CO2 30 12/15/16 16:50 POC ABG O2 Sat 92 12/15/16 16:50 PT/INR, D-dimer PT 14.5 Sec. (12.2-14.9) 11/22/16 07:20 INR 1.14 (0.87-1.13) H 11/22/16 07:20 Abnormal lab findings: Abnormal Labs 11/22/16 11/22/16 11/22/16 07:20 07:20 07:20 WBC RBC 3.52 L Hgb Hct Plt Count Lymph % (Auto) [place] % (Auto) 11.5 H Eos % (Auto) Lymph # Seg Neutrophils % Seg Neuts % (Manual) Lymphocytes % (Manual) Monocytes % (Manual) Lymphocytes # (Manual) INR 1.14 H APTT Activated Clotting Time POC ABG pH POC ABG pO2 Sodium Potassium Chloride 108.0 H Carbon Dioxide BUN 25 H Creatinine 1.4 H Glucose POC Glucose Uric Acid Calcium AST ALT Total Creatine Kinase Albumin Urine WBC (Auto) Urine Creatinine Urine Chloride Crossmatch 11/22/16 11/22/16 11/22/16 07:37 10:46 13:13 WBC RBC Hgb Hct Plt Count Lymph % (Auto) [place] % (Auto) Eos % (Auto) Lymph # Seg Neutrophils % Seg Neuts % (Manual) Lymphocytes % (Manual) Monocytes % (Manual) Lymphocytes # (Manual) INR APTT 37.7 H Activated Clotting Time 327 H 202 H POC ABG pH POC ABG pO2 Sodium Potassium Chloride Carbon Dioxide BUN Creatinine Glucose POC Glucose Uric Acid Calcium AST ALT Total Creatine Kinase Albumin Urine WBC (Auto) Urine Creatinine Urine Chloride Crossmatch 11/22/16 11/23/16 11/23/16 14:25 06:49 06:49 WBC 4.1 L RBC 2.74 L Hgb 7.7 L Hct 23.8 L D Plt Count 135 L Lymph % (Auto) [place] % (Auto) 13.8 H Eos % (Auto) Lymph # Seg Neutrophils % Seg Neuts % (Manual) Lymphocytes % (Manual) Monocytes % (Manual) Lymphocytes # (Manual) INR APTT Activated Clotting Time 175 H POC ABG pH POC ABG pO2 Sodium Potassium Chloride Carbon Dioxide BUN 27 H Creatinine 1.8 H Glucose 137 H POC Glucose Uric Acid Calcium 8.0 L AST ALT Total Creatine Kinase 183 H Albumin Urine WBC (Auto) Urine Creatinine Urine Chloride Crossmatch 11/23/16 11/23/16 11/23/16 11:07 12:45 17:32 WBC RBC 2.98 L Hgb 8.5 L Hct 26.3 L Plt Count Lymph % (Auto) [place] % (Auto) 13.2 H Eos % (Auto) Lymph # Seg Neutrophils % Seg Neuts % (Manual) Lymphocytes % (Manual) Monocytes % (Manual) Lymphocytes # (Manual) INR APTT Activated Clotting Time POC ABG pH POC ABG pO2 Sodium Potassium Chloride Carbon Dioxide BUN Creatinine Glucose POC Glucose 134 H 171 H Uric Acid Calcium AST ALT Total Creatine Kinase Albumin Urine WBC (Auto) Urine Creatinine Urine Chloride Crossmatch 11/23/16 11/24/16 11/24/16 21:24 05:28 05:28 WBC RBC Hgb 8.6 L Hct 26.8 L Plt Count Lymph % (Auto) [place] % (Auto) Eos % (Auto) Lymph # Seg Neutrophils % Seg Neuts % (Manual) Lymphocytes % (Manual) Monocytes % (Manual) Lymphocytes # (Manual) INR APTT Activated Clotting Time POC ABG pH POC ABG pO2 Sodium Potassium 5.9 H D Chloride Carbon Dioxide 19 L BUN 33 H Creatinine 2.7 H Glucose 162 H POC Glucose 174 H Uric Acid Calcium AST ALT Total Creatine Kinase Albumin Urine WBC (Auto) Urine Creatinine Urine Chloride Crossmatch 11/24/16 11/24/16 11/24/16 06:23 07:05 07:09 WBC RBC Hgb Hct Plt Count Lymph % (Auto) [place] % (Auto) Eos % (Auto) Lymph # Seg Neutrophils % Seg Neuts % (Manual) Lymphocytes % (Manual) Monocytes % (Manual) Lymphocytes # (Manual) INR APTT Activated Clotting Time POC ABG pH 7.264 L POC ABG pO2 33 L Sodium Potassium 5.8 H Chloride Carbon Dioxide 20 L BUN 33 H Creatinine 2.8 H Glucose 158 H POC Glucose 209 H Uric Acid Calcium AST 100 H ALT 118 H Total Creatine Kinase Albumin 3.5 L Urine WBC (Auto) Urine Creatinine Urine Chloride Crossmatch 11/24/16 11/24/16 11/24/16 07:19 08:50 11:45 WBC RBC Hgb Hct Plt Count Lymph % (Auto) [place] % (Auto) Eos % (Auto) Lymph # Seg Neutrophils % Seg Neuts % (Manual) Lymphocytes % (Manual) Monocytes % (Manual) Lymphocytes # (Manual) INR APTT Activated Clotting Time POC ABG pH 7.285 L POC ABG pO2 64 L Sodium Potassium Chloride Carbon Dioxide BUN Creatinine Glucose POC Glucose 193 H 169 H Uric Acid Calcium AST ALT Total Creatine Kinase Albumin Urine WBC (Auto) Urine Creatinine Urine Chloride Crossmatch 11/24/16 11/24/16 11/24/16 15:24 15:32 17:14 WBC RBC Hgb Hct Plt Count Lymph % (Auto) [place] % (Auto) Eos % (Auto) Lymph # Seg Neutrophils % Seg Neuts % (Manual) Lymphocytes % (Manual) Monocytes % (Manual) Lymphocytes # (Manual) INR APTT Activated Clotting Time POC ABG pH POC ABG pO2 Sodium Potassium 5.2 H Chloride Carbon Dioxide 20 L BUN 37 H Creatinine 3.0 H Glucose 144 H POC Glucose 195 H Uric Acid Calcium AST ALT Total Creatine Kinase Albumin Urine WBC (Auto) Urine Creatinine Urine Chloride Crossmatch See Detail 11/24/16 11/24/16 11/25/16 21:57 23:39 05:30 WBC RBC Hgb Hct Plt Count Lymph % (Auto) [place] % (Auto) Eos % (Auto) Lymph # Seg Neutrophils % Seg Neuts % (Manual) Lymphocytes % (Manual) Monocytes % (Manual) Lymphocytes # (Manual) INR APTT Activated Clotting Time POC ABG pH POC ABG pO2 Sodium Potassium Chloride Carbon Dioxide BUN Creatinine Glucose POC Glucose 112 H 129 H Uric Acid Calcium AST ALT Total Creatine Kinase Albumin Urine WBC (Auto) Urine Creatinine 295.3 H Urine Chloride 31.3 L Crossmatch 11/25/16 11/25/16 11/25/16 07:00 07:00 08:40 WBC RBC 3.30 L Hgb 9.5 L Hct 29.0 L Plt Count 119 L Lymph % (Auto) [place] % (Auto) 9.5 H Eos % (Auto) Lymph # Seg Neutrophils % 72.7 H Seg Neuts % (Manual) Lymphocytes % (Manual) Monocytes % (Manual) Lymphocytes # (Manual) INR APTT Activated Clotting Time POC ABG pH POC ABG pO2 Sodium Potassium Chloride 110.1 H Carbon Dioxide 18 L BUN 38 H Creatinine 2.6 H Glucose 123 H POC Glucose 129 H Uric Acid Calcium 8.2 L AST ALT Total Creatine Kinase Albumin Urine WBC (Auto) Urine Creatinine Urine Chloride Crossmatch 11/25/16 11/25/16 11/25/16 11:24 12:17 16:16 WBC RBC Hgb Hct Plt Count Lymph % (Auto) [place] % (Auto) Eos % (Auto) Lymph # Seg Neutrophils % Seg Neuts % (Manual) Lymphocytes % (Manual) Monocytes % (Manual) Lymphocytes # (Manual) INR APTT Activated Clotting Time POC ABG pH 7.327 L POC ABG pO2 Sodium Potassium Chloride Carbon Dioxide BUN Creatinine Glucose POC Glucose 142 H 151 H Uric Acid Calcium AST ALT Total Creatine Kinase Albumin Urine WBC (Auto) Urine Creatinine Urine Chloride Crossmatch 11/25/16 11/25/16 11/26/16 21:48 22:20 00:58 WBC RBC 3.23 L Hgb 9.2 L Hct 27.9 L Plt Count 119 L Lymph % (Auto) 10.2 L [place] % (Auto) 7.6 H Eos % (Auto) Lymph # 0.8 L Seg Neutrophils % 79.9 H Seg Neuts % (Manual) Lymphocytes % (Manual) Monocytes % (Manual) Lymphocytes # (Manual) INR APTT Activated Clotting Time POC ABG pH POC ABG pO2 67 L Sodium Potassium Chloride Carbon Dioxide BUN Creatinine Glucose POC Glucose 149 H Uric Acid Calcium AST ALT Total Creatine Kinase Albumin Urine WBC (Auto) Urine Creatinine Urine Chloride Crossmatch 11/26/16 11/26/16 11/26/16 06:11 07:40 11:28 WBC RBC Hgb Hct Plt Count Lymph % (Auto) [place] % (Auto) Eos % (Auto) Lymph # Seg Neutrophils % Seg Neuts % (Manual) Lymphocytes % (Manual) Monocytes % (Manual) Lymphocytes # (Manual) INR APTT Activated Clotting Time POC ABG pH POC ABG pO2 Sodium Potassium Chloride Carbon Dioxide 21 L BUN 41 H Creatinine 2.5 H Glucose 151 H POC Glucose 144 H 168 H Uric Acid Calcium 8.1 L AST ALT Total Creatine Kinase Albumin Urine WBC (Auto) Urine Creatinine Urine Chloride Crossmatch 11/26/16 11/27/16 11/27/16 15:50 00:03 03:45 WBC RBC Hgb Hct Plt Count Lymph % (Auto) [place] % (Auto) Eos % (Auto) Lymph # Seg Neutrophils % Seg Neuts % (Manual) Lymphocytes % (Manual) Monocytes % (Manual) Lymphocytes # (Manual) INR APTT Activated Clotting Time POC ABG pH POC ABG pO2 Sodium Potassium Chloride Carbon Dioxide BUN 46 H Creatinine 2.8 H Glucose 147 H POC Glucose 153 H 183 H Uric Acid Calcium 8.1 L AST ALT Total Creatine Kinase Albumin Urine WBC (Auto) Urine Creatinine Urine Chloride Crossmatch 11/27/16 11/27/16 11/27/16 06:26 07:32 11:53 WBC RBC Hgb Hct Plt Count Lymph % (Auto) [place] % (Auto) Eos % (Auto) Lymph # Seg Neutrophils % Seg Neuts % (Manual) Lymphocytes % (Manual) Monocytes % (Manual) Lymphocytes # (Manual) INR APTT Activated Clotting Time POC ABG pH POC ABG pO2 Sodium Potassium Chloride Carbon Dioxide BUN Creatinine Glucose POC Glucose 208 H 193 H 180 H Uric Acid Calcium AST ALT Total Creatine Kinase Albumin Urine WBC (Auto) Urine Creatinine Urine Chloride Crossmatch 11/27/16 11/27/16 11/28/16 16:42 21:51 08:13 WBC RBC Hgb Hct Plt Count Lymph % (Auto) [place] % (Auto) Eos % (Auto) Lymph # Seg Neutrophils % Seg Neuts % (Manual) Lymphocytes % (Manual) Monocytes % (Manual) Lymphocytes # (Manual) INR APTT Activated Clotting Time POC ABG pH POC ABG pO2 Sodium Potassium Chloride Carbon Dioxide BUN Creatinine Glucose POC Glucose 161 H 167 H 151 H Uric Acid Calcium AST ALT Total Creatine Kinase Albumin Urine WBC (Auto) Urine Creatinine Urine Chloride Crossmatch 11/28/16 11/28/16 11/28/16 10:01 10:01 12:30 WBC RBC Hgb 8.5 L Hct 25.3 L Plt Count Lymph % (Auto) [place] % (Auto) Eos % (Auto) Lymph # Seg Neutrophils % Seg Neuts % (Manual) Lymphocytes % (Manual) Monocytes % (Manual) Lymphocytes # (Manual) INR APTT Activated Clotting Time POC ABG pH POC ABG pO2 Sodium 136 L Potassium Chloride Carbon Dioxide BUN 50 H Creatinine 2.8 H Glucose 143 H POC Glucose 154 H Uric Acid Calcium 8.1 L AST ALT Total Creatine Kinase Albumin Urine WBC (Auto) Urine Creatinine Urine Chloride Crossmatch 11/28/16 11/28/16 11/28/16 15:22 16:55 20:40 WBC RBC Hgb Hct Plt Count Lymph % (Auto) [place] % (Auto) Eos % (Auto) Lymph # Seg Neutrophils % Seg Neuts % (Manual) Lymphocytes % (Manual) Monocytes % (Manual) Lymphocytes # (Manual) INR APTT Activated Clotting Time POC ABG pH POC ABG pO2 Sodium Potassium Chloride Carbon Dioxide BUN Creatinine Glucose POC Glucose 191 H 177 H Uric Acid Calcium AST ALT Total Creatine Kinase Albumin Urine WBC (Auto) Urine Creatinine Urine Chloride Crossmatch See Detail 11/29/16 11/29/16 11/29/16 07:18 07:18 07:31 WBC RBC Hgb 9.5 L Hct 28.2 L Plt Count Lymph % (Auto) [place] % (Auto) Eos % (Auto) Lymph # Seg Neutrophils % Seg Neuts % (Manual) Lymphocytes % (Manual) Monocytes % (Manual) Lymphocytes # (Manual) INR APTT Activated Clotting Time POC ABG pH POC ABG pO2 Sodium 136 L Potassium Chloride Carbon Dioxide BUN 51 H Creatinine 2.7 H Glucose 120 H POC Glucose 127 H Uric Acid Calcium 8.1 L AST ALT Total Creatine Kinase Albumin Urine WBC (Auto) Urine Creatinine Urine Chloride Crossmatch 11/29/16 11/29/16 11/29/16 12:49 17:35 20:31 WBC RBC Hgb Hct Plt Count Lymph % (Auto) [place] % (Auto) Eos % (Auto) Lymph # Seg Neutrophils % Seg Neuts % (Manual) Lymphocytes % (Manual) Monocytes % (Manual) Lymphocytes # (Manual) INR APTT Activated Clotting Time POC ABG pH POC ABG pO2 Sodium Potassium Chloride Carbon Dioxide BUN Creatinine Glucose POC Glucose 213 H 179 H 154 H Uric Acid Calcium AST ALT Total Creatine Kinase Albumin Urine WBC (Auto) Urine Creatinine Urine Chloride Crossmatch 11/30/16 11/30/16 11/30/16 08:25 09:52 16:07 WBC RBC Hgb Hct Plt Count Lymph % (Auto) [place] % (Auto) Eos % (Auto) Lymph # Seg Neutrophils % Seg Neuts % (Manual) Lymphocytes % (Manual) Monocytes % (Manual) Lymphocytes # (Manual) INR APTT Activated Clotting Time POC ABG pH POC ABG pO2 Sodium Potassium Chloride Carbon Dioxide BUN 52 H Creatinine 3.0 H Glucose 156 H POC Glucose 127 H 216 H Uric Acid Calcium AST ALT Total Creatine Kinase Albumin Urine WBC (Auto) Urine Creatinine Urine Chloride Crossmatch 11/30/16 12/01/16 12/01/16 20:45 08:34 08:48 WBC RBC Hgb Hct Plt Count Lymph % (Auto) [place] % (Auto) Eos % (Auto) Lymph # Seg Neutrophils % Seg Neuts % (Manual) Lymphocytes % (Manual) Monocytes % (Manual) Lymphocytes # (Manual) INR APTT Activated Clotting Time POC ABG pH POC ABG pO2 Sodium 136 L Potassium Chloride Carbon Dioxide BUN 50 H Creatinine 3.0 H Glucose 124 H POC Glucose 197 H 136 H Uric Acid Calcium AST ALT Total Creatine Kinase Albumin Urine WBC (Auto) Urine Creatinine Urine Chloride Crossmatch 12/01/16 12/01/16 12/01/16 11:35 16:56 22:08 WBC RBC Hgb Hct Plt Count Lymph % (Auto) [place] % (Auto) Eos % (Auto) Lymph # Seg Neutrophils % Seg Neuts % (Manual) Lymphocytes % (Manual) Monocytes % (Manual) Lymphocytes # (Manual) INR APTT Activated Clotting Time POC ABG pH POC ABG pO2 Sodium Potassium Chloride Carbon Dioxide BUN Creatinine Glucose POC Glucose 205 H 210 H 157 H Uric Acid Calcium AST ALT Total Creatine Kinase Albumin Urine WBC (Auto) Urine Creatinine Urine Chloride Crossmatch 12/02/16 12/02/16 12/02/16 05:52 08:47 15:16 WBC RBC Hgb Hct Plt Count Lymph % (Auto) [place] % (Auto) Eos % (Auto) Lymph # Seg Neutrophils % Seg Neuts % (Manual) Lymphocytes % (Manual) Monocytes % (Manual) Lymphocytes # (Manual) INR APTT Activated Clotting Time POC ABG pH POC ABG pO2 Sodium Potassium Chloride Carbon Dioxide BUN 48 H Creatinine 2.7 H Glucose 136 H POC Glucose 134 H 226 H Uric Acid Calcium AST ALT Total Creatine Kinase Albumin Urine WBC (Auto) Urine Creatinine Urine Chloride Crossmatch 12/02/16 12/03/16 12/03/16 22:53 05:58 05:58 WBC 4.2 L RBC 3.37 L Hgb 9.7 L Hct 29.4 L Plt Count Lymph % (Auto) [place] % (Auto) Eos % (Auto) Lymph # Seg Neutrophils % Seg Neuts % (Manual) Lymphocytes % (Manual) Monocytes % (Manual) Lymphocytes # (Manual) INR APTT Activated Clotting Time POC ABG pH POC ABG pO2 Sodium Potassium Chloride Carbon Dioxide BUN 47 H Creatinine 2.7 H Glucose 142 H POC Glucose 235 H Uric Acid Calcium AST ALT Total Creatine Kinase Albumin Urine WBC (Auto) Urine Creatinine Urine Chloride Crossmatch 12/03/16 12/03/16 12/03/16 13:04 16:47 21:50 WBC RBC Hgb Hct Plt Count Lymph % (Auto) [place] % (Auto) Eos % (Auto) Lymph # Seg Neutrophils % Seg Neuts % (Manual) Lymphocytes % (Manual) Monocytes % (Manual) Lymphocytes # (Manual) INR APTT Activated Clotting Time POC ABG pH POC ABG pO2 Sodium Potassium Chloride Carbon Dioxide BUN Creatinine Glucose POC Glucose 135 H 140 H 170 H Uric Acid Calcium AST ALT Total Creatine Kinase Albumin Urine WBC (Auto) Urine Creatinine Urine Chloride Crossmatch 12/04/16 12/04/16 12/04/16 07:26 12:21 16:43 WBC RBC Hgb Hct Plt Count Lymph % (Auto) [place] % (Auto) Eos % (Auto) Lymph # Seg Neutrophils % Seg Neuts % (Manual) Lymphocytes % (Manual) Monocytes % (Manual) Lymphocytes # (Manual) INR APTT Activated Clotting Time POC ABG pH POC ABG pO2 Sodium Potassium Chloride Carbon Dioxide BUN Creatinine Glucose POC Glucose 145 H 203 H 210 H Uric Acid Calcium AST ALT Total Creatine Kinase Albumin Urine WBC (Auto) Urine Creatinine Urine Chloride Crossmatch 12/04/16 12/05/16 12/05/16 21:41 07:54 07:54 WBC RBC 3.10 L Hgb 9.0 L Hct 26.9 L Plt Count Lymph % (Auto) [place] % (Auto) 13.8 H Eos % (Auto) 5.3 H Lymph # 1.1 L Seg Neutrophils % Seg Neuts % (Manual) Lymphocytes % (Manual) Monocytes % (Manual) Lymphocytes # (Manual) INR APTT Activated Clotting Time POC ABG pH POC ABG pO2 Sodium Potassium Chloride Carbon Dioxide BUN 51 H Creatinine 3.7 H Glucose 132 H POC Glucose 211 H Uric Acid Calcium AST ALT Total Creatine Kinase Albumin Urine WBC (Auto) Urine Creatinine Urine Chloride Crossmatch 12/05/16 12/05/16 12/05/16 08:30 11:46 22:02 WBC RBC Hgb Hct Plt Count Lymph % (Auto) [place] % (Auto) Eos % (Auto) Lymph # Seg Neutrophils % Seg Neuts % (Manual) Lymphocytes % (Manual) Monocytes % (Manual) Lymphocytes # (Manual) INR APTT Activated Clotting Time POC ABG pH POC ABG pO2 Sodium Potassium Chloride Carbon Dioxide BUN Creatinine Glucose POC Glucose 140 H 225 H 165 H Uric Acid Calcium AST ALT Total Creatine Kinase Albumin Urine WBC (Auto) Urine Creatinine Urine Chloride Crossmatch 12/06/16 12/06/16 12/06/16 08:17 09:10 09:10 WBC RBC Hgb Hct Plt Count Lymph % (Auto) [place] % (Auto) Eos % (Auto) Lymph # Seg Neutrophils % Seg Neuts % (Manual) Lymphocytes % (Manual) Monocytes % (Manual) Lymphocytes # (Manual) INR APTT Activated Clotting Time POC ABG pH POC ABG pO2 Sodium Potassium Chloride 97.6 L Carbon Dioxide BUN 50 H Creatinine 3.8 H Glucose 126 H POC Glucose 166 H Uric Acid 10.0 H Calcium AST ALT Total Creatine Kinase Albumin Urine WBC (Auto) Urine Creatinine Urine Chloride Crossmatch 12/06/16 12/06/16 12/06/16 12:18 17:39 22:31 WBC RBC Hgb Hct Plt Count Lymph % (Auto) [place] % (Auto) Eos % (Auto) Lymph # Seg Neutrophils % Seg Neuts % (Manual) Lymphocytes % (Manual) Monocytes % (Manual) Lymphocytes # (Manual) INR APTT Activated Clotting Time POC ABG pH POC ABG pO2 Sodium Potassium Chloride Carbon Dioxide BUN Creatinine Glucose POC Glucose 188 H 176 H 157 H Uric Acid Calcium AST ALT Total Creatine Kinase Albumin Urine WBC (Auto) Urine Creatinine Urine Chloride Crossmatch 12/07/16 12/07/16 12/07/16 08:48 08:49 09:01 WBC RBC Hgb Hct Plt Count Lymph % (Auto) [place] % (Auto) Eos % (Auto) Lymph # Seg Neutrophils % Seg Neuts % (Manual) Lymphocytes % (Manual) Monocytes % (Manual) Lymphocytes # (Manual) INR APTT Activated Clotting Time POC ABG pH POC ABG pO2 Sodium Potassium Chloride 97.9 L Carbon Dioxide BUN 52 H Creatinine 4.2 H Glucose 105 H POC Glucose 107 H Uric Acid 10.3 H Calcium AST ALT Total Creatine Kinase 188 H Albumin Urine WBC (Auto) Urine Creatinine Urine Chloride Crossmatch 12/07/16 12/07/16 12/07/16 12:27 16:59 17:25 WBC RBC Hgb Hct Plt Count Lymph % (Auto) [place] % (Auto) Eos % (Auto) Lymph # Seg Neutrophils % Seg Neuts % (Manual) Lymphocytes % (Manual) Monocytes % (Manual) Lymphocytes # (Manual) INR APTT Activated Clotting Time POC ABG pH POC ABG pO2 Sodium Potassium Chloride Carbon Dioxide BUN Creatinine Glucose POC Glucose 163 H 124 H Uric Acid Calcium AST ALT Total Creatine Kinase Albumin Urine WBC (Auto) 9.0 H Urine Creatinine Urine Chloride Crossmatch 12/07/16 12/07/16 12/08/16 17:25 22:04 07:53 WBC RBC Hgb Hct Plt Count Lymph % (Auto) [place] % (Auto) Eos % (Auto) Lymph # Seg Neutrophils % Seg Neuts % (Manual) Lymphocytes % (Manual) Monocytes % (Manual) Lymphocytes # (Manual) INR APTT Activated Clotting Time POC ABG pH POC ABG pO2 Sodium Potassium Chloride Carbon Dioxide BUN Creatinine Glucose POC Glucose 133 H 168 H Uric Acid Calcium AST ALT Total Creatine Kinase Albumin Urine WBC (Auto) Urine Creatinine 336.8 H Urine Chloride Crossmatch 12/08/16 12/08/16 12/08/16 08:05 12:17 22:09 WBC RBC Hgb Hct Plt Count Lymph % (Auto) [place] % (Auto) Eos % (Auto) Lymph # Seg Neutrophils % Seg Neuts % (Manual) Lymphocytes % (Manual) Monocytes % (Manual) Lymphocytes # (Manual) INR APTT Activated Clotting Time POC ABG pH POC ABG pO2 Sodium Potassium Chloride Carbon Dioxide BUN 55 H Creatinine 5.0 H Glucose 142 H POC Glucose 140 H 154 H Uric Acid Calcium AST ALT Total Creatine Kinase Albumin Urine WBC (Auto) Urine Creatinine Urine Chloride Crossmatch 12/09/16 12/09/16 12/09/16 06:40 07:47 08:41 WBC RBC 3.09 L Hgb 8.8 L Hct 27.0 L Plt Count Lymph % (Auto) [place] % (Auto) Eos % (Auto) Lymph # Seg Neutrophils % Seg Neuts % (Manual) 75.0 H Lymphocytes % (Manual) 13.0 L Monocytes % (Manual) 8.0 H Lymphocytes # (Manual) 0.7 L INR APTT Activated Clotting Time POC ABG pH POC ABG pO2 Sodium Potassium Chloride Carbon Dioxide BUN 23 H Creatinine 3.1 H Glucose 108 H POC Glucose 115 H Uric Acid Calcium AST ALT Total Creatine Kinase Albumin Urine WBC (Auto) Urine Creatinine Urine Chloride Crossmatch 12/09/16 12/09/16 12/09/16 08:41 12:26 22:19 WBC RBC Hgb Hct Plt Count Lymph % (Auto) [place] % (Auto) Eos % (Auto) Lymph # Seg Neutrophils % Seg Neuts % (Manual) Lymphocytes % (Manual) Monocytes % (Manual) Lymphocytes # (Manual) INR APTT Activated Clotting Time POC ABG pH POC ABG pO2 Sodium Potassium Chloride Carbon Dioxide BUN 23 H Creatinine 3.0 H Glucose 108 H POC Glucose 140 H 139 H Uric Acid Calcium AST ALT Total Creatine Kinase Albumin Urine WBC (Auto) Urine Creatinine Urine Chloride Crossmatch 12/10/16 12/10/16 12/10/16 06:00 06:00 06:00 WBC RBC 3.47 L Hgb 9.8 L Hct Plt Count Lymph % (Auto) [place] % (Auto) Eos % (Auto) Lymph # Seg Neutrophils % Seg Neuts % (Manual) Lymphocytes % (Manual) Monocytes % (Manual) Lymphocytes # (Manual) INR APTT Activated Clotting Time POC ABG pH POC ABG pO2 Sodium Potassium Chloride Carbon Dioxide BUN Creatinine 1.9 H 1.9 H Glucose 120 H 120 H POC Glucose Uric Acid Calcium AST ALT Total Creatine Kinase Albumin 5.1 H Urine WBC (Auto) Urine Creatinine Urine Chloride Crossmatch 12/10/16 12/10/16 12/10/16 08:34 16:38 21:00 WBC RBC Hgb Hct Plt Count Lymph % (Auto) [place] % (Auto) Eos % (Auto) Lymph # Seg Neutrophils % Seg Neuts % (Manual) Lymphocytes % (Manual) Monocytes % (Manual) Lymphocytes # (Manual) INR APTT Activated Clotting Time POC ABG pH POC ABG pO2 Sodium Potassium Chloride Carbon Dioxide BUN Creatinine Glucose POC Glucose 137 H 109 H 155 H Uric Acid Calcium AST ALT Total Creatine Kinase Albumin Urine WBC (Auto) Urine Creatinine Urine Chloride Crossmatch 12/11/16 12/11/16 12/11/16 06:02 12:33 17:36 WBC RBC Hgb Hct Plt Count Lymph % (Auto) [place] % (Auto) Eos % (Auto) Lymph # Seg Neutrophils % Seg Neuts % (Manual) Lymphocytes % (Manual) Monocytes % (Manual) Lymphocytes # (Manual) INR APTT Activated Clotting Time POC ABG pH POC ABG pO2 Sodium Potassium Chloride 97.0 L Carbon Dioxide 31 H BUN Creatinine 2.3 H Glucose 133 H POC Glucose 131 H 145 H Uric Acid Calcium AST ALT Total Creatine Kinase Albumin Urine WBC (Auto) Urine Creatinine Urine Chloride Crossmatch 12/11/16 12/12/16 12/12/16 21:50 05:58 07:46 WBC RBC Hgb Hct Plt Count Lymph % (Auto) [place] % (Auto) Eos % (Auto) Lymph # Seg Neutrophils % Seg Neuts % (Manual) Lymphocytes % (Manual) Monocytes % (Manual) Lymphocytes # (Manual) INR APTT Activated Clotting Time POC ABG pH POC ABG pO2 Sodium Potassium Chloride Carbon Dioxide BUN Creatinine 3.5 H D Glucose 127 H POC Glucose 158 H 148 H Uric Acid Calcium AST ALT Total Creatine Kinase Albumin Urine WBC (Auto) Urine Creatinine Urine Chloride Crossmatch 12/12/16 12/12/16 12/12/16 11:42 15:55 21:56 WBC RBC Hgb Hct Plt Count Lymph % (Auto) [place] % (Auto) Eos % (Auto) Lymph # Seg Neutrophils % Seg Neuts % (Manual) Lymphocytes % (Manual) Monocytes % (Manual) Lymphocytes # (Manual) INR APTT Activated Clotting Time POC ABG pH POC ABG pO2 Sodium Potassium Chloride Carbon Dioxide BUN Creatinine Glucose POC Glucose 189 H 167 H 160 H Uric Acid Calcium AST ALT Total Creatine Kinase Albumin Urine WBC (Auto) Urine Creatinine Urine Chloride Crossmatch 12/13/16 12/13/16 12/13/16 04:31 04:31 08:03 WBC RBC 3.29 L Hgb 9.4 L Hct 28.9 L Plt Count Lymph % (Auto) [place] % (Auto) 9.2 H Eos % (Auto) Lymph # 1.1 L Seg Neutrophils % Seg Neuts % (Manual) Lymphocytes % (Manual) Monocytes % (Manual) Lymphocytes # (Manual) INR APTT Activated Clotting Time POC ABG pH POC ABG pO2 Sodium Potassium Chloride Carbon Dioxide BUN Creatinine 4.8 H Glucose 119 H POC Glucose 128 H Uric Acid Calcium AST ALT Total Creatine Kinase Albumin Urine WBC (Auto) Urine Creatinine Urine Chloride Crossmatch 12/13/16 12/13/16 12/14/16 17:16 21:37 05:57 WBC RBC 3.40 L Hgb 9.7 L Hct 30.0 L Plt Count Lymph % (Auto) [place] % (Auto) 11.2 H Eos % (Auto) Lymph # Seg Neutrophils % Seg Neuts % (Manual) Lymphocytes % (Manual) Monocytes % (Manual) Lymphocytes # (Manual) INR APTT Activated Clotting Time POC ABG pH POC ABG pO2 Sodium Potassium Chloride Carbon Dioxide BUN Creatinine Glucose POC Glucose 122 H 158 H Uric Acid Calcium AST ALT Total Creatine Kinase Albumin Urine WBC (Auto) Urine Creatinine Urine Chloride Crossmatch 12/14/16 12/14/16 12/14/16 05:57 08:29 12:53 WBC RBC Hgb Hct Plt Count Lymph % (Auto) [place] % (Auto) Eos % (Auto) Lymph # Seg Neutrophils % Seg Neuts % (Manual) Lymphocytes % (Manual) Monocytes % (Manual) Lymphocytes # (Manual) INR APTT Activated Clotting Time POC ABG pH POC ABG pO2 Sodium Potassium Chloride Carbon Dioxide BUN Creatinine 2.8 H Glucose POC Glucose 124 H 181 H Uric Acid Calcium AST ALT Total Creatine Kinase Albumin Urine WBC (Auto) Urine Creatinine Urine Chloride Crossmatch 12/14/16 12/14/16 12/15/16 17:50 22:59 05:30 WBC RBC Hgb Hct Plt Count Lymph % (Auto) [place] % (Auto) Eos % (Auto) Lymph # Seg Neutrophils % Seg Neuts % (Manual) Lymphocytes % (Manual) Monocytes % (Manual) Lymphocytes # (Manual) INR APTT Activated Clotting Time POC ABG pH POC ABG pO2 Sodium Potassium Chloride Carbon Dioxide BUN Creatinine 2.8 H Glucose 105 H POC Glucose 121 H 108 H Uric Acid Calcium AST ALT Total Creatine Kinase Albumin Urine WBC (Auto) Urine Creatinine Urine Chloride Crossmatch 12/15/16 12/15/16 12/15/16 08:06 08:49 16:50 WBC RBC 3.09 L Hgb 8.9 L Hct 27.6 L Plt Count Lymph % (Auto) [place] % (Auto) 12.4 H Eos % (Auto) Lymph # 1.0 L Seg Neutrophils % Seg Neuts % (Manual) Lymphocytes % (Manual) Monocytes % (Manual) Lymphocytes # (Manual) INR APTT Activated Clotting Time POC ABG pH 7.456 H POC ABG pO2 61 L Sodium Potassium Chloride Carbon Dioxide BUN Creatinine Glucose POC Glucose 156 H Uric Acid Calcium AST ALT Total Creatine Kinase Albumin Urine WBC (Auto) Urine Creatinine Urine Chloride Crossmatch 12/15/16 12/15/16 12/16/16 17:36 21:49 06:16 WBC RBC 2.91 L Hgb 8.3 L Hct 25.7 L Plt Count Lymph % (Auto) [place] % (Auto) 15.2 H Eos % (Auto) Lymph # 0.9 L Seg Neutrophils % Seg Neuts % (Manual) Lymphocytes % (Manual) Monocytes % (Manual) Lymphocytes # (Manual) INR APTT Activated Clotting Time POC ABG pH POC ABG pO2 Sodium Potassium Chloride Carbon Dioxide BUN Creatinine Glucose POC Glucose 177 H 203 H Uric Acid Calcium AST ALT Total Creatine Kinase Albumin Urine WBC (Auto) Urine Creatinine Urine Chloride Crossmatch 12/16/16 06:16 WBC RBC Hgb Hct Plt Count Lymph % (Auto) [place] % (Auto) Eos % (Auto) Lymph # Seg Neutrophils % Seg Neuts % (Manual) Lymphocytes % (Manual) Monocytes % (Manual) Lymphocytes # (Manual) INR APTT Activated Clotting Time POC ABG pH POC ABG pO2 Sodium Potassium Chloride Carbon Dioxide 31 H BUN Creatinine 2.1 H Glucose 175 H POC Glucose Uric Acid Calcium AST ALT Total Creatine Kinase Albumin Urine WBC (Auto) Urine Creatinine Urine Chloride Crossmatch Chest x-ray: image reviewed
--- NOTE | 2016-12-16 14:44 | Progress Note ---
Assessment and Plan Assessment and plan: Patient is a 56-year-old woman with a history of CKD 3 with baseline cr of 1.8, hyperlipidemia, hypertension, CAD, CHF with ejection fraction of 40-50% in 2013 and ischemic cardiomyopathy who presented for an outpatient cardiac catheterization 11/22/16 and had PCI of SVG to RCA with 99% to 0% with 3.0 mm DE stent. Patient was admitted by Cardiology in the hospital to monitor creatinine before discharge. Repeat labs in the morning did reveal an increase in creatinine around 2.7. Patient was also lethargic with altered sensorium and was placed in the ICU for close observation. Hospitalist consulted and . She was also on nitro drip but with no fever blood pressure was adequately controlled. Subsequently the Lasix was discontinued and HERO inhibitor discontinue due to the rise in creatinine. Nephrology and pulmonology/ ccm were consulted. It was determined that the patient will benefit from dialysis. Patient was subsequent transferred out of the ICU to the floor as she remained stable. D/w Dr. Arrieta who was seeing her until 12/13/16, sometime between 12/08/16 and 12/12/16, we became primary attending. I really don't know details. -Ischemic cardiomyopathy status post PCI of SVG TO RCA: Cardiology following. Continue dual antiplatelet therapy -Abdominal pain: Resolved. Likely constipation, lactulose prn and also fleet enema. no ascities noted as previously suspected, GI Consulted -Acute kidney injury on chronic kidney disease stage III likely contrast nephropathy.-Creatinine 1 back up to 3 with no clear evidence of renal recovery. Still a little uric, Nephrology following. PER Nephrology no ACEI OR ARBS on DISCHARGE. -Acute toxic Metabolic encephalopathy- Resolved CT of the brain negative. -Acute blood loss anemia- S/P 2 units packed red blood cell transfusion. Hemoglobin is stable. We'll check intermittent. No GI bleed noted. -Hypertension- Stable -Anasarca-improved. Patient was initially treated with IV Lasix and albumin this has been since discontinued. Expect improvement with dialysis. -Moderate to severe pulmonary hypertension- cardiology following. -DVT and GI prophylaxis -Plan of care discussed in detail with the patient and (over the phone per wishes). Awaiting to see if she has progressed to ESRD to setup outpt Hemodialysis D/W Case management and pulmonology: send Hepatitis panel for Hemodialysis setup ; Awaiting HD chair History Interval history: Patient seen and examined. Follow up on acute renal failure. Overnight uneventful. No cp, sob, n/v or severe headaches. Imaging, old records, testing, labs, nursing notes reviewed. Hospitalist Physical - Physical exam Narrative exam: GEN: WDWN, NAD, AWAKE, ALERT, ORIENTATED x 3 CVS: RRR, NORMAL S1S2 LUNGS/CHEST: NORMAL CHEST EXPANSION B, GOOD AIR ENTRY B ABD: SOFT, NTND, GBS, NO REBOUND OR GUARDING MSK: FROM X 4 EXTREMITIES NEURO: CN 2-12 GROSSLY INTACT except left eye blindness, NO new FOCAL DEFICITS PSY: CALM - Constitutional Vitals: Temp Pulse Resp BP Pulse Ox 98.2 F 67 18 142/26 97 12/16/16 10:10 12/16/16 10:48 12/16/16 10:10 12/16/16 10:48 12/16/16 10:10 General appearance: Present: no acute distress Results - Labs CBC & Chem 7: 12/16/16 06:16 12/16/16 06:16 Labs: Laboratory Last Values WBC 5.0 K/mm3 (4.5-11.0) 12/16/16 06:16 RBC 2.91 M/mm3 (3.65-5.03) L 12/16/16 06:16 Hgb 8.3 gm/dl (10.1-14.3) L 12/16/16 06:16 Hct 25.7 % (30.3-42.9) L 12/16/16 06:16 MCV 88 fl (79-97) 12/16/16 06:16 MCH 29 pg (28-32) 12/16/16 06:16 MCHC 33 % (30-34) 12/16/16 06:16 RDW 14.0 % (13.2-15.2) 12/16/16 06:16 Plt Count 147 K/mm3 (140-440) 12/16/16 06:16 Lymph % (Auto) 18.3 % (13.4-35.0) 12/16/16 06:16 [place] % (Auto) 15.2 % (0.0-7.3) H 12/16/16 06:16 Eos % (Auto) 1.5 % (0.0-4.3) 12/16/16 06:16 Baso % (Auto) 0.9 % (0.0-1.8) 12/16/16 06:16 Lymph # 0.9 K/mm3 (1.2-5.4) L 12/16/16 06:16 [place] # 0.8 K/mm3 (0.0-0.8) 12/16/16 06:16 Eos # 0.1 K/mm3 (0.0-0.4) 12/16/16 06:16 Baso # 0.0 K/mm3 (0.0-0.1) 12/16/16 06:16 Add Manual Diff Complete 12/09/16 08:41 Total Counted 100 12/09/16 08:41 Seg Neutrophils % 64.1 % (40.0-70.0) 12/16/16 06:16 Seg Neuts % (Manual) 75.0 % (40.0-70.0) H 12/09/16 08:41 Band Neutrophils % 0 % 12/09/16 08:41 Lymphocytes % (Manual) 13.0 % (13.4-35.0) L 12/09/16 08:41 Reactive Lymphs % (Man) 0 % 12/09/16 08:41 Monocytes % (Manual) 8.0 % (0.0-7.3) H 12/09/16 08:41 Eosinophils % (Manual) 3.0 % (0.0-4.3) 12/09/16 08:41 Basophils % (Manual) 1.0 % (0.0-1.8) 12/09/16 08:41 Metamyelocytes % 0 % 12/09/16 08:41 Myelocytes % 0 % 12/09/16 08:41 Promyelocytes % 0 % 12/09/16 08:41 Blast Cells % 0 % 12/09/16 08:41 Nucleated RBC % Not Reportable 12/09/16 08:41 Seg Neutrophils # 3.2 K/mm3 (1.8-7.7) 12/16/16 06:16 Seg Neutrophils # Man 3.8 K/mm3 (1.8-7.7) 12/09/16 08:41 Band Neutrophils # 0.0 K/mm3 12/09/16 08:41 Lymphocytes # (Manual) 0.7 K/mm3 (1.2-5.4) L 12/09/16 08:41 Abs React Lymphs (Man) 0.0 K/mm3 12/09/16 08:41 Monocytes # (Manual) 0.4 K/mm3 (0.0-0.8) 12/09/16 08:41 Eosinophils # (Manual) 0.2 K/mm3 (0.0-0.4) 12/09/16 08:41 Basophils # (Manual) 0.1 K/mm3 (0.0-0.1) 12/09/16 08:41 Metamyelocytes # 0.0 K/mm3 12/09/16 08:41 Myelocytes # 0.0 K/mm3 12/09/16 08:41 Promyelocytes # 0.0 K/mm3 12/09/16 08:41 Blast Cells # 0.0 K/mm3 12/09/16 08:41 WBC Morphology Not Reportable 12/09/16 08:41 Hypersegmented Neuts Not Reportable 12/09/16 08:41 Hyposegmented Neuts Not Reportable 12/09/16 08:41 Hypogranular Neuts Not Reportable 12/09/16 08:41 Smudge Cells Not Reportable 12/09/16 08:41 Toxic Granulation Not Reportable 12/09/16 08:41 Toxic Vacuolation Not Reportable 12/09/16 08:41 Dohle Bodies Not Reportable 12/09/16 08:41 Pelger-Huet Anomaly Not Reportable 12/09/16 08:41 Rich Rods Not Reportable 12/09/16 08:41 Platelet Estimate Appears normal 12/09/16 08:41 Clumped Platelets Not Reportable 12/09/16 08:41 Plt Clumps, EDTA Not Reportable 12/09/16 08:41 Large Platelets Not Reportable 12/09/16 08:41 Giant Platelets Not Reportable 12/09/16 08:41 Platelet Satelliting Not Reportable 12/09/16 08:41 Plt Morphology Comment Not Reportable 12/09/16 08:41 RBC Morphology Not Reportable 12/09/16 08:41 Dimorphic RBCs Not Reportable 12/09/16 08:41 Polychromasia Not Reportable 12/09/16 08:41 Hypochromasia Not Reportable 12/09/16 08:41 Poikilocytosis Not Reportable 12/09/16 08:41 Anisocytosis 1+ 12/09/16 08:41 Microcytosis Not Reportable 12/09/16 08:41 Macrocytosis Not Reportable 12/09/16 08:41 Spherocytes Not Reportable 12/09/16 08:41 Pappenheimer Bodies Not Reportable 12/09/16 08:41 Sickle Cells Not Reportable 12/09/16 08:41 Target Cells Not Reportable 12/09/16 08:41 Tear Drop Cells Few 12/09/16 08:41 Ovalocytes Few 12/09/16 08:41 Helmet Cells Not Reportable 12/09/16 08:41 [place] Bodies Not Reportable 12/09/16 08:41 [place] Rings Not Reportable 12/09/16 08:41 [place] Cells Not Reportable 12/09/16 08:41 Bite Cells Not Reportable 12/09/16 08:41 Crenated Cell Not Reportable 12/09/16 08:41 Elliptocytes Not Reportable 12/09/16 08:41 Acanthocytes (Spur) Not Reportable 12/09/16 08:41 [place]leaux Not Reportable 12/09/16 08:41 Hemoglobin C Crystals Not Reportable 12/09/16 08:41 Schistocytes Not Reportable 12/09/16 08:41 Malaria parasites Not Reportable 12/09/16 08:41 Gabe Bodies Not Reportable 12/09/16 08:41 Hem Pathologist Commnt No 12/09/16 08:41 PT 14.5 Sec. (12.2-14.9) 11/22/16 07:20 INR 1.14 (0.87-1.13) H 11/22/16 07:20 APTT 37.7 Sec. (24.2-36.6) H 11/22/16 07:37 Activated Clotting Time 175 (74-137) H 11/22/16 14:25 POC ABG pH 7.456 (7.35-7.45) H 12/15/16 16:50 POC ABG pCO2 41.3 (35-45) 12/15/16 16:50 POC ABG pO2 61 (80-105) L 12/15/16 16:50 POC ABG HCO3 29.0 12/15/16 16:50 POC ABG Total CO2 30 12/15/16 16:50 POC ABG O2 Sat 92 12/15/16 16:50 POC ABG Base Excess 5 12/15/16 16:50 FiO2 21 % 12/15/16 16:50 Sodium 139 mmol/L (137-145) 12/16/16 06:16 Potassium 3.9 mmol/L (3.6-5.0) 12/16/16 06:16 Chloride 98.3 mmol/L (98-107) 12/16/16 06:16 Carbon Dioxide 31 mmol/L (22-30) H 12/16/16 06:16 Anion Gap 14 mmol/L 12/16/16 06:16 BUN 9 mg/dL (7-17) 12/16/16 06:16 Creatinine 2.1 mg/dL (0.7-1.2) H 12/16/16 06:16 Estimated GFR 29 ml/min 12/16/16 06:16 BUN/Creatinine Ratio 4.28 % 12/16/16 06:16 Glucose 175 mg/dL (65-100) H 12/16/16 06:16 POC Glucose 203 (70-105) H 12/15/16 21:49 Osmolality 304 Mosm/kg 12/07/16 10:49 Lactic Acid 1.00 mmol/L (0.7-2.0) 11/26/16 06:11 Uric Acid 10.3 mg/dL (3.5-7.6) H 12/07/16 08:48 Calcium 8.4 mg/dL (8.4-10.2) 12/16/16 06:16 Total Bilirubin 1.10 mg/dL (0.1-1.2) 12/10/16 06:00 AST 25 units/L (5-40) 12/10/16 06:00 ALT 25 units/L (7-56) 12/10/16 06:00 Alkaline Phosphatase 84 units/L (35-129) 12/10/16 06:00 Total Creatine Kinase 188 units/L (30-135) H 12/07/16 08:48 CK-MB (CK-2) 2.7 ng/mL (0.0-4.0) 11/23/16 06:49 CK-MB (CK-2) Rel Index 1.4 (0-4) 11/23/16 06:49 Troponin T 0.012 ng/mL (0.00-0.029) 11/23/16 06:49 C-Reactive Protein 1.20 mg/dL (0.00-1.30) 11/25/16 13:02 Serum Total Protein 6.7 g/dL (6.1-8.1) 12/07/16 10:49 Total Protein 7.9 g/dL (6.3-8.2) 12/10/16 06:00 Albumin 5.1 g/dL (3.9-5) H 12/10/16 06:00 Albumin/Globulin Ratio 1.8 % 12/10/16 06:00 Suxti-8-Klqlpkhzc 0.3 g/dL (0.2-0.3) 12/07/16 10:49 Lyaus-7-Vaubaftet 0.7 g/dL (0.5-0.9) 12/07/16 10:49 Beta Globulins 0.2 g/dL (0.2-0.5) 12/07/16 10:49 Gamma Globulins 0.8 g/dL (0.8-1.7) 12/07/16 10:49 Abnorm Protein Band 1 see below 12/07/16 10:49 PEP Interpretation see below 12/07/16 10:49 TSH 0.610 mlU/mL (0.270-4.200) 11/25/16 20:44 Urine Color Yellow (Yellow) 12/07/16 17:25 Urine Turbidity Slightly-cloudy (Clear) 12/07/16 17:25 Urine pH 5.0 (5.0-7.0) 12/07/16 17:25 Ur Specific [place] 1.018 (1.003-1.030) 12/07/16 17:25 Urine Protein 100 mg/dl mg/dL (Negative) 12/07/16 17:25 Urine Glucose (UA) Neg mg/dL (Negative) 12/07/16 17:25 Urine Ketones Neg mg/dL (Negative) 12/07/16 17:25 Urine Blood Neg (Negative) 12/07/16 17:25 Urine Nitrite Neg (Negative) 12/07/16 17:25 Urine Bilirubin Neg (Negative) 12/07/16 17:25 Urine Urobilinogen < 2.0 mg/dL (<2.0) 12/07/16 17:25 Ur Leukocyte Esterase Neg (Negative) 12/07/16 17:25 Urine WBC (Auto) 9.0 /HPF (0.0-6.0) H 12/07/16 17:25 Urine RBC (Auto) 1.0 /HPF (0.0-6.0) 12/07/16 17:25 U Epithel Cells (Auto) 5.0 /HPF (0-13.0) 12/07/16 17:25 Urine Bacteria (Auto) 2+ /HPF (Negative) 12/04/16 14:30 Amorphous Crystals Few 12/07/16 17:25 Hyaline Casts 22 /LPF 12/07/16 17:25 Urine Eosinophils None seen (None Seen) 12/04/16 14:30 Urine Creatinine 336.8 mg/dL (0.1-20.0) H 12/07/16 17:25 Urine Sodium 13 mEq/L 12/07/16 17:25 Urine Potassium 70.20 mEq/L 11/24/16 21:57 Urine Chloride 31.3 mEq/L (110-250) L 11/24/16 21:57 BENJI Screen Negative (Negative) 12/07/16 10:49 Blood Type O POSITIVE 11/28/16 15:22 Antibody Screen TNR 11/28/16 15:22 HUDSON Antibody Screen Negative 11/28/16 15:22 Crossmatch See Detail 11/28/16 15:22
--- NOTE | 2016-12-16 22:34 | Progress Note ---
Assessment and Plan Volume overload Coronary artery disease with prior CABG Right and LHC findings: moderate to severe elevated left and right heart filling pressures; moderate to severe pulmonary HTN 3 vessel disease ESTRADA to LAD patent SVG x 2 occluded (Diag and OM) subtotal occlusion of proximal segment of SVG to RCA treated with a drug eluting stent EF 40-45% Acute renal failure secondary to contrast nephropathy initiated on dialysis Acute drop in H&H s/p blood transfusion Ischemic Cardiomyopathy Hypertension Deconditioning Continue medical therapy for coronary artery disease, including dual oral antiplatelet therapy for recent coronary stent. Stable from cardiac standpoint for DC Subjective Date of service: 12/17/16 Principal diagnosis: ascites Interval history: No acute events. Resting comfortably. No chest pain or SOB. Objective Vital Signs Temp Pulse Pulse Resp BP BP Pulse Ox 12/16/16 20:23 98.6 F 69 20 118/57 100 12/16/16 17:35 98.0 F 68 18 112/56 100 12/16/16 14:51 70 12/16/16 10:48 67 142/26 12/16/16 10:46 67 142/26 12/16/16 10:10 98.2 F 67 18 142/26 97 12/16/16 10:00 98 12/16/16 09:00 98 12/16/16 05:41 98.6 F 67 20 113/59 100 12/16/16 00:00 98.9 F 68 20 137/70 100 12/15/16 22:50 73 173/81 12/15/16 22:42 98 - Physical Examination General: No Apparent Distress HEENT: Positive: PERRL Neck: Positive: trachea midline Neuro: Positive: Grossly Intact, Weakness Abdomen: Positive: Soft, Distended Incision: Cardiac Cath Site Extremities: Present: +1 Edema - Labs and Meds CBC 12/16/16 Range/Units 06:16 WBC 5.0 (4.5-11.0) K/mm3 RBC 2.91 L (3.65-5.03) M/mm3 Hgb 8.3 L (10.1-14.3) gm/dl Hct 25.7 L (30.3-42.9) % Plt Count 147 (140-440) K/mm3 Lymph # 0.9 L (1.2-5.4) K/mm3 [place] # 0.8 (0.0-0.8) K/mm3 Eos # 0.1 (0.0-0.4) K/mm3 Baso # 0.0 (0.0-0.1) K/mm3 Comprehensive Metabolic Panel 12/16/16 Range/Units 06:16 Sodium 139 (137-145) mmol/L Potassium 3.9 (3.6-5.0) mmol/L Chloride 98.3 (98-107) mmol/L Carbon Dioxide 31 H (22-30) mmol/L BUN 9 (7-17) mg/dL Creatinine 2.1 H (0.7-1.2) mg/dL Glucose 175 H (65-100) mg/dL Calcium 8.4 (8.4-10.2) mg/dL
[2016-12-17 08:24] LABS: Basophils % (Auto) 0.6 % (0.0-1.8); Eosinophils % (Auto) 3.2 % (0.0-4.3); Hematocrit 26.6 % (30.3-42.9); Hemoglobin 8.7 gm/dl (10.1-14.3); Mean Corpuscular HGB Conc 33 % (30-34); Mean Corpuscular Hemoglobin 29 pg (28-32); Mean Corpuscular Volume 89 fl (79-97); Platelet Count 154 K/mm3 (140-440); Red Cell Distribution Width 14.1 % (13.2-15.2); White Blood Count 4.4 K/mm3 (4.5-11.0)
[2016-12-17 08:39] LABS: BUN/Creatinine Ratio 4.19; Chloride 98.1 mmol/L (98-107); Potassium 3.7 mmol/L (3.6-5.0)
[2016-12-17] MEDS ORDERED: NACL 0.9% 100 ML IV PRN (11:19)
--- NOTE | 2016-12-17 11:21 | Progress Note ---
Subjective Principal diagnosis: ascites Interval history: Patient was seen today for follow-up on multiple renal related issues Denies any acute complaints tolerating dialysis treatment well Better educated about acute renal failure and need for dialysis Vitals labs intake output medications reviewed Social history: Reviewed Family history: Reviewed Physical examination Vitals: Reviewed HEENT: Oral mucosa moist Neck: Supple no JVD Chest: Clear to auscultation no crackles Heart: Regular rate and rhythm S1 and S2 heard Abdomen: Soft nontender bowel sounds present Extremity: Mild edema dry skin Dermatology; dry skin Psychiatry: No evidence of agitation or aggression Assessment and plan; Acute kidney injury in a patient who is currently dialysis dependent without any significant improvement of renal function She will need to dialyze on Monday, erythropoietin with hemodialysis patient needs to monitor her urine output closely advised her to collect urine and give it to nurse every time she urinates She needs to maintain strict input and output record Hypertension has been satisfactorily controlled at this point Anemia currently hemoglobin 8.9, will need erythropoietin with dialysis Patient will need to continue with renal placement therapy we will continue to monitor for any signs of improvement in renal function Continue with supportive care Patient has been adequately counseled and educated regarding renal related issues all questions have been answered Periodically monitor renal related labs We'll continue to follow and make recommendation from renal standpoin Objective - Vital Signs Vital signs: Vital Signs - 12hr 12/16/16 12/17/16 12/17/16 23:46 00:46 00:57 Temperature 97.6 F Pulse Rate 68 Pulse Rate [ 59 L Left Radial] Respiratory 18 Rate Blood Pressure 121/67 [Left Radial Artery] O2 Sat by Pulse 100 98 Oximetry 12/17/16 12/17/16 05:39 10:35 Temperature 98.9 F 98.6 F Pulse Rate Pulse Rate [ 64 74 Left Radial] Respiratory 18 18 Rate Blood Pressure 133/64 135/63 [Left Radial Artery] O2 Sat by Pulse 96 100 Oximetry - Lab 12/17/16 07:52 12/17/16 07:52 Most recent lab results Calcium 9.0 mg/dL (8.4-10.2) 12/17/16 07:52 Urine Creatinine 336.8 mg/dL (0.1-20.0) H 12/07/16 17:25 Urine Sodium 13 mEq/L 12/07/16 17:25
[2016-12-17] MEDS: COREG PO SCH ×2 (11:43→22:59)
[2016-12-17] MEDS: ECOTRIN PO SCH (11:43)
[2016-12-17] MEDS: HEPARIN SUB-Q SCH ×2 (11:44→22:59)
[2016-12-17] MEDS: IMDUR PO SCH (11:44)
[2016-12-17] MEDS: EFFEXOR XR PO SCH (11:44)
[2016-12-17] MEDS: PROCARDIA XL PO SCH (11:44)
[2016-12-17] MEDS: PLAVIX PO SCH (11:44)
[2016-12-17] MEDS: PROTONIX PO SCH (11:45)
[2016-12-17] MEDS ORDERED: NACL 0.9 (PRIMING MACHINE ONLY DIALYSIS) MC ONE (12:57)
--- NOTE | 2016-12-17 13:11 | Progress Note ---
Assessment and Plan Assessment and plan: Patient is a 56-year-old woman with a history of CKD 3 with baseline cr of 1.8, hyperlipidemia, hypertension, CAD, CHF with ejection fraction of 40-50% in 2013 and ischemic cardiomyopathy who presented for an outpatient cardiac catheterization 11/22/16 and had PCI of SVG to RCA with 99% to 0% with 3.0 mm DE stent. Patient was admitted by Cardiology in the hospital to monitor creatinine before discharge. Repeat labs in the morning did reveal an increase in creatinine around 2.7. Patient was also lethargic with altered sensorium and was placed in the ICU for close observation. Hospitalist consulted and . She was also on nitro drip but with no fever blood pressure was adequately controlled. Subsequently the Lasix was discontinued and HERO inhibitor discontinue due to the rise in creatinine. Nephrology and pulmonology/ ccm were consulted. It was determined that the patient will benefit from dialysis. Patient was subsequent transferred out of the ICU to the floor as she remained stable. D/w Dr. Arrieta who was seeing her until 12/13/16, sometime between 12/08/16 and 12/12/16, we became primary attending. I really don't know details. -Ischemic cardiomyopathy status post PCI of SVG TO RCA: Cardiology following. Continue dual antiplatelet therapy -Abdominal pain: Resolved. Likely constipation, lactulose prn and also fleet enema. no ascities noted as previously suspected, GI Consulted -Acute kidney injury on chronic kidney disease stage III likely contrast nephropathy.-Creatinine 1 back up to 3 with no clear evidence of renal recovery. Still a little uric, Nephrology following. PER Nephrology no ACEI OR ARBS on DISCHARGE. -Acute toxic Metabolic encephalopathy- Resolved CT of the brain negative. -Acute blood loss anemia- S/P 2 units packed red blood cell transfusion. Hemoglobin is stable. We'll check intermittent. No GI bleed noted. -Hypertension- Stable -Anasarca-improved. Patient was initially treated with IV Lasix and albumin this has been since discontinued. Expect improvement with dialysis. -Moderate to severe pulmonary hypertension- cardiology following. -DVT and GI prophylaxis -Plan of care discussed in detail with the patient and (over the phone per wishes). Awaiting to see if she has progressed to ESRD to setup outpt Hemodialysis D/W Case management and pulmonology: send Hepatitis panel for Hemodialysis setup ; Awaiting HD chair 12/17/16: CR went back up, most likely will be HD dependant, HD setup pending History Interval history: Patient seen and examined. Follow up on acute renal failure. Overnight uneventful. No cp, sob, n/v or severe headaches. Imaging, old records, testing, labs, nursing notes reviewed. Hospitalist Physical - Physical exam Narrative exam: GEN: WDWN, NAD, AWAKE, ALERT, ORIENTATED x 3 CVS: RRR, NORMAL S1S2 LUNGS/CHEST: NORMAL CHEST EXPANSION B, GOOD AIR ENTRY B ABD: SOFT, NTND, GBS, NO REBOUND OR GUARDING MSK: FROM X 4 EXTREMITIES NEURO: CN 2-12 GROSSLY INTACT except left eye blindness, NO new FOCAL DEFICITS PSY: CALM - Constitutional Vitals: Temp Pulse Resp BP Pulse Ox 98.6 F 74 18 135/63 100 12/17/16 10:35 12/17/16 10:35 12/17/16 10:35 12/17/16 10:35 12/17/16 10:35 General appearance: Present: no acute distress Results - Labs CBC & Chem 7: 12/17/16 07:52 12/17/16 07:52 Labs: Laboratory Last Values WBC 4.4 K/mm3 (4.5-11.0) L 12/17/16 07:52 RBC 3.00 M/mm3 (3.65-5.03) L 12/17/16 07:52 Hgb 8.7 gm/dl (10.1-14.3) L 12/17/16 07:52 Hct 26.6 % (30.3-42.9) L 12/17/16 07:52 MCV 89 fl (79-97) 12/17/16 07:52 MCH 29 pg (28-32) 12/17/16 07:52 MCHC 33 % (30-34) 12/17/16 07:52 RDW 14.1 % (13.2-15.2) 12/17/16 07:52 Plt Count 154 K/mm3 (140-440) 12/17/16 07:52 Lymph % (Auto) 24.7 % (13.4-35.0) 12/17/16 07:52 [place] % (Auto) 13.5 % (0.0-7.3) H 12/17/16 07:52 Eos % (Auto) 3.2 % (0.0-4.3) 12/17/16 07:52 Baso % (Auto) 0.6 % (0.0-1.8) 12/17/16 07:52 Lymph # 1.1 K/mm3 (1.2-5.4) L 12/17/16 07:52 [place] # 0.6 K/mm3 (0.0-0.8) 12/17/16 07:52 Eos # 0.1 K/mm3 (0.0-0.4) 12/17/16 07:52 Baso # 0.0 K/mm3 (0.0-0.1) 12/17/16 07:52 Add Manual Diff Complete 12/09/16 08:41 Total Counted 100 12/09/16 08:41 Seg Neutrophils % 58.0 % (40.0-70.0) 12/17/16 07:52 Seg Neuts % (Manual) 75.0 % (40.0-70.0) H 12/09/16 08:41 Band Neutrophils % 0 % 12/09/16 08:41 Lymphocytes % (Manual) 13.0 % (13.4-35.0) L 12/09/16 08:41 Reactive Lymphs % (Man) 0 % 12/09/16 08:41 Monocytes % (Manual) 8.0 % (0.0-7.3) H 12/09/16 08:41 Eosinophils % (Manual) 3.0 % (0.0-4.3) 12/09/16 08:41 Basophils % (Manual) 1.0 % (0.0-1.8) 12/09/16 08:41 Metamyelocytes % 0 % 12/09/16 08:41 Myelocytes % 0 % 12/09/16 08:41 Promyelocytes % 0 % 12/09/16 08:41 Blast Cells % 0 % 12/09/16 08:41 Nucleated RBC % Not Reportable 12/09/16 08:41 Seg Neutrophils # 2.5 K/mm3 (1.8-7.7) 12/17/16 07:52 Seg Neutrophils # Man 3.8 K/mm3 (1.8-7.7) 12/09/16 08:41 Band Neutrophils # 0.0 K/mm3 12/09/16 08:41 Lymphocytes # (Manual) 0.7 K/mm3 (1.2-5.4) L 12/09/16 08:41 Abs React Lymphs (Man) 0.0 K/mm3 12/09/16 08:41 Monocytes # (Manual) 0.4 K/mm3 (0.0-0.8) 12/09/16 08:41 Eosinophils # (Manual) 0.2 K/mm3 (0.0-0.4) 12/09/16 08:41 Basophils # (Manual) 0.1 K/mm3 (0.0-0.1) 12/09/16 08:41 Metamyelocytes # 0.0 K/mm3 12/09/16 08:41 Myelocytes # 0.0 K/mm3 12/09/16 08:41 Promyelocytes # 0.0 K/mm3 12/09/16 08:41 Blast Cells # 0.0 K/mm3 12/09/16 08:41 WBC Morphology Not Reportable 12/09/16 08:41 Hypersegmented Neuts Not Reportable 12/09/16 08:41 Hyposegmented Neuts Not Reportable 12/09/16 08:41 Hypogranular Neuts Not Reportable 12/09/16 08:41 Smudge Cells Not Reportable 12/09/16 08:41 Toxic Granulation Not Reportable 12/09/16 08:41 Toxic Vacuolation Not Reportable 12/09/16 08:41 Dohle Bodies Not Reportable 12/09/16 08:41 Pelger-Huet Anomaly Not Reportable 12/09/16 08:41 Rich Rods Not Reportable 12/09/16 08:41 Platelet Estimate Appears normal 12/09/16 08:41 Clumped Platelets Not Reportable 12/09/16 08:41 Plt Clumps, EDTA Not Reportable 12/09/16 08:41 Large Platelets Not Reportable 12/09/16 08:41 Giant Platelets Not Reportable 12/09/16 08:41 Platelet Satelliting Not Reportable 12/09/16 08:41 Plt Morphology Comment Not Reportable 12/09/16 08:41 RBC Morphology Not Reportable 12/09/16 08:41 Dimorphic RBCs Not Reportable 12/09/16 08:41 Polychromasia Not Reportable 12/09/16 08:41 Hypochromasia Not Reportable 12/09/16 08:41 Poikilocytosis Not Reportable 12/09/16 08:41 Anisocytosis 1+ 12/09/16 08:41 Microcytosis Not Reportable 12/09/16 08:41 Macrocytosis Not Reportable 12/09/16 08:41 Spherocytes Not Reportable 12/09/16 08:41 Pappenheimer Bodies Not Reportable 12/09/16 08:41 Sickle Cells Not Reportable 12/09/16 08:41 Target Cells Not Reportable 12/09/16 08:41 Tear Drop Cells Few 12/09/16 08:41 Ovalocytes Few 12/09/16 08:41 Helmet Cells Not Reportable 12/09/16 08:41 Beltran-Kingsford Bodies Not Reportable 12/09/16 08:41 Hensel Rings Not Reportable 12/09/16 08:41 Dona Cells Not Reportable 12/09/16 08:41 Bite Cells Not Reportable 12/09/16 08:41 Crenated Cell Not Reportable 12/09/16 08:41 Elliptocytes Not Reportable 12/09/16 08:41 Acanthocytes (Spur) Not Reportable 12/09/16 08:41 Rouleaux Not Reportable 12/09/16 08:41 Hemoglobin C Crystals Not Reportable 12/09/16 08:41 Schistocytes Not Reportable 12/09/16 08:41 Malaria parasites Not Reportable 12/09/16 08:41 Gabe Bodies Not Reportable 12/09/16 08:41 Hem Pathologist Commnt No 12/09/16 08:41 PT 14.5 Sec. (12.2-14.9) 11/22/16 07:20 INR 1.14 (0.87-1.13) H 11/22/16 07:20 APTT 37.7 Sec. (24.2-36.6) H 11/22/16 07:37 Activated Clotting Time 175 (74-137) H 11/22/16 14:25 POC ABG pH 7.456 (7.35-7.45) H 12/15/16 16:50 POC ABG pCO2 41.3 (35-45) 12/15/16 16:50 POC ABG pO2 61 (80-105) L 12/15/16 16:50 POC ABG HCO3 29.0 12/15/16 16:50 POC ABG Total CO2 30 12/15/16 16:50 POC ABG O2 Sat 92 12/15/16 16:50 POC ABG Base Excess 5 12/15/16 16:50 FiO2 21 % 12/15/16 16:50 Sodium 138 mmol/L (137-145) 12/17/16 07:52 Potassium 3.7 mmol/L (3.6-5.0) 12/17/16 07:52 Chloride 98.1 mmol/L (98-107) 12/17/16 07:52 Carbon Dioxide 26 mmol/L (22-30) 12/17/16 07:52 Anion Gap 18 mmol/L 12/17/16 07:52 BUN 13 mg/dL (7-17) 12/17/16 07:52 Creatinine 3.1 mg/dL (0.7-1.2) H 12/17/16 07:52 Estimated GFR 19 ml/min 12/17/16 07:52 BUN/Creatinine Ratio 4.19 % 12/17/16 07:52 Glucose 111 mg/dL (65-100) H 12/17/16 07:52 POC Glucose 144 (70-105) H 12/16/16 21:23 Osmolality 304 Mosm/kg 12/07/16 10:49 Lactic Acid 1.00 mmol/L (0.7-2.0) 11/26/16 06:11 Uric Acid 10.3 mg/dL (3.5-7.6) H 12/07/16 08:48 Calcium 9.0 mg/dL (8.4-10.2) 12/17/16 07:52 Total Bilirubin 1.10 mg/dL (0.1-1.2) 12/10/16 06:00 AST 25 units/L (5-40) 12/10/16 06:00 ALT 25 units/L (7-56) 12/10/16 06:00 Alkaline Phosphatase 84 units/L (35-129) 12/10/16 06:00 Total Creatine Kinase 188 units/L (30-135) H 12/07/16 08:48 CK-MB (CK-2) 2.7 ng/mL (0.0-4.0) 11/23/16 06:49 CK-MB (CK-2) Rel Index 1.4 (0-4) 11/23/16 06:49 Troponin T 0.012 ng/mL (0.00-0.029) 11/23/16 06:49 C-Reactive Protein 1.20 mg/dL (0.00-1.30) 11/25/16 13:02 Serum Total Protein 6.7 g/dL (6.1-8.1) 12/07/16 10:49 Total Protein 7.9 g/dL (6.3-8.2) 12/10/16 06:00 Albumin 5.1 g/dL (3.9-5) H 12/10/16 06:00 Albumin/Globulin Ratio 1.8 % 12/10/16 06:00 Sfowe-7-Mfdrmdgwi 0.3 g/dL (0.2-0.3) 12/07/16 10:49 Xidam-0-Aaftynphw 0.7 g/dL (0.5-0.9) 12/07/16 10:49 Beta Globulins 0.2 g/dL (0.2-0.5) 12/07/16 10:49 Gamma Globulins 0.8 g/dL (0.8-1.7) 12/07/16 10:49 Abnorm Protein Band 1 see below 12/07/16 10:49 PEP Interpretation see below 12/07/16 10:49 TSH 0.610 mlU/mL (0.270-4.200) 11/25/16 20:44 Urine Color Yellow (Yellow) 12/07/16 17:25 Urine Turbidity Slightly-cloudy (Clear) 12/07/16 17:25 Urine pH 5.0 (5.0-7.0) 12/07/16 17:25 Ur Specific [place] 1.018 (1.003-1.030) 12/07/16 17:25 Urine Protein 100 mg/dl mg/dL (Negative) 12/07/16 17:25 Urine Glucose (UA) Neg mg/dL (Negative) 12/07/16 17:25 Urine Ketones Neg mg/dL (Negative) 12/07/16 17:25 Urine Blood Neg (Negative) 12/07/16 17:25 Urine Nitrite Neg (Negative) 12/07/16 17:25 Urine Bilirubin Neg (Negative) 12/07/16 17:25 Urine Urobilinogen < 2.0 mg/dL (<2.0) 12/07/16 17:25 Ur Leukocyte Esterase Neg (Negative) 12/07/16 17:25 Urine WBC (Auto) 9.0 /HPF (0.0-6.0) H 12/07/16 17:25 Urine RBC (Auto) 1.0 /HPF (0.0-6.0) 12/07/16 17:25 U Epithel Cells (Auto) 5.0 /HPF (0-13.0) 12/07/16 17:25 Urine Bacteria (Auto) 2+ /HPF (Negative) 12/04/16 14:30 Amorphous Crystals Few 12/07/16 17:25 Hyaline Casts 22 /LPF 12/07/16 17:25 Urine Eosinophils None seen (None Seen) 12/04/16 14:30 Urine Creatinine 336.8 mg/dL (0.1-20.0) H 12/07/16 17:25 Urine Sodium 13 mEq/L 12/07/16 17:25 Urine Potassium 70.20 mEq/L 11/24/16 21:57 Urine Chloride 31.3 mEq/L (110-250) L 11/24/16 21:57 BENJI Screen Negative (Negative) 12/07/16 10:49 Hepatitis A IgM Ab Non-reactive (NonReactive) 12/16/16 15:12 Hep Bs Antigen Non-reactive (Negative) 12/16/16 15:12 Hep B Core IgM Ab Non-reactive (NonReactive) 12/16/16 15:12 Hepatitis C Antibody Non-reactive (NonReactive) 12/16/16 15:12 Blood Type O POSITIVE 11/28/16 15:22 Antibody Screen TNR 11/28/16 15:22 HUDSON Antibody Screen Negative 11/28/16 15:22 Crossmatch See Detail 11/28/16 15:22
[2016-12-17] MEDS: PROCRIT IV PRN (13:53)
--- NOTE | 2016-12-17 17:21 | Progress Note ---
Assessment and Plan Patient alert, awake.. No acute respiratory distress.No complaint of chest pain or shortness of breath..Patient is on 3 litres O2 and O2 saturation 100%. - Patient Problems (1) PATRIA (acute kidney injury) Current Visit: Yes Status: Acute Plan to address problem: Management as per nephrology. (2) Acute encephalopathy Current Visit: Yes Status: Acute Plan to address problem: Patient more alert. Encephalopathy improving. (3) Anemia Current Visit: Yes Status: Acute Qualifiers: Anemia type: A Iron deficiency anemia type: I Vitamin B12 deficiency anemia type: V Folate deficiency anemia type: F Bone marrow failure anemia type: B Hemolytic anemia type: H Other causes of anemia: O Chronic kidney disease stage: C Plan to address problem: Management as per primary care. (4) CAD (coronary artery disease) of artery bypass graft Current Visit: Yes Status: Acute Qualifiers: [place] vs. transplanted heart: N Associated angina: A Plan to address problem: Management as per cardiology. (5) Obesity (BMI 30-39.9) Current Visit: Yes Status: Acute Plan to address problem: Weight reduction diet. (6) Sleep apnea Current Visit: Yes Status: Acute Qualifiers: Sleep apnea type: S Plan to address problem: Possible sleep apnea. BIPAP standby in the room. Recommend sleep study as out patient. Subjective Date of service: 12/17/16 Principal diagnosis: Acute Encephalopathy; PATRIA on Dialysis; CAD s/p PCI and stenting Interval history: Patient alert, awake.. No acute respiratory distress.No complaint of chest pain or shortness of breath..Patient is on 3 litres O2 and O2 saturation 100%. Objective Vital Signs - 12hr 12/17/16 12/17/16 12/17/16 05:39 10:35 11:00 Temperature 98.9 F 98.6 F 98.6 F Pulse Rate 94 H Pulse Rate [ 64 74 Left Radial] Respiratory 18 18 18 Rate Blood Pressure 121/66 Blood Pressure 133/64 135/63 [Left Radial Artery] O2 Sat by Pulse 96 100 Oximetry 12/17/16 12/17/16 12/17/16 12:00 12:15 12:30 Temperature Pulse Rate 99 H 91 H 90 Pulse Rate [ Left Radial] Respiratory Rate Blood Pressure 120/60 139/76 135/72 Blood Pressure [Left Radial Artery] O2 Sat by Pulse Oximetry 12/17/16 12/17/1612/17/17 12:45 13:00 13:15 Temperature Pulse Rate 91 H 88 96 H Pulse Rate [ Left Radial] Respiratory Rate Blood Pressure 140/75 121/69 128/69 Blood Pressure [Left Radial Artery] O2 Sat by Pulse Oximetry 12/17/16 12/17/16 12/17/16 13:30 13:45 14:00 Temperature Pulse Rate 71 71 71 Pulse Rate [ Left Radial] Respiratory Rate Blood Pressure 127/69 129/69 128/66 Blood Pressure [Left Radial Artery] O2 Sat by Pulse Oximetry 12/17/16 12/17/16 12/17/16 14:15 14:30 14:45 Temperature Pulse Rate 77 71 72 Pulse Rate [ Left Radial] Respiratory Rate Blood Pressure 130/71 130/66 129/66 Blood Pressure [Left Radial Artery] O2 Sat by Pulse Oximetry Constitutional: no acute distress, asleep Eyes: non-icteric ENT: oropharynx moist Neck: supple, no lymphadenopathy Effort: normal Ascultation: Bilateral: diminished breath sounds, rales (scant in posterior bases) Cardiovascular: regular rate and rhythm Gastrointestinal: normoactive bowel sounds, soft, non-tender, non-distended Integumentary: normal Extremities: no cyanosis, no edema, pulses normal, no ischemia or petechiae Neurologic: normal mental status, non-focal exam, pupils equal and round, motor strength normal and Psychiatric: depressed CBC and BMP: 12/17/16 07:52 12/17/16 07:52 ABG, PT/INR, D-dimer: ABG POC ABG pH 7.456 (7.35-7.45) H 12/15/16 16:50 POC ABG pCO2 41.3 (35-45) 12/15/16 16:50 POC ABG pO2 61 (80-105) L 12/15/16 16:50 POC ABG HCO3 29.0 12/15/16 16:50 POC ABG Total CO2 30 12/15/16 16:50 POC ABG O2 Sat 92 12/15/16 16:50 PT/INR, D-dimer PT 14.5 Sec. (12.2-14.9) 11/22/16 07:20 INR 1.14 (0.87-1.13) H 11/22/16 07:20 Abnormal lab findings: Abnormal Labs 11/22/16 11/22/16 11/22/16 07:20 07:20 07:20 WBC RBC 3.52 L Hgb Hct Plt Count Lymph % (Auto) [place] % (Auto) 11.5 H Eos % (Auto) Lymph # Seg Neutrophils % Seg Neuts % (Manual) Lymphocytes % (Manual) Monocytes % (Manual) Lymphocytes # (Manual) INR 1.14 H APTT Activated Clotting Time POC ABG pH POC ABG pO2 Sodium Potassium Chloride 108.0 H Carbon Dioxide BUN 25 H Creatinine 1.4 H Glucose POC Glucose Uric Acid Calcium AST ALT Total Creatine Kinase Albumin Urine WBC (Auto) Urine Creatinine Urine Chloride Crossmatch 11/22/16 11/22/16 11/22/16 07:37 10:46 13:13 WBC RBC Hgb Hct Plt Count Lymph % (Auto) [place] % (Auto) Eos % (Auto) Lymph # Seg Neutrophils % Seg Neuts % (Manual) Lymphocytes % (Manual) Monocytes % (Manual) Lymphocytes # (Manual) INR APTT 37.7 H Activated Clotting Time 327 H 202 H POC ABG pH POC ABG pO2 Sodium Potassium Chloride Carbon Dioxide BUN Creatinine Glucose POC Glucose Uric Acid Calcium AST ALT Total Creatine Kinase Albumin Urine WBC (Auto) Urine Creatinine Urine Chloride Crossmatch 11/22/16 11/23/16 11/23/16 14:25 06:49 06:49 WBC 4.1 L RBC 2.74 L Hgb 7.7 L Hct 23.8 L D Plt Count 135 L Lymph % (Auto) [place] % (Auto) 13.8 H Eos % (Auto) Lymph # Seg Neutrophils % Seg Neuts % (Manual) Lymphocytes % (Manual) Monocytes % (Manual) Lymphocytes # (Manual) INR APTT Activated Clotting Time 175 H POC ABG pH POC ABG pO2 Sodium Potassium Chloride Carbon Dioxide BUN 27 H Creatinine 1.8 H Glucose 137 H POC Glucose Uric Acid Calcium 8.0 L AST ALT Total Creatine Kinase 183 H Albumin Urine WBC (Auto) Urine Creatinine Urine Chloride Crossmatch 11/23/16 11/23/16 11/23/16 11:07 12:45 17:32 WBC RBC 2.98 L Hgb 8.5 L Hct 26.3 L Plt Count Lymph % (Auto) [place] % (Auto) 13.2 H Eos % (Auto) Lymph # Seg Neutrophils % Seg Neuts % (Manual) Lymphocytes % (Manual) Monocytes % (Manual) Lymphocytes # (Manual) INR APTT Activated Clotting Time POC ABG pH POC ABG pO2 Sodium Potassium Chloride Carbon Dioxide BUN Creatinine Glucose POC Glucose 134 H 171 H Uric Acid Calcium AST ALT Total Creatine Kinase Albumin Urine WBC (Auto) Urine Creatinine Urine Chloride Crossmatch 11/23/16 11/24/16 11/24/16 21:24 05:28 05:28 WBC RBC Hgb 8.6 L Hct 26.8 L Plt Count Lymph % (Auto) [place] % (Auto) Eos % (Auto) Lymph # Seg Neutrophils % Seg Neuts % (Manual) Lymphocytes % (Manual) Monocytes % (Manual) Lymphocytes # (Manual) INR APTT Activated Clotting Time POC ABG pH POC ABG pO2 Sodium Potassium 5.9 H D Chloride Carbon Dioxide 19 L BUN 33 H Creatinine 2.7 H Glucose 162 H POC Glucose 174 H Uric Acid Calcium AST ALT Total Creatine Kinase Albumin Urine WBC (Auto) Urine Creatinine Urine Chloride Crossmatch 11/24/16 11/24/16 11/24/16 06:23 07:05 07:09 WBC RBC Hgb Hct Plt Count Lymph % (Auto) [place] % (Auto) Eos % (Auto) Lymph # Seg Neutrophils % Seg Neuts % (Manual) Lymphocytes % (Manual) Monocytes % (Manual) Lymphocytes # (Manual) INR APTT Activated Clotting Time POC ABG pH 7.264 L POC ABG pO2 33 L Sodium Potassium 5.8 H Chloride Carbon Dioxide 20 L BUN 33 H Creatinine 2.8 H Glucose 158 H POC Glucose 209 H Uric Acid Calcium AST 100 H ALT 118 H Total Creatine Kinase Albumin 3.5 L Urine WBC (Auto) Urine Creatinine Urine Chloride Crossmatch 11/24/16 11/24/16 11/24/16 07:19 08:50 11:45 WBC RBC Hgb Hct Plt Count Lymph % (Auto) [place] % (Auto) Eos % (Auto) Lymph # Seg Neutrophils % Seg Neuts % (Manual) Lymphocytes % (Manual) Monocytes % (Manual) Lymphocytes # (Manual) INR APTT Activated Clotting Time POC ABG pH 7.285 L POC ABG pO2 64 L Sodium Potassium Chloride Carbon Dioxide BUN Creatinine Glucose POC Glucose 193 H 169 H Uric Acid Calcium AST ALT Total Creatine Kinase Albumin Urine WBC (Auto) Urine Creatinine Urine Chloride Crossmatch 11/24/16 11/24/16 11/24/16 15:24 15:32 17:14 WBC RBC Hgb Hct Plt Count Lymph % (Auto) [place] % (Auto) Eos % (Auto) Lymph # Seg Neutrophils % Seg Neuts % (Manual) Lymphocytes % (Manual) Monocytes % (Manual) Lymphocytes # (Manual) INR APTT Activated Clotting Time POC ABG pH POC ABG pO2 Sodium Potassium 5.2 H Chloride Carbon Dioxide 20 L BUN 37 H Creatinine 3.0 H Glucose 144 H POC Glucose 195 H Uric Acid Calcium AST ALT Total Creatine Kinase Albumin Urine WBC (Auto) Urine Creatinine Urine Chloride Crossmatch See Detail 11/24/16 11/24/16 11/25/16 21:57 23:39 05:30 WBC RBC Hgb Hct Plt Count Lymph % (Auto) [place] % (Auto) Eos % (Auto) Lymph # Seg Neutrophils % Seg Neuts % (Manual) Lymphocytes % (Manual) Monocytes % (Manual) Lymphocytes # (Manual) INR APTT Activated Clotting Time POC ABG pH POC ABG pO2 Sodium Potassium Chloride Carbon Dioxide BUN Creatinine Glucose POC Glucose 112 H 129 H Uric Acid Calcium AST ALT Total Creatine Kinase Albumin Urine WBC (Auto) Urine Creatinine 295.3 H Urine Chloride 31.3 L Crossmatch 11/25/16 11/25/16 11/25/16 07:00 07:00 08:40 WBC RBC 3.30 L Hgb 9.5 L Hct 29.0 L Plt Count 119 L Lymph % (Auto) [place] % (Auto) 9.5 H Eos % (Auto) Lymph # Seg Neutrophils % 72.7 H Seg Neuts % (Manual) Lymphocytes % (Manual) Monocytes % (Manual) Lymphocytes # (Manual) INR APTT Activated Clotting Time POC ABG pH POC ABG pO2 Sodium Potassium Chloride 110.1 H Carbon Dioxide 18 L BUN 38 H Creatinine 2.6 H Glucose 123 H POC Glucose 129 H Uric Acid Calcium 8.2 L AST ALT Total Creatine Kinase Albumin Urine WBC (Auto) Urine Creatinine Urine Chloride Crossmatch 11/25/16 11/25/16 11/25/16 11:24 12:17 16:16 WBC RBC Hgb Hct Plt Count Lymph % (Auto) [place] % (Auto) Eos % (Auto) Lymph # Seg Neutrophils % Seg Neuts % (Manual) Lymphocytes % (Manual) Monocytes % (Manual) Lymphocytes # (Manual) INR APTT Activated Clotting Time POC ABG pH 7.327 L POC ABG pO2 Sodium Potassium Chloride Carbon Dioxide BUN Creatinine Glucose POC Glucose 142 H 151 H Uric Acid Calcium AST ALT Total Creatine Kinase Albumin Urine WBC (Auto) Urine Creatinine Urine Chloride Crossmatch 11/25/16 11/25/16 11/26/16 21:48 22:20 00:58 WBC RBC 3.23 L Hgb 9.2 L Hct 27.9 L Plt Count 119 L Lymph % (Auto) 10.2 L [place] % (Auto) 7.6 H Eos % (Auto) Lymph # 0.8 L Seg Neutrophils % 79.9 H Seg Neuts % (Manual) Lymphocytes % (Manual) Monocytes % (Manual) Lymphocytes # (Manual) INR APTT Activated Clotting Time POC ABG pH POC ABG pO2 67 L Sodium Potassium Chloride Carbon Dioxide BUN Creatinine Glucose POC Glucose 149 H Uric Acid Calcium AST ALT Total Creatine Kinase Albumin Urine WBC (Auto) Urine Creatinine Urine Chloride Crossmatch 11/26/16 11/26/16 11/26/16 06:11 07:40 11:28 WBC RBC Hgb Hct Plt Count Lymph % (Auto) [place] % (Auto) Eos % (Auto) Lymph # Seg Neutrophils % Seg Neuts % (Manual) Lymphocytes % (Manual) Monocytes % (Manual) Lymphocytes # (Manual) INR APTT Activated Clotting Time POC ABG pH POC ABG pO2 Sodium Potassium Chloride Carbon Dioxide 21 L BUN 41 H Creatinine 2.5 H Glucose 151 H POC Glucose 144 H 168 H Uric Acid Calcium 8.1 L AST ALT Total Creatine Kinase Albumin Urine WBC (Auto) Urine Creatinine Urine Chloride Crossmatch 11/26/16 11/27/16 11/27/16 15:50 00:03 03:45 WBC RBC Hgb Hct Plt Count Lymph % (Auto) [place] % (Auto) Eos % (Auto) Lymph # Seg Neutrophils % Seg Neuts % (Manual) Lymphocytes % (Manual) Monocytes % (Manual) Lymphocytes # (Manual) INR APTT Activated Clotting Time POC ABG pH POC ABG pO2 Sodium Potassium Chloride Carbon Dioxide BUN 46 H Creatinine 2.8 H Glucose 147 H POC Glucose 153 H 183 H Uric Acid Calcium 8.1 L AST ALT Total Creatine Kinase Albumin Urine WBC (Auto) Urine Creatinine Urine Chloride Crossmatch 11/27/16 11/27/16 11/27/16 06:26 07:32 11:53 WBC RBC Hgb Hct Plt Count Lymph % (Auto) [place] % (Auto) Eos % (Auto) Lymph # Seg Neutrophils % Seg Neuts % (Manual) Lymphocytes % (Manual) Monocytes % (Manual) Lymphocytes # (Manual) INR APTT Activated Clotting Time POC ABG pH POC ABG pO2 Sodium Potassium Chloride Carbon Dioxide BUN Creatinine Glucose POC Glucose 208 H 193 H 180 H Uric Acid Calcium AST ALT Total Creatine Kinase Albumin Urine WBC (Auto) Urine Creatinine Urine Chloride Crossmatch 11/27/16 11/27/16 11/28/16 16:42 21:51 08:13 WBC RBC Hgb Hct Plt Count Lymph % (Auto) [place] % (Auto) Eos % (Auto) Lymph # Seg Neutrophils % Seg Neuts % (Manual) Lymphocytes % (Manual) Monocytes % (Manual) Lymphocytes # (Manual) INR APTT Activated Clotting Time POC ABG pH POC ABG pO2 Sodium Potassium Chloride Carbon Dioxide BUN Creatinine Glucose POC Glucose 161 H 167 H 151 H Uric Acid Calcium AST ALT Total Creatine Kinase Albumin Urine WBC (Auto) Urine Creatinine Urine Chloride Crossmatch 11/28/16 11/28/16 11/28/16 10:01 10:01 12:30 WBC RBC Hgb 8.5 L Hct 25.3 L Plt Count Lymph % (Auto) [place] % (Auto) Eos % (Auto) Lymph # Seg Neutrophils % Seg Neuts % (Manual) Lymphocytes % (Manual) Monocytes % (Manual) Lymphocytes # (Manual) INR APTT Activated Clotting Time POC ABG pH POC ABG pO2 Sodium 136 L Potassium Chloride Carbon Dioxide BUN 50 H Creatinine 2.8 H Glucose 143 H POC Glucose 154 H Uric Acid Calcium 8.1 L AST ALT Total Creatine Kinase Albumin Urine WBC (Auto) Urine Creatinine Urine Chloride Crossmatch 11/28/16 11/28/16 11/28/16 15:22 16:55 20:40 WBC RBC Hgb Hct Plt Count Lymph % (Auto) [place] % (Auto) Eos % (Auto) Lymph # Seg Neutrophils % Seg Neuts % (Manual) Lymphocytes % (Manual) Monocytes % (Manual) Lymphocytes # (Manual) INR APTT Activated Clotting Time POC ABG pH POC ABG pO2 Sodium Potassium Chloride Carbon Dioxide BUN Creatinine Glucose POC Glucose 191 H 177 H Uric Acid Calcium AST ALT Total Creatine Kinase Albumin Urine WBC (Auto) Urine Creatinine Urine Chloride Crossmatch See Detail 11/29/16 11/29/16 11/29/16 07:18 07:18 07:31 WBC RBC Hgb 9.5 L Hct 28.2 L Plt Count Lymph % (Auto) [place] % (Auto) Eos % (Auto) Lymph # Seg Neutrophils % Seg Neuts % (Manual) Lymphocytes % (Manual) Monocytes % (Manual) Lymphocytes # (Manual) INR APTT Activated Clotting Time POC ABG pH POC ABG pO2 Sodium 136 L Potassium Chloride Carbon Dioxide BUN 51 H Creatinine 2.7 H Glucose 120 H POC Glucose 127 H Uric Acid Calcium 8.1 L AST ALT Total Creatine Kinase Albumin Urine WBC (Auto) Urine Creatinine Urine Chloride Crossmatch 11/29/16 11/29/16 11/29/16 12:49 17:35 20:31 WBC RBC Hgb Hct Plt Count Lymph % (Auto) [place] % (Auto) Eos % (Auto) Lymph # Seg Neutrophils % Seg Neuts % (Manual) Lymphocytes % (Manual) Monocytes % (Manual) Lymphocytes # (Manual) INR APTT Activated Clotting Time POC ABG pH POC ABG pO2 Sodium Potassium Chloride Carbon Dioxide BUN Creatinine Glucose POC Glucose 213 H 179 H 154 H Uric Acid Calcium AST ALT Total Creatine Kinase Albumin Urine WBC (Auto) Urine Creatinine Urine Chloride Crossmatch 11/30/16 11/30/16 11/30/16 08:25 09:52 16:07 WBC RBC Hgb Hct Plt Count Lymph % (Auto) [place] % (Auto) Eos % (Auto) Lymph # Seg Neutrophils % Seg Neuts % (Manual) Lymphocytes % (Manual) Monocytes % (Manual) Lymphocytes # (Manual) INR APTT Activated Clotting Time POC ABG pH POC ABG pO2 Sodium Potassium Chloride Carbon Dioxide BUN 52 H Creatinine 3.0 H Glucose 156 H POC Glucose 127 H 216 H Uric Acid Calcium AST ALT Total Creatine Kinase Albumin Urine WBC (Auto) Urine Creatinine Urine Chloride Crossmatch 11/30/16 12/01/16 12/01/16 20:45 08:34 08:48 WBC RBC Hgb Hct Plt Count Lymph % (Auto) [place] % (Auto) Eos % (Auto) Lymph # Seg Neutrophils % Seg Neuts % (Manual) Lymphocytes % (Manual) Monocytes % (Manual) Lymphocytes # (Manual) INR APTT Activated Clotting Time POC ABG pH POC ABG pO2 Sodium 136 L Potassium Chloride Carbon Dioxide BUN 50 H Creatinine 3.0 H Glucose 124 H POC Glucose 197 H 136 H Uric Acid Calcium AST ALT Total Creatine Kinase Albumin Urine WBC (Auto) Urine Creatinine Urine Chloride Crossmatch 06/12/01/16 12/01/16 11:35 16:56 22:08 WBC RBC Hgb Hct Plt Count Lymph % (Auto) [place] % (Auto) Eos % (Auto) Lymph # Seg Neutrophils % Seg Neuts % (Manual) Lymphocytes % (Manual) Monocytes % (Manual) Lymphocytes # (Manual) INR APTT Activated Clotting Time POC ABG pH POC ABG pO2 Sodium Potassium Chloride Carbon Dioxide BUN Creatinine Glucose POC Glucose 205 H 210 H 157 H Uric Acid Calcium AST ALT Total Creatine Kinase Albumin Urine WBC (Auto) Urine Creatinine Urine Chloride Crossmatch 12/02/16 12/02/16 12/02/16 05:52 08:47 15:16 WBC RBC Hgb Hct Plt Count Lymph % (Auto) [place] % (Auto) Eos % (Auto) Lymph # Seg Neutrophils % Seg Neuts % (Manual) Lymphocytes % (Manual) Monocytes % (Manual) Lymphocytes # (Manual) INR APTT Activated Clotting Time POC ABG pH POC ABG pO2 Sodium Potassium Chloride Carbon Dioxide BUN 48 H Creatinine 2.7 H Glucose 136 H POC Glucose 134 H 226 H Uric Acid Calcium AST ALT Total Creatine Kinase Albumin Urine WBC (Auto) Urine Creatinine Urine Chloride Crossmatch 12/02/16 12/03/16 12/03/16 22:53 05:58 05:58 WBC 4.2 L RBC 3.37 L Hgb 9.7 L Hct 29.4 L Plt Count Lymph % (Auto) [place] % (Auto) Eos % (Auto) Lymph # Seg Neutrophils % Seg Neuts % (Manual) Lymphocytes % (Manual) Monocytes % (Manual) Lymphocytes # (Manual) INR APTT Activated Clotting Time POC ABG pH POC ABG pO2 Sodium Potassium Chloride Carbon Dioxide BUN 47 H Creatinine 2.7 H Glucose 142 H POC Glucose 235 H Uric Acid Calcium AST ALT Total Creatine Kinase Albumin Urine WBC (Auto) Urine Creatinine Urine Chloride Crossmatch 12/03/16 12/03/16 12/03/16 13:04 16:47 21:50 WBC RBC Hgb Hct Plt Count Lymph % (Auto) [place] % (Auto) Eos % (Auto) Lymph # Seg Neutrophils % Seg Neuts % (Manual) Lymphocytes % (Manual) Monocytes % (Manual) Lymphocytes # (Manual) INR APTT Activated Clotting Time POC ABG pH POC ABG pO2 Sodium Potassium Chloride Carbon Dioxide BUN Creatinine Glucose POC Glucose 135 H 140 H 170 H Uric Acid Calcium AST ALT Total Creatine Kinase Albumin Urine WBC (Auto) Urine Creatinine Urine Chloride Crossmatch 12/04/16 12/04/16 12/04/16 07:26 12:21 16:43 WBC RBC Hgb Hct Plt Count Lymph % (Auto) [place] % (Auto) Eos % (Auto) Lymph # Seg Neutrophils % Seg Neuts % (Manual) Lymphocytes % (Manual) Monocytes % (Manual) Lymphocytes # (Manual) INR APTT Activated Clotting Time POC ABG pH POC ABG pO2 Sodium Potassium Chloride Carbon Dioxide BUN Creatinine Glucose POC Glucose 145 H 203 H 210 H Uric Acid Calcium AST ALT Total Creatine Kinase Albumin Urine WBC (Auto) Urine Creatinine Urine Chloride Crossmatch 12/04/16 12/05/16 12/05/16 21:41 07:54 07:54 WBC RBC 3.10 L Hgb 9.0 L Hct 26.9 L Plt Count Lymph % (Auto) [place]att % (Auto) 13.8 H Eos % (Auto) 5.3 H Lymph # 1.1 L Seg Neutrophils % Seg Neuts % (Manual) Lymphocytes % (Manual) Monocytes % (Manual) Lymphocytes # (Manual) INR APTT Activated Clotting Time POC ABG pH POC ABG pO2 Sodium Potassium Chloride Carbon Dioxide BUN 51 H Creatinine 3.7 H Glucose 132 H POC Glucose 211 H Uric Acid Calcium AST ALT Total Creatine Kinase Albumin Urine WBC (Auto) Urine Creatinine Urine Chloride Crossmatch 12/05/16 12/05/16 12/05/16 08:30 11:46 22:02 WBC RBC Hgb Hct Plt Count Lymph % (Auto) [place] % (Auto) Eos % (Auto) Lymph # Seg Neutrophils % Seg Neuts % (Manual) Lymphocytes % (Manual) Monocytes % (Manual) Lymphocytes # (Manual) INR APTT Activated Clotting Time POC ABG pH POC ABG pO2 Sodium Potassium Chloride Carbon Dioxide BUN Creatinine Glucose POC Glucose 140 H 225 H 165 H Uric Acid Calcium AST ALT Total Creatine Kinase Albumin Urine WBC (Auto) Urine Creatinine Urine Chloride Crossmatch 12/06/16 12/06/16 12/06/16 08:17 09:10 09:10 WBC RBC Hgb Hct Plt Count Lymph % (Auto) [place] % (Auto) Eos % (Auto) Lymph # Seg Neutrophils % Seg Neuts % (Manual) Lymphocytes % (Manual) Monocytes % (Manual) Lymphocytes # (Manual) INR APTT Activated Clotting Time POC ABG pH POC ABG pO2 Sodium Potassium Chloride 97.6 L Carbon Dioxide BUN 50 H Creatinine 3.8 H Glucose 126 H POC Glucose 166 H Uric Acid 10.0 H Calcium AST ALT Total Creatine Kinase Albumin Urine WBC (Auto) Urine Creatinine Urine Chloride Crossmatch 12/06/16 12/06/16 12/06/16 12:18 17:39 22:31 WBC RBC Hgb Hct Plt Count Lymph % (Auto) [place] % (Auto) Eos % (Auto) Lymph # Seg Neutrophils % Seg Neuts % (Manual) Lymphocytes % (Manual) Monocytes % (Manual) Lymphocytes # (Manual) INR APTT Activated Clotting Time POC ABG pH POC ABG pO2 Sodium Potassium Chloride Carbon Dioxide BUN Creatinine Glucose POC Glucose 188 H 176 H 157 H Uric Acid Calcium AST ALT Total Creatine Kinase Albumin Urine WBC (Auto) Urine Creatinine Urine Chloride Crossmatch 12/07/16 12/07/16 12/07/16 08:48 08:49 09:01 WBC RBC Hgb Hct Plt Count Lymph % (Auto) [place]att % (Auto) Eos % (Auto) Lymph # Seg Neutrophils % Seg Neuts % (Manual) Lymphocytes % (Manual) Monocytes % (Manual) Lymphocytes # (Manual) INR APTT Activated Clotting Time POC ABG pH POC ABG pO2 Sodium Potassium Chloride 97.9 L Carbon Dioxide BUN 52 H Creatinine 4.2 H Glucose 105 H POC Glucose 107 H Uric Acid 10.3 H Calcium AST ALT Total Creatine Kinase 188 H Albumin Urine WBC (Auto) Urine Creatinine Urine Chloride Crossmatch 12/07/16 12/07/16 12/07/16 12:27 16:59 17:25 WBC RBC Hgb Hct Plt Count Lymph % (Auto) [place]att % (Auto) Eos % (Auto) Lymph # Seg Neutrophils % Seg Neuts % (Manual) Lymphocytes % (Manual) Monocytes % (Manual) Lymphocytes # (Manual) INR APTT Activated Clotting Time POC ABG pH POC ABG pO2 Sodium Potassium Chloride Carbon Dioxide BUN Creatinine Glucose POC Glucose 163 H 124 H Uric Acid Calcium AST ALT Total Creatine Kinase Albumin Urine WBC (Auto) 9.0 H Urine Creatinine Urine Chloride Crossmatch 12/07/16 12/07/16 12/08/16 17:25 22:04 07:53 WBC RBC Hgb Hct Plt Count Lymph % (Auto) [place]att % (Auto) Eos % (Auto) Lymph # Seg Neutrophils % Seg Neuts % (Manual) Lymphocytes % (Manual) Monocytes % (Manual) Lymphocytes # (Manual) INR APTT Activated Clotting Time POC ABG pH POC ABG pO2 Sodium Potassium Chloride Carbon Dioxide BUN Creatinine Glucose POC Glucose 133 H 168 H Uric Acid Calcium AST ALT Total Creatine Kinase Albumin Urine WBC (Auto) Urine Creatinine 336.8 H Urine Chloride Crossmatch 12/08/16 12/08/16 12/08/16 08:05 12:17 22:09 WBC RBC Hgb Hct Plt Count Lymph % (Auto) [place]att % (Auto) Eos % (Auto) Lymph # Seg Neutrophils % Seg Neuts % (Manual) Lymphocytes % (Manual) Monocytes % (Manual) Lymphocytes # (Manual) INR APTT Activated Clotting Time POC ABG pH POC ABG pO2 Sodium Potassium Chloride Carbon Dioxide BUN 55 H Creatinine 5.0 H Glucose 142 H POC Glucose 140 H 154 H Uric Acid Calcium AST ALT Total Creatine Kinase Albumin Urine WBC (Auto) Urine Creatinine Urine Chloride Crossmatch 12/09/16 12/09/16 12/09/16 06:40 07:47 08:41 WBC RBC 3.09 L Hgb 8.8 L Hct 27.0 L Plt Count Lymph % (Auto) Piatt % (Auto) Eos % (Auto) Lymph # Seg Neutrophils % Seg Neuts % (Manual) 75.0 H Lymphocytes % (Manual) 13.0 L Monocytes % (Manual) 8.0 H Lymphocytes # (Manual) 0.7 L INR APTT Activated Clotting Time POC ABG pH POC ABG pO2 Sodium Potassium Chloride Carbon Dioxide BUN 23 H Creatinine 3.1 H Glucose 108 H POC Glucose 115 H Uric Acid Calcium AST ALT Total Creatine Kinase Albumin Urine WBC (Auto) Urine Creatinine Urine Chloride Crossmatch 12/09/16 12/09/16 12/09/16 08:41 12:26 22:19 WBC RBC Hgb Hct Plt Count Lymph % (Auto) [place]att % (Auto) Eos % (Auto) Lymph # Seg Neutrophils % Seg Neuts % (Manual) Lymphocytes % (Manual) Monocytes % (Manual) Lymphocytes # (Manual) INR APTT Activated Clotting Time POC ABG pH POC ABG pO2 Sodium Potassium Chloride Carbon Dioxide BUN 23 H Creatinine 3.0 H Glucose 108 H POC Glucose 140 H 139 H Uric Acid Calcium AST ALT Total Creatine Kinase Albumin Urine WBC (Auto) Urine Creatinine Urine Chloride Crossmatch 12/10/16 12/10/16 12/10/16 06:00 06:00 06:00 WBC RBC 3.47 L Hgb 9.8 L Hct Plt Count Lymph % (Auto) Piatt % (Auto) Eos % (Auto) Lymph # Seg Neutrophils % Seg Neuts % (Manual) Lymphocytes % (Manual) Monocytes % (Manual) Lymphocytes # (Manual) INR APTT Activated Clotting Time POC ABG pH POC ABG pO2 Sodium Potassium Chloride Carbon Dioxide BUN Creatinine 1.9 H 1.9 H Glucose 120 H 120 H POC Glucose Uric Acid Calcium AST ALT Total Creatine Kinase Albumin 5.1 H Urine WBC (Auto) Urine Creatinine Urine Chloride Crossmatch 12/10/16 12/10/16 12/10/16 08:34 16:38 21:00 WBC RBC Hgb Hct Plt Count Lymph % (Auto) [place]att % (Auto) Eos % (Auto) Lymph # Seg Neutrophils % Seg Neuts % (Manual) Lymphocytes % (Manual) Monocytes % (Manual) Lymphocytes # (Manual) INR APTT Activated Clotting Time POC ABG pH POC ABG pO2 Sodium Potassium Chloride Carbon Dioxide BUN Creatinine Glucose POC Glucose 137 H 109 H 155 H Uric Acid Calcium AST ALT Total Creatine Kinase Albumin Urine WBC (Auto) Urine Creatinine Urine Chloride Crossmatch 12/11/16 12/11/16 12/11/16 06:02 12:33 17:36 WBC RBC Hgb Hct Plt Count Lymph % (Auto) Piatt % (Auto) Eos % (Auto) Lymph # Seg Neutrophils % Seg Neuts % (Manual) Lymphocytes % (Manual) Monocytes % (Manual) Lymphocytes # (Manual) INR APTT Activated Clotting Time POC ABG pH POC ABG pO2 Sodium Potassium Chloride 97.0 L Carbon Dioxide 31 H BUN Creatinine 2.3 H Glucose 133 H POC Glucose 131 H 145 H Uric Acid Calcium AST ALT Total Creatine Kinase Albumin Urine WBC (Auto) Urine Creatinine Urine Chloride Crossmatch 12/11/16 12/12/16 12/12/16 21:50 05:58 07:46 WBC RBC Hgb Hct Plt Count Lymph % (Auto) [place] % (Auto) Eos % (Auto) Lymph # Seg Neutrophils % Seg Neuts % (Manual) Lymphocytes % (Manual) Monocytes % (Manual) Lymphocytes # (Manual) INR APTT Activated Clotting Time POC ABG pH POC ABG pO2 Sodium Potassium Chloride Carbon Dioxide BUN Creatinine 3.5 H D Glucose 127 H POC Glucose 158 H 148 H Uric Acid Calcium AST ALT Total Creatine Kinase Albumin Urine WBC (Auto) Urine Creatinine Urine Chloride Crossmatch 12/12/16 12/12/16 12/12/16 11:42 15:55 21:56 WBC RBC Hgb Hct Plt Count Lymph % (Auto) [place] % (Auto) Eos % (Auto) Lymph # Seg Neutrophils % Seg Neuts % (Manual) Lymphocytes % (Manual) Monocytes % (Manual) Lymphocytes # (Manual) INR APTT Activated Clotting Time POC ABG pH POC ABG pO2 Sodium Potassium Chloride Carbon Dioxide BUN Creatinine Glucose POC Glucose 189 H 167 H 160 H Uric Acid Calcium AST ALT Total Creatine Kinase Albumin Urine WBC (Auto) Urine Creatinine Urine Chloride Crossmatch 12/13/16 12/13/16 12/13/16 04:31 04:31 08:03 WBC RBC 3.29 L Hgb 9.4 L Hct 28.9 L Plt Count Lymph % (Auto) [place] % (Auto) 9.2 H Eos % (Auto) Lymph # 1.1 L Seg Neutrophils % Seg Neuts % (Manual) Lymphocytes % (Manual) Monocytes % (Manual) Lymphocytes # (Manual) INR APTT Activated Clotting Time POC ABG pH POC ABG pO2 Sodium Potassium Chloride Carbon Dioxide BUN Creatinine 4.8 H Glucose 119 H POC Glucose 128 H Uric Acid Calcium AST ALT Total Creatine Kinase Albumin Urine WBC (Auto) Urine Creatinine Urine Chloride Crossmatch 12/13/16 12/13/16 12/14/16 17:16 21:37 05:57 WBC RBC 3.40 L Hgb 9.7 L Hct 30.0 L Plt Count Lymph % (Auto) [place] % (Auto) 11.2 H Eos % (Auto) Lymph # Seg Neutrophils % Seg Neuts % (Manual) Lymphocytes % (Manual) Monocytes % (Manual) Lymphocytes # (Manual) INR APTT Activated Clotting Time POC ABG pH POC ABG pO2 Sodium Potassium Chloride Carbon Dioxide BUN Creatinine Glucose POC Glucose 122 H 158 H Uric Acid Calcium AST ALT Total Creatine Kinase Albumin Urine WBC (Auto) Urine Creatinine Urine Chloride Crossmatch 12/14/16 12/14/16 12/14/16 05:57 08:29 12:53 WBC RBC Hgb Hct Plt Count Lymph % (Auto) [place] % (Auto) Eos % (Auto) Lymph # Seg Neutrophils % Seg Neuts % (Manual) Lymphocytes % (Manual) Monocytes % (Manual) Lymphocytes # (Manual) INR APTT Activated Clotting Time POC ABG pH POC ABG pO2 Sodium Potassium Chloride Carbon Dioxide BUN Creatinine 2.8 H Glucose POC Glucose 124 H 181 H Uric Acid Calcium AST ALT Total Creatine Kinase Albumin Urine WBC (Auto) Urine Creatinine Urine Chloride Crossmatch 12/14/16 12/14/16 12/15/16 17:50 22:59 05:30 WBC RBC Hgb Hct Plt Count Lymph % (Auto) [place] % (Auto) Eos % (Auto) Lymph # Seg Neutrophils % Seg Neuts % (Manual) Lymphocytes % (Manual) Monocytes % (Manual) Lymphocytes # (Manual) INR APTT Activated Clotting Time POC ABG pH POC ABG pO2 Sodium Potassium Chloride Carbon Dioxide BUN Creatinine 2.8 H Glucose 105 H POC Glucose 121 H 108 H Uric Acid Calcium AST ALT Total Creatine Kinase Albumin Urine WBC (Auto) Urine Creatinine Urine Chloride Crossmatch 12/15/16 12/15/16 12/15/16 08:06 08:49 16:50 WBC RBC 3.09 L Hgb 8.9 L Hct 27.6 L Plt Count Lymph % (Auto) [place] % (Auto) 12.4 H Eos % (Auto) Lymph # 1.0 L Seg Neutrophils % Seg Neuts % (Manual) Lymphocytes % (Manual) Monocytes % (Manual) Lymphocytes # (Manual) INR APTT Activated Clotting Time POC ABG pH 7.456 H POC ABG pO2 61 L Sodium Potassium Chloride Carbon Dioxide BUN Creatinine Glucose POC Glucose 156 H Uric Acid Calcium AST ALT Total Creatine Kinase Albumin Urine WBC (Auto) Urine Creatinine Urine Chloride Crossmatch 12/15/16 12/15/16 12/16/16 17:36 21:49 06:16 WBC RBC 2.91 L Hgb 8.3 L Hct 25.7 L Plt Count Lymph % (Auto) [place] % (Auto) 15.2 H Eos % (Auto) Lymph # 0.9 L Seg Neutrophils % Seg Neuts % (Manual) Lymphocytes % (Manual) Monocytes % (Manual) Lymphocytes # (Manual) INR APTT Activated Clotting Time POC ABG pH POC ABG pO2 Sodium Potassium Chloride Carbon Dioxide BUN Creatinine Glucose POC Glucose 177 H 203 H Uric Acid Calcium AST ALT Total Creatine Kinase Albumin Urine WBC (Auto) Urine Creatinine Urine Chloride Crossmatch 12/16/16 12/16/16 12/16/16 06:16 12:35 16:34 WBC RBC Hgb Hct Plt Count Lymph % (Auto) [place] % (Auto) Eos % (Auto) Lymph # Seg Neutrophils % Seg Neuts % (Manual) Lymphocytes % (Manual) Monocytes % (Manual) Lymphocytes # (Manual) INR APTT Activated Clotting Time POC ABG pH POC ABG pO2 Sodium Potassium Chloride Carbon Dioxide 31 H BUN Creatinine 2.1 H Glucose 175 H POC Glucose 206 H 187 H Uric Acid Calcium AST ALT Total Creatine Kinase Albumin Urine WBC (Auto) Urine Creatinine Urine Chloride Crossmatch 12/16/16 12/16/16 12/17/16 21:04 21:23 07:52 WBC 4.4 L RBC 3.00 L Hgb 8.7 L Hct 26.6 L Plt Count Lymph % (Auto) [place] % (Auto) 13.5 H Eos % (Auto) Lymph # 1.1 L Seg Neutrophils % Seg Neuts % (Manual) Lymphocytes % (Manual) Monocytes % (Manual) Lymphocytes # (Manual) INR APTT Activated Clotting Time POC ABG pH POC ABG pO2 Sodium Potassium Chloride Carbon Dioxide BUN Creatinine Glucose POC Glucose 171 H 144 H Uric Acid Calcium AST ALT Total Creatine Kinase Albumin Urine WBC (Auto) Urine Creatinine Urine Chloride Crossmatch 12/17/16 07:52 WBC RBC Hgb Hct Plt Count Lymph % (Auto) [place] % (Auto) Eos % (Auto) Lymph # Seg Neutrophils % Seg Neuts % (Manual) Lymphocytes % (Manual) Monocytes % (Manual) Lymphocytes # (Manual) INR APTT Activated Clotting Time POC ABG pH POC ABG pO2 Sodium Potassium Chloride Carbon Dioxide BUN Creatinine 3.1 H Glucose 111 H POC Glucose Uric Acid Calcium AST ALT Total Creatine Kinase Albumin Urine WBC (Auto) Urine Creatinine Urine Chloride Crossmatch
[2016-12-17] MEDS: HEPARIN IV PRN (18:01)
[2016-12-17] MEDS: ZOFRAN IV PRN (23:08)
--- NOTE | 2016-12-17 23:54 | Progress Note ---
Assessment and Plan Volume overload Coronary artery disease with prior CABG Right and LHC findings: moderate to severe elevated left and right heart filling pressures; moderate to severe pulmonary HTN 3 vessel disease ESTRADA to LAD patent SVG x 2 occluded (Diag and OM) subtotal occlusion of proximal segment of SVG to RCA treated with a drug eluting stent EF 40-45% Acute renal failure secondary to contrast nephropathy initiated on dialysis Acute drop in H&H s/p blood transfusion Ischemic Cardiomyopathy Hypertension Deconditioning Continue medical therapy for coronary artery disease, including dual oral antiplatelet therapy for recent coronary stent. Stable from cardiac standpoint for DC Subjective Date of service: 12/18/16 Principal diagnosis: Acute Encephalopathy; PATRIA on Dialysis; CAD s/p PCI and stenting Interval history: No acute events. Resting comfortably. No chest pain or SOB. Objective Vital Signs Temp Pulse Pulse Resp BP BP Pulse Ox 12/17/16 22:59 74 164/71 12/17/16 22:00 100 12/17/16 20:27 97.6 F 78 20 164/71 100 12/17/16 17:52 98.6 F 72 18 178/78 100 12/17/16 15:00 97.8 F 71 20 123/64 12/17/16 14:57 71 129/67 12/17/16 14:45 72 129/66 12/17/16 14:30 71 130/66 12/17/16 14:15 77 130/71 12/17/16 14:00 70 128/66 12/17/16 13:45 71 129/69 12/17/16 13:30 71 127/69 12/17/16 13:15 96 H 128/69 12/17/16 13:00 88 121/69 12/17/16 12:45 91 H 140/75 12/17/16 12:30 90 135/72 12/17/16 12:15 91 H 139/76 12/17/16 12:00 99 H 120/60 12/17/16 11:00 98.6 F 94 H 18 121/66 12/17/16 10:35 98.6 F 74 18 135/63 100 12/17/16 05:39 98.9 F 64 18 133/64 96 12/17/16 00:57 68 12/17/16 00:46 97.6 F 59 L 18 121/67 98 - Physical Examination General: No Apparent Distress HEENT: Positive: PERRL Neck: Positive: trachea midline Neuro: Positive: Grossly Intact, Weakness Abdomen: Positive: Soft, Distended Incision: Cardiac Cath Site Extremities: Present: +1 Edema - Labs and Meds CBC 12/17/16 Range/Units 07:52 WBC 4.4 L (4.5-11.0) K/mm3 RBC 3.00 L (3.65-5.03) M/mm3 Hgb 8.7 L (10.1-14.3) gm/dl Hct 26.6 L (30.3-42.9) % Plt Count 154 (140-440) K/mm3 Lymph # 1.1 L (1.2-5.4) K/mm3 [place] # 0.6 (0.0-0.8) K/mm3 Eos # 0.1 (0.0-0.4) K/mm3 Baso # 0.0 (0.0-0.1) K/mm3 Comprehensive Metabolic Panel 12/17/16 Range/Units 07:52 Sodium 138 (137-145) mmol/L Potassium 3.7 (3.6-5.0) mmol/L Chloride 98.1 (98-107) mmol/L Carbon Dioxide 26 (22-30) mmol/L BUN 13 (7-17) mg/dL Creatinine 3.1 H (0.7-1.2) mg/dL Glucose 111 H (65-100) mg/dL Calcium 9.0 (8.4-10.2) mg/dL
[2016-12-18 08:32] LABS: Basophils % (Auto) 0.7 % (0.0-1.8); Eosinophils % (Auto) 2.9 % (0.0-4.3); Hematocrit 29.3 % (30.3-42.9); Hemoglobin 9.7 gm/dl (10.1-14.3); Mean Corpuscular HGB Conc 33 % (30-34); Mean Corpuscular Hemoglobin 29 pg (28-32); Mean Corpuscular Volume 87 fl (79-97); Platelet Count 170 K/mm3 (140-440); Red Blood Count 3.36 M/mm3 (3.65-5.03); Red Cell Distribution Width 14.1 % (13.2-15.2); White Blood Count 4.8 K/mm3 (4.5-11.0)
[2016-12-18 08:40] LABS: BUN/Creatinine Ratio 4.7; Calcium 9.2 mg/dL (8.4-10.2); Chloride 99.3 mmol/L (98-107); Potassium 3.7 mmol/L (3.6-5.0)
[2016-12-18] MEDS: COREG PO SCH ×2 (09:41→22:50)
[2016-12-18] MEDS: ECOTRIN PO SCH (09:41)
[2016-12-18] MEDS: IMDUR PO SCH (09:42)
[2016-12-18] MEDS: EFFEXOR XR PO SCH (09:42)
[2016-12-18] MEDS: PROTONIX PO SCH (09:42)
[2016-12-18] MEDS: PLAVIX PO SCH (09:42)
[2016-12-18] MEDS: HEPARIN SUB-Q SCH ×2 (09:45→22:50)
[2016-12-18] MEDS: PROCARDIA XL PO SCH (09:45)
--- NOTE | 2016-12-18 10:33 | Progress Note ---
Subjective Principal diagnosis: Acute Encephalopathy; PATRIA on Dialysis; CAD s/p PCI and stenting Interval history: Patient was seen today for follow-up on multiple renal related issues she will also do dialysis in the outpatient setting I have already discussed with [facility] pending acceptance for acute kidney injury Patient's baseline creatinine is around 1.5 Vitals labs intake output medications reviewed Social history: Reviewed Family history: Reviewed Physical examination Vitals: Reviewed HEENT: Oral mucosa moist Neck: Supple no JVD Chest: Clear to auscultation no crackles Heart: Regular rate and rhythm S1 and S2 heard Abdomen: Soft nontender bowel sounds present Extremity: Mild edema dry skin Dermatology; dry skin Psychiatry: No evidence of agitation or aggression Assessment and plan; Acute kidney injury in a patient who is currently dialysis dependent without any significant improvement of renal function patient has very poor understanding of her renal failure despite several attempts taken to educate which is unfortunate For now she will continue with dialysis on Monday Mostly her renal failure appears to be resulting from contrast nephropathy/as well as diuretics Patient has been advised to monitor her urine output closely and keep the nurse informed which she does not do properly almost has had anasarca-like picture which has markedly improved Anemia and chronic kidney disease erythropoietin with dialysis check with [facility] about acceptance for acute kidney injury and need for dialysis We'll continue to follow and make recommendation from renal standpoin Objective - Vital Signs Vital signs: Vital Signs - 12hr 12/17/16 12/18/16 12/18/16 22:59 00:37 02:00 Temperature 98.2 F Pulse Rate 74 70 Pulse Rate [ 74 Left Radial] Respiratory 18 Rate Blood Pressure 164/71 Blood Pressure 146/78 [Left Radial Artery] O2 Sat by Pulse 98 Oximetry 12/18/16 12/18/16 12/18/16 05:10 08:00 09:41 Temperature 97.6 F 97.6 F Pulse Rate 74 Pulse Rate [ 64 74 Left Radial] Respiratory 18 20 Rate Blood Pressure 176/80 Blood Pressure 138/68 176/80 [Left Radial Artery] O2 Sat by Pulse 98 96 Oximetry - Lab 12/18/16 07:30 12/18/16 07:30 Most recent lab results Calcium 9.2 mg/dL (8.4-10.2) 12/18/16 07:30 Urine Creatinine 336.8 mg/dL (0.1-20.0) H 12/07/16 17:25 Urine Sodium 13 mEq/L 12/07/16 17:25
[2016-12-18] MEDS ORDERED: DULCOLAX PR PRN (12:31)
--- NOTE | 2016-12-18 12:31 | Progress Note ---
Assessment and Plan Assessment and plan: Patient is a 56-year-old woman with a history of CKD 3 with baseline cr of 1.8, hyperlipidemia, hypertension, CAD, CHF with ejection fraction of 40-50% in 2013 and ischemic cardiomyopathy who presented for an outpatient cardiac catheterization 11/22/16 and had PCI of SVG to RCA with 99% to 0% with 3.0 mm DE stent. Patient was admitted by Cardiology in the hospital to monitor creatinine before discharge. Repeat labs in the morning did reveal an increase in creatinine around 2.7. Patient was also lethargic with altered sensorium and was placed in the ICU for close observation. Hospitalist consulted and . She was also on nitro drip but with no fever blood pressure was adequately controlled. Subsequently the Lasix was discontinued and HERO inhibitor discontinue due to the rise in creatinine. Nephrology and pulmonology/ ccm were consulted. It was determined that the patient will benefit from dialysis. Patient was subsequent transferred out of the ICU to the floor as she remained stable. D/w Dr. Arrieta who was seeing her until 12/13/16, sometime between 12/08/16 and 12/12/16, we became primary attending. I really don't know details. -Ischemic cardiomyopathy status post PCI of SVG TO RCA: Cardiology following. Continue dual antiplatelet therapy -Abdominal pain: Resolved. Likely constipation, lactulose prn and also fleet enema. no ascities noted as previously suspected, GI Consulted -Acute kidney injury on chronic kidney disease stage III likely contrast nephropathy.-Creatinine 1 back up to 3 with no clear evidence of renal recovery. Still a little uric, Nephrology following. PER Nephrology no ACEI OR ARBS on DISCHARGE. -Acute toxic Metabolic encephalopathy- Resolved CT of the brain negative. -Acute blood loss anemia- S/P 2 units packed red blood cell transfusion. Hemoglobin is stable. We'll check intermittent. No GI bleed noted. -Hypertension- Stable -Anasarca-improved. Patient was initially treated with IV Lasix and albumin this has been since discontinued. Expect improvement with dialysis. -Moderate to severe pulmonary hypertension- cardiology following. -DVT and GI prophylaxis -Plan of care discussed in detail with the patient and (over the phone per wishes). Awaiting to see if she has progressed to ESRD to setup outpt Hemodialysis D/W Case management and pulmonology: send Hepatitis panel for Hemodialysis setup ; Awaiting HD chair 12/17/16: CR went back up, most likely will be HD dependant, HD setup pending 12/18/16: cr back down, continue to monitor History Interval history: Patient seen and examined. Follow up on acute renal failure. Overnight uneventful. No cp, sob, n/v or severe headaches. Imaging, old records, testing, labs, nursing notes reviewed. Hospitalist Physical - Physical exam Narrative exam: GEN: WDWN, NAD, AWAKE, ALERT, ORIENTATED x 3 CVS: RRR, NORMAL S1S2 LUNGS/CHEST: NORMAL CHEST EXPANSION B, GOOD AIR ENTRY B ABD: SOFT, NTND, GBS, NO REBOUND OR GUARDING MSK: FROM X 4 EXTREMITIES NEURO: CN 2-12 GROSSLY INTACT except left eye blindness, NO new FOCAL DEFICITS PSY: CALM - Constitutional Vitals: Temp Pulse Resp BP Pulse Ox 97.6 F 74 20 176/80 98 12/18/16 08:00 12/18/16 09:41 12/18/16 08:00 12/18/16 09:41 12/18/16 11:08 General appearance: Present: no acute distress Results - Labs CBC & Chem 7: 12/18/16 07:30 12/18/16 07:30 Labs: Laboratory Last Values WBC 4.8 K/mm3 (4.5-11.0) 12/18/16 07:30 RBC 3.36 M/mm3 (3.65-5.03) L 12/18/16 07:30 Hgb 9.7 gm/dl (10.1-14.3) L 12/18/16 07:30 Hct 29.3 % (30.3-42.9) L 12/18/16 07:30 MCV 87 fl (79-97) 12/18/16 07:30 MCH 29 pg (28-32) 12/18/16 07:30 MCHC 33 % (30-34) 12/18/16 07:30 RDW 14.1 % (13.2-15.2) 12/18/16 07:30 Plt Count 170 K/mm3 (140-440) 12/18/16 07:30 Lymph % (Auto) 23.9 % (13.4-35.0) 12/18/16 07:30 [place] % (Auto) 14.6 % (0.0-7.3) H 12/18/16 07:30 Eos % (Auto) 2.9 % (0.0-4.3) 12/18/16 07:30 Baso % (Auto) 0.7 % (0.0-1.8) 12/18/16 07:30 Lymph # 1.2 K/mm3 (1.2-5.4) 12/18/16 07:30 [place] # 0.7 K/mm3 (0.0-0.8) 12/18/16 07:30 Eos # 0.1 K/mm3 (0.0-0.4) 12/18/16 07:30 Baso # 0.0 K/mm3 (0.0-0.1) 12/18/16 07:30 Add Manual Diff Complete 12/09/16 08:41 Total Counted 100 12/09/16 08:41 Seg Neutrophils % 57.9 % (40.0-70.0) 12/18/16 07:30 Seg Neuts % (Manual) 75.0 % (40.0-70.0) H 12/09/16 08:41 Band Neutrophils % 0 % 12/09/16 08:41 Lymphocytes % (Manual) 13.0 % (13.4-35.0) L 12/09/16 08:41 Reactive Lymphs % (Man) 0 % 12/09/16 08:41 Monocytes % (Manual) 8.0 % (0.0-7.3) H 12/09/16 08:41 Eosinophils % (Manual) 3.0 % (0.0-4.3) 12/09/16 08:41 Basophils % (Manual) 1.0 % (0.0-1.8) 12/09/16 08:41 Metamyelocytes % 0 % 12/09/16 08:41 Myelocytes % 0 % 12/09/16 08:41 Promyelocytes % 0 % 12/09/16 08:41 Blast Cells % 0 % 12/09/16 08:41 Nucleated RBC % Not Reportable 12/09/16 08:41 Seg Neutrophils # 2.8 K/mm3 (1.8-7.7) 12/18/16 07:30 Seg Neutrophils # Man 3.8 K/mm3 (1.8-7.7) 12/09/16 08:41 Band Neutrophils # 0.0 K/mm3 12/09/16 08:41 Lymphocytes # (Manual) 0.7 K/mm3 (1.2-5.4) L 12/09/16 08:41 Abs React Lymphs (Man) 0.0 K/mm3 12/09/16 08:41 Monocytes # (Manual) 0.4 K/mm3 (0.0-0.8) 12/09/16 08:41 Eosinophils # (Manual) 0.2 K/mm3 (0.0-0.4) 12/09/16 08:41 Basophils # (Manual) 0.1 K/mm3 (0.0-0.1) 12/09/16 08:41 Metamyelocytes # 0.0 K/mm3 12/09/16 08:41 Myelocytes # 0.0 K/mm3 12/09/16 08:41 Promyelocytes # 0.0 K/mm3 12/09/16 08:41 Blast Cells # 0.0 K/mm3 12/09/16 08:41 WBC Morphology Not Reportable 12/09/16 08:41 Hypersegmented Neuts Not Reportable 12/09/16 08:41 Hyposegmented Neuts Not Reportable 12/09/16 08:41 Hypogranular Neuts Not Reportable 12/09/16 08:41 Smudge Cells Not Reportable 12/09/16 08:41 Toxic Granulation Not Reportable 12/09/16 08:41 Toxic Vacuolation Not Reportable 12/09/16 08:41 Dohle Bodies Not Reportable 12/09/16 08:41 Pelger-Huet Anomaly Not Reportable 12/09/16 08:41 Rich Rods Not Reportable 12/09/16 08:41 Platelet Estimate Appears normal 12/09/16 08:41 Clumped Platelets Not Reportable 12/09/16 08:41 Plt Clumps, EDTA Not Reportable 12/09/16 08:41 Large Platelets Not Reportable 12/09/16 08:41 Giant Platelets Not Reportable 12/09/16 08:41 Platelet Satelliting Not Reportable 12/09/16 08:41 Plt Morphology Comment Not Reportable 12/09/16 08:41 RBC Morphology Not Reportable 12/09/16 08:41 Dimorphic RBCs Not Reportable 12/09/16 08:41 Polychromasia Not Reportable 12/09/16 08:41 Hypochromasia Not Reportable 12/09/16 08:41 Poikilocytosis Not Reportable 12/09/16 08:41 Anisocytosis 1+ 12/09/16 08:41 Microcytosis Not Reportable 12/09/16 08:41 Macrocytosis Not Reportable 12/09/16 08:41 Spherocytes Not Reportable 12/09/16 08:41 Pappenheimer Bodies Not Reportable 12/09/16 08:41 Sickle Cells Not Reportable 12/09/16 08:41 Target Cells Not Reportable 12/09/16 08:41 Tear Drop Cells Few 12/09/16 08:41 Ovalocytes Few 12/09/16 08:41 Helmet Cells Not Reportable 12/09/16 08:41 [place] Bodies Not Reportable 12/09/16 08:41 [place] Rings Not Reportable 12/09/16 08:41 Dona Cells Not Reportable 12/09/16 08:41 Bite Cells Not Reportable 12/09/16 08:41 Crenated Cell Not Reportable 12/09/16 08:41 Elliptocytes Not Reportable 12/09/16 08:41 Acanthocytes (Spur) Not Reportable 12/09/16 08:41 Rouleaux Not Reportable 12/09/16 08:41 Hemoglobin C Crystals Not Reportable 12/09/16 08:41 Schistocytes Not Reportable 12/09/16 08:41 Malaria parasites Not Reportable 12/09/16 08:41 Gabe Bodies Not Reportable 12/09/16 08:41 Hem Pathologist Commnt No 12/09/16 08:41 PT 14.5 Sec. (12.2-14.9) 11/22/16 07:20 INR 1.14 (0.87-1.13) H 11/22/16 07:20 APTT 37.7 Sec. (24.2-36.6) H 11/22/16 07:37 Activated Clotting Time 175 (74-137) H 11/22/16 14:25 POC ABG pH 7.456 (7.35-7.45) H 12/15/16 16:50 POC ABG pCO2 41.3 (35-45) 12/15/16 16:50 POC ABG pO2 61 (80-105) L 12/15/16 16:50 POC ABG HCO3 29.0 12/15/16 16:50 POC ABG Total CO2 30 12/15/16 16:50 POC ABG O2 Sat 92 12/15/16 16:50 POC ABG Base Excess 5 12/15/16 16:50 FiO2 21 % 12/15/16 16:50 Sodium 141 mmol/L (137-145) 12/18/16 07:30 Potassium 3.7 mmol/L (3.6-5.0) 12/18/16 07:30 Chloride 99.3 mmol/L (98-107) 12/18/16 07:30 Carbon Dioxide 28 mmol/L (22-30) 12/18/16 07:30 Anion Gap 17 mmol/L 12/18/16 07:30 BUN 8 mg/dL (7-17) 12/18/16 07:30 Creatinine 1.7 mg/dL (0.7-1.2) H 12/18/16 07:30 Estimated GFR 37 ml/min 12/18/16 07:30 BUN/Creatinine Ratio 4.70 % 12/18/16 07:30 Glucose 155 mg/dL (65-100) H 12/18/16 07:30 POC Glucose 174 (70-105) H 12/18/16 02:25 Osmolality 304 Mosm/kg 12/07/16 10:49 Lactic Acid 1.00 mmol/L (0.7-2.0) 11/26/16 06:11 Uric Acid 10.3 mg/dL (3.5-7.6) H 12/07/16 08:48 Calcium 9.2 mg/dL (8.4-10.2) 12/18/16 07:30 Total Bilirubin 1.10 mg/dL (0.1-1.2) 12/10/16 06:00 AST 25 units/L (5-40) 12/10/16 06:00 ALT 25 units/L (7-56) 12/10/16 06:00 Alkaline Phosphatase 84 units/L (35-129) 12/10/16 06:00 Total Creatine Kinase 188 units/L (30-135) H 12/07/16 08:48 CK-MB (CK-2) 2.7 ng/mL (0.0-4.0) 11/23/16 06:49 CK-MB (CK-2) Rel Index 1.4 (0-4) 11/23/16 06:49 Troponin T 0.012 ng/mL (0.00-0.029) 11/23/16 06:49 C-Reactive Protein 1.20 mg/dL (0.00-1.30) 11/25/16 13:02 Serum Total Protein 6.7 g/dL (6.1-8.1) 12/07/16 10:49 Total Protein 7.9 g/dL (6.3-8.2) 12/10/16 06:00 Albumin 5.1 g/dL (3.9-5) H 12/10/16 06:00 Albumin/Globulin Ratio 1.8 % 12/10/16 06:00 Rdgaw-3-[id number] 0.3 g/dL (0.2-0.3) 12/07/16 10:49 Susaq-8-Yojuefexd 0.7 g/dL (0.5-0.9) 12/07/16 10:49 Beta Globulins 0.2 g/dL (0.2-0.5) 12/07/16 10:49 Gamma Globulins 0.8 g/dL (0.8-1.7) 12/07/16 10:49 Abnorm Protein Band 1 see below 12/07/16 10:49 PEP Interpretation see below 12/07/16 10:49 TSH 0.610 mlU/mL (0.270-4.200) 11/25/16 20:44 Urine Color Yellow (Yellow) 12/07/16 17:25 Urine Turbidity Slightly-cloudy (Clear) 12/07/16 17:25 Urine pH 5.0 (5.0-7.0) 12/07/16 17:25 Ur Specific [place] 1.018 (1.003-1.030) 12/07/16 17:25 Urine Protein 100 mg/dl mg/dL (Negative) 12/07/16 17:25 Urine Glucose (UA) Neg mg/dL (Negative) 12/07/16 17:25 Urine Ketones Neg mg/dL (Negative) 12/07/16 17:25 Urine Blood Neg (Negative) 12/07/16 17:25 Urine Nitrite Neg (Negative) 12/07/16 17:25 Urine Bilirubin Neg (Negative) 12/07/16 17:25 Urine Urobilinogen < 2.0 mg/dL (<2.0) 12/07/16 17:25 Ur Leukocyte Esterase Neg (Negative) 12/07/16 17:25 Urine WBC (Auto) 9.0 /HPF (0.0-6.0) H 12/07/16 17:25 Urine RBC (Auto) 1.0 /HPF (0.0-6.0) 12/07/16 17:25 U Epithel Cells (Auto) 5.0 /HPF (0-13.0) 12/07/16 17:25 Urine Bacteria (Auto) 2+ /HPF (Negative) 12/04/16 14:30 Amorphous Crystals Few 12/07/16 17:25 Hyaline Casts 22 /LPF 12/07/16 17:25 Urine Eosinophils None seen (None Seen) 12/04/16 14:30 Urine Creatinine 336.8 mg/dL (0.1-20.0) H 12/07/16 17:25 Urine Sodium 13 mEq/L 12/07/16 17:25 Urine Potassium 70.20 mEq/L 11/24/16 21:57 Urine Chloride 31.3 mEq/L (110-250) L 11/24/16 21:57 BENJI Screen Negative (Negative) 12/07/16 10:49 Hepatitis A IgM Ab Non-reactive (NonReactive) 12/16/16 15:12 Hep Bs Antigen Non-reactive (Negative) 12/16/16 15:12 Hep B Core IgM Ab Non-reactive (NonReactive) 12/16/16 15:12 Hepatitis C Antibody Non-reactive (NonReactive) 12/16/16 15:12 Blood Type O POSITIVE 11/28/16 15:22 Antibody Screen TNR 11/28/16 15:22 HUDSON Antibody Screen Negative 11/28/16 15:22 Crossmatch See Detail 11/28/16 15:22
--- NOTE | 2016-12-18 16:21 | Progress Note ---
Assessment and Plan Patient alert, awake.. No acute respiratory distress.No complaint of chest pain or shortness of breath..Patient is on 3 litres O2 and O2 saturation 98%. - Patient Problems (1) PATRIA (acute kidney injury) Current Visit: Yes Status: Acute Plan to address problem: Management as per nephrology. (2) Acute encephalopathy Current Visit: Yes Status: Acute Plan to address problem: Patient more alert. Encephalopathy improving. (3) Anemia Current Visit: Yes Status: Acute Qualifiers: Anemia type: A Iron deficiency anemia type: I Vitamin B12 deficiency anemia type: V Folate deficiency anemia type: F Bone marrow failure anemia type: B Hemolytic anemia type: H Other causes of anemia: O Chronic kidney disease stage: C Plan to address problem: Management as per primary care. (4) CAD (coronary artery disease) of artery bypass graft Current Visit: Yes Status: Acute Qualifiers: [place] vs. transplanted heart: N Associated angina: A Plan to address problem: Management as per cardiology. (5) Obesity (BMI 30-39.9) Current Visit: Yes Status: Acute Plan to address problem: Weight reduction diet. (6) Sleep apnea Current Visit: Yes Status: Acute Qualifiers: Sleep apnea type: S Plan to address problem: Possible sleep apnea. BIPAP standby in the room. Recommend sleep study as out patient. Subjective Date of service: 12/18/16 Principal diagnosis: Acute Encephalopathy; PATRIA on Dialysis; CAD s/p PCI and stenting Interval history: Patient alert, awake.. No acute respiratory distress.No complaint of chest pain or shortness of breath..Patient is on 3 litres O2 and O2 saturation 92%. Objective Vital Signs - 12hr 12/18/16 12/18/16 12/18/16 05:10 08:00 09:41 Temperature 97.6 F 97.6 F Pulse Rate 74 Pulse Rate [ 64 74 Left Radial] Respiratory 18 20 Rate Blood Pressure 176/80 Blood Pressure 138/68 176/80 [Left Radial Artery] O2 Sat by Pulse 98 96 Oximetry 12/18/16 12/18/16 11:08 11:30 Temperature 98.2 F Pulse Rate Pulse Rate [ 72 Left Radial] Respiratory 20 Rate Blood Pressure Blood Pressure 168/78 [Left Radial Artery] O2 Sat by Pulse 98 98 Oximetry Constitutional: no acute distress, asleep Eyes: non-icteric ENT: oropharynx moist Neck: supple, no lymphadenopathy Effort: normal Ascultation: Bilateral: clear, diminished breath sounds, rales (scant in posterior bases) Cardiovascular: regular rate and rhythm Gastrointestinal: normoactive bowel sounds, soft, non-tender, non-distended Integumentary: normal Extremities: no cyanosis, no edema, pulses normal, no ischemia or petechiae Neurologic: normal mental status, non-focal exam, pupils equal and round, motor strength normal and Psychiatric: depressed CBC and BMP: 12/18/16 07:30 12/18/16 07:30 ABG, PT/INR, D-dimer: ABG POC ABG pH 7.456 (7.35-7.45) H 12/15/16 16:50 POC ABG pCO2 41.3 (35-45) 12/15/16 16:50 POC ABG pO2 61 (80-105) L 12/15/16 16:50 POC ABG HCO3 29.0 12/15/16 16:50 POC ABG Total CO2 30 12/15/16 16:50 POC ABG O2 Sat 92 12/15/16 16:50 PT/INR, D-dimer PT 14.5 Sec. (12.2-14.9) 11/22/16 07:20 INR 1.14 (0.87-1.13) H 11/22/16 07:20 Abnormal lab findings: Abnormal Labs 11/22/16 11/22/16 11/22/16 07:20 07:20 07:20 WBC RBC 3.52 L Hgb Hct Plt Count Lymph % (Auto) [place] % (Auto) 11.5 H Eos % (Auto) Lymph # Seg Neutrophils % Seg Neuts % (Manual) Lymphocytes % (Manual) Monocytes % (Manual) Lymphocytes # (Manual) INR 1.14 H APTT Activated Clotting Time POC ABG pH POC ABG pO2 Sodium Potassium Chloride 108.0 H Carbon Dioxide BUN 25 H Creatinine 1.4 H Glucose POC Glucose Uric Acid Calcium AST ALT Total Creatine Kinase Albumin Urine WBC (Auto) Urine Creatinine Urine Chloride Crossmatch 11/22/16 11/22/16 11/22/16 07:37 10:46 13:13 WBC RBC Hgb Hct Plt Count Lymph % (Auto) [place] % (Auto) Eos % (Auto) Lymph # Seg Neutrophils % Seg Neuts % (Manual) Lymphocytes % (Manual) Monocytes % (Manual) Lymphocytes # (Manual) INR APTT 37.7 H Activated Clotting Time 327 H 202 H POC ABG pH POC ABG pO2 Sodium Potassium Chloride Carbon Dioxide BUN Creatinine Glucose POC Glucose Uric Acid Calcium AST ALT Total Creatine Kinase Albumin Urine WBC (Auto) Urine Creatinine Urine Chloride Crossmatch 11/22/16 11/23/16 11/23/16 14:25 06:49 06:49 WBC 4.1 L RBC 2.74 L Hgb 7.7 L Hct 23.8 L D Plt Count 135 L Lymph % (Auto) [place] % (Auto) 13.8 H Eos % (Auto) Lymph # Seg Neutrophils % Seg Neuts % (Manual) Lymphocytes % (Manual) Monocytes % (Manual) Lymphocytes # (Manual) INR APTT Activated Clotting Time 175 H POC ABG pH POC ABG pO2 Sodium Potassium Chloride Carbon Dioxide BUN 27 H Creatinine 1.8 H Glucose 137 H POC Glucose Uric Acid Calcium 8.0 L AST ALT Total Creatine Kinase 183 H Albumin Urine WBC (Auto) Urine Creatinine Urine Chloride Crossmatch 11/23/16 11/23/16 11/23/16 11:07 12:45 17:32 WBC RBC 2.98 L Hgb 8.5 L Hct 26.3 L Plt Count Lymph % (Auto) [place] % (Auto) 13.2 H Eos % (Auto) Lymph # Seg Neutrophils % Seg Neuts % (Manual) Lymphocytes % (Manual) Monocytes % (Manual) Lymphocytes # (Manual) INR APTT Activated Clotting Time POC ABG pH POC ABG pO2 Sodium Potassium Chloride Carbon Dioxide BUN Creatinine Glucose POC Glucose 134 H 171 H Uric Acid Calcium AST ALT Total Creatine Kinase Albumin Urine WBC (Auto) Urine Creatinine Urine Chloride Crossmatch 11/23/16 11/24/16 11/24/16 21:24 05:28 05:28 WBC RBC Hgb 8.6 L Hct 26.8 L Plt Count Lymph % (Auto) [place] % (Auto) Eos % (Auto) Lymph # Seg Neutrophils % Seg Neuts % (Manual) Lymphocytes % (Manual) Monocytes % (Manual) Lymphocytes # (Manual) INR APTT Activated Clotting Time POC ABG pH POC ABG pO2 Sodium Potassium 5.9 H D Chloride Carbon Dioxide 19 L BUN 33 H Creatinine 2.7 H Glucose 162 H POC Glucose 174 H Uric Acid Calcium AST ALT Total Creatine Kinase Albumin Urine WBC (Auto) Urine Creatinine Urine Chloride Crossmatch 11/24/16 11/24/16 11/24/16 06:23 07:05 07:09 WBC RBC Hgb Hct Plt Count Lymph % (Auto) [place] % (Auto) Eos % (Auto) Lymph # Seg Neutrophils % Seg Neuts % (Manual) Lymphocytes % (Manual) Monocytes % (Manual) Lymphocytes # (Manual) INR APTT Activated Clotting Time POC ABG pH 7.264 L POC ABG pO2 33 L Sodium Potassium 5.8 H Chloride Carbon Dioxide 20 L BUN 33 H Creatinine 2.8 H Glucose 158 H POC Glucose 209 H Uric Acid Calcium AST 100 H ALT 118 H Total Creatine Kinase Albumin 3.5 L Urine WBC (Auto) Urine Creatinine Urine Chloride Crossmatch 11/24/16 11/24/16 11/24/16 07:19 08:50 11:45 WBC RBC Hgb Hct Plt Count Lymph % (Auto) [place] % (Auto) Eos % (Auto) Lymph # Seg Neutrophils % Seg Neuts % (Manual) Lymphocytes % (Manual) Monocytes % (Manual) Lymphocytes # (Manual) INR APTT Activated Clotting Time POC ABG pH 7.285 L POC ABG pO2 64 L Sodium Potassium Chloride Carbon Dioxide BUN Creatinine Glucose POC Glucose 193 H 169 H Uric Acid Calcium AST ALT Total Creatine Kinase Albumin Urine WBC (Auto) Urine Creatinine Urine Chloride Crossmatch 11/24/16 11/24/16 11/24/16 15:24 15:32 17:14 WBC RBC Hgb Hct Plt Count Lymph % (Auto) [place] % (Auto) Eos % (Auto) Lymph # Seg Neutrophils % Seg Neuts % (Manual) Lymphocytes % (Manual) Monocytes % (Manual) Lymphocytes # (Manual) INR APTT Activated Clotting Time POC ABG pH POC ABG pO2 Sodium Potassium 5.2 H Chloride Carbon Dioxide 20 L BUN 37 H Creatinine 3.0 H Glucose 144 H POC Glucose 195 H Uric Acid Calcium AST ALT Total Creatine Kinase Albumin Urine WBC (Auto) Urine Creatinine Urine Chloride Crossmatch See Detail 11/24/16 11/24/16 11/25/16 21:57 23:39 05:30 WBC RBC Hgb Hct Plt Count Lymph % (Auto) [place] % (Auto) Eos % (Auto) Lymph # Seg Neutrophils % Seg Neuts % (Manual) Lymphocytes % (Manual) Monocytes % (Manual) Lymphocytes # (Manual) INR APTT Activated Clotting Time POC ABG pH POC ABG pO2 Sodium Potassium Chloride Carbon Dioxide BUN Creatinine Glucose POC Glucose 112 H 129 H Uric Acid Calcium AST ALT Total Creatine Kinase Albumin Urine WBC (Auto) Urine Creatinine 295.3 H Urine Chloride 31.3 L Crossmatch 11/25/16 11/25/16 11/25/16 07:00 07:00 08:40 WBC RBC 3.30 L Hgb 9.5 L Hct 29.0 L Plt Count 119 L Lymph % (Auto) [place] % (Auto) 9.5 H Eos % (Auto) Lymph # Seg Neutrophils % 72.7 H Seg Neuts % (Manual) Lymphocytes % (Manual) Monocytes % (Manual) Lymphocytes # (Manual) INR APTT Activated Clotting Time POC ABG pH POC ABG pO2 Sodium Potassium Chloride 110.1 H Carbon Dioxide 18 L BUN 38 H Creatinine 2.6 H Glucose 123 H POC Glucose 129 H Uric Acid Calcium 8.2 L AST ALT Total Creatine Kinase Albumin Urine WBC (Auto) Urine Creatinine Urine Chloride Crossmatch 11/25/16 11/25/16 11/25/16 11:24 12:17 16:16 WBC RBC Hgb Hct Plt Count Lymph % (Auto) [place] % (Auto) Eos % (Auto) Lymph # Seg Neutrophils % Seg Neuts % (Manual) Lymphocytes % (Manual) Monocytes % (Manual) Lymphocytes # (Manual) INR APTT Activated Clotting Time POC ABG pH 7.327 L POC ABG pO2 Sodium Potassium Chloride Carbon Dioxide BUN Creatinine Glucose POC Glucose 142 H 151 H Uric Acid Calcium AST ALT Total Creatine Kinase Albumin Urine WBC (Auto) Urine Creatinine Urine Chloride Crossmatch 11/25/16 11/25/16 11/26/16 21:48 22:20 00:58 WBC RBC 3.23 L Hgb 9.2 L Hct 27.9 L Plt Count 119 L Lymph % (Auto) 10.2 L [place] % (Auto) 7.6 H Eos % (Auto) Lymph # 0.8 L Seg Neutrophils % 79.9 H Seg Neuts % (Manual) Lymphocytes % (Manual) Monocytes % (Manual) Lymphocytes # (Manual) INR APTT Activated Clotting Time POC ABG pH POC ABG pO2 67 L Sodium Potassium Chloride Carbon Dioxide BUN Creatinine Glucose POC Glucose 149 H Uric Acid Calcium AST ALT Total Creatine Kinase Albumin Urine WBC (Auto) Urine Creatinine Urine Chloride Crossmatch 11/26/16 11/26/16 11/26/16 06:11 07:40 11:28 WBC RBC Hgb Hct Plt Count Lymph % (Auto) [place] % (Auto) Eos % (Auto) Lymph # Seg Neutrophils % Seg Neuts % (Manual) Lymphocytes % (Manual) Monocytes % (Manual) Lymphocytes # (Manual) INR APTT Activated Clotting Time POC ABG pH POC ABG pO2 Sodium Potassium Chloride Carbon Dioxide 21 L BUN 41 H Creatinine 2.5 H Glucose 151 H POC Glucose 144 H 168 H Uric Acid Calcium 8.1 L AST ALT Total Creatine Kinase Albumin Urine WBC (Auto) Urine Creatinine Urine Chloride Crossmatch 11/26/16 11/27/16 11/27/16 15:50 00:03 03:45 WBC RBC Hgb Hct Plt Count Lymph % (Auto) [place] % (Auto) Eos % (Auto) Lymph # Seg Neutrophils % Seg Neuts % (Manual) Lymphocytes % (Manual) Monocytes % (Manual) Lymphocytes # (Manual) INR APTT Activated Clotting Time POC ABG pH POC ABG pO2 Sodium Potassium Chloride Carbon Dioxide BUN 46 H Creatinine 2.8 H Glucose 147 H POC Glucose 153 H 183 H Uric Acid Calcium 8.1 L AST ALT Total Creatine Kinase Albumin Urine WBC (Auto) Urine Creatinine Urine Chloride Crossmatch 11/27/16 11/27/16 11/27/16 06:26 07:32 11:53 WBC RBC Hgb Hct Plt Count Lymph % (Auto) [place] % (Auto) Eos % (Auto) Lymph # Seg Neutrophils % Seg Neuts % (Manual) Lymphocytes % (Manual) Monocytes % (Manual) Lymphocytes # (Manual) INR APTT Activated Clotting Time POC ABG pH POC ABG pO2 Sodium Potassium Chloride Carbon Dioxide BUN Creatinine Glucose POC Glucose 208 H 193 H 180 H Uric Acid Calcium AST ALT Total Creatine Kinase Albumin Urine WBC (Auto) Urine Creatinine Urine Chloride Crossmatch 11/27/16 11/27/16 11/28/16 16:42 21:51 08:13 WBC RBC Hgb Hct Plt Count Lymph % (Auto) [place] % (Auto) Eos % (Auto) Lymph # Seg Neutrophils % Seg Neuts % (Manual) Lymphocytes % (Manual) Monocytes % (Manual) Lymphocytes # (Manual) INR APTT Activated Clotting Time POC ABG pH POC ABG pO2 Sodium Potassium Chloride Carbon Dioxide BUN Creatinine Glucose POC Glucose 161 H 167 H 151 H Uric Acid Calcium AST ALT Total Creatine Kinase Albumin Urine WBC (Auto) Urine Creatinine Urine Chloride Crossmatch 11/28/16 11/28/16 11/28/16 10:01 10:01 12:30 WBC RBC Hgb 8.5 L Hct 25.3 L Plt Count Lymph % (Auto) [place] % (Auto) Eos % (Auto) Lymph # Seg Neutrophils % Seg Neuts % (Manual) Lymphocytes % (Manual) Monocytes % (Manual) Lymphocytes # (Manual) INR APTT Activated Clotting Time POC ABG pH POC ABG pO2 Sodium 136 L Potassium Chloride Carbon Dioxide BUN 50 H Creatinine 2.8 H Glucose 143 H POC Glucose 154 H Uric Acid Calcium 8.1 L AST ALT Total Creatine Kinase Albumin Urine WBC (Auto) Urine Creatinine Urine Chloride Crossmatch 11/28/16 11/28/16 11/28/16 15:22 16:55 20:40 WBC RBC Hgb Hct Plt Count Lymph % (Auto) [place] % (Auto) Eos % (Auto) Lymph # Seg Neutrophils % Seg Neuts % (Manual) Lymphocytes % (Manual) Monocytes % (Manual) Lymphocytes # (Manual) INR APTT Activated Clotting Time POC ABG pH POC ABG pO2 Sodium Potassium Chloride Carbon Dioxide BUN Creatinine Glucose POC Glucose 191 H 177 H Uric Acid Calcium AST ALT Total Creatine Kinase Albumin Urine WBC (Auto) Urine Creatinine Urine Chloride Crossmatch See Detail 11/29/16 11/29/16 11/29/16 07:18 07:18 07:31 WBC RBC Hgb 9.5 L Hct 28.2 L Plt Count Lymph % (Auto) [place] % (Auto) Eos % (Auto) Lymph # Seg Neutrophils % Seg Neuts % (Manual) Lymphocytes % (Manual) Monocytes % (Manual) Lymphocytes # (Manual) INR APTT Activated Clotting Time POC ABG pH POC ABG pO2 Sodium 136 L Potassium Chloride Carbon Dioxide BUN 51 H Creatinine 2.7 H Glucose 120 H POC Glucose 127 H Uric Acid Calcium 8.1 L AST ALT Total Creatine Kinase Albumin Urine WBC (Auto) Urine Creatinine Urine Chloride Crossmatch 11/29/16 11/29/16 11/29/16 12:49 17:35 20:31 WBC RBC Hgb Hct Plt Count Lymph % (Auto) [place] % (Auto) Eos % (Auto) Lymph # Seg Neutrophils % Seg Neuts % (Manual) Lymphocytes % (Manual) Monocytes % (Manual) Lymphocytes # (Manual) INR APTT Activated Clotting Time POC ABG pH POC ABG pO2 Sodium Potassium Chloride Carbon Dioxide BUN Creatinine Glucose POC Glucose 213 H 179 H 154 H Uric Acid Calcium AST ALT Total Creatine Kinase Albumin Urine WBC (Auto) Urine Creatinine Urine Chloride Crossmatch 11/30/16 11/30/16 11/30/16 08:25 09:52 16:07 WBC RBC Hgb Hct Plt Count Lymph % (Auto) [place] % (Auto) Eos % (Auto) Lymph # Seg Neutrophils % Seg Neuts % (Manual) Lymphocytes % (Manual) Monocytes % (Manual) Lymphocytes # (Manual) INR APTT Activated Clotting Time POC ABG pH POC ABG pO2 Sodium Potassium Chloride Carbon Dioxide BUN 52 H Creatinine 3.0 H Glucose 156 H POC Glucose 127 H 216 H Uric Acid Calcium AST ALT Total Creatine Kinase Albumin Urine WBC (Auto) Urine Creatinine Urine Chloride Crossmatch 11/30/16 12/01/16 12/01/16 20:45 08:34 08:48 WBC RBC Hgb Hct Plt Count Lymph % (Auto) [place] % (Auto) Eos % (Auto) Lymph # Seg Neutrophils % Seg Neuts % (Manual) Lymphocytes % (Manual) Monocytes % (Manual) Lymphocytes # (Manual) INR APTT Activated Clotting Time POC ABG pH POC ABG pO2 Sodium 136 L Potassium Chloride Carbon Dioxide BUN 50 H Creatinine 3.0 H Glucose 124 H POC Glucose 197 H 136 H Uric Acid Calcium AST ALT Total Creatine Kinase Albumin Urine WBC (Auto) Urine Creatinine Urine Chloride Crossmatch 12/01/16 12/01/16 12/01/16 11:35 16:56 22:08 WBC RBC Hgb Hct Plt Count Lymph % (Auto) [place] % (Auto) Eos % (Auto) Lymph # Seg Neutrophils % Seg Neuts % (Manual) Lymphocytes % (Manual) Monocytes % (Manual) Lymphocytes # (Manual) INR APTT Activated Clotting Time POC ABG pH POC ABG pO2 Sodium Potassium Chloride Carbon Dioxide BUN Creatinine Glucose POC Glucose 205 H 210 H 157 H Uric Acid Calcium AST ALT Total Creatine Kinase Albumin Urine WBC (Auto) Urine Creatinine Urine Chloride Crossmatch 12/02/16 12/02/16 12/02/16 05:52 08:47 15:16 WBC RBC Hgb Hct Plt Count Lymph % (Auto) [place] % (Auto) Eos % (Auto) Lymph # Seg Neutrophils % Seg Neuts % (Manual) Lymphocytes % (Manual) Monocytes % (Manual) Lymphocytes # (Manual) INR APTT Activated Clotting Time POC ABG pH POC ABG pO2 Sodium Potassium Chloride Carbon Dioxide BUN 48 H Creatinine 2.7 H Glucose 136 H POC Glucose 134 H 226 H Uric Acid Calcium AST ALT Total Creatine Kinase Albumin Urine WBC (Auto) Urine Creatinine Urine Chloride Crossmatch 12/02/16 12/03/16 12/03/16 22:53 05:58 05:58 WBC 4.2 L RBC 3.37 L Hgb 9.7 L Hct 29.4 L Plt Count Lymph % (Auto) [place] % (Auto) Eos % (Auto) Lymph # Seg Neutrophils % Seg Neuts % (Manual) Lymphocytes % (Manual) Monocytes % (Manual) Lymphocytes # (Manual) INR APTT Activated Clotting Time POC ABG pH POC ABG pO2 Sodium Potassium Chloride Carbon Dioxide BUN 47 H Creatinine 2.7 H Glucose 142 H POC Glucose 235 H Uric Acid Calcium AST ALT Total Creatine Kinase Albumin Urine WBC (Auto) Urine Creatinine Urine Chloride Crossmatch 12/03/16 12/03/16 12/03/16 13:04 16:47 21:50 WBC RBC Hgb Hct Plt Count Lymph % (Auto) [place] % (Auto) Eos % (Auto) Lymph # Seg Neutrophils % Seg Neuts % (Manual) Lymphocytes % (Manual) Monocytes % (Manual) Lymphocytes # (Manual) INR APTT Activated Clotting Time POC ABG pH POC ABG pO2 Sodium Potassium Chloride Carbon Dioxide BUN Creatinine Glucose POC Glucose 135 H 140 H 170 H Uric Acid Calcium AST ALT Total Creatine Kinase Albumin Urine WBC (Auto) Urine Creatinine Urine Chloride Crossmatch 12/04/16 12/04/16 12/04/16 07:26 12:21 16:43 WBC RBC Hgb Hct Plt Count Lymph % (Auto) [place] % (Auto) Eos % (Auto) Lymph # Seg Neutrophils % Seg Neuts % (Manual) Lymphocytes % (Manual) Monocytes % (Manual) Lymphocytes # (Manual) INR APTT Activated Clotting Time POC ABG pH POC ABG pO2 Sodium Potassium Chloride Carbon Dioxide BUN Creatinine Glucose POC Glucose 145 H 203 H 210 H Uric Acid Calcium AST ALT Total Creatine Kinase Albumin Urine WBC (Auto) Urine Creatinine Urine Chloride Crossmatch 12/04/16 12/05/16 12/05/16 21:41 07:54 07:54 WBC RBC 3.10 L Hgb 9.0 L Hct 26.9 L Plt Count Lymph % (Auto) [place] % (Auto) 13.8 H Eos % (Auto) 5.3 H Lymph # 1.1 L Seg Neutrophils % Seg Neuts % (Manual) Lymphocytes % (Manual) Monocytes % (Manual) Lymphocytes # (Manual) INR APTT Activated Clotting Time POC ABG pH POC ABG pO2 Sodium Potassium Chloride Carbon Dioxide BUN 51 H Creatinine 3.7 H Glucose 132 H POC Glucose 211 H Uric Acid Calcium AST ALT Total Creatine Kinase Albumin Urine WBC (Auto) Urine Creatinine Urine Chloride Crossmatch 12/05/16 12/05/16 12/05/16 08:30 11:46 22:02 WBC RBC Hgb Hct Plt Count Lymph % (Auto) [place] % (Auto) Eos % (Auto) Lymph # Seg Neutrophils % Seg Neuts % (Manual) Lymphocytes % (Manual) Monocytes % (Manual) Lymphocytes # (Manual) INR APTT Activated Clotting Time POC ABG pH POC ABG pO2 Sodium Potassium Chloride Carbon Dioxide BUN Creatinine Glucose POC Glucose 140 H 225 H 165 H Uric Acid Calcium AST ALT Total Creatine Kinase Albumin Urine WBC (Auto) Urine Creatinine Urine Chloride Crossmatch 12/06/16 12/06/16 12/06/16 08:17 09:10 09:10 WBC RBC Hgb Hct Plt Count Lymph % (Auto) [place] % (Auto) Eos % (Auto) Lymph # Seg Neutrophils % Seg Neuts % (Manual) Lymphocytes % (Manual) Monocytes % (Manual) Lymphocytes # (Manual) INR APTT Activated Clotting Time POC ABG pH POC ABG pO2 Sodium Potassium Chloride 97.6 L Carbon Dioxide BUN 50 H Creatinine 3.8 H Glucose 126 H POC Glucose 166 H Uric Acid 10.0 H Calcium AST ALT Total Creatine Kinase Albumin Urine WBC (Auto) Urine Creatinine Urine Chloride Crossmatch 12/06/16 12/06/16 12/06/16 12:18 17:39 22:31 WBC RBC Hgb Hct Plt Count Lymph % (Auto) [place] % (Auto) Eos % (Auto) Lymph # Seg Neutrophils % Seg Neuts % (Manual) Lymphocytes % (Manual) Monocytes % (Manual) Lymphocytes # (Manual) INR APTT Activated Clotting Time POC ABG pH POC ABG pO2 Sodium Potassium Chloride Carbon Dioxide BUN Creatinine Glucose POC Glucose 188 H 176 H 157 H Uric Acid Calcium AST ALT Total Creatine Kinase Albumin Urine WBC (Auto) Urine Creatinine Urine Chloride Crossmatch 12/07/16 12/07/16 12/07/16 08:48 08:49 09:01 WBC RBC Hgb Hct Plt Count Lymph % (Auto) [place] % (Auto) Eos % (Auto) Lymph # Seg Neutrophils % Seg Neuts % (Manual) Lymphocytes % (Manual) Monocytes % (Manual) Lymphocytes # (Manual) INR APTT Activated Clotting Time POC ABG pH POC ABG pO2 Sodium Potassium Chloride 97.9 L Carbon Dioxide BUN 52 H Creatinine 4.2 H Glucose 105 H POC Glucose 107 H Uric Acid 10.3 H Calcium AST ALT Total Creatine Kinase 188 H Albumin Urine WBC (Auto) Urine Creatinine Urine Chloride Crossmatch 12/07/16 12/07/16 12/07/16 12:27 16:59 17:25 WBC RBC Hgb Hct Plt Count Lymph % (Auto) [place] % (Auto) Eos % (Auto) Lymph # Seg Neutrophils % Seg Neuts % (Manual) Lymphocytes % (Manual) Monocytes % (Manual) Lymphocytes # (Manual) INR APTT Activated Clotting Time POC ABG pH POC ABG pO2 Sodium Potassium Chloride Carbon Dioxide BUN Creatinine Glucose POC Glucose 163 H 124 H Uric Acid Calcium AST ALT Total Creatine Kinase Albumin Urine WBC (Auto) 9.0 H Urine Creatinine Urine Chloride Crossmatch 12/07/16 12/07/16 12/08/16 17:25 22:04 07:53 WBC RBC Hgb Hct Plt Count Lymph % (Auto) [place] % (Auto) Eos % (Auto) Lymph # Seg Neutrophils % Seg Neuts % (Manual) Lymphocytes % (Manual) Monocytes % (Manual) Lymphocytes # (Manual) INR APTT Activated Clotting Time POC ABG pH POC ABG pO2 Sodium Potassium Chloride Carbon Dioxide BUN Creatinine Glucose POC Glucose 133 H 168 H Uric Acid Calcium AST ALT Total Creatine Kinase Albumin Urine WBC (Auto) Urine Creatinine 336.8 H Urine Chloride Crossmatch 12/08/16 12/08/16 12/08/16 08:05 12:17 22:09 WBC RBC Hgb Hct Plt Count Lymph % (Auto) [place] % (Auto) Eos % (Auto) Lymph # Seg Neutrophils % Seg Neuts % (Manual) Lymphocytes % (Manual) Monocytes % (Manual) Lymphocytes # (Manual) INR APTT Activated Clotting Time POC ABG pH POC ABG pO2 Sodium Potassium Chloride Carbon Dioxide BUN 55 H Creatinine 5.0 H Glucose 142 H POC Glucose 140 H 154 H Uric Acid Calcium AST ALT Total Creatine Kinase Albumin Urine WBC (Auto) Urine Creatinine Urine Chloride Crossmatch 12/09/16 12/09/1612/09/17 06:40 07:47 08:41 WBC RBC 3.09 L Hgb 8.8 L Hct 27.0 L Plt Count Lymph % (Auto) [place] % (Auto) Eos % (Auto) Lymph # Seg Neutrophils % Seg Neuts % (Manual) 75.0 H Lymphocytes % (Manual) 13.0 L Monocytes % (Manual) 8.0 H Lymphocytes # (Manual) 0.7 L INR APTT Activated Clotting Time POC ABG pH POC ABG pO2 Sodium Potassium Chloride Carbon Dioxide BUN 23 H Creatinine 3.1 H Glucose 108 H POC Glucose 115 H Uric Acid Calcium AST ALT Total Creatine Kinase Albumin Urine WBC (Auto) Urine Creatinine Urine Chloride Crossmatch 12/09/16 12/09/16 12/09/16 08:41 12:26 22:19 WBC RBC Hgb Hct Plt Count Lymph % (Auto) [place] % (Auto) Eos % (Auto) Lymph # Seg Neutrophils % Seg Neuts % (Manual) Lymphocytes % (Manual) Monocytes % (Manual) Lymphocytes # (Manual) INR APTT Activated Clotting Time POC ABG pH POC ABG pO2 Sodium Potassium Chloride Carbon Dioxide BUN 23 H Creatinine 3.0 H Glucose 108 H POC Glucose 140 H 139 H Uric Acid Calcium AST ALT Total Creatine Kinase Albumin Urine WBC (Auto) Urine Creatinine Urine Chloride Crossmatch 12/10/16 12/10/16 12/10/16 06:00 06:00 06:00 WBC RBC 3.47 L Hgb 9.8 L Hct Plt Count Lymph % (Auto) [place] % (Auto) Eos % (Auto) Lymph # Seg Neutrophils % Seg Neuts % (Manual) Lymphocytes % (Manual) Monocytes % (Manual) Lymphocytes # (Manual) INR APTT Activated Clotting Time POC ABG pH POC ABG pO2 Sodium Potassium Chloride Carbon Dioxide BUN Creatinine 1.9 H 1.9 H Glucose 120 H 120 H POC Glucose Uric Acid Calcium AST ALT Total Creatine Kinase Albumin 5.1 H Urine WBC (Auto) Urine Creatinine Urine Chloride Crossmatch 12/10/16 12/10/16 12/10/16 08:34 16:38 21:00 WBC RBC Hgb Hct Plt Count Lymph % (Auto) [place] % (Auto) Eos % (Auto) Lymph # Seg Neutrophils % Seg Neuts % (Manual) Lymphocytes % (Manual) Monocytes % (Manual) Lymphocytes # (Manual) INR APTT Activated Clotting Time POC ABG pH POC ABG pO2 Sodium Potassium Chloride Carbon Dioxide BUN Creatinine Glucose POC Glucose 137 H 109 H 155 H Uric Acid Calcium AST ALT Total Creatine Kinase Albumin Urine WBC (Auto) Urine Creatinine Urine Chloride Crossmatch 12/11/16 12/11/16 12/11/16 06:02 12:33 17:36 WBC RBC Hgb Hct Plt Count Lymph % (Auto) [place] % (Auto) Eos % (Auto) Lymph # Seg Neutrophils % Seg Neuts % (Manual) Lymphocytes % (Manual) Monocytes % (Manual) Lymphocytes # (Manual) INR APTT Activated Clotting Time POC ABG pH POC ABG pO2 Sodium Potassium Chloride 97.0 L Carbon Dioxide 31 H BUN Creatinine 2.3 H Glucose 133 H POC Glucose 131 H 145 H Uric Acid Calcium AST ALT Total Creatine Kinase Albumin Urine WBC (Auto) Urine Creatinine Urine Chloride Crossmatch 12/11/16 12/12/16 12/12/16 21:50 05:58 07:46 WBC RBC Hgb Hct Plt Count Lymph % (Auto) [place] % (Auto) Eos % (Auto) Lymph # Seg Neutrophils % Seg Neuts % (Manual) Lymphocytes % (Manual) Monocytes % (Manual) Lymphocytes # (Manual) INR APTT Activated Clotting Time POC ABG pH POC ABG pO2 Sodium Potassium Chloride Carbon Dioxide BUN Creatinine 3.5 H D Glucose 127 H POC Glucose 158 H 148 H Uric Acid Calcium AST ALT Total Creatine Kinase Albumin Urine WBC (Auto) Urine Creatinine Urine Chloride Crossmatch 12/12/16 12/12/16 12/12/16 11:42 15:55 21:56 WBC RBC Hgb Hct Plt Count Lymph % (Auto) [place] % (Auto) Eos % (Auto) Lymph # Seg Neutrophils % Seg Neuts % (Manual) Lymphocytes % (Manual) Monocytes % (Manual) Lymphocytes # (Manual) INR APTT Activated Clotting Time POC ABG pH POC ABG pO2 Sodium Potassium Chloride Carbon Dioxide BUN Creatinine Glucose POC Glucose 189 H 167 H 160 H Uric Acid Calcium AST ALT Total Creatine Kinase Albumin Urine WBC (Auto) Urine Creatinine Urine Chloride Crossmatch 12/13/16 12/13/16 12/13/16 04:31 04:31 08:03 WBC RBC 3.29 L Hgb 9.4 L Hct 28.9 L Plt Count Lymph % (Auto) [place] % (Auto) 9.2 H Eos % (Auto) Lymph # 1.1 L Seg Neutrophils % Seg Neuts % (Manual) Lymphocytes % (Manual) Monocytes % (Manual) Lymphocytes # (Manual) INR APTT Activated Clotting Time POC ABG pH POC ABG pO2 Sodium Potassium Chloride Carbon Dioxide BUN Creatinine 4.8 H Glucose 119 H POC Glucose 128 H Uric Acid Calcium AST ALT Total Creatine Kinase Albumin Urine WBC (Auto) Urine Creatinine Urine Chloride Crossmatch 12/13/16 12/13/16 12/14/16 17:16 21:37 05:57 WBC RBC 3.40 L Hgb 9.7 L Hct 30.0 L Plt Count Lymph % (Auto) [place] % (Auto) 11.2 H Eos % (Auto) Lymph # Seg Neutrophils % Seg Neuts % (Manual) Lymphocytes % (Manual) Monocytes % (Manual) Lymphocytes # (Manual) INR APTT Activated Clotting Time POC ABG pH POC ABG pO2 Sodium Potassium Chloride Carbon Dioxide BUN Creatinine Glucose POC Glucose 122 H 158 H Uric Acid Calcium AST ALT Total Creatine Kinase Albumin Urine WBC (Auto) Urine Creatinine Urine Chloride Crossmatch 12/14/16 12/14/16 12/14/16 05:57 08:29 12:53 WBC RBC Hgb Hct Plt Count Lymph % (Auto) [place] % (Auto) Eos % (Auto) Lymph # Seg Neutrophils % Seg Neuts % (Manual) Lymphocytes % (Manual) Monocytes % (Manual) Lymphocytes # (Manual) INR APTT Activated Clotting Time POC ABG pH POC ABG pO2 Sodium Potassium Chloride Carbon Dioxide BUN Creatinine 2.8 H Glucose POC Glucose 124 H 181 H Uric Acid Calcium AST ALT Total Creatine Kinase Albumin Urine WBC (Auto) Urine Creatinine Urine Chloride Crossmatch 12/14/16 12/14/16 12/15/16 17:50 22:59 05:30 WBC RBC Hgb Hct Plt Count Lymph % (Auto) [place] % (Auto) Eos % (Auto) Lymph # Seg Neutrophils % Seg Neuts % (Manual) Lymphocytes % (Manual) Monocytes % (Manual) Lymphocytes # (Manual) INR APTT Activated Clotting Time POC ABG pH POC ABG pO2 Sodium Potassium Chloride Carbon Dioxide BUN Creatinine 2.8 H Glucose 105 H POC Glucose 121 H 108 H Uric Acid Calcium AST ALT Total Creatine Kinase Albumin Urine WBC (Auto) Urine Creatinine Urine Chloride Crossmatch 12/15/16 12/15/16 12/15/16 08:06 08:49 16:50 WBC RBC 3.09 L Hgb 8.9 L Hct 27.6 L Plt Count Lymph % (Auto) [place] % (Auto) 12.4 H Eos % (Auto) Lymph # 1.0 L Seg Neutrophils % Seg Neuts % (Manual) Lymphocytes % (Manual) Monocytes % (Manual) Lymphocytes # (Manual) INR APTT Activated Clotting Time POC ABG pH 7.456 H POC ABG pO2 61 L Sodium Potassium Chloride Carbon Dioxide BUN Creatinine Glucose POC Glucose 156 H Uric Acid Calcium AST ALT Total Creatine Kinase Albumin Urine WBC (Auto) Urine Creatinine Urine Chloride Crossmatch 12/15/16 12/15/16 12/16/16 17:36 21:49 06:16 WBC RBC 2.91 L Hgb 8.3 L Hct 25.7 L Plt Count Lymph % (Auto) [place] % (Auto) 15.2 H Eos % (Auto) Lymph # 0.9 L Seg Neutrophils % Seg Neuts % (Manual) Lymphocytes % (Manual) Monocytes % (Manual) Lymphocytes # (Manual) INR APTT Activated Clotting Time POC ABG pH POC ABG pO2 Sodium Potassium Chloride Carbon Dioxide BUN Creatinine Glucose POC Glucose 177 H 203 H Uric Acid Calcium AST ALT Total Creatine Kinase Albumin Urine WBC (Auto) Urine Creatinine Urine Chloride Crossmatch 12/16/16 12/16/16 12/16/16 06:16 12:35 16:34 WBC RBC Hgb Hct Plt Count Lymph % (Auto) [place] % (Auto) Eos % (Auto) Lymph # Seg Neutrophils % Seg Neuts % (Manual) Lymphocytes % (Manual) Monocytes % (Manual) Lymphocytes # (Manual) INR APTT Activated Clotting Time POC ABG pH POC ABG pO2 Sodium Potassium Chloride Carbon Dioxide 31 H BUN Creatinine 2.1 H Glucose 175 H POC Glucose 206 H 187 H Uric Acid Calcium AST ALT Total Creatine Kinase Albumin Urine WBC (Auto) Urine Creatinine Urine Chloride Crossmatch 12/16/16 12/16/16 12/17/16 21:04 21:23 07:52 WBC 4.4 L RBC 3.00 L Hgb 8.7 L Hct 26.6 L Plt Count Lymph % (Auto) [place] % (Auto) 13.5 H Eos % (Auto) Lymph # 1.1 L Seg Neutrophils % Seg Neuts % (Manual) Lymphocytes % (Manual) Monocytes % (Manual) Lymphocytes # (Manual) INR APTT Activated Clotting Time POC ABG pH POC ABG pO2 Sodium Potassium Chloride Carbon Dioxide BUN Creatinine Glucose POC Glucose 171 H 144 H Uric Acid Calcium AST ALT Total Creatine Kinase Albumin Urine WBC (Auto) Urine Creatinine Urine Chloride Crossmatch 12/17/16 12/17/16 12/18/16 07:52 16:15 02:25 WBC RBC Hgb Hct Plt Count Lymph % (Auto) [place] % (Auto) Eos % (Auto) Lymph # Seg Neutrophils % Seg Neuts % (Manual) Lymphocytes % (Manual) Monocytes % (Manual) Lymphocytes # (Manual) INR APTT Activated Clotting Time POC ABG pH POC ABG pO2 Sodium Potassium Chloride Carbon Dioxide BUN Creatinine 3.1 H Glucose 111 H POC Glucose 133 H 174 H Uric Acid Calcium AST ALT Total Creatine Kinase Albumin Urine WBC (Auto) Urine Creatinine Urine Chloride Crossmatch 12/18/16 12/18/16 07:30 07:30 WBC RBC 3.36 L Hgb 9.7 L Hct 29.3 L Plt Count Lymph % (Auto) [place] % (Auto) 14.6 H Eos % (Auto) Lymph # Seg Neutrophils % Seg Neuts % (Manual) Lymphocytes % (Manual) Monocytes % (Manual) Lymphocytes # (Manual) INR APTT Activated Clotting Time POC ABG pH POC ABG pO2 Sodium Potassium Chloride Carbon Dioxide BUN Creatinine 1.7 H Glucose 155 H POC Glucose Uric Acid Calcium AST ALT Total Creatine Kinase Albumin Urine WBC (Auto) Urine Creatinine Urine Chloride Crossmatch
[2016-12-19 07:47] LABS: Basophils % (Auto) 0.8 % (0.0-1.8); Eosinophils % (Auto) 3.5 % (0.0-4.3); Hematocrit 29.1 % (30.3-42.9); Hemoglobin 9.5 gm/dl (10.1-14.3); Mean Corpuscular HGB Conc 33 % (30-34); Mean Corpuscular Hemoglobin 28 pg (28-32); Mean Corpuscular Volume 86 fl (79-97); Platelet Count 209 K/mm3 (140-440); Red Blood Count 3.37 M/mm3 (3.65-5.03); Red Cell Distribution Width 14.5 % (13.2-15.2); White Blood Count 4.8 K/mm3 (4.5-11.0)
[2016-12-19 08:01] LABS: BUN/Creatinine Ratio 6.66; Calcium 9.5 mg/dL (8.4-10.2); Chloride 98.8 mmol/L (98-107); Potassium 3.4 mmol/L (3.6-5.0)
--- NOTE | 2016-12-19 09:08 | Progress Note ---
Assessment and Plan Acute on CKD-- monitor renal function off dialysis for few days. Chart was reviewed. Ischemic cardiomyopathy- cardiology notes reviewed. S/P PCI Deconditioning HTN Anemia Mod-severe pul HTN Subjective Date of service: 12/19/16 Principal diagnosis: Acute Encephalopathy; PATRIA on Dialysis; CAD s/p PCI and stenting Interval history: pt is sleeping, but arousable, not in distress Objective - Vital Signs Vital signs: Vital Signs - 12hr 12/18/16 12/18/16 12/19/16 22:00 22:50 00:00 Temperature 99.3 F Pulse Rate 70 Pulse Rate [ 70 71 Left Radial] Pulse Rate [ Right Brachial] Respiratory 20 18 Rate Blood Pressure 127/60 Blood Pressure 143/63 [Left Radial Artery] Blood Pressure [Right Arm] O2 Sat by Pulse 98 100 Oximetry 12/19/16 12/19/16 12/19/16 02:00 05:00 07:30 Temperature 98.2 F 98.9 F Pulse Rate 70 Pulse Rate [ 70 71 Left Radial] Pulse Rate [ 71 Right Brachial] Respiratory 18 20 Rate Blood Pressure Blood Pressure 168/79 143/69 [Left Radial Artery] Blood Pressure 143/69 [Right Arm] O2 Sat by Pulse 100 95 Oximetry - General Appearance General appearance: chronically ill EENT: mucous membranes moist Neck: no JVD Respiratory: Present: Decreased Breath Sounds Cardiology: regular Gastrointestinal: normoactive bowel sounds Musculoskeletal: other (1+edema) Psychiatric: cooperative - Lab 12/19/16 06:34 12/19/16 06:34 Most recent lab results Calcium 9.5 mg/dL (8.4-10.2) 12/19/16 06:34 Urine Creatinine 336.8 mg/dL (0.1-20.0) H 12/07/16 17:25 Urine Sodium 13 mEq/L 12/07/16 17:25
[2016-12-19] MEDS: COREG PO SCH ×2 (10:34→22:40)
[2016-12-19] MEDS: EFFEXOR XR PO SCH (10:35)
[2016-12-19] MEDS: ECOTRIN PO SCH (10:35)
[2016-12-19] MEDS: HEPARIN SUB-Q SCH ×2 (10:35→22:40)
[2016-12-19] MEDS: IMDUR PO SCH (10:36)
[2016-12-19] MEDS: PLAVIX PO SCH (10:36)
[2016-12-19] MEDS: PROCARDIA XL PO SCH (10:36)
[2016-12-19] MEDS: PROTONIX PO SCH (10:37)
--- NOTE | 2016-12-19 12:40 | Progress Note ---
Assessment and Plan - Patient Problems (1) PATRIA (acute kidney injury) Current Visit: Yes Status: Acute Plan to address problem: Continue management of acute renal failure as directed by nephrology. (2) CAD (coronary artery disease) of artery bypass graft Current Visit: Yes Status: Acute Qualifiers: [place] vs. transplanted heart: N Associated angina: A Plan to address problem: Asymptomatic cardiac status status post coronary intervention to a subtotal occlusion of the saphenous vein graft to the right coronary artery. Continue aspirin and Plavix. Patient is stable for cardiac discharge, outpatient cardiac follow-up 1 week. Subjective Date of service: 12/19/16 Principal diagnosis: Acute Encephalopathy; PATRIA on Dialysis; CAD s/p PCI and stenting Interval history: Patient looks and feels better, no acute distress. She is awaiting discharge, as soon as outpatient dialysis is established. She is planned to have home health and home physical therapy. Objective Vital Signs Temp Pulse Pulse Pulse Resp BP BP 12/19/16 11:20 98.5 F 78 78 18 154/63 12/19/16 10:25 12/19/16 07:30 98.9 F 71 71 20 143/69 12/19/16 05:00 98.2 F 70 18 168/79 12/19/16 02:00 70 12/19/16 00:00 99.3 F 71 18 143/63 12/18/16 22:50 70 127/60 12/18/16 22:00 70 20 12/18/16 16:00 98.9 F 71 20 128/60 12/18/16 14:00 69 BP Pulse Ox 12/19/16 11:20 154/63 12/19/16 10:25 98 12/19/16 07:30 143/69 95 12/19/16 05:00 100 12/19/16 02:00 12/19/16 00:00 100 12/18/16 22:50 12/18/16 22:00 98 12/18/16 16:00 95 12/18/16 14:00 - Physical Examination General: Appears Well, No Apparent Distress HEENT: Positive: PERRL Neck: Positive: trachea midline Cardiac: Positive: Reg Rate and Rhythm Lungs: Positive: Decreased Breath Sounds Neuro: Positive: Grossly Intact, Weakness Abdomen: Positive: Soft, Distended Skin: Positive: Clear Incision: Cardiac Cath Site Extremities: Absent: edema - Labs and Meds CBC 12/19/16 Range/Units 06:34 WBC 4.8 (4.5-11.0) K/mm3 RBC 3.37 L (3.65-5.03) M/mm3 Hgb 9.5 L (10.1-14.3) gm/dl Hct 29.1 L (30.3-42.9) % Plt Count 209 (140-440) K/mm3 Lymph # 1.9 (1.2-5.4) K/mm3 [place] # 0.6 (0.0-0.8) K/mm3 Eos # 0.2 (0.0-0.4) K/mm3 Baso # 0.0 (0.0-0.1) K/mm3 Comprehensive Metabolic Panel 12/19/16 Range/Units 06:34 Sodium 141 (137-145) mmol/L Potassium 3.4 L (3.6-5.0) mmol/L Chloride 98.8 (98-107) mmol/L Carbon Dioxide 26 (22-30) mmol/L BUN 14 (7-17) mg/dL Creatinine 2.1 H (0.7-1.2) mg/dL Glucose 117 H (65-100) mg/dL Calcium 9.5 (8.4-10.2) mg/dL
--- NOTE | 2016-12-19 14:16 | Progress Note ---
Assessment and Plan Assessment and plan: Patient is a 56-year-old woman with a history of CKD 3 with baseline cr of 1.8, hyperlipidemia, hypertension, CAD, CHF with ejection fraction of 40-50% in 2013 and ischemic cardiomyopathy who presented for an outpatient cardiac catheterization 11/22/16 and had PCI of SVG to RCA with 99% to 0% with 3.0 mm DE stent. Patient was admitted by Cardiology in the hospital to monitor creatinine before discharge. Repeat labs in the morning did reveal an increase in creatinine around 2.7. Patient was also lethargic with altered sensorium and was placed in the ICU for close observation. Hospitalist consulted and . She was also on nitro drip but with no fever blood pressure was adequately controlled. Subsequently the Lasix was discontinued and HERO inhibitor discontinue due to the rise in creatinine. Nephrology and pulmonology/ ccm were consulted. It was determined that the patient will benefit from dialysis. Patient was subsequent transferred out of the ICU to the floor as she remained stable. D/w Dr. Arrieta who was seeing her until 12/13/16, sometime between 12/08/16 and 12/12/16, we became primary attending. I really don't know details. -Ischemic cardiomyopathy status post PCI of SVG TO RCA: Cardiology following. Continue dual antiplatelet therapy -Abdominal pain: Resolved. Likely constipation, lactulose prn and also fleet enema. no ascities noted as previously suspected, GI Consulted -Acute kidney injury on chronic kidney disease stage III likely contrast nephropathy.-Creatinine 1 back up to 3 with no clear evidence of renal recovery. Still a little uric, Nephrology following. PER Nephrology no ACEI OR ARBS on DISCHARGE. -Acute toxic Metabolic encephalopathy- Resolved CT of the brain negative. -Acute blood loss anemia- S/P 2 units packed red blood cell transfusion. Hemoglobin is stable. We'll check intermittent. No GI bleed noted. -Hypertension- Stable -Anasarca-improved. Patient was initially treated with IV Lasix and albumin this has been since discontinued. Expect improvement with dialysis. -Moderate to severe pulmonary hypertension- cardiology following. -DVT and GI prophylaxis -Plan of care discussed in detail with the patient and (over the phone per wishes). Awaiting to see if she has progressed to ESRD to setup outpt Hemodialysis D/W Case management and pulmonology: send Hepatitis panel for Hemodialysis setup ; Awaiting HD chair 12/17/16: CR went back up, most likely will be HD dependant, HD setup pending 12/18/16: cr back down, continue to monitor 12/19/16: Awaiting hemodialysis chair time History Interval history: Patient seen and examined. Follow up on acute renal failure. Overnight uneventful. No cp, sob, n/v or severe headaches. Imaging, old records, testing, labs, nursing notes reviewed. Hospitalist Physical - Physical exam Narrative exam: GEN: WDWN, NAD, AWAKE, ALERT, ORIENTATED x 3 CVS: RRR, NORMAL S1S2 LUNGS/CHEST: NORMAL CHEST EXPANSION B, GOOD AIR ENTRY B ABD: SOFT, NTND, GBS, NO REBOUND OR GUARDING MSK: FROM X 4 EXTREMITIES NEURO: CN 2-12 GROSSLY INTACT except left eye blindness, NO new FOCAL DEFICITS PSY: CALM - Constitutional Vitals: Temp Pulse Resp BP Pulse Ox 98.5 F 78 18 154/63 98 12/19/16 11:20 12/19/16 11:20 12/19/16 11:20 12/19/16 11:20 12/19/16 10:25 General appearance: Present: no acute distress Results - Labs CBC & Chem 7: 12/19/16 06:34 12/19/16 06:34 Labs: Laboratory Last Values WBC 4.8 K/mm3 (4.5-11.0) 12/19/16 06:34 RBC 3.37 M/mm3 (3.65-5.03) L 12/19/16 06:34 Hgb 9.5 gm/dl (10.1-14.3) L 12/19/16 06:34 Hct 29.1 % (30.3-42.9) L 12/19/16 06:34 MCV 86 fl (79-97) 12/19/16 06:34 MCH 28 pg (28-32) 12/19/16 06:34 MCHC 33 % (30-34) 12/19/16 06:34 RDW 14.5 % (13.2-15.2) 12/19/16 06:34 Plt Count 209 K/mm3 (140-440) 12/19/16 06:34 Lymph % (Auto) 38.8 % (13.4-35.0) H 12/19/16 06:34 [place] % (Auto) 11.5 % (0.0-7.3) H 12/19/16 06:34 Eos % (Auto) 3.5 % (0.0-4.3) 12/19/16 06:34 Baso % (Auto) 0.8 % (0.0-1.8) 12/19/16 06:34 Lymph # 1.9 K/mm3 (1.2-5.4) 12/19/16 06:34 [place] # 0.6 K/mm3 (0.0-0.8) 12/19/16 06:34 Eos # 0.2 K/mm3 (0.0-0.4) 12/19/16 06:34 Baso # 0.0 K/mm3 (0.0-0.1) 12/19/16 06:34 Add Manual Diff Complete 12/09/16 08:41 Total Counted 100 12/09/16 08:41 Seg Neutrophils % 45.4 % (40.0-70.0) 12/19/16 06:34 Seg Neuts % (Manual) 75.0 % (40.0-70.0) H 12/09/16 08:41 Band Neutrophils % 0 % 12/09/16 08:41 Lymphocytes % (Manual) 13.0 % (13.4-35.0) L 12/09/16 08:41 Reactive Lymphs % (Man) 0 % 12/09/16 08:41 Monocytes % (Manual) 8.0 % (0.0-7.3) H 12/09/16 08:41 Eosinophils % (Manual) 3.0 % (0.0-4.3) 12/09/16 08:41 Basophils % (Manual) 1.0 % (0.0-1.8) 12/09/16 08:41 Metamyelocytes % 0 % 12/09/16 08:41 Myelocytes % 0 % 12/09/16 08:41 Promyelocytes % 0 % 12/09/16 08:41 Blast Cells % 0 % 12/09/16 08:41 Nucleated RBC % Not Reportable 12/09/16 08:41 Seg Neutrophils # 2.2 K/mm3 (1.8-7.7) 12/19/16 06:34 Seg Neutrophils # Man 3.8 K/mm3 (1.8-7.7) 12/09/16 08:41 Band Neutrophils # 0.0 K/mm3 12/09/16 08:41 Lymphocytes # (Manual) 0.7 K/mm3 (1.2-5.4) L 12/09/16 08:41 Abs React Lymphs (Man) 0.0 K/mm3 12/09/16 08:41 Monocytes # (Manual) 0.4 K/mm3 (0.0-0.8) 12/09/16 08:41 Eosinophils # (Manual) 0.2 K/mm3 (0.0-0.4) 12/09/16 08:41 Basophils # (Manual) 0.1 K/mm3 (0.0-0.1) 12/09/16 08:41 Metamyelocytes # 0.0 K/mm3 12/09/16 08:41 Myelocytes # 0.0 K/mm3 12/09/16 08:41 Promyelocytes # 0.0 K/mm3 12/09/16 08:41 Blast Cells # 0.0 K/mm3 12/09/16 08:41 WBC Morphology Not Reportable 12/09/16 08:41 Hypersegmented Neuts Not Reportable 12/09/16 08:41 Hyposegmented Neuts Not Reportable 12/09/16 08:41 Hypogranular Neuts Not Reportable 12/09/16 08:41 Smudge Cells Not Reportable 12/09/16 08:41 Toxic Granulation Not Reportable 12/09/16 08:41 Toxic Vacuolation Not Reportable 12/09/16 08:41 Dohle Bodies Not Reportable 12/09/16 08:41 [place] Anomaly Not Reportable 12/09/16 08:41 Rich Rods Not Reportable 12/09/16 08:41 Platelet Estimate Appears normal 12/09/16 08:41 Clumped Platelets Not Reportable 12/09/16 08:41 Plt Clumps, EDTA Not Reportable 12/09/16 08:41 Large Platelets Not Reportable 12/09/16 08:41 Giant Platelets Not Reportable 12/09/16 08:41 Platelet Satelliting Not Reportable 12/09/16 08:41 Plt Morphology Comment Not Reportable 12/09/16 08:41 RBC Morphology Not Reportable 12/09/16 08:41 Dimorphic RBCs Not Reportable 12/09/16 08:41 Polychromasia Not Reportable 12/09/16 08:41 Hypochromasia Not Reportable 12/09/16 08:41 Poikilocytosis Not Reportable 12/09/16 08:41 Anisocytosis 1+ 12/09/16 08:41 Microcytosis Not Reportable 12/09/16 08:41 Macrocytosis Not Reportable 12/09/16 08:41 Spherocytes Not Reportable 12/09/16 08:41 Pappenheimer Bodies Not Reportable 12/09/16 08:41 Sickle Cells Not Reportable 12/09/16 08:41 Target Cells Not Reportable 12/09/16 08:41 Tear Drop Cells Few 12/09/16 08:41 Ovalocytes Few 12/09/16 08:41 Helmet Cells Not Reportable 12/09/16 08:41 [place] Bodies Not Reportable 12/09/16 08:41 [place] Rings Not Reportable 12/09/16 08:41 Dona Cells Not Reportable 12/09/16 08:41 Bite Cells Not Reportable 12/09/16 08:41 Crenated Cell Not Reportable 12/09/16 08:41 Elliptocytes Not Reportable 12/09/16 08:41 Acanthocytes (Spur) Not Reportable 12/09/16 08:41 Rouleaux Not Reportable 12/09/16 08:41 Hemoglobin C Crystals Not Reportable 12/09/16 08:41 Schistocytes Not Reportable 12/09/16 08:41 Malaria parasites Not Reportable 12/09/16 08:41 Gabe Bodies Not Reportable 12/09/16 08:41 Hem Pathologist Commnt No 12/09/16 08:41 PT 14.5 Sec. (12.2-14.9) 11/22/16 07:20 INR 1.14 (0.87-1.13) H 11/22/16 07:20 APTT 37.7 Sec. (24.2-36.6) H 11/22/16 07:37 Activated Clotting Time 175 (74-137) H 11/22/16 14:25 POC ABG pH 7.456 (7.35-7.45) H 12/15/16 16:50 POC ABG pCO2 41.3 (35-45) 12/15/16 16:50 POC ABG pO2 61 (80-105) L 12/15/16 16:50 POC ABG HCO3 29.0 12/15/16 16:50 POC ABG Total CO2 30 12/15/16 16:50 POC ABG O2 Sat 92 12/15/16 16:50 POC ABG Base Excess 5 12/15/16 16:50 FiO2 21 % 12/15/16 16:50 Sodium 141 mmol/L (137-145) 12/19/16 06:34 Potassium 3.4 mmol/L (3.6-5.0) L 12/19/16 06:34 Chloride 98.8 mmol/L (98-107) 12/19/16 06:34 Carbon Dioxide 26 mmol/L (22-30) 12/19/16 06:34 Anion Gap 20 mmol/L 12/19/16 06:34 BUN 14 mg/dL (7-17) 12/19/16 06:34 Creatinine 2.1 mg/dL (0.7-1.2) H 12/19/16 06:34 Estimated GFR 29 ml/min 12/19/16 06:34 BUN/Creatinine Ratio 6.66 % 12/19/16 06:34 Glucose 117 mg/dL (65-100) H 12/19/16 06:34 POC Glucose 152 (70-105) H 12/19/16 11:46 Osmolality 304 Mosm/kg 12/07/16 10:49 Lactic Acid 1.00 mmol/L (0.7-2.0) 11/26/16 06:11 Uric Acid 10.3 mg/dL (3.5-7.6) H 12/07/16 08:48 Calcium 9.5 mg/dL (8.4-10.2) 12/19/16 06:34 Total Bilirubin 1.10 mg/dL (0.1-1.2) 12/10/16 06:00 AST 25 units/L (5-40) 12/10/16 06:00 ALT 25 units/L (7-56) 12/10/16 06:00 Alkaline Phosphatase 84 units/L (35-129) 12/10/16 06:00 Total Creatine Kinase 188 units/L (30-135) H 12/07/16 08:48 CK-MB (CK-2) 2.7 ng/mL (0.0-4.0) 11/23/16 06:49 CK-MB (CK-2) Rel Index 1.4 (0-4) 11/23/16 06:49 Troponin T 0.012 ng/mL (0.00-0.029) 11/23/16 06:49 C-Reactive Protein 1.20 mg/dL (0.00-1.30) 11/25/16 13:02 Serum Total Protein 6.7 g/dL (6.1-8.1) 12/07/16 10:49 Total Protein 7.9 g/dL (6.3-8.2) 12/10/16 06:00 Albumin 5.1 g/dL (3.9-5) H 12/10/16 06:00 Albumin/Globulin Ratio 1.8 % 12/10/16 06:00 Yjvzu-[id number] 0.3 g/dL (0.2-0.3) 12/07/16 10:49 [id number]-9-[id number] 0.7 g/dL (0.5-0.9) 12/07/16 10:49 Beta Globulins 0.2 g/dL (0.2-0.5) 12/07/16 10:49 Gamma Globulins 0.8 g/dL (0.8-1.7) 12/07/16 10:49 Abnorm Protein Band 1 see below 12/07/16 10:49 PEP Interpretation see below 12/07/16 10:49 TSH 0.610 mlU/mL (0.270-4.200) 11/25/16 20:44 Urine Color Yellow (Yellow) 12/07/16 17:25 Urine Turbidity Slightly-cloudy (Clear) 12/07/16 17:25 Urine pH 5.0 (5.0-7.0) 12/07/16 17:25 Ur Specific [place] 1.018 (1.003-1.030) 12/07/16 17:25 Urine Protein 100 mg/dl mg/dL (Negative) 12/07/16 17:25 Urine Glucose (UA) Neg mg/dL (Negative) 12/07/16 17:25 Urine Ketones Neg mg/dL (Negative) 12/07/16 17:25 Urine Blood Neg (Negative) 12/07/16 17:25 Urine Nitrite Neg (Negative) 12/07/16 17:25 Urine Bilirubin Neg (Negative) 12/07/16 17:25 Urine Urobilinogen < 2.0 mg/dL (<2.0) 12/07/16 17:25 Ur Leukocyte Esterase Neg (Negative) 12/07/16 17:25 Urine WBC (Auto) 9.0 /HPF (0.0-6.0) H 12/07/16 17:25 Urine RBC (Auto) 1.0 /HPF (0.0-6.0) 12/07/16 17:25 U Epithel Cells (Auto) 5.0 /HPF (0-13.0) 12/07/16 17:25 Urine Bacteria (Auto) 2+ /HPF (Negative) 12/04/16 14:30 Amorphous Crystals Few 12/07/16 17:25 Hyaline Casts 22 /LPF 12/07/16 17:25 Urine Eosinophils None seen (None Seen) 12/04/16 14:30 Urine Creatinine 336.8 mg/dL (0.1-20.0) H 12/07/16 17:25 Urine Sodium 13 mEq/L 12/07/16 17:25 Urine Potassium 70.20 mEq/L 11/24/16 21:57 Urine Chloride 31.3 mEq/L (110-250) L 11/24/16 21:57 BENJI Screen Negative (Negative) 12/07/16 10:49 Hepatitis A IgM Ab Non-reactive (NonReactive) 12/16/16 15:12 Hep Bs Antigen Non-reactive (Negative) 12/16/16 15:12 Hep B Core IgM Ab Non-reactive (NonReactive) 12/16/16 15:12 Hepatitis C Antibody Non-reactive (NonReactive) 12/16/16 15:12 Blood Type O POSITIVE 11/28/16 15:22 Antibody Screen TNR 11/28/16 15:22 HUDSON Antibody Screen Negative 11/28/16 15:22 Crossmatch See Detail 11/28/16 15:22
--- NOTE | 2016-12-19 19:04 | Progress Note ---
Assessment and Plan Patient alert, awake.. No acute respiratory distress.No complaint of chest pain or shortness of breath..Patient resting on room air and O2 saturation 98%. - Patient Problems (1) PATRIA (acute kidney injury) Current Visit: Yes Status: Acute Plan to address problem: Management as per nephrology. (2) Acute encephalopathy Current Visit: Yes Status: Acute Plan to address problem: Patient more alert. Encephalopathy improving. (3) Anemia Current Visit: Yes Status: Acute Qualifiers: Anemia type: A Iron deficiency anemia type: I Vitamin B12 deficiency anemia type: V Folate deficiency anemia type: F Bone marrow failure anemia type: B Hemolytic anemia type: H Other causes of anemia: O Chronic kidney disease stage: C Plan to address problem: Management as per primary care. (4) CAD (coronary artery disease) of artery bypass graft Current Visit: Yes Status: Acute Qualifiers: [place] vs. transplanted heart: N Associated angina: A Plan to address problem: Management as per cardiology. (5) Obesity (BMI 30-39.9) Current Visit: Yes Status: Acute Plan to address problem: Weight reduction diet. (6) Sleep apnea Current Visit: Yes Status: Acute Qualifiers: Sleep apnea type: S Plan to address problem: Possible sleep apnea. BIPAP standby in the room. Recommend sleep study as out patient. Subjective Date of service: 12/19/16 Principal diagnosis: Acute Encephalopathy; PATRIA on Dialysis; CAD s/p PCI and stenting Interval history: Patient alert, awake.. No acute respiratory distress.No complaint of chest pain or shortness of breath..Patient resting on room air and O2 saturation 98%. Objective Vital Signs - 12hr 12/19/16 12/19/16 12/19/16 07:30 10:25 11:20 Temperature 98.9 F 98.5 F Pulse Rate [ 71 78 Left Radial] Pulse Rate [ 71 78 Right Brachial] Respiratory 20 18 Rate Blood Pressure 143/69 154/63 [Left Radial Artery] Blood Pressure 143/69 154/63 [Right Arm] O2 Sat by Pulse 95 98 Oximetry 12/19/16 15:10 Temperature 99.1 F Pulse Rate [ 74 Left Radial] Pulse Rate [ 74 Right Brachial] Respiratory 18 Rate Blood Pressure 129/60 [Left Radial Artery] Blood Pressure 129/60 [Right Arm] O2 Sat by Pulse Oximetry Constitutional: no acute distress, asleep Eyes: non-icteric ENT: oropharynx moist Neck: supple, no lymphadenopathy Effort: normal Ascultation: Bilateral: diminished breath sounds, rales (scant in posterior bases) Cardiovascular: regular rate and rhythm Gastrointestinal: normoactive bowel sounds, soft, non-tender, non-distended Integumentary: normal Extremities: no cyanosis, no edema, pulses normal, no ischemia or petechiae Neurologic: normal mental status, non-focal exam, pupils equal and round, motor strength normal and Psychiatric: depressed CBC and BMP: 12/19/16 06:34 12/19/16 06:34 ABG, PT/INR, D-dimer: ABG POC ABG pH 7.456 (7.35-7.45) H 12/15/16 16:50 POC ABG pCO2 41.3 (35-45) 12/15/16 16:50 POC ABG pO2 61 (80-105) L 12/15/16 16:50 POC ABG HCO3 29.0 12/15/16 16:50 POC ABG Total CO2 30 12/15/16 16:50 POC ABG O2 Sat 92 12/15/16 16:50 PT/INR, D-dimer PT 14.5 Sec. (12.2-14.9) 11/22/16 07:20 INR 1.14 (0.87-1.13) H 11/22/16 07:20 Abnormal lab findings: Abnormal Labs 11/22/16 11/22/16 11/22/16 07:20 07:20 07:20 WBC RBC 3.52 L Hgb Hct Plt Count Lymph % (Auto) [place] % (Auto) 11.5 H Eos % (Auto) Lymph # Seg Neutrophils % Seg Neuts % (Manual) Lymphocytes % (Manual) Monocytes % (Manual) Lymphocytes # (Manual) INR 1.14 H APTT Activated Clotting Time POC ABG pH POC ABG pO2 Sodium Potassium Chloride 108.0 H Carbon Dioxide BUN 25 H Creatinine 1.4 H Glucose POC Glucose Uric Acid Calcium AST ALT Total Creatine Kinase Albumin Urine WBC (Auto) Urine Creatinine Urine Chloride Crossmatch 11/22/16 11/22/16 11/22/16 07:37 10:46 13:13 WBC RBC Hgb Hct Plt Count Lymph % (Auto) [place] % (Auto) Eos % (Auto) Lymph # Seg Neutrophils % Seg Neuts % (Manual) Lymphocytes % (Manual) Monocytes % (Manual) Lymphocytes # (Manual) INR APTT 37.7 H Activated Clotting Time 327 H 202 H POC ABG pH POC ABG pO2 Sodium Potassium Chloride Carbon Dioxide BUN Creatinine Glucose POC Glucose Uric Acid Calcium AST ALT Total Creatine Kinase Albumin Urine WBC (Auto) Urine Creatinine Urine Chloride Crossmatch 11/22/16 11/23/16 11/23/16 14:25 06:49 06:49 WBC 4.1 L RBC 2.74 L Hgb 7.7 L Hct 23.8 L D Plt Count 135 L Lymph % (Auto) [place] % (Auto) 13.8 H Eos % (Auto) Lymph # Seg Neutrophils % Seg Neuts % (Manual) Lymphocytes % (Manual) Monocytes % (Manual) Lymphocytes # (Manual) INR APTT Activated Clotting Time 175 H POC ABG pH POC ABG pO2 Sodium Potassium Chloride Carbon Dioxide BUN 27 H Creatinine 1.8 H Glucose 137 H POC Glucose Uric Acid Calcium 8.0 L AST ALT Total Creatine Kinase 183 H Albumin Urine WBC (Auto) Urine Creatinine Urine Chloride Crossmatch 11/23/16 11/23/16 11/23/16 11:07 12:45 17:32 WBC RBC 2.98 L Hgb 8.5 L Hct 26.3 L Plt Count Lymph % (Auto) [place] % (Auto) 13.2 H Eos % (Auto) Lymph # Seg Neutrophils % Seg Neuts % (Manual) Lymphocytes % (Manual) Monocytes % (Manual) Lymphocytes # (Manual) INR APTT Activated Clotting Time POC ABG pH POC ABG pO2 Sodium Potassium Chloride Carbon Dioxide BUN Creatinine Glucose POC Glucose 134 H 171 H Uric Acid Calcium AST ALT Total Creatine Kinase Albumin Urine WBC (Auto) Urine Creatinine Urine Chloride Crossmatch 11/23/16 11/24/16 11/24/16 21:24 05:28 05:28 WBC RBC Hgb 8.6 L Hct 26.8 L Plt Count Lymph % (Auto) [place] % (Auto) Eos % (Auto) Lymph # Seg Neutrophils % Seg Neuts % (Manual) Lymphocytes % (Manual) Monocytes % (Manual) Lymphocytes # (Manual) INR APTT Activated Clotting Time POC ABG pH POC ABG pO2 Sodium Potassium 5.9 H D Chloride Carbon Dioxide 19 L BUN 33 H Creatinine 2.7 H Glucose 162 H POC Glucose 174 H Uric Acid Calcium AST ALT Total Creatine Kinase Albumin Urine WBC (Auto) Urine Creatinine Urine Chloride Crossmatch 11/24/16 11/24/16 11/24/16 06:23 07:05 07:09 WBC RBC Hgb Hct Plt Count Lymph % (Auto) [place] % (Auto) Eos % (Auto) Lymph # Seg Neutrophils % Seg Neuts % (Manual) Lymphocytes % (Manual) Monocytes % (Manual) Lymphocytes # (Manual) INR APTT Activated Clotting Time POC ABG pH 7.264 L POC ABG pO2 33 L Sodium Potassium 5.8 H Chloride Carbon Dioxide 20 L BUN 33 H Creatinine 2.8 H Glucose 158 H POC Glucose 209 H Uric Acid Calcium AST 100 H ALT 118 H Total Creatine Kinase Albumin 3.5 L Urine WBC (Auto) Urine Creatinine Urine Chloride Crossmatch 11/24/16 11/24/16 11/24/16 07:19 08:50 11:45 WBC RBC Hgb Hct Plt Count Lymph % (Auto) [place] % (Auto) Eos % (Auto) Lymph # Seg Neutrophils % Seg Neuts % (Manual) Lymphocytes % (Manual) Monocytes % (Manual) Lymphocytes # (Manual) INR APTT Activated Clotting Time POC ABG pH 7.285 L POC ABG pO2 64 L Sodium Potassium Chloride Carbon Dioxide BUN Creatinine Glucose POC Glucose 193 H 169 H Uric Acid Calcium AST ALT Total Creatine Kinase Albumin Urine WBC (Auto) Urine Creatinine Urine Chloride Crossmatch 11/24/16 11/24/16 11/24/16 15:24 15:32 17:14 WBC RBC Hgb Hct Plt Count Lymph % (Auto) [place] % (Auto) Eos % (Auto) Lymph # Seg Neutrophils % Seg Neuts % (Manual) Lymphocytes % (Manual) Monocytes % (Manual) Lymphocytes # (Manual) INR APTT Activated Clotting Time POC ABG pH POC ABG pO2 Sodium Potassium 5.2 H Chloride Carbon Dioxide 20 L BUN 37 H Creatinine 3.0 H Glucose 144 H POC Glucose 195 H Uric Acid Calcium AST ALT Total Creatine Kinase Albumin Urine WBC (Auto) Urine Creatinine Urine Chloride Crossmatch See Detail 11/24/16 11/24/16 11/25/16 21:57 23:39 05:30 WBC RBC Hgb Hct Plt Count Lymph % (Auto) [place] % (Auto) Eos % (Auto) Lymph # Seg Neutrophils % Seg Neuts % (Manual) Lymphocytes % (Manual) Monocytes % (Manual) Lymphocytes # (Manual) INR APTT Activated Clotting Time POC ABG pH POC ABG pO2 Sodium Potassium Chloride Carbon Dioxide BUN Creatinine Glucose POC Glucose 112 H 129 H Uric Acid Calcium AST ALT Total Creatine Kinase Albumin Urine WBC (Auto) Urine Creatinine 295.3 H Urine Chloride 31.3 L Crossmatch 11/25/16 11/25/16 11/25/16 07:00 07:00 08:40 WBC RBC 3.30 L Hgb 9.5 L Hct 29.0 L Plt Count 119 L Lymph % (Auto) [place] % (Auto) 9.5 H Eos % (Auto) Lymph # Seg Neutrophils % 72.7 H Seg Neuts % (Manual) Lymphocytes % (Manual) Monocytes % (Manual) Lymphocytes # (Manual) INR APTT Activated Clotting Time POC ABG pH POC ABG pO2 Sodium Potassium Chloride 110.1 H Carbon Dioxide 18 L BUN 38 H Creatinine 2.6 H Glucose 123 H POC Glucose 129 H Uric Acid Calcium 8.2 L AST ALT Total Creatine Kinase Albumin Urine WBC (Auto) Urine Creatinine Urine Chloride Crossmatch 11/25/16 11/25/16 11/25/16 11:24 12:17 16:16 WBC RBC Hgb Hct Plt Count Lymph % (Auto) [place] % (Auto) Eos % (Auto) Lymph # Seg Neutrophils % Seg Neuts % (Manual) Lymphocytes % (Manual) Monocytes % (Manual) Lymphocytes # (Manual) INR APTT Activated Clotting Time POC ABG pH 7.327 L POC ABG pO2 Sodium Potassium Chloride Carbon Dioxide BUN Creatinine Glucose POC Glucose 142 H 151 H Uric Acid Calcium AST ALT Total Creatine Kinase Albumin Urine WBC (Auto) Urine Creatinine Urine Chloride Crossmatch 11/25/16 11/25/16 11/26/16 21:48 22:20 00:58 WBC RBC 3.23 L Hgb 9.2 L Hct 27.9 L Plt Count 119 L Lymph % (Auto) 10.2 L [place] % (Auto) 7.6 H Eos % (Auto) Lymph # 0.8 L Seg Neutrophils % 79.9 H Seg Neuts % (Manual) Lymphocytes % (Manual) Monocytes % (Manual) Lymphocytes # (Manual) INR APTT Activated Clotting Time POC ABG pH POC ABG pO2 67 L Sodium Potassium Chloride Carbon Dioxide BUN Creatinine Glucose POC Glucose 149 H Uric Acid Calcium AST ALT Total Creatine Kinase Albumin Urine WBC (Auto) Urine Creatinine Urine Chloride Crossmatch 11/26/16 11/26/16 11/26/16 06:11 07:40 11:28 WBC RBC Hgb Hct Plt Count Lymph % (Auto) [place] % (Auto) Eos % (Auto) Lymph # Seg Neutrophils % Seg Neuts % (Manual) Lymphocytes % (Manual) Monocytes % (Manual) Lymphocytes # (Manual) INR APTT Activated Clotting Time POC ABG pH POC ABG pO2 Sodium Potassium Chloride Carbon Dioxide 21 L BUN 41 H Creatinine 2.5 H Glucose 151 H POC Glucose 144 H 168 H Uric Acid Calcium 8.1 L AST ALT Total Creatine Kinase Albumin Urine WBC (Auto) Urine Creatinine Urine Chloride Crossmatch 11/26/16 11/27/16 11/27/16 15:50 00:03 03:45 WBC RBC Hgb Hct Plt Count Lymph % (Auto) [place] % (Auto) Eos % (Auto) Lymph # Seg Neutrophils % Seg Neuts % (Manual) Lymphocytes % (Manual) Monocytes % (Manual) Lymphocytes # (Manual) INR APTT Activated Clotting Time POC ABG pH POC ABG pO2 Sodium Potassium Chloride Carbon Dioxide BUN 46 H Creatinine 2.8 H Glucose 147 H POC Glucose 153 H 183 H Uric Acid Calcium 8.1 L AST ALT Total Creatine Kinase Albumin Urine WBC (Auto) Urine Creatinine Urine Chloride Crossmatch 11/27/16 11/27/16 11/27/16 06:26 07:32 11:53 WBC RBC Hgb Hct Plt Count Lymph % (Auto) [place] % (Auto) Eos % (Auto) Lymph # Seg Neutrophils % Seg Neuts % (Manual) Lymphocytes % (Manual) Monocytes % (Manual) Lymphocytes # (Manual) INR APTT Activated Clotting Time POC ABG pH POC ABG pO2 Sodium Potassium Chloride Carbon Dioxide BUN Creatinine Glucose POC Glucose 208 H 193 H 180 H Uric Acid Calcium AST ALT Total Creatine Kinase Albumin Urine WBC (Auto) Urine Creatinine Urine Chloride Crossmatch 11/27/16 11/27/16 11/28/16 16:42 21:51 08:13 WBC RBC Hgb Hct Plt Count Lymph % (Auto) [place] % (Auto) Eos % (Auto) Lymph # Seg Neutrophils % Seg Neuts % (Manual) Lymphocytes % (Manual) Monocytes % (Manual) Lymphocytes # (Manual) INR APTT Activated Clotting Time POC ABG pH POC ABG pO2 Sodium Potassium Chloride Carbon Dioxide BUN Creatinine Glucose POC Glucose 161 H 167 H 151 H Uric Acid Calcium AST ALT Total Creatine Kinase Albumin Urine WBC (Auto) Urine Creatinine Urine Chloride Crossmatch 11/28/16 11/28/16 11/28/16 10:01 10:01 12:30 WBC RBC Hgb 8.5 L Hct 25.3 L Plt Count Lymph % (Auto) [place] % (Auto) Eos % (Auto) Lymph # Seg Neutrophils % Seg Neuts % (Manual) Lymphocytes % (Manual) Monocytes % (Manual) Lymphocytes # (Manual) INR APTT Activated Clotting Time POC ABG pH POC ABG pO2 Sodium 136 L Potassium Chloride Carbon Dioxide BUN 50 H Creatinine 2.8 H Glucose 143 H POC Glucose 154 H Uric Acid Calcium 8.1 L AST ALT Total Creatine Kinase Albumin Urine WBC (Auto) Urine Creatinine Urine Chloride Crossmatch 11/28/16 11/28/16 11/28/16 15:22 16:55 20:40 WBC RBC Hgb Hct Plt Count Lymph % (Auto) [place] % (Auto) Eos % (Auto) Lymph # Seg Neutrophils % Seg Neuts % (Manual) Lymphocytes % (Manual) Monocytes % (Manual) Lymphocytes # (Manual) INR APTT Activated Clotting Time POC ABG pH POC ABG pO2 Sodium Potassium Chloride Carbon Dioxide BUN Creatinine Glucose POC Glucose 191 H 177 H Uric Acid Calcium AST ALT Total Creatine Kinase Albumin Urine WBC (Auto) Urine Creatinine Urine Chloride Crossmatch See Detail 11/29/16 11/29/16 11/29/16 07:18 07:18 07:31 WBC RBC Hgb 9.5 L Hct 28.2 L Plt Count Lymph % (Auto) [place] % (Auto) Eos % (Auto) Lymph # Seg Neutrophils % Seg Neuts % (Manual) Lymphocytes % (Manual) Monocytes % (Manual) Lymphocytes # (Manual) INR APTT Activated Clotting Time POC ABG pH POC ABG pO2 Sodium 136 L Potassium Chloride Carbon Dioxide BUN 51 H Creatinine 2.7 H Glucose 120 H POC Glucose 127 H Uric Acid Calcium 8.1 L AST ALT Total Creatine Kinase Albumin Urine WBC (Auto) Urine Creatinine Urine Chloride Crossmatch 11/29/16 11/29/16 11/29/16 12:49 17:35 20:31 WBC RBC Hgb Hct Plt Count Lymph % (Auto) [place] % (Auto) Eos % (Auto) Lymph # Seg Neutrophils % Seg Neuts % (Manual) Lymphocytes % (Manual) Monocytes % (Manual) Lymphocytes # (Manual) INR APTT Activated Clotting Time POC ABG pH POC ABG pO2 Sodium Potassium Chloride Carbon Dioxide BUN Creatinine Glucose POC Glucose 213 H 179 H 154 H Uric Acid Calcium AST ALT Total Creatine Kinase Albumin Urine WBC (Auto) Urine Creatinine Urine Chloride Crossmatch 11/30/16 11/30/16 11/30/16 08:25 09:52 16:07 WBC RBC Hgb Hct Plt Count Lymph % (Auto) [place] % (Auto) Eos % (Auto) Lymph # Seg Neutrophils % Seg Neuts % (Manual) Lymphocytes % (Manual) Monocytes % (Manual) Lymphocytes # (Manual) INR APTT Activated Clotting Time POC ABG pH POC ABG pO2 Sodium Potassium Chloride Carbon Dioxide BUN 52 H Creatinine 3.0 H Glucose 156 H POC Glucose 127 H 216 H Uric Acid Calcium AST ALT Total Creatine Kinase Albumin Urine WBC (Auto) Urine Creatinine Urine Chloride Crossmatch 11/30/16 12/01/16 12/01/16 20:45 08:34 08:48 WBC RBC Hgb Hct Plt Count Lymph % (Auto) [place] % (Auto) Eos % (Auto) Lymph # Seg Neutrophils % Seg Neuts % (Manual) Lymphocytes % (Manual) Monocytes % (Manual) Lymphocytes # (Manual) INR APTT Activated Clotting Time POC ABG pH POC ABG pO2 Sodium 136 L Potassium Chloride Carbon Dioxide BUN 50 H Creatinine 3.0 H Glucose 124 H POC Glucose 197 H 136 H Uric Acid Calcium AST ALT Total Creatine Kinase Albumin Urine WBC (Auto) Urine Creatinine Urine Chloride Crossmatch 12/01/16 12/01/16 12/01/16 11:35 16:56 22:08 WBC RBC Hgb Hct Plt Count Lymph % (Auto) [place] % (Auto) Eos % (Auto) Lymph # Seg Neutrophils % Seg Neuts % (Manual) Lymphocytes % (Manual) Monocytes % (Manual) Lymphocytes # (Manual) INR APTT Activated Clotting Time POC ABG pH POC ABG pO2 Sodium Potassium Chloride Carbon Dioxide BUN Creatinine Glucose POC Glucose 205 H 210 H 157 H Uric Acid Calcium AST ALT Total Creatine Kinase Albumin Urine WBC (Auto) Urine Creatinine Urine Chloride Crossmatch 12/02/16 12/02/16 12/02/16 05:52 08:47 15:16 WBC RBC Hgb Hct Plt Count Lymph % (Auto) [place] % (Auto) Eos % (Auto) Lymph # Seg Neutrophils % Seg Neuts % (Manual) Lymphocytes % (Manual) Monocytes % (Manual) Lymphocytes # (Manual) INR APTT Activated Clotting Time POC ABG pH POC ABG pO2 Sodium Potassium Chloride Carbon Dioxide BUN 48 H Creatinine 2.7 H Glucose 136 H POC Glucose 134 H 226 H Uric Acid Calcium AST ALT Total Creatine Kinase Albumin Urine WBC (Auto) Urine Creatinine Urine Chloride Crossmatch 12/02/16 12/03/16 12/03/16 22:53 05:58 05:58 WBC 4.2 L RBC 3.37 L Hgb 9.7 L Hct 29.4 L Plt Count Lymph % (Auto) [place] % (Auto) Eos % (Auto) Lymph # Seg Neutrophils % Seg Neuts % (Manual) Lymphocytes % (Manual) Monocytes % (Manual) Lymphocytes # (Manual) INR APTT Activated Clotting Time POC ABG pH POC ABG pO2 Sodium Potassium Chloride Carbon Dioxide BUN 47 H Creatinine 2.7 H Glucose 142 H POC Glucose 235 H Uric Acid Calcium AST ALT Total Creatine Kinase Albumin Urine WBC (Auto) Urine Creatinine Urine Chloride Crossmatch 12/03/16 12/03/16 12/03/16 13:04 16:47 21:50 WBC RBC Hgb Hct Plt Count Lymph % (Auto) [place] % (Auto) Eos % (Auto) Lymph # Seg Neutrophils % Seg Neuts % (Manual) Lymphocytes % (Manual) Monocytes % (Manual) Lymphocytes # (Manual) INR APTT Activated Clotting Time POC ABG pH POC ABG pO2 Sodium Potassium Chloride Carbon Dioxide BUN Creatinine Glucose POC Glucose 135 H 140 H 170 H Uric Acid Calcium AST ALT Total Creatine Kinase Albumin Urine WBC (Auto) Urine Creatinine Urine Chloride Crossmatch 12/04/16 12/04/16 12/04/16 07:26 12:21 16:43 WBC RBC Hgb Hct Plt Count Lymph % (Auto) [place] % (Auto) Eos % (Auto) Lymph # Seg Neutrophils % Seg Neuts % (Manual) Lymphocytes % (Manual) Monocytes % (Manual) Lymphocytes # (Manual) INR APTT Activated Clotting Time POC ABG pH POC ABG pO2 Sodium Potassium Chloride Carbon Dioxide BUN Creatinine Glucose POC Glucose 145 H 203 H 210 H Uric Acid Calcium AST ALT Total Creatine Kinase Albumin Urine WBC (Auto) Urine Creatinine Urine Chloride Crossmatch 12/04/16 12/05/16 12/05/16 21:41 07:54 07:54 WBC RBC 3.10 L Hgb 9.0 L Hct 26.9 L Plt Count Lymph % (Auto) [place] % (Auto) 13.8 H Eos % (Auto) 5.3 H Lymph # 1.1 L Seg Neutrophils % Seg Neuts % (Manual) Lymphocytes % (Manual) Monocytes % (Manual) Lymphocytes # (Manual) INR APTT Activated Clotting Time POC ABG pH POC ABG pO2 Sodium Potassium Chloride Carbon Dioxide BUN 51 H Creatinine 3.7 H Glucose 132 H POC Glucose 211 H Uric Acid Calcium AST ALT Total Creatine Kinase Albumin Urine WBC (Auto) Urine Creatinine Urine Chloride Crossmatch 12/05/16 12/05/16 12/05/16 08:30 11:46 22:02 WBC RBC Hgb Hct Plt Count Lymph % (Auto) [place] % (Auto) Eos % (Auto) Lymph # Seg Neutrophils % Seg Neuts % (Manual) Lymphocytes % (Manual) Monocytes % (Manual) Lymphocytes # (Manual) INR APTT Activated Clotting Time POC ABG pH POC ABG pO2 Sodium Potassium Chloride Carbon Dioxide BUN Creatinine Glucose POC Glucose 140 H 225 H 165 H Uric Acid Calcium AST ALT Total Creatine Kinase Albumin Urine WBC (Auto) Urine Creatinine Urine Chloride Crossmatch 12/06/16 12/06/16 12/06/16 08:17 09:10 09:10 WBC RBC Hgb Hct Plt Count Lymph % (Auto) [place] % (Auto) Eos % (Auto) Lymph # Seg Neutrophils % Seg Neuts % (Manual) Lymphocytes % (Manual) Monocytes % (Manual) Lymphocytes # (Manual) INR APTT Activated Clotting Time POC ABG pH POC ABG pO2 Sodium Potassium Chloride 97.6 L Carbon Dioxide BUN 50 H Creatinine 3.8 H Glucose 126 H POC Glucose 166 H Uric Acid 10.0 H Calcium AST ALT Total Creatine Kinase Albumin Urine WBC (Auto) Urine Creatinine Urine Chloride Crossmatch 12/06/16 12/06/16 12/06/16 12:18 17:39 22:31 WBC RBC Hgb Hct Plt Count Lymph % (Auto) [place] % (Auto) Eos % (Auto) Lymph # Seg Neutrophils % Seg Neuts % (Manual) Lymphocytes % (Manual) Monocytes % (Manual) Lymphocytes # (Manual) INR APTT Activated Clotting Time POC ABG pH POC ABG pO2 Sodium Potassium Chloride Carbon Dioxide BUN Creatinine Glucose POC Glucose 188 H 176 H 157 H Uric Acid Calcium AST ALT Total Creatine Kinase Albumin Urine WBC (Auto) Urine Creatinine Urine Chloride Crossmatch 12/07/16 12/07/16 12/07/16 08:48 08:49 09:01 WBC RBC Hgb Hct Plt Count Lymph % (Auto) [place] % (Auto) Eos % (Auto) Lymph # Seg Neutrophils % Seg Neuts % (Manual) Lymphocytes % (Manual) Monocytes % (Manual) Lymphocytes # (Manual) INR APTT Activated Clotting Time POC ABG pH POC ABG pO2 Sodium Potassium Chloride 97.9 L Carbon Dioxide BUN 52 H Creatinine 4.2 H Glucose 105 H POC Glucose 107 H Uric Acid 10.3 H Calcium AST ALT Total Creatine Kinase 188 H Albumin Urine WBC (Auto) Urine Creatinine Urine Chloride Crossmatch 12/07/16 12/07/16 12/07/16 12:27 16:59 17:25 WBC RBC Hgb Hct Plt Count Lymph % (Auto) [place] % (Auto) Eos % (Auto) Lymph # Seg Neutrophils % Seg Neuts % (Manual) Lymphocytes % (Manual) Monocytes % (Manual) Lymphocytes # (Manual) INR APTT Activated Clotting Time POC ABG pH POC ABG pO2 Sodium Potassium Chloride Carbon Dioxide BUN Creatinine Glucose POC Glucose 163 H 124 H Uric Acid Calcium AST ALT Total Creatine Kinase Albumin Urine WBC (Auto) 9.0 H Urine Creatinine Urine Chloride Crossmatch 12/07/16 12/07/16 12/08/16 17:25 22:04 07:53 WBC RBC Hgb Hct Plt Count Lymph % (Auto) [place] % (Auto) Eos % (Auto) Lymph # Seg Neutrophils % Seg Neuts % (Manual) Lymphocytes % (Manual) Monocytes % (Manual) Lymphocytes # (Manual) INR APTT Activated Clotting Time POC ABG pH POC ABG pO2 Sodium Potassium Chloride Carbon Dioxide BUN Creatinine Glucose POC Glucose 133 H 168 H Uric Acid Calcium AST ALT Total Creatine Kinase Albumin Urine WBC (Auto) Urine Creatinine 336.8 H Urine Chloride Crossmatch 12/08/16 12/08/16 12/08/16 08:05 12:17 22:09 WBC RBC Hgb Hct Plt Count Lymph % (Auto) [place] % (Auto) Eos % (Auto) Lymph # Seg Neutrophils % Seg Neuts % (Manual) Lymphocytes % (Manual) Monocytes % (Manual) Lymphocytes # (Manual) INR APTT Activated Clotting Time POC ABG pH POC ABG pO2 Sodium Potassium Chloride Carbon Dioxide BUN 55 H Creatinine 5.0 H Glucose 142 H POC Glucose 140 H 154 H Uric Acid Calcium AST ALT Total Creatine Kinase Albumin Urine WBC (Auto) Urine Creatinine Urine Chloride Crossmatch 12/09/16 12/09/16 12/09/16 06:40 07:47 08:41 WBC RBC 3.09 L Hgb 8.8 L Hct 27.0 L Plt Count Lymph % (Auto) [place] % (Auto) Eos % (Auto) Lymph # Seg Neutrophils % Seg Neuts % (Manual) 75.0 H Lymphocytes % (Manual) 13.0 L Monocytes % (Manual) 8.0 H Lymphocytes # (Manual) 0.7 L INR APTT Activated Clotting Time POC ABG pH POC ABG pO2 Sodium Potassium Chloride Carbon Dioxide BUN 23 H Creatinine 3.1 H Glucose 108 H POC Glucose 115 H Uric Acid Calcium AST ALT Total Creatine Kinase Albumin Urine WBC (Auto) Urine Creatinine Urine Chloride Crossmatch 12/09/16 12/09/16 12/09/16 08:41 12:26 22:19 WBC RBC Hgb Hct Plt Count Lymph % (Auto) [place] % (Auto) Eos % (Auto) Lymph # Seg Neutrophils % Seg Neuts % (Manual) Lymphocytes % (Manual) Monocytes % (Manual) Lymphocytes # (Manual) INR APTT Activated Clotting Time POC ABG pH POC ABG pO2 Sodium Potassium Chloride Carbon Dioxide BUN 23 H Creatinine 3.0 H Glucose 108 H POC Glucose 140 H 139 H Uric Acid Calcium AST ALT Total Creatine Kinase Albumin Urine WBC (Auto) Urine Creatinine Urine Chloride Crossmatch 12/10/16 12/10/16 12/10/16 06:00 06:00 06:00 WBC RBC 3.47 L Hgb 9.8 L Hct Plt Count Lymph % (Auto) [place] % (Auto) Eos % (Auto) Lymph # Seg Neutrophils % Seg Neuts % (Manual) Lymphocytes % (Manual) Monocytes % (Manual) Lymphocytes # (Manual) INR APTT Activated Clotting Time POC ABG pH POC ABG pO2 Sodium Potassium Chloride Carbon Dioxide BUN Creatinine 1.9 H 1.9 H Glucose 120 H 120 H POC Glucose Uric Acid Calcium AST ALT Total Creatine Kinase Albumin 5.1 H Urine WBC (Auto) Urine Creatinine Urine Chloride Crossmatch 12/10/16 12/10/16 12/10/16 08:34 16:38 21:00 WBC RBC Hgb Hct Plt Count Lymph % (Auto) [place] % (Auto) Eos % (Auto) Lymph # Seg Neutrophils % Seg Neuts % (Manual) Lymphocytes % (Manual) Monocytes % (Manual) Lymphocytes # (Manual) INR APTT Activated Clotting Time POC ABG pH POC ABG pO2 Sodium Potassium Chloride Carbon Dioxide BUN Creatinine Glucose POC Glucose 137 H 109 H 155 H Uric Acid Calcium AST ALT Total Creatine Kinase Albumin Urine WBC (Auto) Urine Creatinine Urine Chloride Crossmatch 12/11/16 12/11/16 12/11/16 06:02 12:33 17:36 WBC RBC Hgb Hct Plt Count Lymph % (Auto) [place] % (Auto) Eos % (Auto) Lymph # Seg Neutrophils % Seg Neuts % (Manual) Lymphocytes % (Manual) Monocytes % (Manual) Lymphocytes # (Manual) INR APTT Activated Clotting Time POC ABG pH POC ABG pO2 Sodium Potassium Chloride 97.0 L Carbon Dioxide 31 H BUN Creatinine 2.3 H Glucose 133 H POC Glucose 131 H 145 H Uric Acid Calcium AST ALT Total Creatine Kinase Albumin Urine WBC (Auto) Urine Creatinine Urine Chloride Crossmatch 12/11/16 12/12/16 12/12/16 21:50 05:58 07:46 WBC RBC Hgb Hct Plt Count Lymph % (Auto) [place] % (Auto) Eos % (Auto) Lymph # Seg Neutrophils % Seg Neuts % (Manual) Lymphocytes % (Manual) Monocytes % (Manual) Lymphocytes # (Manual) INR APTT Activated Clotting Time POC ABG pH POC ABG pO2 Sodium Potassium Chloride Carbon Dioxide BUN Creatinine 3.5 H D Glucose 127 H POC Glucose 158 H 148 H Uric Acid Calcium AST ALT Total Creatine Kinase Albumin Urine WBC (Auto) Urine Creatinine Urine Chloride Crossmatch 12/12/16 12/12/16 12/12/16 11:42 15:55 21:56 WBC RBC Hgb Hct Plt Count Lymph % (Auto) [place] % (Auto) Eos % (Auto) Lymph # Seg Neutrophils % Seg Neuts % (Manual) Lymphocytes % (Manual) Monocytes % (Manual) Lymphocytes # (Manual) INR APTT Activated Clotting Time POC ABG pH POC ABG pO2 Sodium Potassium Chloride Carbon Dioxide BUN Creatinine Glucose POC Glucose 189 H 167 H 160 H Uric Acid Calcium AST ALT Total Creatine Kinase Albumin Urine WBC (Auto) Urine Creatinine Urine Chloride Crossmatch 12/13/16 12/13/16 12/13/16 04:31 04:31 08:03 WBC RBC 3.29 L Hgb 9.4 L Hct 28.9 L Plt Count Lymph % (Auto) [place] % (Auto) 9.2 H Eos % (Auto) Lymph # 1.1 L Seg Neutrophils % Seg Neuts % (Manual) Lymphocytes % (Manual) Monocytes % (Manual) Lymphocytes # (Manual) INR APTT Activated Clotting Time POC ABG pH POC ABG pO2 Sodium Potassium Chloride Carbon Dioxide BUN Creatinine 4.8 H Glucose 119 H POC Glucose 128 H Uric Acid Calcium AST ALT Total Creatine Kinase Albumin Urine WBC (Auto) Urine Creatinine Urine Chloride Crossmatch 12/13/16 12/13/16 12/14/16 17:16 21:37 05:57 WBC RBC 3.40 L Hgb 9.7 L Hct 30.0 L Plt Count Lymph % (Auto) [place] % (Auto) 11.2 H Eos % (Auto) Lymph # Seg Neutrophils % Seg Neuts % (Manual) Lymphocytes % (Manual) Monocytes % (Manual) Lymphocytes # (Manual) INR APTT Activated Clotting Time POC ABG pH POC ABG pO2 Sodium Potassium Chloride Carbon Dioxide BUN Creatinine Glucose POC Glucose 122 H 158 H Uric Acid Calcium AST ALT Total Creatine Kinase Albumin Urine WBC (Auto) Urine Creatinine Urine Chloride Crossmatch 12/14/16 12/14/16 12/14/16 05:57 08:29 12:53 WBC RBC Hgb Hct Plt Count Lymph % (Auto) [place] % (Auto) Eos % (Auto) Lymph # Seg Neutrophils % Seg Neuts % (Manual) Lymphocytes % (Manual) Monocytes % (Manual) Lymphocytes # (Manual) INR APTT Activated Clotting Time POC ABG pH POC ABG pO2 Sodium Potassium Chloride Carbon Dioxide BUN Creatinine 2.8 H Glucose POC Glucose 124 H 181 H Uric Acid Calcium AST ALT Total Creatine Kinase Albumin Urine WBC (Auto) Urine Creatinine Urine Chloride Crossmatch 12/14/16 12/14/16 12/15/16 17:50 22:59 05:30 WBC RBC Hgb Hct Plt Count Lymph % (Auto) [place] % (Auto) Eos % (Auto) Lymph # Seg Neutrophils % Seg Neuts % (Manual) Lymphocytes % (Manual) Monocytes % (Manual) Lymphocytes # (Manual) INR APTT Activated Clotting Time POC ABG pH POC ABG pO2 Sodium Potassium Chloride Carbon Dioxide BUN Creatinine 2.8 H Glucose 105 H POC Glucose 121 H 108 H Uric Acid Calcium AST ALT Total Creatine Kinase Albumin Urine WBC (Auto) Urine Creatinine Urine Chloride Crossmatch 12/15/16 12/15/16 12/15/16 08:06 08:49 16:50 WBC RBC 3.09 L Hgb 8.9 L Hct 27.6 L Plt Count Lymph % (Auto) [place] % (Auto) 12.4 H Eos % (Auto) Lymph # 1.0 L Seg Neutrophils % Seg Neuts % (Manual) Lymphocytes % (Manual) Monocytes % (Manual) Lymphocytes # (Manual) INR APTT Activated Clotting Time POC ABG pH 7.456 H POC ABG pO2 61 L Sodium Potassium Chloride Carbon Dioxide BUN Creatinine Glucose POC Glucose 156 H Uric Acid Calcium AST ALT Total Creatine Kinase Albumin Urine WBC (Auto) Urine Creatinine Urine Chloride Crossmatch 12/15/16 12/15/16 12/16/16 17:36 21:49 06:16 WBC RBC 2.91 L Hgb 8.3 L Hct 25.7 L Plt Count Lymph % (Auto) [place] % (Auto) 15.2 H Eos % (Auto) Lymph # 0.9 L Seg Neutrophils % Seg Neuts % (Manual) Lymphocytes % (Manual) Monocytes % (Manual) Lymphocytes # (Manual) INR APTT Activated Clotting Time POC ABG pH POC ABG pO2 Sodium Potassium Chloride Carbon Dioxide BUN Creatinine Glucose POC Glucose 177 H 203 H Uric Acid Calcium AST ALT Total Creatine Kinase Albumin Urine WBC (Auto) Urine Creatinine Urine Chloride Crossmatch 12/16/16 12/16/16 12/16/16 06:16 12:35 16:34 WBC RBC Hgb Hct Plt Count Lymph % (Auto) [place] % (Auto) Eos % (Auto) Lymph # Seg Neutrophils % Seg Neuts % (Manual) Lymphocytes % (Manual) Monocytes % (Manual) Lymphocytes # (Manual) INR APTT Activated Clotting Time POC ABG pH POC ABG pO2 Sodium Potassium Chloride Carbon Dioxide 31 H BUN Creatinine 2.1 H Glucose 175 H POC Glucose 206 H 187 H Uric Acid Calcium AST ALT Total Creatine Kinase Albumin Urine WBC (Auto) Urine Creatinine Urine Chloride Crossmatch 12/16/16 12/16/16 12/17/16 21:04 21:23 07:52 WBC 4.4 L RBC 3.00 L Hgb 8.7 L Hct 26.6 L Plt Count Lymph % (Auto) [place] % (Auto) 13.5 H Eos % (Auto) Lymph # 1.1 L Seg Neutrophils % Seg Neuts % (Manual) Lymphocytes % (Manual) Monocytes % (Manual) Lymphocytes # (Manual) INR APTT Activated Clotting Time POC ABG pH POC ABG pO2 Sodium Potassium Chloride Carbon Dioxide BUN Creatinine Glucose POC Glucose 171 H 144 H Uric Acid Calcium AST ALT Total Creatine Kinase Albumin Urine WBC (Auto) Urine Creatinine Urine Chloride Crossmatch 12/17/16 12/17/16 12/18/16 07:52 16:15 02:25 WBC RBC Hgb Hct Plt Count Lymph % (Auto) [place] % (Auto) Eos % (Auto) Lymph # Seg Neutrophils % Seg Neuts % (Manual) Lymphocytes % (Manual) Monocytes % (Manual) Lymphocytes # (Manual) INR APTT Activated Clotting Time POC ABG pH POC ABG pO2 Sodium Potassium Chloride Carbon Dioxide BUN Creatinine 3.1 H Glucose 111 H POC Glucose 133 H 174 H Uric Acid Calcium AST ALT Total Creatine Kinase Albumin Urine WBC (Auto) Urine Creatinine Urine Chloride Crossmatch 12/18/16 12/18/16 12/18/16 07:30 07:30 07:56 WBC RBC 3.36 L Hgb 9.7 L Hct 29.3 L Plt Count Lymph % (Auto) [place] % (Auto) 14.6 H Eos % (Auto) Lymph # Seg Neutrophils % Seg Neuts % (Manual) Lymphocytes % (Manual) Monocytes % (Manual) Lymphocytes # (Manual) INR APTT Activated Clotting Time POC ABG pH POC ABG pO2 Sodium Potassium Chloride Carbon Dioxide BUN Creatinine 1.7 H Glucose 155 H POC Glucose 157 H Uric Acid Calcium AST ALT Total Creatine Kinase Albumin Urine WBC (Auto) Urine Creatinine Urine Chloride Crossmatch 12/18/16 12/18/16 12/18/16 12:00 16:35 21:43 WBC RBC Hgb Hct Plt Count Lymph % (Auto) [place] % (Auto) Eos % (Auto) Lymph # Seg Neutrophils % Seg Neuts % (Manual) Lymphocytes % (Manual) Monocytes % (Manual) Lymphocytes # (Manual) INR APTT Activated Clotting Time POC ABG pH POC ABG pO2 Sodium Potassium Chloride Carbon Dioxide BUN Creatinine Glucose POC Glucose 199 H 286 H 126 H Uric Acid Calcium AST ALT Total Creatine Kinase Albumin Urine WBC (Auto) Urine Creatinine Urine Chloride Crossmatch 12/19/16 12/19/16 12/19/16 06:34 06:34 07:56 WBC RBC 3.37 L Hgb 9.5 L Hct 29.1 L Plt Count Lymph % (Auto) 38.8 H [place] % (Auto) 11.5 H Eos % (Auto) Lymph # Seg Neutrophils % Seg Neuts % (Manual) Lymphocytes % (Manual) Monocytes % (Manual) Lymphocytes # (Manual) INR APTT Activated Clotting Time POC ABG pH POC ABG pO2 Sodium Potassium 3.4 L Chloride Carbon Dioxide BUN Creatinine 2.1 H Glucose 117 H POC Glucose 124 H Uric Acid Calcium AST ALT Total Creatine Kinase Albumin Urine WBC (Auto) Urine Creatinine Urine Chloride Crossmatch 12/19/16 12/19/16 11:46 16:40 WBC RBC Hgb Hct Plt Count Lymph % (Auto) [place] % (Auto) Eos % (Auto) Lymph # Seg Neutrophils % Seg Neuts % (Manual) Lymphocytes % (Manual) Monocytes % (Manual) Lymphocytes # (Manual) INR APTT Activated Clotting Time POC ABG pH POC ABG pO2 Sodium Potassium Chloride Carbon Dioxide BUN Creatinine Glucose POC Glucose 152 H 295 H Uric Acid Calcium AST ALT Total Creatine Kinase Albumin Urine WBC (Auto) Urine Creatinine Urine Chloride Crossmatch
[2016-12-19] MEDS: ZOFRAN ODT PO PRN (23:14)
--- NOTE | 2016-12-20 09:25 | Progress Note ---
Assessment and Plan - Patient Problems (1) Acute kidney injury superimposed on CKD Current Visit: Yes Status: Acute Plan to address problem: nonoliguric. Monitor off dialysis. Discussed with pt and . Nutrition support. S/P PCI for CAD, PRBC for blood loss anemia. Adjust meds per renal function.K-3.5-- monitor (2) Anemia Current Visit: Yes Status: Acute Qualifiers: Anemia type: A Iron deficiency anemia type: I Vitamin B12 deficiency anemia type: V Folate deficiency anemia type: F Bone marrow failure anemia type: B Hemolytic anemia type: H Other causes of anemia: O Chronic kidney disease stage: C (3) CAD (coronary artery disease) of artery bypass graft Current Visit: Yes Status: Acute Qualifiers: [place] vs. transplanted heart: N Associated angina: A Subjective Date of service: 12/20/16 Principal diagnosis: Acute Encephalopathy; PATRIA on Dialysis; CAD s/p PCI and stenting Interval history: more alert, oriented to place and person. Denies CP or SOB Objective - Vital Signs Vital signs: Vital Signs - 12hr 12/20/16 12/20/16 12/20/16 00:00 02:00 04:00 Temperature 98.3 F 98.5 F Pulse Rate 68 Pulse Rate [ 72 Right Brachial] Pulse Rate [ 68 Right Radial] Respiratory 18 18 Rate Blood Pressure 108/56 119/62 [Right Arm] O2 Sat by Pulse 97 98 Oximetry - General Appearance General appearance: well-developed EENT: mucous membranes moist Neck: no JVD Respiratory: Present: Clear to Ascultation Cardiology: regular Gastrointestinal: normoactive bowel sounds Neurologic: alert and oriented x3 Musculoskeletal: other (no edema) Psychiatric: mood/affect appropriate, cooperative - Lab 12/19/16 06:34 12/20/16 10:53 Most recent lab results Calcium 9.5 mg/dL (8.4-10.2) 12/19/16 06:34 Urine Creatinine 336.8 mg/dL (0.1-20.0) H 12/07/16 17:25 Urine Sodium 13 mEq/L 12/07/16 17:25
[2016-12-20] MEDS: COREG PO SCH ×3 (09:26→22:02)
[2016-12-20] MEDS: ECOTRIN PO SCH ×2 (09:26→11:33)
[2016-12-20] MEDS: EFFEXOR XR PO SCH ×2 (09:27→11:33)
[2016-12-20] MEDS: PROCARDIA XL PO SCH ×2 (09:28→11:35)
[2016-12-20] MEDS: PLAVIX PO SCH ×2 (09:28→11:35)
[2016-12-20] MEDS: IMDUR PO SCH ×2 (09:28→11:33)
[2016-12-20] MEDS: HEPARIN SUB-Q SCH ×3 (09:28→22:03)
[2016-12-20] MEDS: PROTONIX PO SCH ×2 (09:29→11:36)
[2016-12-20 11:50] LABS: BUN/Creatinine Ratio 7.66; Calcium 9.2 mg/dL (8.4-10.2); Potassium 3.5 mmol/L (3.6-5.0)
--- NOTE | 2016-12-20 12:25 | Progress Note ---
Assessment and Plan Altered mental status -resolved Head CT shows no acute intracranial process Volume overload Hyperkalemia -resolved Coronary artery disease with prior CABG Right and LHC findings: moderate to severe elevated left and right heart filling pressures; moderate to severe pulmonary HTN 3 vessel disease ESTRADA to LAD patent SVG x 2 occluded (Diag and OM) subtotal occlusion of proximal segment of SVG to RCA treated with a drug eluting stent EF 40-45% Acute renal failure secondary to contrast nephropathy initiated on dialysis Acute drop in H&H s/p blood transfusion Ischemic Cardiomyopathy Hypertension Deconditioning Continue medical therapy for coronary artery disease, including dual oral antiplatelet therapy for recent coronary stent. Stable cardiac cross. Subjective Date of service: 12/20/16 Principal diagnosis: Acute Encephalopathy; PATRIA on Dialysis; CAD s/p PCI and stenting Interval history: No interval changes. Awaits discharge, as soon as outpatient dialysis is established. Objective Vital Signs Temp Pulse Pulse Pulse Pulse Resp BP 12/20/16 11:33 73 138/63 12/20/16 11:32 73 138/63 12/20/16 08:34 98.4 F 73 20 12/20/16 04:00 98.5 F 68 18 12/20/16 02:00 68 12/20/16 00:00 98.3 F 72 18 12/19/16 20:00 98.3 F 72 18 12/19/16 15:10 99.1 F 74 74 18 BP BP Pulse Ox 12/20/16 11:33 12/20/16 11:32 12/20/16 08:34 138/63 95 12/20/16 04:00 119/62 98 12/20/16 02:00 12/20/16 00:00 108/56 97 12/19/16 20:00 115/57 98 12/19/16 15:10 129/60 129/60 - Physical Examination General: No Apparent Distress Neck: Positive: trachea midline Cardiac: Positive: Reg Rate and Rhythm Neuro: Positive: Grossly Intact - Labs and Meds Comprehensive Metabolic Panel 12/20/16 Range/Units 10:53 Sodium 140 (137-145) mmol/L Potassium 3.5 L (3.6-5.0) mmol/L Chloride 99.0 (98-107) mmol/L Carbon Dioxide 25 (22-30) mmol/L BUN 23 H (7-17) mg/dL Creatinine 3.0 H (0.7-1.2) mg/dL Glucose 204 H (65-100) mg/dL Calcium 9.2 (8.4-10.2) mg/dL
--- NOTE | 2016-12-20 17:13 | Progress Note ---
Assessment and Plan Assessment and plan: -Ischemic cardiomyopathy status post PCI of SVG TO RCA: Cardiology following. Continue dual antiplatelet therapy -Abdominal pain: Resolved. Likely constipation, lactulose prn and also fleet enema. no ascities noted as previously suspected, GI Consulted -Acute kidney injury on chronic kidney disease stage III likely contrast nephropathy. Creatinine was 3. Nephrology following. PER Nephrology no ACEI OR ARBS on DISCHARGE. Nephrology wants to withheld the dialysis after monitoring BMP tomorrow morning. -Acute toxic Metabolic encephalopathy- Resolved CT of the brain negative. -Acute blood loss anemia- S/P 2 units packed red blood cell transfusion. Hemoglobin is stable. -Hypertension- Stable -Anasarca-improved. Patient was initially treated with IV Lasix and albumin this has been since discontinued. Expect improvement with dialysis. -Moderate to severe pulmonary hypertension- cardiology following. -DVT and GI prophylaxis -Plan of care discussed in detail with the patient. Disposition: - will discharge tomorrow morning after checking BMP - patient will be of dialysis and will follow with Dr Reyes as an O/P. History Interval history: Patient was seen and evaluated this morning, she is stable, she wants to go home. Hospitalist Physical - Physical exam Narrative exam: Not in cardiopulmonary distress. The patient appeared well nourished and normally developed. Vital signs as documented. Head exam is unremarkable. No scleral icterus . Neck is without jugular venous distension, thyromegaly, or carotid bruits. Lungs are clear to auscultation. Cardiac exam reveals regular rate and Rhythm. Abdominal exam reveals normal bowel sounds, no masses, no organomegaly. Extremities are nonedematous and both femoral and pedal pulses are normal. FILL TECHNICIAN: Alert and oriented 3. No focal weakness. - Constitutional Vitals: Temp Pulse Resp BP Pulse Ox 98.4 F 73 20 138/63 95 12/20/16 08:34 12/20/16 11:33 12/20/16 08:34 12/20/16 11:33 12/20/16 08:34 General appearance: Present: no acute distress Results - Labs CBC & Chem 7: 12/19/16 06:34 12/20/16 10:53 Labs: Laboratory Last Values WBC 4.8 K/mm3 (4.5-11.0) 12/19/16 06:34 RBC 3.37 M/mm3 (3.65-5.03) L 12/19/16 06:34 Hgb 9.5 gm/dl (10.1-14.3) L 12/19/16 06:34 Hct 29.1 % (30.3-42.9) L 12/19/16 06:34 MCV 86 fl (79-97) 12/19/16 06:34 MCH 28 pg (28-32) 12/19/16 06:34 MCHC 33 % (30-34) 12/19/16 06:34 RDW 14.5 % (13.2-15.2) 12/19/16 06:34 Plt Count 209 K/mm3 (140-440) 12/19/16 06:34 Lymph % (Auto) 38.8 % (13.4-35.0) H 12/19/16 06:34 [place] % (Auto) 11.5 % (0.0-7.3) H 12/19/16 06:34 Eos % (Auto) 3.5 % (0.0-4.3) 12/19/16 06:34 Baso % (Auto) 0.8 % (0.0-1.8) 12/19/16 06:34 Lymph # 1.9 K/mm3 (1.2-5.4) 12/19/16 06:34 [place] # 0.6 K/mm3 (0.0-0.8) 12/19/16 06:34 Eos # 0.2 K/mm3 (0.0-0.4) 12/19/16 06:34 Baso # 0.0 K/mm3 (0.0-0.1) 12/19/16 06:34 Add Manual Diff Complete 12/09/16 08:41 Total Counted 100 12/09/16 08:41 Seg Neutrophils % 45.4 % (40.0-70.0) 12/19/16 06:34 Seg Neuts % (Manual) 75.0 % (40.0-70.0) H 12/09/16 08:41 Band Neutrophils % 0 % 12/09/16 08:41 Lymphocytes % (Manual) 13.0 % (13.4-35.0) L 12/09/16 08:41 Reactive Lymphs % (Man) 0 % 12/09/16 08:41 Monocytes % (Manual) 8.0 % (0.0-7.3) H 12/09/16 08:41 Eosinophils % (Manual) 3.0 % (0.0-4.3) 12/09/16 08:41 Basophils % (Manual) 1.0 % (0.0-1.8) 12/09/16 08:41 Metamyelocytes % 0 % 12/09/16 08:41 Myelocytes % 0 % 12/09/16 08:41 Promyelocytes % 0 % 12/09/16 08:41 Blast Cells % 0 % 12/09/16 08:41 Nucleated RBC % Not Reportable 12/09/16 08:41 Seg Neutrophils # 2.2 K/mm3 (1.8-7.7) 12/19/16 06:34 Seg Neutrophils # Man 3.8 K/mm3 (1.8-7.7) 12/09/16 08:41 Band Neutrophils # 0.0 K/mm3 12/09/16 08:41 Lymphocytes # (Manual) 0.7 K/mm3 (1.2-5.4) L 12/09/16 08:41 Abs React Lymphs (Man) 0.0 K/mm3 12/09/16 08:41 Monocytes # (Manual) 0.4 K/mm3 (0.0-0.8) 12/09/16 08:41 Eosinophils # (Manual) 0.2 K/mm3 (0.0-0.4) 12/09/16 08:41 Basophils # (Manual) 0.1 K/mm3 (0.0-0.1) 12/09/16 08:41 Metamyelocytes # 0.0 K/mm3 12/09/16 08:41 Myelocytes # 0.0 K/mm3 12/09/16 08:41 Promyelocytes # 0.0 K/mm3 12/09/16 08:41 Blast Cells # 0.0 K/mm3 12/09/16 08:41 WBC Morphology Not Reportable 12/09/16 08:41 Hypersegmented Neuts Not Reportable 12/09/16 08:41 Hyposegmented Neuts Not Reportable 12/09/16 08:41 Hypogranular Neuts Not Reportable 12/09/16 08:41 Smudge Cells Not Reportable 12/09/16 08:41 Toxic Granulation Not Reportable 12/09/16 08:41 Toxic Vacuolation Not Reportable 12/09/16 08:41 Dohle Bodies Not Reportable 12/09/16 08:41 Pelger-Huet Anomaly Not Reportable 12/09/16 08:41 Rich Rods Not Reportable 12/09/16 08:41 Platelet Estimate Appears normal 12/09/16 08:41 Clumped Platelets Not Reportable 12/09/16 08:41 Plt Clumps, EDTA Not Reportable 12/09/16 08:41 Large Platelets Not Reportable 12/09/16 08:41 Giant Platelets Not Reportable 12/09/16 08:41 Platelet Satelliting Not Reportable 12/09/16 08:41 Plt Morphology Comment Not Reportable 12/09/16 08:41 RBC Morphology Not Reportable 12/09/16 08:41 Dimorphic RBCs Not Reportable 12/09/16 08:41 Polychromasia Not Reportable 12/09/16 08:41 Hypochromasia Not Reportable 12/09/16 08:41 Poikilocytosis Not Reportable 12/09/16 08:41 Anisocytosis 1+ 12/09/16 08:41 Microcytosis Not Reportable 12/09/16 08:41 Macrocytosis Not Reportable 12/09/16 08:41 Spherocytes Not Reportable 12/09/16 08:41 Pappenheimer Bodies Not Reportable 12/09/16 08:41 Sickle Cells Not Reportable 12/09/16 08:41 Target Cells Not Reportable 12/09/16 08:41 Tear Drop Cells Few 12/09/16 08:41 Ovalocytes Few 12/09/16 08:41 Helmet Cells Not Reportable 12/09/16 08:41 Beltran-Noble Bodies Not Reportable 12/09/16 08:41 Penrose Rings Not Reportable 12/09/16 08:41 Dona Cells Not Reportable 12/09/16 08:41 Bite Cells Not Reportable 12/09/16 08:41 Crenated Cell Not Reportable 12/09/16 08:41 Elliptocytes Not Reportable 12/09/16 08:41 Acanthocytes (Spur) Not Reportable 12/09/16 08:41 Rouleaux Not Reportable 12/09/16 08:41 Hemoglobin C Crystals Not Reportable 12/09/16 08:41 Schistocytes Not Reportable 12/09/16 08:41 Malaria parasites Not Reportable 12/09/16 08:41 Gabe Bodies Not Reportable 12/09/16 08:41 Hem Pathologist Commnt No 12/09/16 08:41 PT 14.5 Sec. (12.2-14.9) 11/22/16 07:20 INR 1.14 (0.87-1.13) H 11/22/16 07:20 APTT 37.7 Sec. (24.2-36.6) H 11/22/16 07:37 Activated Clotting Time 175 (74-137) H 11/22/16 14:25 POC ABG pH 7.456 (7.35-7.45) H 12/15/16 16:50 POC ABG pCO2 41.3 (35-45) 12/15/16 16:50 POC ABG pO2 61 (80-105) L 12/15/16 16:50 POC ABG HCO3 29.0 12/15/16 16:50 POC ABG Total CO2 30 12/15/16 16:50 POC ABG O2 Sat 92 12/15/16 16:50 POC ABG Base Excess 5 12/15/16 16:50 FiO2 21 % 12/15/16 16:50 Sodium 140 mmol/L (137-145) 12/20/16 10:53 Potassium 3.5 mmol/L (3.6-5.0) L 12/20/16 10:53 Chloride 99.0 mmol/L (98-107) 12/20/16 10:53 Carbon Dioxide 25 mmol/L (22-30) 12/20/16 10:53 Anion Gap 20 mmol/L 12/20/16 10:53 BUN 23 mg/dL (7-17) H 12/20/16 10:53 Creatinine 3.0 mg/dL (0.7-1.2) H 12/20/16 10:53 Estimated GFR 19 ml/min 12/20/16 10:53 BUN/Creatinine Ratio 7.66 % 12/20/16 10:53 Glucose 204 mg/dL (65-100) H 12/20/16 10:53 POC Glucose 227 (70-105) H 12/20/16 12:24 Osmolality 304 Mosm/kg 12/07/16 10:49 Lactic Acid 1.00 mmol/L (0.7-2.0) 11/26/16 06:11 Uric Acid 10.3 mg/dL (3.5-7.6) H 12/07/16 08:48 Calcium 9.2 mg/dL (8.4-10.2) 12/20/16 10:53 Total Bilirubin 1.10 mg/dL (0.1-1.2) 12/10/16 06:00 AST 25 units/L (5-40) 12/10/16 06:00 ALT 25 units/L (7-56) 12/10/16 06:00 Alkaline Phosphatase 84 units/L (35-129) 12/10/16 06:00 Total Creatine Kinase 188 units/L (30-135) H 12/07/16 08:48 CK-MB (CK-2) 2.7 ng/mL (0.0-4.0) 11/23/16 06:49 CK-MB (CK-2) Rel Index 1.4 (0-4) 11/23/16 06:49 Troponin T 0.012 ng/mL (0.00-0.029) 11/23/16 06:49 C-Reactive Protein 1.20 mg/dL (0.00-1.30) 11/25/16 13:02 Serum Total Protein 6.7 g/dL (6.1-8.1) 12/07/16 10:49 Total Protein 7.9 g/dL (6.3-8.2) 12/10/16 06:00 Albumin 5.1 g/dL (3.9-5) H 12/10/16 06:00 Albumin/Globulin Ratio 1.8 % 12/10/16 06:00 Knffs-7-Mwhtlzwvx 0.3 g/dL (0.2-0.3) 12/07/16 10:49 Npaxb-6-Zxoxyynud 0.7 g/dL (0.5-0.9) 12/07/16 10:49 Beta Globulins 0.2 g/dL (0.2-0.5) 12/07/16 10:49 Gamma Globulins 0.8 g/dL (0.8-1.7) 12/07/16 10:49 Abnorm Protein Band 1 see below 12/07/16 10:49 PEP Interpretation see below 12/07/16 10:49 TSH 0.610 mlU/mL (0.270-4.200) 11/25/16 20:44 Urine Color Yellow (Yellow) 12/07/16 17:25 Urine Turbidity Slightly-cloudy (Clear) 12/07/16 17:25 Urine pH 5.0 (5.0-7.0) 12/07/16 17:25 Ur Specific [place] 1.018 (1.003-1.030) 12/07/16 17:25 Urine Protein 100 mg/dl mg/dL (Negative) 12/07/16 17:25 Urine Glucose (UA) Neg mg/dL (Negative) 12/07/16 17:25 Urine Ketones Neg mg/dL (Negative) 12/07/16 17:25 Urine Blood Neg (Negative) 12/07/16 17:25 Urine Nitrite Neg (Negative) 12/07/16 17:25 Urine Bilirubin Neg (Negative) 12/07/16 17:25 Urine Urobilinogen < 2.0 mg/dL (<2.0) 12/07/16 17:25 Ur Leukocyte Esterase Neg (Negative) 12/07/16 17:25 Urine WBC (Auto) 9.0 /HPF (0.0-6.0) H 12/07/16 17:25 Urine RBC (Auto) 1.0 /HPF (0.0-6.0) 12/07/16 17:25 U Epithel Cells (Auto) 5.0 /HPF (0-13.0) 12/07/16 17:25 Urine Bacteria (Auto) 2+ /HPF (Negative) 12/04/16 14:30 Amorphous Crystals Few 12/07/16 17:25 Hyaline Casts 22 /LPF 12/07/16 17:25 Urine Eosinophils None seen (None Seen) 12/04/16 14:30 Urine Creatinine 336.8 mg/dL (0.1-20.0) H 12/07/16 17:25 Urine Sodium 13 mEq/L 12/07/16 17:25 Urine Potassium 70.20 mEq/L 11/24/16 21:57 Urine Chloride 31.3 mEq/L (110-250) L 11/24/16 21:57 BENJI Screen Negative (Negative) 12/07/16 10:49 Hepatitis A IgM Ab Non-reactive (NonReactive) 12/16/16 15:12 Hep Bs Antigen Non-reactive (Negative) 12/16/16 15:12 Hep B Core IgM Ab Non-reactive (NonReactive) 12/16/16 15:12 Hepatitis C Antibody Non-reactive (NonReactive) 12/16/16 15:12 Blood Type O POSITIVE 11/28/16 15:22 Antibody Screen TNR 11/28/16 15:22 HUDSON Antibody Screen Negative 11/28/16 15:22 Crossmatch See Detail 11/28/16 15:22
--- NOTE | 2016-12-20 19:01 | Progress Note ---
Assessment and Plan Patient alert, awake.Patients condition same..No complaint of chest pain or shortness of breath..Patient resting on room air and O2 saturation 96%. - Patient Problems (1) PATRIA (acute kidney injury) Current Visit: Yes Status: Acute Plan to address problem: Management as per nephrology. (2) Acute encephalopathy Current Visit: Yes Status: Acute Plan to address problem: Patient more alert. Encephalopathy improving. (3) Anemia Current Visit: Yes Status: Acute Qualifiers: Anemia type: A Iron deficiency anemia type: I Vitamin B12 deficiency anemia type: V Folate deficiency anemia type: F Bone marrow failure anemia type: B Hemolytic anemia type: H Other causes of anemia: O Chronic kidney disease stage: C Plan to address problem: Management as per primary care. (4) CAD (coronary artery disease) of artery bypass graft Current Visit: Yes Status: Acute Qualifiers: [place] vs. transplanted heart: N Associated angina: A Plan to address problem: Management as per cardiology. (5) Obesity (BMI 30-39.9) Current Visit: Yes Status: Acute Plan to address problem: Weight reduction diet. (6) Sleep apnea Current Visit: Yes Status: Acute Qualifiers: Sleep apnea type: S Plan to address problem: Possible sleep apnea. BIPAP standby in the room. Recommend sleep study as out patient. Subjective Date of service: 12/20/16 Principal diagnosis: Acute Encephalopathy; PATRIA on Dialysis; CAD s/p PCI and stenting Interval history: Patient alert, awake.Patients condition same.No complaint of chest pain or shortness of breath..Patient resting on room air and O2 saturation 96%. Objective Vital Signs - 12hr 12/20/16 12/20/16 12/20/16 08:34 11:32 11:33 Temperature 98.4 F Pulse Rate 73 73 Pulse Rate [ 73 Right Radial] Respiratory 20 Rate Blood Pressure 138/63 138/63 Blood Pressure 138/63 [Right Arm] O2 Sat by Pulse 95 Oximetry 12/20/16 16:33 Temperature 98.9 F Pulse Rate Pulse Rate [ 77 Right Radial] Respiratory 20 Rate Blood Pressure Blood Pressure 138/67 [Right Arm] O2 Sat by Pulse 96 Oximetry Constitutional: no acute distress, asleep Eyes: non-icteric ENT: oropharynx moist Neck: supple, no lymphadenopathy Effort: normal Ascultation: Bilateral: diminished breath sounds, rales (scant in posterior bases) Cardiovascular: regular rate and rhythm Gastrointestinal: normoactive bowel sounds, soft, non-tender, non-distended Integumentary: normal Extremities: no cyanosis, no edema, pulses normal, no ischemia or petechiae Neurologic: normal mental status, non-focal exam, pupils equal and round, motor strength normal and Psychiatric: depressed CBC and BMP: 12/19/16 06:34 12/20/16 10:53 ABG, PT/INR, D-dimer: ABG POC ABG pH 7.456 (7.35-7.45) H 12/15/16 16:50 POC ABG pCO2 41.3 (35-45) 12/15/16 16:50 POC ABG pO2 61 (80-105) L 12/15/16 16:50 POC ABG HCO3 29.0 12/15/16 16:50 POC ABG Total CO2 30 12/15/16 16:50 POC ABG O2 Sat 92 12/15/16 16:50 PT/INR, D-dimer PT 14.5 Sec. (12.2-14.9) 11/22/16 07:20 INR 1.14 (0.87-1.13) H 11/22/16 07:20 Abnormal lab findings: Abnormal Labs 11/22/16 11/22/16 11/22/16 07:20 07:20 07:20 WBC RBC 3.52 L Hgb Hct Plt Count Lymph % (Auto) [place] % (Auto) 11.5 H Eos % (Auto) Lymph # Seg Neutrophils % Seg Neuts % (Manual) Lymphocytes % (Manual) Monocytes % (Manual) Lymphocytes # (Manual) INR 1.14 H APTT Activated Clotting Time POC ABG pH POC ABG pO2 Sodium Potassium Chloride 108.0 H Carbon Dioxide BUN 25 H Creatinine 1.4 H Glucose POC Glucose Uric Acid Calcium AST ALT Total Creatine Kinase Albumin Urine WBC (Auto) Urine Creatinine Urine Chloride Crossmatch 11/22/16 11/22/16 11/22/16 07:37 10:46 13:13 WBC RBC Hgb Hct Plt Count Lymph % (Auto) [place] % (Auto) Eos % (Auto) Lymph # Seg Neutrophils % Seg Neuts % (Manual) Lymphocytes % (Manual) Monocytes % (Manual) Lymphocytes # (Manual) INR APTT 37.7 H Activated Clotting Time 327 H 202 H POC ABG pH POC ABG pO2 Sodium Potassium Chloride Carbon Dioxide BUN Creatinine Glucose POC Glucose Uric Acid Calcium AST ALT Total Creatine Kinase Albumin Urine WBC (Auto) Urine Creatinine Urine Chloride Crossmatch 11/22/16 11/23/16 11/23/16 14:25 06:49 06:49 WBC 4.1 L RBC 2.74 L Hgb 7.7 L Hct 23.8 L D Plt Count 135 L Lymph % (Auto) [place] % (Auto) 13.8 H Eos % (Auto) Lymph # Seg Neutrophils % Seg Neuts % (Manual) Lymphocytes % (Manual) Monocytes % (Manual) Lymphocytes # (Manual) INR APTT Activated Clotting Time 175 H POC ABG pH POC ABG pO2 Sodium Potassium Chloride Carbon Dioxide BUN 27 H Creatinine 1.8 H Glucose 137 H POC Glucose Uric Acid Calcium 8.0 L AST ALT Total Creatine Kinase 183 H Albumin Urine WBC (Auto) Urine Creatinine Urine Chloride Crossmatch 11/23/16 11/23/16 11/23/16 11:07 12:45 17:32 WBC RBC 2.98 L Hgb 8.5 L Hct 26.3 L Plt Count Lymph % (Auto) [place] % (Auto) 13.2 H Eos % (Auto) Lymph # Seg Neutrophils % Seg Neuts % (Manual) Lymphocytes % (Manual) Monocytes % (Manual) Lymphocytes # (Manual) INR APTT Activated Clotting Time POC ABG pH POC ABG pO2 Sodium Potassium Chloride Carbon Dioxide BUN Creatinine Glucose POC Glucose 134 H 171 H Uric Acid Calcium AST ALT Total Creatine Kinase Albumin Urine WBC (Auto) Urine Creatinine Urine Chloride Crossmatch 11/23/16 11/24/16 11/24/16 21:24 05:28 05:28 WBC RBC Hgb 8.6 L Hct 26.8 L Plt Count Lymph % (Auto) [place] % (Auto) Eos % (Auto) Lymph # Seg Neutrophils % Seg Neuts % (Manual) Lymphocytes % (Manual) Monocytes % (Manual) Lymphocytes # (Manual) INR APTT Activated Clotting Time POC ABG pH POC ABG pO2 Sodium Potassium 5.9 H D Chloride Carbon Dioxide 19 L BUN 33 H Creatinine 2.7 H Glucose 162 H POC Glucose 174 H Uric Acid Calcium AST ALT Total Creatine Kinase Albumin Urine WBC (Auto) Urine Creatinine Urine Chloride Crossmatch 11/24/16 11/24/16 11/24/16 06:23 07:05 07:09 WBC RBC Hgb Hct Plt Count Lymph % (Auto) [place] % (Auto) Eos % (Auto) Lymph # Seg Neutrophils % Seg Neuts % (Manual) Lymphocytes % (Manual) Monocytes % (Manual) Lymphocytes # (Manual) INR APTT Activated Clotting Time POC ABG pH 7.264 L POC ABG pO2 33 L Sodium Potassium 5.8 H Chloride Carbon Dioxide 20 L BUN 33 H Creatinine 2.8 H Glucose 158 H POC Glucose 209 H Uric Acid Calcium AST 100 H ALT 118 H Total Creatine Kinase Albumin 3.5 L Urine WBC (Auto) Urine Creatinine Urine Chloride Crossmatch 11/24/16 11/24/16 11/24/16 07:19 08:50 11:45 WBC RBC Hgb Hct Plt Count Lymph % (Auto) [place] % (Auto) Eos % (Auto) Lymph # Seg Neutrophils % Seg Neuts % (Manual) Lymphocytes % (Manual) Monocytes % (Manual) Lymphocytes # (Manual) INR APTT Activated Clotting Time POC ABG pH 7.285 L POC ABG pO2 64 L Sodium Potassium Chloride Carbon Dioxide BUN Creatinine Glucose POC Glucose 193 H 169 H Uric Acid Calcium AST ALT Total Creatine Kinase Albumin Urine WBC (Auto) Urine Creatinine Urine Chloride Crossmatch 11/24/16 11/24/16 11/24/16 15:24 15:32 17:14 WBC RBC Hgb Hct Plt Count Lymph % (Auto) [place] % (Auto) Eos % (Auto) Lymph # Seg Neutrophils % Seg Neuts % (Manual) Lymphocytes % (Manual) Monocytes % (Manual) Lymphocytes # (Manual) INR APTT Activated Clotting Time POC ABG pH POC ABG pO2 Sodium Potassium 5.2 H Chloride Carbon Dioxide 20 L BUN 37 H Creatinine 3.0 H Glucose 144 H POC Glucose 195 H Uric Acid Calcium AST ALT Total Creatine Kinase Albumin Urine WBC (Auto) Urine Creatinine Urine Chloride Crossmatch See Detail 11/24/16 11/24/16 11/25/16 21:57 23:39 05:30 WBC RBC Hgb Hct Plt Count Lymph % (Auto) [place] % (Auto) Eos % (Auto) Lymph # Seg Neutrophils % Seg Neuts % (Manual) Lymphocytes % (Manual) Monocytes % (Manual) Lymphocytes # (Manual) INR APTT Activated Clotting Time POC ABG pH POC ABG pO2 Sodium Potassium Chloride Carbon Dioxide BUN Creatinine Glucose POC Glucose 112 H 129 H Uric Acid Calcium AST ALT Total Creatine Kinase Albumin Urine WBC (Auto) Urine Creatinine 295.3 H Urine Chloride 31.3 L Crossmatch 11/25/16 11/25/16 11/25/16 07:00 07:00 08:40 WBC RBC 3.30 L Hgb 9.5 L Hct 29.0 L Plt Count 119 L Lymph % (Auto) [place] % (Auto) 9.5 H Eos % (Auto) Lymph # Seg Neutrophils % 72.7 H Seg Neuts % (Manual) Lymphocytes % (Manual) Monocytes % (Manual) Lymphocytes # (Manual) INR APTT Activated Clotting Time POC ABG pH POC ABG pO2 Sodium Potassium Chloride 110.1 H Carbon Dioxide 18 L BUN 38 H Creatinine 2.6 H Glucose 123 H POC Glucose 129 H Uric Acid Calcium 8.2 L AST ALT Total Creatine Kinase Albumin Urine WBC (Auto) Urine Creatinine Urine Chloride Crossmatch 11/25/16 11/25/16 11/25/16 11:24 12:17 16:16 WBC RBC Hgb Hct Plt Count Lymph % (Auto) [place] % (Auto) Eos % (Auto) Lymph # Seg Neutrophils % Seg Neuts % (Manual) Lymphocytes % (Manual) Monocytes % (Manual) Lymphocytes # (Manual) INR APTT Activated Clotting Time POC ABG pH 7.327 L POC ABG pO2 Sodium Potassium Chloride Carbon Dioxide BUN Creatinine Glucose POC Glucose 142 H 151 H Uric Acid Calcium AST ALT Total Creatine Kinase Albumin Urine WBC (Auto) Urine Creatinine Urine Chloride Crossmatch 11/25/16 11/25/16 11/26/16 21:48 22:20 00:58 WBC RBC 3.23 L Hgb 9.2 L Hct 27.9 L Plt Count 119 L Lymph % (Auto) 10.2 L [place] % (Auto) 7.6 H Eos % (Auto) Lymph # 0.8 L Seg Neutrophils % 79.9 H Seg Neuts % (Manual) Lymphocytes % (Manual) Monocytes % (Manual) Lymphocytes # (Manual) INR APTT Activated Clotting Time POC ABG pH POC ABG pO2 67 L Sodium Potassium Chloride Carbon Dioxide BUN Creatinine Glucose POC Glucose 149 H Uric Acid Calcium AST ALT Total Creatine Kinase Albumin Urine WBC (Auto) Urine Creatinine Urine Chloride Crossmatch 11/26/16 11/26/16 11/26/16 06:11 07:40 11:28 WBC RBC Hgb Hct Plt Count Lymph % (Auto) [place] % (Auto) Eos % (Auto) Lymph # Seg Neutrophils % Seg Neuts % (Manual) Lymphocytes % (Manual) Monocytes % (Manual) Lymphocytes # (Manual) INR APTT Activated Clotting Time POC ABG pH POC ABG pO2 Sodium Potassium Chloride Carbon Dioxide 21 L BUN 41 H Creatinine 2.5 H Glucose 151 H POC Glucose 144 H 168 H Uric Acid Calcium 8.1 L AST ALT Total Creatine Kinase Albumin Urine WBC (Auto) Urine Creatinine Urine Chloride Crossmatch 11/26/16 11/27/16 11/27/16 15:50 00:03 03:45 WBC RBC Hgb Hct Plt Count Lymph % (Auto) [place] % (Auto) Eos % (Auto) Lymph # Seg Neutrophils % Seg Neuts % (Manual) Lymphocytes % (Manual) Monocytes % (Manual) Lymphocytes # (Manual) INR APTT Activated Clotting Time POC ABG pH POC ABG pO2 Sodium Potassium Chloride Carbon Dioxide BUN 46 H Creatinine 2.8 H Glucose 147 H POC Glucose 153 H 183 H Uric Acid Calcium 8.1 L AST ALT Total Creatine Kinase Albumin Urine WBC (Auto) Urine Creatinine Urine Chloride Crossmatch 11/27/16 11/27/16 11/27/16 06:26 07:32 11:53 WBC RBC Hgb Hct Plt Count Lymph % (Auto) [place] % (Auto) Eos % (Auto) Lymph # Seg Neutrophils % Seg Neuts % (Manual) Lymphocytes % (Manual) Monocytes % (Manual) Lymphocytes # (Manual) INR APTT Activated Clotting Time POC ABG pH POC ABG pO2 Sodium Potassium Chloride Carbon Dioxide BUN Creatinine Glucose POC Glucose 208 H 193 H 180 H Uric Acid Calcium AST ALT Total Creatine Kinase Albumin Urine WBC (Auto) Urine Creatinine Urine Chloride Crossmatch 11/27/16 11/27/16 11/28/16 16:42 21:51 08:13 WBC RBC Hgb Hct Plt Count Lymph % (Auto) [place] % (Auto) Eos % (Auto) Lymph # Seg Neutrophils % Seg Neuts % (Manual) Lymphocytes % (Manual) Monocytes % (Manual) Lymphocytes # (Manual) INR APTT Activated Clotting Time POC ABG pH POC ABG pO2 Sodium Potassium Chloride Carbon Dioxide BUN Creatinine Glucose POC Glucose 161 H 167 H 151 H Uric Acid Calcium AST ALT Total Creatine Kinase Albumin Urine WBC (Auto) Urine Creatinine Urine Chloride Crossmatch 11/28/16 11/28/16 11/28/16 10:01 10:01 12:30 WBC RBC Hgb 8.5 L Hct 25.3 L Plt Count Lymph % (Auto) [place] % (Auto) Eos % (Auto) Lymph # Seg Neutrophils % Seg Neuts % (Manual) Lymphocytes % (Manual) Monocytes % (Manual) Lymphocytes # (Manual) INR APTT Activated Clotting Time POC ABG pH POC ABG pO2 Sodium 136 L Potassium Chloride Carbon Dioxide BUN 50 H Creatinine 2.8 H Glucose 143 H POC Glucose 154 H Uric Acid Calcium 8.1 L AST ALT Total Creatine Kinase Albumin Urine WBC (Auto) Urine Creatinine Urine Chloride Crossmatch 11/28/16 11/28/16 11/28/16 15:22 16:55 20:40 WBC RBC Hgb Hct Plt Count Lymph % (Auto) [place] % (Auto) Eos % (Auto) Lymph # Seg Neutrophils % Seg Neuts % (Manual) Lymphocytes % (Manual) Monocytes % (Manual) Lymphocytes # (Manual) INR APTT Activated Clotting Time POC ABG pH POC ABG pO2 Sodium Potassium Chloride Carbon Dioxide BUN Creatinine Glucose POC Glucose 191 H 177 H Uric Acid Calcium AST ALT Total Creatine Kinase Albumin Urine WBC (Auto) Urine Creatinine Urine Chloride Crossmatch See Detail 11/29/16 11/29/16 11/29/16 07:18 07:18 07:31 WBC RBC Hgb 9.5 L Hct 28.2 L Plt Count Lymph % (Auto) [place] % (Auto) Eos % (Auto) Lymph # Seg Neutrophils % Seg Neuts % (Manual) Lymphocytes % (Manual) Monocytes % (Manual) Lymphocytes # (Manual) INR APTT Activated Clotting Time POC ABG pH POC ABG pO2 Sodium 136 L Potassium Chloride Carbon Dioxide BUN 51 H Creatinine 2.7 H Glucose 120 H POC Glucose 127 H Uric Acid Calcium 8.1 L AST ALT Total Creatine Kinase Albumin Urine WBC (Auto) Urine Creatinine Urine Chloride Crossmatch 11/29/16 11/29/16 11/29/16 12:49 17:35 20:31 WBC RBC Hgb Hct Plt Count Lymph % (Auto) [place] % (Auto) Eos % (Auto) Lymph # Seg Neutrophils % Seg Neuts % (Manual) Lymphocytes % (Manual) Monocytes % (Manual) Lymphocytes # (Manual) INR APTT Activated Clotting Time POC ABG pH POC ABG pO2 Sodium Potassium Chloride Carbon Dioxide BUN Creatinine Glucose POC Glucose 213 H 179 H 154 H Uric Acid Calcium AST ALT Total Creatine Kinase Albumin Urine WBC (Auto) Urine Creatinine Urine Chloride Crossmatch 11/30/16 11/30/16 11/30/16 08:25 09:52 16:07 WBC RBC Hgb Hct Plt Count Lymph % (Auto) [place] % (Auto) Eos % (Auto) Lymph # Seg Neutrophils % Seg Neuts % (Manual) Lymphocytes % (Manual) Monocytes % (Manual) Lymphocytes # (Manual) INR APTT Activated Clotting Time POC ABG pH POC ABG pO2 Sodium Potassium Chloride Carbon Dioxide BUN 52 H Creatinine 3.0 H Glucose 156 H POC Glucose 127 H 216 H Uric Acid Calcium AST ALT Total Creatine Kinase Albumin Urine WBC (Auto) Urine Creatinine Urine Chloride Crossmatch 11/30/16 12/01/16 12/01/16 20:45 08:34 08:48 WBC RBC Hgb Hct Plt Count Lymph % (Auto) [place] % (Auto) Eos % (Auto) Lymph # Seg Neutrophils % Seg Neuts % (Manual) Lymphocytes % (Manual) Monocytes % (Manual) Lymphocytes # (Manual) INR APTT Activated Clotting Time POC ABG pH POC ABG pO2 Sodium 136 L Potassium Chloride Carbon Dioxide BUN 50 H Creatinine 3.0 H Glucose 124 H POC Glucose 197 H 136 H Uric Acid Calcium AST ALT Total Creatine Kinase Albumin Urine WBC (Auto) Urine Creatinine Urine Chloride Crossmatch 12/01/16 12/01/16 12/01/16 11:35 16:56 22:08 WBC RBC Hgb Hct Plt Count Lymph % (Auto) [place] % (Auto) Eos % (Auto) Lymph # Seg Neutrophils % Seg Neuts % (Manual) Lymphocytes % (Manual) Monocytes % (Manual) Lymphocytes # (Manual) INR APTT Activated Clotting Time POC ABG pH POC ABG pO2 Sodium Potassium Chloride Carbon Dioxide BUN Creatinine Glucose POC Glucose 205 H 210 H 157 H Uric Acid Calcium AST ALT Total Creatine Kinase Albumin Urine WBC (Auto) Urine Creatinine Urine Chloride Crossmatch 12/02/16 12/02/16 12/02/16 05:52 08:47 15:16 WBC RBC Hgb Hct Plt Count Lymph % (Auto) [place] % (Auto) Eos % (Auto) Lymph # Seg Neutrophils % Seg Neuts % (Manual) Lymphocytes % (Manual) Monocytes % (Manual) Lymphocytes # (Manual) INR APTT Activated Clotting Time POC ABG pH POC ABG pO2 Sodium Potassium Chloride Carbon Dioxide BUN 48 H Creatinine 2.7 H Glucose 136 H POC Glucose 134 H 226 H Uric Acid Calcium AST ALT Total Creatine Kinase Albumin Urine WBC (Auto) Urine Creatinine Urine Chloride Crossmatch 12/02/16 12/03/16 12/03/16 22:53 05:58 05:58 WBC 4.2 L RBC 3.37 L Hgb 9.7 L Hct 29.4 L Plt Count Lymph % (Auto) [place] % (Auto) Eos % (Auto) Lymph # Seg Neutrophils % Seg Neuts % (Manual) Lymphocytes % (Manual) Monocytes % (Manual) Lymphocytes # (Manual) INR APTT Activated Clotting Time POC ABG pH POC ABG pO2 Sodium Potassium Chloride Carbon Dioxide BUN 47 H Creatinine 2.7 H Glucose 142 H POC Glucose 235 H Uric Acid Calcium AST ALT Total Creatine Kinase Albumin Urine WBC (Auto) Urine Creatinine Urine Chloride Crossmatch 12/03/16 12/03/16 12/03/16 13:04 16:47 21:50 WBC RBC Hgb Hct Plt Count Lymph % (Auto) [place] % (Auto) Eos % (Auto) Lymph # Seg Neutrophils % Seg Neuts % (Manual) Lymphocytes % (Manual) Monocytes % (Manual) Lymphocytes # (Manual) INR APTT Activated Clotting Time POC ABG pH POC ABG pO2 Sodium Potassium Chloride Carbon Dioxide BUN Creatinine Glucose POC Glucose 135 H 140 H 170 H Uric Acid Calcium AST ALT Total Creatine Kinase Albumin Urine WBC (Auto) Urine Creatinine Urine Chloride Crossmatch 12/04/16 12/04/16 12/04/16 07:26 12:21 16:43 WBC RBC Hgb Hct Plt Count Lymph % (Auto) [place] % (Auto) Eos % (Auto) Lymph # Seg Neutrophils % Seg Neuts % (Manual) Lymphocytes % (Manual) Monocytes % (Manual) Lymphocytes # (Manual) INR APTT Activated Clotting Time POC ABG pH POC ABG pO2 Sodium Potassium Chloride Carbon Dioxide BUN Creatinine Glucose POC Glucose 145 H 203 H 210 H Uric Acid Calcium AST ALT Total Creatine Kinase Albumin Urine WBC (Auto) Urine Creatinine Urine Chloride Crossmatch 12/04/16 12/05/16 12/05/16 21:41 07:54 07:54 WBC RBC 3.10 L Hgb 9.0 L Hct 26.9 L Plt Count Lymph % (Auto) [place] % (Auto) 13.8 H Eos % (Auto) 5.3 H Lymph # 1.1 L Seg Neutrophils % Seg Neuts % (Manual) Lymphocytes % (Manual) Monocytes % (Manual) Lymphocytes # (Manual) INR APTT Activated Clotting Time POC ABG pH POC ABG pO2 Sodium Potassium Chloride Carbon Dioxide BUN 51 H Creatinine 3.7 H Glucose 132 H POC Glucose 211 H Uric Acid Calcium AST ALT Total Creatine Kinase Albumin Urine WBC (Auto) Urine Creatinine Urine Chloride Crossmatch 12/05/16 12/05/16 12/05/16 08:30 11:46 22:02 WBC RBC Hgb Hct Plt Count Lymph % (Auto) [place] % (Auto) Eos % (Auto) Lymph # Seg Neutrophils % Seg Neuts % (Manual) Lymphocytes % (Manual) Monocytes % (Manual) Lymphocytes # (Manual) INR APTT Activated Clotting Time POC ABG pH POC ABG pO2 Sodium Potassium Chloride Carbon Dioxide BUN Creatinine Glucose POC Glucose 140 H 225 H 165 H Uric Acid Calcium AST ALT Total Creatine Kinase Albumin Urine WBC (Auto) Urine Creatinine Urine Chloride Crossmatch 12/06/16 12/06/16 12/06/16 08:17 09:10 09:10 WBC RBC Hgb Hct Plt Count Lymph % (Auto) [place] % (Auto) Eos % (Auto) Lymph # Seg Neutrophils % Seg Neuts % (Manual) Lymphocytes % (Manual) Monocytes % (Manual) Lymphocytes # (Manual) INR APTT Activated Clotting Time POC ABG pH POC ABG pO2 Sodium Potassium Chloride 97.6 L Carbon Dioxide BUN 50 H Creatinine 3.8 H Glucose 126 H POC Glucose 166 H Uric Acid 10.0 H Calcium AST ALT Total Creatine Kinase Albumin Urine WBC (Auto) Urine Creatinine Urine Chloride Crossmatch 12/06/16 12/06/16 12/06/16 12:18 17:39 22:31 WBC RBC Hgb Hct Plt Count Lymph % (Auto) [place] % (Auto) Eos % (Auto) Lymph # Seg Neutrophils % Seg Neuts % (Manual) Lymphocytes % (Manual) Monocytes % (Manual) Lymphocytes # (Manual) INR APTT Activated Clotting Time POC ABG pH POC ABG pO2 Sodium Potassium Chloride Carbon Dioxide BUN Creatinine Glucose POC Glucose 188 H 176 H 157 H Uric Acid Calcium AST ALT Total Creatine Kinase Albumin Urine WBC (Auto) Urine Creatinine Urine Chloride Crossmatch 12/07/16 12/07/16 12/07/16 08:48 08:49 09:01 WBC RBC Hgb Hct Plt Count Lymph % (Auto) [place] % (Auto) Eos % (Auto) Lymph # Seg Neutrophils % Seg Neuts % (Manual) Lymphocytes % (Manual) Monocytes % (Manual) Lymphocytes # (Manual) INR APTT Activated Clotting Time POC ABG pH POC ABG pO2 Sodium Potassium Chloride 97.9 L Carbon Dioxide BUN 52 H Creatinine 4.2 H Glucose 105 H POC Glucose 107 H Uric Acid 10.3 H Calcium AST ALT Total Creatine Kinase 188 H Albumin Urine WBC (Auto) Urine Creatinine Urine Chloride Crossmatch 12/07/16 12/07/16 12/07/16 12:27 16:59 17:25 WBC RBC Hgb Hct Plt Count Lymph % (Auto) [place] % (Auto) Eos % (Auto) Lymph # Seg Neutrophils % Seg Neuts % (Manual) Lymphocytes % (Manual) Monocytes % (Manual) Lymphocytes # (Manual) INR APTT Activated Clotting Time POC ABG pH POC ABG pO2 Sodium Potassium Chloride Carbon Dioxide BUN Creatinine Glucose POC Glucose 163 H 124 H Uric Acid Calcium AST ALT Total Creatine Kinase Albumin Urine WBC (Auto) 9.0 H Urine Creatinine Urine Chloride Crossmatch 12/07/16 12/07/16 12/08/16 17:25 22:04 07:53 WBC RBC Hgb Hct Plt Count Lymph % (Auto) [place] % (Auto) Eos % (Auto) Lymph # Seg Neutrophils % Seg Neuts % (Manual) Lymphocytes % (Manual) Monocytes % (Manual) Lymphocytes # (Manual) INR APTT Activated Clotting Time POC ABG pH POC ABG pO2 Sodium Potassium Chloride Carbon Dioxide BUN Creatinine Glucose POC Glucose 133 H 168 H Uric Acid Calcium AST ALT Total Creatine Kinase Albumin Urine WBC (Auto) Urine Creatinine 336.8 H Urine Chloride Crossmatch 12/08/16 12/08/16 12/08/16 08:05 12:17 22:09 WBC RBC Hgb Hct Plt Count Lymph % (Auto) [place] % (Auto) Eos % (Auto) Lymph # Seg Neutrophils % Seg Neuts % (Manual) Lymphocytes % (Manual) Monocytes % (Manual) Lymphocytes # (Manual) INR APTT Activated Clotting Time POC ABG pH POC ABG pO2 Sodium Potassium Chloride Carbon Dioxide BUN 55 H Creatinine 5.0 H Glucose 142 H POC Glucose 140 H 154 H Uric Acid Calcium AST ALT Total Creatine Kinase Albumin Urine WBC (Auto) Urine Creatinine Urine Chloride Crossmatch 12/09/16 12/09/16 12/09/16 06:40 07:47 08:41 WBC RBC 3.09 L Hgb 8.8 L Hct 27.0 L Plt Count Lymph % (Auto) [place] % (Auto) Eos % (Auto) Lymph # Seg Neutrophils % Seg Neuts % (Manual) 75.0 H Lymphocytes % (Manual) 13.0 L Monocytes % (Manual) 8.0 H Lymphocytes # (Manual) 0.7 L INR APTT Activated Clotting Time POC ABG pH POC ABG pO2 Sodium Potassium Chloride Carbon Dioxide BUN 23 H Creatinine 3.1 H Glucose 108 H POC Glucose 115 H Uric Acid Calcium AST ALT Total Creatine Kinase Albumin Urine WBC (Auto) Urine Creatinine Urine Chloride Crossmatch 12/09/16 12/09/16 12/09/16 08:41 12:26 22:19 WBC RBC Hgb Hct Plt Count Lymph % (Auto) [place] % (Auto) Eos % (Auto) Lymph # Seg Neutrophils % Seg Neuts % (Manual) Lymphocytes % (Manual) Monocytes % (Manual) Lymphocytes # (Manual) INR APTT Activated Clotting Time POC ABG pH POC ABG pO2 Sodium Potassium Chloride Carbon Dioxide BUN 23 H Creatinine 3.0 H Glucose 108 H POC Glucose 140 H 139 H Uric Acid Calcium AST ALT Total Creatine Kinase Albumin Urine WBC (Auto) Urine Creatinine Urine Chloride Crossmatch 12/10/16 12/10/16 12/10/16 06:00 06:00 06:00 WBC RBC 3.47 L Hgb 9.8 L Hct Plt Count Lymph % (Auto) [place] % (Auto) Eos % (Auto) Lymph # Seg Neutrophils % Seg Neuts % (Manual) Lymphocytes % (Manual) Monocytes % (Manual) Lymphocytes # (Manual) INR APTT Activated Clotting Time POC ABG pH POC ABG pO2 Sodium Potassium Chloride Carbon Dioxide BUN Creatinine 1.9 H 1.9 H Glucose 120 H 120 H POC Glucose Uric Acid Calcium AST ALT Total Creatine Kinase Albumin 5.1 H Urine WBC (Auto) Urine Creatinine Urine Chloride Crossmatch 12/10/16 12/10/16 12/10/16 08:34 16:38 21:00 WBC RBC Hgb Hct Plt Count Lymph % (Auto) [place] % (Auto) Eos % (Auto) Lymph # Seg Neutrophils % Seg Neuts % (Manual) Lymphocytes % (Manual) Monocytes % (Manual) Lymphocytes # (Manual) INR APTT Activated Clotting Time POC ABG pH POC ABG pO2 Sodium Potassium Chloride Carbon Dioxide BUN Creatinine Glucose POC Glucose 137 H 109 H 155 H Uric Acid Calcium AST ALT Total Creatine Kinase Albumin Urine WBC (Auto) Urine Creatinine Urine Chloride Crossmatch 12/11/16 12/11/16 12/11/16 06:02 12:33 17:36 WBC RBC Hgb Hct Plt Count Lymph % (Auto) [place] % (Auto) Eos % (Auto) Lymph # Seg Neutrophils % Seg Neuts % (Manual) Lymphocytes % (Manual) Monocytes % (Manual) Lymphocytes # (Manual) INR APTT Activated Clotting Time POC ABG pH POC ABG pO2 Sodium Potassium Chloride 97.0 L Carbon Dioxide 31 H BUN Creatinine 2.3 H Glucose 133 H POC Glucose 131 H 145 H Uric Acid Calcium AST ALT Total Creatine Kinase Albumin Urine WBC (Auto) Urine Creatinine Urine Chloride Crossmatch 12/11/16 12/12/16 12/12/16 21:50 05:58 07:46 WBC RBC Hgb Hct Plt Count Lymph % (Auto) [place] % (Auto) Eos % (Auto) Lymph # Seg Neutrophils % Seg Neuts % (Manual) Lymphocytes % (Manual) Monocytes % (Manual) Lymphocytes # (Manual) INR APTT Activated Clotting Time POC ABG pH POC ABG pO2 Sodium Potassium Chloride Carbon Dioxide BUN Creatinine 3.5 H D Glucose 127 H POC Glucose 158 H 148 H Uric Acid Calcium AST ALT Total Creatine Kinase Albumin Urine WBC (Auto) Urine Creatinine Urine Chloride Crossmatch 12/12/16 12/12/16 12/12/16 11:42 15:55 21:56 WBC RBC Hgb Hct Plt Count Lymph % (Auto) [place] % (Auto) Eos % (Auto) Lymph # Seg Neutrophils % Seg Neuts % (Manual) Lymphocytes % (Manual) Monocytes % (Manual) Lymphocytes # (Manual) INR APTT Activated Clotting Time POC ABG pH POC ABG pO2 Sodium Potassium Chloride Carbon Dioxide BUN Creatinine Glucose POC Glucose 189 H 167 H 160 H Uric Acid Calcium AST ALT Total Creatine Kinase Albumin Urine WBC (Auto) Urine Creatinine Urine Chloride Crossmatch 12/13/16 12/13/16 12/13/16 04:31 04:31 08:03 WBC RBC 3.29 L Hgb 9.4 L Hct 28.9 L Plt Count Lymph % (Auto) [place] % (Auto) 9.2 H Eos % (Auto) Lymph # 1.1 L Seg Neutrophils % Seg Neuts % (Manual) Lymphocytes % (Manual) Monocytes % (Manual) Lymphocytes # (Manual) INR APTT Activated Clotting Time POC ABG pH POC ABG pO2 Sodium Potassium Chloride Carbon Dioxide BUN Creatinine 4.8 H Glucose 119 H POC Glucose 128 H Uric Acid Calcium AST ALT Total Creatine Kinase Albumin Urine WBC (Auto) Urine Creatinine Urine Chloride Crossmatch 12/13/16 12/13/16 12/14/16 17:16 21:37 05:57 WBC RBC 3.40 L Hgb 9.7 L Hct 30.0 L Plt Count Lymph % (Auto) [place] % (Auto) 11.2 H Eos % (Auto) Lymph # Seg Neutrophils % Seg Neuts % (Manual) Lymphocytes % (Manual) Monocytes % (Manual) Lymphocytes # (Manual) INR APTT Activated Clotting Time POC ABG pH POC ABG pO2 Sodium Potassium Chloride Carbon Dioxide BUN Creatinine Glucose POC Glucose 122 H 158 H Uric Acid Calcium AST ALT Total Creatine Kinase Albumin Urine WBC (Auto) Urine Creatinine Urine Chloride Crossmatch 12/14/16 12/14/16 12/14/16 05:57 08:29 12:53 WBC RBC Hgb Hct Plt Count Lymph % (Auto) [place] % (Auto) Eos % (Auto) Lymph # Seg Neutrophils % Seg Neuts % (Manual) Lymphocytes % (Manual) Monocytes % (Manual) Lymphocytes # (Manual) INR APTT Activated Clotting Time POC ABG pH POC ABG pO2 Sodium Potassium Chloride Carbon Dioxide BUN Creatinine 2.8 H Glucose POC Glucose 124 H 181 H Uric Acid Calcium AST ALT Total Creatine Kinase Albumin Urine WBC (Auto) Urine Creatinine Urine Chloride Crossmatch 12/14/16 12/14/16 12/15/16 17:50 22:59 05:30 WBC RBC Hgb Hct Plt Count Lymph % (Auto) [place] % (Auto) Eos % (Auto) Lymph # Seg Neutrophils % Seg Neuts % (Manual) Lymphocytes % (Manual) Monocytes % (Manual) Lymphocytes # (Manual) INR APTT Activated Clotting Time POC ABG pH POC ABG pO2 Sodium Potassium Chloride Carbon Dioxide BUN Creatinine 2.8 H Glucose 105 H POC Glucose 121 H 108 H Uric Acid Calcium AST ALT Total Creatine Kinase Albumin Urine WBC (Auto) Urine Creatinine Urine Chloride Crossmatch 12/15/16 12/15/16 12/15/16 08:06 08:49 16:50 WBC RBC 3.09 L Hgb 8.9 L Hct 27.6 L Plt Count Lymph % (Auto) [place] % (Auto) 12.4 H Eos % (Auto) Lymph # 1.0 L Seg Neutrophils % Seg Neuts % (Manual) Lymphocytes % (Manual) Monocytes % (Manual) Lymphocytes # (Manual) INR APTT Activated Clotting Time POC ABG pH 7.456 H POC ABG pO2 61 L Sodium Potassium Chloride Carbon Dioxide BUN Creatinine Glucose POC Glucose 156 H Uric Acid Calcium AST ALT Total Creatine Kinase Albumin Urine WBC (Auto) Urine Creatinine Urine Chloride Crossmatch 12/15/16 12/15/16 12/16/16 17:36 21:49 06:16 WBC RBC 2.91 L Hgb 8.3 L Hct 25.7 L Plt Count Lymph % (Auto) [place] % (Auto) 15.2 H Eos % (Auto) Lymph # 0.9 L Seg Neutrophils % Seg Neuts % (Manual) Lymphocytes % (Manual) Monocytes % (Manual) Lymphocytes # (Manual) INR APTT Activated Clotting Time POC ABG pH POC ABG pO2 Sodium Potassium Chloride Carbon Dioxide BUN Creatinine Glucose POC Glucose 177 H 203 H Uric Acid Calcium AST ALT Total Creatine Kinase Albumin Urine WBC (Auto) Urine Creatinine Urine Chloride Crossmatch 12/16/16 12/16/16 12/16/16 06:16 12:35 16:34 WBC RBC Hgb Hct Plt Count Lymph % (Auto) [place] % (Auto) Eos % (Auto) Lymph # Seg Neutrophils % Seg Neuts % (Manual) Lymphocytes % (Manual) Monocytes % (Manual) Lymphocytes # (Manual) INR APTT Activated Clotting Time POC ABG pH POC ABG pO2 Sodium Potassium Chloride Carbon Dioxide 31 H BUN Creatinine 2.1 H Glucose 175 H POC Glucose 206 H 187 H Uric Acid Calcium AST ALT Total Creatine Kinase Albumin Urine WBC (Auto) Urine Creatinine Urine Chloride Crossmatch 12/16/16 12/16/16 12/17/16 21:04 21:23 07:52 WBC 4.4 L RBC 3.00 L Hgb 8.7 L Hct 26.6 L Plt Count Lymph % (Auto) [place] % (Auto) 13.5 H Eos % (Auto) Lymph # 1.1 L Seg Neutrophils % Seg Neuts % (Manual) Lymphocytes % (Manual) Monocytes % (Manual) Lymphocytes # (Manual) INR APTT Activated Clotting Time POC ABG pH POC ABG pO2 Sodium Potassium Chloride Carbon Dioxide BUN Creatinine Glucose POC Glucose 171 H 144 H Uric Acid Calcium AST ALT Total Creatine Kinase Albumin Urine WBC (Auto) Urine Creatinine Urine Chloride Crossmatch 12/17/16 12/17/16 12/18/16 07:52 16:15 02:25 WBC RBC Hgb Hct Plt Count Lymph % (Auto) [place] % (Auto) Eos % (Auto) Lymph # Seg Neutrophils % Seg Neuts % (Manual) Lymphocytes % (Manual) Monocytes % (Manual) Lymphocytes # (Manual) INR APTT Activated Clotting Time POC ABG pH POC ABG pO2 Sodium Potassium Chloride Carbon Dioxide BUN Creatinine 3.1 H Glucose 111 H POC Glucose 133 H 174 H Uric Acid Calcium AST ALT Total Creatine Kinase Albumin Urine WBC (Auto) Urine Creatinine Urine Chloride Crossmatch 12/18/16 12/18/16 12/18/16 07:30 07:30 07:56 WBC RBC 3.36 L Hgb 9.7 L Hct 29.3 L Plt Count Lymph % (Auto) [place] % (Auto) 14.6 H Eos % (Auto) Lymph # Seg Neutrophils % Seg Neuts % (Manual) Lymphocytes % (Manual) Monocytes % (Manual) Lymphocytes # (Manual) INR APTT Activated Clotting Time POC ABG pH POC ABG pO2 Sodium Potassium Chloride Carbon Dioxide BUN Creatinine 1.7 H Glucose 155 H POC Glucose 157 H Uric Acid Calcium AST ALT Total Creatine Kinase Albumin Urine WBC (Auto) Urine Creatinine Urine Chloride Crossmatch 12/18/16 12/18/16 12/18/16 12:00 16:35 21:43 WBC RBC Hgb Hct Plt Count Lymph % (Auto) [place] % (Auto) Eos % (Auto) Lymph # Seg Neutrophils % Seg Neuts % (Manual) Lymphocytes % (Manual) Monocytes % (Manual) Lymphocytes # (Manual) INR APTT Activated Clotting Time POC ABG pH POC ABG pO2 Sodium Potassium Chloride Carbon Dioxide BUN Creatinine Glucose POC Glucose 199 H 286 H 126 H Uric Acid Calcium AST ALT Total Creatine Kinase Albumin Urine WBC (Auto) Urine Creatinine Urine Chloride Crossmatch 12/19/16 12/19/16 12/19/16 06:34 06:34 07:56 WBC RBC 3.37 L Hgb 9.5 L Hct 29.1 L Plt Count Lymph % (Auto) 38.8 H [place] % (Auto) 11.5 H Eos % (Auto) Lymph # Seg Neutrophils % Seg Neuts % (Manual) Lymphocytes % (Manual) Monocytes % (Manual) Lymphocytes # (Manual) INR APTT Activated Clotting Time POC ABG pH POC ABG pO2 Sodium Potassium 3.4 L Chloride Carbon Dioxide BUN Creatinine 2.1 H Glucose 117 H POC Glucose 124 H Uric Acid Calcium AST ALT Total Creatine Kinase Albumin Urine WBC (Auto) Urine Creatinine Urine Chloride Crossmatch 12/19/16 12/19/16 12/20/16 11:46 16:40 08:34 WBC RBC Hgb Hct Plt Count Lymph % (Auto) [place] % (Auto) Eos % (Auto) Lymph # Seg Neutrophils % Seg Neuts % (Manual) Lymphocytes % (Manual) Monocytes % (Manual) Lymphocytes # (Manual) INR APTT Activated Clotting Time POC ABG pH POC ABG pO2 Sodium Potassium Chloride Carbon Dioxide BUN Creatinine Glucose POC Glucose 152 H 295 H 186 H Uric Acid Calcium AST ALT Total Creatine Kinase Albumin Urine WBC (Auto) Urine Creatinine Urine Chloride Crossmatch 12/20/16 12/20/16 10:53 12:24 WBC RBC Hgb Hct Plt Count Lymph % (Auto) [place] % (Auto) Eos % (Auto) Lymph # Seg Neutrophils % Seg Neuts % (Manual) Lymphocytes % (Manual) Monocytes % (Manual) Lymphocytes # (Manual) INR APTT Activated Clotting Time POC ABG pH POC ABG pO2 Sodium Potassium 3.5 L Chloride Carbon Dioxide BUN 23 H Creatinine 3.0 H Glucose 204 H POC Glucose 227 H Uric Acid Calcium AST ALT Total Creatine Kinase Albumin Urine WBC (Auto) Urine Creatinine Urine Chloride Crossmatch
[2016-12-21] MEDS: ZOFRAN IV PRN (01:38)
[2016-12-21 09:04] LABS: Basophils % (Auto) 0.8 % (0.0-1.8); Eosinophils % (Auto) 4.2 % (0.0-4.3); Hematocrit 28.6 % (30.3-42.9); Hemoglobin 9.5 gm/dl (10.1-14.3); Mean Corpuscular HGB Conc 33 % (30-34); Mean Corpuscular Hemoglobin 29 pg (28-32); Mean Corpuscular Volume 87 fl (79-97); Platelet Count 180 K/mm3 (140-440); Red Blood Count 3.28 M/mm3 (3.65-5.03); Red Cell Distribution Width 14.2 % (13.2-15.2); White Blood Count 3.6 K/mm3 (4.5-11.0)
--- NOTE | 2016-12-21 09:08 | Progress Note ---
Assessment and Plan Assessment: * Nonoliguric PATRIA secondary to contrast induced nephropathy on Stage III CKD- HD initiation 12/08 --Baseline SCr 1.4mg/dL * CAD s/p LHC w/ PCI * Cardiomyopathy - EF 40-45% * Hypertension * Anemia Plan: * Hemodialysis on hold. Last treatment on Monday, December 17. Renal function improved - SCr trending down from 3.0 to 2.3 * Will arrange permcath removal * Patient is stable for d/c once permcath removed * Avoid potential nephrotoxins * Dose medications for renal function * Strict I/O * Will arrange close outpatient nephrology follow up Subjective Date of service: 12/21/16 Principal diagnosis: Acute Encephalopathy; PATRIA on Dialysis; CAD s/p PCI and stenting Interval history: Patient has no complaints today. Objective - Vital Signs Vital signs: Vital Signs - 12hr 12/21/16 12/21/16 12/21/16 00:00 03:00 04:52 Temperature 98.2 F 98.4 F Pulse Rate 73 Pulse Rate [ 73 74 Right Radial] Respiratory 18 18 Rate Blood Pressure 150/66 161/77 [Right Arm] O2 Sat by Pulse 98 97 Oximetry - General Appearance General appearance: well-developed, well-nourished EENT: ATNC Respiratory: Present: Clear to Ascultation Cardiology: regular, S1S2 Gastrointestinal: normal, no tenderness, no distended Neurologic: no focal deficit Musculoskeletal: other (no edema) Psychiatric: cooperative - Lab 12/21/16 08:42 12/21/16 08:42 Most recent lab results Calcium 9.2 mg/dL (8.4-10.2) 12/20/16 10:53 Urine Creatinine 336.8 mg/dL (0.1-20.0) H 12/07/16 17:25 Urine Sodium 13 mEq/L 12/07/16 17:25
[2016-12-21 09:17] LABS: Calcium 9.2 mg/dL (8.4-10.2)
[2016-12-21 09:18] LABS: Chloride 100.5 mmol/L (98-107); Potassium 3.5 mmol/L (3.6-5.0)
--- NOTE | 2016-12-21 10:03 | Progress Note ---
Assessment and Plan Altered mental status -resolved Head CT shows no acute intracranial process Volume overload Hyperkalemia -resolved Coronary artery disease with prior CABG Right and LHC findings: moderate to severe elevated left and right heart filling pressures; moderate to severe pulmonary HTN 3 vessel disease ESTRADA to LAD patent SVG x 2 occluded (Diag and OM) subtotal occlusion of proximal segment of SVG to RCA treated with a drug eluting stent EF 40-45% Acute renal failure secondary to contrast nephropathy initiated on dialysis Acute drop in H&H s/p blood transfusion Ischemic Cardiomyopathy Hypertension Deconditioning Continue medical therapy for coronary artery disease, including dual oral antiplatelet therapy for recent coronary stent. Stable cardiac cross. Subjective Date of service: 12/21/16 Principal diagnosis: Acute Encephalopathy; PATRIA on Dialysis; CAD s/p PCI and stenting Interval history: No interval changes. Awaits discharge, as soon as outpatient dialysis is established. Objective Vital Signs Temp Pulse Pulse Resp BP BP Pulse Ox 12/21/16 04:52 98.4 F 74 18 161/77 97 12/21/16 03:00 73 12/21/16 00:00 98.2 F 73 18 150/66 98 12/20/16 20:00 98.1 F 78 18 138/63 98 12/20/16 16:33 98.9 F 77 20 138/67 96 12/20/16 14:00 71 12/20/16 11:33 73 138/63 12/20/16 11:32 73 138/63 - Physical Examination General: No Apparent Distress Cardiac: Positive: Reg Rate and Rhythm - Labs and Meds CBC 12/21/16 Range/Units 08:42 WBC 3.6 L (4.5-11.0) K/mm3 RBC 3.28 L (3.65-5.03) M/mm3 Hgb 9.5 L (10.1-14.3) gm/dl Hct 28.6 L (30.3-42.9) % Plt Count 180 (140-440) K/mm3 Lymph # 1.1 L (1.2-5.4) K/mm3 [place] # 0.5 (0.0-0.8) K/mm3 Eos # 0.2 (0.0-0.4) K/mm3 Baso # 0.0 (0.0-0.1) K/mm3 Comprehensive Metabolic Panel 12/20/16 12/21/16 Range/Units 10:53 08:42 Sodium 140 142 (137-145) mmol/L Potassium 3.5 L 3.5 L (3.6-5.0) mmol/L Chloride 99.0 100.5 (98-107) mmol/L Carbon Dioxide 25 27 (22-30) mmol/L BUN 23 H 23 H (7-17) mg/dL Creatinine 3.0 H 2.3 H (0.7-1.2) mg/dL Glucose 204 H 197 H (65-100) mg/dL Calcium 9.2 9.2 (8.4-10.2) mg/dL
--- NOTE | 2016-12-21 10:08 | Discharge Summary ---
Providers - Providers Date of Admission: 11/23/16 07:30 Date of discharge: 12/21/16 Attending physician: MARY ANNE GOSS MD 11/22/16 Consult to Cardiac Rehabilitation [CONS] Routine Reason For Exam: post pci 11/24/16 08:44 Consult to Physician [CONS] Routine Consulting Provider: TAYLOR DUNAWAY Reason For Exam: Acute renal failure Place consult to:: davey Notified:: office Phone number called:: [phone] Was contact made?: Yes Time called:: 09:15 11/25/16 09:05 Consult to Physician [CONS] Urgent Consulting Provider: NEFTALI BORDEN Reason For Exam: critical care management Place consult to:: Notified:: yes via text Phone number called:: [phone] Was contact made?: Yes If yes, spoke with:: sent by text Time called:: 09:00 11/29/16 11:18 Physical Therapy Evaluation and Treat [CONS] Routine Comment: Reason For Exam: deconditioning 12/07/16 12:38 Consult to Physician [CONS] Urgent Consulting Provider: ETHEL SARKAR Reason For Exam: [facility] consult to:: we will call the physician Notified:: we will call the physician 12/07/16 17:54 Consult to Physician [CONS] Routine Consulting Provider: DEMETRIUS SALGUERO Reason For Exam: [facility] consult to:: Dr. Salguero Notified:: Shane MCKINNEY Phone number called:: Was contact made?: Yes If yes, spoke with:: Karlene service Time called:: 17:58 Primary care physician: NELLIE GALAVIZ Hospitalization Reason for admission: CAD status post stent placement, acute renal failure Hospital course: Patient is a 56-year-old woman with a history of CKD 3 with baseline cr of 1.8, hyperlipidemia, hypertension, CAD, CHF with ejection fraction of 40-50% in 2013 and ischemic cardiomyopathy who presented for an outpatient cardiac catheterization 11/22/16 and had PCI of SVG to RCA with 99% to 0% with 3.0 mm DE stent. Patient was admitted by Cardiology in the hospital to monitor creatinine before discharge. Repeat labs in the morning did reveal an increase in creatinine around 2.7. Patient was also lethargic with altered sensorium and was placed in the ICU for close observation. Hospitalist consulted and . She was also on nitro drip but with no fever blood pressure was adequately controlled. Subsequently the Lasix was discontinued and HERO inhibitor discontinue due to the rise in creatinine. Nephrology and pulmonology/ ccm were consulted. It was determined that the patient will benefit from dialysis. Patient was subsequent transferred out of the ICU to the floor as she remained stable. Patient showed improvement and her creatinine is getting better. Nephrology recommended to discontinue hemodialysis and follow her as an outpatient. Cardiology also and follow her as an outpatient. Patient was hemodynamically stable at the time of discharge. Patient's medications were revised and refilled at the time of discharge. Patient's questions and concerns were addressed at the bedside. Disposition: [id number] HOME UNDER HOME HLTH - Discharge Diagnoses (1) PATRIA (acute kidney injury) Status: Acute (2) Acute encephalopathy Status: Acute (3) Acute kidney injury superimposed on CKD Status: Acute (4) Anemia Status: Acute Qualifiers: Anemia type: A Iron deficiency anemia type: I Vitamin B12 deficiency anemia type: V Folate deficiency anemia type: F Bone marrow failure anemia type: B Hemolytic anemia type: H Other causes of anemia: O Chronic kidney disease stage: C (5) CAD (coronary artery disease) of artery bypass graft Status: Acute Qualifiers: [place] vs. transplanted heart: N Associated angina: A Core Measure Documentation - Palliative Care Palliative Care/ Comfort Measures: Not Applicable - Core Measures Any of the following diagnoses?: acute HI - Acute HI Discharge Requirements Aspirin at discharge: Yes HERO/ARB for LVSD if EF <40%: No Reason for no HERO/ARB: Renal impairment Beta gael at discharge: Yes Statin for LDL = or >100 mg/dl on DC: Yes Exam - Physical Exam Narrative exam: Not in cardiopulmonary distress. The patient appeared well nourished and normally developed. Vital signs as documented. Head exam is unremarkable. No scleral icterus . Neck is without jugular venous distension, thyromegaly, or carotid bruits. Lungs are clear to auscultation. Cardiac exam reveals regular rate and Rhythm. Abdominal exam reveals normal bowel sounds, no masses, no organomegaly. Extremities are nonedematous and both femoral and pedal pulses are normal. [employer]: Alert and oriented 3. No focal weakness. - Constitutional Vitals: Temp Pulse Resp BP Pulse Ox 98.4 F 74 18 161/77 97 12/21/16 04:52 12/21/16 04:52 12/21/16 04:52 12/21/16 04:52 12/21/16 04:52 Plan Activity: no restrictions Weight Bearing Status: Full Weight Bearing Diet: low cholesterol, low salt Follow up with: NELLIE GALAVIZ MD [Primary Care Provider] - 7 Days TAYLOR DUNAWAY MD [Staff Physician] - 7 Days [facility] [Provider Group] - 14 Days Prescriptions: AtorvaSTATin [Lipitor] 40 mg PO QHS #30 tablet Insulin Glargine [Lantus VIAL] 10 unit SUB-Q QHS #1 vial amLODIPine [Norvasc] 5 mg PO DAILY #30 tablet Aspirin EC [Aspirin Enteric Coated TAB] 325 mg PO QDAY #30 tablet Carvedilol [Coreg] 25 mg PO BID #60 tablet cloNIDine [Catapres] 0.1 mg PO BID PRN #60 tablet PRN Reason: SBP >150 ISOSORBIDE MONOnitrate [Imdur ER] 30 mg PO DAILY #30 tablet NIFEdipine XL [Procardia Xl] 30 mg PO QDAY #30 tablet Pantoprazole [Protonix TAB] 40 mg PO QDAY #30 tablet Venlafaxine Xr [Effexor XR] 150 mg PO QDAY #30 capsule
[2016-12-21] MEDS: EFFEXOR XR PO SCH (10:17)
[2016-12-21] MEDS: COREG PO SCH (10:18)
[2016-12-21] MEDS: IMDUR PO SCH (10:19)
[2016-12-21] MEDS: ECOTRIN PO SCH (10:19)
[2016-12-21] MEDS: PROTONIX PO SCH (10:19)
[2016-12-21] MEDS: PROCARDIA XL PO SCH (10:19)
[2016-12-21] MEDS: PLAVIX PO SCH (10:20)
[2016-12-21] MEDS: HEPARIN SUB-Q SCH (10:20)
[2016-12-21 10:21] VITALS: BP 165/72
[2016-12-21] MEDS ORDERED: XYLOCAINE 1% 20 mL INFILTRATI ONE (15:00)
--- NOTE | 2016-12-21 16:50 | Procedure Note ---
Date of procedure: 12/21/16 Pre-op diagnosis: resolved renal failure Post-op diagnosis: same Procedure: rigth IJ permcath removal Anesthesia: local Surgeon: SEVERIANO PORTER Estimated blood loss: none Pathology: none Condition: stable Disposition: no change
--- NOTE | 2016-12-21 23:54 | Progress Note ---
Assessment and Plan Patient alert, awake.Patients condition same..No complaint of chest pain or shortness of breath..Patient resting on room air and O2 saturation 96%. - Patient Problems (1) PATRIA (acute kidney injury) Status: Acute Plan to address problem: Management as per nephrology. (2) Acute encephalopathy Status: Acute Plan to address problem: Patient more alert. Encephalopathy improving. (3) Anemia Status: Acute Qualifiers: Anemia type: A Iron deficiency anemia type: I Vitamin B12 deficiency anemia type: V Folate deficiency anemia type: F Bone marrow failure anemia type: B Hemolytic anemia type: H Other causes of anemia: O Chronic kidney disease stage: C Plan to address problem: Management as per primary care. (4) CAD (coronary artery disease) of artery bypass graft Status: Acute Qualifiers: [place] vs. transplanted heart: N Associated angina: A Plan to address problem: Management as per cardiology. (5) Obesity (BMI 30-39.9) Status: Acute Plan to address problem: Weight reduction diet. (6) Sleep apnea Status: Acute Qualifiers: Sleep apnea type: S Plan to address problem: Possible sleep apnea. BIPAP standby in the room. Recommend sleep study as out patient. Subjective Date of service: 12/21/16 Principal diagnosis: Acute Encephalopathy; PATRIA on Dialysis; CAD s/p PCI and stenting Interval history: Patient alert, awake.Patients condition same.No complaint of chest pain or shortness of breath..Patient resting on room air and O2 saturation 96%. Objective Vital Signs - 12hr 12/21/16 15:00 Pulse Rate 71 Constitutional: no acute distress, asleep Eyes: non-icteric ENT: oropharynx moist Neck: supple, no lymphadenopathy Effort: normal Ascultation: Bilateral: diminished breath sounds, rales (scant in posterior bases) Cardiovascular: regular rate and rhythm Gastrointestinal: normoactive bowel sounds, soft, non-tender, non-distended Integumentary: normal Extremities: no cyanosis, no edema, pulses normal, no ischemia or petechiae Neurologic: normal mental status, non-focal exam, pupils equal and round, motor strength normal and Psychiatric: depressed CBC and BMP: 12/21/16 08:42 12/21/16 08:42 ABG, PT/INR, D-dimer: ABG POC ABG pH 7.456 (7.35-7.45) H 12/15/16 16:50 POC ABG pCO2 41.3 (35-45) 12/15/16 16:50 POC ABG pO2 61 (80-105) L 12/15/16 16:50 POC ABG HCO3 29.0 12/15/16 16:50 POC ABG Total CO2 30 12/15/16 16:50 POC ABG O2 Sat 92 12/15/16 16:50 PT/INR, D-dimer PT 14.5 Sec. (12.2-14.9) 11/22/16 07:20 INR 1.14 (0.87-1.13) H 11/22/16 07:20 Abnormal lab findings: Abnormal Labs 11/22/16 11/22/16 11/22/16 07:20 07:20 07:20 WBC RBC 3.52 L Hgb Hct Plt Count Lymph % (Auto) [place] % (Auto) 11.5 H Eos % (Auto) Lymph # Seg Neutrophils % Seg Neuts % (Manual) Lymphocytes % (Manual) Monocytes % (Manual) Lymphocytes # (Manual) INR 1.14 H APTT Activated Clotting Time POC ABG pH POC ABG pO2 Sodium Potassium Chloride 108.0 H Carbon Dioxide BUN 25 H Creatinine 1.4 H Glucose POC Glucose Uric Acid Calcium AST ALT Total Creatine Kinase Albumin Urine WBC (Auto) Urine Creatinine Urine Chloride Crossmatch 11/22/16 11/22/16 11/22/16 07:37 10:46 13:13 WBC RBC Hgb Hct Plt Count Lymph % (Auto) [place] % (Auto) Eos % (Auto) Lymph # Seg Neutrophils % Seg Neuts % (Manual) Lymphocytes % (Manual) Monocytes % (Manual) Lymphocytes # (Manual) INR APTT 37.7 H Activated Clotting Time 327 H 202 H POC ABG pH POC ABG pO2 Sodium Potassium Chloride Carbon Dioxide BUN Creatinine Glucose POC Glucose Uric Acid Calcium AST ALT Total Creatine Kinase Albumin Urine WBC (Auto) Urine Creatinine Urine Chloride Crossmatch 11/22/16 11/23/16 11/23/16 14:25 06:49 06:49 WBC 4.1 L RBC 2.74 L Hgb 7.7 L Hct 23.8 L D Plt Count 135 L Lymph % (Auto) [place] % (Auto) 13.8 H Eos % (Auto) Lymph # Seg Neutrophils % Seg Neuts % (Manual) Lymphocytes % (Manual) Monocytes % (Manual) Lymphocytes # (Manual) INR APTT Activated Clotting Time 175 H POC ABG pH POC ABG pO2 Sodium Potassium Chloride Carbon Dioxide BUN 27 H Creatinine 1.8 H Glucose 137 H POC Glucose Uric Acid Calcium 8.0 L AST ALT Total Creatine Kinase 183 H Albumin Urine WBC (Auto) Urine Creatinine Urine Chloride Crossmatch 11/23/16 11/23/16 11/23/16 11:07 12:45 17:32 WBC RBC 2.98 L Hgb 8.5 L Hct 26.3 L Plt Count Lymph % (Auto) [place] % (Auto) 13.2 H Eos % (Auto) Lymph # Seg Neutrophils % Seg Neuts % (Manual) Lymphocytes % (Manual) Monocytes % (Manual) Lymphocytes # (Manual) INR APTT Activated Clotting Time POC ABG pH POC ABG pO2 Sodium Potassium Chloride Carbon Dioxide BUN Creatinine Glucose POC Glucose 134 H 171 H Uric Acid Calcium AST ALT Total Creatine Kinase Albumin Urine WBC (Auto) Urine Creatinine Urine Chloride Crossmatch 11/23/16 11/24/16 11/24/16 21:24 05:28 05:28 WBC RBC Hgb 8.6 L Hct 26.8 L Plt Count Lymph % (Auto) [place] % (Auto) Eos % (Auto) Lymph # Seg Neutrophils % Seg Neuts % (Manual) Lymphocytes % (Manual) Monocytes % (Manual) Lymphocytes # (Manual) INR APTT Activated Clotting Time POC ABG pH POC ABG pO2 Sodium Potassium 5.9 H D Chloride Carbon Dioxide 19 L BUN 33 H Creatinine 2.7 H Glucose 162 H POC Glucose 174 H Uric Acid Calcium AST ALT Total Creatine Kinase Albumin Urine WBC (Auto) Urine Creatinine Urine Chloride Crossmatch 11/24/16 11/24/16 11/24/16 06:23 07:05 07:09 WBC RBC Hgb Hct Plt Count Lymph % (Auto) [place] % (Auto) Eos % (Auto) Lymph # Seg Neutrophils % Seg Neuts % (Manual) Lymphocytes % (Manual) Monocytes % (Manual) Lymphocytes # (Manual) INR APTT Activated Clotting Time POC ABG pH 7.264 L POC ABG pO2 33 L Sodium Potassium 5.8 H Chloride Carbon Dioxide 20 L BUN 33 H Creatinine 2.8 H Glucose 158 H POC Glucose 209 H Uric Acid Calcium AST 100 H ALT 118 H Total Creatine Kinase Albumin 3.5 L Urine WBC (Auto) Urine Creatinine Urine Chloride Crossmatch 11/24/16 11/24/16 11/24/16 07:19 08:50 11:45 WBC RBC Hgb Hct Plt Count Lymph % (Auto) [place] % (Auto) Eos % (Auto) Lymph # Seg Neutrophils % Seg Neuts % (Manual) Lymphocytes % (Manual) Monocytes % (Manual) Lymphocytes # (Manual) INR APTT Activated Clotting Time POC ABG pH 7.285 L POC ABG pO2 64 L Sodium Potassium Chloride Carbon Dioxide BUN Creatinine Glucose POC Glucose 193 H 169 H Uric Acid Calcium AST ALT Total Creatine Kinase Albumin Urine WBC (Auto) Urine Creatinine Urine Chloride Crossmatch 11/24/16 11/24/16 11/24/16 15:24 15:32 17:14 WBC RBC Hgb Hct Plt Count Lymph % (Auto) [place] % (Auto) Eos % (Auto) Lymph # Seg Neutrophils % Seg Neuts % (Manual) Lymphocytes % (Manual) Monocytes % (Manual) Lymphocytes # (Manual) INR APTT Activated Clotting Time POC ABG pH POC ABG pO2 Sodium Potassium 5.2 H Chloride Carbon Dioxide 20 L BUN 37 H Creatinine 3.0 H Glucose 144 H POC Glucose 195 H Uric Acid Calcium AST ALT Total Creatine Kinase Albumin Urine WBC (Auto) Urine Creatinine Urine Chloride Crossmatch See Detail 11/24/16 11/24/16 11/25/16 21:57 23:39 05:30 WBC RBC Hgb Hct Plt Count Lymph % (Auto) [place] % (Auto) Eos % (Auto) Lymph # Seg Neutrophils % Seg Neuts % (Manual) Lymphocytes % (Manual) Monocytes % (Manual) Lymphocytes # (Manual) INR APTT Activated Clotting Time POC ABG pH POC ABG pO2 Sodium Potassium Chloride Carbon Dioxide BUN Creatinine Glucose POC Glucose 112 H 129 H Uric Acid Calcium AST ALT Total Creatine Kinase Albumin Urine WBC (Auto) Urine Creatinine 295.3 H Urine Chloride 31.3 L Crossmatch 11/25/16 11/25/16 11/25/16 07:00 07:00 08:40 WBC RBC 3.30 L Hgb 9.5 L Hct 29.0 L Plt Count 119 L Lymph % (Auto) [place] % (Auto) 9.5 H Eos % (Auto) Lymph # Seg Neutrophils % 72.7 H Seg Neuts % (Manual) Lymphocytes % (Manual) Monocytes % (Manual) Lymphocytes # (Manual) INR APTT Activated Clotting Time POC ABG pH POC ABG pO2 Sodium Potassium Chloride 110.1 H Carbon Dioxide 18 L BUN 38 H Creatinine 2.6 H Glucose 123 H POC Glucose 129 H Uric Acid Calcium 8.2 L AST ALT Total Creatine Kinase Albumin Urine WBC (Auto) Urine Creatinine Urine Chloride Crossmatch 11/25/16 11/25/16 11/25/16 11:24 12:17 16:16 WBC RBC Hgb Hct Plt Count Lymph % (Auto) [place] % (Auto) Eos % (Auto) Lymph # Seg Neutrophils % Seg Neuts % (Manual) Lymphocytes % (Manual) Monocytes % (Manual) Lymphocytes # (Manual) INR APTT Activated Clotting Time POC ABG pH 7.327 L POC ABG pO2 Sodium Potassium Chloride Carbon Dioxide BUN Creatinine Glucose POC Glucose 142 H 151 H Uric Acid Calcium AST ALT Total Creatine Kinase Albumin Urine WBC (Auto) Urine Creatinine Urine Chloride Crossmatch 11/25/16 11/25/16 11/26/16 21:48 22:20 00:58 WBC RBC 3.23 L Hgb 9.2 L Hct 27.9 L Plt Count 119 L Lymph % (Auto) 10.2 L [place] % (Auto) 7.6 H Eos % (Auto) Lymph # 0.8 L Seg Neutrophils % 79.9 H Seg Neuts % (Manual) Lymphocytes % (Manual) Monocytes % (Manual) Lymphocytes # (Manual) INR APTT Activated Clotting Time POC ABG pH POC ABG pO2 67 L Sodium Potassium Chloride Carbon Dioxide BUN Creatinine Glucose POC Glucose 149 H Uric Acid Calcium AST ALT Total Creatine Kinase Albumin Urine WBC (Auto) Urine Creatinine Urine Chloride Crossmatch 11/26/16 11/26/16 11/26/16 06:11 07:40 11:28 WBC RBC Hgb Hct Plt Count Lymph % (Auto) [place] % (Auto) Eos % (Auto) Lymph # Seg Neutrophils % Seg Neuts % (Manual) Lymphocytes % (Manual) Monocytes % (Manual) Lymphocytes # (Manual) INR APTT Activated Clotting Time POC ABG pH POC ABG pO2 Sodium Potassium Chloride Carbon Dioxide 21 L BUN 41 H Creatinine 2.5 H Glucose 151 H POC Glucose 144 H 168 H Uric Acid Calcium 8.1 L AST ALT Total Creatine Kinase Albumin Urine WBC (Auto) Urine Creatinine Urine Chloride Crossmatch 11/26/16 11/27/16 11/27/16 15:50 00:03 03:45 WBC RBC Hgb Hct Plt Count Lymph % (Auto) [place] % (Auto) Eos % (Auto) Lymph # Seg Neutrophils % Seg Neuts % (Manual) Lymphocytes % (Manual) Monocytes % (Manual) Lymphocytes # (Manual) INR APTT Activated Clotting Time POC ABG pH POC ABG pO2 Sodium Potassium Chloride Carbon Dioxide BUN 46 H Creatinine 2.8 H Glucose 147 H POC Glucose 153 H 183 H Uric Acid Calcium 8.1 L AST ALT Total Creatine Kinase Albumin Urine WBC (Auto) Urine Creatinine Urine Chloride Crossmatch 11/27/16 11/27/16 11/27/16 06:26 07:32 11:53 WBC RBC Hgb Hct Plt Count Lymph % (Auto) [place] % (Auto) Eos % (Auto) Lymph # Seg Neutrophils % Seg Neuts % (Manual) Lymphocytes % (Manual) Monocytes % (Manual) Lymphocytes # (Manual) INR APTT Activated Clotting Time POC ABG pH POC ABG pO2 Sodium Potassium Chloride Carbon Dioxide BUN Creatinine Glucose POC Glucose 208 H 193 H 180 H Uric Acid Calcium AST ALT Total Creatine Kinase Albumin Urine WBC (Auto) Urine Creatinine Urine Chloride Crossmatch 11/27/16 11/27/16 11/28/16 16:42 21:51 08:13 WBC RBC Hgb Hct Plt Count Lymph % (Auto) [place] % (Auto) Eos % (Auto) Lymph # Seg Neutrophils % Seg Neuts % (Manual) Lymphocytes % (Manual) Monocytes % (Manual) Lymphocytes # (Manual) INR APTT Activated Clotting Time POC ABG pH POC ABG pO2 Sodium Potassium Chloride Carbon Dioxide BUN Creatinine Glucose POC Glucose 161 H 167 H 151 H Uric Acid Calcium AST ALT Total Creatine Kinase Albumin Urine WBC (Auto) Urine Creatinine Urine Chloride Crossmatch 11/28/16 11/28/16 11/28/16 10:01 10:01 12:30 WBC RBC Hgb 8.5 L Hct 25.3 L Plt Count Lymph % (Auto) [place] % (Auto) Eos % (Auto) Lymph # Seg Neutrophils % Seg Neuts % (Manual) Lymphocytes % (Manual) Monocytes % (Manual) Lymphocytes # (Manual) INR APTT Activated Clotting Time POC ABG pH POC ABG pO2 Sodium 136 L Potassium Chloride Carbon Dioxide BUN 50 H Creatinine 2.8 H Glucose 143 H POC Glucose 154 H Uric Acid Calcium 8.1 L AST ALT Total Creatine Kinase Albumin Urine WBC (Auto) Urine Creatinine Urine Chloride Crossmatch 11/28/16 11/28/16 11/28/16 15:22 16:55 20:40 WBC RBC Hgb Hct Plt Count Lymph % (Auto) [place] % (Auto) Eos % (Auto) Lymph # Seg Neutrophils % Seg Neuts % (Manual) Lymphocytes % (Manual) Monocytes % (Manual) Lymphocytes # (Manual) INR APTT Activated Clotting Time POC ABG pH POC ABG pO2 Sodium Potassium Chloride Carbon Dioxide BUN Creatinine Glucose POC Glucose 191 H 177 H Uric Acid Calcium AST ALT Total Creatine Kinase Albumin Urine WBC (Auto) Urine Creatinine Urine Chloride Crossmatch See Detail 11/29/16 11/29/16 11/29/16 07:18 07:18 07:31 WBC RBC Hgb 9.5 L Hct 28.2 L Plt Count Lymph % (Auto) [place] % (Auto) Eos % (Auto) Lymph # Seg Neutrophils % Seg Neuts % (Manual) Lymphocytes % (Manual) Monocytes % (Manual) Lymphocytes # (Manual) INR APTT Activated Clotting Time POC ABG pH POC ABG pO2 Sodium 136 L Potassium Chloride Carbon Dioxide BUN 51 H Creatinine 2.7 H Glucose 120 H POC Glucose 127 H Uric Acid Calcium 8.1 L AST ALT Total Creatine Kinase Albumin Urine WBC (Auto) Urine Creatinine Urine Chloride Crossmatch 11/29/16 11/29/16 11/29/16 12:49 17:35 20:31 WBC RBC Hgb Hct Plt Count Lymph % (Auto) [place] % (Auto) Eos % (Auto) Lymph # Seg Neutrophils % Seg Neuts % (Manual) Lymphocytes % (Manual) Monocytes % (Manual) Lymphocytes # (Manual) INR APTT Activated Clotting Time POC ABG pH POC ABG pO2 Sodium Potassium Chloride Carbon Dioxide BUN Creatinine Glucose POC Glucose 213 H 179 H 154 H Uric Acid Calcium AST ALT Total Creatine Kinase Albumin Urine WBC (Auto) Urine Creatinine Urine Chloride Crossmatch 11/30/16 11/30/16 11/30/16 08:25 09:52 16:07 WBC RBC Hgb Hct Plt Count Lymph % (Auto) [place] % (Auto) Eos % (Auto) Lymph # Seg Neutrophils % Seg Neuts % (Manual) Lymphocytes % (Manual) Monocytes % (Manual) Lymphocytes # (Manual) INR APTT Activated Clotting Time POC ABG pH POC ABG pO2 Sodium Potassium Chloride Carbon Dioxide BUN 52 H Creatinine 3.0 H Glucose 156 H POC Glucose 127 H 216 H Uric Acid Calcium AST ALT Total Creatine Kinase Albumin Urine WBC (Auto) Urine Creatinine Urine Chloride Crossmatch 11/30/16 12/01/16 12/01/16 20:45 08:34 08:48 WBC RBC Hgb Hct Plt Count Lymph % (Auto) [place] % (Auto) Eos % (Auto) Lymph # Seg Neutrophils % Seg Neuts % (Manual) Lymphocytes % (Manual) Monocytes % (Manual) Lymphocytes # (Manual) INR APTT Activated Clotting Time POC ABG pH POC ABG pO2 Sodium 136 L Potassium Chloride Carbon Dioxide BUN 50 H Creatinine 3.0 H Glucose 124 H POC Glucose 197 H 136 H Uric Acid Calcium AST ALT Total Creatine Kinase Albumin Urine WBC (Auto) Urine Creatinine Urine Chloride Crossmatch 12/01/16 12/01/16 12/01/16 11:35 16:56 22:08 WBC RBC Hgb Hct Plt Count Lymph % (Auto) [place] % (Auto) Eos % (Auto) Lymph # Seg Neutrophils % Seg Neuts % (Manual) Lymphocytes % (Manual) Monocytes % (Manual) Lymphocytes # (Manual) INR APTT Activated Clotting Time POC ABG pH POC ABG pO2 Sodium Potassium Chloride Carbon Dioxide BUN Creatinine Glucose POC Glucose 205 H 210 H 157 H Uric Acid Calcium AST ALT Total Creatine Kinase Albumin Urine WBC (Auto) Urine Creatinine Urine Chloride Crossmatch 12/02/16 12/02/16 12/02/16 05:52 08:47 15:16 WBC RBC Hgb Hct Plt Count Lymph % (Auto) [place] % (Auto) Eos % (Auto) Lymph # Seg Neutrophils % Seg Neuts % (Manual) Lymphocytes % (Manual) Monocytes % (Manual) Lymphocytes # (Manual) INR APTT Activated Clotting Time POC ABG pH POC ABG pO2 Sodium Potassium Chloride Carbon Dioxide BUN 48 H Creatinine 2.7 H Glucose 136 H POC Glucose 134 H 226 H Uric Acid Calcium AST ALT Total Creatine Kinase Albumin Urine WBC (Auto) Urine Creatinine Urine Chloride Crossmatch 12/02/16 12/03/16 12/03/16 22:53 05:58 05:58 WBC 4.2 L RBC 3.37 L Hgb 9.7 L Hct 29.4 L Plt Count Lymph % (Auto) [place] % (Auto) Eos % (Auto) Lymph # Seg Neutrophils % Seg Neuts % (Manual) Lymphocytes % (Manual) Monocytes % (Manual) Lymphocytes # (Manual) INR APTT Activated Clotting Time POC ABG pH POC ABG pO2 Sodium Potassium Chloride Carbon Dioxide BUN 47 H Creatinine 2.7 H Glucose 142 H POC Glucose 235 H Uric Acid Calcium AST ALT Total Creatine Kinase Albumin Urine WBC (Auto) Urine Creatinine Urine Chloride Crossmatch 12/03/16 12/03/16 12/03/16 13:04 16:47 21:50 WBC RBC Hgb Hct Plt Count Lymph % (Auto) [place] % (Auto) Eos % (Auto) Lymph # Seg Neutrophils % Seg Neuts % (Manual) Lymphocytes % (Manual) Monocytes % (Manual) Lymphocytes # (Manual) INR APTT Activated Clotting Time POC ABG pH POC ABG pO2 Sodium Potassium Chloride Carbon Dioxide BUN Creatinine Glucose POC Glucose 135 H 140 H 170 H Uric Acid Calcium AST ALT Total Creatine Kinase Albumin Urine WBC (Auto) Urine Creatinine Urine Chloride Crossmatch 12/04/16 12/04/16 12/04/16 07:26 12:21 16:43 WBC RBC Hgb Hct Plt Count Lymph % (Auto) [place] % (Auto) Eos % (Auto) Lymph # Seg Neutrophils % Seg Neuts % (Manual) Lymphocytes % (Manual) Monocytes % (Manual) Lymphocytes # (Manual) INR APTT Activated Clotting Time POC ABG pH POC ABG pO2 Sodium Potassium Chloride Carbon Dioxide BUN Creatinine Glucose POC Glucose 145 H 203 H 210 H Uric Acid Calcium AST ALT Total Creatine Kinase Albumin Urine WBC (Auto) Urine Creatinine Urine Chloride Crossmatch 12/04/16 12/05/16 12/05/16 21:41 07:54 07:54 WBC RBC 3.10 L Hgb 9.0 L Hct 26.9 L Plt Count Lymph % (Auto) [place] % (Auto) 13.8 H Eos % (Auto) 5.3 H Lymph # 1.1 L Seg Neutrophils % Seg Neuts % (Manual) Lymphocytes % (Manual) Monocytes % (Manual) Lymphocytes # (Manual) INR APTT Activated Clotting Time POC ABG pH POC ABG pO2 Sodium Potassium Chloride Carbon Dioxide BUN 51 H Creatinine 3.7 H Glucose 132 H POC Glucose 211 H Uric Acid Calcium AST ALT Total Creatine Kinase Albumin Urine WBC (Auto) Urine Creatinine Urine Chloride Crossmatch 12/05/16 12/05/16 12/05/16 08:30 11:46 22:02 WBC RBC Hgb Hct Plt Count Lymph % (Auto) [place] % (Auto) Eos % (Auto) Lymph # Seg Neutrophils % Seg Neuts % (Manual) Lymphocytes % (Manual) Monocytes % (Manual) Lymphocytes # (Manual) INR APTT Activated Clotting Time POC ABG pH POC ABG pO2 Sodium Potassium Chloride Carbon Dioxide BUN Creatinine Glucose POC Glucose 140 H 225 H 165 H Uric Acid Calcium AST ALT Total Creatine Kinase Albumin Urine WBC (Auto) Urine Creatinine Urine Chloride Crossmatch 12/06/16 12/06/16 12/06/16 08:17 09:10 09:10 WBC RBC Hgb Hct Plt Count Lymph % (Auto) [place] % (Auto) Eos % (Auto) Lymph # Seg Neutrophils % Seg Neuts % (Manual) Lymphocytes % (Manual) Monocytes % (Manual) Lymphocytes # (Manual) INR APTT Activated Clotting Time POC ABG pH POC ABG pO2 Sodium Potassium Chloride 97.6 L Carbon Dioxide BUN 50 H Creatinine 3.8 H Glucose 126 H POC Glucose 166 H Uric Acid 10.0 H Calcium AST ALT Total Creatine Kinase Albumin Urine WBC (Auto) Urine Creatinine Urine Chloride Crossmatch 12/06/16 12/06/16 12/06/16 12:18 17:39 22:31 WBC RBC Hgb Hct Plt Count Lymph % (Auto) [place] % (Auto) Eos % (Auto) Lymph # Seg Neutrophils % Seg Neuts % (Manual) Lymphocytes % (Manual) Monocytes % (Manual) Lymphocytes # (Manual) INR APTT Activated Clotting Time POC ABG pH POC ABG pO2 Sodium Potassium Chloride Carbon Dioxide BUN Creatinine Glucose POC Glucose 188 H 176 H 157 H Uric Acid Calcium AST ALT Total Creatine Kinase Albumin Urine WBC (Auto) Urine Creatinine Urine Chloride Crossmatch 12/07/16 12/07/16 12/07/16 08:48 08:49 09:01 WBC RBC Hgb Hct Plt Count Lymph % (Auto) [place] % (Auto) Eos % (Auto) Lymph # Seg Neutrophils % Seg Neuts % (Manual) Lymphocytes % (Manual) Monocytes % (Manual) Lymphocytes # (Manual) INR APTT Activated Clotting Time POC ABG pH POC ABG pO2 Sodium Potassium Chloride 97.9 L Carbon Dioxide BUN 52 H Creatinine 4.2 H Glucose 105 H POC Glucose 107 H Uric Acid 10.3 H Calcium AST ALT Total Creatine Kinase 188 H Albumin Urine WBC (Auto) Urine Creatinine Urine Chloride Crossmatch 12/07/16 12/07/16 12/07/16 12:27 16:59 17:25 WBC RBC Hgb Hct Plt Count Lymph % (Auto) [place] % (Auto) Eos % (Auto) Lymph # Seg Neutrophils % Seg Neuts % (Manual) Lymphocytes % (Manual) Monocytes % (Manual) Lymphocytes # (Manual) INR APTT Activated Clotting Time POC ABG pH POC ABG pO2 Sodium Potassium Chloride Carbon Dioxide BUN Creatinine Glucose POC Glucose 163 H 124 H Uric Acid Calcium AST ALT Total Creatine Kinase Albumin Urine WBC (Auto) 9.0 H Urine Creatinine Urine Chloride Crossmatch 12/07/16 12/07/16 12/08/16 17:25 22:04 07:53 WBC RBC Hgb Hct Plt Count Lymph % (Auto) [place] % (Auto) Eos % (Auto) Lymph # Seg Neutrophils % Seg Neuts % (Manual) Lymphocytes % (Manual) Monocytes % (Manual) Lymphocytes # (Manual) INR APTT Activated Clotting Time POC ABG pH POC ABG pO2 Sodium Potassium Chloride Carbon Dioxide BUN Creatinine Glucose POC Glucose 133 H 168 H Uric Acid Calcium AST ALT Total Creatine Kinase Albumin Urine WBC (Auto) Urine Creatinine 336.8 H Urine Chloride Crossmatch 12/08/16 12/08/16 12/08/16 08:05 12:17 22:09 WBC RBC Hgb Hct Plt Count Lymph % (Auto) [place] % (Auto) Eos % (Auto) Lymph # Seg Neutrophils % Seg Neuts % (Manual) Lymphocytes % (Manual) Monocytes % (Manual) Lymphocytes # (Manual) INR APTT Activated Clotting Time POC ABG pH POC ABG pO2 Sodium Potassium Chloride Carbon Dioxide BUN 55 H Creatinine 5.0 H Glucose 142 H POC Glucose 140 H 154 H Uric Acid Calcium AST ALT Total Creatine Kinase Albumin Urine WBC (Auto) Urine Creatinine Urine Chloride Crossmatch 12/09/16 12/09/16 12/09/16 06:40 07:47 08:41 WBC RBC 3.09 L Hgb 8.8 L Hct 27.0 L Plt Count Lymph % (Auto) [place] % (Auto) Eos % (Auto) Lymph # Seg Neutrophils % Seg Neuts % (Manual) 75.0 H Lymphocytes % (Manual) 13.0 L Monocytes % (Manual) 8.0 H Lymphocytes # (Manual) 0.7 L INR APTT Activated Clotting Time POC ABG pH POC ABG pO2 Sodium Potassium Chloride Carbon Dioxide BUN 23 H Creatinine 3.1 H Glucose 108 H POC Glucose 115 H Uric Acid Calcium AST ALT Total Creatine Kinase Albumin Urine WBC (Auto) Urine Creatinine Urine Chloride Crossmatch 12/09/16 12/09/16 12/09/16 08:41 12:26 22:19 WBC RBC Hgb Hct Plt Count Lymph % (Auto) [place] % (Auto) Eos % (Auto) Lymph # Seg Neutrophils % Seg Neuts % (Manual) Lymphocytes % (Manual) Monocytes % (Manual) Lymphocytes # (Manual) INR APTT Activated Clotting Time POC ABG pH POC ABG pO2 Sodium Potassium Chloride Carbon Dioxide BUN 23 H Creatinine 3.0 H Glucose 108 H POC Glucose 140 H 139 H Uric Acid Calcium AST ALT Total Creatine Kinase Albumin Urine WBC (Auto) Urine Creatinine Urine Chloride Crossmatch 12/10/16 12/10/16 12/10/16 06:00 06:00 06:00 WBC RBC 3.47 L Hgb 9.8 L Hct Plt Count Lymph % (Auto) [place] % (Auto) Eos % (Auto) Lymph # Seg Neutrophils % Seg Neuts % (Manual) Lymphocytes % (Manual) Monocytes % (Manual) Lymphocytes # (Manual) INR APTT Activated Clotting Time POC ABG pH POC ABG pO2 Sodium Potassium Chloride Carbon Dioxide BUN Creatinine 1.9 H 1.9 H Glucose 120 H 120 H POC Glucose Uric Acid Calcium AST ALT Total Creatine Kinase Albumin 5.1 H Urine WBC (Auto) Urine Creatinine Urine Chloride Crossmatch 12/10/16 12/10/16 12/10/16 08:34 16:38 21:00 WBC RBC Hgb Hct Plt Count Lymph % (Auto) [place] % (Auto) Eos % (Auto) Lymph # Seg Neutrophils % Seg Neuts % (Manual) Lymphocytes % (Manual) Monocytes % (Manual) Lymphocytes # (Manual) INR APTT Activated Clotting Time POC ABG pH POC ABG pO2 Sodium Potassium Chloride Carbon Dioxide BUN Creatinine Glucose POC Glucose 137 H 109 H 155 H Uric Acid Calcium AST ALT Total Creatine Kinase Albumin Urine WBC (Auto) Urine Creatinine Urine Chloride Crossmatch 12/11/16 12/11/16 12/11/16 06:02 12:33 17:36 WBC RBC Hgb Hct Plt Count Lymph % (Auto) [place] % (Auto) Eos % (Auto) Lymph # Seg Neutrophils % Seg Neuts % (Manual) Lymphocytes % (Manual) Monocytes % (Manual) Lymphocytes # (Manual) INR APTT Activated Clotting Time POC ABG pH POC ABG pO2 Sodium Potassium Chloride 97.0 L Carbon Dioxide 31 H BUN Creatinine 2.3 H Glucose 133 H POC Glucose 131 H 145 H Uric Acid Calcium AST ALT Total Creatine Kinase Albumin Urine WBC (Auto) Urine Creatinine Urine Chloride Crossmatch 12/11/16 12/12/16 12/12/16 21:50 05:58 07:46 WBC RBC Hgb Hct Plt Count Lymph % (Auto) [place] % (Auto) Eos % (Auto) Lymph # Seg Neutrophils % Seg Neuts % (Manual) Lymphocytes % (Manual) Monocytes % (Manual) Lymphocytes # (Manual) INR APTT Activated Clotting Time POC ABG pH POC ABG pO2 Sodium Potassium Chloride Carbon Dioxide BUN Creatinine 3.5 H D Glucose 127 H POC Glucose 158 H 148 H Uric Acid Calcium AST ALT Total Creatine Kinase Albumin Urine WBC (Auto) Urine Creatinine Urine Chloride Crossmatch 12/12/16 12/12/16 12/12/16 11:42 15:55 21:56 WBC RBC Hgb Hct Plt Count Lymph % (Auto) [place] % (Auto) Eos % (Auto) Lymph # Seg Neutrophils % Seg Neuts % (Manual) Lymphocytes % (Manual) Monocytes % (Manual) Lymphocytes # (Manual) INR APTT Activated Clotting Time POC ABG pH POC ABG pO2 Sodium Potassium Chloride Carbon Dioxide BUN Creatinine Glucose POC Glucose 189 H 167 H 160 H Uric Acid Calcium AST ALT Total Creatine Kinase Albumin Urine WBC (Auto) Urine Creatinine Urine Chloride Crossmatch 12/13/16 12/13/16 12/13/16 04:31 04:31 08:03 WBC RBC 3.29 L Hgb 9.4 L Hct 28.9 L Plt Count Lymph % (Auto) [place] % (Auto) 9.2 H Eos % (Auto) Lymph # 1.1 L Seg Neutrophils % Seg Neuts % (Manual) Lymphocytes % (Manual) Monocytes % (Manual) Lymphocytes # (Manual) INR APTT Activated Clotting Time POC ABG pH POC ABG pO2 Sodium Potassium Chloride Carbon Dioxide BUN Creatinine 4.8 H Glucose 119 H POC Glucose 128 H Uric Acid Calcium AST ALT Total Creatine Kinase Albumin Urine WBC (Auto) Urine Creatinine Urine Chloride Crossmatch 12/13/16 12/13/16 12/14/16 17:16 21:37 05:57 WBC RBC 3.40 L Hgb 9.7 L Hct 30.0 L Plt Count Lymph % (Auto) [place] % (Auto) 11.2 H Eos % (Auto) Lymph # Seg Neutrophils % Seg Neuts % (Manual) Lymphocytes % (Manual) Monocytes % (Manual) Lymphocytes # (Manual) INR APTT Activated Clotting Time POC ABG pH POC ABG pO2 Sodium Potassium Chloride Carbon Dioxide BUN Creatinine Glucose POC Glucose 122 H 158 H Uric Acid Calcium AST ALT Total Creatine Kinase Albumin Urine WBC (Auto) Urine Creatinine Urine Chloride Crossmatch 12/14/16 12/14/16 12/14/16 05:57 08:29 12:53 WBC RBC Hgb Hct Plt Count Lymph % (Auto) [place] % (Auto) Eos % (Auto) Lymph # Seg Neutrophils % Seg Neuts % (Manual) Lymphocytes % (Manual) Monocytes % (Manual) Lymphocytes # (Manual) INR APTT Activated Clotting Time POC ABG pH POC ABG pO2 Sodium Potassium Chloride Carbon Dioxide BUN Creatinine 2.8 H Glucose POC Glucose 124 H 181 H Uric Acid Calcium AST ALT Total Creatine Kinase Albumin Urine WBC (Auto) Urine Creatinine Urine Chloride Crossmatch 12/14/16 12/14/16 12/15/16 17:50 22:59 05:30 WBC RBC Hgb Hct Plt Count Lymph % (Auto) [place] % (Auto) Eos % (Auto) Lymph # Seg Neutrophils % Seg Neuts % (Manual) Lymphocytes % (Manual) Monocytes % (Manual) Lymphocytes # (Manual) INR APTT Activated Clotting Time POC ABG pH POC ABG pO2 Sodium Potassium Chloride Carbon Dioxide BUN Creatinine 2.8 H Glucose 105 H POC Glucose 121 H 108 H Uric Acid Calcium AST ALT Total Creatine Kinase Albumin Urine WBC (Auto) Urine Creatinine Urine Chloride Crossmatch 12/15/16 12/15/16 12/15/16 08:06 08:49 16:50 WBC RBC 3.09 L Hgb 8.9 L Hct 27.6 L Plt Count Lymph % (Auto) [place] % (Auto) 12.4 H Eos % (Auto) Lymph # 1.0 L Seg Neutrophils % Seg Neuts % (Manual) Lymphocytes % (Manual) Monocytes % (Manual) Lymphocytes # (Manual) INR APTT Activated Clotting Time POC ABG pH 7.456 H POC ABG pO2 61 L Sodium Potassium Chloride Carbon Dioxide BUN Creatinine Glucose POC Glucose 156 H Uric Acid Calcium AST ALT Total Creatine Kinase Albumin Urine WBC (Auto) Urine Creatinine Urine Chloride Crossmatch 12/15/16 12/15/16 12/16/16 17:36 21:49 06:16 WBC RBC 2.91 L Hgb 8.3 L Hct 25.7 L Plt Count Lymph % (Auto) [place] % (Auto) 15.2 H Eos % (Auto) Lymph # 0.9 L Seg Neutrophils % Seg Neuts % (Manual) Lymphocytes % (Manual) Monocytes % (Manual) Lymphocytes # (Manual) INR APTT Activated Clotting Time POC ABG pH POC ABG pO2 Sodium Potassium Chloride Carbon Dioxide BUN Creatinine Glucose POC Glucose 177 H 203 H Uric Acid Calcium AST ALT Total Creatine Kinase Albumin Urine WBC (Auto) Urine Creatinine Urine Chloride Crossmatch 12/16/16 12/16/16 12/16/16 06:16 12:35 16:34 WBC RBC Hgb Hct Plt Count Lymph % (Auto) [place] % (Auto) Eos % (Auto) Lymph # Seg Neutrophils % Seg Neuts % (Manual) Lymphocytes % (Manual) Monocytes % (Manual) Lymphocytes # (Manual) INR APTT Activated Clotting Time POC ABG pH POC ABG pO2 Sodium Potassium Chloride Carbon Dioxide 31 H BUN Creatinine 2.1 H Glucose 175 H POC Glucose 206 H 187 H Uric Acid Calcium AST ALT Total Creatine Kinase Albumin Urine WBC (Auto) Urine Creatinine Urine Chloride Crossmatch 12/16/16 12/16/16 12/17/16 21:04 21:23 07:52 WBC 4.4 L RBC 3.00 L Hgb 8.7 L Hct 26.6 L Plt Count Lymph % (Auto) [place] % (Auto) 13.5 H Eos % (Auto) Lymph # 1.1 L Seg Neutrophils % Seg Neuts % (Manual) Lymphocytes % (Manual) Monocytes % (Manual) Lymphocytes # (Manual) INR APTT Activated Clotting Time POC ABG pH POC ABG pO2 Sodium Potassium Chloride Carbon Dioxide BUN Creatinine Glucose POC Glucose 171 H 144 H Uric Acid Calcium AST ALT Total Creatine Kinase Albumin Urine WBC (Auto) Urine Creatinine Urine Chloride Crossmatch 12/17/16 12/17/16 12/18/16 07:52 16:15 02:25 WBC RBC Hgb Hct Plt Count Lymph % (Auto) [place] % (Auto) Eos % (Auto) Lymph # Seg Neutrophils % Seg Neuts % (Manual) Lymphocytes % (Manual) Monocytes % (Manual) Lymphocytes # (Manual) INR APTT Activated Clotting Time POC ABG pH POC ABG pO2 Sodium Potassium Chloride Carbon Dioxide BUN Creatinine 3.1 H Glucose 111 H POC Glucose 133 H 174 H Uric Acid Calcium AST ALT Total Creatine Kinase Albumin Urine WBC (Auto) Urine Creatinine Urine Chloride Crossmatch 12/18/16 12/18/16 12/18/16 07:30 07:30 07:56 WBC RBC 3.36 L Hgb 9.7 L Hct 29.3 L Plt Count Lymph % (Auto) [place] % (Auto) 14.6 H Eos % (Auto) Lymph # Seg Neutrophils % Seg Neuts % (Manual) Lymphocytes % (Manual) Monocytes % (Manual) Lymphocytes # (Manual) INR APTT Activated Clotting Time POC ABG pH POC ABG pO2 Sodium Potassium Chloride Carbon Dioxide BUN Creatinine 1.7 H Glucose 155 H POC Glucose 157 H Uric Acid Calcium AST ALT Total Creatine Kinase Albumin Urine WBC (Auto) Urine Creatinine Urine Chloride Crossmatch 12/18/16 12/18/16 12/18/16 12:00 16:35 21:43 WBC RBC Hgb Hct Plt Count Lymph % (Auto) [place] % (Auto) Eos % (Auto) Lymph # Seg Neutrophils % Seg Neuts % (Manual) Lymphocytes % (Manual) Monocytes % (Manual) Lymphocytes # (Manual) INR APTT Activated Clotting Time POC ABG pH POC ABG pO2 Sodium Potassium Chloride Carbon Dioxide BUN Creatinine Glucose POC Glucose 199 H 286 H 126 H Uric Acid Calcium AST ALT Total Creatine Kinase Albumin Urine WBC (Auto) Urine Creatinine Urine Chloride Crossmatch 12/19/16 12/19/16 12/19/16 06:34 06:34 07:56 WBC RBC 3.37 L Hgb 9.5 L Hct 29.1 L Plt Count Lymph % (Auto) 38.8 H [place] % (Auto) 11.5 H Eos % (Auto) Lymph # Seg Neutrophils % Seg Neuts % (Manual) Lymphocytes % (Manual) Monocytes % (Manual) Lymphocytes # (Manual) INR APTT Activated Clotting Time POC ABG pH POC ABG pO2 Sodium Potassium 3.4 L Chloride Carbon Dioxide BUN Creatinine 2.1 H Glucose 117 H POC Glucose 124 H Uric Acid Calcium AST ALT Total Creatine Kinase Albumin Urine WBC (Auto) Urine Creatinine Urine Chloride Crossmatch 12/19/16 12/19/16 12/20/16 11:46 16:40 08:34 WBC RBC Hgb Hct Plt Count Lymph % (Auto) [place] % (Auto) Eos % (Auto) Lymph # Seg Neutrophils % Seg Neuts % (Manual) Lymphocytes % (Manual) Monocytes % (Manual) Lymphocytes # (Manual) INR APTT Activated Clotting Time POC ABG pH POC ABG pO2 Sodium Potassium Chloride Carbon Dioxide BUN Creatinine Glucose POC Glucose 152 H 295 H 186 H Uric Acid Calcium AST ALT Total Creatine Kinase Albumin Urine WBC (Auto) Urine Creatinine Urine Chloride Crossmatch 12/20/16 12/20/16 12/20/16 10:53 12:24 16:33 WBC RBC Hgb Hct Plt Count Lymph % (Auto) [place] % (Auto) Eos % (Auto) Lymph # Seg Neutrophils % Seg Neuts % (Manual) Lymphocytes % (Manual) Monocytes % (Manual) Lymphocytes # (Manual) INR APTT Activated Clotting Time POC ABG pH POC ABG pO2 Sodium Potassium 3.5 L Chloride Carbon Dioxide BUN 23 H Creatinine 3.0 H Glucose 204 H POC Glucose 227 H 250 H Uric Acid Calcium AST ALT Total Creatine Kinase Albumin Urine WBC (Auto) Urine Creatinine Urine Chloride Crossmatch 12/20/16 12/21/16 12/21/16 21:02 08:42 08:42 WBC 3.6 L RBC 3.28 L Hgb 9.5 L Hct 28.6 L Plt Count Lymph % (Auto) [place] % (Auto) 14.7 H Eos % (Auto) Lymph # 1.1 L Seg Neutrophils % Seg Neuts % (Manual) Lymphocytes % (Manual) Monocytes % (Manual) Lymphocytes # (Manual) INR APTT Activated Clotting Time POC ABG pH POC ABG pO2 Sodium Potassium 3.5 L Chloride Carbon Dioxide BUN 23 H Creatinine 2.3 H Glucose 197 H POC Glucose 232 H Uric Acid Calcium AST ALT Total Creatine Kinase Albumin Urine WBC (Auto) Urine Creatinine Urine Chloride Crossmatch 12/21/16 12/21/16 09:58 12:28 WBC RBC Hgb Hct Plt Count Lymph % (Auto) [place] % (Auto) Eos % (Auto) Lymph # Seg Neutrophils % Seg Neuts % (Manual) Lymphocytes % (Manual) Monocytes % (Manual) Lymphocytes # (Manual) INR APTT Activated Clotting Time POC ABG pH POC ABG pO2 Sodium Potassium Chloride Carbon Dioxide BUN Creatinine Glucose POC Glucose 229 H 228 H Uric Acid Calcium AST ALT Total Creatine Kinase Albumin Urine WBC (Auto) Urine Creatinine Urine Chloride Crossmatch
== END 2016-12-21 19:00 | disposition home health service (06) | DRG 246 ==
LOC: OPU 06:56 → 4A 12:49 → OBSVTOIN 11-23 07:30 → CC1 11-24 20:58 → 4A 11-27 23:38
PROVIDERS: ADMIT Internal Medicine Cardiovascular Disease; ATTEND Internal Medicine
PROC: 027034Z Dilation of Coronary Artery, One Artery with Drug-eluting Intraluminal Device, Percutaneous Approach (ICD-10-PCS; principal; 2016-11-22)
PROC: 4A023N8 Measurement of Cardiac Sampling and Pressure, Bilateral, Percutaneous Approach (ICD-10-PCS; 2016-11-22)
PROC: B2111ZZ Fluoroscopy of Multiple Coronary Arteries using Low Osmolar Contrast (ICD-10-PCS; 2016-11-22)
PROC: B2151ZZ Fluoroscopy of Left Heart using Low Osmolar Contrast (ICD-10-PCS; 2016-11-22)
PROC: 30233N1 Transfusion of Nonautologous Red Blood Cells into Peripheral Vein, Percutaneous Approach (ICD-10-PCS; 2016-11-22)
PROC: 4A033R1 Measurement of Arterial Saturation, Peripheral, Percutaneous Approach (ICD-10-PCS; 2016-11-22)
PROC: 5A1D60Z (ICD-10-PCS; 2016-11-22)
PROC: 02H633Z Insertion of Infusion Device into Right Atrium, Percutaneous Approach (ICD-10-PCS; 2016-12-14)
PROC: B2141ZZ Fluoroscopy of Right Heart using Low Osmolar Contrast (ICD-10-PCS; 2016-12-14)
PROC: 05PYX3Z Removal of Infusion Device from Upper Vein, External Approach (ICD-10-PCS; 2016-12-21)
DX: I25.110 Atherosclerotic heart disease of native coronary artery with unstable angina pectoris (principal); G92 Toxic encephalopathy; N17.9 Acute kidney failure, unspecified; D62 Acute posthemorrhagic anemia; R18.8 Other ascites; I13.0 Hypertensive heart and chronic kidney disease with heart failure and stage 1 through stage 4 chronic kidney disease, or unspecified chronic kidney disease; E87.5 Hyperkalemia; N18.3 Chronic kidney disease, stage 3 (moderate); I27.2 Other secondary pulmonary hypertension; I25.5 Ischemic cardiomyopathy; E78.5 Hyperlipidemia, unspecified; E66.9 Obesity, unspecified; G47.30 Sleep apnea, unspecified; H54.8 Legal blindness, as defined in USA; K59.00 Constipation, unspecified; I50.9 Heart failure, unspecified; E11.22 Type 2 diabetes mellitus with diabetic chronic kidney disease; Z88.0 Allergy status to penicillin; Z95.1 Presence of aortocoronary bypass graft; Z90.49 Acquired absence of other specified parts of digestive tract; Z90.710 Acquired absence of both cervix and uterus; Z68.31 Body mass index [BMI] 31.0-31.9, adult; Z98.61 Coronary angioplasty status
CPT/HCPCS: 36415; 36556; 36558; 36600; 70450; 71010; 71020; 74000; 76700; 76770; 76857; 76937; 77001; 80048; 80053; 80074; 81001; 81003; 82140; 82436; 82550; 82553; 82570; 82803; 82962; 83930; 84133; 84165; 84300; 84443; 84484; 84550; 85007; 85014; 85018; 85025; 85027; 85347; 85610; 85730; 86038; 86140; 86850; 86900; 86901; 86920; 89050; 92937; 93005; 93010; 93461; 94660; 94760; A9270-GY; C1750; C1752; C1769; C1874; C1887; C1894; C9604; G0378; G8978-GP; G8979-GP; J0885; J1200; J1644; J1815; J1940; J2250; J2270; J2405; J3010; J3370; J7030; J7040; P9016; P9047; Q0162; Q0169; Q9967